=== PATIENT | male | born 1980 | race Caucasian/White ===

== ENCOUNTER 2016-08-12 14:59 | Inpatient (IN) | payer OTHER ==
[~2016-08-12] VITALS: Ht 188 cm; Wt 113.1 kg
[~2016-08-12 14:59] MED LIST: AMLODIPINE BESY10 M1 PO; AMOXICILLIN500 M3 PO; ATIVAN1 M1 PO; ATORVASTATIN CA10 M1 PO; BENTYL20 M1 PO; BENZTROPINE MESY1 M1; CHLORPROMAZINE100 M2; CLINDAMYCIN HC300 M1 PO; DEPAKOTE500 M1 PO; DILAUDID2 MG PO; DIVALPROEX SOD250 M2 PO; FOLIC ACID 1 MG PO; GABAPENTIN300 M2 PO; IBUPROFEN800 M1 PO; LATUDA40 M1 PO; LISINOPRIL20 M1 PO; LITHIUM CARBON600 MG PO; LOPRESSOR50 MG PO; MELATONIN5 M1 PO; NAPROSYN500 MG PO; NAPROXEN500 M2 PO; NAPROXEN500 MG PO; NEURONTIN100 MG PO; NEURONTIN400 MG PO; NICOTINE LOZENGE2 MG PO; NORCO 5-325 TA1 EACH PO; OLANZAPINE20 M1 PO; PERCOCET 325 MG1 TA2 PO; PERCOCET 5-3251 EACH PO; PREDNISONE10 MG PO; SEROQUEL (MONO200 MG PO; SEROQUEL 100MG100 MG PO; SEROQUEL50 MG PO; TRAZODONE HCL100 M1 PO; VALIUM5 M1 PO; VITAMIN B-150 MG PO; WELLBUTRIN XL300 MG PO; ZOFRAN ODT4 M1 SL
--- NOTE | 2016-08-12 15:05 | NUR ---
PT STATES HE TOOK AN OVERDOSE OF FLEXERIL 400MG IN AN ATTEMPT TO KILL HIMESELF. PT STATES HE HAS BEEN DEPRESSED. PT ADMITS TO ETOH DAILY AND NEEDS DETOX FROM THAT ALSO. PT STATES HE ALSO SMOKES POT. +SI -HI. PT LAST DETOX WAS 2 WEEKS AGO.
--- NOTE | 2016-08-12 15:06 | NUR ---
PT REPORTS HIS LAST DRINK WAS YESTERDAY
--- NOTE | 2016-08-12 15:11 | ED PSYCHIATRIC COMPLAINT ---
History of Present Illness General Chief Complaint: ETOH/Drug Related Complaint Stated Complaint: ?OVERDOSE Vital Signs & Intake/Output Vital Signs & Intake/Output Vital Signs Date Time Temp Pulse Resp B/P Pulse O2 O2 Flow FiO2 Ox Delivery Rate 08/12 1505 96.7 117 18 153/99 95 Room Air Allergies Coded Allergies: fluoxetine (Intermediate, ANXIETY 06/24/16) Reconcile Medications Divalproex Sodium (Depakote) 500 MG TABLET.DR 1,500 MG PO DAILY MENTAL HEALTH (Reported) Gabapentin 300 MG CAPSULE 1 CAP PO TID ANXIETY (Reported) Lisinopril 20 MG TABLET 1 TAB PO DAILY BP (Reported) Nicotine Polacrilex (Nicotine Lozenge) 2 MG LOZENGE 1 GUILLE PO AD PRN SMOKING CESSATION (Reported) Olanzapine 20 MG TABLET 0.5 TAB PO QPM MENTAL HEALTH (Reported) Trazodone HCl 100 MG TABLET 1 TAB PO QPM SLEEP (Reported) Triage Note: PT STATES HE TOOK AN OVERDOSE OF FLEXERIL 400MG IN AN ATTEMPT TO KILL HIMESELF. PT STATES HE HAS BEEN DEPRESSED. PT ADMITS TO ETOH DAILY AND NEEDS DETOX FROM THAT ALSO. PT STATES HE ALSO SMOKES POT. +SI -HI. PT LAST DETOX WAS 2 WEEKS AGO. Past History Travel History Traveled to [place] past 21 day No Medical History Neurological: delerium tremens, restless leg syndrome, ETOH W/D SEIZURES EENT: NONE Cardiovascular: hypertension, hyperlipidemia Respiratory: NONE Gastrointestinal: NONE Hepatic: NONE Renal: NONE Musculoskeletal: LEFT KNEE MENISCAL TEAR Psychiatric: anxiety, depression, substance abuse, S.I. BIPOLAR DISORDER OVERDOSE suicide attempt X 15 events Endocrine: NONE Blood Disorders: NONE Cancer(s): NONE SU[employer]/Reproductive: NONE History of MRSA: No History of VRE: No History of CDIFF: No Surgical History Surgical History: hernia repair-umbilical Psychosocial History Who do you live with Patient/Self Services at Home None What is your primary language Mauritanian Tobacco Use: Current Daily Use Daily Tobacco Use Amount/Type: => 5 Cigarettes daily ETOH Use: alcoholic Illicit Drug Use: denies illicit drug use Progress Plan of Care: Orders Procedure Date/time Status CIWA 08/12 1516 Active Continuous Observation Monitor 08/12 1510 Active URINE DRUGS OF ABUSE 08/12 1510 Active ACETOMINOPHEN 08/12 1510 Active TROPONIN LEVEL 08/12 1510 Active SALICYLATE 08/12 1510 Active ETHANOL 08/12 1510 Active COMPREHENSIVE METABOLIC PANEL 08/12 151 Active CBC WITHOUT DIFFERENTIAL 08/12 151 Active EKG 08/12 151 Active ED CRISIS PSYCH CONSULT 08/12 151 Active Departure Departure Condition: Stable Referrals: AISHA SUNG MD (PCP/Family) Departure Forms: Customer Survey General Discharge Information
--- NOTE | 2016-08-12 15:35 | ED PSYCHIATRIC COMPLAINT ---
History of Present Illness General Chief Complaint: ETOH/Drug Related Complaint Stated Complaint: ?OVERDOSE Source: patient Exam Limitations: no limitations Vital Signs & Intake/Output Vital Signs & Intake/Output Vital Signs Date Time Temp Pulse Resp B/P Pulse O2 O2 Flow FiO2 Ox Delivery Rate 08/13 0600 79 21 106/76 08/13 0400 97.3 75 22 122/74 08/13 0400 96 Nasal 3.0L Cannula 08/13 0200 77 19 118/78 08/13 0000 97.7 84 27 130/100 08/13 0000 97.7 84 27 130/100 97 Nasal 2.0L Cannula 08/13 0000 97 Nasal 2.0L Cannula 08/12 2199 82 15 115/71 08/12 2147 Nasal 2.0L Cannula 08/12 2027 97 Nasal 2.0L Cannula 08/12 2018 97.9 81 23 124/86 08/12 1915 96.7 97 16 125/75 08/12 1914 96.5 97 16 125/75 97 Nasal 6.0L Cannula 08/12 1810 96.5 91 16 125/66 08/12 1810 96.5 92 16 125/66 97 Nasal 6.0L Cannula 08/12 1659 97.1 95 14 142/83 08/12 1657 97.3 93 14 142/83 96 Nasal 6.0L Cannula 08/12 1622 93 Nasal 6.0L Cannula 08/12 1611 15 93 Nasal 6.0L Cannula 08/12 1610 98.3 90 15 143/83 08/12 1610 98.3 90 15 143/83 89 Room Air 08/12 1505 96.7 117 18 153/99 95 Room Air ED Intake and Output 08/13 0000 08/12 1200 Intake Total 384 Output Total 600 Balance -216 Intake, IV 384 Intake, Oral 0 Number 0 Bowel Movements Output, Urine 600 Patient 242 lb Weight Allergies Coded Allergies: fluoxetine (Intermediate, ANXIETY 06/24/16) Triage Note: PT STATES HE TOOK AN OVERDOSE OF FLEXERIL 400MG IN AN ATTEMPT TO KILL HIMESELF. PT STATES HE HAS BEEN DEPRESSED. PT ADMITS TO ETOH DAILY AND NEEDS DETOX FROM THAT ALSO. PT STATES HE ALSO SMOKES POT. +SI -HI. PT LAST DETOX WAS 2 WEEKS AGO. Triage Nurses Notes Reviewed? yes Onset: Abrupt HPI: 35-year-old male with a history of alcohol withdrawal seizures and DTs comes into emergency room after taking 400 mg of Flexeril at home. he reports that he recently started drinking alcohol again. Last drink was yesterday. Patient reports that he ran out of alcohol and decided to take 400 mg of Flexeril to try to end his life. Denies any other drug use. Patient just feels shaky at this time. Denies any pain. Denies any other associated symptoms. (JOHAN VILLARREAL) Reconcile Medications Acetaminophen (Tylenol Extra Strength) 500 MG TABLET 2 TAB PO AD PAIN/FEVER ( Reported) Atorvastatin Calcium 10 MG TABLET 1 TAB PO DAILY cholesterol (Reported) Cyclobenzaprine HCl 10 MG TABLET 1 TAB PO TID muscle relaxant (Reported) Divalproex Sodium (Depakote) 500 MG TABLET.DR 1,500 MG PO QHS MENTAL HEALTH ( Reported) Gabapentin 400 MG CAPSULE 1 CAP PO TID UNKNOWN (Reported) Lisinopril 20 MG TABLET 1 TAB PO DAILY BP (Reported) Nicotine Polacrilex (Nicotine Lozenge) 4 MG LOZENGE smoking cessation (Reported ) Olanzapine 20 MG TABLET 1 TAB PO QPM bipolar (Reported) Paroxetine HCl (Paxil) 10 MG TABLET 1 TAB PO DAILY UNKNOWN (Reported) Trazodone HCl 100 MG TABLET 1 TAB PO QPM SLEEP (Reported) (MOE PRIETO,SOFI) Past History Travel History Traveled to [place] past 21 day No Medical History Any Pertinent Medical History? see below for history Neurological: delerium tremens, restless leg syndrome, ETOH W/D SEIZURES EENT: NONE Cardiovascular: hypertension, hyperlipidemia Respiratory: NONE Gastrointestinal: NONE Hepatic: NONE Renal: NONE Musculoskeletal: LEFT KNEE MENISCAL TEAR Psychiatric: anxiety, depression, substance abuse, S.I. 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 No (JOHAN VILLARREAL) Review of Systems Review of Systems Constitutional: Reports: see HPI. EENTM: Reports: no symptoms. Respiratory: Reports: no symptoms. Cardiovascular: Reports: no symptoms. GI: Reports: no symptoms. Genitourinary: Reports: no symptoms. Musculoskeletal: Reports: no symptoms. Skin: Reports: no symptoms. Neurological/Psychological: Reports: see HPI. Hematologic/Endocrine: Reports: no symptoms. Immunologic/Allergic: Reports: no symptoms. All Other Systems: Reviewed and Negative (JOHAN VILLARREAL) Physical Exam Physical Exam General Appearance: well developed/nourished, mild distress Head: atraumatic Eyes: Bilateral: normal appearance, EOMI. Ears, Nose, Throat: normal ENT inspection, hearing grossly normal Neck: normal inspection Respiratory: normal breath sounds, no respiratory distress Cardiovascular: regular rate/rhythm, tachycardia Extremities: normal range of motion Neurological/Psychiatric: awake, alert, calm, depressed affect Appearance/Memory/Insight: appropriate appearance Behavoir/Eye Contact/Speech: cooperative Skin: intact, normal color, warm/dry SAD PERSONS Done? unobtained due to conditi (JOHAN VILLARREAL) Progress Differential Diagnosis: dementia, drug intoxication, drug overdose, drug withdrawal, electrolyte abnormality, encephalitis, hypoglycemia, hypothyroidism, IC hem/mass/tumor, meningitis Plan of Care: Orders Procedure Date/time Status ICU LAB BUNDLE 08/14 0500 Active Regular Diet 08/13 B Active House Staff 08/13 0754 Active ICU LAB BUNDLE 08/13 0500 Complete CBC WITHOUT DIFFERENTIAL 08/13 0500 Complete EKG 08/13 0500 Active Lab Add-on Test 08/13 0001 Active MISSING MEDICATION FORM 08/13 UNK Active EKG 08/12 2300 Active RT: Evaluation 08/128 Active Weight 08/12 2025 Active VTE Mechanical Prophylaxis 08/12 2025 Active Turn and Reposition 08/12 2025 Active Teach/Educate 08/12 2025 Active Skin Integrity Protocol 08/12 2025 Active Skin/Pressure Ulcer Assess (Sk 08/12 2025 Active Precautions 08/12 2025 Active Pain Treatment and Response 08/12 2025 Active Nutritional Intake, Monitor 08/12 2025 Active Isolation 08/12 2025 Active Patient Care Conference 08/12 2025 Active Activity/Ambulation 08/12 2025 Active ARTERIAL BLOOD GAS (GEN) 08/12 2008 Complete TRC EVALUATION (GEN) 08/12 1945 Complete OXYGEN SETUP (GEN) 08/12 1945 Active Pathway - chart 08/12 194 Active House Staff 08/12 194 Active Patient Data 08/12 194 Active SOCIAL WORK CONSULT 08/12 194 Active Code Status 08/12 194 Active VRE ACTIVE SURVIELLANCE 08/12 194 Active ACTIVE SURVEILLANCE NARES 08/12 194 Active Patient Data 08/12 1840 Active Admit to inpatient 08/12 1751 Active Vital Signs 08/12 1751 Active Code Status 08/12 1751 Complete Intake & Output 08/12 1622 Active CIWA 08/12 1516 Active Continuous Observation Monitor 08/12 1510 Complete URINE DRUGS OF ABUSE 08/12 1510 Complete ACETOMINOPHEN 08/12 1510 Complete TROPONIN LEVEL 08/12 1510 Complete SALICYLATE 08/12 1510 Complete PHOSPHORUS 08/12 1510 Complete MAGNESIUM 08/12 1510 Complete LIPASE 08/12 1510 Complete ETHANOL 08/12 1510 Complete COMPREHENSIVE METABOLIC PANEL 08/12 1510 Complete CBC WITHOUT DIFFERENTIAL 08/12 1510 Complete AMYLASE 08/12 1510 Complete EKG 08/12 1510 Active OXYGEN SETUP CHG 08/12 UNK Complete OXYGEN 08/12 UNK Complete OXYGEN TRANSPORT 08/12 UNK Complete THERAPIST ORDERS 08/12 UNK Complete OXYGEN SETUP (GEN) 08/12 UNK Complete Lab Add-on Test 08/12 UNK Active VTE Mechanical Prophylaxis 08/12 UNK Active Patient Safety Monitor 08/12 UNK Active Seizure Precautions 08/12 UNK Active Precautions 08/12 UNK Active CIWA 08/12 UNK Complete PSYCHIATRIC CONSULT 08/12 UNK Active Current Medications Sig/Minerva Start time Last Medication Dose Stop Time Status Admin Lorazepam 2 MG Q6 08/13 1200 AC (Ativan) Cyanocobalamin/ 1 BAG DAILY 08/13 1000 AC Thiamine/Pyridoxine (Vitamin in I.V.) Dextrose/Water 1,000 ML (D5W 1000) Laboratory Tests 08/13/16 0405: Anion Gap 8, Estimated GFR > 60, Glucose 87, Calcium 9.1, Phosphorus 3.6, Magnesium 2.2, Total Bilirubin 0.9, AST 15 L, ALT 32, Albumin 4.0, CBC w Diff NO MAN DIFF REQ, RBC 5.33, MCV 92.5, MCH 32.0 H, RDW 13.0, MPV 7.1 L, Gran % 38.8 L, Lymphocytes % 48.0, Monocytes % 9.4 H, Eosinophils % 3.2, Basophils % 0.6, Absolute Granulocytes 1.8, Absolute Lymphocytes 2.3, Absolute Monocytes 0.4 , Absolute Eosinophils 0.2, Absolute Basophils 0, PUBS MCHC 34.6 08/12/162044: P-50 (Temp Corrected) N, Oxyhemoglobin 95.6, Carboxyhemoglobin 5.7 *H, Methemoglobin 0.2, Calc Total Hemoglobin 17.0, Oxygen Content 21.5, O2 Concentration % 2L, Temperature 98.6, O2 Delivery Method N/C, Phlebotomy Draw Site RIGHT BRACHIAL 08/12/162044: pH 7.43, pCO2 39, pO2 77 L, HCO3 25, ABG O2 Sat (Measured) 90.0 L, P-50 (Temp Corrected) N, Carboxyhemoglobin 5.7 *H, O2 Concentration % 2L, Temperature 98.6, O2 Delivery Method N/C, Phlebotomy Draw Site RIGHT BRACHIAL 08/12/16 1600: CBC w Diff NO MAN DIFF REQ, RBC 5.32, MCV 91.5, MCH 32.0 H, RDW 13.0, MPV 7.0 L, Gran % 44.1, Lymphocytes % 43.7, Monocytes % 10.2 H, Eosinophils % 1.7, Basophils % 0.3, Absolute Granulocytes 1.6, Absolute Lymphocytes 1.6, Absolute Monocytes 0.4, Absolute Eosinophils 0.1, Absolute Basophils 0, PUBS MCHC 35.0, Urine Opiates Screen < 100.00, Methadone Screen < 40, Barbiturate Screen < 60, Ur Phencyclidine Scrn < 6.00, Amphetamines Screen < 100, U Benzodiazepines Scrn > 800 H, Urine Cocaine Screen < 50, Urine Cannabis Screen > 80.00 H 08/12/16 1510: Anion Gap 9, Estimated GFR > 60, BUN/Creatinine Ratio 11.8, Glucose 81, Calcium 9.5, Phosphorus 3.1, Magnesium 1.7, Total Bilirubin 0.9, AST 17, ALT 28, Alkaline Phosphatase 60, Troponin I < 0.01, Total Protein 7.3, Albumin 4.3, Globulin 3.0, Albumin/Globulin Ratio 1.4, Amylase < 30 L, Lipase 46, Salicylates < 1.0, Acetaminophen < 10.0 L, Serum Alcohol < 10.0 Microbiology 08/12 2029 UPPER RESP: Surveillance Culture - RECD 08/12 2029 GI: Surveillance Culture - RECD Patient was seen and examined with KALE Hi. He presented for a Flexeril overdose and suicide attempt. Upon arrival to the emergency department he became more obtunded although he was still easily arousable to touch. Poison control was contacted and recommends supportive care. He does have a history of significant alcohol withdrawal and should he require Ativan he would become more sedated and may require airway monitoring and management. He will be admitted to the ICU under Dr. Lockwood service. (SOFI ROSA MD) Initial ED EKG: NSR (SOFI ROSA MD) Departure Departure Clinical Impression Primary Impression: Overdose of muscle relaxant Secondary Impressions: ETOH abuse, Respiratory depression Referrals: AISHA SUNG MD (PCP/Family) Departure Forms: Customer Survey General Discharge Information Comments 08/12/2016 5:54:21 PM I spoke with poison control. Supportive care with monitoring on cardiac telemetry. Patient has a seizure then benzodiazepines. Patient has a widened QRS and sodium bicarbonate. Vital signs stable at this time. (JOHAN VILLARREAL) Departure Time of Disposition: 1751 Disposition: STILL A PATIENT Condition: Guarded Admission Note Spoke With: GONZALO LOCKWOOD MD Documentation of Exam: Documentation of any treatments & extenuating circumstances including Concerns Regarding Discharge (functional status, medication knowledge or non-compliance, living conditions, etc.) that warrant an admission rather than observation: [ICU MONITOR, AIRWAY MONITORING, NEURO CHECKS, IV FLUIDS, SUPPORTIVE CARE, MONITOR I+ O, TOX CONSULT, 1:1 SITTER, MONITOR FOR DETOX, CIWA PROTOCOL, CRISIS WHEN STABLE ] PA/HABILITATION WORKER Co-Sign Statement Statement: ED Attending supervision documentation- [X] I saw and evaluated the patient. I have also reviewed all the pertinent lab results and diagnostic results. I agree with the findings and the plan of care as documented in the PA's/HABILITATION WORKER's documentation. [X] I have reviewed the ED Record and agree with the PA's/HABILITATION WORKER's documentation. [] Additions or exceptions (if any) to the PAs/HABILITATION WORKER's note and plan are summarized below: [] (SOFI ROSA MD) Critical Care Note Critical Care Note Critical Care Time: 30-74 min (JOHAN VILLARREAL)
--- NOTE | 2016-08-12 16:08 | NUR ---
PT TO ROOM 6, WANDED BY SECURITY AND CHANGED INTO BLUE SCRUBS, SITTER PRESENT, EVAL BY KALE ADAM. BLOOD AND URINE SENT BY RUST, EKG DONE. IV EST, PT NOTED TO BE AROUSABLE BUT SLEEPY WITH RA SATS 89%. SATS 90-95 ON NC [address] ROSA. HOB ELEVATED. PER KALE AND DR ROSA, HOLD ATIVAN NOW GIVEN SEDATION. WILL CTM.
[2016-08-12 16:10] VITALS: BP 143/83
[2016-08-12 16:17] LABS: HEMATOCRIT 48.7 % (42-52); MEAN CORPUSCULAR VOLUME 91.5 FL (80.0-94.0); PLATELET COUNT 207 /CUMM (130-400); RED BLOOD CELL CT 5.32 /CUMM (4.70-6.10); WHITE BLOOD CELL COUNT 3.7 /CUMM (4.8-10.8)
[2016-08-12 16:18] LABS: ABSOLUTE BASOPHIL COUNT 0 /CUMM (0.0-0.2); ABSOLUTE EOSINOPHIL COUNT 0.1 /CUMM (0.0-0.7); ABSOLUTE GRANULOCYTE CT 1.6 /CUMM (1.4-6.5); ABSOLUTE LYMPH COUNT 1.6 /CUMM (1.2-3.4); ABSOLUTE MONOCYTE COUNT 0.4 /CUMM (0.10-0.60); BASOPHIL % 0.3 % (0.0-2.0); EOSINOPHIL % 1.7 % (0-5); GRANULOCYTE % 44.1 % (42.2-75.2)
[2016-08-12] MEDS ORDERED: GABAPENTIN400 M2 PO (16:34)
[2016-08-12] MEDS ORDERED: PAXIL10 M1 PO (16:34)
[2016-08-12] MEDS ORDERED: TYLENOL EXTRA500 M2 PO (16:36)
[2016-08-12 16:59] VITALS: BP 142/83
--- NOTE | 2016-08-12 17:00 | NUR ---
VSS, SITTER PRESENT. PT BECOMING MORE SEDATED, MOVES HEAD SLIGHTLY AND MUMBLES "COOL" WHEN ASKED TO SPEAK, MAINTAINING 02 SATS MID 90S ON NC. SEIZURE PADS IN PLACE.
--- NOTE | 2016-08-12 17:52 | NUR ---
D/W KALE ADAM, PT REMAINS VERY SEDATED THOUGH WITH STABLE VS. WILL CONT TO HOLD ATIVAN AT THIS TIME AND CTM. SITTER REMAINS IN ATTENDANCE.
[2016-08-12 18:10] VITALS: BP 125/66
--- NOTE | 2016-08-12 18:37 | NUR ---
REMAINS STABLE WITH VSS, SITTER IN ATTENDANCE, NO DETOX SX, REMAINS SEDATED, OPENS EYES AND GRUNTS WITH STIMULATION BUT DOES NOT SPEAK.
--- NOTE | 2016-08-12 18:48 | NUR ---
BED ASSIGNMENT 104
--- NOTE | 2016-08-12 18:55 | History & Physical ---
BONI GODFREY MD 08/12/16 5970: General Information and HPI MD Statement: I have seen and personally examined MAYO SÁNCHEZ and documented this H&P. The patient is a 35 year old M who presented for substance overdose and suicide attempt. History of Present Illness: 35-year-old male seen for evaluation of toxic ingestion after a suicidal attempt. Patient is obtundended and collateral information was obtained from ED records. This afternoon patient reportedly walked into the ER stating he took "400 mg of Flexeril "in an attempt to "kill himself ". At time of initial evaluation he reportedly had suicidal ideation and denied any homicidal ideation. He is mimimally rousable to verbal and tactile stimuli. When asked if he has any pain he slowly shakes his head indicating no. Review of systems is unobtainable. PMHx: EtOH abuse/dependence, EtOH withdrawal seizures, Delerium Tremens, Suicidial Ideation with "40+" attempts, Bipolar Disorder, Anxiety, Depression, Hypertension, Hyperlipidemia Allergies/Medications Allergies: Coded Allergies: fluoxetine (Intermediate, ANXIETY 06/24/16) bupropion (Mild, Increase in afshan, reported on a previous admission 08/13/16) Home Med list Acetaminophen (Tylenol Extra Strength) 500 MG TABLET 2 TAB PO AD PAIN/FEVER ( Reported) Atorvastatin Calcium 10 MG TABLET 1 TAB PO DAILY cholesterol (Reported) Cyclobenzaprine HCl 10 MG TABLET 1 TAB PO TID muscle relaxant (Reported) Divalproex Sodium (Depakote) 500 MG TABLET.DR 1,500 MG PO QHS MENTAL HEALTH ( Reported) Gabapentin 400 MG CAPSULE 1 CAP PO TID UNKNOWN (Reported) Lisinopril 20 MG TABLET 1 TAB PO DAILY BP (Reported) Nicotine Polacrilex (Nicotine Lozenge) 4 MG LOZENGE smoking cessation (Reported ) Olanzapine 20 MG TABLET 1 TAB PO QPM bipolar (Reported) Paroxetine HCl (Paxil) 10 MG TABLET 1 TAB PO DAILY UNKNOWN (Reported) Trazodone HCl 100 MG TABLET 1 TAB PO QPM SLEEP (Reported) Past History Travel History Traveled to [place] past 21 day No Medical History Neurological: delerium tremens, restless leg syndrome, ETOH W/D SEIZURES EENT: NONE Cardiovascular: hypertension, hyperlipidemia Respiratory: NONE Gastrointestinal: NONE Hepatic: NONE Renal: NONE Musculoskeletal: LEFT KNEE MENISCAL TEAR Psychiatric: anxiety, depression, substance abuse, S.I. 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 Ambulation: independent IADLs Independent: shopping, housework, finances, food prep, telephone, transportation , medication admin. Review of Systems Review of Systems Constitutional: Reports: see HPI. Exam & Diagnostic Data Last 24 Hrs of Vital Signs/I&O Vital Signs Date Time Temp Pulse Resp B/P Pulse O2 O2 Flow FiO2 Ox Delivery Rate 08/12 191 96.7 97 16 125/75 08/12 1914 96.5 97 16 125/75 97 Nasal 6.0L Cannula 08/12 1810 96.5 91 16 125/66 08/12 1810 96.5 92 16 125/66 97 Nasal 6.0L Cannula 08/12 1659 97.1 95 14 142/83 08/12 1657 97.3 93 14 142/83 96 Nasal 6.0L Cannula 08/12 1622 93 Nasal 6.0L Cannula 08/12 1611 15 93 Nasal 6.0L Cannula 08/12 1610 98.3 90 15 143/83 08/12 1610 98.3 90 15 143/83 89 Room Air 08/12 1505 96.7 117 18 153/99 95 Room Air Intake & Output 08/12 1600 08/12 0800 08/12 0000 Intake Total Output Total Balance Patient 113.398 kg Weight Physical Exam General Appearance Mild Distress Skin No Rashes, No Breakdown, No Significant Lesion HEENT Atraumatic, Mucous Membr. moist/pink, Pupils fixed and nonreactive Neck Supple, No LAD Cardiovascular Regular Rate, Normal S1, Normal S2, No Murmurs Lungs Clear to Auscultation, Normal Air Movement Abdomen Normal Bowel Sounds, Soft, No Hepatospenomegaly, No Masses, mild epigastric tenderness Neurological Lethargic/Somnolent, Pupils nonreactive Extremities No Clubbing, No Cyanosis, No Edema, Normal Pulses, No Tenderness/ Swelling Vascular Normal Pulses, Pulses Symmetrical Last 24 Hrs of Labs/Dieter: Laboratory Tests 08/12/16 1600: CBC w Diff NO MAN DIFF REQ, RBC 5.32, MCV 91.5, MCH 32.0 H, RDW 13.0, MPV 7.0 L, Gran % 44.1, Lymphocytes % 43.7, Monocytes % 10.2 H, Eosinophils % 1.7, Basophils % 0.3, Absolute Granulocytes 1.6, Absolute Lymphocytes 1.6, Absolute Monocytes 0.4, Absolute Eosinophils 0.1, Absolute Basophils 0, PUBS MCHC 35.0, Urine Opiates Screen < 100.00, Methadone Screen < 40, Barbiturate Screen < 60, Ur Phencyclidine Scrn < 6.00, Amphetamines Screen < 100, U Benzodiazepines Scrn > 800 H, Urine Cocaine Screen < 50, Urine Cannabis Screen > 80.00 H 08/12/16 1510: Anion Gap 9, Estimated GFR > 60, BUN/Creatinine Ratio 11.8, Glucose 81, Calcium 9.5, Total Bilirubin 0.9, AST 17, ALT 28, Alkaline Phosphatase 60, Troponin I < 0.01, Total Protein 7.3, Albumin 4.3, Globulin 3.0, Albumin/Globulin Ratio 1.4, Amylase Pending, Lipase Pending, Salicylates < 1.0, Acetaminophen < 10.0 L, Serum Alcohol < 10.0 Microbiology 08/12 1942 UPPER RESP: Surveillance Culture - ORD 08/12 1942 GI: Surveillance Culture - ORD Diagnostic Data EKG Results NSR HR 96, AL 168, QTc 430 Assessment/Plan Assessment: 35 year old male with an extensive history of psychiatric illness and multiple suicide attempts seen for polysubstance overdose and suicide attempt. Poison control was reportedly contacted by ED staff for which no immediate intervention was recommended other than supportive care and telementry monitoring. Vital signs: Temp 96.5-98.3, HR 91-117, RR 14-18, BP 125-153/66-99, O2 89-97% 6.0L via NC. Physical Exam: well developed, young somnolent appearing male in no acute distress with a normal cardio/pulmonary exam and mild epigastric abdominal tenderness and a limited neurological exam, pupils fixed and not reactive. Lab work demontrated a CBC/CMP/LFTs within normal limits. EKG NSR HR 97, AL 168, QTc 430.UTox positive for Cannabis and Benzodiazepines. Patient was admitted to the ICU for closer monitoring and respiratory support. Problem List: - Polysubstance overdose - Suicide attempt - Bipolar Disoder - Anxiety - Depression - EtOH Abuse/Dependence Psychiatry/Respiratory: History of EtOH Abuse/Dependence, DTs, EtOH Withdrawal Seizures, Multiple Suidice Attempts, Polysubstance abuse, Bipolar Disoder, Anxiety, Depression. He has many previous suicide attempts. - CIWA / Ativan PRN - Hold all home medications - MV/Thiamine/Folate - Respiratory support - Interval EKG monitoring for widened QRS, treat with NaHCO3 - Seizure procautions, treat with benzodiazepines - Psych consult when appropriate - Obtain collateral information - NPO Metabolic: Given patients substance ingestion electrolytes and EKG need to be monitored. -D51/2NS @ 75 -Daily CBC, Chemistries -Daily EKG Gastrointestinal: Patient responded to mild abdominal pressure and nodded when asked if his abdoment hurt. Given his history of polysubstance ingestion differentials such as pancreatitis should be considered. - Follow up amylase/lipase Cardiovascular: History of Hypertension, Hyperlipidemia. - Hold atorvastatin, lisinopril Diet - NPO DVT PPx - Heparin SC Code Status - FULL CODE as per records, confirm when alert As Ranked By This Provider Problem List: 1. Suicide attempt Core Measures/Miscellaneous Acute Coronary Syndrome ACS Diagnosis: No Cerebrovascular Accident CVA/TIA Diagnosis: No Congestive Heart Failure CHF Diagnosis: No Venous Thromboembolism VTE Risk Factors: No Risk Factors VTE Prophylaxis Ordered Inpt: [facility]- [facility] prophylaxis d/t: No contraindications No VTE Pharm Prophylaxis d/t: No contraindications VTE Diagnosis: No VTE Type: NONE VTE Confirmed by (Test): NONE Severe Sepsis Severe Sepsis Present: No Septic Shock Septic Shock Present: No Miscellaneous Documentation Attending Case Discussed With: GONZALO PRESTON MD Primary Care Physician: AISHA SUNG MD Patient sees these Specialists Unknown Level of Patient Care: Critical Care (CRI) PRERNA GAITAN 08/12/16 2015: Resident Review Statement Resident Statement: discussed with music intern Other Findings: He is 35-year-old man with past medical history of polysubstance abuse (history of lithium overdose status post hemodialysis twice), extensive history of multiple suicidal attempts and inpatient psych hospitalization, hypertension, bipolar disorder, depression, anxiety, alcohol abuse presented to ER after taking 400 mg of Flexeril at home. Most of the history was obtained from the ED staff because by the time we got into patient's room he was sedated and not able to provide history. He reported that he recently started drinking alcohol again. Last drink was yesterday. Patient reported that he ran out of alcohol and decided to take 400 mg of Flexeril to try to end his life. Denied any other drug use. Patient just felt shaky at that time. When he came into ER his temperature was 96.7, pulse 117, respiratory rate 18, blood pressure 153/99 and oxygen saturation 95% on room air. In ED he got 1 mg of IV Ativan 1. During the ED course he became drowsy and sedated. He was saturating 89% on room air. He was put on 6 L of oxygen via nasal cannula and oxygen saturation was 90-95%. Upon our evaluation patient was opening his eyes upon shaking and calling his name. He was able to follow commands. Was not able to provide much history but complaining of belly pain and back pain. Poison control was also contacted in ED and they recommended supportive care with cardiac monitoring. No one from family was contacted from ED. On [employer] there is a female friend contact number. I tried to call her but it's going directly to [email or web address] and that voicemail has been set up under different name. There is no other contact number in any previous medical record. Positive physical exam findings: Minimally reactive and dilated pupils, tachycardia on cardiac auscultation without any murmurs Pertinent labs on admission: WBC 3.7, U tox positive for benzos and cannabis EKG upon admission: Sinus tachycardia with heart rate 95, no acute ST-T wave changes, QTc 430 Assessment and plan He is 35-year-old man with past medical history of polysubstance abuse (history of lithium overdose status post hemodialysis twice), extensive history of multiple suicidal attempts and inpatient psych hospitalization, hypertension, bipolar disorder, depression, anxiety, alcohol abuse is going to be admitted in ICU for: Problem list 1. Acute hypoxemic respiratory failure secondary to substance overdose (took 400 mg of Flexeril). U tox positive for benzos and cannabis 2. History of polysubstance abuse and alcohol abuse 3. History of bipolar disorder/depression/anxiety/suicide attempts 4. History of hypertension Monitor vitals closely. Keep close eye on respiratory status. Low threshold for intubation. Telemetry monitoring. We will get ABGs now. Cyclobenzaprine is considered a Tricyclic antidepressant. Overdose can cause vital signs abnormalities, mental status change, seizures, cardiac conduction abnormalities. Will keep patient nothing by mouth for now given his mental status. Fall precautions, seizure precautions. In case of his seizures we can treat him with lorazepam. EKG in a.m. to see any QRS prolongation. In case of cardiac conduction abnormalities and QRS changes we can treat him with sodium bicarbonate. CIWA protocol. Ativan IV as needed per CIWA. Banana bag. IV fluids at rate of 1 25 mL per hour. Watch for DTs. Will check electrolytes daily and replete accordingly. Will avoid benzos and anticholinergics. Psych and social work consult. Subcutaneous heparin for DVT prophylaxis. Continue safety monitor. We are holding all his medications for now. Will check CT [employer]. Full code. GONZALO PRESTON MD 08/12/162121: Attending MD Review Statement Attending Statement Attending MD Statement: examined this patient, discuss w/resident/PA/CHUCK SPLITTER, agreed w/resident/PA/CHUCK SPLITTER, reviewed EMR data (avail), discussed with nursing, reviewed images, amended to note Attending Assessment/Plan: The patient is a 35 yo male with h/o bipolar disorder/depression, anxiety, EtOH dependence, HTN, HL and back pain as well as multiple suicide attempts who presented in the ED after admitted ingestion of 400 mg of cyclobenzaprine that was recently prescribed by his physician. His tox screen was also positive for benzos and cannabinoids. He had recently undergone alcohol detox. He was initially conversant in the ED, however became more somnolent with dilated pupils. His oxygen saturation dropped to 89% and he required nasal oxygen support. Physical Exam: VS: T 96.7, P 97, R 16, BP 125/75, PO 98% nasal canula 6 L HEENT: eyes- dilated and minimally responsive to light, unable to check EOM afia- dry mucosa w/o lesions, + gag reflex Neck: supple w/o adenopathy Chest: clear Cor: borderline tachy, nl S1, S2 w/o Abd: BS+, soft, NT, - HSM Ext: no edema Neuro: the patient was somnolent, however arousable at the time of my exam. OVIEDO, non-focal, DTR's and sensory intact, toes downgoing Labs/Tests: as above Impression/Plan: #Overdose Cyclobenzaprine- patient admitted to taking 400 mg of cyclobenzaprine on arrival in ED. Clinical course deteriorated in ED with progressive somnolence. EKG shows nl QRS, no arrhythmia noted. Plan: Admit to ICU for close cardiac and respiratory monitoring. Follow QRS on EKG and observe for arrhythmia and hypotension. If respiratory depression occurs, check ABG's - continue oxygen support. Aggressive IV hydration- may need to add bicarbonate to IV fluids if QRS widening or arrhythmia. Seizure precautions. Watch for aspiration. Please check CTPMP to see if patient has been prescribed benzos. Consider Flumazenil (BZD receptor antagonist) if benzo OD is suspected. Check ABG's. #H/O Alcohol Dependence/Abuse- recent detox noted and patient admitted to drinking some alcohol. Blood level negative at time of presentation. Concern regarding giving benzos (Ativan) in presence of current sedation. Plan: Will administer thiamine, MVI, folate, etc as per protocol. Concern if Ativan is needed as patient already sedated and may require respiratory support. #Bipolar/Anxiety/Depression/Suicide Attempt- Patient unable to give history at the time of my exam, however does have significant psychiatric history and multiple prior suicidal attempts. Has been on SSRI (paroxetine), Olanzapine, Trazodone, Divalproex & gabapentin. Patient stated he had not been taking psych meds. Plan: Will need sitter- psych consultation and most likely transfer to psychiatry service. #Hypertension- patient normally on Lisinopril. Must watch for hypotension with cyclobenzaprine overdose. Plan: Monitor BP and hold Lisinopril/antihypertensive at present. #Back Pain- patient received cyclobenzaprine from PCP office. Uncertain prior back pain workup. Plan: Will observe once sedation clears. #Leukopenia- WBC 3.7 which is new. This is possible side effect of cyclobenzaprine OD. Plan: Follow-up WBC in morning. #Hyperlipidemia- was on Atorvastatin. Plan: Hold medication at present. Will check OP chart ([employer] to obtain family contact numbers as nobody was reached based on information in IP chart.
[2016-08-12 19:15] VITALS: BP 125/75
--- NOTE | 2016-08-12 19:15 | NUR ---
HOUSE STAFF AT BEDSIDE. ICU CALLED FOR REPORT, NURSE UNABLE TO TAKE REPORT AT THIS TIME.
[2016-08-12] MEDS ORDERED: CYCLOBENZAPRINE10 M1 PO (19:27)
[2016-08-12] MEDS ORDERED: NICOTINE LOZENGE4 MG PO (19:28)
[2016-08-12] MEDS ORDERED: ATORVASTATIN CA10 M1 PO (19:37)
--- NOTE | 2016-08-12 19:37 | NUR ---
REPORT CALLED TO YAHIR ON ICU. TRANSPORT BOOKED.
[2016-08-12] MEDS ORDERED: OLANZAPINE20 M1 PO (19:38)
[2016-08-12 20:19] VITALS: BP 124/86
--- NOTE | 2016-08-12 21:23 | Admission Certification ---
Admission Certification Certification Statement - As attending physician, I certify that at the time of - admission, based on clinical presentation, severity of - symptoms, need for further diagnostic testing and - therapeutic interventions, and risk of adverse outcomes - without in-hospital treatment, in my clinical assessment, - this patient requires an acute hospital stay for a minimum - of two nights or longer. I have also considered psychsocial - factors such as support system, advanced age, financial - issues, cognitive issues, and failed out-patient treatments, - past re-admission history, safety of patient, and lack of - compliance as applicable. Specific rationale supporting this admission is: Patient admitted with presumed intentional overdose of cyclobenzaprine (Flexeril ) with total of 400 mg taken. Tox screen also positive for benzos and cannabinoids. Needs ICU admission and close neuro/VS monitoring. Cardiac monitoring for arrythmia.
--- NOTE | 2016-08-12 21:45 | NUR ---
REC'D REPORT FROM DEAN FRAZIER IN ER. DX: ETOH WD/SI. 2014 ARRIVED IN THE ICU TO ROOM 104 VIA STRETCHER ACCOMPANIED BY DEAN FRAZIER & SAWYER PLATA. TRANSFERRED LASHELL ONTO BED. HOOKED UP ON THE MONITOR. SR W/HR 87, SBP 130/MANUAL & AUTO/124. ON 4LNC POX >97% & TITRATED DOWN TO 2LNC POX 96%, LS CLEAR THROUGHOUT THE LOBES. DEAN FRAZIER STATED PT JUST VOIDED IN THE ER PRIOR TO COMING TO THE ICU. PT STATED STILL HAS SI FEELINGS & THIS IS HIS 16TH ATTEMPT FOR SI. SITTER AT BEDSIDE AT ALL TIMES. PT IS DROWSEY BUT AROUSABLE, HAD PERIODS OF CLARITY FOR SHORT WHILE ABLE TO ANSWER SOME QUESTIONS W/THE HX/ASSESSMENTS. NO FAMILY INVOLVEMENT STATED BY PT ONLY HAS A FRIEND NAMED BRIGIDA A CONTACT. PT WAS HALLUCINATING & HAD SLURRED/SLOWED SPEECH. OFF ON THE DATE KNOWS THE MONTH/YEAR. ORIENTED TO NAME/PLACE. TREMORS EVIDENT WHEN ARMS ARE HELD UP. CIWA 15. INFORMED DR. GAITAN RE. PT'S STATUS & DON'T GIVE ATIVAN TOO LETHARGIC. CONT TO MONITOR CLOSELY.
[2016-08-12 22:00] VITALS: BP 115/71
[2016-08-13] VITALS (10 sets, daily range): BP systolic 105–151; BP diastolic 69–100
--- NOTE | 2016-08-13 04:36 | NUR ---
SPOKE TO POISON CONTROL @0300. UPDATED ON PT'S STATUS. PT LETHARGIC BUT EASILY AROUSABLE. CIWA SCORE 0-13. INFORMED DR. SADLER RE. PT'S MENTAL STATUS & CIWA SCORE. NO ATIVAN GIVEN. HR 80'S & SBP 100-130'S. STILL TREMULLOUS, ORIENTED X2 STILL WANTS TO HARM HIMSELF. REASSURANCE GIVEN & SITTER AT HIS BEDSIDE @ALL TIMES. CONT TO MONITOR.
[2016-08-13 05:09] LABS: ABSOLUTE BASOPHIL COUNT 0 /CUMM (0.0-0.2); ABSOLUTE EOSINOPHIL COUNT 0.2 /CUMM (0.0-0.7); ABSOLUTE GRANULOCYTE CT 1.8 /CUMM (1.4-6.5); ABSOLUTE LYMPH COUNT 2.3 /CUMM (1.2-3.4); ABSOLUTE MONOCYTE COUNT 0.4 /CUMM (0.10-0.60); BASOPHIL % 0.6 % (0.0-2.0); EOSINOPHIL % 3.2 % (0-5); GRANULOCYTE % 38.8 % (42.2-75.2); HEMATOCRIT 49.3 % (42-52); MEAN CORPUSCULAR HGB CONC 34.6 G/DL (33.0-37.0); MEAN CORPUSCULAR VOLUME 92.5 FL (80.0-94.0); MEAN PLATELET VOLUME 7.1 FL (7.4-10.4); PLATELET COUNT 205 /CUMM (130-400); RED BLOOD CELL CT 5.33 /CUMM (4.70-6.10); WHITE BLOOD CELL COUNT 4.8 /CUMM (4.8-10.8)
--- NOTE | 2016-08-13 05:14 | NUR ---
PT MORE AWAKE. REQUESTING SOMETHING TO DRINK. DR. SADLER STATES HE CAN TAKE SIPS TOLERATED. TOOK SOME SIPS & TOLERATED. S/B DR. SADLER AT BEDSIDE. PT REQUESTED SOMETHING TO RELAX HIM BECAUSE HE'S SHAKY. ATIVAN 1MG IVP GIVEN FOR A CIWA SCORE 13. AFTER FEW MINUTES LATER C/O NAUSEA. INFORM DR. POLANCO RE. PT'S STATUS. CHECK QTC 425. ALRIGHT TO GIVE ZOFRAN. ORDERS GIVEN. ZOFRAN IVP GIVEN SEE EMAR. IVF @125ML/HR INFUSING WELL TO RHAND. CONT TO MONITOR.
[2016-08-13 09:15] LABS: LITHIUM < 0.2 mmol/L (0.6-1.2)
--- NOTE | 2016-08-13 09:18 | PN- Housestaff ---
See Addendum Subjective Follow-up For: Substance overdose as a suicide attempt Subjective: Patient was seen and examined, patient is drowsy but arousable to tactile stimuli, he answer's questions and immediately go back to sleep. Review of Systems Constitutional: Denies: chills, fever. Cardiovascular: Denies: chest pain, syncope. Respiratory: Reports: short of breath (very mild). Denies: cough, wheezing. Gastrointestinal: Reports: nausea. Denies: abdominal pain, vomiting. Objective Last 24 Hrs of Vital Signs/I&O Vital Signs Date Time Temp Pulse Resp B/P Pulse O2 O2 Flow FiO2 Ox Delivery Rate 08/13 08 97.5 80 18 118/70 95 Nasal 3.0L Cannula 08/13 0800 96 Nasal 3.0L Cannula 08/13 0600 79 21 106/76 08/13 0400 97.3 75 22 122/74 08/13 0400 96 Nasal 3.0L Cannula 08/13 0200 77 19 118/78 08/13 0000 97.7 84 27 130/100 08/13 0000 97.7 84 27 130/100 97 Nasal 2.0L Cannula 08/13 0000 97 Nasal 2.0L Cannula 08/12 2200 82 15 115/71 08/12 2147 Nasal 2.0L Cannula 08/12 2027 97 Nasal 2.0L Cannula 08/12 2018 97.9 81 23 124/86 08/12 1914 96.7 97 16 125/75 08/12 191 96.5 97 16 125/75 97 Nasal 6.0L Cannula 08/12 1810 96.5 91 16 125/66 08/12 1810 96.5 92 16 125/66 97 Nasal 6.0L Cannula 08/12 1659 97.1 95 14 142/83 08/12 1657 97.3 93 14 142/83 96 Nasal 6.0L Cannula 08/12 1622 93 Nasal 6.0L Cannula 08/12 1611 15 93 Nasal 6.0L Cannula 08/12 1610 98.3 90 15 143/83 08/12 1610 98.3 90 15 143/83 89 Room Air 08/12 1505 96.7 117 18 153/99 95 Room Air Intake & Output 08/13 1600 08/13 0800 08/13 0000 Intake Total 993 384 Output Total 600 600 Balance 393 -216 Intake, IV 873 384 Intake, Oral 120 0 Number 0 0 Bowel Movements Output, Urine 600 600 Patient 113.398 kg 109.883 kg Weight Physical Exam General Appearance: Alert, oriented to person and place but not time, drowsy & sleepy Skin: No Rashes HEENT: Atraumatic, PERRLA, EOMI, Mucous Membr. moist/pink Neck: No JVD Cardiovascular: Regular Rate, Normal S1, Normal S2, No Murmurs Lungs: Clear to Auscultation, Normal Air Movement Abdomen: Soft, No Tenderness Neurological: Normal Speech, drowsy and sleepy Extremities: No Edema Current Medications: Current Medications Sig/Minerva Start time Last Medication Dose Route Stop Time Status Admin Cyanocobalamin/ 1 BAG DAILY 08/13 1000 AC Thiamine/Pyridoxine IV Dextrose/Water 1,000 ML Cyanocobalamin/ 1 BAG DAILY 08/12 194 DC Thiamine/Pyridoxine IV Dextrose/Water 1,000 ML Dextrose/Sodium 1,000 ML .[id number] 08/12 194 DC Chloride IV Haloperidol 2 MG ONCE ONE 08/13 0900 DC PO 08/13 0901 Heparin Sodium 5,000 UNIT Q8 08/12 2200 08/13 (Porcine) SC 0504 Lorazepam 2 MG Q6 08/13 1200 AC PO Lorazepam 2 MG Q6 08/13 0812 DC PO Lorazepam 0 Q1P PRN 08/12 1945 AC 08/13 IV 0817 Lorazepam 0 .STK-MED ONE 08/12 1545 DC .ROUTE Lorazepam 1 MG ONCE ONE 08/12 1530 DC IV 08/12 1531 Magnesium Sulfate 1 GM ONCE ONE 08/12 2045 DC 08/12 Dextrose/Water 100 ML IV 08/13 0044 2230 Olanzapine 10 MG 2200 08/13 2200 AC PO Ondansetron HCl 4 MG Q6P PRN 08/13 0515 AC 08/13 IV 0514 Patient Medication 1 UNIT ONE NR 08/13 0830 Teaching ED 08/13 1430 Potassium Chloride 20 MEQ Q8H 08/[address] 08/13 Dextrose/Sodium 1,000 ML IV 0447 Chloride Last 24 Hrs of Lab/Dieter Results Last 24 Hrs of Labs/Mics: Laboratory Tests 08/13/16 0405: Anion Gap 8, Estimated GFR > 60, Glucose 87, Calcium 9.1, Phosphorus 3.6, Magnesium 2.2, Total Bilirubin 0.9, AST 15 L, ALT 32, Albumin 4.0, CBC w Diff NO MAN DIFF REQ, RBC 5.33, MCV 92.5, MCH 32.0 H, RDW 13.0, MPV 7.1 L, Gran % 38.8 L, Lymphocytes % 48.0, Monocytes % 9.4 H, Eosinophils % 3.2, Basophils % 0.6, Absolute Granulocytes 1.8, Absolute Lymphocytes 2.3, Absolute Monocytes 0.4 , Absolute Eosinophils 0.2, Absolute Basophils 0, PUBS MCHC 34.6, Valproic Acid 26.7 L, [place] < 0.2 L 08/12/162044: P-50 (Temp Corrected) N, Oxyhemoglobin 95.6, Carboxyhemoglobin 5.7 *H, Methemoglobin 0.2, Calc Total Hemoglobin 17.0, Oxygen Content 21.5, O2 Concentration % 2L, Temperature 98.6, O2 Delivery Method N/C, Phlebotomy Draw Site RIGHT BRACHIAL 08/12/162044: pH 7.43, pCO2 39, pO2 77 L, HCO3 25, ABG O2 Sat (Measured) 90.0 L, P-50 (Temp Corrected) N, Carboxyhemoglobin 5.7 *H, O2 Concentration % 2L, Temperature 98.6, O2 Delivery Method N/C, Phlebotomy Draw Site RIGHT BRACHIAL 08/12/16 1600: CBC w Diff NO MAN DIFF REQ, RBC 5.32, MCV 91.5, MCH 32.0 H, RDW 13.0, MPV 7.0 L, Gran % 44.1, Lymphocytes % 43.7, Monocytes % 10.2 H, Eosinophils % 1.7, Basophils % 0.3, Absolute Granulocytes 1.6, Absolute Lymphocytes 1.6, Absolute Monocytes 0.4, Absolute Eosinophils 0.1, Absolute Basophils 0, PUBS MCHC 35.0, Urine Opiates Screen < 100.00, Methadone Screen < 40, Barbiturate Screen < 60, Ur Phencyclidine Scrn < 6.00, Amphetamines Screen < 100, U Benzodiazepines Scrn > 800 H, Urine Cocaine Screen < 50, Urine Cannabis Screen > 80.00 H 08/12/16 1510: Anion Gap 9, Estimated GFR > 60, BUN/Creatinine Ratio 11.8, Glucose 81, Calcium 9.5, Phosphorus 3.1, Magnesium 1.7, Total Bilirubin 0.9, AST 17, ALT 28, Alkaline Phosphatase 60, Troponin I < 0.01, Total Protein 7.3, Albumin 4.3, Globulin 3.0, Albumin/Globulin Ratio 1.4, Amylase < 30 L, Lipase 46, Salicylates < 1.0, Acetaminophen < 10.0 L, Serum Alcohol < 10.0 Microbiology 08/12 2029 UPPER RESP: Surveillance Culture - RECD 08/12 2029 GI: Surveillance Culture - RECD Assessment/Plan Assessment: #Overdose Cyclobenzaprine patient admitted taking 400 mg of cyclobenzaprine on arrival in ED. Clinical course deteriorated in ED with progressive somnolence. EKG shows NL QRS, no arrhythmia noted. * We will continue cardiac and respiratory monitoring ICU. If patient continued to be stable he will be transferred to general medical. * First ABG result was 7.43///. * Seizure precautions. * Watch for aspiration.. #Alcohol Dependence/Abuse Recent detox noted and patient admitted to drinking some alcohol. Blood level negative at time of presentation. Concern regarding giving benzos (Ativan) in the presence of current sedation. He already received thiamine, MVI, folate, etc as per protocol. * Psych was consulted we'll follow up recommendations. #Bipolar/Anxiety/Depression/Suicide Attempt Pt has significant psychiatric history with multiple prior suicidal attempts. Has been on SSRI (paroxetine), Olanzapine, Trazodone, Divalproex & gabapentin. Patient stated he had not been taking psych meds. * will continue 1:1 sitter for suicidality * We will start patient on olanzapine 10 mg daily at bed time. the plan is to get him back to his home does of 20mg daily. * Patient received 2 mg of haloperidol oral once as per psych until olanzapine starts tonight. * Trazodone, gabapentin and Depakote may be held for now, until the patient clears. * Will follow any further psych consultation. #Hypertension patient normally on Lisinopril. To avoid hypotension associated with cyclobenzaprine overdose. * we'll hold Lisinopril/antihypertensive at present. #Hyperlipidemia on Atorvastatin. * Hold medication at present. #Diet * Regular diet #DVT prophylaxis * Subcutaneous heparin #CODE STATUS * FC Problem List: 1. ETOH abuse 2. Depression 3. Suicide attempt 4. Suicide ideation 5. Overdose of muscle relaxant Pain Ratin Pain Location: NA Pain Goal: Remain pain free Pain Plan: The assessment and plan Tomorrow's Labs & Rationales: CBC and BEP
--- NOTE | 2016-08-13 10:41 | Cons- Psychiatry ---
See Addendum Psychiatric Consult Date of Consult: 08/13/16 Reason for Consult: Suicide attempt" History of Present Illness: 35 M walked into the ED on 08/12/16 stating that he took 400 mg Flexeril in a suicide attempt. Last drink 08/11/16; the patient usually drinks 1/4 gallon of vodka daily since release from his last detox at [facility] on 05/31/16. Old girlfriend gave him a lorazepam daily for several days over a week ago for insomnia, but denies taking any since, despite positive utox. Cannabis smoked the night before presentation, but no other use recently. Patient reports trying as much as 300 mg trazodone for insomnia, but is currently prescribed 100 mg at bedtime. The patient has had multiple hospitalizations on acute inpatient psychiatry. He reports he is not allowed on [facility] anymore, and would prefer to go to [facility] Allergies: Coded Allergies: fluoxetine (Intermediate, ANXIETY 06/24/16) bupropion (Mild, Increase in afshan, reported on a previous admission 08/13/16) Current Medications: Current Medications Sig/Minerva Start time Last Medication Dose Route Stop Time Status Admin Cyanocobalamin/ 1 BAG DAILY 08/13 1000 AC 08/13 Thiamine/Pyridoxine IV 1001 Dextrose/Water 1,000 ML Cyanocobalamin/ 1 BAG DAILY 08/12 194 DC Thiamine/Pyridoxine IV Dextrose/Water 1,000 ML Dextrose/Sodium 1,000 ML .[id number] 08/12 194 DC Chloride IV Haloperidol 2 MG ONCE ONE 08/13 0900 DC 08/13 PO 08/13 0901 1003 Heparin Sodium 5,000 UNIT Q8 08/12 2200 AC 08/13 (Porcine) SC 0504 Lorazepam 2 MG Q6 08/13 1200 AC PO Lorazepam 2 MG Q6 08/13 0812 DC PO Lorazepam 0 Q1P PRN 08/12 1945 AC 08/13 IV 0817 Lorazepam 0 .STK-MED ONE 08/12 1545 DC .ROUTE Lorazepam 1 MG ONCE ONE 08/12 1530 DC IV 08/12 1531 Magnesium Sulfate 1 GM ONCE ONE 08/12 2045 DC 08/12 Dextrose/Water 100 ML IV 08/13 0044 2230 Olanzapine 10 MG 2200 08/13 2200 AC PO Ondansetron HCl 4 MG Q6P PRN 08/13 0515 AC 08/13 IV 0514 Patient Medication 1 UNIT ONE NR 08/13 0830 Teaching ED 08/13 1430 Potassium Chloride 20 MEQ Q8H 08/12 2014 DC 08/13 Dextrose/Sodium 1,000 ML IV 0447 Chloride Past History Past Medical History Neurological: delerium tremens, restless leg syndrome, ETOH W/D SEIZURES EENT: NONE Cardiovascular: hypertension, hyperlipidemia Respiratory: NONE Gastrointestinal: NONE Hepatic: NONE Renal: NONE Musculoskeletal: LEFT KNEE MENISCAL TEAR Psychiatric: anxiety, bipolar disease, depression, substance abuse, S.I. BIPOLAR DISORDER OVERDOSE suicide attempt X 15 events Endocrine: NONE Blood Disorders: NONE Cancer(s): NONE EXTRA HAND/Reproductive: NONE Past Surgical History Surgical History: hernia repair-umbilical Psychosocial History Strengths/Capabilities: Pt is able to articulate his wants and needs. Pt has insight into his mental health and substance abuse. Pt has had periods of sobriety, stability, and treatment. Physical Limitations (Interventions): None identified. Psychiatric Treatment History Psych Treatment Psychiatric Treatment Yes Inpatient Treatment Yes Outpatient Treatment Yes Location of Treatment Many: , [facility], [facility] Diagnosis: Bipolar D/O Polysubstance Abuse Risk Factors: high anxiety/distress, history of suicide atmpts, SA/MH hospitalized, substance abuse, poor impulse control, lives alone, male, limited support Substance Use/Abuse History Drug Use/Abuse Substances Used/Abused Yes Substance Abuse Treatment Substance Abuse Treatment Past Substance Abuse [place] Yes Inpatient Treatment Yes Outpatient Treatment Yes Location of Treatment Many presentations Assessment/Plan Mental Status Orientation: Person, Place, Situation Mental Status Exam: Lying in bed, arousable. A+OX4. Endorses visual and auditory hallucinations, denies tactile hallucinations, presents no amari delusions. Depression symptoms 8/10, anxiety 8/10; 10/10 is the most severe. Asked if he is suicidal, he states, "No, the bag with my medicine in it is locked up." He reports that ingestion of 400 mg Flexeril was intended to end his life. "I need to do something impulsive. I though 400 mg of muscle relaxer would kill me, but I guess not." He reports he feels safe in his apartment in [place], "but, I'm alone a lot." Lab Results: Laboratory Tests 08/135 2044 Blood Gas P-50 (Temp Corrected) N Oxyhemoglobin (94 - 100 %) 95.6 Carboxyhemoglobin (1.5 - 5.0 %) 5.7 *H Methemoglobin (0.0 - 3.0 %) 0.2 Calc Total Hemoglobin (13.5 - 18.0 %) 17.0 Oxygen Content (15 - 23 VOL%) 21.5 O2 Concentration % 2L Temperature (97.0 - 100.0 FARH) 98.6 O2 Delivery Method N/C Chemistry Sodium (137 - 145 mmol/L) 138 Potassium (3.5 - 5.1 mmol/L) 4.7 Chloride (98 - 107 mmol/L) 104 Carbon Dioxide (22 - 30 mmol/L) 27 Anion Gap (5 - 16) 8 BUN (9 - 20 mg/dL) 12 Creatinine (0.7 - 1.2 mg/dL) 1.1 Estimated GFR (>60 ml/min) > 60 Glucose (65 - 99 mg/dL) 87 Calcium (8.4 - 10.2 mg/dL) 9.1 Phosphorus (2.5 - 4.5 mg/dL) 3.6 Magnesium (1.6 - 2.3 mg/dL) 2.2 Total Bilirubin (0.2 - 1.3 mg/dL) 0.9 AST (17 - 59 U/L) 15 L ALT (21 - 72 U/L) 32 Albumin (3.5 - 5.0 g/dL) 4.0 Hematology CBC w Diff NO MAN DIFF REQ WBC (4.8 - 10.8 /CUMM) 4.8 RBC (4.70 - 6.10 /CUMM) 5.33 Hgb (14.0 - 18.0 G/DL) 17.0 Hct (42 - 52 %) 49.3 MCV (80.0 - 94.0 FL) 92.5 MCH (27.0 - 31.0 PG) 32.0 H RDW (11.5 - 14.5 %) 13.0 Plt Count (130 - 400 /CUMM) 205 MPV (7.4 - 10.4 FL) 7.1 L Gran % (42.2 - 75.2 %) 38.8 L Lymphocytes % (20.5 - 51.1 %) 48.0 Monocytes % (1.7 - 9.3 %) 9.4 H Eosinophils % (0 - 5 %) 3.2 Basophils % (0.0 - 2.0 %) 0.6 Absolute Granulocytes (1.4 - 6.5 /CUMM) 1.8 Absolute Lymphocytes (1.2 - 3.4 /CUMM) 2.3 Absolute Monocytes (0.10 - 0.60 /CUMM) 0.4 Absolute Eosinophils (0.0 - 0.7 /CUMM) 0.2 Absolute Basophils (0.0 - 0.2 /CUMM) 0 PUBS MCHC (33.0 - 37.0 G/DL) 34.6 Miscellaneous Phlebotomy Draw Site RIGHT BRACHIAL Toxicology Valproic Acid (50 - 120 ug/mL) 26.7 L [place] (0.6 - 1.2 mmol/L) < 0.2 L 08/12 1600 Blood Gas pH (7.35 - 7.45 PH) 7.43 pCO2 (35 - 45 TORR) 39 pO2 (80 - 100 TORR) 77 L HCO3 (21 - 28 MEQ/L) 25 ABG O2 Sat (Measured) (>96.0 %) 90.0 L P-50 (Temp Corrected) N Carboxyhemoglobin (1.5 - 5.0 %) 5.7 *H O2 Concentration % 2L Temperature (97.0 - 100.0 FARH) 98.6 O2 Delivery Method N/C Hematology CBC w Diff NO MAN DIFF REQ WBC (4.8 - 10.8 /CUMM) 3.7 L RBC (4.70 - 6.10 /CUMM) 5.32 Hgb (14.0 - 18.0 G/DL) 17.0 Hct (42 - 52 %) 48.7 MCV (80.0 - 94.0 FL) 91.5 MCH (27.0 - 31.0 PG) 32.0 H RDW (11.5 - 14.5 %) 13.0 Plt Count (130 - 400 /CUMM) 207 MPV (7.4 - 10.4 FL) 7.0 L Gran % (42.2 - 75.2 %) 44.1 Lymphocytes % (20.5 - 51.1 %) 43.7 Monocytes % (1.7 - 9.3 %) 10.2 H Eosinophils % (0 - 5 %) 1.7 Basophils % (0.0 - 2.0 %) 0.3 Absolute Granulocytes (1.4 - 6.5 /CUMM) 1.6 Absolute Lymphocytes (1.2 - 3.4 /CUMM) 1.6 Absolute Monocytes (0.10 - 0.60 /CUMM) 0.4 Absolute Eosinophils (0.0 - 0.7 /CUMM) 0.1 Absolute Basophils (0.0 - 0.2 /CUMM) 0 PUBS MCHC (33.0 - 37.0 G/DL) 35.0 Miscellaneous Phlebotomy Draw Site RIGHT BRACHIAL Toxicology Urine Opiates Screen (>2000 NG/ML) < 100.00 Methadone Screen (>300 NG/ML) < 40 Barbiturate Screen (>200 NG/ML) < 60 Ur Phencyclidine Scrn (>25 NG/ML) < 6.00 Amphetamines Screen (>1000 NG/ML) < 100 U Benzodiazepines Scrn (>200 NG/ML) > 800 H Urine Cocaine Screen (>300 NG/ML) < 50 Urine Cannabis Screen (>50 NG/ML) > 80.00 H 08/12 1510 Chemistry Sodium (137 - 145 mmol/L) 137 Potassium (3.5 - 5.1 mmol/L) 4.0 Chloride (98 - 107 mmol/L) 101 Carbon Dioxide (22 - 30 mmol/L) 27 Anion Gap (5 - 16) 9 BUN (9 - 20 mg/dL) 13 Creatinine (0.7 - 1.2 mg/dL) 1.1 Estimated GFR (>60 ml/min) > 60 BUN/Creatinine Ratio (7 - 25 %) 11.8 Glucose (65 - 99 mg/dL) 81 Calcium (8.4 - 10.2 mg/dL) 9.5 Phosphorus (2.5 - 4.5 mg/dL) 3.1 Magnesium (1.6 - 2.3 mg/dL) 1.7 Total Bilirubin (0.2 - 1.3 mg/dL) 0.9 AST (17 - 59 U/L) 17 ALT (21 - 72 U/L) 28 Alkaline Phosphatase (< 127 U/L) 60 Troponin I (<0.11 ng/ml) < 0.01 Total Protein (6.3 - 8.2 g/dL) 7.3 Albumin (3.5 - 5.0 g/dL) 4.3 Globulin (1.9 - 4.2 gm/dL) 3.0 Albumin/Globulin Ratio (1.1 - 2.2 %) 1.4 Amylase (30 - 110 U/L) < 30 L Lipase (23 - 300 U/L) 46 Toxicology Salicylates (0 - 20.0 mg/dL) < 1.0 Acetaminophen (10.0 - 30.0 ug/mL) < 10.0 L Serum Alcohol (<10 MG/DL) < 10.0 Diffential Diagnosis: Bipolar disorder MARY BETH, MRE depressed Substance-induced mood disorder Alcohol use disorder, recurrent, severe Cannabis abuse Benzodiazepine abuse Impression: The patient had been most recently treated at [facility] in [place]. He states that they want him to go to a rehab (drug/alcohol). A signed release form is in the chart to speak with Dr. Crowley. We are awaiting confirmation of psychotropic meds from [facility]. Martínez reports that he takes: Depakote ER 1500 mg PO at bedtime Gabapentin 300 mg PO 3X/day Zyprexa/olanzapine 20 mg PO at bedtime Trazodone 100 mg PO at bedtime Paxil/paroxetine 10 mg PO daily (Has been taking this for 5 days) The patient is a risk to himself and should not leave the hospital AMA, or otherwise, until cleared by psychiatry. We expect that he will need acute inpatient psychiatry admission when medically clear. He states that he prefers to go to [facility]. He is endorsing hallucinations and has a history of delirium tremens. He has not taken his olanzapine for a few days, so we will start this at a lower dose, and titrate up after a few days, as needed. Provisional Treatment Plan: 1. Continue 1:1 sitter for suicidality and flight risk. 2. We will assume control of the ETOH Detox protocol. 3. Haldol 2 mg PO one-time. This can be repeated later this afternoon, possibly at a 1 mg dose, before the olanzapine starts tonight. 4. Olanzapine 10 mg PO at bedtime. 5. Valproic acid level. 08/13/16 26.7 6. [place] level (The patient has not been on this medication, but he may have had some left at home.) 08/13/16: <0.2 7. Trazodone, gabapentin and Depakote may be held for now, until the patient clears. 8. Continue current banana bag, but please restart daily thiamine 100 mg, folate 1 mg and MVI. We will continue to follow along with you. Kong Gomez APRN, Pager [phone]
[2016-08-14] VITALS (11 sets, daily range): BP systolic 120–140; BP diastolic 60–90
--- NOTE | 2016-08-14 00:16 | NUR ---
PATIENT ALERT.STOOD AT SIDE OF BED.DIAPHORETIC AND SHAKY. MONITOR SINUS RHYTHM AT RATE OF 96.BP STABLE.LUNG SOUNDS CLEAR.SCHEDULED DOSE OF 2 MG ATIVAN GIVEN.
[2016-08-14 05:56] LABS: ABSOLUTE BASOPHIL COUNT 0 /CUMM (0.0-0.2); ABSOLUTE EOSINOPHIL COUNT 0.1 /CUMM (0.0-0.7); ABSOLUTE GRANULOCYTE CT 2.2 /CUMM (1.4-6.5); ABSOLUTE LYMPH COUNT 1.9 /CUMM (1.2-3.4); ABSOLUTE MONOCYTE COUNT 0.4 /CUMM (0.10-0.60); BASOPHIL % 0.4 % (0.0-2.0); EOSINOPHIL % 2.8 % (0-5); HEMATOCRIT 47.9 % (42-52); MEAN CORPUSCULAR HGB 31.9 PG (27.0-31.0); MEAN CORPUSCULAR HGB CONC 34.6 G/DL (33.0-37.0); MEAN CORPUSCULAR VOLUME 92.1 FL (80.0-94.0); MEAN PLATELET VOLUME 6.9 FL (7.4-10.4); PLATELET COUNT 193 /CUMM (130-400); RBC DISTRIBUTION WIDTH 12.6 % (11.5-14.5); WHITE BLOOD CELL COUNT 4.7 /CUMM (4.8-10.8)
--- NOTE | 2016-08-14 07:34 | PN- Housestaff ---
See Addendum Subjective Follow-up For: Suicidal attempts Substance abuse Subjective: Patient was seen and examined at bedside today. He is laying on the bed watching TV however looks mildly anxious. Patient reported some hands tremor. He denies chest pain, palpitation, shortness breath, nausea, vomiting, weakness, numbness, or any seizure activity. Review of Systems Constitutional: Denies: chills, diaphoresis, fever, malaise, weakness. Objective Last 24 Hrs of Vital Signs/I&O Vital Signs Date Time Temp Pulse Resp B/P Pulse O2 O2 Flow FiO2 Ox Delivery Rate 08/14 1317 97.8 80 18 140/80 08/14 0800 97.8 87 18 120/60 08/14 0800 93 Room Air Room Air 08/14 0800 97.8 87 20 120/60 93 Room Air Room Air 08/14 0000 98.0 96 20 134/90 08/14 0000 98.0 96 20 134/80 93 Room Air 08/14 0000 93 Room Air 08/13 2200 97.5 81 28 133/75 08/13 2000 97.6 94 20 136/84 08/13 2000 95 Nasal 2.0L Cannula 08/13 1600 96 Nasal 3.0L Cannula 08/13 1600 99.1 83 24 130/80 96 Nasal 3.0L Cannula 08/13 1400 99.0 91 16 151/69 Intake & Output 08/14 1600 08/14 0800 08/14 0000 Intake Total 440 2870 Output Total 2600 Balance 440 270 Intake, IV 270 Intake, Oral 440 2600 Number 0 Bowel Movements Output, Urine 2600 Patient 113.058 kg Weight Physical Exam General Appearance: Alert, Oriented X3, Cooperative, No Acute Distress Skin: No Rashes HEENT: Atraumatic, PERRLA, EOMI Neck: Supple Cardiovascular: Regular Rate, Normal S1, Normal S2, No Murmurs Lungs: Clear to Auscultation, Normal Air Movement Abdomen: Normal Bowel Sounds, Soft, No Tenderness Neurological: Normal Speech Extremities: No Cyanosis, No Edema, b/l Upper ext tremor Current Medications: Current Medications Sig/Minerva Start time Last Medication Dose Route Stop Time Status Admin Cyanocobalamin/ 1 BAG DAILY 08/13 1000 DC 08/13 Thiamine/Pyridoxine IV 1001 Dextrose/Water 1,000 ML Divalproex Sodium 1,500 MG AT BEDTIME 08/13 2200 AC 08/13 PO 2131 Folic Acid 1 MG DAILY 08/14 1000 AC 08/14 PO 1119 Folic Acid 1 MG DAILY 08/13 1402 DC PO Heparin Sodium 5,000 UNIT Q8 08/12 2200 AC 08/14 (Porcine) SC 0539 Lorazepam 0.5 MG ONCE 08/18 0000 AC PO 08/18 0001 Lorazepam 0.5 MG Q6H 08/17 0000 AC PO 08/17 1801 Lorazepam 0.5 MG ONCE ONE 08/16 1800 AC PO 08/16 1801 Lorazepam 1 MG Q6H 08/16 0000 AC PO 08/16 1201 Lorazepam 1.5 MG Q12H 08/15 0600 AC PO 08/15 1801 Lorazepam 1 MG Q12H 08/15 0000 AC PO 08/15 1201 Lorazepam 1.5 MG Q6 08/14 0600 AC 08/14 PO 08/14 1801 1119 Lorazepam 2 MG Q6 08/13 1200 DC 08/13 PO 08/14 0001 2356 Lorazepam 2 MG Q2P PRN 08/13 1115 08/13 IV 1512 Lorazepam 1 MG Q2P PRN 08/13 1115 AC 08/13 IV 2031 Multivitamins 1 TAB DAILY 08/14 1000 AC 08/14 PO 1119 Multivitamins 1 TAB DAILY 08/13 1402 DC PO Nicotine 14 MG DAILY 08/13 1831 AC 08/14 TOP 1119 Olanzapine 10 MG 2200 08/13 2200 AC 08/13 PO 2131 Ondansetron HCl 4 MG Q6P PRN 08/13 0515 AC 08/13 IV 0514 Patient Medication 1 UNIT ONE NR 08/13 0830 OK Teaching ED 08/13 1430 Thiamine HCl 100 MG DAILY 08/14 1000 AC 08/14 PO 1119 Thiamine HCl 100 MG DAILY 08/13 1403 DC PO Trazodone HCl 100 MG AT BEDTIME NEED.. 08/14 1145 AC PO Last 24 Hrs of Lab/Dieter Results Last 24 Hrs of Labs/Mics: Laboratory Tests 08/14/16 0530: Anion Gap 8, Estimated GFR > 60, Glucose 83, Calcium 9.2, Phosphorus 3.3, Magnesium 2.0, Total Bilirubin 0.6, AST 14 L, ALT 27, Albumin 3.8, CBC w Diff NO MAN DIFF REQ, RBC 5.20, MCV 92.1, MCH 31.9 H, RDW 12.6, MPV 6.9 L, Gran % 47.0, Lymphocytes % 40.9, Monocytes % 8.9, Eosinophils % 2.8, Basophils % 0.4, Absolute Granulocytes 2.2, Absolute Lymphocytes 1.9, Absolute Monocytes 0.4, Absolute Eosinophils 0.1, Absolute Basophils 0, PUBS MCHC 34.6 Assessment/Plan Assessment: #Overdose Cyclobenzaprine as suicidal attempts patient admitted taking 400 mg of cyclobenzaprine on arrival in ED. Clinical course deteriorated in ED with progressive somnolence. EKG shows NL QRS, no arrhythmia noted. * We will continue cardiac and respiratory monitoring ICU. If patient continued to be stable he will be transferred to general medical. * will continue 1:1 sitter for suicidality * First ABG result was 7.43/39//. * Seizure precautions. * Watch for aspiration. #Alcohol Dependence/Abuse Recent detox noted and patient admitted to drinking some alcohol. Blood level negative at time of presentation. He already received thiamine, MVI, folate, etc as per protocol. * we'll continue ETOH Detox protocol. * we'll continue Ativan taper * Psych was consulted we'll follow up recommendations. #Bipolar/Anxiety/Depression/Suicide Attempt Pt has significant psychiatric history with multiple prior suicidal attempts. Has been on SSRI (paroxetine), Divalproex & gabapentin. Patient stated he had not been taking psych meds. * We will start patient on olanzapine 10 mg daily at bed time. per psych after 3 -4 days, may increase to olanzapine 20 mg PO at bedtime.( Hold for arrhythmia or QTc greater than 475 mS. ) * We will start trazodone 100 mg PO at bedtime as needed, for insomnia. * Continue Depakote ER 1500 mg PO at bedtime * We'll check valproic acid level after 3 doses, at trough. This lab draw will be before the evening dose on 08/16/2016. * Psych may consider re-starting gabapentin tomorrow. * Will follow any further psych consultation. #Hypertension patient normally on Lisinopril. To avoid hypotension associated with cyclobenzaprine overdose. * we'll hold Lisinopril/antihypertensive at present. #Hyperlipidemia on Atorvastatin. * Hold medication at present. #Diet * Regular diet #DVT prophylaxis * Subcutaneous heparin #CODE STATUS * FC Problem List: 1. Anxiety 2. Depression 3. Suicide attempt Pain Ratin Pain Location: na Pain Goal: Remain pain free Pain Plan: see A&P Tomorrow's Labs & Rationales: cbc and bep
--- NOTE | 2016-08-14 11:45 | PN- Psychiatry ---
Assessment/Plan Impression: Depakote ER 1500 mg PO at bedtime was restarted last night by staff. He will need a VPA level checked on after 3 doses, at trough, which I will order. I will start trazodone tonight for insomnia. We may consider re-starting gabapentin tomorrow. Suggestion: 1. I have ordered a valproic acid level after 3 doses, at trough. This lab draw will be before the evening dose on 08/16/2016. 2. Continue Depakote ER 1500 mg PO at bedtime. 3. Continue olanzapine 10 mg PO at bedtime. After 3-4 days, may increase to olanzapine 20 mg PO at bedtime. Hold for arrhythmia or QTc greater than 475 mS. 4. I will start trazodone 100 mg PO at bedtime as needed, for insomnia. 5. Continue ETOH Detox protocol. 6. Maintain 1:1 sitter, due to recent suicide attempt. 7. Please advise when the patient is medically clear, and we will re-evaluate him for admission to [facility]. He is not to leave the hospital AMA, or otherwise , until cleared by psychiatry. We will continue to follow. Yasmine Gomez APRN, Pager [phone] Subjective Subjective: Alert and oriented. Denies current SI/HI. Denies current AVTH; presents no amari delusions.
--- NOTE | 2016-08-14 11:54 | NUR ---
Referral received on 08/12/16 via electronic industrial order clerk. This patient is a 35 year old man, admitted to the hospital on 08/12/16 with a suicidal gesture via overdose on flexiril. Case discussed with psychiatry who reports patient will likely be transferred to inpatient psychiatry when medically stable. Please call if other social work needs arise.
--- NOTE | 2016-08-14 15:56 | NUR ---
PATIENT REQUESTING HIS PHONE WHICH WAS LOCKED UP IN [facility] IN THE ER. PATIENT'S BELONGINGS PULLED FROM [facility], CELL PHONE REMOVED AND GIVEN TO PATIENT, AND OTHER BELONGINGS REACCOUNTED FOR (WALLET, KEYS, $.11, AND TWO LIGHTERS). PATIENT SIGNED APPROPRIATE SHEET AND BELONGINGS SEALED/RETURNED TO [facility].
--- NOTE | 2016-08-14 20:44 | NUR ---
PATIENT REPORTS ANXIETY AND FEELING LIKE HE IS CHEWING ON THE SIDE OF HIS MOUTH OR TALKING OUT OF THE SIDE OF HIS MOUTH.NO CHANGE IN SPEECH CLARITY. MOVES ALL EXTREMITIES WITH EQUAL STRENGTH.ATIVAN 1 MG GIVEN ACCORDING TO CIWA PROTOCOL.
[2016-08-15] VITALS: BP 110/90; BP 152/100
--- NOTE | 2016-08-15 | NUR ---
PATIENT PREPARED FOR TRANSFER TO [facility] ROOM 206 WITH SITTER. PATIENT REMAINS ALERT AND ORIENTED.CO-OPERATIVE.TRANSFER VIA W/C
[2016-08-15 02:00] VITALS: BP 110/72
--- NOTE | 2016-08-15 06:56 | NUR ---
PT TRANSFERRED TO 206, ARRIVING ON FLOOR APPX [id number]. PT A&O, COOPERATIVE. VSS. SITTER IN ROOM. PT RESTING COMFORTABLY. WILL CONTINUE TO MONITOR
[2016-08-15 07:58] VITALS: BP 118/64
[2016-08-15 12:00] VITALS: BP 136/78
--- NOTE | 2016-08-15 12:54 | PN- Psychiatry ---
See Addendum Assessment/Plan Impression: Identifying Info: 35-year-old single male presents to [facility] emergency department on 08/12/2016 status post Flexeril overdose. Observed on the critical care unit now on 2 [address] A. SUBJECTIVE "Last night I heard people's voices." Patient continues to express wish to go to [facility]. Brief ROS Gait: Not observed, denies issues Sleep: Adequate Appetite: Adequate OBJECTIVE Mental Status Exam Presentation/Appearance: Calm, Cooperative with evaluation. Hospital garb. Interviewed in bed Orientation: 4 Sensorium: Awake and alert Eye contact: Appropriate Affect: Somewhat blunted but congruent with stated mood Mood: Depressed Depression: Endorses Anxiety: Endorses Thought Content: - Endorses intermittent suicidal ideation denies current plan, recent overdose attempt. - Endorses auditory hallucinations of voices of people he knew, denies they're command in nature - Denies HI, VH, PI. - Denies Hopeless/Helpless Thoughts Thought Process: Linear and goal-directed Speech: Normal tone and rate Judgment: Poor Insight: Fair, patient understands need for treatment Cognition: Memory: Endorses short-term deficits related to recent ingestion Attention/Concentration: Grossly intact ASSESSMENT 35-year-old male presents to Hospital status post Flexeril ingestion and continues to endorse suicidal ideation. His no longer allowed on CPS and will require inpatient hospitalization at another facility. Differential diagnosis F31.9 Unspecified Bipolar and Related Disorder F10.20 Alcohol Use Disorder, severe F11.20 Opioid Use Disorder F14.20 Stimulant Use Disorder-Cocaine Rule out unspecified personality disorder Suggestion: 1. Bed search started, and awaiting reply from [facility], [place], and [place]. Patient is not to be admitted to [facility]. 2. Please continue sitter patient to be placed on Physicians Emergency Certificate prior to transport to [facility]. 3. Continue Ativan as currently ordered. Continue vitamin supplementation. 4. Continue psychotropic medications as currently ordered. Thank you for including psychiatry in this case we will continue to follow. Dmitri Li APRN, pager [phone] Subjective Subjective: .
[2016-08-15] MEDS ORDERED: OLANZAPINE10 M1 PO (14:11)
[2016-08-15] MEDS ORDERED: FOLIC ACID1 M1 PO (14:11)
[2016-08-15] MEDS ORDERED: SENNA PLUS TAB1 EACH PO (14:11)
[2016-08-15] MEDS ORDERED: ONE DAILY MULT1 EAC2 PO (14:11)
--- NOTE | 2016-08-15 14:13 | Patient Discharge Instructions ---
Discharge Instructions General Discharge Information You were seen/treated for: Suicide attempt with Overdoses cyclobenzaprine Alcohol abuse Polysubstance abuse Special Instructions: -Please follow-up with your primary care provider within 7 days after discharge. -Please follow-up with your psychiatrist 14 days after discharge -We have made changes to your home medications, please read the instructions carefully. -Please come back to the hospital if your symptoms got worse. Diet Recommended Diet: Heart Healthy Activity Full Activity/No Limits: Yes (as tolerated) Acute Coronary Syndrome Inclusion Criteria At DC or during hospital stay patient has or had the following: ACS DIAGNOSIS No Discharge Core Measures Meds if any: Prescribed or Continued at Discharge Meds if any: NOT Prescribed or Continued at Discharge Congestive Heart Failure Inclusion Criteria At DC or during hospital stay patient has or had the following: CHF DIAGNOSIS No Discharge Core Measures Meds if any: Prescribed or Continued at Discharge Meds if any: NOT Prescribed or Continued at Discharge Cerebrovascular accident Inclusion Criteria At DC or during hospital stay patient has or had the following: CVA/TIA Diagnosis No Discharge Core Measures Meds if any: Prescribed or Continued at Discharge Meds if any: NOT Prescribed or Continued at Discharge Venous thromboembolism Inclusion Criteria VTE Diagnosis No VTE Type NONE VTE Confirmed by (Test) NONE Discharge Core Measures - Per Current guidelines, there needs to be overlap - treatment for the first 5 days of Warfarin therapy. - If discharged on Warfarin prior to 5 days of - overlap therapy, the patient will need to be - assessed for post discharge needs including - *Post discharge parental anticoagulation - *Warfarin and/or parental anticoagulation education - *Follow up date to check INR post discharge At least 5 days overlap therapy as Inpatient No Meds if any: Prescribed or Continued at Discharge Note: Overlap Therapy is Warfarin and Anticoagulant Meds if any: NOT Prescribed or Continued at Discharge
--- NOTE | 2016-08-15 14:18 | Discharge Summary ---
Visit Information Visit Dates Admission Date: 08/12/16 Discharge Date: 08/15/16 Hospital Course Course Attending Physician: GONZALO PRESTON MD Primary Care Physician: ANA LILIA PRIETO,[facility] Course: 35-year-old male came with of toxic ingestion after a suicidal attempt. Patient was obtundended and collateral information was obtained from ED records. patient reportedly walked into the ER stating he took "400 mg of Flexeril "in an attempt to "kill himself ". At time of initial evaluation he reportedly had suicidal ideation and denied any homicidal ideation. He was mimimally rousable to verbal and tactile stimuli. PMHx: EtOH abuse/dependence, EtOH withdrawal seizures, Delerium Tremens, Suicidial Ideation with "40+" attempts, Bipolar Disorder, Anxiety, Depression, Hypertension, Hyperlipidemia Vital Signs Date Time Temp Pulse Resp B/P Pulse O2 O2 Flow FiO2 Ox Delivery Rate 08/12 1914 96.7 97 16 125/75 08/12 1914 96.5 97 16 125/75 97 Nasal 6.0L Cannula 08/12 1810 96.5 91 16 125/66 08/12 1810 96.5 92 16 125/66 97 Nasal 6.0L Cannula 08/12 1659 97.1 95 14 142/83 08/12 1657 97.3 93 14 142/83 96 Nasal 6.0L Cannula 08/12 1622 93 Nasal 6.0L Cannula 08/12 1611 15 93 Nasal 6.0L Cannula 08/12 1610 98.3 90 15 143/83 08/12 1610 98.3 90 15 143/83 89 Room Air 08/12 1505 96.7 117 18 153/99 95 Room Air Physical Exam General Appearance Mild Distress Skin No Rashes, No Breakdown, No Significant Lesion HEENT Atraumatic, Mucous Membr. moist/pink, Pupils fixed and nonreactive Neck Supple, No LAD Cardiovascular Regular Rate, Normal S1, Normal S2, No Murmurs Lungs Clear to Auscultation, Normal Air Movement Abdomen Normal Bowel Sounds, Soft, No Hepatospenomegaly, No Masses, mild epigastric tenderness Neurological Lethargic/Somnolent, Pupils nonreactive Extremities No Clubbing, No Cyanosis, No Edema, Normal Pulses, No Tenderness/ Swelling Vascular Normal Pulses, Pulses Symmetrical Laboratory Tests 08/12/16 1600: CBC w Diff NO MAN DIFF REQ, RBC 5.32, MCV 91.5, MCH 32.0 H, RDW 13.0, MPV 7.0 L, Gran % 44.1, Lymphocytes % 43.7, Monocytes % 10.2 H, Eosinophils % 1.7, Basophils % 0.3, Absolute Granulocytes 1.6, Absolute Lymphocytes 1.6, Absolute Monocytes 0.4, Absolute Eosinophils 0.1, Absolute Basophils 0, PUBS MCHC 35.0, Urine Opiates Screen < 100.00, Methadone Screen < 40, Barbiturate Screen < 60, Ur Phencyclidine Scrn < 6.00, Amphetamines Screen < 100, U Benzodiazepines Scrn > 800 H, Urine Cocaine Screen < 50, Urine Cannabis Screen > 80.00 H 08/12/16 1510: Anion Gap 9, Estimated GFR > 60, BUN/Creatinine Ratio 11.8, Glucose 81, Calcium 9.5, Total Bilirubin 0.9, AST 17, ALT 28, Alkaline Phosphatase 60, Troponin I < 0.01, Total Protein 7.3, Albumin 4.3, Globulin 3.0, Albumin/Globulin Ratio 1.4, Amylase Pending, Lipase Pending, Salicylates < 1.0, Acetaminophen < 10.0 L, Serum Alcohol < 10.0 Patient was admitted to the ICU for closer monitoring and respiratory support and eventually transferred to General Medicine floor. These medical conditions were obseverd and treated: #Overdose Cyclobenzaprine as suicidal attempts Initially patient was put on gentle IV hydration. No EKG changes. NO Hemodynamic instability. Patient was monitored about 48 hours in ICU and his mental condition improved significantly and he became completely alert and oriented. He subsequently was transferred to general medicine floor before getting transferred out of the hospital.CBC,BEP were unremarkable. #Alcohol Dependence/Abuse Patient was put on ativan for CIWA protocol and received thiamine, MVI, folate per protocol. Ativan was gradually been tapered. He was discharged on 1 mg PO Ativan every 6 hours with gradual taper within couple of days. #Bipolar/Anxiety/Depression/Suicide Attempt patient was put on 1-1 sitter.Pt has significant psychiatric history with multiple prior suicidal attempts. He has been on SSRI (paroxetine), Divalproex & gabapentin. Patient stated he had not been taking psych meds. Per psychiatry we restarted his olanzapine 10 mg daily, trazodone 100 mg at bedtime and Depakote ER 1500 mg PO at bedtime. Valproic acid level should be checked after 3 doses on 08/16/2016. Patient will be transferred to another inpatient psychiatric facility and he should follow-up with a psychiatrist after discharge. #Hypertension patient at home was on Lisinopril which was held initially during the hospitalization(concerning any interaction with cyclobenzaprine overdose) and we restarted lisinopril and upon discharge. Patient blood pressure was stable during the hospitalization. Allergies: Coded Allergies: fluoxetine (Intermediate, ANXIETY 06/24/16) bupropion (Mild, Increase in afshan, reported on a previous admission 08/13/16) Pertinent Lab Results: Laboratory Tests 08/14 0530 Chemistry Sodium (137 - 145 mmol/L) 139 Potassium (3.5 - 5.1 mmol/L) 4.7 Chloride (98 - 107 mmol/L) 105 Carbon Dioxide (22 - 30 mmol/L) 25 Anion Gap (5 - 16) 8 BUN (9 - 20 mg/dL) 13 Creatinine (0.7 - 1.2 mg/dL) 1.1 Estimated GFR (>60 ml/min) > 60 Glucose (65 - 99 mg/dL) 83 Calcium (8.4 - 10.2 mg/dL) 9.2 Phosphorus (2.5 - 4.5 mg/dL) 3.3 Magnesium (1.6 - 2.3 mg/dL) 2.0 Total Bilirubin (0.2 - 1.3 mg/dL) 0.6 AST (17 - 59 U/L) 14 L ALT (21 - 72 U/L) 27 Albumin (3.5 - 5.0 g/dL) 3.8 Hematology CBC w Diff NO MAN DIFF REQ WBC (4.8 - 10.8 /CUMM) 4.7 L RBC (4.70 - 6.10 /CUMM) 5.20 Hgb (14.0 - 18.0 G/DL) 16.6 Hct (42 - 52 %) 47.9 MCV (80.0 - 94.0 FL) 92.1 MCH (27.0 - 31.0 PG) 31.9 H RDW (11.5 - 14.5 %) 12.6 Plt Count (130 - 400 /CUMM) 193 MPV (7.4 - 10.4 FL) 6.9 L Gran % (42.2 - 75.2 %) 47.0 Lymphocytes % (20.5 - 51.1 %) 40.9 Monocytes % (1.7 - 9.3 %) 8.9 Eosinophils % (0 - 5 %) 2.8 Basophils % (0.0 - 2.0 %) 0.4 Absolute Granulocytes (1.4 - 6.5 /CUMM) 2.2 Absolute Lymphocytes (1.2 - 3.4 /CUMM) 1.9 Absolute Monocytes (0.10 - 0.60 /CUMM) 0.4 Absolute Eosinophils (0.0 - 0.7 /CUMM) 0.1 Absolute Basophils (0.0 - 0.2 /CUMM) 0 PUBS MCHC (33.0 - 37.0 G/DL) 34.6 Disposition Summary Disposition Principal Diagnosis: - EtOH Abuse/Dependence - Suicide attempt Additional Diagnosis: -HTN - Bipolar Disoder - Anxiety - Depression Discharge Disposition: other general hospital Discharge Instructions General Discharge Information Code Status: Full Code Patient's Diet: heart healthy Patient's Activity: as tolerated Follow-Up Instructions/Appts: -Please follow-up with your primary care provider within 7 days after discharge. -Please follow-up with your psychiatrist 14 days after discharge. -We have made changes to your home medications, please read the instructions carefully. -Please come back to the hospital if your symptoms got worse. Medications at Discharge Discharge Medications: Stop taking the following medications: Gabapentin (Gabapentin) 400 MG CAPSULE ORAL THREE TIMES DAILY Qty = 45 Paroxetine HCl (Paxil) 10 MG TABLET ORAL DAILY Qty = 15 Cyclobenzaprine HCl (Cyclobenzaprine HCl) 10 MG TABLET ORAL THREE TIMES DAILY Qty = 45 Olanzapine (Olanzapine) 20 MG TABLET ORAL Every night Qty = 15 Continue taking these medications: Lisinopril (Lisinopril) 20 MG TABLET 1 Tablet ORAL DAILY Qty = 30 Comments: PER PT Divalproex Sodium (Depakote) 500 MG TABLET. 1,500 Milligram ORAL TAKE AT BEDTIME Comments: Last Taken: 08/14/16 Time: 2200PM Trazodone HCl (Trazodone HCl) 100 MG TABLET 1 Tablet ORAL Every night Days = 30 Comments: Last Taken:08/14/16 Time: 2200PM Acetaminophen (Tylenol Extra Strength) 500 MG TABLET 2 Tablet ORAL As Directed Comments: NOT GIVEN Nicotine Polacrilex (Nicotine Lozenge) 4 MG LOZENGE DAILY Qty = 168 Comments: NOT GIVEN Atorvastatin Calcium (Atorvastatin Calcium) 10 MG TABLET 1 Tablet ORAL DAILY Qty = 90 Comments: NOT GIVEN IN HOSPITAL Start taking the following new medications: Olanzapine (Olanzapine) 10 MG TABLET 10 Milligram ORAL 2200 Days = 28 No Refills Comments: Last Taken: 08/14/16 Time: 2300PM Sennosides/Docusate Sodium (Senna Plus Tablet) 8.6 MG-50 MG TABLET 1 Tablet ORAL TWICE DAILY as needed for CONSTIPATION Days = 28 No Refills Comments: NOT GIVEN Folic Acid (Folic Acid) 1 MG TABLET 1 Milligram ORAL DAILY Days = 28 No Refills Comments: Last Taken: 08/15/16 Time: 0800AM Multivitamin (One Daily Multivitamin) 1 EACH TABLET 1 Tablet ORAL DAILY Days = 28 No Refills Comments: Last Taken: 08/15/16 Time: 0800AM Lorazepam (Ativan) 1 MG TABLET 0 ORAL SEE INSTRUCTIONS Qty = 60 No Refills Instructions: take 1 tab every 6 hours on 08/15 take 1 tab every 8 hours on 08/16 take 1 tab every 12 hours on 08/17 take half a tab every 12 hours on 08/18 take half a tab on 08/19 and then stop Comments: Last Taken: 08/15/16 Time: 1200PM Copies To: ANA LILIA PRIETO,AISHA Attending Review Statement Documenting Attending: TED HAHN M.D Other Findings: I have reviewed the discharge summary.
[2016-08-15] MEDS ORDERED: ATIVAN1 M1 PO (14:25)
--- NOTE | 2016-08-15 15:01 | NUR ---
NURSING NOTE: BELONGINGS GIVEN BACK TO PT. SIGNED FOR THEM
--- NOTE | 2016-08-15 15:04 | PN- Housestaff ---
MILENA PRIETO,YESI 08/15/16 1504: Subjective Follow-up For: Drug intoxication Suicidal ideation/attempt Subjective: Patient was seen and examined at bedside. He reports persistent tremor, anxiety and headache but with improvement. His CIWA ranging from 0-9 overnight. Required 4mg of IV Ativan PRN. Denies chest pain, palpitation, shortness breath, nausea, vomiting, weakness, numbness, or any seizure activity. Review of Systems Constitutional: Reports: see HPI. Objective Last 24 Hrs of Vital Signs/I&O Vital Signs Date Time Temp Pulse Resp B/P Pulse O2 O2 Flow FiO2 Ox Delivery Rate 08/15 1600 98.8 82 20 140/78 08/15 1600 98.8 82 20 140/78 92 Room Air 08/15 1200 80 20 136/78 08/15 0758 98.8 81 20 118/64 92 Room Air 08/15 0200 98.0 85 20 110/72 08/15 0000 98.1 80 20 152/100 93 Room Air 08/15 0000 97.8 86 18 110/90 93 Room Air 08/15 0000 93 Room Air 08/14 2000 98.4 92 28 140/90 94 Room Air 08/14 1941 98.4 92 28 140/90 Intake & Output 08/15 1600 08/15 0800 08/15 0000 Intake Total 1000 500 Output Total Balance 1000 500 Intake, IV 100 Intake, Oral 900 500 Number 0 Bowel Movements Physical Exam General Appearance: Alert, Oriented X3, Cooperative, No Acute Distress Current Medications: Current Medications Sig/Minerva Start time Last Medication Dose Route Stop Time Status Admin Divalproex Sodium 1,500 MG AT BEDTIME 08/13 2200 DCD 08/14 PO 2306 Folic Acid 1 MG DAILY 08/14 1000 DCD 08/15 PO 0812 Heparin Sodium 5,000 UNIT Q8 08/12 2200 DCD 08/15 (Porcine) SC 0557 Lorazepam 0.5 MG ONCE 08/18 0000 DC PO 08/18 0001 Lorazepam 0.5 MG Q6H 08/17 0000 DC PO 08/17 1801 Lorazepam 0.5 MG ONCE ONE 08/16 1800 CAN PO 08/16 1801 Lorazepam 1 MG Q6H 08/16 0000 DC PO 08/16 1201 Lorazepam 1 MG Q6 08/15 1234 DCD 08/15 PO 1702 Lorazepam 1.5 MG Q12H 08/15 0600 DC 08/15 PO 08/15 1801 0552 Lorazepam 1 MG Q12H 08/15 0000 DC 08/15 PO 08/15 1201 1150 Lorazepam 2 MG Q2P PRN 08/13 1115 DCD 08/14 IV 1325 Lorazepam 1 MG Q2P PRN 08/13 1115 DCD 08/15 IV 1605 Multivitamins 1 TAB DAILY 08/14 1000 DCD 08/15 PO 0812 Nicotine 14 MG DAILY 08/13 1831 DCD 08/15 TOP 0812 Olanzapine 10 MG 2200 08/15 2200 DCD PO Olanzapine 10 MG 2200 08/13 2200 DC 08/14 PO 2307 Ondansetron HCl 4 MG Q6P PRN 08/13 0515 DCD 08/13 IV 0514 Senna/Docusate Sodium 1 TAB BID PRN 08/15 0845 DCD PO Thiamine HCl 100 MG DAILY 08/17 1000 CAN Sodium Chloride 100 ML IV Thiamine HCl 100 MG Q8 08/15 1400 CAN Sodium Chloride 100 ML IV 08/17 0000 Thiamine HCl 100 MG ONCE ONE 08/15 1245 CAN Sodium Chloride 100 ML IV 08/15 1256 Thiamine HCl 100 MG DAILY 08/15 1237 DC Sodium Chloride 100 ML IV Thiamine HCl 100 MG DAILY 08/14 1000 DC 08/15 PO 0812 Trazodone HCl 100 MG AT BEDTIME NEED.. 08/14 1145 DCD 08/14 PO 2358 Assessment/Plan Assessment: #Overdose Cyclobenzaprine as suicidal attempts patient admitted taking 400 mg of cyclobenzaprine on arrival in ED. Clinical course deteriorated in ED with progressive somnolence. EKG shows NL QRS, no arrhythmia noted. * We will continue cardiac and respiratory monitoring ICU. If patient continued to be stable he will be transferred to general medical. * will continue 1:1 sitter for suicidality * First ABG result was 7.43/39/77/25. * Seizure precautions. * Watch for aspiration. #Alcohol Dependence/Abuse Recent detox noted and patient admitted to drinking some alcohol. Blood level negative at time of presentation. He already received thiamine, MVI, folate, etc as per protocol. * we'll continue ETOH Detox protocol. * we'll continue Ativan taper - 1mg Q6 PO * Psych was consulted we'll follow up recommendations. #Bipolar/Anxiety/Depression/Suicide Attempt Pt has significant psychiatric history with multiple prior suicidal attempts. Has been on SSRI (paroxetine), Divalproex & gabapentin. Patient stated he had not been taking psych meds. * We will start patient on olanzapine 10 mg daily at bed time. per psych after 3 -4 days, may increase to olanzapine 20 mg PO at bedtime.( Hold for arrhythmia or QTc greater than 475 mS. ) * We will start trazodone 100 mg PO at bedtime as needed, for insomnia. * Continue Depakote ER 1500 mg PO at bedtime * We'll check valproic acid level after 3 doses, at trough. This lab draw will be before the evening dose on 08/16/2016. * Psych may consider re-starting gabapentin tomorrow. * Will follow any further psych consultation. #Hypertension patient normally on Lisinopril. To avoid hypotension associated with cyclobenzaprine overdose. * we'll hold Lisinopril/antihypertensive at present. #Hyperlipidemia on Atorvastatin. * Hold medication at present. #Diet * Regular diet #DVT prophylaxis * Subcutaneous heparin #CODE STATUS * FC Problem List: 1. Alcohol intoxication 2. Depressed affect 3. Overdose of muscle relaxant Pain Ratin Pain Location: Headache Pain Goal: Remain pain free Pain Plan: Mild path Tomorrow's Labs & Rationales: None JOVANI PRIETO,TED 08/15/16 9247: Attending MD Review Statement Attending Statement Attending MD Statement: examined this patient, discuss w/resident/PA/STEAM SERVICE INSPECTOR, agreed w/resident/PA/STEAM SERVICE INSPECTOR, reviewed EMR data (avail), discussed with nursing, discussed with case mgmt, amended to note Attending Assessment/Plan: Patient seen and examined. Resting comfortably not in acute distress. Flat affect. His CIWA score don't improve as had spikes on and off overnight. Recommend changing his benzodiazepine taper to 1 mg every 6 hours. He has currently been accepted at an inpatient psychiatric facility and will be discharged to for further management of his suicidal ideation and continued taper of his benzodiazepine regimen.
[2016-08-15 16:00] VITALS: BP 140/78
--- NOTE | 2016-08-15 18:01 | NUR ---
1740 ALERT AND ORIENTED X 3. VITAL SIGNS STABLE. ON ROOM AIR. NO DISTRESS NOTED. DENIES CHEST PAIN. RESTING COMFORTABLY AT THIS TIME. SITTER AT BEDSIDE VERBALIZED UNDERSTANDING OF DISCHARGE PLAN
== END 2016-08-15 17:41 | disposition short-term general hospital (02) | DRG 812 ==
LOC: ENRESERVDT → ENRESERVTM → ERH 14:59 → CRI 17:51 → ENPENDDIS 17:51 → ERHI 17:51 → CRI 19:52 → 2NB 08-15 00:27
PROVIDERS: Emergency Medicine; Internal Medicine; Student in an Organized Health Care Education/Training Program; ADMIT Internal Medicine
DX: T48.1X2A Poisoning by skeletal muscle relaxants [neuromuscular blocking agents], intentional self-harm, initial encounter (principal); T42.4X2A Poisoning by benzodiazepines, intentional self-harm, initial encounter; T40.7X2A Poisoning by cannabis (derivatives), intentional self-harm, initial encounter; Y92.009 Unspecified place in unspecified non-institutional (private) residence as the place of occurrence of the external cause; F10.20 Alcohol dependence, uncomplicated; J96.01 Acute respiratory failure with hypoxia; F31.9 Bipolar disorder, unspecified; I10 Essential (primary) hypertension; E78.5 Hyperlipidemia, unspecified
CPT/HCPCS: CCU; 36415; 80307; 82436; 93005; 93010; 99232; G0480; J1644; J2405; J3490; J7042; J7060

== ENCOUNTER 2016-09-25 13:36 | Emergency (ER) | payer OTHER ==
[~2016-09-25] VITALS: Ht 188 cm; Wt 104.3 kg
[~2016-09-25 13:36] MED LIST changes: +CYCLOBENZAPRINE10 M1 PO; +FOLIC ACID1 M1 PO; +GABAPENTIN400 M2 PO; +NICOTINE LOZENGE4 MG PO; +OLANZAPINE10 M1 PO; +ONE DAILY MULT1 EAC2 PO; +PAXIL10 M1 PO; +SENNA PLUS TAB1 EACH PO; +TYLENOL EXTRA500 M2 PO
--- NOTE | 2016-09-25 14:14 | ED PSYCHIATRIC COMPLAINT ---
See Addendum History of Present Illness General Chief Complaint: Psychiatric Related Complaint Stated Complaint: +SI Source: patient, old records Exam Limitations: no limitations Vital Signs & Intake/Output Vital Signs & Intake/Output Vital Signs Date Time Temp Pulse Resp B/P Pulse O2 O2 Flow FiO2 Ox Delivery Rate 09/25 1748 98.0 81 16 126/77 05 Room Air 09/25 1621 97.3 87 18 140/80 95 Room Air 09/25 1339 97.5 130 18 150/94 96 Allergies Coded Allergies: fluoxetine (Intermediate, ANXIETY 06/24/16) bupropion (Mild, Increase in afshan, reported on a previous admission 08/13/16) Triage Note: 36 YEAR OLD MALE TO ER , STATES THAT HE HAS HAD INCREASED DEPRESSION FOR THE PAST WEEK WITH POSITIVE SI THOUGHTS. PT PLANS TO OVER DOSE. PT ALSO STATES THAT HE WAS IN REHAB AND THAT HE WALKED OUT A WEEK AGO. WHEN PT LEFT HE DIDN'T LEAVE WITH HIS MEDS. PT HAS BEEN WITHOUT DEPAKOTE/TRAZADONE/GABAPENTIN/PAXIL/LISINOPRIL.DEN IES DAILY ETOH, BUT STTAES THAT HE HAS BEEN SMOKING MARAJUANNA. Triage Nurses Notes Reviewed? yes Onset: Last week Duration: day(s):, constant, continues in ED, getting worse Timing: recent history Severity: severe Associated Symptoms: impaired concentration, insomnia, suicidal ideation HPI: 1 week prior to admission patient left alcohol and drug rehabilitation without his medications. He has developed anorexia insomnia depressed mood with suicidal thoughts by overdose. He denies fever chills nausea vomiting diarrhea abdominal pain chest pain shortness breath headache dysuria rash bleeding hallucination homicidal ideation (SUMMER PRIETO,LARRY) Reconcile Medications Atorvastatin Calcium 10 MG TABLET 1 TAB PO DAILY cholesterol (Reported) Divalproex Sodium (Depakote) 500 MG TABLET.DR 1,500 MG PO QHS MENTAL HEALTH ( Reported) Gabapentin 300 MG CAPSULE 1 CAP PO TID MENTAL HEALTH (Reported) Lisinopril 20 MG TABLET 1 TAB PO DAILY BP (Reported) Nicotine Polacrilex (Nicotine Lozenge) 4 MG LOZENGE somking (Reported) Olanzapine 20 MG TABLET 1 TAB PO QPM MENTAL HEALTH (Reported) Paroxetine HCl 20 MG TABLET 1 TAB PO DAILY MENTAL HEALTH (Reported) Trazodone HCl 100 MG TABLET 1 TAB PO QPM SLEEP (Reported) (JOSE ANTONIO ROSARIO DO) Past History Travel History Traveled to [place] past 21 day No Medical History Any Pertinent Medical History? see below for history Neurological: delerium tremens, restless leg syndrome, ETOH W/D SEIZURES EENT: NONE Cardiovascular: hypertension, hyperlipidemia Respiratory: NONE Gastrointestinal: NONE Hepatic: NONE Renal: NONE Musculoskeletal: LEFT KNEE MENISCAL TEAR Psychiatric: anxiety, bipolar disease, depression, substance abuse, S.I. 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 No (LARRY WHEELER MD) Review of Systems Review of Systems Constitutional: Reports: no symptoms. EENTM: Reports: no symptoms. Respiratory: Reports: no symptoms. Cardiovascular: Reports: no symptoms. GI: Reports: no symptoms. Genitourinary: Reports: no symptoms. Musculoskeletal: Reports: no symptoms. Skin: Reports: no symptoms. Neurological/Psychological: Reports: see HPI, anxiety, confusion, depressed. Hematologic/Endocrine: Reports: no symptoms. Immunologic/Allergic: Reports: no symptoms. All Other Systems: Reviewed and Negative (LARRY WHEELER MD) Physical Exam Physical Exam General Appearance: well developed/nourished, alert, awake, moderate distress Head: atraumatic, normal appearance Eyes: Bilateral: normal appearance, PERRL, EOMI. Ears, Nose, Throat: normal pharynx, normal ENT inspection, hearing grossly normal Neck: normal inspection, supple Respiratory: normal breath sounds Cardiovascular: regular rate/rhythm Gastrointestinal: soft, non-tender Extremities: normal range of motion Neurological/Psychiatric: no motor/sensory deficits, awake, alert, anxious, drawing tender II-XII nml as tested, depressed affect Appearance/Memory/Insight: disheveled, impaired insight Behavoir/Eye Contact/Speech: avoids eye contact, cooperative, normal speech Thoughts/Hallucinations: no apparent hallucination Skin: intact, normal color, warm/dry SAD PERSONS SAD PERSONS Response Value Male Sex? yes 1 Depression/Hopelessness? yes 2 Previous Attempts/Psych Care yes 1 Excessive Ethanol/Drug Use? yes 1 Rational Thinking Loss? yes 2 Single//? yes 1 Social Support? has no support 1 Stated Future Intent? yes 2 Total 11 SAD PERSONS Done? yes (LARRY WHEELER MD) Progress Differential Diagnosis: drug intoxication, drug overdose, drug withdrawal, electrolyte abnormality, hypoglycemia Plan of Care: Orders Procedure Date/time Status Regular Diet 09/25 L Active Continuous Observation Monitor 09/25 1412 Active URINE DRUG SCREEN FOR ER ONLY 09/25 141 Complete ACETOMINOPHEN 09/25 141 Complete SALICYLATE 09/25 141 Complete ETHANOL 09/25 141 Complete COMPREHENSIVE METABOLIC PANEL 09/25 141 Complete CBC WITHOUT DIFFERENTIAL 09/25 1412 Complete ED CRISIS PSYCH CONSULT 09/25 1412 Active Laboratory Tests 09/25/16 1450: Anion Gap 8, Estimated GFR > 60, BUN/Creatinine Ratio 16.0, Glucose 101 H, Calcium 9.6, Total Bilirubin 0.9, AST 15 L, ALT 30, Alkaline Phosphatase 57, Total Protein 6.8, Albumin 4.1, Globulin 2.7, Albumin/Globulin Ratio 1.5, CBC w Diff NO MAN DIFF REQ, RBC 5.22, MCV 91.4, MCH 31.7 H, RDW 12.9, MPV 6.8 L, Gran % 49.4, Lymphocytes % 38.6, Monocytes % 7.7, Eosinophils % 4.0, Basophils % 0.3, Absolute Granulocytes 1.7, Absolute Lymphocytes 1.3, Absolute Monocytes 0.3 , Absolute Eosinophils 0.1, Absolute Basophils 0, PUBS MCHC 34.7, Salicylates < 1.0, Acetaminophen < 10.0 L, Serum Alcohol < 10.0 09/25/16 1435: Urine Opiates Screen < 100.00, Methadone Screen 49, Barbiturate Screen < 60, Ur Phencyclidine Scrn < 6.00, Amphetamines Screen < 100, U Benzodiazepines Scrn 86, Urine Cocaine Screen < 50, Urine Cannabis Screen > 80.00 H Hand-Off Endorsed To: JOSE ANTONIO ROSARIO DO Endorsed Time: 1529 Pending: consult (LARRY WHEELER MD) Initial ED EKG: none (JOSE ANTONIO ROSARIO DO) Departure Departure Disposition: STILL A PATIENT Condition: Stable Clinical Impression Primary Impression: Depression with suicidal ideation Referrals: AISHA SUNG MD (PCP/Family) Departure Forms: Customer Survey General Discharge Information (SUMMER PRIETO,LARRY) Departure Comments 09/25/16 The patient was signed out to me by Dr. Wheeler. He is currently for a bed search. The patient is being placed for depression with suicidal ideation. (JOSE ANTONIO ROSARIO DO) General Discharge Information
[2016-09-25 15:10] LABS: ABSOLUTE BASOPHIL COUNT 0 /CUMM (0.0-0.2); ABSOLUTE EOSINOPHIL COUNT 0.1 /CUMM (0.0-0.7); ABSOLUTE GRANULOCYTE CT 1.7 /CUMM (1.4-6.5); ABSOLUTE LYMPH COUNT 1.3 /CUMM (1.2-3.4); ABSOLUTE MONOCYTE COUNT 0.3 /CUMM (0.10-0.60); BASOPHIL % 0.3 % (0.0-2.0); GRANULOCYTE % 49.4 % (42.2-75.2); HEMATOCRIT 47.7 % (42-52); MEAN CORPUSCULAR HGB 31.7 PG (27.0-31.0); MEAN CORPUSCULAR HGB CONC 34.7 G/DL (33.0-37.0); MEAN CORPUSCULAR VOLUME 91.4 FL (80.0-94.0); MEAN PLATELET VOLUME 6.8 FL (7.4-10.4); PLATELET COUNT 208 /CUMM (130-400); RBC DISTRIBUTION WIDTH 12.9 % (11.5-14.5); RED BLOOD CELL CT 5.22 /CUMM (4.70-6.10); WHITE BLOOD CELL COUNT 3.4 /CUMM (4.8-10.8)
[2016-09-25] MEDS ORDERED: GABAPENTIN300 M2 PO (15:26)
[2016-09-25] MEDS ORDERED: PAROXETINE HCL20 M1 PO (15:27)
[2016-09-25] MEDS ORDERED: OLANZAPINE20 M1 PO (15:27)
--- NOTE | 2016-09-25 17:11 | ED PSYCH CRISIS CONSULTATION ---
Crisis Consult Basic Assessment Date of Consult: 09/25/16 Responsible Person/Accompanied By: self Insurance Authorization: Insurance #1: Insurance name: LYNETTE CASANOVA Phone number: Policy number: [id number] Group number: Authorization number: ED Provider: Patient's ED Provider: LARRY WHEELER MD Primary Care Physician: Patient's PCP: AISHA SUNG MD PCP's Current Psychiatrist: none Chief Complaint: Psychiatric Related Complaint Patient's Quote: I don't have my medications. I've been considering suicide past few days. Present Illness: Pt is a 36 yo male presenting to [facility] ED today with report of suicidal ideation. Pt reports he left rehab program 2 weeks ago ama and hasn't had his medications since. Pt reports inability to sleep, unbearable anxiety, increased depression and suicidal thoughts past few days. Pt has a hx of multiple suicide attempts most recents an o/d of flexerall in jul 2016 that resulted in admission to [facility] ICU. Pt has had several inpatient psychiatric admissions most recently at [facility] in Jul 2016. Pt has a hx of etoh, cocaine, opiates and cannabis abuse. Pt most recently reports drinking 2-3x past week and cannabis almost daily. He reports no other drug use since leaving [facility]. Pt reports he had been prescribed Zyprexa, Depakote, Trazadone and Ativan. Pt reports struggling on and off for years with depression, SI and substance abuse. He reports primary trigger is missing his children. He has 2 in [place] and one in [facility] that live with their mothers. Pt reports living by himself in [place]. Pt presents as alert and OX3. He appears anxious and reports hopelessness. He is voluntarily looking for inpatient treatment. Patient's Address: [address] [place] [address] [place] [id number] Other Phone Number: Who Do You Live With? Patient/Self Family/Informants Interviewed: pt declined Allergies - Coded Allergies: fluoxetine (Intermediate, ANXIETY 06/24/16) bupropion (Mild, Increase in afshan, reported on a previous admission 08/13/16) Current Medications - Scheduled Medications Atorvastatin Calcium 10 MG TABLET 1 TAB PO DAILY cholesterol #90 (Reported) Entered as Reported by PRERNA GAITAN on 08/12/16 1937 Divalproex Sodium (Depakote) 500 MG TABLET.DR 1,500 MG PO QHS MENTAL HEALTH ( Reported) Entered as Reported by JAMILA MELGOZA on 04/18/16 0621 Gabapentin 300 MG CAPSULE 1 CAP PO TID MENTAL HEALTH #90 (Reported) Entered as Reported by NORMA LUKE on 09/25/16 1526 Last Taken: At an unknown date and time Lisinopril 20 MG TABLET 1 TAB PO DAILY BP #30 (Reported) Entered as Reported by LAURA WETZEL on 03/31/16 1827 Olanzapine 20 MG TABLET 1 TAB PO QPM MENTAL HEALTH #15 (Reported) Entered as Reported by NORMA LUKE on 09/25/16 1527 Paroxetine HCl 20 MG TABLET 1 TAB PO DAILY MENTAL HEALTH #30 (Reported) Entered as Reported by NORMA LUKE on 09/25/16 1527 Trazodone HCl 100 MG TABLET 1 TAB PO QPM SLEEP 30 Days (Reported) Entered as Reported by LAURA WETZEL on 05/07/16 1658 Miscellaneous Medications Nicotine Polacrilex (Nicotine Lozenge) 4 MG LOZENGE somking (Reported) Entered as Reported by PRERNA GAITAN on 08/12/16 1928 Laboratory Results: Laboratory Tests 09/25/16 1450: Anion Gap 8, Estimated GFR > 60, BUN/Creatinine Ratio 16.0, Glucose 101 H, Calcium 9.6, Total Bilirubin 0.9, AST 15 L, ALT 30, Alkaline Phosphatase 57, Total Protein 6.8, Albumin 4.1, Globulin 2.7, Albumin/Globulin Ratio 1.5, CBC w Diff NO MAN DIFF REQ, RBC 5.22, MCV 91.4, MCH 31.7 H, RDW 12.9, MPV 6.8 L, Gran % 49.4, Lymphocytes % 38.6, Monocytes % 7.7, Eosinophils % 4.0, Basophils % 0.3, Absolute Granulocytes 1.7, Absolute Lymphocytes 1.3, Absolute Monocytes 0.3 , Absolute Eosinophils 0.1, Absolute Basophils 0, PUBS MCHC 34.7, Salicylates < 1.0, Acetaminophen < 10.0 L, Serum Alcohol < 10.0 09/25/16 1435: Urine Opiates Screen < 100.00, Methadone Screen 49, Barbiturate Screen < 60, Ur Phencyclidine Scrn < 6.00, Amphetamines Screen < 100, U Benzodiazepines Scrn 86, Urine Cocaine Screen < 50, Urine Cannabis Screen > 80.00 H Past History Past Medical History Neurological: delerium tremens, restless leg syndrome, ETOH W/D SEIZURES EENT: NONE Cardiovascular: hypertension, hyperlipidemia Respiratory: NONE Gastrointestinal: NONE Hepatic: NONE Renal: NONE Musculoskeletal: LEFT KNEE MENISCAL TEAR Psychiatric: anxiety, bipolar disease, depression, substance abuse, S.I. BIPOLAR DISORDER OVERDOSE suicide attempt X 15 events Endocrine: NONE Blood Disorders: NONE Cancer(s): NONE SAWMILL HAND/Reproductive: NONE Past Surgical History Surgical History: hernia repair-umbilical Psychosocial History Strengths/Capabilities: Pt is able to articulate his wants and needs. Pt has insight into his mental health and substance abuse. Pt has had periods of sobriety, stability, and treatment. Physical Limitations (Interventions): None identified. Psychiatric Treatment History Psych Treatment Psychiatric Treatment Yes Inpatient Treatment Yes Outpatient Treatment Yes Location of Treatment Long hx of inpatient: [facility] Reason for Treatment Depression; SI; ETOH; opiod and cocaine dependence Dates of Treatment most recent inpatient Jul 2016 at [facility] Response to Treatment pt has periods of sobriety and stability but past several months ongoing depression with SI and problem substance use. Diagnosis by History: Bipolar D/O Polysubstance Abuse Substance Use/Abuse History Drug Use/Abuse 1 Substances Used/Abused Yes Substance Used/Abused Alcohol Last Used 2 days ago Drug Use/Abuse 2 Substances Used/Abused Yes Substance Used/Abused Crack Cocaine Last Used over 1 month ago Drug Use/Abuse 3 Substances Used/Abused Yes Substance Used/Abused Marijuana Last Used yesterday Substance Abuse Treatment Substance Abuse Treatment Past Substance Abuse TX Yes Inpatient Treatment Yes Outpatient Treatment Yes Location of Treatment most recent [facility] rehab in [place] Reason for Treatment etoh and cocaine abuse Dates of Treatment most recent Aug 2016 Response to Treatment frequent relapse Comments: pt reports 3x etoh use past week and almost daily cannabis use past week Current Mental Status Mental Status Orientation: Person, Place, Situation Affect: Anxious, Depressed, Flat, Hopeless Speech: WNL Neuro-vegetative: Anhedonia, Appetite Decreased, Concentration Poor, Energy Decreased, Helpless, Loss of Interest, Sleep Disturbance Appearance Appearance- Dress/Hygiene: pt in hospital srubs sitting up in bed wrapped in blanket. Pt shaking. reports feeling cold. wears glasses. Behaviors Thought Process: WNL Thought Content: WNL Memory: WNL Insight: Fair SI/HI Risk Assessment Past Suicidal Ideation/Attempts Yes Current Suicidal Ideation/Att Yes Past Homicidal Ideation/Att: No Current Homicidal Ideation/Attempts No Degree of Intent: Thoughts/No Intent Danger To: Self Gravely Disabled: Poor Impulse Control, Poor Judgment Risk Factors: chronic/serious med cond., high anxiety/distress, history of suicide atmpts, SA/MH hospitalized, substance abuse, isolate/no social support, poor impulse control, lives alone, male, limited support Lethality Ratin PTSD Checklist PTSD Done? patient declined ED Management Sitter: Yes Restraints: No DSM5/PS Stressors/Medical Prob Diagnosis' (DSM 5, Stressors, Medical): unspecified depressive d/o (F32.9) polysubstance abuse seperation from children drug/etoh relapse off medications high blood pressure high cholesterol Current GAF: 25 Comments: pt reports leaving rehab 2 weeks ago ama without getting orders for medications. Pt reports inability to sleep, "unbearable' anxiety and depression. Considering suicide. Pt made attempt to o/d in Jul. Departure Disposition Psych Medical Clearance Date: 09/25/16 Medically Cleared at: 1615 Time Started: 1620 Time Ended: 1700 Psychiatrist Consulted: Alverto Fleming MD Date Disposition Established: 09/25/16 Time Disposition Established: 1705 Plan for Disposition - Modality: Inpatient Psychiatry Facility: bed search Rationale for Disposition: Pt reports positive SI with recent intentional o/d of flexerall in Jul 2016. Pt was admitted to [facility] then transferred to [facility] for inpatient psychiatry. Pt then discharged to [facility] from rehab but left ama after 2 weeks without medications. Pt reports increased depression, inability to sleep and unbearable anxiety. pt reports major trigger is missing his children. Type of IP Admission: Voluntary Referrals AISHA SUNG MD (PCP/Family)
[2016-09-25 20:14] VITALS: BP 140/85
--- NOTE | 2016-09-30 16:09 | IOP INCIDENTAL NOTE ---
IOP Incidental Note Details: Clinician contacted pt as he was scheduled for 2pm intake today and he did not show. Pt said he was scheduled for next Friday [facility] IOP intake. Clincian reported there is no availability on 10/07 and inquired if he could come in 10/02 for 3:30PM intake. Pt was agreeable to come in at that time.
--- NOTE | 2016-10-02 16:02 | IOP INTRA-AGENCY ASSESS ---
See Addendum Psych Intra-Agency Transfer Date of Group or Service 10/02/16 Time of Group or Service: 1530 Part 1 Transferring Program: [facility] Accepting Program: Dual A Presenting Problem: Pt is 36 yo male admitted to [facility] referred by ED on 09/25-09/30 for SI and detox. Per the ED consultaion on 09/25 : Pt is a 36 yo male presenting to [facility] ED today with report of suicidal ideation. Pt reports he left rehab program 2 weeks ago ama and hasn't had his medications since. Pt reports inability to sleep, unbearable anxiety, increased depression and suicidal thoughts past few days. Pt has a hx of multiple suicide attempts most recents an o/d of flexerall in jul 2016 that resulted in admission to [facility]. Pt has had several inpatient psychiatric admissions most recently at [facility] in Jul 2016. Pt has a hx of etoh, cocaine, opiates and cannabis abuse. Pt most recently reports drinking 2-3x past week and cannabis almost daily. He reports no other drug use since leaving [facility]. Pt reports he had been prescribed Zyprexa, Depakote, Trazadone and Ativan. Pt reports struggling on and off for years with depression, SI and substance abuse. He reports primary trigger is missing his children. He has 2 in [place] and one in [place] that live with their mothers. Pt reports living by himself in [place]. Pt presents as alert and OX3. He appears anxious and reports hopelessness. He is voluntarily looking for inpatient treatment. Pt reports positive SI with recent intentional o/d of flexerall in Jul 2016. Pt was admitted to [facility] ICU then transferred to [facility] for inpatient psychiatry. Pt then discharged to [facility] from rehab but left ama after 2 weeks without medications. Pt reports increased depression, inability to sleep and unbearable anxiety. pt reports major trigger is missing his children.>>>>>HARLEY HESTER LCSW Today pt presented with forward thinking and positive about seeking help. He expressed he made a few mistakes in the past few months with leaving programs abruptly and stopping medications. Pt said his anxiety and bipolar disorder " got so bad" he started using alcohol and cannabis to self medicate. Pt is going to meetings 3x day currently at the [employer] and has a sponsor . " I am very active in the program." Pt describes his cravings are 8 out of 10. Pt denies SI/HI/AVH at current. Pt said sleeping has been diffiicultand is waking up 2-3 times a night. 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 He is motivated for IOP treatment. Treatment goal " stay sober , build structure in my life and get some time away from the old thinking and gain some new thinking patterns. Preferred Learning Style i.e. visual, auditory, experiential, etc: experiential and visual Orientation Person, Place, Situation Affect WNL Speech WNL Neuro-vegetative Sexual Interest Increased, Sleep Disturbance Thought Process WNL Thought Content WNL Memory WNL Insight Fair Judgment Fair Appearance Dress/Hygiene: Risk Assessment RISK ASSESSMENT Suicidal Ideation/Attempts (past or current): Past: Last attempt July 2016 muscle relaxers, thoughts of jumping out of the window . Current: Denies Family History: Mom has depression anxiety . Homicidal Ideation/Attempts (past or current): Past: Int he past pt said his ex pissed him off at time for taking the kids away from him wanted to kill her but had no plan or intent. Current: Denies Protective factors for SI/HI: "Not using drugs, not stopping my medication and not putting myself in bad situations. " Degree of Intent None Risk Factors SA/ Hospitalization(s), Lives alone, Male, Substance Abuse Lethality Rating 1 (mild) Medication Review Allergies Coded Allergies: fluoxetine (Intermediate, ANXIETY 06/24/16) bupropion (Mild, Increase in afshan, reported on a previous admission 08/13/16) Medication Details MEDICATIONS PSYCHIATRIC MEDICATIONS Depakote ER 500mg oral tablet, 1x day extended release mood gabapentin 300mg oral capsule TID mood/cravings olanzapine 10 mg oral tablet once a day mood Paxil 20mg oral tablet daily mood OTHER MEDICATIONS Lisinopril 20 mg tablet oral daily pravastatin 40 mg oral tablet once a day HLD Trazodone 100 mg oral tablet bedtime 1xday insomnia PREVIOUS PSYCHIATRIC MEDICATIONS Pt reports a bad reaction to prozac in the past. Part 2 Assessed Needs and Initial Treatment Plan/Goals: Start IOP,group therapy, relapse prevention, AA meetings, and random utox and breathalyzer tests. Further Evaluations Recommended: None Indicated Neurological Vocational Psychiatric Medical (H&P) Nutritional Psychological Educational SA Assessment Other * To be completed by Admitting MD or Assigned VEGETABLE CUTTER Only PRE-CERTIFICATION FOR ADMISSION- Managed Care Provider: Name of Reviewer/Prison Warden: Contact Telephone #: # Inpatient days approved: Authorization #: Date of Next Review: DSM5/PS Stressors/Medical Prob Diagnosis' (DSM 5, Stressors, Medical): F31.31 Bipolar I depressed, mild; F 10.20 Alcohol disorder,severe; F 12.20 Cannabis use d/o, moderate; unspecified depressive d/o (F32.9) psychosocial:primary supports,seperation from children Medical: high blood pressure, high cholesterol hx of seizure from withdrawal Current GAF: 25 Comments: Whodas: 12 Comments: Whodas: 12 pt reports leaving rehab 2 weeks ago ama without getting orders for medications. Pt reports inability to sleep, "unbearable' anxiety and depression. Considering suicide. Pt made attempt to o/d in Jul. to o/d in Jul. Neurological Vocational Psychiatric Medical (H&P) Nutritional Psychological Educational SA Assessment Other * To be completed by Admitting MD or Assigned VEGETABLE CUTTER Only PRE-CERTIFICATION FOR ADMISSION- Managed Care Provider: Name of Reviewer/Prison Warden: Contact Telephone #: # Inpatient days approved: Authorization #: Date of Next Review: DSM5/PS Stressors/Medical Prob Diagnosis' (DSM 5, Stressors, Medical): F31.31 Bipolar I depressed, mild; F 10.20 Alcohol disorder,severe; F 12.20 Cannabis use d/o, moderate; unspecified depressive d/o (F32.9) polysubstance abuse seperation from children drug/etoh relapse off medications high blood pressure high cholesterol Current GAF: 25 Comments: Whodas: 12 pt reports leaving rehab 2 weeks ago ama without getting orders for medications. Pt reports inability to sleep, "unbearable' anxiety and depression. Considering suicide. Pt made attempt to o/d in Jul.
== END 2016-09-25 20:33 | disposition short-term general hospital (02) ==
LOC: ERH 13:36
PROVIDERS: Emergency Medicine
DX: F32.9 Major depressive disorder, single episode, unspecified (principal); R45.851 Suicidal ideations
CPT/HCPCS: 80307; G0463; G0480

== ENCOUNTER 2016-11-05 16:22 | Emergency (ER) | payer OTHER ==
[~2016-11-05] VITALS: Ht 188 cm; Wt 108.9 kg
[~2016-11-05 16:22] MED LIST changes: +PAROXETINE HCL20 M1 PO
--- NOTE | 2016-11-05 18:17 | ED PSYCHIATRIC COMPLAINT ---
See Addendum History of Present Illness General Chief Complaint: Psychiatric Related Complaint Stated Complaint: PT FEELS LIKE HARMING HIMSELF Source: patient Exam Limitations: no limitations Vital Signs & Intake/Output Vital Signs & Intake/Output Vital Signs Date Time Temp Pulse Resp B/P Pulse O2 O2 Flow FiO2 Ox Delivery Rate 11/06 1427 96.9 95 18 127/71 100 Room Air 11/06 1148 97.4 65 18 119/59 96 Room Air 11/06 0818 97.3 68 18 125/59 95 Room Air 11/06 0615 54 16 152/78 96 Room Air 11/05 2135 96.5 60 20 124/57 92 Room Air 11/05 1630 98.1 127 24 138/81 94 Room Air ED Intake and Output 11/06 0000 11/05 1200 Intake Total 700 Output Total Balance 700 Intake, Oral 700 Patient 240 lb Weight Allergies Coded Allergies: fluoxetine (Intermediate, ANXIETY 11/05/16) bupropion (Mild, Increase in afshan, reported on a previous admission 11/05/16) Reconcile Medications Atorvastatin Calcium 10 MG TABLET 1 TAB PO DAILY cholesterol (Reported) Divalproex Sodium (Depakote) 500 MG TABLET.DR 1,500 MG PO QHS MENTAL HEALTH ( Reported) Gabapentin 300 MG CAPSULE 1 CAP PO TID MENTAL HEALTH (Reported) Lisinopril 20 MG TABLET 1 TAB PO DAILY BP (Reported) Nicotine Polacrilex (Nicotine Lozenge) 4 MG LOZENGE 18-20 GUILLE PO DAILY SMOKING CESSATION (Reported) Olanzapine 20 MG TABLET 1 TAB PO QPM MENTAL HEALTH (Reported) Paroxetine HCl 20 MG TABLET 1 TAB PO DAILY MENTAL HEALTH (Reported) Trazodone HCl 100 MG TABLET 2 TAB PO QPM SLEEP (Reported) Triage Note: TRIAGE: PT TO ER C/C SUICIDAL IDEATION. ADMITS TO PLAN TO THROW HIMSELF OFF THE BRIDGE ON [address] HX OF SI/SA VIA OVERDOSE. STATES SMOKE CRACK AND POT TODAY. ADMITS TO DAILY USE OF SAME FOR THE LAST WEEK. ADMITS TO DRINKING DAILY THE LAST 1.5 MONTHS BUT NO DRINK TODAY. USUALLY DRINKS A PINT OF VODKA DAILY. HX OF DETOX IN THE PAST, LAST DETOXED HERE AT [facility] BUT UNSURE HOW LONG AGO THAT WAS. PT CALM/COOPERATIVBE AT TRIAGE, DOES NOT MAKE EYE CONTACT. SOFT SPOKEN. Triage Nurses Notes Reviewed? yes HPI: Patient presents for evaluation of possible suicide ideation. Patient states he has been having suicidE thoughts for the past 4-6 weeks but has not acted upon any of these thoughts. Patient states he is compliant with with medications since hospitalization about 6 weeks ago. He does admit to alcohol use, crack cocaine and marijuana use over the past few days. It was at this point he experienced increasing thoughts of suicide. He states that he would jump off a bridge. He feels he needs to be admitted. (AMADO PRIETO,JOSE ANTONIO No) Past History Travel History Traveled to [place] past 21 day No Medical History Any Pertinent Medical History? see below for history Neurological: delerium tremens, restless leg syndrome, ETOH W/D SEIZURES EENT: NONE Cardiovascular: hypertension, hyperlipidemia Respiratory: NONE Gastrointestinal: NONE Hepatic: NONE Renal: NONE Musculoskeletal: LEFT KNEE MENISCAL TEAR Psychiatric: anxiety, bipolar disease, depression, substance abuse, S.I. 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 No (JOSE ANTONIO FISCHER MD) Review of Systems Review of Systems Constitutional: Reports: no symptoms. EENTM: Reports: no symptoms. Respiratory: Reports: no symptoms. Cardiovascular: Reports: no symptoms. GI: Reports: no symptoms. Genitourinary: Reports: no symptoms. Musculoskeletal: Reports: no symptoms. Skin: Reports: no symptoms. Neurological/Psychological: Reports: see HPI. Hematologic/Endocrine: Reports: no symptoms. Immunologic/Allergic: Reports: no symptoms. All Other Systems: Reviewed and Negative (JOSE ANTONIO FISCHER MD) Physical Exam Physical Exam General Appearance: SEE BELOW Neurological/Psychiatric: SEE BELOW Comments: General: Alert, calm, cooperative Head: Normocephalic, atraumatic Eyes: Normal inspection, no nystagmus, EOMI Ears: Normal inspection Nose: Normal inspection Throat: Moist mucosa Neck: Supple, no goiter Heart: Regular rate and rhythm, no murmurs rubs or gallops Lungs: Clear to auscultation bilaterally with good air entry Abdomen: Soft nontender nondistended, normal bowel sounds Chest: Nontender Extremities: Normal range of motion grossly, mild tremors present, no cyanosis clubbing or edema of the upper extremities Neurologic: cranial nerves II through XII grossly intact, speech clear, gait normal Psychiatric: No apparent delusions or hallucinations, no pressured speech or thought blocking, avoids eye contact, depressed affect SAD PERSONS Done? DEFERRED TO CRISIS (AMADO PRIETO,JOSE ANTONIO No) Progress Differential Diagnosis: SI, DEPRESSION, BIPOLAR Plan of Care: Orders Procedure Date/time Status Regular Diet 11/06 B Active Continuous Observation Monitor 11/06 1900 Active Continuous Observation Monitor 11/06 1500 Active Continuous Observation Monitor 11/06 1100 Active Continuous Observation Monitor 11/06 0700 Active Continuous Observation Monitor 11/06 0229 Active URINE DRUG SCREEN FOR ER ONLY 11/05 182 Complete ETHANOL 11/05 1826 Complete COMPREHENSIVE METABOLIC PANEL 11/05 1826 Complete CBC WITHOUT DIFFERENTIAL 11/05 1826 Complete ED CRISIS PSYCH CONSULT 11/05 1826 Active EKG 11/05 1635 Active Laboratory Tests 11/05/16 1922: Anion Gap 9, Estimated GFR > 60, BUN/Creatinine Ratio 20.9, Glucose 107 H, Calcium 9.2, Total Bilirubin 0.9, AST 20, ALT 38, Alkaline Phosphatase 46, Total Protein 6.3, Albumin 3.8, Globulin 2.5, Albumin/Globulin Ratio 1.5, CBC w Diff NO MAN DIFF REQ, RBC 4.46 L, MCV 92.8, MCH 31.9 H, RDW 12.7, MPV 6.7 L, Gran % 50.9, Lymphocytes % 35.1, Monocytes % 11.3 H, Eosinophils % 2.3, Basophils % 0.4, Absolute Granulocytes 2.3, Absolute Lymphocytes 1.6, Absolute Monocytes 0.5 , Absolute Eosinophils 0.1, Absolute Basophils 0, PUBS MCHC 34.3, Serum Alcohol < 10.0 11/05/16 1845: Urine Opiates Screen < 100.00, Methadone Screen 43, Barbiturate Screen 60, Ur Phencyclidine Scrn < 6.00, Amphetamines Screen 130, U Benzodiazepines Scrn < 85, Urine Cocaine Screen > 1000 H, Urine Cannabis Screen > 80.00 H Comments: 11/05/2016 7:38:25 PM 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 (JOSE ANTONIO FISCHER MD) Hand-Off Endorsed To: LARRY WHEELER MD Endorsed Time: 0700 Pending: consult (KO GROSSMAN MD) Hand-Off Endorsed To: JOSE ANTONIO FISCHER MD Endorsed Time: 153 Pending: other (placement) (LARRY WHEELER MD) Departure Departure Condition: Stable Referrals: AISHA SUNG MD (PCP/Family) Departure Forms: Customer Survey General Discharge Information (JOSE ANTONIO FISCHER MD) Departure Disposition: STILL A PATIENT Clinical Impression Primary Impression: Suicidal ideations (KO GROSSMAN MD)
[2016-11-05 19:30] LABS: ABSOLUTE BASOPHIL COUNT 0 /CUMM (0.0-0.2); ABSOLUTE EOSINOPHIL COUNT 0.1 /CUMM (0.0-0.7); ABSOLUTE GRANULOCYTE CT 2.3 /CUMM (1.4-6.5); ABSOLUTE LYMPH COUNT 1.6 /CUMM (1.2-3.4); ABSOLUTE MONOCYTE COUNT 0.5 /CUMM (0.10-0.60); BASOPHIL % 0.4 % (0.0-2.0); EOSINOPHIL % 2.3 % (0-5); GRANULOCYTE % 50.9 % (42.2-75.2); HEMATOCRIT 41.4 % (42-52); MEAN CORPUSCULAR HGB 31.9 PG (27.0-31.0); MEAN CORPUSCULAR HGB CONC 34.3 G/DL (33.0-37.0); MEAN CORPUSCULAR VOLUME 92.8 FL (80.0-94.0); MEAN PLATELET VOLUME 6.7 FL (7.4-10.4); PLATELET COUNT 214 /CUMM (130-400); RBC DISTRIBUTION WIDTH 12.7 % (11.5-14.5); RED BLOOD CELL CT 4.46 /CUMM (4.70-6.10); WHITE BLOOD CELL COUNT 4.6 /CUMM (4.8-10.8)
--- NOTE | 2016-11-05 21:51 | ED PSYCH CRISIS CONSULTATION ---
See Addendum Crisis Consult Basic Assessment Date of Consult: 11/05/16 Responsible Person/Accompanied By: self Insurance Authorization: Insurance #1: Insurance name: LYNETTE CASANOVA Phone number: Policy number: [id number] Group number: Authorization number: ED Provider: Patient's ED Provider: JOSE ANTONIO FISCHER MD Primary Care Physician: Patient's PCP: AISHA SUNG MD PCP's Current Psychiatrist: Keara Tenorio MD Chief Complaint: Psychiatric Related Complaint Patient's Quote: i want to kill myself Present Illness: Pt is a 36 yo male presenting [facility] this afternoon with reports of suicidal ideation with a plan to jump off a bridge. Pt has a long hx of suicidal ideation and several attempts with most recent July 2016 o/d of flexeril. Pt has been inpatient at [facility] Jul 2016 and Aug 2016 and has prior admission to [facility]. Pt is currently in treatment at [facility] since September 2016. He reports SI began again last week due to his recent relapse of alcohol and crack cocaine as well as family issues. He reported not wanting to discuss his family issues. Pt presented as lethargic. He had difficulty keeping eyes open. Appears to be intoxicated consistent with positive cocaine and cannabis levels. Plan to hold pt overnight in ED and re-evaluated by crisis tomorrow when less intoxicated. Patient's Address: [address] [place] [address] Other Phone Number: Who Do You Live With? Patient/Self Family/Informants Interviewed: no family/collateral ID'd Allergies - Coded Allergies: fluoxetine (Intermediate, ANXIETY 11/05/16) bupropion (Mild, Increase in afshan, reported on a previous admission 11/05/16) Current Medications - Scheduled Medications Atorvastatin Calcium 10 MG TABLET 1 TAB PO DAILY cholesterol #90 (Reported) Entered as Reported by PRERNA GAITAN on 08/12/16 193 Divalproex Sodium (Depakote) 500 MG TABLET. 1,500 MG PO QHS MENTAL HEALTH ( Reported) Entered as Reported by JAMILA MELGOZA on 04/18/16 0621 Gabapentin 300 MG CAPSULE 1 CAP PO TID MENTAL HEALTH #90 (Reported) Entered as Reported by NORMA LUKE on 09/25/16 1526 Lisinopril 20 MG TABLET 1 TAB PO DAILY BP #30 (Reported) Entered as Reported by LAURA WETZEL on 03/31/16 1827 Nicotine Polacrilex (Nicotine Lozenge) 4 MG LOZENGE 18-20 GUILLE PO DAILY SMOKING CESSATION #168 LOZENGE (Reported) Entered as Reported by PRERNA GAITAN on 08/12/16 1928 Olanzapine 20 MG TABLET 1 TAB PO QPM MENTAL HEALTH #15 (Reported) Entered as Reported by NORMA LUKE on 09/25/16 1527 Paroxetine HCl 20 MG TABLET 1 TAB PO DAILY MENTAL HEALTH #30 (Reported) Entered as Reported by NORMA LUKE on 09/25/16 1527 Trazodone HCl 100 MG TABLET 2 TAB PO QPM SLEEP 30 Days (Reported) Entered as Reported by LAURA WETZEL on 05/07/16 1658 Laboratory Results: Laboratory Tests 11/05/162: Anion Gap 9, Estimated GFR > 60, BUN/Creatinine Ratio 20.9, Glucose 107 H, Calcium 9.2, Total Bilirubin 0.9, AST 20, ALT 38, Alkaline Phosphatase 46, Total Protein 6.3, Albumin 3.8, Globulin 2.5, Albumin/Globulin Ratio 1.5, CBC w Diff NO MAN DIFF REQ, RBC 4.46 L, MCV 92.8, MCH 31.9 H, RDW 12.7, MPV 6.7 L, Gran % 50.9, Lymphocytes % 35.1, Monocytes % 11.3 H, Eosinophils % 2.3, Basophils % 0.4, Absolute Granulocytes 2.3, Absolute Lymphocytes 1.6, Absolute Monocytes 0.5 , Absolute Eosinophils 0.1, Absolute Basophils 0, PUBS MCHC 34.3, Serum Alcohol < 10.0 11/05/16 1845: Urine Opiates Screen < 100.00, Methadone Screen 43, Barbiturate Screen 60, Ur Phencyclidine Scrn < 6.00, Amphetamines Screen 130, U Benzodiazepines Scrn < 85, Urine Cocaine Screen > 1000 H, Urine Cannabis Screen > 80.00 H (HARLEY HESTER LCSW) Past History Past Medical History Neurological: delerium tremens, restless leg syndrome, ETOH W/D SEIZURES EENT: NONE Cardiovascular: hypertension, hyperlipidemia Respiratory: NONE Gastrointestinal: NONE Hepatic: NONE Renal: NONE Musculoskeletal: LEFT KNEE MENISCAL TEAR Psychiatric: anxiety, bipolar disease, depression, substance abuse, S.I. 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 Pt has insight into his mental health and substance abuse. Pt has had periods of sobriety, stability, and treatment. Physical Limitations (Interventions): None identified. Psychiatric Treatment History Psych Treatment Psychiatric Treatment Yes Inpatient Treatment Yes ([facility]) Outpatient Treatment Yes ([facility]) Reason for Treatment depression/SI polysubstance abuse Dates of Treatment chronic; current [facility] Response to Treatment frequent relapse and need for inpatient hospitalization. Diagnosis by History: Bipolar D/O Polysubstance Abuse Substance Use/Abuse History Drug Use/Abuse Substances Used/Abused Yes Substance Used/Abused Crack Cocaine Last Used today How often daily For how long past week Substance Abuse Treatment Substance Abuse Treatment Past Substance Abuse TX Yes Inpatient Treatment Yes Outpatient Treatment Yes Response to Treatment periods of sobriety but frequent relapse Comments: pt drinking vodka daily past month. pt reports crack cocaine daily past week (HARLEY HESTER LCSW) Current Mental Status Mental Status Orientation: Person, Place, Situation Affect: Depressed, Flat Speech: WNL Neuro-vegetative: Anhedonia, Appetite Increased, Concentration Poor, Energy Decreased, Helpless, Loss of Interest, Sleep Disturbance Appearance Appearance- Dress/Hygiene: hospital scrubs. long hair in pony tail. face sun burnt. pt difficulty maintaining eye contact. Pt kept head in hands. Behaviors Thought Process: WNL Thought Content: WNL Memory: WNL Insight: Fair SI/HI Risk Assessment Past Suicidal Ideation/Attempts Yes Current Suicidal Ideation/Att Yes Past Homicidal Ideation/Att: No Current Homicidal Ideation/Attempts No Degree of Intent: States Intent Danger To: Self Gravely Disabled: Poor Impulse Control, Poor Judgment Risk Factors: high anxiety/distress, history of suicide atmpts, SA/MH hospitalized, substance abuse, isolate/no social support, poor impulse control, lives alone, male, limited support Lethality Ratin PTSD Checklist PTSD Done? patient declined ED Management Sitter: Yes Restraints: No (HARLEY HESTER LCSW) DSM5/PS Stressors/Medical Prob Diagnosis' (DSM 5, Stressors, Medical): Bi-polar d/o depressed, recurrent (F33.2) Cocaine Use D/o severe (F14.20) Alcohol Use D/o severe (F10.20) cannabis Use D/O severe (F12.20) family/children Current GAF: 20 Comments: pt relapsed past month. Daily etoh past month and daily crack cocaine past week. Pt reports Suicidal past week due to family and addiction issues but wouldn't provide further details. (HARLEY HESTER LCSW) Departure Disposition Psych Medical Clearance Date: 11/05/16 Medically Cleared at: 2129 Time Started: 2134 Time Ended: 2214 Psychiatrist Consulted: Mallory PRIETO,Edward Date Disposition Established: 11/05/16 Time Disposition Established: 2214 Plan for Disposition - Modality: H/O re-eval Facility: [facility] Rationale for Disposition: PT reports SI. Pt has a long hx of SI and attempts. Pt reports smoking crack and cannabis today. Tox screen is positive for both. Plan to re-assess pt in morning when less under the influence of substances. Referrals ANA LILIA PRIETO,AISHA (PCP/Family) (HARLEY HESTER LCSW) Addendum Addendum Pt re-evaluated this morning he expresses feeling anxious and depressed. He has a flat affect and speaks in a soft tone. His is tremulous and expresses it is due to his anxiety. Pt continues to express SI with plan to jump off a bridge and attributes his SI to feeling hopeless about relapsing. Pt is unable to plan for safety and would like inpt psych tx. Pt is currently attending [facility] and this clinician has left a message for [facility] Clinical Coordinator Areli Navarro [facility] for tx collaboration and continuity of care. Awaiting to hear back. (NOELLE MICHELLE,KIMBERLYN)
[2016-11-06 14:27] VITALS: BP 127/71
--- NOTE | 2016-11-08 09:29 | ED PSYCHIATRIST/APRN CONSULT ---
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 Pedrito Armstrong of [facility] and case was discussed with her under continuity of care.
== END 2016-11-06 16:25 | disposition other institution (70) ==
LOC: ERH 16:22
PROVIDERS: Emergency Medicine
DX: R45.851 Suicidal ideations (principal); F10.10 Alcohol abuse, uncomplicated; F14.10 Cocaine abuse, uncomplicated; I10 Essential (primary) hypertension; Z87.891 Personal history of nicotine dependence
CPT/HCPCS: 80307; 93005; 93010; G0463; G0480

== ENCOUNTER 2016-11-19 03:54 | Inpatient (IN) | payer OTHER ==
[~2016-11-19] VITALS: Ht 188 cm; Wt 106.6 kg
--- NOTE | 2016-11-19 04:02 | ED PSYCHIATRIC COMPLAINT ---
History of Present Illness General Chief Complaint: Psychiatric Related Complaint Stated Complaint: BIBA OVERDOSE Source: patient, old records, EMS, police Exam Limitations: no limitations Vital Signs & Intake/Output Vital Signs & Intake/Output Vital Signs Date Time Temp Pulse Resp B/P B/P Pulse O2 O2 Flow FiO2 Mean Ox Delivery Rate 11/19 0712 98.0 74 18 108/60 98 Room Air 11/19 0509 75 22 111/55 98 Room Air 11/19 0408 97.9 88 22 125/59 96 Allergies Coded Allergies: fluoxetine (Intermediate, ANXIETY 11/05/16) bupropion (Mild, Increase in afshan, reported on a previous admission 11/05/16) Reconcile Medications Atorvastatin Calcium 10 MG TABLET 1 TAB PO DAILY cholesterol (Reported) Divalproex Sodium (Depakote) 500 MG TABLET.DR 1,500 MG PO QHS MENTAL HEALTH ( Reported) Gabapentin 300 MG CAPSULE 1 CAP PO TID MENTAL HEALTH (Reported) Lisinopril 20 MG TABLET 1 TAB PO DAILY BP (Reported) Nicotine Polacrilex (Nicotine Lozenge) 4 MG LOZENGE 18-20 GUILLE PO DAILY SMOKING CESSATION (Reported) Olanzapine 20 MG TABLET 1 TAB PO QPM MENTAL HEALTH (Reported) Paroxetine HCl 20 MG TABLET 1 TAB PO DAILY MENTAL HEALTH (Reported) Trazodone HCl 100 MG TABLET 2 TAB PO QPM SLEEP (Reported) Triage Nurses Notes Reviewed? yes HPI: Patient brought in by ambulance after stating that he took approximately 80 lisinopril tablets in a suicide attempt. Patient denies coingestion. Patient was recently discharged from here to [facility] for inpatient psychiatric treatment. Patient is unsure when he got out of the hospital. Patient states he has not been taking his medications since he was discharged. Patient denies any homicidal ideations. Patient denies any hallucinations. (DOREEN PRIETO,KO Iniguez) Past History Travel History Traveled to [place] past 21 day No Medical History Any Pertinent Medical History? see below for history Neurological: delerium tremens, restless leg syndrome, ETOH W/D SEIZURES EENT: NONE Cardiovascular: hypertension, hyperlipidemia Respiratory: NONE Gastrointestinal: NONE Hepatic: NONE Renal: NONE Musculoskeletal: LEFT KNEE MENISCAL TEAR Psychiatric: anxiety, bipolar disease, depression, substance abuse, S.I. 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 No (DOREEN PRIETO,KO Iniguez) Review of Systems Review of Systems Constitutional: Reports: no symptoms. EENTM: Reports: no symptoms. Respiratory: Reports: no symptoms. Cardiovascular: Reports: no symptoms. GI: Reports: no symptoms. Genitourinary: Reports: no symptoms. Musculoskeletal: Reports: no symptoms. Skin: Reports: no symptoms. Neurological/Psychological: Reports: see HPI, depressed. Hematologic/Endocrine: Reports: no symptoms. Immunologic/Allergic: Reports: no symptoms. All Other Systems: Reviewed and Negative (DOREEN PRIETO,KO Iniguez) Physical Exam Physical Exam General Appearance: well developed/nourished, mild distress Head: atraumatic Eyes: Bilateral: PERRL, EOMI. Ears, Nose, Throat: normal pharynx, normal ENT inspection, hearing grossly normal Neck: normal inspection, supple Respiratory: normal breath sounds Cardiovascular: regular rate/rhythm Gastrointestinal: soft, non-tender Extremities: normal range of motion Neurological/Psychiatric: no motor/sensory deficits, awake, alert, calm, oriented x 3 Appearance/Memory/Insight: appropriate appearance, appropriate insight Behavoir/Eye Contact/Speech: cooperative, normal speech, good eye contact Thoughts/Hallucinations: normal thought pattern, no apparent hallucination Skin: intact, normal color, warm/dry SAD PERSONS Done? CRISIS CONSULT OBTAINED (DOREEN PRIETO,KO Iniguez) Progress Differential Diagnosis: drug intoxication, drug overdose, drug withdrawal, electrolyte abnormality Plan of Care: Orders Procedure Date/time Status Regular Diet 11/19 B Active Add-on Test (ER Only) 11/19 0659 Active DEPAKOTE LEVEL 11/19 0405 Complete Continuous Observation Monitor 11/19 358 Active URINE DRUGS OF ABUSE 11/19 358 Active ETHANOL 11/19 358 Complete COMPREHENSIVE METABOLIC PANEL 11/19 358 Complete CBC WITHOUT DIFFERENTIAL 11/19 358 Complete ED CRISIS PSYCH CONSULT 11/19 358 Active Laboratory Tests 11/19/16 0714: Methadone Screen Pending, Barbiturate Screen Pending, Ur Phencyclidine Scrn Pending, Amphetamines Screen Pending, U Benzodiazepines Scrn Pending, Urine Cocaine Screen Pending, Urine Cannabis Screen Pending 11/19/16 0405: Anion Gap 13, Estimated GFR > 60, BUN/Creatinine Ratio 15.0, Glucose 80, Calcium 9.7, Total Bilirubin 1.0, AST 28, ALT 52, Alkaline Phosphatase 55, Total Protein 7.2, Albumin 4.5, Globulin 2.7, Albumin/Globulin Ratio 1.7, CBC w Diff NO MAN DIFF REQ, RBC 4.85, MCV 93.0, MCH 31.9 H, RDW 12.6, MPV 6.5 L, Gran % 68.4, Lymphocytes % 23.8, Monocytes % 6.8, Eosinophils % 0.4, Basophils % 0.6, Absolute Granulocytes 4.0, Absolute Lymphocytes 1.4, Absolute Monocytes 0.4, Absolute Eosinophils 0, Absolute Basophils 0, PUBS MCHC 34.3, Valproic Acid 24.9 L, Serum Alcohol 37.0 Hand-Off Endorsed To: AMADO PRIETO,JOSE ANTONIO No Endorsed Time: 0700 Pending: consult (DOREEN PRIETO,KO Iniguez) Comments: 11/19/2016 7:10:37 AM patient 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 (AMADO PRIETO,JOSE ANTONIO No) Departure Departure Disposition: STILL A PATIENT Condition: Stable Clinical Impression Primary Impression: Suicide attempt Referrals: AISHA SUNG MD (PCP/Family) Departure Forms: Customer Survey General Discharge Information (DOREEN PRIETO,KO Iniguez)
--- NOTE | 2016-11-19 04:07 | NUR ---
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
[2016-11-19 04:33] LABS: ABSOLUTE BASOPHIL COUNT 0 /CUMM (0.0-0.2); ABSOLUTE EOSINOPHIL COUNT 0 /CUMM (0.0-0.7); ABSOLUTE LYMPH COUNT 1.4 /CUMM (1.2-3.4); ABSOLUTE MONOCYTE COUNT 0.4 /CUMM (0.10-0.60); BASOPHIL % 0.6 % (0.0-2.0); EOSINOPHIL % 0.4 % (0-5); GRANULOCYTE % 68.4 % (42.2-75.2); HEMATOCRIT 45.1 % (42-52); MEAN CORPUSCULAR HGB 31.9 PG (27.0-31.0); MEAN CORPUSCULAR HGB CONC 34.3 G/DL (33.0-37.0); MEAN PLATELET VOLUME 6.5 FL (7.4-10.4); PLATELET COUNT 299 /CUMM (130-400); RBC DISTRIBUTION WIDTH 12.6 % (11.5-14.5); RED BLOOD CELL CT 4.85 /CUMM (4.70-6.10); WHITE BLOOD CELL COUNT 5.9 /CUMM (4.8-10.8)
--- NOTE | 2016-11-19 05:09 | NUR ---
PT IS SLEEPING NO DISTRESS, PT ANSWERS QUESTIONS APPROP. PT ON MONITOR SINUS NO ECTOPY.
--- NOTE | 2016-11-19 07:05 | NUR ---
REMAINS ASLEEP, EASILY AROUSABLE, NO DISTRESS MONITOR SINUS.
--- NOTE | 2016-11-19 07:15 | NUR ---
SLEEPING ON STRETCHER. NSR ON MONITOR. RR WNL. LAST BP 108/60. SITTER IN ATTENDANCE.
--- NOTE | 2016-11-19 08:15 | NUR ---
CRISIS AT BEDSIDE.
--- NOTE | 2016-11-19 08:33 | NUR ---
ORDERED FINGER FOOD TRAY.
--- NOTE | 2016-11-19 08:33 | ED PSYCH CRISIS CONSULTATION ---
See Addendum Crisis Consult Basic Assessment Date of Consult: 11/19/16 Insurance Authorization: Insurance #1: Insurance name: LYNETTE CASANOVA Phone number: Policy number: [id number] Group number: Authorization number: ED Provider: Patient's ED Provider: DOREEN PRIETO,KO Iniguez Primary Care Physician: Patient's PCP: AISHA SUNG MD PCP's Current Psychiatrist: Keara Tenorio MD Chief Complaint: Psychiatric Related Complaint Patient's Quote: "I'm here for a suicide attempt." Present Illness: 36 M BIBA 11/19/16 0407 on PEER with CC suicide attempt by #80 lisinopril 20 mg, one pint vodka, crack. Tox 11/19/16 0405: Valproic acid 24.9, ETOH 37.0, bernzo 201, cocaine > 1000, cannabis 60.8 VS 11/19/16 0712: 108/60, 74HR, 98.0, 18RR, 98% RA Chemistry WNL. Last EKG 11/05/16 1641: 108ST, QTc 461 mS The patient reports he last took his psychotropic medications two days ago, or probably 11/17/16. Current meds from Dr. Tenorio, psychiatrist, per claim history: gabapentin 300 mg PO 3X/day for mood/cravings olanzapine 10 mg PO daily paroxetine 20 mg PO daily trazodone 100 mg PO bedtime Depakote ER 500 mg PO daily Patient last presented to our ED 11/05/16, and was transferred to [facility] inpatient psych for SI, discharging on 11/12/16, when he started the evening dual IOP program. He failed to appear for IOP on 11/13/16; the clinician notified the patient's mother and had the PD make a welfare check. The patient was not at home, and the mother spoke with him later, and reported the patient had gone to work. 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 Patient's Address: [address] [place] [address] Other Phone Number: Who Do You Live With? Patient/Self Family/Informants Interviewed: Left for mother, Mariann Espinoza, , 11/19/16, 1005. Expect return call. Allergies - Coded Allergies: fluoxetine (Intermediate, ANXIETY 11/05/16) bupropion (Mild, Increase in afshan, reported on a previous admission 11/05/16) Laboratory Results: Laboratory Tests 11/19/16 0714: Urine Opiates Screen < 100.00, Methadone Screen 43, Barbiturate Screen 66, Ur Phencyclidine Scrn < 6.00, Amphetamines Screen < 100, U Benzodiazepines Scrn 201 H, Urine Cocaine Screen > 1000 H, Urine Cannabis Screen 60.80 H 11/19/16 0405: Anion Gap 13, Estimated GFR > 60, BUN/Creatinine Ratio 15.0, Glucose 80, Calcium 9.7, Total Bilirubin 1.0, AST 28, ALT 52, Alkaline Phosphatase 55, Total Protein 7.2, Albumin 4.5, Globulin 2.7, Albumin/Globulin Ratio 1.7, CBC w Diff NO MAN DIFF REQ, RBC 4.85, MCV 93.0, MCH 31.9 H, RDW 12.6, MPV 6.5 L, Gran % 68.4, Lymphocytes % 23.8, Monocytes % 6.8, Eosinophils % 0.4, Basophils % 0.6, Absolute Granulocytes 4.0, Absolute Lymphocytes 1.4, Absolute Monocytes 0.4, Absolute Eosinophils 0, Absolute Basophils 0, PUBS MCHC 34.3, Valproic Acid 24.9 L, Serum Alcohol 37.0 (AYSHA CAT APRN) Current Medications - Scheduled Medications Atorvastatin Calcium 10 MG TABLET 1 TAB PO DAILY cholesterol #90 (Reported) Entered as Reported by PRERNA GAITAN on 08/12/16 1937 Divalproex Sodium (Depakote) 500 MG TABLET.DR 1,500 MG PO QHS MENTAL HEALTH ( Reported) Entered as Reported by JAMILA MELGOZA on 04/18/16 0621 Gabapentin 300 MG CAPSULE 1 CAP PO TID MENTAL HEALTH #90 (Reported) Entered as Reported by NORMA LUKE on 09/25/16 1526 Lisinopril 20 MG TABLET 1 TAB PO DAILY BP #30 (Reported) Entered as Reported by LAURA WETZEL on 03/31/16 1827 Olanzapine 20 MG TABLET 1 TAB PO QPM MENTAL HEALTH #15 (Reported) Entered as Reported by NORMA LUKE on 09/25/16 1527 Paroxetine HCl 20 MG TABLET 1 TAB PO DAILY MENTAL HEALTH #30 (Reported) Entered as Reported by NORMA LUKE on 09/25/16 1527 Trazodone HCl 100 MG TABLET 2 TAB PO QPM SLEEP 30 Days (Reported) Entered as Reported by LAURA WETZEL on 05/07/16 1658 (JEFFY MOTT LCSW) Past History Past Medical History Neurological: delerium tremens, restless leg syndrome, ETOH W/D SEIZURES EENT: NONE Cardiovascular: hypertension, hyperlipidemia Respiratory: NONE Gastrointestinal: NONE Hepatic: NONE Renal: NONE Musculoskeletal: LEFT KNEE MENISCAL TEAR Psychiatric: anxiety, bipolar disease, depression, substance abuse, S.I. OVERDOSE suicide attempt X 15 events Endocrine: NONE Blood Disorders: NONE Cancer(s): NONE PARQUETRY LAYER/Reproductive: NONE Past Surgical History Surgical History: hernia repair-umbilical Psychosocial History Strengths/Capabilities: Pt is able to articulate his wants and needs. Pt has insight into his mental health and substance abuse. Pt has had periods of sobriety, stability, and treatment. Physical Limitations (Interventions): None identified. Psychiatric Treatment History Psych Treatment Psychiatric Treatment Yes Inpatient Treatment Yes Outpatient Treatment Yes Location of Treatment (Last IOP) [facility] (Last inpatient) Reason for Treatment Bipolar d/o, depression, drug and alcohol abuse Dates of Treatment IOP intake 11/12/16, and did not appear after that. [facility] Response to Treatment UNK Diagnosis by History: By history: F32.9 unspecified depressive d/o F31.31 Bipolar I depressed, mild F10.20 Alcohol disorder,severe F 12.20 Cannabis use d/o, moderate Substance Use/Abuse History Drug Use/Abuse Substances Used/Abused Yes Substance Used/Abused Alcohol Last Used 11/19/16 early AM How much used/taken One pint vodka How often Daily since 11/12/16 Substance Abuse Treatment Substance Abuse Treatment Past Substance Abuse TX Yes Inpatient Treatment Yes Outpatient Treatment Yes Location of Treatment Reason for Treatment Alcohol and cannabis use disorders Dates of Treatment 11/12/16 Response to Treatment UNK (AYSHA CAT APRN) Current Mental Status Mental Status Orientation: Person, Place, Situation Affect: Constricted, Flat Speech: Soft Neuro-vegetative: Anhedonia, Appetite Decreased, Energy Decreased, Helpless, Loss of Interest Behaviors Thought Process: Thought Blocking Thought Content: Confabulations, Thought Blocking Memory: Impaired Insight: Poor SI/HI Risk Assessment Past Suicidal Ideation/Attempts Yes Current Suicidal Ideation/Att No Past Homicidal Ideation/Att: No Current Homicidal Ideation/Attempts No Degree of Intent: None (Patient made an impulsive act) Danger To: Self Gravely Disabled: Lack of Insight, Poor Impulse Control, Poor Judgment Risk Factors: history of suicide atmpts, SA/MH hospitalized, substance abuse, poor impulse control, lack of outcome concern, lives alone, male, limited support Lethality Ratin PTSD Checklist PTSD Score: PTSD Score: Response Value Disturbing memories,thoughts,images of stressful experience? Moderately 3 Disturbing dreams of stressful experience from past? Quite a bit 4 Suddenly acting/feeling as if reliving stressful experience? Extremely 5 Unpleasant feeling when reminded of stressful experience? Extremely 5 Physical reactions when reminded of stressful experience? Extremely 5 Avoid thinking/talking of stressful exp. to avoid reactions? Extremely 5 Avoid activities/situations that remind of stressful exp.? Extremely 5 Trouble remembering important parts of stressful experience? Not at all 1 Loss of interest in things that you used to enjoy? Quite a bit 4 Feeling distant or cut off from other people? Extremely 5 Feeling emotionally numb/unable to love those close to you? Not at all 1 Feeling as if your future will somehow be cut short? Extremely 5 Trouble falling or staying asleep? Extremely 5 Feeling irritable or having angry outbursts? Quite a bit 4 Having difficulty concentrating? Quite a bit 4 Being super alert or watchful on guard? Not at all 1 Feeling jumpy or easily startled? Not at all 1 Total 63 ED Management Sitter: Yes Restraints: No (AYSHA CAT APRN) DSM5/PS Stressors/Medical Prob Diagnosis' (DSM 5, Stressors, Medical): F32.9 unspecified depressive d/o F31.31 Bipolar I depressed, mild F10.20 Alcohol disorder,severe F12.20 Cannabis use d/o, moderate Current GAF: 21 (AYSHA CAT APRN) Departure Disposition Plan for Disposition - Modality: Inpatient Psychiatry Rationale for Disposition: Planned/impulsive suicide attempt by polypharmacy. Referrals AISHA SUNG MD (PCP/Family) (AYSHA CAT APRN) Addendum Addendum The patient is in need of an inpatient admission, after taking a significant overdose. His clinical was faxed out to [facility], [facility], [facility], [facility], [facility], [facility] and [facility]. He was denied at every place his clinical was faxed to, with the exception of [facility] and [facility], who state that they no longer have staff and / or beds. There are no other available beds in the state at this time, he will be held over for an ongoing bed search. (TIERA MICHELLE,JEFFY)
--- NOTE | 2016-11-19 10:00 | NUR ---
OK TO TAKE PT OFF MONITOR AND MOVE TO AREA PER DR FISCHER. WILL CONTINUE TO MONITOR BP. PT AMBLUATED TO ROOM 15 WITH SITTER AND STEADY GAIT. AWAITING DISPO/POC. Informed waiting has been performed.
--- NOTE | 2016-11-19 11:15 | NUR ---
ASSUMED CARE OF THIS PT FROM DEAN MONTERO. PT LYING ON BED EATING LUNCH, REPORTING ANXIETY AND REQUESTING ANTI-ANXIETY MEDICATION. WILL MAKE DR FISCHER AWARE
--- NOTE | 2016-11-19 12:28 | NUR ---
PT MEDICATED WITH NEURONTIN 300MG, PAXIL 20MG AND PRIVINIL 20MG PER EMAR
--- NOTE | 2016-11-19 13:40 | NUR ---
PT ASLEEP AT THIS TIME. RESPIRATIONS EQUAL AND UNLABORED. SITTER AT DOOR.
--- NOTE | 2016-11-19 14:46 | NUR ---
PT ASLEEP ON BED, RESPIRATIONS EQUAL AND UNLABORED. SITTER AT DOOR.
--- NOTE | 2016-11-19 16:16 | NUR ---
PT MEDICATED WITH NEURONTIN 300MG PER EMAR
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
--- NOTE | 2016-11-19 16:45 | NUR ---
PT MEDICATED WITH MULTIVITAMIN, FOLIC ACID, VITAMIN B1, REVIA AND LIPITOR PER EMAR. PT'S SKIN IS FLUSHED AND WARM, HE REPORTS ANXIETY, HEADACHE AND NAUSEA.
[2016-11-19 16:46] VITALS: BP 124/60
--- NOTE | 2016-11-19 16:51 | NUR ---
PT MEDICATED WITH ATIVAN 2MG PO PER EMAR FOR CIWA = 13. PT EATING DINNER, IS CALM AND COOPERATIVE. SITTER AT DOOR.
--- NOTE | 2016-11-19 18:01 | NUR ---
Per Dr. Fleming admit to [facility] for safety and symptom stability. Case discussed with DEAN Patel and Dr. Nicholson.
[2016-11-19 18:43] VITALS: BP 136/84
--- NOTE | 2016-11-19 18:53 | NUR ---
Admitted from ED on [facility]EC s/p SA reported taking multiple Lisinipril prior to coming into ED. Reports drinking vodka 1 pint daily and smoking crack cocaine and cannabis. Med hx of knee pain and herniated disk in neck.will be monitored on CIWA.
[2016-11-19 19:07] VITALS: BP 136/84
[2016-11-19 20:35] VITALS: BP 117/66
[2016-11-19 20:41] VITALS: BP 117/66
--- NOTE | 2016-11-19 21:17 | History & Physical ---
General Information and HPI MD Statement: I have seen and personally examined MAYO SÁNCHEZ and documented this H&P. The patient is a 36 year old M who presented with a patient stated chief complaint of [drug overdose, SI]. Source of Information: patient Exam Limitations: no limitations History of Present Illness: 36 yo M with h/o bipolar disorder/ depression, anxiety, alcohol dependence, alcohol withdrawal seizures/ DT's, polysubstance abuse, HTN, HLD, chronic back pain, multiple suicide attempts via OD, last admitted for alcohol abuse and SI in Jul 2016, is now admitted to Inpatient Psychiatry for intentional drug (80 lisinopril pills of 20 mg) overdose in a suicide attempts. Depression++. Please refer to Psych H and P for further details. He reports, he was recently admitted to [facility] but does not remember exact dates. Unclear if he has been taking all of his medical and psychiatric meds. On my evaluation, patient denied any symptoms of nausea, vomiting, chest pain, fever/chills, abdominal pain, diarrhea or urinary symptoms. He does report cough with minimal yellow phlegm today. Denies dyspnea. He consumes 1 pint of Vodka daily, smokes crack cocaine and uses Cannabis as well. His last alcohol withdrawal seizure was about 1 year ago. Allergies/Medications Allergies: Coded Allergies: fluoxetine (Intermediate, ANXIETY 11/05/16) bupropion (Mild, Increase in afshan, reported on a previous admission 11/05/16) Home Med list Atorvastatin Calcium 10 MG TABLET 1 TAB PO DAILY cholesterol (Reported) Divalproex Sodium (Depakote) 500 MG TABLET.DR 1,500 MG PO QHS MENTAL HEALTH ( Reported) Gabapentin 300 MG CAPSULE 1 CAP PO TID MENTAL HEALTH (Reported) Lisinopril 20 MG TABLET 1 TAB PO DAILY BP (Reported) Olanzapine 20 MG TABLET 1 TAB PO QPM MENTAL HEALTH (Reported) Paroxetine HCl 20 MG TABLET 1 TAB PO DAILY MENTAL HEALTH (Reported) Trazodone HCl 100 MG TABLET 2 TAB PO QPM SLEEP (Reported) Compliance With Home Meds: POOR Past History Travel History Traveled to [place] past 21 day No Medical History Neurological: delerium tremens, restless leg syndrome, ETOH W/D SEIZURES EENT: NONE Cardiovascular: hypertension, hyperlipidemia Respiratory: NONE Gastrointestinal: NONE Hepatic: NONE Renal: NONE Musculoskeletal: LEFT KNEE MENISCAL TEAR Psychiatric: anxiety, bipolar disease, depression, substance abuse, S.I. OVERDOSE suicide attempt X 15 events Endocrine: NONE Blood Disorders: NONE Cancer(s): NONE TUMBLER PLATER/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 Home Who Do You Live With? self Services at Home: None Primary Language: Mongolian Smoking Status: Current Everyday Smoker ETOH Use: heavy use Illicit Drug Use: cocaine, marijuana Functional Ability ADLs Independent: dressing, eating, toileting, bathing. Ambulation: independent IADLs Independent: shopping, housework, finances, food prep, telephone, transportation , medication admin. Review of Systems Review of Systems Constitutional: Denies: chills, fever, malaise, weakness. EENTM: Reports: no symptoms. Cardiovascular: Denies: chest pain, orthopena, palpitations, syncope. Respiratory: Reports: cough, sputum production. Denies: orthopnea, short of breath, wheezing. GI: Denies: abdominal pain, constipation, diarrhea, nausea, vomiting. Genitourinary: Denies: dysuria, frequency, hematuria. Musculoskeletal: Reports: no symptoms. Neurological/Psychological: Reports: see HPI. All Other Systems: Reviewed and Negative Exam & Diagnostic Data Last 24 Hrs of Vital Signs/I&O Vital Signs Date Time Temp Pulse Resp B/P B/P Pulse O2 O2 Flow FiO2 Mean Ox Delivery Rate 11/19 2040 97.6 72 117/11/19 203 97.6 72 117/66 11/19 1907 97.8 62 136/84 11/19 1843 97.8 62 136/84 11/19 1646 97.0 65 18 124/60 11/19 1646 97.0 65 18 124/60 95 Room Air 11/19 1447 98.0 66 18 118/68 97 Room Air 11/19 1249 97.8 66 18 92/50 96 Room Air 11/19 1056 97.8 70 18 133/64 98 Room Air 11/19 0924 98.0 64 18 123/60 98 Room Air 11/19 0833 61 20 108/55 98 Room Air 11/19 0712 98.0 74 18 108/60 98 Room Air 11/19 0509 75 22 111/55 98 Room Air 11/19 0408 97.9 88 22 125/59 96 Intake & Output 11/19 1600 11/19 0800 11/19 0000 Intake Total Output Total Balance Patient 235 lb Weight Weight Reported by Patient Measurement Method Physical Exam General Appearance Alert, Oriented X3, Cooperative, No Acute Distress Skin No Breakdown, No Significant Lesion HEENT Atraumatic, PERRLA, EOMI, Mucous Membr. moist/pink Neck Supple Cardiovascular Regular Rate, Normal S1, Normal S2, No Murmurs Lungs Clear to Auscultation, Normal Air Movement Abdomen Normal Bowel Sounds, Soft, No Tenderness Neurological Exam Findings: Normal Gait, Normal Speech, Strength at 5/5 X4 Ext, Sensation Intact, Cranial Nerves 3-12 NL, Reflexes 2+ Cranial Nerves II through XII: Grossly intact Extremities No Edema, Normal Pulses, No Tenderness/Swelling Last 24 Hrs of Labs/Dieter: Laboratory Tests 11/19/16 0714: Urine Opiates Screen < 100.00, Methadone Screen 43, Barbiturate Screen 66, Ur Phencyclidine Scrn < 6.00, Amphetamines Screen < 100, U Benzodiazepines Scrn 201 H, Urine Cocaine Screen > 1000 H, Urine Cannabis Screen 60.80 H 11/19/16 0405: Anion Gap 13, Estimated GFR > 60, BUN/Creatinine Ratio 15.0, Glucose 80, Hemoglobin A1c Pending, Calcium 9.7, Total Bilirubin 1.0, AST 28, ALT 52, Alkaline Phosphatase 55, Total Protein 7.2, Albumin 4.5, Globulin 2.7, Albumin/ Globulin Ratio 1.7, Triglycerides 97, Cholesterol 223 H, LDL Cholesterol, Calc 152 H, HDL Cholesterol 52, Cholesterol/HDL Ratio 4, TSH &T3 &Free T4 Intrp 1.660, CBC w Diff NO MAN DIFF REQ, RBC 4.85, MCV 93.0, MCH 31.9 H, RDW 12.6, MPV 6.5 L, Gran % 68.4, Lymphocytes % 23.8, Monocytes % 6.8, Eosinophils % 0.4, Basophils % 0.6, Absolute Granulocytes 4.0, Absolute Lymphocytes 1.4, Absolute Monocytes 0.4, Absolute Eosinophils 0, Absolute Basophils 0, PUBS MCHC 34.3, Valproic Acid 24.9 L, Serum Alcohol 37.0 Diagnostic Data EKG Results -- CXR Results -- Assessment/Plan Assessment: 36 yo M admitted for intentional drug overdose, suicide attempt, depression and alcohol dependence. 1. Management as per psych team. Continue CIWA and ativan for alcohol detox. 2. Smoking cessation counseling. Nicotine gum. 3. Hypretension. Patient overdosed on 80 pills of lisinopril 20 mg each on 11/18. Overnight in the ER, his BP had been stable, but he was hypotensive to SBP 90's at one point. His lisinopril had already been initiated by ER team. His BP is now in the range of 110-130's/ 55-85. Will hold off on lisinopril for now, monitor BP off lisinopril. 4. Hyperlipidemia. Continue atorvastatin. DVT ppx - low risk, early ambulation. As Ranked By This Provider Problem List: 1. ETOH abuse 2. Suicide attempt 3. Drug overdose, intentional Miscellaneous Miscellaneous Documentation Attending Case Discussed With: Basim Falk MD Primary Care Physician: ARLIN SUNG MDEETHA Patient sees these Specialists -- Level of Patient Care: MARICARMEN Dickson MD Review Statement Attending Statement Attending MD Statement: examined this patient, discuss w/resident/PA/LIFE ENRICHMENT DIRECTOR
--- NOTE | 2016-11-19 21:17 | Admission Certification ---
Admission Certification Certification Statement - As attending physician, I certify that at the time of - admission, based on clinical presentation, severity of - symptoms, need for further diagnostic testing and - therapeutic interventions, and risk of adverse outcomes - without in-hospital treatment, in my clinical assessment, - this patient requires an acute hospital stay for a minimum - of two nights or longer. I have also considered psychsocial - factors such as support system, advanced age, financial - issues, cognitive issues, and failed out-patient treatments, - past re-admission history, safety of patient, and lack of - compliance as applicable. Specific rationale supporting this admission is: Intentional drug overdose, suicide attempt, depression, alcohol dependence, polysubstance abuse.
--- NOTE | 2016-11-19 22:09 | NUR ---
PATIENT ISOLATIVE IN ROOM ALL EVENING; APPEARED AT NURSING STATION FOR VITAL SIGNS; PATIENT WAS SEEN BY DR. RODRIGUEZ FOR H&P; VITAL SIGNS HAVE BEEN STABLE; PATIENT DENIES S/I AT THIS TIME; MOOD SUBDUED.
[2016-11-19 22:21] VITALS: BP 133/55
[2016-11-20] VITALS (8 sets, daily range): BP systolic 115–144; BP diastolic 60–75
--- NOTE | 2016-11-20 07:01 | NUR ---
PATIENT SLEPT ALL NIGHT.
--- NOTE | 2016-11-20 13:20 | NUR ---
PT WAS ISOLATIVE FOR MOST OF THE MORNING AND RETREATED TO ROOM, QUIET, CALM AND OVERALL COOPERATIVE YET, WAS MORE PRESENT AND ACTIVE TOWARDS THE AFTERNOON, AND ATTENDED SOME GROUPS, MEDICATION COMPLIANT AND REPORTED + SLEEP AND OK MOOD, + APPETITE.
--- NOTE | 2016-11-20 13:21 | CPS MD/APRN INITIAL ASSE PSYCH ---
Psychiatric Admission Handle Finisher's Note Reviewed: Yes Patient Seen and Examined: Yes Identifying Information: This is the 4th 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 Chief Complaint: "I'm here for a suicide attempt." Reaction to Hospitalization: seeking admission to hospital History of Present Illness Onset of Illness: Patient was most recently discharged from [facility] on 11/12/2016 with plan for return to [facility] from which he had been referred to [facility] for admission on 11/06/2016. 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 He described drinking, smoking crack and Marijuana, for the past 1+ week (urine tox. screen in E.D. REGIONAL TRUCK DRIVER showed intoxication with cocaine and cannabis; LITA was only 37 and benzodiazepine concentration low). Patient described taking an impulsive overdose of #80 lisinopril tablets in a suicide attempt ("I don't want to live anymore...life is not worth living...") but EMS told E.D. triage patient had taken the OD only "10 minutes" prior to arrival. Circumstances Leading to Admission: (see above under Onset of Illness) failed to follow through with referral back to the [facility] upon discharge from [facility] on 11/12/2016. Problem(s) Justifying Need for Admission: recently overdosed on a very large number of pills (approximately #80) in self- described suicide attempt; has history of prior suicidality and overdoses and extended period of instability out of hospital Other HPI: Patient had been treated on [facility] most recently, 02/23-03/08/2016 (see initial assessments and discharge summary in the electronic medical record for details), and referred directly/seamlessly to residential rehab at [facility], and then from there back to [facility] in 03/2016. Past Psychiatric History Past Diagnosis(es)- if any: diagnoses at discharge from [facility], 03/08/2016: Bipolar Disorder, Depressed Alcohol Use Disorder, severe Cocaine Use Disorder Cannabis Use Disorder Opioid Use Disorder; ?in remission Stimulant Use Disorder (cocaine/amphetamine; latter apparently in remission) and: Hypertension Restless Leg Syndrome Past Precipitating Factors- if any: --compulsive resumption of crack cocaine use --compulsive resumption of alcohol use --separation from two of his minor children who moved to [place] with their mother last year - Include inpatient and outpatient treatment Treatment History: When patient was first admitted to [facility], 07/17-07/24/2015 (see initial assessments and discharge summary in the electronic medical record for details) he already had a long history of "15" admissions to [facility], as well as to [facility] and [facility], had recently been to [facility] and outpatient at [facility]. He had been previously addicted to heroin and in methadone maintenance treatment. History of Suicide Attempts or Gestures multiple previous overdoses Substance Abuse History: extensive polysubstance use/abuse history, most recently alcohol and crack cocaine but also extensively abused heroin, and had a history of benzodiazepine and amphetamine abuse; claimed to have been "clean" for 7-8 months prior to shortly before 06/[address] [facility] admission Allergies: Coded Allergies: fluoxetine (Intermediate, ANXIETY 11/05/16) bupropion (Mild, Increase in afshan, reported on a previous admission 11/05/16) Home Med List: medications from last [facility] list (upon discharge from [facility]) on 11/13/2016: Zyprexa, 20mg HS Depakote ER, 1,500mg HS Paxil, 20mg daily Neurontin, 300mg 3x/day trazodone, 200mg HS naltrexone, 50mg daily also: atorvastatin, 10mg/day lisinopril, 20mg/day - Include any medical condition(s) that may - impact the patient's recovery/remission Past History Medical History Neurological: delerium tremens, restless leg syndrome, ETOH W/D SEIZURES EENT: NONE Cardiovascular: hypertension, hyperlipidemia Respiratory: NONE Gastrointestinal: NONE Hepatic: NONE Renal: NONE Musculoskeletal: LEFT KNEE MENISCAL TEAR Psychiatric: alcohol dependence, anxiety, bipolar disease, depression, insomnia, IV drug abuse, opioid dependence, substance abuse, S.I. 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: NONE History of MRSA: No History of VRE: No History of CDIFF: No Isolation History: Standard Surgical History Surgical History: knee surgery; L meniscal tear Psychiatric Family/Social Hx Family History Psychiatric Illness: mother anxiety and depression Substance Use: father alcohol abuse Suicides: unknown Other Family History: noncontributory at this time Social History Living Situation: (see above under Indentifying Information) Significant Relationships (family/friends): --has 4 minor children but not close to any of them and 2 live in [place] with their mother Education: graduated high school 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 - #1 Recognizing dangerous situations. - #2 Coping Skills. - #3 Basic information about quitting. Status of Tobacco Cessation Counseling: #1, #2 AND #3 Completed Cessation Med Status: Nicotine Gum Ordered Alcohol Screening - ETOH screen POS if BAL >=80 or Audit-C>= M4/F3 Audit-C Score from Diag Assess: 12 Blood Alcohol Level: LITA = 37.0 Alcohol Use Screening Results: Pos per Audit C &/or BAL - If ETOH counseling indicated - the following topics are required. - #1 Express concern about the patient's - drinking at unhealthy levels, include informing - of national norms for moderate drinking: - men <= 14 drinks/week, max 4 drinks/occasion - women <= 7 drinks/week, max 3 drinks/occasion - #2 Providing feedback, including linking alcohol to - negative physical effects (liver injury, hypertension) - negative emotional effects (relationship problems and - depression) - negative occupational consequences (reduced work - performance) - #3 Advising the patient to abstain from alcohol or - to drink below national norms for moderate drinking - (as listed above). Status of ETOH Use Counseling: #1, #2 AND #3 Completed. Metabolic Screening - Screen if on a Neuroleptic Medication - Metabolic screening should include: - Blood Pressure, BMI, Glucose or Hgb A1c, & a - Lipid profile from within the past 365 days. Metabolic Screening () Not Applicable, patient not on a neuroleptic. OR ([x]) Patient on a neuroleptic(s) . Enter below results for Glucose or Hemoglobin A1C, and lipid panel if obtained during the last 365 days. BMI: Blood Pressure: 138/68 Laboratory Results (If applicable): [x] glucose = 80 (all drawn on 11/19/2016) glycos hgb A1c = 5.1 cholesterol = 223 tryglycerides = 97 HDL = 52 LDL = 152 Exam and Plan Mental Status Examination Ambulation Status: without assistance Appearance: large, somewhat overweight but muscled Attitude towards examiner: initially rather neutral but more open and friendly as interview progressed Psychomotor activity: slightly slowed down (?contributed to by fatigue and recent overdose) Behavior: appropriate, participated fully in interview process Quality of speech: somewhat slow, soft and deliberate Affect: constricted Mood: dysphoric but not irritable at time of interview Suicidal Ideation: denied at this time Homicidal Ideation: denied Hallucinations: denied and no evidence of Paranoid/Delusional Material: no evidence of paranoia or delusions Difficulties with thought organization: not noted Insight: very limited Judgment: fair at this time Orientation: full Cognition: intact Memory Function: grossly intact; though somewhat vague concerning some details, this would appear to be more due to some guarding/hesitency to divulge than lack of memory function Estimate of intellectual functioning: average Assets/Strengths Patient Identified Assets/Strengths: --loves his children and wishes he could provide for them better than he has up until now --motivated to continue trying to get/stay clean --wants to work Impression/Plan Impression and Plan: Though patient has apparently carried a diagnosis of bipolar disorder for many years he denies having ever been on a full clinical trial of [place]. His life has gone progressively downhill, accelerated by ongoing abuse of alcohol and crack cocaine. When I met patient once previously at the time of his [facility] admission in 06/2015, he and I had discussed a High [place] trial, he had agreed and began treatment in hospital for a few days; unfortunately, the day after discharge he overdosed on Neurontin and [place] and was readmitted, not restarted on Li+ subsequently. Venecia lr deserves a chance to see if High Forest can be of benefit in reducing impulsivity, helping to stabilize moods and decrease risk of future suicide attempts/suicidality. Patient would be best served by a residential rehab program once stabilized on High Forest. - Include all active medical diagnosis that require tx DSM 5 Diagnosis(es): Bipolar I Disorder; MRE Depressed with suicidality R/O irritable mixed state (not evident thus far) Alcohol Use Disorder, severe Cocaine (crack) Use Disorder, severe hx of polysubstance Use Disorder, including heroin, cannabis, benzodiazepines and amphetamines - Initial Tx Plan for Active Psych & Medical Conditions Treatment Plan: --after once again thoroughly discussing use of High [place] and describing R/B/SE, with patient, will reinstitute Li+ trial (with proper post-discharge support) --will monitor for alcohol withdrawal (using CIWA) and treat any significant related symptoms, particularly given reported history of alcohol withdrawal seizure(s) and D.T.'s --will seek out some involved relative or friend for a "family" meeting during this admission --will investigate what options this patient has for residential rehab, the longer the program the better --if anti-hypertensive medication therapy is required, will avoid the reintroduction of lisinopril or other TIFFANI inhibitors --will initially treat high (?panic) anxiety with Klonopin but with patient's understanding that this is only temporary (until dose of Paxil can be increased and fully effective) and that this drug as a benzodiazepine is potentially addictive AND can increase risks of alcoholic relapse - Factors that would help patient function - in a less restrictive setting. Factors: --uncomplicated alcohol withdrawal --prompt acceptance at a residential rehab program --rapid achievement of therapeutic High Forest level without limiting side effects
--- NOTE | 2016-11-20 14:20 | SOCIAL WORKER TX PLAN PSYCH ---
Treatment Plan - Please Document: - Evidence that there is ongoing collaboration between - the patient and the interdisciplinary team, - including the patient's active participation and - responsibility for engaging in the treatment regimen, - and that the treatment plan is individualized and - relevant to the patient's conditions. - Treatment plan should reflect documentation indicating - that all active therapeutic efforts are included. Strengths/Capabilities: The patient has good insight into his need for treatment and is motivated to attend. Physical Limitations (Interventions): None identified. Patient Identified Trmt Goals: "I need to go to rehab" Discharge Plan: Rehab Problem/Goals #1 Problem #1: suicidal ideation Goal (Short Term): Pt will attend 2 or more groups today Goal (Wool Merchant): Be free of suicidal thoughts/attempts Develop 3 coping skills to deal with depression Interventions: Pt will be offered medication management by SECURITIES SUPERVISOR or psychiatrist Pt will be offered group therapy including relaxation, accupuncture, coping skills, focus and symptom management coke worker will hold family/support meeting and coordinate after care coke worker will help pt identify individual strenghts and resources to help him manage symptoms and learn to cope in the community Modalities: group and indivdual Problem/Goals #2 Problem #2: Polysubstance Goal (Short Term): Identify 3 triggers for use Identify 3 sober supports i.e. contact sponsor as needed/daily on unit Identify 3 coping skills Goal (Wool Merchant): I will have family meeting on unit during my hospitalization I will attend all AA groups on unit I will Identify 3 coping skills for cravings to use I will set up aftercare for dual diagnosis program to address both mental health and substance abuse concerns Interventions: Pt will be offered group therapy including relaxation, accupuncture, coping skills, focus and symptom management, relaspe prevention coke worker will hold family/support meeting and coordinate after care coke worker will help pt identify individual strengths and resources to help him stay sober in the community Modalities: group and individual DSM5/PS Stressors/Medical Prob Diagnosis' (DSM 5, Stressors, Medical): F31.9 Unspecified Bipolar disorder (By History) F10.20 Alcohol Use Disorder F14.20 Stimulant use disorder- Cocaine type F12.20 Cannabis use Disorder Current GAF: 28 Treatment Team - Responsibilities of members of the treatment team include: - Medication Management- MD or SECURITIES SUPERVISOR - Medication Administration and Monitoring- Nurse - Group Therapy- Occupational Therapist - 1:1 Therapy,Disch Planning,family involvement-Commercial Hvac Service Technician
--- NOTE | 2016-11-20 14:20 | SOCIAL WORKER PROG NOTE PSYCH ---
Social Work Progress Note Progress Note Pt signed releases for Mom and his sponsor. Pt reports he has been living "in hell" for the past year and he can not remember a 6 month period of time that he didn't come inpatient. He is dually diagnosed, and is at risk of self harm due to inability to stabilize for long period of times. Pt reports he can not recall a time in the past decade that he had sustained his sobriety. Pt is currently working with a sponsor and states he needs to go into [facility] recovery based treatment. Pt reports he is feeling depressed and tired.
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
--- NOTE | 2016-11-20 21:23 | NUR ---
PT IS VISIBLE ON UNIT, WATCHING TV AND SOCIALIZING WITH PEERS. ATTENDED WRAP UP MEETING. COOPERATIVE AND COMPLIANT WITH STAFF. NO COMPLAINTS OR SI REPORTED. PT HAS A STABLE MOOD AND FULL RANGE AFFECT.
[2016-11-21] VITALS (8 sets, daily range): BP systolic 123–137; BP diastolic 64–92
--- NOTE | 2016-11-21 06:10 | NUR ---
PT IN BEHAVIORAL CONTROL. PT SLEPT.
--- NOTE | 2016-11-21 12:49 | NUR ---
PT IS PRESENT ON THE UNIT AND ATTENDING GROUPS, GOAL IN PLANNING MEETING WAS TO "PARTICIPATE IN GROUPS" REPORTED SLEEPING "OKAY", MOOD THUS FAR IS STABLE, + APPETITE, FULL RANGE AFFECT, DISCUSSED STRESSORS IN FOCUS GROUP WELL.
--- NOTE | 2016-11-21 14:36 | SOCIAL WORKER PROG NOTE PSYCH ---
Social Work Progress Note Progress Note Faxed over a referral to [facility] in [place]
--- NOTE | 2016-11-21 14:36 | SOCIAL WORKER PROG NOTE PSYCH ---
Social Work Progress Note Progress Note Pt reports he needs to go to Rehab, he is willing to make phone calls and self advocate. At this point he presented oriented, and less depressed. I told him we made the referral to [facility]. We explored his cycyle and what it would look and feel like if her stable/content and sober. * Contacts with family and significant others in treatment, including family meeting(s) * Family attitudes * Community resource contacts and liaison with other clinicians/agencies
--- NOTE | 2016-11-21 16:17 | CP SOUTH PROGRESS NOTE PSYCH ---
Psych (Inpt) Progress Note Progress Note Include the following elements, when applicable: Involvement in the active treatment of the patient with behavioral observations of the patient and the patient's response to the treatment. Review of the ongoing treatment process in the context of the treatment plan. Indication of how multi-disciplinary staff members are carrying out the treatment plan. Plans for future interventions and recommendations for revision of the treatment plan. Liaison with other physicians/providers. Progress Note: PSYCHIATRIST NOTE, 11/21/2016: I discussed this patient's progress thus far, current mental status, treatment and discharge planning with staff team today in the daily morning ITTM and also met with him again myself in individual session. Patient denied any problematic side effects from initial doses of [place] carbonate and is agreeable to increasing dose to 900mg/day. He had no complaints about his treatment here thus far or in terms of his adjustment to the patient milieu and, also importantly, there have been no communications to me by nursing staff of any problems with regard to his initial behavior/adjustment to hospital. Patient is still reserved and not that spontaneously talkative but does participate in discussion of how he has been doing over the past year and more and how he himself can contribute to turning things around in a positive direction for him and his future, including his hopes for being a better parent to his 4 minor children, trying to stay in their lives however he can and overcoming his demoralization at already feeling "a failure as a father." Application has been initiated to [facility] in [place], [place]., patient' s first choice residdential rehab program and several others will also be filed in order to ensure he has a place somewhere, as a direct transfer from [facility], if possible. Patient reports help from Klonopin in reducing anxiety/ apprehensive with regard to having a panic attack; we went over once again that this medication, like any benzodiazepine, is potentially addictive and, if continued for an extended interval on an outpatient basis could undermine his efforts to become and remain clean and sober in all respects and that ultimately , once [place] concentration is within therapeutic range, I will propose that we increase current dose of Paxil in effort to much more effectively/permanently reduce chances of experiencing significant panic-related anxiety. Patient is also aware that being discharged from [facility] still on Klonopin he may not be eligible for admission to most, if not all, [facility] residential rehab programs.
--- NOTE | 2016-11-21 22:13 | NUR ---
PT IS VISIBLE ON UNIT, SOCIAL WITH PEERS AND STAFF. ATTENDED WRAP UP MEETING AND AA THIS EVENING. COOPERATIVE AND COMPLIANT WITH STAFF. NO COMPLAINTS OR SI REPORTED. PT HAS A STABLE MOOD AND FULL RANGE AFFECT.
[2016-11-22] VITALS (8 sets, daily range): BP systolic 135–144; BP diastolic 62–75
--- NOTE | 2016-11-22 05:32 | NUR ---
PT SLEPT. IN GOOD CONTROL.
--- NOTE | 2016-11-22 14:06 | NUR ---
PT IS COMPLIANT AND COOPERATIVE. MOOD IS STABLE WITH A FULL RANGE OF AFFECT. PT DENIES SI AT THIS TIME, NO COMPLAINTS OFFERED. NO S/S OF DETOX NOTED OR REPORTED, NO SCORING ON CIWA. PT HAS BEEN PRESENT IN THE COMMUNITY AND INTERACTING WELL WITH PEERS AND STAFF. PT IS ATTENDING MOST GROUPS. VITALS ARE STABLE, APPETITE IS GOOD.
--- NOTE | 2016-11-22 14:47 | SOCIAL WORKER PROG NOTE PSYCH ---
Social Work Progress Note Progress Note Began referral process to rehabs. Pt was referred to: Eliot Cuevas, Verna Patel, Zachary, AALIYAH, Doroteo Morales, Weston Landry, Macrina Chacon Mcauliffe and Dennis Mckee. Pt states anywhere he goes he knows someone due to his mutliple admssions. He was concerned that being prescribed Klonipin may hinder acceptance to the above referrals. Pt continues to be alert, vigilant and cooperative. Pt is at risk of self harm until a recovery based program is found, he has had a number of serious previous attempts, and has not managed to stabilize for long due to relapse. Pt plans to go to rehab, and from there go to jail treatment.
--- NOTE | 2016-11-22 15:27 | SOCIAL WORKER PROG NOTE PSYCH ---
Social Work Progress Note Progress Note MAYO SÁNCHEZ [id number] 1980 MAYO SÁNCHEZ [id number] Pended Authorization # Client Authorization # Type of Request [id number] CONCURRENT Date of Admission/ Start of Services Requested From Submission Date 11/19/2016 11/22/2016 11/22/2016
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
--- NOTE | 2016-11-22 21:52 | NUR ---
Pt is out in the community mood is stable affect is full range. Compliant and cooperative with the staff no behavioral issues noted during the day. Vital signs are stable appetite is good. Will continue to monitor the pt overnight.
--- NOTE | 2016-11-23 06:39 | NUR ---
PATIENT SLEPT ALL NIGHT.
[2016-11-23 07:48] VITALS: BP 116/81
[2016-11-23 07:49] VITALS: BP 116/81
--- NOTE | 2016-11-23 12:20 | NUR ---
Late Entry: Approx 08:45am patient stumbled while rising from chair in kitchen landing on his posterior and lightly banging his head on wooden cabinet. He skyler immediately to his feet denieing any dizzyness or pain. Visual exam of back of head revealed no sign of injury. He refused further examination.
--- NOTE | 2016-11-23 12:26 | NUR ---
HOD Dr. Higuera notified re: the pt's minor fall and situation was described and per MD no further orders just for staff to monitor the pt overall. This RN specifically spoke to pt after the incident and throughout the morning and afternoon and no injuries/issues/concerns noted or reported and pt laughed when speaking about it. Pt is present on the unit with a stable mood and full range affect, social with peers and staff and appropriate, VSS. no pain.
[2016-11-23 12:36] VITALS: BP 137/84
--- NOTE | 2016-11-23 13:34 | CP SOUTH PROGRESS NOTE PSYCH ---
Psych (Inpt) Progress Note Progress Note Include the following elements, when applicable: Involvement in the active treatment of the patient with behavioral observations of the patient and the patient's response to the treatment. Review of the ongoing treatment process in the context of the treatment plan. Indication of how multi-disciplinary staff members are carrying out the treatment plan. Plans for future interventions and recommendations for revision of the treatment plan. Liaison with other physicians/providers. Progress Note: Pt notes that he is "good." Slept well. Denies SI or HI. Has friend visiting today who is very suportive, Bibi. Current Medications Sig/Minerva Start time Last Medication Dose Route Stop Time Status Admin Atorvastatin Calcium 10 MG 11/19 170 AC 11/22 PO 1622 Clonazepam 1 MG 0800,1600,11/23 08 DC PO 11/30 0759 Clonazepam 1 MG 0800,1600,11/22 220 AC 11/23 PO 11/29 1758 0812 Clonazepam 1 MG 0800,1400,11/21 DC 11/22 PO 11/28 1959 1304 Divalproex Sodium 1,500 MG 11/20 AC 11/22 PO 1957 Gabapentin 300 MG Q4P PRN 11/21 1545 AC 11/21 PO 1803 Gabapentin 300 MG 0800,1300,1700,11/20 1700 AC 11/23 PO 1242 [place] Carbonate 600 MG 0800,11/22 AC 11/23 PO 0812 [place] Carbonate 300 MG 0800 11/22 0800 DC 11/22 PO 0856 [place] Carbonate 600 MG 11/21 DC 11/21 PO 2010 Lorazepam 0.5 MG 1200 11/23 1200 DC 11/23 PO 11/23 1201 1242 Lorazepam 0.5 MG 0800,0 11/22 0800 DC 11/22 PO 11/22 220 2115 Lorazepam 1.5 MG Q2P PRN 11/20 1645 DC PO Lorazepam 1 MG Q2P PRN 11/19 161 DC 11/20 PO 2013 Multivitamins 1 TAB DAILY 11/19 1605 AC 11/23 PO 0813 Naltrexone HCl 50 MG DAILY 11/21 1000 AC 11/23 PO 08 Nicotine 2 MG .STK-MED ONE 11/22 1748 DC PO 11/22 1749 Nicotine 2 MG Q2P PRN 11/19 1615 AC 11/23 PO 1257 Olanzapine 20 MG AT BEDTIME 11/19 2200 AC 11/22 PO 2116 Paroxetine HCl 20 MG DAILY 11/19 1134 AC 11/23 PO 0813 Trazodone HCl 150 MG AT BEDTIME 11/220 AC 11/22 PO 211 Trazodone HCl 200 MG AT BEDTIME 11/19 2200 DC 11/21 PO 2133 Laboratory Tests 11/22 0659 Toxicology Valproic Acid (50 - 120 ug/mL) 82.2 Vital Signs Date Time Temp Pulse Resp B/P B/P Pulse O2 O2 Flow FiO2 Mean Ox Delivery Rate 11/23 1236 87 137/84 11/23 0749 98.1 91 116/81 11/23 0648 98.1 91 116/81 11/22 2010 97.9 97 16 139/71 11/22 2004 97.9 97 139/71 11/22 1614 92 144/75 11/22 1612 92 144/75 MSE Appears as stated age. Cooperative behavior, good, appropriate eye contact. Nl speech rate and prosody. No psychomotor retardation or agitation. Mood fine Affect euthymic, , appropriate, non-liable. Linear and goal directed thought process. Denies SI or HI. Does not appear to be responding to internal stimuli. Denies AVHs, paranoia, or delusions. I/J: limited A/P: Pt with Bipolar disorder, PSD now with improving mood. - Continue current medication regimen - VPA 82.2, lithium level ordered for 11/25 - d/c CIWA as no evidence for wd - Encourage groups
--- NOTE | 2016-11-23 14:32 | NUR ---
PT VISIBLE IN THE [place] TODAY. HIS GOAL WAS TO TAKE ONE STEP AT A TIME. PT HAS BEEN GOING TO GROUPS, AND INTERACTING WITH PEERS. HE HAS BEEN CALM, AND COOPERATIVE WITH STAFF DIRECTION. HE DENIES THOUGHTS OF HURTING HIMSELF WHEN ASKED.
[2016-11-23 15:47] VITALS: BP 134/77
--- NOTE | 2016-11-23 18:42 | NUR ---
PT IS OUT IN THE COMMUNITY INTERACTING WELL WITH STAFF AND PEERS. PT IS COMPLIANT AND COOPERATIVE WITH UNIT RULES. PT PLAYED THE KEYBOARD FOR SOME OF HIS PEERS THIS SHIFT. PT MOOD IS STABLE WTIH A FULL RANGE AFFECT. PT DENIES SI THGOUHTS.
[2016-11-23 20:05] VITALS: BP 138/68
--- NOTE | 2016-11-24 05:20 | NUR ---
PATIENT UP TO BATHROOM ONCE, OTHERWISE SLEPT ALL NIGHT.
[2016-11-24 07:58] VITALS: BP 141/73
--- NOTE | 2016-11-24 12:11 | CP SOUTH PROGRESS NOTE PSYCH ---
Psych (Inpt) Progress Note Progress Note Include the following elements, when applicable: Involvement in the active treatment of the patient with behavioral observations of the patient and the patient's response to the treatment. Review of the ongoing treatment process in the context of the treatment plan. Indication of how multi-disciplinary staff members are carrying out the treatment plan. Plans for future interventions and recommendations for revision of the treatment plan. Liaison with other physicians/providers. Progress Note: Pt notes that he had a "good" day yesterday. He slept "good." Denies AVHs. Denies SI or HI. Talked with mother, brother, and friend, whom he counts as supports. Current Medications Sig/Minerva Start time Last Medication Dose Route Stop Time Status Admin Atorvastatin Calcium 10 MG 17011/19 17011/23 PO 1729 Clonazepam 1 MG 0800,1600,11/22 AC 11/24 PO 11/29 1758 0747 Divalproex Sodium 1,500 MG 11/20 PO 2034 Gabapentin 300 MG Q4P PRN 11/21 1545 AC 11/21 PO 1803 Gabapentin 300 MG 0800,1300,1700,11/20 1700 AC 11/24 PO 0745 [place] Carbonate 600 MG .STK-MED ONE 11/24 2027 DC PO 11/23 2028 [place] Carbonate 600 MG 0800,11/22 AC 11/24 PO 0747 Multivitamins 1 TAB DAILY 11/19 1605 AC 11/24 PO 0745 Naltrexone HCl 50 MG DAILY 11/21 1000 AC 11/24 PO 0745 Nicotine 2 MG Q2P PRN 11/19 1615 AC 11/24 PO 1125 Olanzapine 20 MG AT BEDTIME 11/19 2199 AC 11/23 PO 2133 Paroxetine HCl 20 MG DAILY 11/19 1134 AC 11/24 PO 0745 Trazodone HCl 150 MG .STK-MED ONE 11/24 2119 DC PO 11/23 2120 Trazodone HCl 150 MG AT BEDTIME 11/22 PO 2133 Laboratory Tests 11/22 0659 Chemistry Vitamin B12 (239 - 931 pg/mL) 508 Folate (2.76 - 20.0 ng/mL) 14.1 TSH (0.270 - 4.200 uIU/mL) 2.300 Free T4 (0.79 - 2.35 ng/dL) 1.37 Toxicology Valproic Acid (50 - 120 ug/mL) 82.2 Vital Signs Date Time Temp Pulse Resp B/P B/P Pulse O2 O2 Flow FiO2 Mean Ox Delivery Rate 11/24 0758 96.9 86 141/73 11/23 2004 97.8 98 138/68 11/23 1547 92 134/77 11/23 1236 87 137/84 MSE Appears as stated age. Cooperative behavior, good, appropriate eye contact. Nl speech rate and prosody. No psychomotor retardation or agitation. Mood fine Affect euthymic, , appropriate, non-liable. Linear and goal directed thought process. Denies SI or HI. Does not appear to be responding to internal stimuli. Denies AVHs, paranoia, or delusions. I/J: limited A/P: Pt with Bipolar disorder, PSD now with improving mood. - Continue current medication regimen - VPA 82.2, lithium level ordered for 11/25 - d/c CIWA as no evidence for wd - Encourage groups
[2016-11-24 12:22] VITALS: BP 129/90
--- NOTE | 2016-11-24 13:06 | NUR ---
PT IS COMPLIANT AND COOPERATIVE WITH UNIT RULES. PT IS OUT IN THE COMMUNITY INTERACTING WITH WITH STAFF AND PEERS. PT IS ACTIVE IN GROUPS. PT MOOD IS STABLE WITH A FULL RANGE AFFECT. PT DENIES SI THOUGHTS.
[2016-11-24 16:57] VITALS: BP 138/97
[2016-11-24 20:10] VITALS: BP 133/83
--- NOTE | 2016-11-24 22:36 | NUR ---
Pt is present within the community and social with peers and staff however does make inappropriate comments at times such as, "I have a tooth ache, can I have a shot of whiskey?" After pt was redirected/that comment wasnot tolerated, pt denied having a tooth ache and wanted nicotine gum. Can be loud and boisterous with poorjudgement and boundaries and requires staff to redirect, mood is elevated with full range affect, VSS, + appetite.
--- NOTE | 2016-11-25 06:21 | NUR ---
PATIENT SLEPT ALL NIGHT.
[2016-11-25 08:10] VITALS: BP 102/56
[2016-11-25 09:08] LABS: LITHIUM 0.7 mmol/L (0.6-1.2)
[2016-11-25 12:53] VITALS: BP 140/79
--- NOTE | 2016-11-25 13:00 | CP SOUTH PROGRESS NOTE PSYCH ---
Psych (Inpt) Progress Note Progress Note Include the following elements, when applicable: Involvement in the active treatment of the patient with behavioral observations of the patient and the patient's response to the treatment. Review of the ongoing treatment process in the context of the treatment plan. Indication of how multi-disciplinary staff members are carrying out the treatment plan. Plans for future interventions and recommendations for revision of the treatment plan. Liaison with other physicians/providers. Progress Note: PSYCHIATRIST NOTE, 11/25/2016: I have discussed this patient's progress to date, current mental status, treatment and discharge planning with staff team today in the daily morning ITTM and also met with him again myself in individual session; patient had done as I had asked last week and had a note delivered to me by nursing staff when he felt he needed to be seen ("Dr. Tejada, can you meet with me as soon as possible?") ; we met shortly thereafter. Patient reported experiencing increased anxiety and tension since Ativan was tapered away over the weekend despite my starting him on Klonopin, 1mg 3x/day; after considerable discussion I agreed to increase dose of Klonopin to 1mg 4x/day for today only, after which dose will again be lowered to a total of 3mg daily; I must say, I am disappointed that a fairly significant dose of Klonopin seems to have had so little positive impact on this patient's anxiety to date. We also agreed to double current Neurontin dose to 600mg 3x/day and add a low dose PRN of Inderal, 20mg, up to 3x/day. Patient' s serum [place] level this morning was 0.7mEq/L; he completely denied any side effects on Li+ to date and agreed to increasing dose today from 1,200mg to 1, 500mg daily. Valproic acid concentration was 8l.8mcg/ml this morning, stable in what seems at or near optimal level. Referrals have been made to multiple residential rehab programs throughout the state.
--- NOTE | 2016-11-25 14:24 | SOCIAL WORKER PROG NOTE PSYCH ---
Social Work Progress Note Progress Note Martínez completed the screening for [facility]. I requested the PPD be placed and read kiely per their request and prior to acceptance. Pt [facility] has phone screening set up with [facility] at 10am on friday we will call [phone] and ask for [place]. Martínez was agreeable to do screenings and states he is looking to go to longer term treatment as well.
--- NOTE | 2016-11-25 14:32 | NUR ---
PT IS COMPLIANT AND COOPERATIVE. MOOD IS STABLE WITH A FULL RANGE OF AFFECT. PT DENIES SI AT THIS TIME, NO COMPLAINTS OFFERED. NO S/S OF DETOX NOTED OR REPORTED, NO SCORING ON CIWA. PT IS PRESENT IN COMMUNITY AND INTERACTING WELL WITH PEERS AND STAFF. PT IS ATTENDING GROUPS. VITALS ARE STABLE, APPETITE IS GOOD.
[2016-11-25 16:01] VITALS: BP 138/92
[2016-11-25 19:53] VITALS: BP 138/84
--- NOTE | 2016-11-25 21:47 | NUR ---
Pt is in bed during change of shift. Pt mood is stable interacts with with his peers. Vital signs are stable. Will continue to monitor the pt overnight.
--- NOTE | 2016-11-26 05:58 | NUR ---
PATIENT SLEPT ALL NIGHT.
[2016-11-26 07:41] VITALS: BP 140/78
--- NOTE | 2016-11-26 11:18 | SOCIAL WORKER PROG NOTE PSYCH ---
Social Work Progress Note Progress Note [facility] did NOT accept pt for rehab.
--- NOTE | 2016-11-26 11:18 | SOCIAL WORKER PROG NOTE PSYCH ---
Social Work Progress Note Progress Note Pt completed screening for [facility]. * Interviews with family members * Assessments linked to the treatment plan * Additions to or changes in the treatment plan along with reasons for same * Contacts with family and significant others in treatment, including family meeting(s) * Family attitudes * Community resource contacts and liaison with other clinicians/agencies
--- NOTE | 2016-11-26 11:46 | SOCIAL WORKER PROG NOTE PSYCH ---
Social Work Progress Note Progress Note MAYO SÁNCHEZ [id number] 1980 MAYO SÁNCHEZ [id number] Pended Authorization # Client Authorization # Type of Request [id number] CONCURRENT Date of Admission/ Start of Services Requested From Submission Date 11/19/2016 11/26/2016 11/26/2016
[2016-11-26 12:07] VITALS: BP 141/80
--- NOTE | 2016-11-26 13:40 | NUR ---
PT IS COMPLIANT AND COOPERATIVE. MOOD IS STABLE WITH A FULL RANGE OF AFFECT. PT DENIES SI AT THIS TIME, NO COMPLAINTS OFFERED. PT NOTED TO BE FALLING ASLEEP SITTING IN THE COMMUNITY AT TIMES- C/O FEELING DROWSY. PT IS PRESENT IN THE COMMUNITY AND INTERACTING WITH PEERS AND STAFF. PT IS ATTENDING MOST GROUPS. VITALS ARE STABLE, APPETITE IS GOOD.
--- NOTE | 2016-11-26 14:19 | SOCIAL WORKER PROG NOTE PSYCH ---
Social Work Progress Note Progress Note Pt has been accepted to [facility], pt will speak with Dr. Tejada as the klonipin is hindering him being admitted to rehabs, pt also needs a PPD placed and read, so it can be faxed over. [phone] (fax)
--- NOTE | 2016-11-26 14:30 | CP SOUTH PROGRESS NOTE PSYCH ---
See Addendum Psych (Inpt) Progress Note Progress Note Include the following elements, when applicable: Involvement in the active treatment of the patient with behavioral observations of the patient and the patient's response to the treatment. Review of the ongoing treatment process in the context of the treatment plan. Indication of how multi-disciplinary staff members are carrying out the treatment plan. Plans for future interventions and recommendations for revision of the treatment plan. Liaison with other physicians/providers. Progress Note: PSYCHIATRIST NOTE, 11/26/2016: I discussed this patient's progress to date, current mental status, treatment and discharge planning with staff team today in the daily morning ITTM. I was called by the fixed income manager of the [facility] program, Maral Black LPN, to confirm that patient is accepted for admission there tomorrow and that his insurance will cover but that he/his mother have to sign a document making that facility "rep payee" for his monthly assistance check to guarantee payment.
--- NOTE | 2016-11-26 15:57 | CP SOUTH PROGRESS NOTE PSYCH ---
Psych (Inpt) Progress Note Progress Note Include the following elements, when applicable: Involvement in the active treatment of the patient with behavioral observations of the patient and the patient's response to the treatment. Review of the ongoing treatment process in the context of the treatment plan. Indication of how multi-disciplinary staff members are carrying out the treatment plan. Plans for future interventions and recommendations for revision of the treatment plan. Liaison with other physicians/providers. Progress Note: PSYCHIATRIST NOTE, 11/26/2016: I discussed this patient's progress to date, current mental status, treatment and discharge planning with staff team today in the daily morning ITTM and also met with him again myself in individual session. Patient has not been mixing much on the unit, but partly this may be a mechanism by which he contains his irritability and impulsivity; keeping a low profile may have some benefit for him (in the absence of optimal mood stabilization from current medication trials as of yet). I had lowered the daily dose of Klonopin today back down to 3mg from 4mg; I was surprized that not only did patient not protest this but acknowledged that the dose of 1mg 3x/day appeared to him to have a significantly calming effect; he had not apprehensions with regard to being at risk for a panic attack. We spoke about the likelihood that even if he were initially accepted at a residential rehab program there would be none which would accept his continuing on the Klonopin. We spoke about alternative supports in the community were he to return to his own rental upon discharge; patient notes attending A.A. meetings and having "two sponsors," and that he could easily increase attendance to 1-2x/day everyday; we also spoke about him possibly attending IOP at [facility] which might have a less rigid approach to him taking Klonopin; patient denies having "abused benzodiazepines" in the past; we spoke about the link between continued regular use of benzos. and eventual alcoholic relapse; patient was well aware of the serious and lifethreatening interaction of benzos. and alcohol when taken together. Patient denied any side effects related to higher dose [place] therapy; we will be repeating [place] and valproic acid levels tomorrow morning, 11/27/2016. We started a low dose of regular Inderal, 10mg 3x/day, and I lowered the PRN dose from 20mg to 10mg; this may also minimize any minor [place]-related tremor.
[2016-11-26 16:35] VITALS: BP 145/78
[2016-11-26 20:25] VITALS: BP 130/76
--- NOTE | 2016-11-26 20:56 | NUR ---
Patient observed committing inappropriate contact with another patient. Patient counseled to unit rules and expectation on the unit. Patient verbalized understanding of unit rules and will attempt to adhere going forward.
[2016-11-27 06:53] LABS: LITHIUM 0.9 mmol/L (0.6-1.2)
[2016-11-27 08:23] VITALS: BP 142/77
[2016-11-27 12:34] VITALS: BP 124/88
--- NOTE | 2016-11-27 12:48 | NUR ---
PT IS PRESENT WITHIN THE COMMUNITY AND SOCIAL WITH PEERS HOWEVER, DOES EXIBIT POOR JUDGEMENT AND BOUNDARIES AT TIMES AND MUST BE REMINDED OF APPROPRIATENESS ON CPS UNIT, CAN BECOME IRRITABLE WITH LIMIT SETTING, RANDOMLY MAKES LOUD JOKES OR SINGS, MEDICATION AND TREATMENT COMPLIANT OVERALL. IN PLANNING MEETING REPORTED + MOOD/SLEEP AND GOAL WAS TO "WORK ON DISCHARGE AND GO TO GROUPS", VSS.
--- NOTE | 2016-11-27 13:58 | CP SOUTH PROGRESS NOTE PSYCH ---
Psych (Inpt) Progress Note Progress Note Include the following elements, when applicable: Involvement in the active treatment of the patient with behavioral observations of the patient and the patient's response to the treatment. Review of the ongoing treatment process in the context of the treatment plan. Indication of how multi-disciplinary staff members are carrying out the treatment plan. Plans for future interventions and recommendations for revision of the treatment plan. Liaison with other physicians/providers. Progress Note: PSYCHIATRIST NOTE (DISCHARGE), 11/27/2016: I discussed this patient's progress to date, current mental status, treatment and discharge plans with staff team today in the daily morning ITTM prior to discharging him to intake at [facility], where he has an intake scheduled for tomorrow, 11/28/2016, at 2pm, to begin individual and/or group therapy and medication managment. Patient also plans to increase his involvement with A.A. and [facility]; patient already has an A.A. sponsor and plans to contact him/keep in touch frequently, particularly during the next several weeks after discharge from hospital. He also has an appointment with his PCP, Dr. 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 Patient had initially favored going to a residential rehab but his current Klonopin trial made this not feasible and also excluded him from attending both [place] dual [facility] or [facility] IOP at this time; he had also been rejected by [facility] for f/u there in the [facility] psych [facility]. Serum [place] level this morning was up to 0.9mEq/L and Li+ continues to be well tolerated at current dose of 1,500mg/day; I would recommend repeating level in 1-2 weeks on current dose or prior to any consideration of increasing present dosage. Currently, serum valproic acid concentration is only a little over 73mcg/ml, so there may still be some room for further upward titration in dosage , if necessary, but I would recommend first giving patient a chance for a full clinical trial on Oberon. I have called into [facility], [place], [place] on day of discharge, 11/27/2016 : [place] carbonate, 300mg: ii tabs in AM iii(3) tabs in PM (1,500mg/day); #35 with ONE refill (mood stabilizer) Depakote ER, 500mg: iii tabs nightly at HS (1,500mg/night); #21 with ONE refill (mood stabilizer) Zyprexa, 20mg: i tab nightly at HS (20mg/night); #7, ONE refill (racing/ discorganized thoughts) Paxil, 20mg: i tab daily in AM (20mg/day); #7 with ONE refill (anti- depressant/anti-panic anxiety) Neurontin, 600mg: i tab 3x/day (1,800mg daily); #21, ONE refill (discomfort/ shakiness/anxiety) trazodone, 150mg: i nightly at HS (150mg/night); #7, ONE refill (sleep induction/depression) Inderal, 10mg: i tab 3x/day i tab PRN (30-40mg daily); #28 with ONE refill (tremors/ anxiety/hypertension) Revia, 50mg: i tab daily (50mg/day); #7 with ONE refill (to reduce cravings for alcohol) Klonopin, 1mg: i tab 3x/day (3mg daily); #21 with ONE refill (control panic sx--switching to Paxil) nicotine lozenges, 2mg: i PRN (up to 20mg/day); #110, no refill (reduce tobacco/nicotine craving) (patient was also given an appointment card for the next scheduled [facility], meeting on 12/11/2016 at 4pm, facilitated by Ria Hernandez LCSW, and urged to attend it) patient was also discharged on and said he had an adequate supply to take: Lipitor, 10mg daily
--- NOTE | 2016-11-27 15:33 | SOCIAL WORKER PROG NOTE PSYCH ---
Social Work Progress Note Progress Note Pt feels positive, and is eager to get out of hospital, he reports he has had a lot of contact with sober supports and is denying si.hi/ah/vh. Pt "feels good< I want to be sober and get back in touch with my kids, that's who I am". Pt referred to [facility], he has been there before for individual and or group therapy and med management. His appointment is November 28, 2016 at 2pm.
[2016-11-27 15:56] VITALS: BP 138/71
[2016-11-27] MEDS ORDERED: PAXIL20 M1 PO (16:10)
--- NOTE | 2016-11-27 16:20 | NUR ---
PT SCHEDULED TO BE DISCHARGED TODAY, PRESENT WITHIN THE COMMUNITY AND SOCIAL WITH PEERS AND STAFF, NO ISSUES OR COMPLAINTS REPORTED OR OBSERVED, WHEN ASKED DIRECTLY DENIES SI/HI/ HALLUCINATIONS. PT IS ATTENDING GROUPS AND IS ACTIVE WITHIN THE [place], MOOD IS STABLE WITH FULL RANGE AFFECT. W-10 REVIEWED AND PT HAD NO QUESTIONS AND REPORTED A + UNDERSTANDING RE: MEDICATION REGIMENT AND MOTIVATION FOR DISCHARGE FOLLOW-UP AND SOBRIETY AND MEDICATION COMPLIANCE. REPORTS OVERALL IMPROVEMENT IN BEHAVIOR/MOOD/MENTAL STATUS/SLEEP. INFORMATION PACKETS RE: BIPOLAR AND SI GIVEN TO PT AND RESOURCE GUIDE REVIEWED ALONG WITH PERTINENT PHONE NUMBERS I.E., [facility], [facility], [facility].
[2016-11-27] MEDS ORDERED: NICORELIEF2 MG PO (16:51)
[2016-11-27] MEDS ORDERED: KLONOPIN1 M1 PO (16:53)
[2016-11-27] MEDS ORDERED: NALTREXONE HCL50 M1 PO (16:53)
[2016-11-27] MEDS ORDERED: GABAPENTIN300 M2 PO (16:54)
[2016-11-27] MEDS ORDERED: TRAZODONE HCL150 M1 PO (16:54)
[2016-11-27] MEDS ORDERED: DIVALPROEX SOD500 M2 PO (16:54)
[2016-11-27] MEDS ORDERED: LITHIUM CARBON300 M4 PO ×2 (16:55)
[2016-11-27] MEDS ORDERED: OLANZAPINE10 M1 PO (16:55)
--- NOTE | 2016-11-27 17:09 | DISCHARGE SUMMARY REPORT-PSYCH ---
Visit Information Visit Dates/Diagnosis' Admission Date: 11/19/16 Discharge Date: 11/27/16 Reason for Admission: "I'm here for a suicide attempt." Psy Discharge Primary Diag: Unspecified Bipolar spectrum disorder; MRE Mixed/ irritable/depressed Alcohol Use Disorder Cocaine Use Disorder Opioid Use Disorder; in remission Psy Discharge Secondary Diag: Unspecified Panic Disordr Narcissistic Personality 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 Hypertensn Benzodiazepine (Klonopin) Dependence (temporarily prescribed--until dose of Paxil is optimalized) Hospital Course Significant Lab Findings: glucose = 128; sodium = 135; WBC = 8.0, HGB = 15.6, HCT = 45.1; LITA = less than 10.0; urine for drugs of abuse--positive for benzodiazepines (51.70ng/ml) and cannabis (51.70ng/ml); for complete details of all normal range laboratory data from this admission, see the electronic medical record Course Complications: none Consultations: patient was seen for an admission medical H&P by Yasmine Falk M.D., and followed medically during this admission by the hospitalist staff/[facility]ly [facility], [facility] attending medical physicians Allergies: Coded Allergies: cyclobenzaprine (TREMORS 12/03/16) fluoxetine (Intermediate, ANXIETY 11/05/16) bupropion (Mild, Increase in afshan, reported on a previous admission 11/05/16) Hospital Course/TX Response: (see also all admission/initial assessments, daily M.D./UTILIZATION MANAGEMENT RN and CARPET LAYER HELPER progress notes, all of which are in the electronic medical record) Though patient has apparently carried a diagnosis of biplar disorder in the past he denied ever having been on a full clinical trial of [place]. His life had gone progressively downhill, accelerated by ongoing pretty much constant/ persistent abuse of alcohol and crack cocaine. Patient agreed to resume the trial of [place] he and I had initiated on [facility] in 06/2015 with target symptoms including history of hypomania on primary anti-depressants and lability /impulsivity/irritability. He had overdosed on [place] on the way day following discharge in 06/2015, but this had been a brief admission, and he obviously had not fully stabilized. By date of discharge serum [place] level was up to 0.9mEq /L and Li+ well tolerated at a dose of 1,500mg/day. Patient gave a history of longstanding panic symptoms which he claimed precipitated his use/abuse of alcohol; given the difficulty in stabilizing this patient I thought it might be appropriate to take him at his word and try/trial Klonopin to reduce/eliminate panic attacks. However, patient's response to starting on this longacting benzodiazepine was not startling; I would not go over 3mg/day and though patient initially requested a higher dose, he gradually adjusted to the dose ordered and appeared calmer, denied any panic symptoms. I certainly would not advocate patient being maintained on ANY Klonopin if there is evidence that he is not taking [place] and Depakote properly. Eventually, even if the Klonopin helps stabilize patient in the short-term, I would recommend continued upward titration in dose of Paxil (the latter so long as patient continues on mood stabilizers). Discharge HBIPS - Tobacco Use Treatment Offered Post DC Medications Offered: Script Given-See Med List (requested nicotine lozenges) Post DC Tobacco Treatment Plan: Nas Tobacco Tx Pgm Program Appt Date: 12/11/16 Program Appt Time: 1600 (Nas zhou, 12/11/16, 4pm) - EtOH/Drug Use D/O Treatment Offered Post DC Medications Offered: Script Given-See Med List (for Revia) Post DC EtOH/SubAbuse TX Plan: Other SubAbuse/Dual Pgm ("home" AA meeting night of D/C) Metabolic Screening - Screen if on a Neuroleptic Medication - Metabolic screening should include: - Blood Pressure, BMI, Glucose or Hgb A1c, & a - Lipid profile from within the past 365 days. Metabolic Screening () Not Applicable, patient not on a neuroleptic. OR ([x]) Patient on a neuroleptic(s) . Enter below results for Glucose or Hemoglobin A1C, and lipid panel if obtained during the last 365 days. BMI: Blood Pressure: 138/71 Laboratory Results (If applicable): [x] glucose = 128 (on 12/03/2016) glycos hgb A1c = 5.1 (on 11/19/2016) cholesterol = 223 (all drawn on 11/19/2016) triglycerides = 97 HDL = 52 LDL = 152 Discharge Instructions General Discharge Information Discharge Medications: Discharge Medications (dose, route, frequency, indications): (see also the M.DRachelle discharge progress note of 11/27/2016 in the electronic medical record) I have called into [facility], [place], [place] on day of discharge, 11/27/2016 : [place] carbonate, 300mg: ii tabs in AM iii(3) tabs in PM (1,500mg/day); #35 with ONE refill (mood stabilizer) Depakote ER, 500mg: iii tabs nightly at HS (1,500mg/night); #21 with ONE refill (mood stabilizer) Zyprexa, 20mg: i tab nightly at HS (20mg/night); #7, ONE refill (racing/ discorganized thoughts) Paxil, 20mg: i tab daily in AM (20mg/day); #7 with ONE refill (anti- depressant/anti-panic anxiety) Neurontin, 600mg: i tab 3x/day (1,800mg daily); #21, ONE refill (discomfort/ shakiness/anxiety) trazodone, 150mg: i nightly at HS (150mg/night); #7, ONE refill (sleep induction/depression) Inderal, 10mg: i tab 3x/day i tab PRN (30-40mg daily); #28 with ONE refill (tremors/ anxiety/hypertension) Revia, 50mg: i tab daily (50mg/day); #7 with ONE refill (to reduce cravings for alcohol) Klonopin, 1mg: i tab 3x/day (3mg daily); #21 with ONE refill (control panic sx--switching to Paxil) nicotine lozenges, 2mg: i PRN (up to 20mg/day); #110, no refill (reduce tobacco/nicotine craving) (patient was also given an appointment card for the next scheduled [facility], meeting on 12/11/2016 at 4pm, facilitated by Ria Hernandez LCSW, and urged to attend it) patient was also discharged on and said he had an adequate supply to take: Lipitor, 10mg daily Multiple Neuroleptics: ([x]) Not Applicable OR Document below three failed attempts at monotherapy, or a plan to taper to monotherapy, or augmentation of Clozapine. () Patient's Diet: heart healthy Patient's Activity: without restrictions DC Disposition: to home Recommendations: I would recommend close monitoring of patient's use of Klonopin and serum [place] and valproic acid levels; if the latter two are not well within therapeutic range with adequate prescribed dosing, I would advise discontinuing Klonopin at that point. If Klonopin appears to help with reported panic symptoms/attacks I would suggest continuing the upward titration in dose of Paxil and tapering away Klonopin; in any event, patient should not have more than a 6 week trial on the Klonopin to assess effectivenss and proper compliance (not abusing it). Referred To: Patient was discharged to intake at [facility] in [facility], on the day following discharge, 11/28/2016 at 2pm; he will then begin individual and group therapy, as well as psychotropic medication management. Patient plans to increase his A.A. involvement, meeting attendance (starting with a "home" meeting on evening of discharge); he already has an active A.A. sponsor and will contact him frequently; patient after initially favoring residential rehab, patient eventually rejected or was not eligible for either. He has an appointment scheduled with his PCP, Dr. Mariee, on 12/16/2016 for a blood pressure check; following his overdose on lisinopril, patient was not started back on an TIFFANI inhibitor; he is also now on [place], so should not be restarted on any TIFFANI inhibitor so long as he remains on [place]. Patient was given an appointment card for the [facility] scheduled on 12/11/2016 at 4pm, facilitated by Ria Hernandez LCSW, and urged to attend. Copies To: ANA LILIA PRIETO,[facility] C[facility] BRONX HOSPITALMIRIAN SHAW LCSW
== END 2016-11-27 17:10 | DRG 753 ==
LOC: ERH 03:54 → ERHI 15:58 → CP SOUTH 15:58 → EDBEDREQ 17:42 → CP SOUTH 18:16 → ENRESERV 11-20 15:00 → CP SOUTH 11-20 16:36 → ENPENDDIS 11-27 23:59
PROVIDERS: Emergency Medicine; ADMIT Psychiatry & Neurology Addiction Medicine
DX: F31.60 Bipolar disorder, current episode mixed, unspecified (principal); Z72.89 Other problems related to lifestyle; F14.90 Cocaine use, unspecified, uncomplicated; Z87.898 Personal history of other specified conditions; F41.0 Panic disorder [episodic paroxysmal anxiety]; F13.20 Sedative, hypnotic or anxiolytic dependence, uncomplicated
CPT/HCPCS: 36415; 80307; G0463; G0480; J3490

== ENCOUNTER 2016-12-03 15:09 | Emergency (ER) | payer OTHER ==
[~2016-12-03] VITALS: Ht 188 cm; Wt 108.4 kg
[~2016-12-03 15:09] MED LIST changes: +DIVALPROEX SOD500 M2 PO; +KLONOPIN1 M1 PO; +LITHIUM CARBON300 M4 PO; +NALTREXONE HCL50 M1 PO; +NICORELIEF2 MG PO; +PAXIL20 M1 PO; +TRAZODONE HCL150 M1 PO
--- NOTE | 2016-12-03 15:45 | ED GENERAL ADULT ---
See Addendum History of Present Illness General Chief Complaint: ETOH/Drug Related Complaint Stated Complaint: NEEDS DETOX + SI Source: patient Exam Limitations: clinical condition Vital Signs & Intake/Output Vital Signs & Intake/Output Vital Signs Date Time Temp Pulse Resp B/P B/P Pulse O2 O2 Flow FiO2 Mean Ox Delivery Rate 12/03 1910 98.4 99 16 132/86 95 Room Air 12/03 1732 Room Air 12/03 1532 97.9 99 16 134/85 94 Room Air Allergies Coded Allergies: cyclobenzaprine (TREMORS 12/03/16) fluoxetine (Intermediate, ANXIETY 11/05/16) bupropion (Mild, Increase in afshan, reported on a previous admission 11/05/16) Reconcile Medications Atorvastatin Calcium 10 MG TABLET 1 TAB PO DAILY cholesterol (Reported) Clonazepam (Klonopin) 1 MG TABLET 1 MG PO 0800,1400,1999 for panic anxiety Divalproex Sodium 500 MG TABLET.DR 1,500 MG PO 1999 mood stabilization Fluticasone Propionate (Unknown Strength) SPRAY.SUSP (Unknown Dose) UNKNOWN ( Reported) Gabapentin 300 MG CAPSULE 600 MG PO 0800,1500,2200 discomfort/shakiness/ anxiety Bedias Carbonate 300 MG CAPSULE 900 MG PO 2000 stabilize mood Bedias Carbonate 300 MG CAPSULE 600 MG PO 0800 stabilize mood Loratadine (Unknown Strength) TABLET (Unknown Dose) UNKNOWN (Reported) Naltrexone HCl 50 MG TABLET 50 MG PO DAILY reduce craving for alcohol Naltrexone 50 mg po daily Nicotine (Nicorelief) 2 MG GUM 2 MG PO Q2P PRN nicotine craving Olanzapine 10 MG TABLET 20 MG PO AT BEDTIME clear thoughts/stabilize mood Paroxetine HCl (Paxil) 20 MG TABLET 20 MG PO DAILY anti-depressant Propranolol HCl 10 MG TABLET 1 TAB PO DAILY UNKNOWN (Reported) Trazodone HCl 150 MG TABLET 150 MG PO BEDTIME sleep induction Triage Note: PT STATES HE IS DETOXING FROM OPIODS AND HE IS FEELING SUICIDAL. PT STATES HE HAD PERCOCET AND KLONOPIN TODAY. PT STATES HE DOES DRINK ETOH BUT NOT IN THE PAST WEEK. PT DENIES HI. PT LAST DETOX WAS 1 WEEK AGO HERE. Triage Nurses Notes Reviewed? yes Onset: Abrupt Duration: unknown duration Timing: unknown HPI: 12/03/16 4:12 PM 36-year-old man presents to the emergency department complaining of depression with suicidal ideation. The patient states that he has a history of bipolar disorder. He said that he is addicted to opiates and has a problem with alcohol. He says he has not drank any alcohol in the last 4 days and last snorted opiates approximately 24 hours prior to arrival. He has done IVDA in the past but not recently. He also smokes crack. He says that he's been depressed today and he did ingest about 20 Klonopin tablets at approximately between 10 AM and 1 PM today. He denies coingestions. The onset of the symptoms was abrupt, the duration is really unknown, the severity is significant as his symptoms required to come to the emergency department for care. (JOSE ANTONIO ROSARIO DO) Past History Travel History Traveled to [facility] past 21 day No Medical History Any Pertinent Medical History? see below for history Neurological: delerium tremens, restless leg syndrome, ETOH W/D SEIZURES EENT: NONE Cardiovascular: hypertension, hyperlipidemia Respiratory: NONE Gastrointestinal: NONE Hepatic: NONE Renal: NONE Musculoskeletal: LEFT KNEE MENISCAL TEAR Psychiatric: alcohol dependence, anxiety, bipolar disease, depression, insomnia, IV drug abuse, opioid dependence, substance abuse, S.I. 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 No (JOSE ANTONIO ROSARIO DO) Review of Systems Review of Systems Constitutional: Denies: fever. EENTM: Reports: no symptoms. Respiratory: Reports: no symptoms. Cardiovascular: Reports: no symptoms. GI: Reports: abdominal pain. Genitourinary: Reports: no symptoms. Musculoskeletal: Reports: no symptoms. Skin: Reports: no symptoms. Neurological/Psychological: Reports: see HPI, depressed. Hematologic/Endocrine: Reports: no symptoms. (JOSE ANTONIO ROSARIO DO) Physical Exam Physical Exam General Appearance: awake, anxious, moderate distress Head: normal appearance Eyes: Bilateral: normal appearance, PERRL, EOMI. Ears, Nose, Throat: normal pharynx, normal ENT inspection Neck: normal inspection, supple Respiratory: normal breath sounds, chest non-tender, no respiratory distress Cardiovascular: regular rate/rhythm Peripheral Pulses: 4+ radial (R), 4+ radial (L) Gastrointestinal: soft, non-tender Back: decreased range of motion Extremities: normal inspection, normal range of motion Neurologic/Psych: no motor/sensory deficits, awake, alert, oriented x 3 Skin: intact, normal color, warm/dry Core Measures ACS in differential dx? No CVA/TIA Diagnosis: No Severe Sepsis Present: No Septic Shock Present: No (JOSE ANTONIO ROSARIO DO) Progress Differential Diagnoses I considered the following diagnoses in my evaluation of the patient: [Alcohol intoxication, depression, bipolar disorder, coingestions] Plan of Care: Orders Procedure Date/time Status Add-on Test (ER Only) 12/03 161 Active Continuous Observation Monitor 12/03 161 Active ED CRISIS PSYCH CONSULT 12/03 161 Active ACETOMINOPHEN 12/03 153 Complete SALICYLATE 12/03 153 Complete URINE DRUGS OF ABUSE 12/03 151 Complete ETHANOL 12/03 151 Complete COMPREHENSIVE METABOLIC PANEL 12/03 151 Complete CBC WITHOUT DIFFERENTIAL 12/03 151 Complete Laboratory Tests 12/03/16 1536: Anion Gap 10, Estimated GFR > 60, BUN/Creatinine Ratio 16.4, Glucose 128 H, Calcium 9.3, Total Bilirubin 0.7, AST 18, ALT 40, Alkaline Phosphatase 55, Total Protein 6.9, Albumin 4.3, Globulin 2.6, Albumin/Globulin Ratio 1.7, CBC w Diff NO MAN DIFF REQ, RBC 4.91, MCV 91.8, MCH 31.9 H, RDW 12.4, MPV 6.5 L, Gran % 66.2, Lymphocytes % 20.2 L, Monocytes % 7.6, Eosinophils % 5.4 H, Basophils % 0.6, Absolute Granulocytes 5.3, Absolute Lymphocytes 1.6, Absolute Monocytes 0.6 , Absolute Eosinophils 0.4, Absolute Basophils 0, PUBS MCHC 34.7, Salicylates < 1.0, Acetaminophen < 10.0 L, Serum Alcohol < 10.0 12/03/16 1515: Urine Opiates Screen < 100.00, Methadone Screen < 40, Barbiturate Screen < 60, Ur Phencyclidine Scrn < 6.00, Amphetamines Screen 217, U Benzodiazepines Scrn 243 H, Urine Cocaine Screen 140, Urine Cannabis Screen 51.70 H Initial ED EKG: none (JOSE ANTONIO ROSARIO DO) Comments: 12/03/2016 7:23:14 PM patient 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 (AMADO PRIETO,JOSE ANTONIO No) Departure Departure Disposition: STILL A PATIENT Condition: Stable Referrals: AISHA SUNG MD (PCP/Family) Departure Forms: Customer Survey General Discharge Information Comments 12/03/16 6:30 PM The patient will be signed out to Dr Nicholson, he is pending disposition by crisis (JOSE ANTONIO ROSARIO DO) Departure Clinical Impression Primary Impression: Benzodiazepine abuse Secondary Impressions: Depression, Marijuana use (AMADO PRIETO,JOSE ANTONIO No) Critical Care Note Critical Care Note Critical Care Time: 30-74 min (JOSE ANTONIO ROSARIO DO)
[2016-12-03 15:46] LABS: ABSOLUTE BASOPHIL COUNT 0 /CUMM (0.0-0.2); ABSOLUTE EOSINOPHIL COUNT 0.4 /CUMM (0.0-0.7); ABSOLUTE GRANULOCYTE CT 5.3 /CUMM (1.4-6.5); ABSOLUTE LYMPH COUNT 1.6 /CUMM (1.2-3.4); ABSOLUTE MONOCYTE COUNT 0.6 /CUMM (0.10-0.60); BASOPHIL % 0.6 % (0.0-2.0); EOSINOPHIL % 5.4 % (0-5); GRANULOCYTE % 66.2 % (42.2-75.2); HEMATOCRIT 45.1 % (42-52); MEAN CORPUSCULAR HGB 31.9 PG (27.0-31.0); MEAN CORPUSCULAR HGB CONC 34.7 G/DL (33.0-37.0); MEAN CORPUSCULAR VOLUME 91.8 FL (80.0-94.0); MEAN PLATELET VOLUME 6.5 FL (7.4-10.4); PLATELET COUNT 215 /CUMM (130-400); RBC DISTRIBUTION WIDTH 12.4 % (11.5-14.5); RED BLOOD CELL CT 4.91 /CUMM (4.70-6.10)
[2016-12-03] MEDS ORDERED: PROPRANOLOL HCL10 M1 PO (16:09)
[2016-12-03] MEDS ORDERED: LORATADINE10 M1 (16:10)
[2016-12-03] MEDS ORDERED: FLUTICASONE PRO16 GM (16:10)
--- NOTE | 2016-12-03 17:27 | ED PSYCH CRISIS CONSULTATION ---
See Addendum Crisis Consult Basic Assessment Date of Consult: 12/03/16 Responsible Person/Accompanied By: self Insurance Authorization: Insurance #1: Insurance name: LYNETTE CASANOVA Phone number: Policy number: [id number] Group number: Authorization number: Who Do You Live With? Patient/Self (JESSI GIBBS LCSW) Basic Assessment Date of Consult: 12/04/16 Responsible Person/Accompanied By: Self Insurance Authorization: Insurance #1: Insurance name: LYNETTE CASANOVA Phone number: Policy number: [id number] Group number: Authorization number: ED Provider: Patient's ED Provider: JOSE ANTONIO ROSARIO DO; 12/04/16 Freddie Wilson MD Primary Care Physician: Patient's PCP: AISHA SUNG MD PCP's Current Psychiatrist: None Chief Complaint: Suicide attempt by Klonopin OD Patient's Quote: "I just can't stop using." Present Illness: 36 M presents to the ED 12/03/16 1533 with CC suicidal ideation. He reports that he ingested #20 clonazepam 1 mg that day in a suicide attempt. He cannot identify a trigger, except that he is despondent that he cannot stop using drugs. 11/27/16 Discharged from inpatient psychiatry with plan to attend intake appointment at [facility] for counseling and group therapy. Other parts of the plan included attending AA again, and to work with his AA sponsor. The patient states that he did not keep the appointment that day. The patient had been admitted for an intentional massive overdose of lisinopril in a suicide attempt. The patient did attend at least one AA meeting, but had not heard back from his sponsor. 12/03/16 He presented to his [facility] housing worker, Zahraa Garcia, unexpectantly seeking a rehab bed. He reports that he had been using Percocet #10 tabs daily; last use 2 days previously; he did not want detox. The patient was screened at [facility] rehab, but was rejected after leaving [facility] in August,. The plan at [facility] was to return to continue the search for a drug and alcohol rehab. The patient has had many presentations for suicidal ideation and attempts, as well as alcohol detox and other drugs. In addition to the recent [facility] ( Inpatient psychiatry) stay above, the patient has been admitted to [facility] psychiatry unit in July 2016 and August 2016 for suicide attempt and suicidal ideation. He has a prior admission to [facility]. As of his last admission here on 11/06/16, he had been participating in [employer], but had been depressed that his 11 y.o. daughter had tried to commit suicide by OD, and was hospitalized at [facility]. The patient has been despondent that he has not been a good father to his children. 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 Han's note of ) Elmo 600 mg PO every morning - Mood stabilizer Elmo 900 mg PO every evening - Mood stabilizer Depakote ER 1500 mg PO nightly at HS - Mood stabilizer Zyprexa 20 mg PO nightly at HS - Racing/disorganized thoughts Paxil 20 mg PO Daily - Antidepressant/antipanic/anxiety Neurontin 600 mg PO 3X/day - Discomfort/shakiness/anxiety Trazodone 150 mg PO nightly at HS - Sleep induction/depression Inderal 10 mg PO 3X/day - Tremors/anxiety/hypertension Inderal 10 mg PO daily, as needed - Tremors/anxiety/hypertension Revia 50 mg PO daily - Reduce cravings for alcohol Surveillance Labs 12/03/16: Elmo 0.3 Valproic acid 27.5 Please see Lab section for urine and serum toxicology Patient's Address: [address] [place] [address] Other Phone Number: Who Do You Live With? Patient/Self Family/Informants Interviewed: TC to the patient's mother, Mariann Espinoza, [phone]: M 12/04/16 3086 ; expect return call. TC with [facility] 12/04/16 6870 , who reported on the patient's visit to their housing office yesterday, and their plan to help the patient find a rehab. Allergies - Coded Allergies: cyclobenzaprine (TREMORS 12/03/16) fluoxetine (Intermediate, ANXIETY 11/05/16) bupropion (Mild, Increase in afshan, reported on a previous admission 11/05/16) Current Medications - Scheduled Medications Atorvastatin Calcium 10 MG TABLET 1 TAB PO DAILY cholesterol #90 (Reported) Entered as Reported by PRERNA GAITAN on 08/12/16 1937 Clonazepam (Klonopin) 1 MG TABLET 1 MG PO 0800,1400,2000 for panic anxiety #21 TAB Prescribed by NANCY HAN MD on 11/27/16 Divalproex Sodium 500 MG TABLET.DR 1,500 MG PO 2000 mood stabilization #42 TAB Prescribed by NANCY HAN MD on 11/27/16 Gabapentin 300 MG CAPSULE 600 MG PO 0800,1500,2200 discomfort/shakiness/ anxiety #42 TAB Prescribed by NANCY HAN MD on 11/27/16 Elmo Carbonate 300 MG CAPSULE 900 MG PO 2000 stabilize mood #42 TAB Prescribed by NANCY HAN MD on 11/27/16 Elmo Carbonate 300 MG CAPSULE 600 MG PO 0800 stabilize mood #28 TAB Prescribed by NANCY HAN MD on 11/27/16 Naltrexone HCl 50 MG TABLET 50 MG PO DAILY reduce craving for alcohol #14 TAB Prescribed by NANCY HAN MD on 11/27/16 Olanzapine 10 MG TABLET 20 MG PO AT BEDTIME clear thoughts/stabilize mood #14 TAB Prescribed by NANCY HAN MD on 11/27/16 Paroxetine HCl (Paxil) 20 MG TABLET 20 MG PO DAILY anti-depressant #14 TAB Prescribed by NANCY HAN MD on 11/27/16 Propranolol HCl 10 MG TABLET 1 TAB PO DAILY UNKNOWN #28 (Reported) Entered as Reported by LAURA WETZEL on 12/03/16 1609 Trazodone HCl 150 MG TABLET 150 MG PO BEDTIME sleep induction #14 TAB Prescribed by NANCY HAN MD on 11/27/16 Scheduled PRN Medications Nicotine (Nicorelief) 2 MG GUM 2 MG PO Q2P PRN nicotine craving #1 GUM Prescribed by NANCY HAN MD on 11/27/16 Miscellaneous Medications Fluticasone Propionate (Unknown Strength) SPRAY.SUSP (Unknown Dose) UNKNOWN # 16 (Reported) Entered as Reported by LAURA WETZEL on 12/03/16 1610 Loratadine (Unknown Strength) TABLET (Unknown Dose) UNKNOWN #5 (Reported) Entered as Reported by LAURA WETZEL on 12/03/16 1610 Laboratory Results: Laboratory Tests 12/03/16 1536: Anion Gap 10, Estimated GFR > 60, BUN/Creatinine Ratio 16.4, Glucose 128 H, Calcium 9.3, Total Bilirubin 0.7, AST 18, ALT 40, Alkaline Phosphatase 55, Total Protein 6.9, Albumin 4.3, Globulin 2.6, Albumin/Globulin Ratio 1.7, CBC w Diff NO MAN DIFF REQ, RBC 4.91, MCV 91.8, MCH 31.9 H, RDW 12.4, MPV 6.5 L, Gran % 66.2, Lymphocytes % 20.2 L, Monocytes % 7.6, Eosinophils % 5.4 H, Basophils % 0.6, Absolute Granulocytes 5.3, Absolute Lymphocytes 1.6, Absolute Monocytes 0.6 , Absolute Eosinophils 0.4, Absolute Basophils 0, PUBS MCHC 34.7, Salicylates < 1.0, Acetaminophen < 10.0 L, Valproic Acid 27.5 L, Elmo 0.3 L, Serum Alcohol < 10.0 12/03/16 1515: Urine Opiates Screen < 100.00, Methadone Screen < 40, Barbiturate Screen < 60, Ur Phencyclidine Scrn < 6.00, Amphetamines Screen 217, U Benzodiazepines Scrn 243 H, Urine Cocaine Screen 140, Urine Cannabis Screen 51.70 H (AYSHA CAT APRN) Past History Past Medical History Neurological: delerium tremens, restless leg syndrome, ETOH W/D SEIZURES EENT: NONE Cardiovascular: hypertension, hyperlipidemia Respiratory: NONE Gastrointestinal: NONE Hepatic: NONE Renal: NONE Musculoskeletal: LEFT KNEE MENISCAL TEAR Psychiatric: alcohol dependence, anxiety, bipolar disease, depression, insomnia, IV drug abuse, opioid dependence, substance abuse, S.I. 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 Involvement in AA. Has a sponsor, who is unaware of current hospitalization. Physical Limitations (Interventions): None identified. Psychiatric Treatment History Diagnosis by History: By history: F32.9 unspecified depressive d/o F31.31 Bipolar I depressed, mild F10.20 Alcohol disorder,severe F 12.20 Cannabis use d/o, moderate (BERNIE MICHELLE,JESSI) Past Medical History Neurological: delerium tremens, restless leg syndrome, ETOH withdrawal seizures Cardiovascular: hypertension, hyperlipidemia Musculoskeletal: Left knee meniscal tear Psychiatric: alcohol dependence, anxiety, bipolar disease, depression, insomnia, IV drug abuse, opioid dependence, substance abuse, Suicidal ideation, overdose suicide attempt X 15 Past Surgical History Surgical History: hernia repair-umbilical Psychosocial History Strengths/Capabilities: Motivated for treatment, and feels he would do well in a rehab. Physical Limitations (Interventions): None Psychiatric Treatment History Psych Treatment Psychiatric Treatment Yes Inpatient Treatment Yes Outpatient Treatment Yes Location of Treatment [facility] Reason for Treatment Suicide attempts, suicidal ideation Dates of Treatment 4 inpatient admissions this year. 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 Mult rehabs Reason for Treatment Inpatient rehabs at [place], [facility] Dates of Treatment Last at [facility] in Aug 2016; pt left AMA, and is not welcome back. Response to Treatment UNK (AYSHA CAT APRN) Current Mental Status Mental Status Orientation: Person, Place, Situation Affect: Flat, Hopeless, Sad Speech: Mumbled, Poverty, Soft Neuro-vegetative: Anhedonia, Helpless, Loss of Interest, Sleep Disturbance Appearance Appearance- Dress/Hygiene: Hospital scrubs, unkempt hair Behaviors Thought Process: WNL Thought Content: WNL Memory: Impaired Insight: Poor SI/HI Risk Assessment Past Suicidal Ideation/Attempts Yes Current Suicidal Ideation/Att No Past Homicidal Ideation/Att: No Current Homicidal Ideation/Attempts No Danger To: Self Gravely Disabled: Lack of Insight, Poor Impulse Control, Poor Judgment Risk Factors: high anxiety/distress, history of suicide atmpts, SA/MH hospitalized, substance abuse, poor impulse control, lives alone, male, limited support Lethality Ratin PTSD Checklist PTSD Done? 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 F13.20 Benzodiazepine (clonazepam) dependence (temporarily prescribed until Paxil dosing is optimized) Current GAF: 20 (AYSHA CAT APRN) Departure Disposition Psych Medical Clearance Date: 12/04/16 Medically Cleared at: 0815 Time Started: 0815 Time Ended: 0835 Psychiatrist Consulted: Mallory PRIETO,Edward Date Disposition Established: 11/25/16 Plan for Disposition - Modality: Inpatient Psychiatry Facility: Bed search Rationale for Disposition: Suicide attempt by OD with clonazepam Referrals AISHA SUNG MD (PCP/Family) (AYSHA CAT APRN) Disposition Psych Medical Clearance Date: 12/04/16 Psychiatrist Consulted: Mallory PRIETO,Edward Date Disposition Established: 12/04/16 Time Disposition Established: 1530 Plan for Disposition - Modality: Inpatient Psychiatry Facility: [facility] Rationale for Disposition: safety and stabilization Type of IP Admission: Voluntary (NOELLE MICHELLE,KIMBERLYN) Addendum Addendum Pt was accepted for transfet to [facility] by Dr. Guero Velasco. (KIMBERLYN DRAKE LCSW)
[2016-12-04 08:41] LABS: LITHIUM 0.3 mmol/L (0.6-1.2)
[2016-12-04 19:23] VITALS: BP 132/83
== END 2016-12-04 19:46 | disposition still patient (30) ==
LOC: ERH 15:09
PROVIDERS: Emergency Medicine
DX: F13.10 Sedative, hypnotic or anxiolytic abuse, uncomplicated (principal); F12.10 Cannabis abuse, uncomplicated; F32.9 Major depressive disorder, single episode, unspecified; F10.10 Alcohol abuse, uncomplicated; I10 Essential (primary) hypertension; Z72.0 Tobacco use
CPT/HCPCS: 80307; G0463; G0480

== ENCOUNTER 2017-01-11 00:29 | Observation (INO) | payer OTHER ==
[~2017-01-11] VITALS: Ht 188 cm; Wt 108.9 kg
[~2017-01-11 00:29] MED LIST changes: +FLUTICASONE PRO16 GM; +LORATADINE10 M1; +PROPRANOLOL HCL10 M1 PO
--- NOTE | 2017-01-11 00:50 | ED AMS/SEIZURE/WEAK/DIZZY ---
See Addendum History of Present Illness General Chief Complaint: ETOH/Drug Related Complaint Stated Complaint: "PER PT OVERDOSE, SUICIDAL" Source: patient Exam Limitations: no limitations Vital Signs & Intake/Output Vital Signs & Intake/Output Vital Signs Date Time Temp Pulse Resp B/P B/P Pulse O2 O2 Flow FiO2 Mean Ox Delivery Rate 01/13 1245 96.3 67 20 132/92 96 Room Air 01/13 0804 97.2 76 12 111/56 93 Room Air 01/13 0551 97.9 61 20 122/65 95 Room Air 01/13 0342 97.1 66 17 126/72 97 Room Air 01/12 2216 97.3 57 18 127/72 96 Room Air 01/12 1702 97.1 71 18 122/65 98 Room Air Allergies Coded Allergies: cyclobenzaprine (TREMORS 12/03/16) fluoxetine (Intermediate, ANXIETY 11/05/16) bupropion (Mild, Increase in afshan, reported on a previous admission 11/05/16) Reconcile Medications Atorvastatin Calcium 10 MG TABLET 1 TAB PO DAILY cholesterol (Reported) Clonazepam (Klonopin) 1 MG TABLET 1 MG PO 0800,1400,1999 for panic anxiety Divalproex Sodium 500 MG TABLET.DR 1,500 MG PO 1999 mood stabilization Fluticasone Propionate (Unknown Strength) SPRAY.SUSP (Unknown Dose) UNKNOWN ( Reported) Gabapentin 300 MG CAPSULE 600 MG PO 0800,1500,2200 discomfort/shakiness/ anxiety [place] Carbonate 300 MG CAPSULE 900 MG PO 2000 stabilize mood [place] Carbonate 300 MG CAPSULE 600 MG PO 0800 stabilize mood Loratadine (Unknown Strength) TABLET (Unknown Dose) UNKNOWN (Reported) Naltrexone HCl 50 MG TABLET 50 MG PO DAILY reduce craving for alcohol Naltrexone 50 mg po daily Nicotine (Nicorelief) 2 MG GUM 2 MG PO Q2P PRN nicotine craving Olanzapine 10 MG TABLET 20 MG PO AT BEDTIME clear thoughts/stabilize mood Paroxetine HCl (Paxil) 20 MG TABLET 20 MG PO DAILY anti-depressant Propranolol HCl 10 MG TABLET 1 TAB PO DAILY UNKNOWN (Reported) Trazodone HCl 150 MG TABLET 150 MG PO BEDTIME sleep induction Triage Note: 36YO MALE TO TRIAGE STATING "HE TOOK 100 TABS OF 300MG GABAPENTIN TABLETS" STATES i CAN'T DO IT .I'M SUICIDAL" Triage Nurses Notes Reviewed? yes Onset: Abrupt Duration: minute(s): Timing: single episode today Injury Environment: home Severity: severe Modifying Factors: Improves With: rest. Associated Symptoms: depression HPI: 36 yo gentleman h/o depression, recently discharged from ED after 10 day stay, presents after an acute ingestion. He states that 20-30 minutes prior to arrival, he ingested 100 pills of neurontin 300mg. He states he also did some cocaine. He denies other ingestions or drugs. He states that, "I should have never left... I am depressed." He denies HI/hallucinations. (FANNY PRIETO,PARTHA Adkins) Past History Travel History Traveled to [place] past 21 day No Medical History Any Pertinent Medical History? 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 No (FANNY PRIETO,PARTHA Adkins) Review of Systems Review of Systems Constitutional: Reports: no symptoms. EENTM: Reports: no symptoms. Respiratory: Reports: no symptoms. Cardiovascular: Reports: no symptoms. GI: Reports: no symptoms. Genitourinary: Reports: no symptoms. Musculoskeletal: Reports: no symptoms. Skin: Reports: no symptoms. Neurological/Psychological: Reports: no symptoms. Hematologic/Endocrine: Reports: no symptoms. Immunologic/Allergic: Reports: no symptoms. All Other Systems: Reviewed and Negative (FANNY PRIETO,PARTHA Adkins) Physical Exam Physical Exam General Appearance: well developed/nourished, lethargic Head: atraumatic, normal appearance Eyes: Bilateral: normal appearance. Ears, Nose, Throat: normal pharynx, normal ENT inspection Neck: normal inspection, supple, full range of motion Respiratory: normal breath sounds, chest non-tender, no respiratory distress, quiet respiration, lungs clear Cardiovascular: regular rate/rhythm Gastrointestinal: normal bowel sounds, soft, non-tender, no organomegaly Back: normal inspection, normal range of motion Extremities: normal range of motion Neurologic/Psych: no motor/sensory deficits, awake, oriented x 3, flat affect Skin: intact, normal color, warm/dry Core Measures ACS in differential dx? No CVA/TIA Diagnosis: No Severe Sepsis Present: No Septic Shock Present: No (FANNY PRIETO,PARTHA Adkins) Progress Differential Diagnosis: alcohol ingestion vs drug abuse vs overdose vs other. Plan of Care: Orders Procedure Date/time Status VALPROIC ACID 01/14 0600 Active TSH REFLEX 01/14 0600 Active Regular Diet 01/13 D Active Admit to inpatient psych 01/13 1501 Active Patient Data - inpatient psych 01/13 1204 Active Admit to inpatient psych 01/13 1204 Active Continuous Observation Monitor 01/13 0622 Active Vital Signs 01/13 UNK Active Nursing Misc 01/13 UNK Active Alternative Nursing Therapy 01/13 UNK Active Activity/Ambulation 01/13 UNK Active Current Medications Sig/Min[place] Start time Last Medication Dose Stop Time Status Admin Paroxetine HCl 20 MG DAILY 01/14 1000 AC (Paxil) Olanzapine 20 MG AT BEDTIME 01/13 2200 AC (Zyprexa) Trazodone HCl 150 MG AT BEDTIME 01/130 AC (Desyrel) Divalproex Sodium 1,500 MG DAILY@01/13 AC (Depakote ER) Clonazepam 1 MG TID@0800,1400,01/13 1400 AC 01/13 (Klonopin 1MG Tab) 01/20 1359 1431 Acetaminophen 650 MG Q6P PRN 01/13 1215 AC (Tylenol) Al Hydroxide/Mg 30 ML Q4-6 PRN PRN 01/13 1215 AC Hydroxide (Maalox Plus) Benztropine Mesylate 1 MG Q6P PRN 01/13 1215 AC (Cogentin 1 MG Tablet) Benztropine Mesylate 1 MG Q6P PRN 01/13 1215 AC (Cogentin) Haloperidol 5 MG Q6P PRN 01/13 1215 AC (Haldol) Haloperidol 5 MG Q6P PRN 01/13 1215 AC (Haldol) Magnesium Hydroxide 30 ML AT BEDTIME PRN 01/13 1215 AC (Milk Of Magnesia) Laboratory Tests 01/13/17 1356: Urine Color Cancelled, Urine Clarity Cancelled, Urine pH Cancelled, Ur Specific Lynn Cancelled, Urine Protein Cancelled, Urine Ketones Cancelled, Urine Nitrite Cancelled, Urine Bilirubin Cancelled, Urine Urobilinogen Cancelled, Ur Leukocyte Esterase Cancelled, Ur Microscopic Cancelled, Urine Hemoglobin Cancelled, Urine Glucose Cancelled 7:15 am Patient signed out to me by Dr. Cornelius. Pending crisis evaluation and disposition. (MOE PRIETO,SOFI) Initial ED EKG: normal axis, normal intervals, normal p-waves, normal QRS complex, normal sinus rhythm Hand-Off Endorsed To: JOSE ANTONIO FISCHER MD Endorsed Time: 0700 Pending: consult (FANNY PRIETO,PARTHA Adkins) Diagnostic Imaging: Discussed w/RAD: CT Scan. Radiology Impression: PATIENT: MAYO SÁNCHEZ PRESENT AGE: 36 PATIENT ACCOUNT NO: [id number] : 79 LOCATION: [facility] ORDERING PHYSICIAN: PARTHA CORNELIUS MD SERVICE DATE: 01/11/17 EXAM TYPE: CAT - CT ABD & PELVIS W/O IV CONTRAS EXAMINATION: CT ABDOMEN AND PELVIS WITHOUT CONTRAST CLINICAL INFORMATION: Lower abdominal pain. COMPARISON: CT abdomen and pelvis dated 06/13/2016. TECHNIQUE: Multidetector volumetric imaging was performed from the superior aspect of the liver through the pubic symphysis. Sagittal and coronal reformatted images were obtained on the technologist's workstation. DLP: 512.04 mGy-cm FINDINGS: LUNG BASES: There is mild bibasilar linear scar/subsegmental atelectasis LIVER, GALLBLADDER, AND BILIARY TREE: The liver is normal in size, shape, and attenuation. No focal hepatic lesion or biliary ductal dilatation is present. The gallbladder is unremarkable with no evidence of radiopaque gallstones, gallbladder wall thickening, or obvious pericholecystic inflammatory changes. PANCREAS: Unremarkable. SPLEEN: Unremarkable. ADRENAL GLANDS: Unremarkable. KIDNEYS AND URETERS: The kidneys are normal in size, shape, and attenuation. No hydronephrosis, hydroureter, or calculi seen. No perinephric stranding. BLADDER: Unremarkable. GASTROINTESTINAL TRACT: The small and large bowel are unremarkable. The appendix is unremarkable. ABDOMINAL WALL: There are minimal fat-containing bilateral hernias. LYMPH NODES: Normal. VASCULAR: Unremarkable. PELVIC VISCERA: The prostate and seminal vesicles are unremarkable. OSSEOUS STRUCTURES: Unremarkable. IMPRESSION: Unremarkable examination. No bowel obstruction, free intraperitoneal air or abscess is seen. There is no appendicitis or diverticulitis. No urinary calculus or hydronephroureter is seen bilaterally. DICTATED BY: BENY YOO MD DATE/ TIME DICTATED:01/11/17742 JEWEL INSERTER:JEAN DATE/TIME TRANSCRIBED: 01/11/17742 CONFIDENTIAL, DO NOT COPY WITHOUT APPROPRIATE AUTHORIZATION. 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 01/11/2017 7:36:03 PM patient signed out to Dr. Wheeler at shift change control manager. 01/12/2017 7:28:11 PM patient signed out to me by Dr. Wheeler this morning at shift change control manager. Patient signed out to Dr. Cornelius. (AMADO PRIETO,JOSE ANTONIO No) Hand-Off Endorsed To: JOSE ANTONIO FISCHER MD Endorsed Time: 0700 Pending: consult (LARRY WHEELER MD) Departure Departure Disposition: STILL A PATIENT Condition: Stable Referrals: AISHA SUNG MD (PCP/Family) Departure Forms: Customer Survey General Discharge Information Comments 01/11/17, 2:55am.... discussed with poison control... pt medically clear if stable after 4-6 hours. (FANNY PRIETO,PARTHA Adkins) Departure Time of Disposition: 1501 Clinical Impression Primary Impression: Bipolar disease, chronic Secondary Impressions: Depression Psych Admission Note Psychiatric Admission: I have seen and evaluated MAYO SÁNCHEZ. I have also reviewed all the pertinent lab results and diagnostic results. MAYO SÁNCHEZ will be admitted to our inpatient Psychiatric unit for treatment and care. (MOE PRIETO,SOFI) ED Attending Observation Initial Observation Note: I have seen and personally examined MAYO SÁNCHEZ on 01/11/17 at 02:30. I agree with the current emergency department documentation. The disposition (admission or discharge) is uncertain at this time, he needs a period of observation for the following reason(s): pt with overdose of neurontin 30gm. I discussed this with poison control who states he will be medically cleared in 4- 6 hours. Until that time, we will monitor his mental status. The ED Nurse caring for this patient has been personally informed as to what the patient is being observed for. (FANNY PRIETO,PARTHA Adkins)
[2017-01-11 01:15] LABS: ABSOLUTE BASOPHIL COUNT 0 /CUMM (0.0-0.2); ABSOLUTE EOSINOPHIL COUNT 0 /CUMM (0.0-0.7); ABSOLUTE GRANULOCYTE CT 4.2 /CUMM (1.4-6.5); ABSOLUTE LYMPH COUNT 1.6 /CUMM (1.2-3.4); ABSOLUTE MONOCYTE COUNT 0.6 /CUMM (0.10-0.60); BASOPHIL % 0.3 % (0.0-2.0); EOSINOPHIL % 0.3 % (0-5); GRANULOCYTE % 64.9 % (42.2-75.2); HEMATOCRIT 44.3 % (42-52); MEAN CORPUSCULAR HGB 31.3 PG (27.0-31.0); MEAN CORPUSCULAR HGB CONC 35.2 G/DL (33.0-37.0); MEAN CORPUSCULAR VOLUME 89.1 FL (80.0-94.0); MEAN PLATELET VOLUME 6.1 FL (7.4-10.4); PLATELET COUNT 341 /CUMM (130-400); RBC DISTRIBUTION WIDTH 12.4 % (11.5-14.5); RED BLOOD CELL CT 4.97 /CUMM (4.70-6.10); WHITE BLOOD CELL COUNT 6.4 /CUMM (4.8-10.8)
--- NOTE | 2017-01-11 07:52 | CT SCAN REPORT ---
EXAMINATION: CT ABDOMEN AND PELVIS WITHOUT CONTRAST CLINICAL INFORMATION: Lower abdominal pain. COMPARISON: CT abdomen and pelvis dated 06/13/2016. TECHNIQUE: Multidetector volumetric imaging was performed from the superior aspect of the liver through the pubic symphysis. Sagittal and coronal reformatted images were obtained on the technologist's workstation. DLP: 512.04 mGy-cm FINDINGS: LUNG BASES: There is mild bibasilar linear scar/subsegmental atelectasis LIVER, GALLBLADDER, AND BILIARY TREE: The liver is normal in size, shape, and attenuation. No focal hepatic lesion or biliary ductal dilatation is present. The gallbladder is unremarkable with no evidence of radiopaque gallstones, gallbladder wall thickening, or obvious pericholecystic inflammatory changes. PANCREAS: Unremarkable. SPLEEN: Unremarkable. ADRENAL GLANDS: Unremarkable. KIDNEYS AND URETERS: The kidneys are normal in size, shape, and attenuation. No hydronephrosis, hydroureter, or calculi seen. No perinephric stranding. BLADDER: Unremarkable. GASTROINTESTINAL TRACT: The small and large bowel are unremarkable. The appendix is unremarkable. ABDOMINAL WALL: There are minimal fat-containing bilateral hernias. LYMPH NODES: Normal. VASCULAR: Unremarkable. PELVIC VISCERA: The prostate and seminal vesicles are unremarkable. OSSEOUS STRUCTURES: Unremarkable. IMPRESSION: Unremarkable examination. No bowel obstruction, free intraperitoneal air or abscess is seen. There is no appendicitis or diverticulitis. No urinary calculus or hydronephroureter is seen bilaterally.
--- NOTE | 2017-01-11 09:31 | ED PSYCH CRISIS CONSULTATION ---
See Addendum Crisis Consult Basic Assessment Date of Consult: 01/11/17 Responsible Person/Accompanied By: Patient walked himself to the emergency department Insurance Authorization: Insurance #1: Insurance name: LYNETTE CASANOVA Phone number: Policy number: [id number] Group number: Authorization number: ED Provider: Patient's ED Provider: FANNY PRIETO,PARTHA Adkins Primary Care Physician: Patient's PCP: LORETTA MARIEE MD PCP's Current Psychiatrist: No current psychiatrist Chief Complaint: Suicide attempt by medication overdose. Patient's Quote: "I relapsed...I was feeling shitty about life and myself." Present Illness: Patient is a 36 year old male who walked himself this morning to the [facility] emergency department. Patient reports he consumed over 100+ pills of gabapentin in a suicide attempt this morning. Patient was recently discharged after a stay of ~10 days from [facility] emergency department on Sunday January 08, 2017. The plan at that time was for patient to follow up with an intensive outpatient program (IOP) at [facility] in [place], [place]. In addition, psychiatrist Dr. Barry Lozano MD prescribed the following medications Patient indicates he did not refill any of his prescriptions and has not been compliant with his psychotropic medications. Patient admits to using cocaine on 01/08 and yesterday. Patient also reports some alcohol use (~24 ounces of beer) in the past day. Patient denies use of any other substances. Urine toxicology screening is only positive for cocaine. Patient has a longstanding history of mood disorder, substance abuse, and suicide attempts (reportedly ~15 in lifetime). Patient has historical diagnosis of Bipolar disorder. Patient has had past trials of [place]. 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 Patient is and has 4 children ages 11, 10, 6, and 3. Patient states thoughts of his children precipitated suicidal ideation and attempt. Patient states thoughts of not being a good father, spending child support money on drugs and being selfish contributes to his feelings of worthlessness / depression. Patient reports no major medical complaints. Patients primary care physician is Dr. Loretta Mariee MD in [place], [place]. Patient states he has experienced daily suicidal ideation since discharge from the emergency department on 01/08. Patient reports suicidal plans of overdosing on prescription medication, jumping of a bridge, and jumping off a 3rd floor balcony in his apartment building. Patient states he has high intent to attempt suicide again if he is to be discharged from the emergency department. Patient denies auditory or visual hallucination. Patient is oriented to person and place he is not aware of the time / date. There is no current indication of delusional thought, memory deficits, agitation, abnormal behaviors, or atypical speech. Patients mood was observed to be depressed with flat affect. During evaluation, patient continued to lay in his bed with minimal eye contact. Patient lists his sponsor Hilton Mekhi [phone] and his mother Mariann Espinoza [phone] as supports. Patient admits he has not had much contact with either in some time and has been isolated. This comic book writer contacted mother by phone. Mother states she has several concerns for patient and would like to see him committed in an inpatient or residential treatment setting for over 6 months. Mother believes patient is not likely to be consistent with any outpatient program and will relapse easily. Mother states eventually he will kill himself. Patient's Address: [address] [place] [address] Other Phone Number: Who Do You Live With? Patient/Self Family/Informants Interviewed: Mother Mariann Espinoza [phone] Sponsor Hilton Mekhi (could not be reached -voicemail left requesting call back.) Allergies - Coded Allergies: cyclobenzaprine (TREMORS 12/03/16) fluoxetine (Intermediate, ANXIETY 11/05/16) bupropion (Mild, Increase in afshan, reported on a previous admission 11/05/16) Current Medications - Scheduled Medications Atorvastatin Calcium 10 MG TABLET 1 TAB PO DAILY cholesterol #90 (Reported) Entered as Reported by PRERNA GAITAN on 08/12/161936 Clonazepam (Klonopin) 1 MG TABLET 1 MG PO 0800,1400,1999 for panic anxiety #21 TAB Prescribed by NANCY HAN MD on 11/27/16 Divalproex Sodium 500 MG TABLET. 1,500 MG PO 1999 mood stabilization #42 TAB Prescribed by NANCY HAN MD on 11/27/16 Gabapentin 300 MG CAPSULE 600 MG PO 0800,1500,2200 discomfort/shakiness/ anxiety #42 TAB Prescribed by NANCY HAN MD on 11/27/16 [place] Carbonate 300 MG CAPSULE 900 MG PO 2000 stabilize mood #42 TAB Prescribed by NANCY HAN MD on 11/27/16 [place] Carbonate 300 MG CAPSULE 600 MG PO 0800 stabilize mood #28 TAB Prescribed by NANCY HAN MD on 11/27/16 Naltrexone HCl 50 MG TABLET 50 MG PO DAILY reduce craving for alcohol #14 TAB Prescribed by NANCY HAN MD on 11/27/16 Olanzapine 10 MG TABLET 20 MG PO AT BEDTIME clear thoughts/stabilize mood #14 TAB Prescribed by NANCY HAN MD on 11/27/16 Paroxetine HCl (Paxil) 20 MG TABLET 20 MG PO DAILY anti-depressant #14 TAB Prescribed by NANCY HAN MD on 11/27/16 Propranolol HCl 10 MG TABLET 1 TAB PO DAILY UNKNOWN #28 (Reported) Entered as Reported by LAURA WETZEL on 12/03/16 1609 Trazodone HCl 150 MG TABLET 150 MG PO BEDTIME sleep induction #14 TAB Prescribed by NANCY HAN MD on 11/27/16 Scheduled PRN Medications Nicotine (Nicorelief) 2 MG GUM 2 MG PO Q2P PRN nicotine craving #1 GUM Prescribed by NANCY HAN MD on 11/27/16 Miscellaneous Medications Fluticasone Propionate (Unknown Strength) SPRAY.SUSP (Unknown Dose) UNKNOWN # 16 (Reported) Entered as Reported by LAURA WETZEL on 12/03/16 1610 Loratadine (Unknown Strength) TABLET (Unknown Dose) UNKNOWN #5 (Reported) Entered as Reported by LAURA WETZEL on 12/03/16 1610 Laboratory Results: Laboratory Tests 01/11/17 0105: Anion Gap 12, Estimated GFR > 60, BUN/Creatinine Ratio 22.0, Glucose 96, Calcium 9.7, Total Bilirubin 1.6 H, AST 29, ALT 53, Alkaline Phosphatase 66, Total Protein 7.4, Albumin 4.5, Globulin 2.9, Albumin/Globulin Ratio 1.6, CBC w Diff NO MAN DIFF REQ, RBC 4.97, MCV 89.1, MCH 31.3 H, RDW 12.4, MPV 6.1 L, Gran % 64.9, Lymphocytes % 25.2, Monocytes % 9.3, Eosinophils % 0.3, Basophils % 0.3, Absolute Granulocytes 4.2, Absolute Lymphocytes 1.6, Absolute Monocytes 0.6, Absolute Eosinophils 0, Absolute Basophils 0, PUBS MCHC 35.2, Salicylates < 1.0, Acetaminophen < 10.0 L, Valproic Acid < 10.0 L, Serum Alcohol < 10.0 01/11/17 0104: Valproic Acid Cancelled 01/11/17 0058: Salicylates Cancelled, Acetaminophen Cancelled 01/11/17 0050: Urine Opiates Screen < 100.00, Methadone Screen < 40, Barbiturate Screen 81, Ur Phencyclidine Scrn < 6.00, Amphetamines Screen < 100, U Benzodiazepines Scrn < 85, Urine Cocaine Screen > 1000 H, Urine Cannabis Screen 12.40, Urinalysis LIGHT H, Urine Color YEL, Urine Clarity CLEAR, Urine pH 6.5, Ur Specific Dolores 1.020, Urine Protein TRACE H, Urine Ketones NEG, Urine Nitrite NEG, Urine Bilirubin NEG, Urine Urobilinogen 1.0, Ur Leukocyte Esterase NEG, Ur Microscopic SEDIMENT EXAMINED, Urine RBC 1-3, Ur Epithelial Cells RARE, Urine Bacteria RARE H, Urine Mucus FEW, Urine Hemoglobin NEG, Urine Glucose NEG (CAROLINE BARREL BUNG REMOVER AND DUMPER,QUINCY) Past History Past Medical History Any Pertinent Medical History? unobtainable Neurological: delerium tremens, restless leg syndrome, ETOH withdrawal seizures EENT: NONE Cardiovascular: hypertension, hyperlipidemia Respiratory: NONE Gastrointestinal: NONE Hepatic: NONE Renal: NONE Musculoskeletal: Left knee meniscal tear Psychiatric: alcohol dependence, anxiety, bipolar disease, depression, insomnia, IV drug abuse, opioid dependence, substance abuse, Suicidal ideation, overdose suicide attempt X 15 Endocrine: NONE Blood Disorders: NONE Cancer(s): NONE [employer]/Reproductive: NONE Past Surgical History Surgical History: hernia repair-umbilical Psychosocial History Strengths/Capabilities: Motivated for treatment, and feels he would do well in a rehabilitation program for substance use. Physical Limitations (Interventions): None Psychiatric Treatment History Psych Treatment Psychiatric Treatment Yes Inpatient Treatment Yes Outpatient Treatment Yes Location of Treatment Inpatient-[facility], [facility] & other unspecified hospitals Reason for Treatment Suicidal ideation / attempts, bipolar disorder, substance use. Dates of Treatment Extended treatment history with multiple episodes. Response to Treatment Overall poor response as evidenced by multiple relapses and inability to manage mood disorder. 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 Route of use Inhalation Drug Use/Abuse 3 Substances Used/Abused Yes Substance Used/Abused Heroin First Use Unknown Last Used Over 1 year ago How much used/taken Prior use was heavy How often Daily use previously. For how long Intermittent use over several years Route of use Inhalation Drug Use/Abuse 4 Substances Used/Abused Yes Substance Used/Abused Marijuana First Use 13 Last Used Several weeks ago How much used/taken Unspecified How often Unknown For how long Intermittent use over several years Route of use Inhalation Drug Use/Abuse 5 Substances Used/Abused Yes Substance Used/Abused Other (list in comments) (PCP) First Use Unknown Last Used ~2 years ago How much used/taken Unspecified How often Unknown For how long Unknown Route of use Inhalation Substance Abuse Treatment Substance Abuse Treatment Past Substance Abuse TX Yes Inpatient Treatment Yes Outpatient Treatment Yes Location of Treatment [facility], [facility], and other unspecified rehabilitation programs Reason for Treatment Alcohol use, cocaine use and opiate use. Dates of Treatment Extended history with multiple episodes. Exact dates unknown Response to Treatment Overall poor as evidenced by several relapses and only brief periods of comlpete sobriety. Comments: - (CAROLINE MICHELLE,QUINCY) Current Mental Status Mental Status Orientation: Person, Place, Situation Affect: Depressed, Flat, Sad Speech: Soft Neuro-vegetative: Energy Decreased, Loss of Interest, Sleep Disturbance Appearance Appearance- Dress/Hygiene: Patient dressed in hospital attire - no remarkable features observed. Behaviors Thought Process: WNL Thought Content: WNL Memory: WNL Insight: Poor SI/HI Risk Assessment Past Suicidal Ideation/Attempts Yes (Several past suicide attempts) Current Suicidal Ideation/Att Yes (Endorses SI, intent, and plan) Past Homicidal Ideation/Att: No (Patient denies) Current Homicidal Ideation/Attempts No (Patient denies) Degree of Intent: Plan, States Intent Danger To: Self Gravely Disabled: Lack of Insight, Poor Impulse Control, Poor Judgment Risk Factors: access to lethal means, history of suicide atmpts, SA/MH hospitalized, substance abuse, isolate/no social support, poor impulse control, lack of outcome concern, lives alone, male, limited support Lethality Ratin PTSD Checklist PTSD Done? patient declined ED Management Sitter: Yes Restraints: No (Patient is calm & cooperative) (CAROLINE GUERREROW,QUINCY) DSM5/PS Stressors/Medical Prob Diagnosis' (DSM 5, Stressors, Medical): F31.9 Unspecified bipolar and related disorder F14.20 Stimulant Use Disorder, Cocaine, Severe F10.20 Alcohol Use Disorder, Mild F12.10 Cannabis Use Disorder, Mild Current GAF: 20 Comments: Recent suicide attempt (CAROLINE GUERREROW,QUINCY) Departure Disposition Psych Medical Clearance Date: 01/11/17 Medically Cleared at: 0800 Time Started: 0830 Time Ended: 0930 Date Disposition Established: 01/11/17 Time Disposition Established: 1230 Plan for Disposition - Modality: Inpatient Psychiatry Facility: To be determined - no beds available on [facility]'s inpatient unit Rationale for Disposition: Crisis evaluation reviewed with Dr. Umair Cerda MD and attending physician Dr. Dave Nicholson MD. Patient meets criteria for an inpatient psychiatry admission due to high risk factors: recent suicidal attempt in the past 24 hours by overdose on prescription medication, history of past suicide attempts, on- going risk of harm to self due to current suicidal ideation with intent and plan. Patient is currently calm, cooperative, and motivated to seek treatment. Patient asserts he would like to achieve sobriety from substance use and decrease depressive thoughts. Type of IP Admission: PEC Referrals LORETTA MARIEE MD (PCP/Family) (CAROLINE BARREL BUNG REMOVER AND DUMPER,QUINCY) Addendum Addendum Evening crisis re-eval. Pt expressed his disappointment in himself for relapsing and not following up with tx recommendations. Pt never went to [facility] and he got his money back from his sponsor as he did not want him holding on to it as planned. Pt denies active SI and feels safe in the ED but expresses that he is not safe to discharge as he would likely try to kill himself again. Pt requests inpt psych tx. Bed search continues. (NOELLE MICHELLE,KIMBERLYN) Addendum Addendum Checked in with pt. on 2nd shift on 01/12. pt. mumbled most responses. He stated he was doing "ok" but when asked if he was ok enough to go home he stated if he was sent home he "WOULD kill himself if he went home". Pt. was informed that a bed search was conducted but no beds in the [facility] were available and Crisis clincians would be checking with those hospitals tomorrow. (OPAL MICHELLE,ELVIN)
--- NOTE | 2017-01-11 14:08 | ED PSYCHIATRIST/APRN CONSULT ---
Psychiatrist/BACKROOM ASSOCIATE ED Consult Assessment and Plan: Patient seen Chart reviewed d/w Brim Plater: 36 y/o CM presented himself to [place] ED after he reportedly took over 100mg of gabapentin in a apparent Suicide in the context of relapse on crack cociane and alcohol. Patient is well known to [place] from numerous inpatient stays repeated ER evaluations numerous "subjective" od and polysubstance use was also recently dc' approx 10 days for similiar epsidoe. Reports that he didnt refill his psychiatric medications relapsed on crack cocaine and alcohol and took the pills. On evaluation patient was laying in bed minimally cooperative repeadetly stated "i dont know I want help" reported depressed mood poor sleep hopeless helpless. Patient has extensive inpatient stays long hx of polysubstance use and serveral behavioral outburts threatening behaviors agitation assualting staff. MSE: CM, dishevled laying in hospital bed, dressed in hospital gown, guarded irritable poor eye contact. soft slow speech depressed mood flat/dyshporic affect. concrete denies current SI/hi or psychosis. I/j both poor a/p Unspecified mood d/o r/o SIMD, r/o malingering Antisocial traits polysubstance dep no bed availabliltiy at this point look into referrals but patient has burned many bridges and his disposition might be difficult. currently [facility] beds [facility]. Would not recomend restarting any of his psychotropic given non compliance and substance related antisocial behaviors.
--- NOTE | 2017-01-12 14:01 | ED PSYCHIATRIST/APRN CONSULT ---
Psychiatrist/PHOTOGRAPHIC PROCESSOR ED Consult Assessment and Plan: patient seen chart reviewed d/w engineer/conductor He reports feeling the same, has been med compliant with regimen as of last night. reports fair sleep, hoping for placement. denies cravings urges to use denies si/hi or psychosis "i can stay safe while in here". Denies se of medication. has been behaviorally in control in the ER. CM, laying in bed, guarded limited eye contact. soft slow speech. depressed mood flat/dyshporic affect. linear denies si/hi or psychosis. i/j both limited polysubstance dep, depressive d/o antisocial traits continue bed search, health science writer spoke with Daysi cistern room working supervisor this morning in regards to pt placement and need for him to be continued on his psychiatric medication regimen which he has been since last night except a couple medications. continue with zyprexa/vpa as main medicatiosn and others to be adj restarted at accepting facility.
--- NOTE | 2017-01-12 16:25 | ED PSY CRISIS COLLATERAL NOTE ---
Collateral Note Collateral Note Family/Inform/Davi Contacts: Checked in with pt. on 2nd shift on 01/12. pt. mumbled most responses. He stated he was doing "ok" but when asked if he was ok enough to go home he stated if he was sent home he "WOULD kill himself if he went home". Pt. was informed that a bed search was conducted but no beds in the [facility] were available and Crisis clincians would be checking with those hospitals tomorrow.
--- NOTE | 2017-01-13 12:30 | ED PSYCHIATRIST/APRN CONSULT ---
Psychiatrist/ARTS AND CRAFTS INSTRUCTOR ED Consult Assessment and Plan: Patient seen at 10:48 a.m. He is a 36 yo WM with bipolar disorder and substance abuse. I know him from his prior treatment at [place], including his ER visit last episode of care. The patient was discharged from the ER on 01/08 to home with the plan to [facility]. He apparently did not go to [facility]. He presented to the ER on 01/11, reporting he had ingested #100 Neurontin 300 mg and had smoked crack and had drunk. Patient reported to staff "I relapsed... I was feeling shitting about life and myself." He told the cabinet worker he had not refilled any of his prescriptions and had not been compliant with his psychotropic medications. He told cabinet worker that since ER discharge on 01/08, he had had daily SI, with a variety of plans. The patient remains in the ER on a PEC. Bed search has not yielded placement. The patient was asleep in bed at 10:48 a.m. but was easily awakened. States he relapsed with crack and overdosed with 30,000 mg of gabapentin, which he had stored up at home. I asked if he had felt suicidal and had planned on suicide when he left the ER on 01/08, and he reported he was NOT feeling suicidal at the time of release on 01/08. Speech is nearly monotone. Affect is calm, depressed to flat. Feels alright. Sad 5/10. Anxiety 5/10. Feels hopeless and helpless but not worthless or guilty. Denies SI now. States he last had SI a couple of days ago. Denies HI, AH, VH and PI. Insight and judgment are poor. There is no apparent thought disorder or delusions. Ox3 except does not know the exact date in December 2016. Cognition is grossly intact and at usual baseline. Reports his sleep is alright on medications. Appetite is okay. Energy is alright. States "I know I need to go into rehab." IMPRESSION: Bipolar disorder, depressed, Cocaine use disorder, Alcohol use disorder, The patient is here after an intentional overdose, likely related to a cocaine crash, alcohol use and medication non-compliance. A bed had opened up on [facility] and the patient will be admitted there today on a PEC. A male 1:1 sitter will be ordered due to suicide risk and danger to others, based on past agitation.
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
[2017-01-13 15:43] VITALS: BP 144/82
== END 2017-01-13 17:19 ==
LOC: ERH 00:29 → ERHI 03:02 → EDBEDREQ 06:58 → ERHI 15:53 → ENTRNSPT 01-13 16:19 → CMPTRNSPT 01-13 17:10 → ERHI 01-13 17:19
PROVIDERS: ADMIT Pediatrics
DX: T42.6X1A Poisoning by other antiepileptic and sedative-hypnotic drugs, accidental (unintentional), initial encounter (principal); F14.90 Cocaine use, unspecified, uncomplicated; R45.851 Suicidal ideations; F32.9 Major depressive disorder, single episode, unspecified; F10.20 Alcohol dependence, uncomplicated; F41.9 Anxiety disorder, unspecified; F31.9 Bipolar disorder, unspecified; G47.00 Insomnia, unspecified; F11.20 Opioid dependence, uncomplicated; F17.200 Nicotine dependence, unspecified, uncomplicated; G25.81 Restless legs syndrome; I10 Essential (primary) hypertension; E78.5 Hyperlipidemia, unspecified
CPT/HCPCS: 74176; 80307; 81001; 93005; 93010; 96372; 96374; G0378; G0463; G0480; J0515; J1630; J1885

== ENCOUNTER 2017-01-13 11:59 | Inpatient (IN) | payer OTHER ==
[~2017-01-13] VITALS: Ht 188 cm; Wt 107.2 kg
--- NOTE | 2017-01-13 17:36 | NUR ---
Patient admitted from ED. Patient calm and cooperative, fidgeting with legs. Denies anxiety, denies pain. Patient speech clear and coherent, patient on 1:1 for safety. Patient denies SI/HI/AH/VH. Patient has contracted for safety of self and [facility] property. Patient slow and vague with responses to assessment, skin C/D/I. Pleasant, currently reports stable mood. [facility] ed patient to unit rules and regs, provided pamphlet. Patient read through and verbalizes understanding of new rules. Looking forward to assisting Martínez with mental health.
[2017-01-13 19:52] VITALS: BP 128/84
--- NOTE | 2017-01-14 06:16 | NUR ---
PT IS ON A 1:1 FOR SAFETY OF SELF AND OTHERS. PT RETURNS TO THE UNIT AFTER INGESTING PILLS IN A SUICIDE ATTEMPT. PT FEELS HE IS A FAILURE TO HIS 4 CHILDREN AND HE MIL LIKE OT TURN HIS LIFE AROUND. PT HAD BEEN IN THE ED FOR 11 DAYS RECENTLY.
[2017-01-14 07:35] VITALS: BP 125/73
[2017-01-14 08:06] VITALS: BP 125/73
[2017-01-14 12:22] VITALS: BP 118/55
--- NOTE | 2017-01-14 12:22 | CPS MD/APRN INITIAL ASSE PSYCH ---
See Addendum Psychiatric Admission Vp Genetic's Note Reviewed: Yes Patient Seen and Examined: Yes Identifying Information: 36 yo DWM with bipolar d/o and substance abuse, who was admitted on 01/13/17 on a voluntary basis, referred by [facility] ER. Chief Complaint: Reported overdosing with 30,000 mg of gabapentin in the context of cocaine and alcohol use. Reaction to Hospitalization: Feels good about being here. Wants to go to a rehab after discharge from here. History of Present Illness Onset of Illness: Chronic. Released from ER 01/08. Returned to ER 01/11 after overdose. Circumstances Leading to Admission: Gabapentin overdose. Cocaine and alcohol use. Chronic mental illness. Problem(s) Justifying Need for Admission: Overdose. 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 Patient did not go to [facility] after ER release last week. Sleep good when taking medication. Appetite: good. Energy: okay. Has not wanted to be on Neurontin since overdose. States it doesn't really help. VPA level today 49.8. Patient agrees to increase Depakote ER dose to 1,750 mg QHS. Past Psychiatric History Past Diagnosis(es)- if any: Bipolar d/o. Past Precipitating Factors- if any: Problems with substance use and treatment adherence. - Include inpatient and outpatient treatment Treatment History: Did not go to [facility]. Hx 28 hospitalizations, including at [place], [facility], [facility], [facility], [facility] and [place]. History of Suicide Attempts or Gestures 20 attempts, pill overdoses. Substance Abuse History: Tobacco at 1 ppd. Alcohol: "a little here and there." MJ: 1x/past month. Cocaine: $40-$3000/day smoked as crack. No opiates. Allergies: Coded Allergies: cyclobenzaprine (TREMORS 12/03/16) fluoxetine (Intermediate, ANXIETY 11/05/16) bupropion (Mild, Increase in afshan, reported on a previous admission 11/05/16) Home Med List: Non-compliant with: Zyprexa 20 mg qhs Depakote ER 1,500 mg qhs Remeron 15 mg qhs Neurontin 600 mg bid Propranolol 10 mg daily Trazodone 150 mg qhs prn Klonopin 1 mg qhs - Include any medical condition(s) that may - impact the patient's recovery/remission Past Medical History: Herniated disc in neck. Umbilical herniorraphy. 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 Substance Use: Alcohol: "everybody." Suicides: None. Social History Living Situation: Lives in apartment. Significant Relationships (family/friends): Has identified sponsor in the past. Education: High school/GED per crisis note. 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 Legal: Hx larceny 3, assault 3, possession of narcotics, violation of probation. Healthly Behaviors Screening Tobacco Screening Tobacco Use from ED Docu: Current Daily Use Daily Tobacco Use Amount/Type: => 5 Cigarettes daily - If tobacco counseling indicated - the following topics are required. - #1 Recognizing dangerous situations. - #2 Coping Skills. - #3 Basic information about quitting. Status of Tobacco Cessation Counseling: #1, #2 AND #3 Completed Cessation Med Status Nicotine Gum Ordered Alcohol Screening - ETOH screen POS if BAL >=80 or Audit-C>= M4/F3 Audit-C Score from Diag Assess: 6 Alcohol Use Screening Results: Pos per Audit C &/or BAL - If ETOH counseling indicated - the following topics are required. - #1 Express concern about the patient's - drinking at unhealthy levels, include informing - of national norms for moderate drinking: - men <= 14 drinks/week, max 4 drinks/occasion - women <= 7 drinks/week, max 3 drinks/occasion - #2 Providing feedback, including linking alcohol to - negative physical effects (liver injury, hypertension) - negative emotional effects (relationship problems and - depression) - negative occupational consequences (reduced work - performance) - #3 Advising the patient to abstain from alcohol or - to drink below national norms for moderate drinking - (as listed above). Status of ETOH Use Counseling: #1, #2 AND #3 Completed. Metabolic Screening - Screen if on a Neuroleptic Medication - Metabolic screening should include: - Blood Pressure, BMI, Glucose or Hgb A1c, & a - Lipid profile from within the past 365 days. Metabolic Screening () Not Applicable, patient not on a neuroleptic. OR () Patient on a neuroleptic(s) . Enter below results for Glucose or Hemoglobin A1C, and lipid panel if obtained during the last 365 days. BMI: 30.300 Blood Pressure: 118/55 Laboratory Results (If applicable): [x] Lab Cholesterol 223 MG/DL H 11/19/16 0405 Cholesterol/HDL Ratio 4 % 11/19/16 0405 Glucose 96 mg/dL 01/11/17 0105 HDL Cholesterol 52 mg/dL 11/19/16 0405 Hemoglobin A1c 5.1 % 11/19/16 0405 LDL Cholesterol, Calc 152 mg/dL H 11/19/16 0405 Triglycerides 97 mg/dL 11/19/16 0405 Exam and Plan Mental Status Examination Ambulation Status: Ambulatory, sitting in a chair in NAD. Appearance: Has long hair and a denson. Attitude towards examiner: Patient seen with medical student. Polite and cooperative. Psychomotor activity: WNL. No psychomotor agitation/retardation. Behavior: WNL. Quality of speech: Speech normal in volume, rate and tone. Affect: Calm and blunted to euthymic. Mood: "It's okay." Sad 4/10. Anxiety ~6/10. Denies feeling hopeless, helpless, worthless or guilty. Suicidal Ideation: Denies active and passive SI today. Reports last SI was maybe 2 days ago. Homicidal Ideation: Denies HI. Hallucinations: Denies AH and VH. Paranoid/Delusional Material: Denies PI and magical canales. Difficulties with thought organization: None. Thinking is clear, logical and goal-directed. Insight: Currently fair. Was poor prior to presentation. Judgment: Current fair. Was poor prior to presentation. Orientation: Ox3. Cognition: Grossly WNL. At usual baseline. Memory Function: Grossly WNL. Estimate of intellectual functioning: Average. 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 Impression/Plan Impression and Plan: Patient is here after repeated overdose in the context medication non-adherence and cocaine/alcohol use. - Include all active medical diagnosis that require tx DSM 5 Diagnosis(es): Bipolar d/o, depressed. Cocaine use d/o. Alcohol use d/o. - Initial Tx Plan for Active Psych & Medical Conditions Treatment Plan: Monitor on the unit for safety and mood disorder. Continue medications. Increase Depakote ER to 1,750 mg qhs with next level on Friday a.m. Refer as voluntary admission to [facility]. Continue 1:1 male sitter due to agitation risk (danger to others) and danger to self. - Factors that would help patient function - in a less restrictive setting. Factors: No longer suicidal.
--- NOTE | 2017-01-14 12:24 | SOCIAL WORKER TX PLAN PSYCH ---
Treatment Plan - Please Document: - Evidence that there is ongoing collaboration between - the patient and the interdisciplinary team, - including the patient's active participation and - responsibility for engaging in the treatment regimen, - and that the treatment plan is individualized and - relevant to the patient's conditions. - Treatment plan should reflect documentation indicating - that all active therapeutic efforts are included. Strengths/Capabilities: Motivated for treatment, and feels he would do well in a rehabilitation program for substance use. Physical Limitations (Interventions): None reported Patient Identified Trmt Goals: "I want to go to rehab" Discharge Plan: Rajinder Patel Problem/Goals #1 Problem #1: mood lability Goal (Short Term): Patient will explore medications to assist mood in stabilizing Goal (Fdc): Patient will be able to report a decrease in mood fluctuation Interventions: patient will be offered medication management with the GROUP PRESIDENT, patient will be offered groups on symptom management, coping skills, goals group, relaxation, art therapy, accupuncture. Superintendent Terminal will assess mood daily and strengths towards goals. Superintendent Terminal will assist in planning aftercare Problem/Goals #2 Problem #2: cocaine dependence/abuse Goal (Short Term): patient will identify triggers to relapse Goal (Fdc): patient will identify a relapse prevention plan Interventions: patient will be offered groups on relapse prevention, AA meetings, coping skills , relaxation skills. Superintendent Terminal will assist in getting patient into residential rehab. DSM5/PS Stressors/Medical Prob Diagnosis' (DSM 5, Stressors, Medical): F31.9 Unspecified bipolar and related disorder F14.20 Stimulant Use Disorder, Cocaine, Severe F10.20 Alcohol Use Disorder, Mild F12.10 Cannabis Use Disorder, Mild Current GAF: 20 Treatment Team - Responsibilities of members of the treatment team include: - Medication Management- MD or GROUP PRESIDENT - Medication Administration and Monitoring- Nurse - Group Therapy- Occupational Therapist - 1:1 Therapy,Disch Planning,family involvement-Superintendent Terminal
--- NOTE | 2017-01-14 12:24 | SOCIAL WORKER PROG NOTE PSYCH ---
Social Work Progress Note Progress Note Martínez and I discussed events leading up to his current hospitalization. Martínez shared that he relapsed on cocaine. Using 40-300.00 a day. Having money from working has been a trigger. He never followed through with his plan of going to [facility] from the crisis dept. When asked why he said he didn't anticipate getting a job so quickly and he chose to go to work vs. IOP. He then added "People didn't think I needed meds, so why would I need IOP." He explained that he was taken off all of his meds at [facility]. He said his symptoms worsened and he started experiencing more anxiety and aggression. He reported that he took 3 bottles of Gabapentin that he had at home in an attempt to kill himself. After he took the medication and began to get dizzy he decided to get himself to the ED, as at that point he wanted help. He reports that his goal at this point is to go to inpatient rehab. He is voluntarily agreeing to go to [facility]. I told him that sounded like a good plan. He reports no current SI/ HI. Reports mood is ok. Asked if anything has changed with supports in his life? He identified his AA sponsor as a support. He reports that he has been talking to him prior to admission. He is also open to having his Mom involved in tx, but states she can't come in for a meeting. Parents are both active alcoholics, but he reports his Dad is worse. He talks to his Mom regularly. Martínez called [facility]. They told him 2-3 weeks for admission. I will fax clinical there.
--- NOTE | 2017-01-14 14:15 | NUR ---
on1;1 for safety. has been visible on unit going to some groups. denies thoughts of self harm when asked. mood is stable, euthymic affect
[2017-01-14 16:09] VITALS: BP 150/82
--- NOTE | 2017-01-14 19:15 | NUR ---
PT IS CALM, COOPERATIVE WITH STAFF AND PEERS, AND COMPLIANT WITH UNIT RULES. BOTH IN AND OUT OF MILIEU, SLIGHTLY WIHTDRAWN, BUT DOES INTERACT WELL WITH OTHERS. CURRENTLY ON A ONE TO ONE WITH A PATIENT SAFETY MONITOR. MOOD IS STABLE, AFFECT APPEARS EUTHYMIC TO FULL RANGE, COMMUNICATION IS ORGANIZED AND APPEARS NORMAL IN ALL RESPECTS, AND APPETITE IS NORMAL. PT DENIES SI AT THIS TIME.
[2017-01-14 20:08] VITALS: BP 142/79
--- NOTE | 2017-01-14 20:45 | History & Physical ---
General Information and HPI MD Statement: I have seen and personally examined MAYO SÁNCHEZ and documented this H&P. The patient is a 36 year old M who presented with a patient stated chief complaint of "detox". Source of Information: patient, old records Exam Limitations: unable to give history History of Present Illness: 36-year-old white male with known history of bipolar disorder and substance use with recent overdose and substance abuse and cocaine relapse. Came in to the ER on 01/13/2017 on a voluntary basis it had indeed on gabapentin plus cocaine and some alcohol use. Patient states he wants help and rehabilitation. Allergies/Medications Allergies: Coded Allergies: cyclobenzaprine (TREMORS 12/03/16) fluoxetine (Intermediate, ANXIETY 11/05/16) bupropion (Mild, Increase in afshan, reported on a previous admission 11/05/16) Home Med list Atorvastatin Calcium 10 MG TABLET 1 TAB PO DAILY cholesterol (Reported) Clonazepam (Klonopin) 1 MG TABLET 1 MG PO 0800,1400,2000 for panic anxiety Divalproex Sodium 500 MG TABLET.DR 1,500 MG PO 2000 mood stabilization Fluticasone Propionate (Unknown Strength) SPRAY.SUSP (Unknown Dose) UNKNOWN ( Reported) Gabapentin 300 MG CAPSULE 600 MG PO 0800,1500,2200 discomfort/shakiness/ anxiety [place] Carbonate 300 MG CAPSULE 900 MG PO 2000 stabilize mood [place] Carbonate 300 MG CAPSULE 600 MG PO 0800 stabilize mood Loratadine (Unknown Strength) TABLET (Unknown Dose) UNKNOWN (Reported) Naltrexone HCl 50 MG TABLET 50 MG PO DAILY reduce craving for alcohol Naltrexone 50 mg po daily Nicotine (Nicorelief) 2 MG GUM 2 MG PO Q2P PRN nicotine craving Olanzapine 10 MG TABLET 20 MG PO AT BEDTIME clear thoughts/stabilize mood Paroxetine HCl (Paxil) 20 MG TABLET 20 MG PO DAILY anti-depressant Propranolol HCl 10 MG TABLET 1 TAB PO DAILY UNKNOWN (Reported) Trazodone HCl 150 MG TABLET 150 MG PO BEDTIME sleep induction Compliance With Home Meds: POOR Past History Medical History Neurological: delerium tremens, restless leg syndrome, ETOH withdrawal seizures EENT: NONE Cardiovascular: hypertension, hyperlipidemia Respiratory: NONE Gastrointestinal: NONE Hepatic: NONE Renal: NONE Musculoskeletal: Left knee meniscal tear Psychiatric: alcohol dependence, anxiety, bipolar disease, depression, insomnia, IV drug abuse, opioid dependence, substance abuse, Suicidal ideation, overdose suicide attempt X 15 Endocrine: NONE Blood Disorders: NONE Cancer(s): NONE NURSE GENERAL DUTY/Reproductive: NONE History of MRSA: No History of VRE: No History of CDIFF: No Surgical History Surgical History: hernia repair-umbilical Past Family/Social History Family History Relations & Conditions if any Relation not specified for: *No pertinent family history Psychosocial History Who Do You Live With? self Services at Home: None Primary Language: Maltese Functional Ability ADLs Independent: dressing, eating, toileting, bathing. Ambulation: independent IADLs Independent: shopping, housework, finances, food prep, telephone, transportation , medication admin. Review of Systems Review of Systems Constitutional: Reports: see HPI. Exam & Diagnostic Data Last 24 Hrs of Vital Signs/I&O Vital Signs Date Time Temp Pulse Resp B/P B/P Pulse O2 O2 Flow FiO2 Mean Ox Delivery Rate 01/15 2008 97.4 82 142/79 01/14 1609 83 150/82 01/14 1222 83 118/55 01/14 0806 96.7 67 125/73 01/14 0735 96.7 67 125/73 Intake & Output 01/14 1600 01/14 0800 01/14 0000 Intake Total Output Total Balance Patient 236 lb Weight Physical Exam General Appearance Alert, Oriented X3, Cooperative, No Acute Distress Skin No Rashes HEENT PERRLA, EOMI, Mucous Membr. moist/pink Neck Supple, No JVD, No thryomegaly, +2 Carotid Pulse wo Bruit, No LAD Lymphatic Axillary nl, Cervical nl Cardiovascular Regular Rate, No Murmurs Lungs Clear to Auscultation, Normal Air Movement Abdomen Normal Bowel Sounds, Soft, No Tenderness Neurological Exam Findings: Normal Gait, Normal Speech, Strength at 5/5 X4 Ext, Normal Tone, Sensation Intact, Cranial Nerves 3-12 NL, Reflexes 2+ Cranial Nerves II through XII: Intact Extremities No Cyanosis, No Edema, Normal Pulses Vascular Normal Pulses, Pulses Symmetrical Last 24 Hrs of Labs/Dieter: Laboratory Tests 01/14/17 0625: TSH &T3 &Free T4 Intrp 3.170, Valproic Acid 49.8 L Diagnostic Data ITS Data Unobtainable at this time Assessment/Plan As Ranked By This Provider Problem List: 1. Bipolar disease, chronic 2. Drug overdose, intentional Miscellaneous Miscellaneous Documentation Attending Case Discussed With: EMELY PRIETO,EDWARD G. Primary Care Physician: AISHA SUNG MD Patient sees these Specialists Psychiatry Level of Patient Care: [facility] Consults Needed: Consulting Specialty: Psychiatry Consulting Physician: Arjun Tejada MD Reason for Consult: bipolar disorder overdose and substance abuse
--- NOTE | 2017-01-15 06:47 | NUR ---
PATIENT WAS UP TO BATHROOM ONCE, OTHERWISE SLEPT ALL NIGHT.
[2017-01-15 08:30] VITALS: BP 143/77
[2017-01-15 12:24] VITALS: BP 143/77
[2017-01-15 12:25] VITALS: BP 143/77
--- NOTE | 2017-01-15 13:01 | NUR ---
TEAM DECISION MADE TO TAKE PT OFF 1:1, HAS THUS FAR OVERALL BEEN CALM, COOPERATIVE AND COMPLIANT TO MEDICATIONS, RULES AND REGULATIONS AND HAS MAINTAINED CONTROL OF SELF AND BEHAVIOR. MOOD STABLE WITH FULL RANGE AFFECT, + APPETITE, REPORTS + SLEEP, ATTENDING GROUPS AND CAN BE LOUD AT TIMES AND FOLLOWS REDIRECTION PROMPTS.
--- NOTE | 2017-01-15 13:30 | SOCIAL WORKER PROG NOTE PSYCH ---
Social Work Progress Note Progress Note Called rFedo Bernard ([facility]) and asked if she could help me prioritize Martínez for a bed at [facility]. Fredo said her concern is that Martínez is psychiatrically stable to go there. I told her that in my opinion, having worked with Martínez before he was at baseline and doing well. She said she will speak further with Marco A Segura (Help Desk Supervisor Compliance Specialist) and get back to me. I told her Martínez had gone there a year or so ago, so they may be familiar with him. Martínez was resting in bed after lunch. He reports that he had a good night and that his day was going well. Appetite seems good. Mood is okay. No concerns. Reports group is going ok. Gave him positive feedback so far for his positive behavior on the unit. Asked if he had anyone to help him get some clothes? I asked if his sponsor would be able to go in his apt. and help with that? He said maybe. He said he really didn't have alot of clothes at the house and what he had was probably dirty. He will ask his sponsor if he would be willing to get a few things and then he can wash them here.
--- NOTE | 2017-01-15 17:31 | CP SOUTH PROGRESS NOTE PSYCH ---
Psych (Inpt) Progress Note Progress Note Include the following elements, when applicable: Involvement in the active treatment of the patient with behavioral observations of the patient and the patient's response to the treatment. Review of the ongoing treatment process in the context of the treatment plan. Indication of how multi-disciplinary staff members are carrying out the treatment plan. Plans for future interventions and recommendations for revision of the treatment plan. Liaison with other physicians/providers. Progress Note: I discussed this patient's progress to date, current mental status, treatment process in the context of the treatment plan, and discharge planning with staff/ team in the daily morning inpatient team meeting. I also met with the patient myself in individual session. Current Medications Sig/Minerva Start time Last Medication Dose Route Stop Time Status Admin Acetaminophen 650 MG Q6P PRN 01/14 2000 AC PO Al Hydroxide/Mg 30 ML Q4-6 PRN PRN 01/14 2000 AC Hydroxide PO Benztropine Mesylate 1 MG Q6P PRN 01/13 2015 AC IM Benztropine Mesylate 1 MG Q6P PRN 01/14 2000 AC PO Clonazepam 0.5 MG FOUR TIMES A DAY 01/14 1800 AC 01/15 PO 01/21 1759 1321 Divalproex Sodium 1,750 MG AT BEDTIME 01/14 2200 AC 01/14 PO 2130 Haloperidol 5 MG Q6P PRN 01/14 2000 AC PO Haloperidol 5 MG Q6P PRN 01/14 2000 AC IM Magnesium Hydroxide 30 ML AT BEDTIME PRN 01/14 2000 AC PO Multivitamins 1 TAB DAILY 01/13 2007 AC 01/15 PO 0847 Nicotine 4 MG Q2P PRN 01/14 2000 AC 01/15 PO 1322 Olanzapine 20 MG AT BEDTIME 01/13 2200 AC 01/14 PO 2130 Paroxetine HCl 20 MG DAILY 01/14 1000 AC 01/15 PO 0847 Trazodone HCl 150 MG AT BEDTIME 01/13 2200 AC 01/14 PO 2131 Vital Signs Date Time Temp Pulse Resp B/P B/P Pulse O2 O2 Flow FiO2 Mean Ox Delivery Rate 01/15 1225 75 143/77 01/15 1224 75 143/77 01/15 0830 97.2 78 143/77 01/15 2008 97.4 82 142/79 A: Chart, progress notes, labs, vital signs and medication list reviewed. Vital signs within normal limits. No new lab results today. Reviewed patient's tx progress to date with nursing staff. They described the patient as being in good behavioral and physical control, somewhat withdrawn, observed sleeping in room for most of shift. Expressed no acute safety concerns. Per tx team decision, patient's 1:1 observation status will be discontinued. Patient is a 36-year old male who was admitted to [facility] voluntarily from [facility] ED on 01/13/17. He reports having overdosed on 30,000 mg of Gabapentin in the context of polysubstance abuse (Etoh and Cocaine). Utox (+) for cocaine in ED. Met with patient individually this evening. He was initially observed resting in room, but was agreeable to meet in office. He appeared somewhat guarded, cooperative, answering questions to the point and appropriately. Fairly groomed, dressed in blue hospital issued scrubs. Hair pulled back in pony tale. Stated he came to the hospital after overdosing on Gabapentin secondary to crack/cocaine use. Admitted to using $40-$300 worth of crack/cocaine daily, which he financed himself from the income he obtains from [employer] and [employer] jobs. Stated his goal of being here is to get stabilized on medications and get admitted into an inpatient rehab. Shared that he and ACCESS ANALYST submitted referrals to residential rehabs today. He remains hopeful that a placement will materialize. Rated anxiety a 4-5/10 (10 being the worst). Rated depression a 0/10 (10 being the worst). Reported feeling safe on unit; last endorsing SI in the ED. Denied current active and passive suicidal ideation, plans and intent. Denied homicidal ideation, auditory and visual hallucinations. No evidence of paranoia or amari delusions. Denied feeling hopeless, helpless, worthless and guilty. Reported his sleep and appetite are stable. Tolerating current medications "ok," denied untoward effects. Agreeable to continue Klonopin taper as he identified this to a potential barrier to rehab admissions. Informed patient that I will reduce Klonopin from 0.5mg QID to TID tomorrow. He is agreeable to plan. P: -D/C 1:1. Cont. monitoring on unit for safety, mood and SI. -Cont. Depakote ER 1,750mg QHS for mood stabilization. VPA level scheduled for . -Decrease Klonpin from 0.5mg QID to TID tomorrow. -Dispo planning per primary team.
--- NOTE | 2017-01-15 18:19 | NUR ---
PT IS CALM, COOPERATIVE WITH STAFF AND PEERS, AND COMPLIANT WITH UNIT RULES. BOTH IN AND OUT OF MILIEU, IS INTERACTING WELL WITH OTHERS. MOOD IS STABLE, AFFECT APPEARS EUTHYMIC TO FULL RANGE, COMMUNICATION IS ORGANIZED AND APPEARS NORMAL IN ALL RESPECTS, AND APPETITE IS NORMAL. PT DENIES SI AT THIS TIME.
[2017-01-15 19:38] VITALS: BP 135/74
[2017-01-16 07:41] VITALS: BP 126/63
--- NOTE | 2017-01-16 08:50 | CP SOUTH PROGRESS NOTE PSYCH ---
Psych (Inpt) Progress Note Progress Note Include the following elements, when applicable: Involvement in the active treatment of the patient with behavioral observations of the patient and the patient's response to the treatment. Review of the ongoing treatment process in the context of the treatment plan. Indication of how multi-disciplinary staff members are carrying out the treatment plan. Plans for future interventions and recommendations for revision of the treatment plan. Liaison with other physicians/providers. Progress Note: I discussed this patient's progress to date, current mental status, treatment process in the context of the treatment plan, and discharge planning with staff/ team in the daily morning inpatient team meeting. I also met with the patient myself in individual session. Current Medications Sig/Minerva Start time Last Medication Dose Route Stop Time Status Admin Acetaminophen 650 MG Q6P PRN 01/14 2000 AC PO Al Hydroxide/Mg 30 ML Q4-6 PRN PRN 01/14 2000 AC Hydroxide PO Benztropine Mesylate 1 MG Q6P PRN 01/13 2015 AC IM Benztropine Mesylate 1 MG Q6P PRN 01/14 2000 AC PO Clonazepam 0.5 MG TID 01/16 1000 AC 01/16 PO 01/23 0959 0755 Clonazepam 0.5 MG FOUR TIMES A DAY 01/14 1800 DC 01/15 PO 01/15 2300 2021 Divalproex Sodium 1,750 MG AT BEDTIME 01/14 2200 AC 01/15 PO 211 Haloperidol 5 MG Q6P PRN 01/14 2000 AC PO Haloperidol 5 MG Q6P PRN 01/14 2000 AC IM Magnesium Hydroxide 30 ML AT BEDTIME PRN 01/14 2000 AC PO Multivitamins 1 TAB DAILY 01/13 2007 AC 01/16 PO 0755 Nicotine 4 MG Q2P PRN 01/14 2000 AC 01/16 PO 0757 Olanzapine 20 MG AT BEDTIME 01/13 2200 AC 01/15 PO 211 Paroxetine HCl 20 MG DAILY 01/14 1000 AC 01/16 PO 075 Trazodone HCl 150 MG AT BEDTIME 01/13 2200 AC 01/15 PO 2109 Vital Signs Date Time Temp Pulse Resp B/P B/P Pulse O2 O2 Flow FiO2 Mean Ox Delivery Rate 01/16 0741 97.0 69 126/63 01/15 1938 97.4 81 135/74 01/15 1225 75 143/77 01/15 1224 75 143/77 A: Chart, progress notes, labs, vital signs and medication list reviewed. Vital signs within normal limits. No new lab results today. Reviewed the patient's progress to date with nursing staff. Nursing described the patient as being visible on the unit and in good behavioral control. Met with the patient this morning together with Amanda Peoples LCSW. He appeared in good physical and behavioral control. He engaged appropriately in conversation. Made good eye contact. Speech normal in rate tone and volume. Mood "ok." Affect calm and blunted. Reported intermittent anxiety, rated it a 5/10 (10 being the worst). Denied panic symptoms. Reported depression a 2/10 (10 being the worst). Denied feeling hopeless, helpless, worthless and guilty. Stated he is tolerating Klonopin taper well; continues to be in favor of this. Remains hopeful for direct admission from [facility] to [facility] for rehab. Idenitifed money is a trigger for him and that if he discharges before receiving rehab admission he will likely relapse and act unsafely. Insight/judgement slowly improving. Reported sleep and appetite are "good." Stated energy level is "so-so." Denied active and passive suicidal and homicidal ideation. Deneid auditory and visual hallucinations. Denied paranoid ideation. Thought process concrete, goal-directed. Cognition grossly intact. P: -cont. current medications. -VPA level tomorrow morning. -cont. contact w/ [facility] regarding rehab placement.
--- NOTE | 2017-01-16 10:27 | SOCIAL WORKER PROG NOTE PSYCH ---
Social Work Progress Note Progress Note Kellie Briones APRN and I met with Martínez together this morning. Martínez appeared to be doing well. Rates anxiety at a 5 today (1-10, 10 being worst), depression a 2 (same scale). Reviewed his discharge plan of going to [facility]. His only concern was being discharged before [place] was ready to take him. I told him that our team seems committed to having a door to door admission, due to the number of times he has presented at our ED. He didn't feel he would be successful if he were discharged back to the community, in fear of relapse. Asked if he spoke with his sponsor about going to his apt? He said he did and he was agreeable to come and get his keys and go to his place to get him some clothes. Martínez didn't offer any other concerns at this time. His demeanor was calm and cooperative. Called Fredo Bernard ([facility]) to follow up the conversation yesterday. Left a voicemail asking if she spoke with Marco A Segura.
[2017-01-16 12:15] VITALS: BP 119/73
--- NOTE | 2017-01-16 13:20 | NUR ---
PT VISIBLE IN THE MILIEU MOST OF THE DAY. HIS GOAL TODAY WAS TO ATTEND GROUPS, AND KEEP MIND BUSY. PT HAS BEEN GOING TO GROUPS THROUGHOUT THE DAY. HE HAS BEEN INTERACTING WITH PEERS AND STAFF APPROPRIATELY. PT IS COMPLIANT WITH STAFF DIRECTION AND DENIES THOUGHTS TO HURT HIMSELF.
[2017-01-16 16:32] VITALS: BP 141/71
--- NOTE | 2017-01-16 18:07 | NUR ---
PT IS CALM, COOPERATIVE WITH STAFF AND PEERS, AND COMPLIANT WITH UNIT RULES. OFTEN IN MILIEU, INTERACTING WELL WITH OTHERS. MOOD IS STABLE, AFFECT APPEARS EUTHYMIC TO FULL RANGE, COMMUNICATION IS ORGANIZED AND APPEARS NORMAL IN ALL RESPECTS, AND APPETITE IS NORMAL. PT DENIES SI AT THIS TIME.
[2017-01-16 19:56] VITALS: BP 141/79
--- NOTE | 2017-01-17 05:42 | NUR ---
PT LOOKING FOR LONG-TERM REHAB. PT REQUIRED REDIRECTION A FEW TIMES BUT, OVERALL, IN GOOD CONTROL. PT UP X 1.
[2017-01-17 07:33] VITALS: BP 137/88
--- NOTE | 2017-01-17 10:03 | SOCIAL WORKER PROG NOTE PSYCH ---
Social Work Progress Note Progress Note Met with Martínez this morning. He was doing yoga and stretching in the group room with his peers. He reported no SI/HI, no psychosis. His affect is flat, appears depressed/anxious. He rates his depression 0/10:2, and anxiety 0/10:3 currently, but anxiety fluctuates (increases during the day). He stated his anxiety ranges from 3 to 6. He reports he slept well, appetite is good. He had no complaints and/or issues. He has been "staying busy" - reading the AA Big Book. He stated he wants to go to rehab, no beds at [facility]. He is willing to go to rehab. Completed [facility] review online.
--- NOTE | 2017-01-17 11:24 | NUR ---
PT IS STABLE WITH FULL RANGE OF AFFECT, VISIBLE WITHIN THE COMMUNITY AND INTERACTING WITH PEERS/STAFF MEMBERS. PT CAN BE LOUD AT TIMES AND OFTEN REQUIRES REDIRECTION. PT WAS IN THE GROUP ROOM WITH OTHER PT'S DOING YOGA EXERCISES. PT HAS BEEN APPROPRIATE THIS AM. VS ARE STABLE AND DENIES ANY SI/HI TO THIS MHW.
[2017-01-17 12:25] VITALS: BP 137/79
--- NOTE | 2017-01-17 13:50 | CP SOUTH PROGRESS NOTE PSYCH ---
Psych (Inpt) Progress Note Progress Note Include the following elements, when applicable: Involvement in the active treatment of the patient with behavioral observations of the patient and the patient's response to the treatment. Review of the ongoing treatment process in the context of the treatment plan. Indication of how multi-disciplinary staff members are carrying out the treatment plan. Plans for future interventions and recommendations for revision of the treatment plan. Liaison with other physicians/providers. Progress Note: I discussed this patient's progress to date, current mental status, treatment process in the context of the treatment plan, and discharge planning with staff/ team in the daily morning inpatient team meeting. I also met with the patient myself in individual session. Current Medications Sig/Minerva Start time Last Medication Dose Route Stop Time Status Admin Acetaminophen 650 MG Q6P PRN 01/14 2000 AC PO Al Hydroxide/Mg 30 ML Q4-6 PRN PRN 01/14 2000 AC Hydroxide PO Benztropine Mesylate 1 MG Q6P PRN 01/13 2015 AC IM Benztropine Mesylate 1 MG Q6P PRN 01/14 2000 DC 01/16 PO 1113 Clonazepam 0.5 MG TID 01/16 1000 AC 01/17 PO 01/23 0959 0802 Divalproex Sodium 1,750 MG AT BEDTIME 01/14 2200 AC 01/16 PO 2123 Haloperidol 5 MG Q6P PRN 01/14 2000 DC 01/16 PO 1113 Haloperidol 5 MG Q6P PRN 01/14 2000 AC IM Magnesium Hydroxide 30 ML AT BEDTIME PRN 01/14 2000 AC PO Multivitamins 1 TAB DAILY 01/13 2007 AC 01/17 PO 0803 Nicotine 4 MG Q2P PRN 01/14 2000 AC 01/17 PO 1231 Olanzapine 2.5 MG Q4 HRS NEEDED PRN 01/17 1400 UNVr PO Olanzapine 20 MG AT BEDTIME 01/13 2200 AC 01/16 PO 2123 Paroxetine HCl 20 MG DAILY 01/14 1000 AC 01/17 PO 0803 Trazodone HCl 150 MG AT BEDTIME 01/13 2200 AC 01/16 PO 2123 Vital Signs Date Time Temp Pulse Resp B/P B/P Pulse O2 O2 Flow FiO2 Mean Ox Delivery Rate 01/17 1225 83 137/79 01/17 0733 97.1 70 137/88 01/16 1956 96.8 76 141/79 01/16 1632 74 141/71 Laboratory Tests 01/17 0632 Toxicology Valproic Acid (50 - 120 ug/mL) 77.5 A: Chart, progress notes, labs, vital signs and medication list reviewed. Vital signs within normal limits. VPA=77.5. Met with patient this afternoon. Stated he was concerned about the time between scheduled Klonopin doses, expressed these were too far apart. Agreed to change to scheduled TID (0800, 1400, 1999). Reminded patient that we will continue to taper Klonopin, which he seemed hesitant about but overall was agreeable as he knows staying on it will be a barrier to getting into rehab. Pleasant, cooperative on encounter. Described his mood as "ok." Stated he continues to have generalized, fluctuating anxiety; unable to identify triggers; not in favor of retrialing Gabapentin, trialing Atarax or propranolol. Stated Zyprexa has helped target symptoms in past, in addition to racing thoughts. Agreeable to adding prn Zyprexa. Affect calm, blunted. Appropriate eye contact. Speech normal in rate, tone, volume. Showed good behavioral and physical control. Reported continued mild racing thouts. Denied acute symptoms of depression, passive or active suicidal ideation, plans, intent. Denied homicidal ideation, auditory/ visual hallucinations, paranoid ideation. No evidence of delusional thought content. Thought process linear, goal-directed. Informed patient that Marco A Segura of [facility] addiction services will be coming to the unit at some point to interview him for CVH. Patient hopeful that this will happen soon. Patient reported tolerating medications well, denied untoward effects. Agreeable to continue taking. Patient is aware and agreeable to decreasing Klonopin from 0.5mg TID to BID (0800, 1400) on Friday, 01/19. P: -cont. monitoring on unit for safety, mood, SI. -D/C prn haldol. Start prn zyprexa 2.5mg Q4H prn agitation/racing thoughts. -cont. depakote er 1750mg QHS for mood stabilization. If continued racing thoughts consider increasing to 2000mg QHS. -await CVH interview and placement. -Cont. Klonopin taper as ordered.
[2017-01-17 15:52] VITALS: BP 139/78
[2017-01-17 19:40] VITALS: BP 144/91
[2017-01-18 07:56] VITALS: BP 118/78
[2017-01-18 11:59] VITALS: BP 139/77
--- NOTE | 2017-01-18 12:44 | NUR ---
PT IS PRESENT WITHIN THE MILIEU THROUGHOUT THE DAY, NO ISSUES OR COMPLAINTS NOTED OR REPORTED, SOCIAL WITH PEERS AND APPROPRIATE THUS FAR WITH STAFF, ATTENDED GROUPS TODAY AND STATED HE WOULD "GO WITH THE FLOW" AND REPORTED + SLEEP AND FEELS "FINE". PT ALSO WENT TO [facility] WHERE HE SHARED THAT HE ENJOYS TO JOURNAL DAILY, + APPETITE/MOOD AND FULL RANGE AFFECT.
--- NOTE | 2017-01-18 14:55 | CP SOUTH PROGRESS NOTE PSYCH ---
Psych (Inpt) Progress Note Progress Note Include the following elements, when applicable: Involvement in the active treatment of the patient with behavioral observations of the patient and the patient's response to the treatment. Review of the ongoing treatment process in the context of the treatment plan. Indication of how multi-disciplinary staff members are carrying out the treatment plan. Plans for future interventions and recommendations for revision of the treatment plan. Liaison with other physicians/providers. Progress Note: No issues overnight, has been calm and cooperative overall. Stated that the longest time he was clean was 10 months, recently was 3 weeks. Is going to [facility] for rehab program, 45 days, and is looking forward to staying sober. He stated that he is agreeable to continue increasing his depakote for his racing thoughts. MSE: young man, no psychomotor changes noted, no tics or tremors noted. Pleasant , calm. His speech is normal. His affect is constricted, his mood is neutral. He complains of racing thoughts, does not appear overtlyt anxious. There is no evidence of internal preoccupation. Denied active thoughts of harm to self/ others. Insight and judgment are adequate. Plan: will continue titrating up depakote to 2000mg at night time to target racing thoughts.
[2017-01-18 15:30] VITALS: BP 135/58
[2017-01-18 20:38] VITALS: BP 145/79
--- NOTE | 2017-01-18 21:55 | NUR ---
PT IS VISIBLE ON UNIT, SOCIAL WITH PEERS AND WATCHING TV IN LOUNGE. COOPERATIVE AND COMPLIANT WITH STAFF. ATTENDED WRAP UP MEETING. NO COMPLAINTS OR SI REPORTED. PT HAS A STABLE MOOD AND FULL RANGE AFFECT.
--- NOTE | 2017-01-19 06:17 | NUR ---
PATIENT UP TO BATHROOM ONCE, OTHERWISE SLEPT ALL NIGHT.
[2017-01-19 07:55] VITALS: BP 147/75
[2017-01-19 12:14] VITALS: BP 152/83
--- NOTE | 2017-01-19 12:31 | NUR ---
PT IS PRESENT WITHIN THE MILIEU FOR MOST IF NOT ALL OF THE DAY AND INTERACTS WITH PEERS AND OFTEN LOUD/SINGING TO SELF ETC AND SELF-REDIRECTS, MOOD STABLE WITH FULL RANGE AFFECT, MEDICATION COMPLIANT, ATTENDING GROUPS: IN PLANNING REPORTED + MOOD/SLEEP AND GOAL FOR THE DAY TO RELAX, GO TO GROUPS AND HAVE A VISIT. PT ALSO WENT TO [facility] WHERE HE HAD + PARTICIPATION. NO ISSUES OR COMPLAINTS REPORTED OR OBSERVED.
--- NOTE | 2017-01-19 13:10 | CP SOUTH PROGRESS NOTE PSYCH ---
Psych (Inpt) Progress Note Progress Note Include the following elements, when applicable: Involvement in the active treatment of the patient with behavioral observations of the patient and the patient's response to the treatment. Review of the ongoing treatment process in the context of the treatment plan. Indication of how multi-disciplinary staff members are carrying out the treatment plan. Plans for future interventions and recommendations for revision of the treatment plan. Liaison with other physicians/providers. Progress Note: Stated that he was anxious and having trouble sleeping last night, asked for 1x extra dose of clonazepam tonight, which will be ordered. Stated that apart from this he feels better about his sobriety, his sponsor is coming today and he has been speaking with others in recovery on the phone. His mood is brighter and hehas been socializing more. He had no change on increase of depakote. MSE: young man, no psychomotor changes noted, no tics or tremors noted. Pleasant , calm. His speech is regular rate and rhythm. His affect is constricted but reactive, his mood is good. His thought process is free of delusional thinking. There is no evidence of thoughts to harm himself or anyone else. There is no evidence of internal preoccupation. Insight and judgment are adequate. Plan: will continue titrating up depakote to 2000mg at night time to target racing thoughts. 1x dose clonazepam 0.5mg at night time tonight, then return to twice daily taper.
[2017-01-19 15:45] VITALS: BP 147/83
[2017-01-19 20:12] VITALS: BP 147/74
--- NOTE | 2017-01-19 23:15 | NUR ---
PT REPORTED HAVING A GOOD DAY AFTER TALKING TO FRIENDS OF AA. HE ALSO TALKED TO HIS MOTHER ON THE PHONE AND OFFERED GOOD INSIGHT TOWARDS HIS SITUATION. HE CAN SOMETIMES APPEAR TO THINK WITH SLIGHT GRANDIOSITY. PT HAS DENIED ANY THOUGHTS OF SI WHEN ASKED BY STAFF.
--- NOTE | 2017-01-20 05:40 | NUR ---
PT UP X 1. PT SLEPT. PT HAD TO BE ASKED X 1 TO SHARE THE PHONE ON EVENINGS.
[2017-01-20 07:32] VITALS: BP 132/91
--- NOTE | 2017-01-20 08:19 | CP SOUTH PROGRESS NOTE PSYCH ---
Psych (Inpt) Progress Note Progress Note Include the following elements, when applicable: Involvement in the active treatment of the patient with behavioral observations of the patient and the patient's response to the treatment. Review of the ongoing treatment process in the context of the treatment plan. Indication of how multi-disciplinary staff members are carrying out the treatment plan. Plans for future interventions and recommendations for revision of the treatment plan. Liaison with other physicians/providers. Progress Note: I discussed this patient's progress to date, current mental status, treatment process in the context of the treatment plan, and discharge planning with staff/ team in the daily morning inpatient team meeting. I also met with the patient myself in individual session. Current Medications Sig/Minerva Start time Last Medication Dose Route Stop Time Status Admin Acetaminophen 650 MG Q6P PRN 01/14 2000 AC PO Al Hydroxide/Mg 30 ML Q4-6 PRN PRN 01/14 2000 AC Hydroxide PO Benztropine Mesylate 1 MG Q6P PRN 01/13 2015 AC IM Clonazepam 0.5 MG 01/19 DC 01/19 PO 01/19 Clonazepam 0.5 MG 0800,1400 01/19 0800 AC 01/20 PO 01/21 2300 0812 Divalproex Sodium 2,000 MG AT BEDTIME 01/18 2200 AC 01/19 PO 211 Haloperidol 5 MG Q6P PRN 01/14 2000 AC IM Magnesium Hydroxide 30 ML AT BEDTIME PRN 01/14 2000 AC PO Multivitamins 1 TAB DAILY 01/13 2007 AC 01/20 PO 0812 Nicotine 4 MG Q2P PRN 01/14 2000 AC 01/20 PO 0707 Olanzapine 2.5 MG Q4 HRS NEEDED PRN 01/17 1400 AC 01/18 PO 2239 Olanzapine 20 MG AT BEDTIME 01/13 2200 AC 01/19 PO 211 Paroxetine HCl 20 MG DAILY 01/14 1000 AC 01/20 PO 08 Trazodone HCl 150 MG AT BEDTIME 01/13 2200 AC 01/19 PO 211 Vital Signs Date Time Temp Pulse Resp B/P B/P Pulse O2 O2 Flow FiO2 Mean Ox Delivery Rate 01/20 0732 95.7 87 132/91 01/20 2012 98.2 147/74 01/19 1545 89 147/83 01/19 1214 79 152/83 A: Chart, progress notes, vital signs, labs and medication list reviewed. Depakote ER increased from 1750mg to 2000mg QHS on 01/18/17. Reviewed patient's progress to date with nursing staff. No significant events from this weekend. Patient described as entitled at times, in fair behavioral and physical control; had good visits over the weekend and attended unit AA meeting over the weekend. Met with patient this morning at 08:15. He describes having a good weekend, received visits from his AA sponsor and two other friends from . States he has been making a daily effort to make phone contact with AA friends to get back into a "sober mindest." Looks forward to eventual CVH placement. States mood is "good." Affect calm, blunted, appropriate. Speech normal in rate, tone, volume. Calm, cooperative. Eye contact appropriate. Normal psychomotor activity. Denies further racing thoughts since increase in Depakote ER. Rates anxiety a 5/10 (10 being the worst) related to Klonopin taper. Rates depression a 0/10 (10 being the worst). Reviewed with patient that we will continue to taper down Klonopin, but we will reassess daily further decreases. Reports overall that he is tolerating taper well. Denies feeling hopeless, helpless, worthless, guilty. Denies active/passive suicidal and homicidal ideation. Denies auditory/visual hallucinations, paranoia, amari delusions. Reports sleep and appetite are "great." Describes energy level as "good." Insight/judgement improving. P: -cont. Klonopin 0.5mg BID taper as ordered. -cont. Depakote ER 2000mg QHS for racing thoughts. -F/u regarding status of CVH wait list.
--- NOTE | 2017-01-20 10:34 | SOCIAL WORKER PROG NOTE PSYCH ---
Social Work Progress Note Progress Note Called Fredo Bernard ([facility]) looking for an update as to what conversations were had with Gustabo Segura ([facility] [employer] Supervisor Renal Dialysis Technician). Left her a voicemail on her cell. Martínez seems to be in a good place today. Mood was appeared stable. No SI/HI. Talked about the visitors he had over the weekend from . His sponsor was here as well. He is very focused on remaining clean and sober and making his sobriety his number one priority at this time. He talked about possibly going to a fpc residential after [facility]. He isn't concerned about losing his housing, job ect.. He just wants to make sure he can remain clean. He talked about how his 10 year old daughter doesn't want to talk to him and is angry with him right now. He stated "she has the right to be mad at me." He wants to be able to do provide child support for his kids and be there for them. Talked about the guilt and shame that goes along with not being able to provide to them, but acknowledged that having money is a trigger to his addiction. He feels that living alone is a problem for him and that he may want to live at a sober house or live with someone that will hold him more accountable. I told him that I will try again to follow up about Gustabo Segura visiting tomorrow, as I got no answer today.
[2017-01-20 12:33] VITALS: BP 146/81
--- NOTE | 2017-01-20 13:07 | NUR ---
PT HAS BEEN IN THE MILIEU TODAY. HIS GOAL WAS TO ATTEND GROUPS. PT HAS BEEN MEETING HIS GOAL AND GOING TO GROUPS THROUGHOUT THE DAY. IN THE MILIEU PT HAS BEEN INTERACTING WITH PEERS, HE NEEDED TO BE REDIRECTED ABOUT KEEPING IT APPROPRIATE WHICH PT COMPLIED AND DID SO. PT DENIES THOUGHTS TO HURT HIMSELF WHEN ASKED.
[2017-01-20 16:38] VITALS: BP 142/80
[2017-01-20 20:06] VITALS: BP 140/88
--- NOTE | 2017-01-21 06:20 | NUR ---
PT SLEPT AFTER HALDOL 5 PRN AT 2245. PT UP X 1.
[2017-01-21 07:37] VITALS: BP 132/82
--- NOTE | 2017-01-21 10:27 | SOCIAL WORKER PROG NOTE PSYCH ---
Social Work Progress Note Progress Note Called Eliot Cuevas and asked to be directed to Gustabo Segura's extension. I left a voicemail asking if he would be coming out to interview Martínez on the unit per discussion Dr. Fleming had with Dr. Greene last week. Martínez called [facility] this afternoon and was able to schedule a phone screening for tomorrow at 8am. They informed him that they may be able to get him in this week. Martínez shared that his Mom is available for a phone conference anytime after 3pm this week. I told him I would see about coordinating that with Kellie Briones APRN. Martínez continues to be driven on reasons to remain sober. He mentioned that he ended up speaking with his 10 year old daughter last night. Talked about how being consistent with his kids was important and just letting them know he cares about them. Asked how his mood was today? He reports feeling well. He denied any hypomanic feelings. He said sometimes he feels "agitated" due to anxiety and feeling like he is "trapped" here. Reports sleeping good and eating good.
--- NOTE | 2017-01-21 10:30 | CP SOUTH PROGRESS NOTE PSYCH ---
Psych (Inpt) Progress Note Progress Note Include the following elements, when applicable: Involvement in the active treatment of the patient with behavioral observations of the patient and the patient's response to the treatment. Review of the ongoing treatment process in the context of the treatment plan. Indication of how multi-disciplinary staff members are carrying out the treatment plan. Plans for future interventions and recommendations for revision of the treatment plan. Liaison with other physicians/providers. Progress Note: I discussed this patient's progress to date, current mental status, treatment process in the context of the treatment plan, and discharge planning with staff/ team in the daily morning inpatient team meeting. I also met with the patient myself in individual session. Current Medications Sig/Minerva Start time Last Medication Dose Route Stop Time Status Admin Acetaminophen 650 MG Q6P PRN 01/14 2000 AC PO Al Hydroxide/Mg 30 ML Q4-6 PRN PRN 01/14 2000 AC Hydroxide PO Benztropine Mesylate 1 MG Q6-PRN PRN 01/20 164 AC PO Benztropine Mesylate 1 MG Q6P PRN 01/13 2015 AC IM Clonazepam 0.5 MG 0800,1400 01/19 0800 AC 01/21 PO 01/21 2300 0844 Divalproex Sodium 2,000 MG AT BEDTIME 01/18 2200 AC 01/20 PO 2128 Haloperidol 5 MG Q6-PRN PRN 01/20 1645 AC 01/20 PO 2248 Haloperidol 5 MG Q6P PRN 01/14 2000 AC IM Magnesium Hydroxide 30 ML AT BEDTIME PRN 01/14 2000 AC PO Multivitamins 1 TAB DAILY 01/13 2007 AC 01/21 PO 0843 Nicotine 4 MG Q2P PRN 01/14 2000 AC 01/21 PO 0842 Olanzapine 2.5 MG Q4 HRS NEEDED PRN 01/17 1400 DC 01/20 PO 1243 Olanzapine 20 MG AT BEDTIME 01/130 AC 01/20 PO 2127 Paroxetine HCl 20 MG DAILY 01/14 1000 AC 01/21 PO 0843 Trazodone HCl 150 MG AT BEDTIME 01/13 2200 AC 01/20 PO 2127 Vital Signs Date Time Temp Pulse Resp B/P B/P Pulse O2 O2 Flow FiO2 Mean Ox Delivery Rate 01/21 0737 97.1 88 132/82 01/20 2006 97.7 80 140/88 01/20 1638 80 142/80 01/20 1233 76 146/81 A: Chart, progress notes, vital signs, labs and medication list were reviewed. Vital signs wnl. No new lab results today. Met with the patient individually at 10:37AM. He describes being in "good spirits". Remains focused on sobriety and continues to connect by phone with AA friends. States he is practicing patience while waiting to get into [facility] for rehab. Feels increase in Depakote is helping manage anxiety, although expresses concern that anxiety will worsen once Klonopin tapers off completely. States he finds anxiety relief from prn Haldol. Rates anxiety a 5/10 (10 being the worst). Rates depression a 0/10 (10 being the worst). He offers no complaints. Mood and affect appear brighter. Speech normal in rate, tone and volume. Eye contact appropriate. Easily engages in conversation. Denies feeling hopeless, helpless, worthless or guilty. Denies racing thoughts. Denies passive and active suicidal ideation, plans and intent. Denies homicidal ideation, auditory and visual hallucinations. No evidence of paranoia or delusions. Describes sleeping well. Reports his appetite and energy level are good. Reports tolerating Klonopin taper and medication adjustments well, denies untoward effects. Patient agreeable to continuing w/ present tx plan. P: -cont. Depakote ER 2000mg QHS. VPA level tomorrow AM. -cont. Klonopin taper as ordered 0.5mg BID, to drop down to 0.5mg daily on 01/23. Taper will end after dosing on 01/25. -cont. monitoring on unit for safety ,mood, suicidal ideation. -f/u w/ [facility] regarding timeline for screening/placement.
--- NOTE | 2017-01-21 11:19 | SOCIAL WORKER PROG NOTE PSYCH ---
Social Work Progress Note Progress Note MAYO SÁNCHEZ [id number] 1980 MAYO SÁNCHEZ [id number] Pended Authorization # Client Authorization # Type of Request [id number] CONCURRENT Date of Admission/ Start of Services Requested From Submission Date 01/13/2017 01/21/2017 01/21/2017
[2017-01-21 12:31] VITALS: BP 130/80
--- NOTE | 2017-01-21 13:08 | NUR ---
PT IS COMPLIANT AND COOPERATIVE. MOOD IS STABLE WITH A FULL RANGE AND BRIGHT AFFECT. PT DENIES SI AT THIS TIME, NO COMPLAINTS OFFERED. PT SPEECH CAN BE LOUD AT TIMES, PT NOTED TO BE SINGING LOUDLY WELL. PT IS PRESENT ON THE UNIT AND INTERACTING WELL WITH PEERS AND STAFF. PT IS ATTENDING GROUPS. VITALS ARE STABLE, APPETITE IS GOOD.
[2017-01-21 16:41] VITALS: BP 134/86
--- NOTE | 2017-01-21 18:22 | NUR ---
PT IS CLAM, COOPERATIVE WITH STAFF AND PEERS, AND COMPLIANT WITH UNIT RULES. OFTEN IN [place], INTERACTING WELL WITH OTHERS. MOOD IS STBALE, AFFECT APPEARS EUTHYMIC TO FULL RANGE, COMMUNICATION IS ORGANIZED AND APPEARS NORMAL IN ALL RESPECTS, AND APPETITE IS NORMAL. PT DENIES SI AT THIS TIME.
[2017-01-21 19:48] VITALS: BP 138/88
--- NOTE | 2017-01-22 07:15 | NUR ---
PT SLEPT WELL. PT WILL HAVE A PHONE SCREENING AT 0800 FOR [facility]. PT SOCIAL, NO INAPPROPRIATE BEHAVIORS.
[2017-01-22 07:42] VITALS: BP 147/99
--- NOTE | 2017-01-22 09:02 | SOCIAL WORKER PROG NOTE PSYCH ---
Social Work Progress Note Progress Note Martínez completed an hour long phone screening this morning with [facility]. They requested some additional documents be faxed such as updated med list and progress notes. Rec'd a message later from Nola at [facility] stating they would like to arrange transport for admission tomorrow. Called to speak with Nola [phone], she was not available. Spoke with Timothy Ann. They would like to have Martínez come between 11-1pm if possible. Shared this information with Martínez. He is happy about the news. Called [facility] to schedule transport, but due to insurance they said to call [facility]. Called [facility] and they were able to schedule a ride for him with a 10:30 pick up worker tomorrow. Ref# [id number]. Martínez Quiroz APRN, and I phone conferenced in his Mom Mariann Espinoza. Mariann expressed her concerns over Martínez's instability over the past year. She is hoping and advocating for him to go to [facility] and then another rehab for a longer stay after that. Martínez seems on board with that plan and said he will start working on it when he gets to [facility]. He informed his Mom he would be admitted tomorrow. Martínez talked about continuing to have his Mom involved going forward. He appreciates her support and feedback at this time.
--- NOTE | 2017-01-22 09:05 | CP SOUTH PROGRESS NOTE PSYCH ---
Psych (Inpt) Progress Note Progress Note Include the following elements, when applicable: Involvement in the active treatment of the patient with behavioral observations of the patient and the patient's response to the treatment. Review of the ongoing treatment process in the context of the treatment plan. Indication of how multi-disciplinary staff members are carrying out the treatment plan. Plans for future interventions and recommendations for revision of the treatment plan. Liaison with other physicians/providers. Progress Note: I discussed this patient's progress to date, current mental status, treatment process in the context of the treatment plan, and discharge planning with staff/ team in the daily morning inpatient team meeting. I also met with the patient myself in individual session. Current Medications Sig/Minerva Start time Last Medication Dose Route Stop Time Status Admin Acetaminophen 650 MG Q6P PRN 01/14 2000 AC PO Al Hydroxide/Mg 30 ML Q4-6 PRN PRN 01/14 2000 AC Hydroxide PO Benztropine Mesylate 1 MG Q6-PRN PRN 01/20 164 AC PO Benztropine Mesylate 1 MG Q6P PRN 01/13 2015 AC IM Clonazepam 0.5 MG 0800 01/23 0800 AC PO 01/25 1200 Clonazepam 0.5 MG 0800,1400 01/19 0800 AC 01/21 PO 01/22 2300 1323 Divalproex Sodium 2,000 MG AT BEDTIME 01/18 220 AC 01/21 PO 2130 Haloperidol 5 MG Q6-PRN PRN 01/20 1645 AC 01/21 PO 1737 Haloperidol 5 MG Q6P PRN 01/14 2000 AC IM Magnesium Hydroxide 30 ML AT BEDTIME PRN 01/14 2000 AC PO Multivitamins 1 TAB DAILY 01/13 2007 AC 01/21 PO 0843 Nicotine 4 MG Q2P PRN 01/14 2000 AC 01/22 PO 0634 Olanzapine 20 MG AT BEDTIME 01/13 2200 AC 01/21 PO 2130 Paroxetine HCl 20 MG DAILY 01/14 1000 AC 01/21 PO 0843 Trazodone HCl 150 MG AT BEDTIME 01/13 2200 AC 01/21 PO 2130 Vital Signs Date Time Temp Pulse Resp B/P B/P Pulse O2 O2 Flow FiO2 Mean Ox Delivery Rate 01/22 0742 96.8 80 147/99 01/21 1948 99.2 68 138/88 01/21 1641 92 134/86 01/21 1231 92 130/80 Laboratory Tests 01/22 0605 Toxicology Valproic Acid (50 - 120 ug/mL) 91.4 A: Chart, progress notes, labs, vital signs and medication list reviewed. BP mildly elevated this morning, otherwise vital signs within normal limits. VPA = 91.4. Met briefly w/ patient this morning who shared that phone screening w/ Verna Patel went ok. Amanda Peoples LCSW, and I informed him that he was accepted to program. Patient was pleased to hear this news. Stated that he never considered contacting [facility] before this given their frequent long waiting lists. I informed pt that given his planned discharge tomorrow, that I will adjust Klonopin taper so he will receive 0.5mg today and then 0.5mg tomorrow, then off. Patient in favor of this taper. Stated he is tolerating it well thus far. Patient denied passive and active suicidal ideation, plans and intent. Denied homicidal ideation, auditory and visual hallucinations. Described his mood as "calmer" since knowing he was accepted to [facility]. Rated anxiety a 4/10 (10 being the worst) and depression/sadness a 0/10. Reported sleep is good. Reported stable appetite and energy level. Thought process linear, goal-directed. No evidence of manic or psychotic symptoms. Denied AVH, PI. Insight and judgement fair to good. A phone conference was held at 3:30PM with the patient, his mother (Mariann), Amanda Peoples LCSW, and I. Patient's tx progress to date, medication regimen, level of safety and discharge planning were reviewed and discussed. Mariann expressed patient's longstanding psychiatric and substance abuse history and his frequent non-adherence to tx recommendations. She was pleased to hear that patient was accepting residential treatment and encouraged him to consider longer term tx following discharge from [facility]. Patient seemed motivated to follow this recommendation; stated he would like to pursue 3-6 month extended tx or sober living to strengthen his sobriety. Stated a major reason for him to remain sober is for his 4 children; he seemed driven to become involved in their lives. He shared that one barrier to staying at a sober house would be payment, however, he seemed willing to consider all options. Both the patient and Mariann were in favor of discharge plan to [facility] for residential tx. P: -Discharge to [facility] tomorrow. -Decrease Klonopin taper from 0.5mg BID to 0.5mg once today and tomorrow, then done. -cont. current medications. -discharge tomorrow morning to [facility].
--- NOTE | 2017-01-22 11:50 | NUR ---
PT IS OUT IN THE COMMUNITY ITNERACTING WITH STAFF AND PEERS. PT IS ATTENDING ALL GROUPS WHICH WAS HIS GOAL THIS MORNING. PT HAD A PHONE SCREENING WITH [facility] THIS MORNING WHICH PT REPROTS WHEN WELL. PT MOOD IS STABLE WITH A FULL RANGE, BRIGHT AFFECT. PT DENIES SI THOUGHTS.
[2017-01-22 12:20] VITALS: BP 137/77
[2017-01-22 15:54] VITALS: BP 145/77
--- NOTE | 2017-01-22 17:43 | NUR ---
PT IS CALM, COOPERATIVE WITH STAFF AND PEERS, AND COMPLIANT WITH UNIT RULES. OFTEN IN [place], PT IS INTERACTING WELL WITH OTHERS. MOOD IS STABLE, AFFECT APPEARS EUTHYMCI TO FULL RANGE, COMMUNICATION IS ORGANIZED AND APPEARS NORMAL IN ALL RESPECTS, AND APPETITE IS NORMAL. PT DENIES SI AT THIS TIME.
[2017-01-22 20:00] VITALS: BP 124/77
[2017-01-23 07:37] VITALS: BP 119/79
--- NOTE | 2017-01-23 08:00 | CP SOUTH PROGRESS NOTE PSYCH ---
Psych (Inpt) Progress Note Progress Note Include the following elements, when applicable: Involvement in the active treatment of the patient with behavioral observations of the patient and the patient's response to the treatment. Review of the ongoing treatment process in the context of the treatment plan. Indication of how multi-disciplinary staff members are carrying out the treatment plan. Plans for future interventions and recommendations for revision of the treatment plan. Liaison with other physicians/providers. Progress Note: I discussed this patient's progress to date, current mental status, treatment process in the context of the treatment plan, and discharge planning with staff/ team in the daily morning inpatient team meeting. I also met with the patient myself in individual session. Laboratory Tests 01/22 605 Toxicology Valproic Acid (50 - 120 ug/mL) 91.4 Current Medications Sig/Minerva Start time Last Medication Dose Route Stop Time Status Admin Acetaminophen 650 MG Q6P PRN 01/14 2000 AC PO Al Hydroxide/Mg 30 ML Q4-6 PRN PRN 01/14 2000 AC Hydroxide PO Benztropine Mesylate 1 MG Q6-PRN PRN 01/20 1645 AC 01/22 PO 1739 Benztropine Mesylate 1 MG Q6P PRN 01/13 2015 AC IM Clonazepam 0.5 MG 0800 01/23 0800 AC PO 01/23 0801 Clonazepam 0.5 MG 0800,1400 01/19 0800 DC 01/22 PO 01/22 2300 0925 Divalproex Sodium 2,000 MG AT BEDTIME 01/18 2200 AC 01/22 PO 212 Haloperidol 5 MG Q6-PRN PRN 01/20 164 AC 01/22 PO 173 Haloperidol 5 MG Q6P PRN 01/14 2000 AC IM Magnesium Hydroxide 30 ML AT BEDTIME PRN 01/14 2000 AC PO Multivitamins 1 TAB DAILY 01/13 2007 AC 01/22 PO 0925 Nicotine 4 MG Q2P PRN 01/14 2000 AC 01/23 PO 0631 Olanzapine 20 MG AT BEDTIME 01/13 220 AC 01/22 PO 212 Paroxetine HCl 20 MG DAILY 01/14 1000 AC 01/22 PO 0925 Trazodone HCl 150 MG AT BEDTIME 01/13 220 AC 01/22 PO 212 Vital Signs Date Time Temp Pulse Resp B/P B/P Pulse O2 O2 Flow FiO2 Mean Ox Delivery Rate 01/23 0737 97.0 85 119/79 01/23 2000 98.0 96 124/77 01/22 1554 95 145/77 01/22 1220 88 137/77 A: Chart, progress notes, labs, vital signs and medication list reviewed. No new lab results today. Vital signs within normal limits. No significant events overnight. Met with the patient at 08:05AM, today, on the date of discharge. Patient described feeling ready for discharge and to continue working toward recovery. Stated he was pleased with the support he received from his mother during yesterdays phone conference. Patient alert and oriented x 3. Eye contact appropriate. Speech normal in rate, tone and volume. Mood, Im in a good place. anxiety a 4-5/10 (10 being the worst). Rated depression a 0/10 (10 being the worst). Denied feeling hopeless, helpless, worthless and guilty. Stated his sleep and energy level are good. Stated his appetite is normal. Denied passive and active suicidal ideation, plans and intent. Denied homicidal ideation. Stated and also believed he will not harm himself or others. Gave protective factors of his 4 children and mother. Hopeful that recovery will allow him to be involved in the lives of his children in the near future. He denied auditory and visual hallucinations. Denied paranoid ideation. There was no evidence of paranoia or delusional thought content. Denied racing/ruminative thoughts. Thought process linear, goal-directed. He reported tolerating all medications well and denied untoward effects. He reported feeling safe and ready for discharge. P: -Klonopin discontinued; taper completed this morning. -discharge this morning to [facility]. Transportation set up via [facility]. -patient was advised to abstain from all substances, to attend daily to weekly AA/NA meetings and to obtain a sponsor for support in sobriety. -patient was advised that in the event of an emergency, to call [phone] to the nearest emergency department. Patient verbalized understanding of instruction.
--- NOTE | 2017-01-23 08:09 | DISCHARGE SUMMARY REPORT-PSYCH ---
Visit Information Visit Dates/Diagnosis' Admission Date: 01/13/17 Discharge Date: 01/23/17 Reason for Admission: Patient was admitted on 01/13/17 on a voluntary basis, referred by [facility] ER, status-post overdose on allegedly 30,000 mg of gabapentin in the context of cocaine and alcohol use. Psy Discharge Primary Diag: Bipolar disorder, MRE depressed Psy Discharge Secondary Diag: Cocaine use disorder, Alcohol use disorder, Hypertension by history, Restless leg syndrome. Hospital Course Significant Lab Findings: Lab Amylase < 30 U/L L 08/12/16 1510 BUN 22 mg/dL H 01/11/17 0105 Cholesterol 223 MG/DL H 11/19/16 0405 LDL Cholesterol, Calc 152 mg/dL H 11/19/16 0405 Total Bilirubin 1.6 mg/dL H 01/11/17 0105 Urine Cocaine Screen > 1000 NG/ML H 01/11/17 0050 Valproic Acid 49.8 ug/mL L 01/14/17 0625 Valproic Acid 77.5 ug/mL 01/17/17 0632 Valproic Acid 91.4 ug/mL 01/22/17 0605 01/11/17 EKG: Sinus rhythm with a rate of 99. Borderline T abnormailities, inferior leads. Minor changes since previous tracing. OR: 168. QRSD: 96. QT: 364. QTc: 468. P: 27. QRS: 16. T: -4. Bordrline EKG confirmed by supply officer Dr. Kong Mg. Course Complications: None. Consultations: The patient was seen for admission history and physical by power regulator Dr. Wesley Markham. Please see his note for additional information. Allergies: Coded Allergies: cyclobenzaprine (TREMORS 12/03/16) fluoxetine (Intermediate, ANXIETY 11/05/16) bupropion (Mild, Increase in afshan, reported on a previous admission 11/05/16) Hospital Course/TX Response: The patient was monitored on the unit for safety, mood, suicidal ideation and agitation. He participated in multimodal treatments on the unit. On admission to inpatient psychiatry, the patient had reported non-adherence to outpatient prescribed medications: Zyprexa 20mg QHS, Depakote ER 1,500mg QHS, Remeron 15mg QHS, Neurontin 600mg BID, Propranolol 10mg daily, Trazodone 150mg QHS, and Klonopin 1mg QHS. He had reported using Klonopin more frequently than prescribed ; was started on Klonopin 0.5mg four times a day, which was gradually tapered off to completion. Depakote ER was restarted and increased to 1,750mg QHS for mood stabilization/racing thoughts. Depakote ER was increased to 2,000mg QHS yielding a therapeutic VPA level of 91.4ug/ml. Zyprexa 20mg QHS was restarted for additional mood stabilization. Trazodone 150mg QHS was restarted for insomnia. Patient declined restarting Propranolol, Neurontin and Remeron, stating these agents had little effect in the past. Patient reported tolerating all medications well, including the Klonopin taper. He denied untoward medication effects. During the hospital course the patient's mood and affect improved. He maintained good behavioral and physical control and demonstrated no agitated episodes. He gave permission for his mother to be involved in his inpatient care. A phone conference was held with the patient, his mother (Mariann), Amanda Peoples LCSW, and Norman. The patient's treatment progress, medication regimen, level of safety and discharge plan were reviewed and discussed. Mariann shared about the patient's longstanding psychiatric and substance abuse history and his frequent non- adherence to treatment recommendations. She was pleased to hear that the patient was accepting residential treatment and encouraged him to consider longer term tx following discharge from [facility]. Patient seemed motivated to follow this recommendation; stated he would like to pursue 3-6 month extended treatment or sober living after rehab to strengthen his sobriety. He stated a major reason he would like to remain sober is for his 4 children; he seemed driven to become involved in their lives. He shared that one barrier to staying at a sober house would be payment, however, he seemed willing to consider all options. Both the patient and Mariann were in favor of discharge plan to [facility] for residential substance abuse treatment. On the date of dischargem 01/23/17, the patient described feeling ready for discharge and a desire to continue working toward recovery. Stated he was pleased with the support received from his mother during yesterdays phone conference. Patient alert and oriented x 3. Eye contact appropriate. Speech normal in rate, tone and volume. Mood, Im in a good place. Affect calm, full, appropriate, non-labile. He offered no complaints. Rated anxiety a 4-5/10 (10 being the worst). Rated depression a 0/10 (10 being the worst). Denied feeling hopeless, helpless, worthless and guilty. Stated his sleep and energy level are good. Stated his appetite is normal. Denied passive and active suicidal ideation , plans and intent. Denied homicidal ideation. Stated and also believed he will not harm himself or others. Gave protective factors of his 4 children and his mother. Hopeful that recovery will allow him to be involved in the lives of his children in the near future. He denied auditory and visual hallucinations. Denied paranoid ideation. There was no evidence of paranoia or delusional thought content. Denied racing/ruminative thoughts. Thought process linear, goal -directed. He reported tolerating all medications well and denied side effects. He reported feeling safe and ready for discharge. Discharge HBIPS - Tobacco Use Treatment Offered Post DC Medications Offered: Script Given-See Med List Post DC Tobacco Treatment Plan: Refused Tobacco Tx Pgm - EtOH/Drug Use D/O Treatment Offered Post DC Medications Offered: Ref Med EtOH/Drug Use D/O Post DC EtOH/SubAbuse TX Plan: Other SubAbuse/Dual Pgm Program Appt Date: 01/23/17 Metabolic Screening - Screen if on a Neuroleptic Medication - Metabolic screening should include: - Blood Pressure, BMI, Glucose or Hgb A1c, & a - Lipid profile from within the past 365 days. Metabolic Screening () Not Applicable, patient not on a neuroleptic. OR ([X]) Patient on a neuroleptic(s) . Enter below results for Glucose or Hemoglobin A1C, and lipid panel if obtained during the last 365 days. BMI: 30.300 Blood Pressure: 119/79 Laboratory Results (If applicable): Lab Cholesterol 223 MG/DL H 11/19/16 0405 Cholesterol/HDL Ratio 4 % 11/19/16 0405 Glucose 96 mg/dL 01/11/17 0105 HDL Cholesterol 52 mg/dL 11/19/16 0405 LDL Cholesterol, Calc 152 mg/dL H 11/19/16 0405 Triglycerides 97 mg/dL 11/19/16 0405 Discharge Instructions General Discharge Information Discharge Medications: Discharge Medications- (Dose, route, freq, indication): START taking these NEW Home Medications: Nicotine Polacrilex Dose: ORAL, EVERY 2 HOURS (Nicorelief) 4 MG 4 Milligram NEEDED as needed for GUM nicotine cravings Divalproex Sodium Dose: ORAL, AT BEDTIME for (Divalproex Sodium 2,000 mood stabilization ER) 500 MG Milligram Take 4 tabs (2,000mg) po TAB.ER.24H QHS. Multivitamin (One Dose: ORAL, DAILY for vitamin Daily Multivitamin) 1 Tablet support 1 EACH TABLET Take 1 tab po daily. CHANGES to Home Medications: Paroxetine HCl (Paxil) Dose: ORAL, DAILY for 20 MG TABLET 20 Milligram depression/anxiety Take 1 tab po daily. (changed from: DAILY for anti-depressant [ No Instructions ]) Trazodone HCl (Trazodone Dose: ORAL, AT BEDTIME for HCl) 150 MG TABLET 150 Milligram insomnia Take 1 tab po QHS. (changed from: BEDTIME for sleep induction [ No Instructions ]) CONTINUE taking these Home Medications: Olanzapine (Olanzapine) Dose: ORAL, AT BEDTIME for 10 MG TABLET 20 Milligram clear thoughts/stabilize mood Take 2 tabs po QHS. STOP taking these DISCONTINUED Home Medications: Clonazepam (Klonopin) 1 MG Dose: ORAL, 0800,1400,2000 for for TABLET 1 Milligram panic anxiety Reason Stopped: Per Doctor Decision Divalproex Sodium (Divalproex Dose: ORAL, 2000 for mood stabilization Sodium) 500 MG TABLET. 1,500 Milligram Reason Stopped: Changed Dose Gabapentin (Gabapentin) 300 MG Dose: ORAL, 0800,1500,2200 for CAPSULE 600 Milligram discomfort/shakiness/anxiety Reason Stopped: Pt Decision, not taking No prescriptions were provided as the patient was transfered directly from [facility] to [facility], where medications will be available. Patient's W-10, with medication reconciliation was faxed to [facility] yesterday, following patient's discharge. Multiple Neuroleptics: ([X]) Not Applicable OR Document below three failed attempts at monotherapy, or a plan to taper to monotherapy, or augmentation of Clozapine. () Patient's Diet: Regular. Patient's Activity: No restrictions. DC Disposition: Patient transported directly from [facility] to [facility] for residential rehab. Recommendations: The patient was advised to please take his medications as prescribed. He was advised to engage in residential treatment at [facility], attend recommended 12-step/ recovery meetings and obtain a sponsor for support in sobriety. He was advised that in the event of an emergency, to call 911/go to the nearest emergency department. The patient verbalized understanding of all instructions. Referred To: Post Discharge Referrals Provider Referral Service Date: 01/23/17 Referred To: [[facility]] Notes: [address] [address] (t)[phone] Admission 01/23/17 Copies To: [facility]
[2017-01-23] MEDS ORDERED: NICORELIEF4 MG PO (08:26)
[2017-01-23] MEDS ORDERED: ONE DAILY MULT1 EAC2 PO (08:26)
[2017-01-23] MEDS ORDERED: TRAZODONE HCL150 M1 PO (08:26)
[2017-01-23] MEDS ORDERED: DIVALPROEX SOD500 M3 PO (08:26)
[2017-01-23] MEDS ORDERED: PAXIL20 M1 PO (08:26)
[2017-01-23] MEDS ORDERED: OLANZAPINE10 M1 PO (08:26)
--- NOTE | 2017-01-23 08:56 | NUR ---
PT ALREADY MET WITH PROVIDER AND IS SCHEDULED FOR DISCHARGE AND PICK-UP BY [facility] AT 1030AM. MOOD IS STABLE WITH FULL RANGE AFFECT, REPORTS + MOTIVATION FOR SOBRIETY AND FUTURE ORIENTED, NO ISSUES OR COMPLAINTS REPORTED OR OBSERVED, SOCIAL AND APPROPRIATE WITH PEERS AND STAFF. INFORMATION PACKET RE: BIPOLAR, COCAINE USE AND SI GIVEN & PT RESOURCE GUIDE REVIEWED ALONG WITH W-10 AND PT VERBALIZED UNDERSTANDING AND MOTIVATED TO FOLLOW-UP DISCHARGE PLANNING. WHEN ASKED DIRECTLY DENIES SI/HI/HALLUCINATIONS AND NO S/SX NOTED OR REPORTED. PT REPORTS AN OVERALL IMPROVEMENT IN MOOD/BEHAVIOR/MENTAL STATUS/SLEEP AND APPETITE.
--- NOTE | 2017-01-23 10:29 | SOCIAL WORKER PROG NOTE PSYCH ---
Social Work Progress Note Progress Note Martínez reported having a good night. Slept well. Looking forward to going to [facility] today. Asked if he would like any phone numbers for rehab as looking into an aftercare plan from [facility]? He said he didn't think he would need that, due to them having computers he could look up the information on. He will plan to start the conversation with his counselor there. I told him this seemed like a good admission for him and I wished him well on his next step. [employer] pick remover is scheduled for 10:30. Confirmed ride today via [employer]. D/C information faxed to [facility].
== END 2017-01-23 10:38 | DRG 753 ==
LOC: ENTRNSPT 15:25 → CMPTRNSPT 16:15 → ENTRNSPT 16:17 → CMPTRNSPT 16:24 → CP SOUTH 16:40 → ENRESERV 23:59 → CP SOUTH 01-23 10:38
PROVIDERS: ADMIT Psychiatry & Neurology Addiction Medicine
DX: F31.9 Bipolar disorder, unspecified (principal); F14.90 Cocaine use, unspecified, uncomplicated; Z72.89 Other problems related to lifestyle; I10 Essential (primary) hypertension; G25.81 Restless legs syndrome
CPT/HCPCS: 36415; J0515; J1630

== ENCOUNTER 2017-07-20 00:13 | Inpatient (IN) | payer OTHER ==
[~2017-07-20] VITALS: Ht 188 cm; Wt 113.4 kg
[~2017-07-20 00:13] MED LIST changes: +DEPAKOTE125 M1 PO; +DIVALPROEX SOD500 M3 PO; +DOXYCYCLINE HY100 M2 PO; +KEFLEX500 M1 PO; +MAGIC MOUTH WASH PO; +MEDROL4 M2 PO; +MELATONIN + L-TH3 MG PO; +MELATONIN5 M7 PO; +MOBIC15 M1 PO; +NAPROSYN500 M1 PO; +NICORELIEF4 MG PO; +PAROXETINE HCL30 M1 PO; +TESSALON PERLE100 M1 PO; +ULTRAM50 M1 PO
--- NOTE | 2017-07-20 00:38 | ED PSYCHIATRIC COMPLAINT ---
See Addendum History of Present Illness General Chief Complaint: Psychiatric Related Complaint Stated Complaint: " FEELING SUICIDAL" Source: patient, old records Exam Limitations: no limitations Vital Signs & Intake/Output Vital Signs & Intake/Output Vital Signs Date Time Temp Pulse Resp B/P B/P Pulse O2 O2 Flow FiO2 Mean Ox Delivery Rate 07/20 0937 97.7 57 18 141/91 94 Room Air 07/20 0637 98.2 60 18 135/65 98 Room Air 07/20 0440 98.4 60 18 135/77 94 Room Air 07/20 0300 98.4 86 18 138/82 07/20 0255 98.8 86 18 138/82 94 Room Air 07/20 0100 99.3 112 20 141/89 07/20 0023 99.3 112 20 141/89 95 Room Air Allergies Coded Allergies: cyclobenzaprine (TREMORS 12/03/16) fluoxetine (Intermediate, ANXIETY 11/05/16) bupropion (Mild, Increase in afshan, reported on a previous admission 11/05/16) Reconcile Medications Divalproex Sodium (Depakote) 500 MG TABLET.DR 2 TAB PO BID mood stabilizer Divalproex Sodium (Depakote) 125 MG TABLET.DR 2 TAB PO AT BEDTIME mood stabilizer LORazepam (Ativan) 1 MG TAB 1 TAB PO SI alcohol use Please take 1 tab TID 07/02/17 1 tab BID 07/03/17 1 tab QD 07/04/17 Meloxicam (Mobic) 15 MG TABLET 1 TAB PO DAILY PRN PAIN Nicotine Polacrilex (Nicorelief) 4 MG GUM 4 MG PO Q2P PRN NICOTINE CRAVINGS Olanzapine 20 MG TABLET 1 TAB PO QPM bipolar symptoms Paroxetine HCl 30 MG TABLET 1 TAB PO DAILY depression/anxiety Trazodone HCl 150 MG TABLET 150 MG PO AT BEDTIME PRN insomnia Triage Note: PT TO ED FOR SUICIDAL IDEATION "I TIED A NOOSE TO THE CEILING FAN AND GOT UP ON A CHAIR" STATES "THOUGHT OF MY KIDS" SO HE GOT BACK DOWN AND CAME TO ED. DENIES HI. DENIES ETOH. ADMITS TO SMOKING CRACK 1 HR RN PSYCHIATRIC, SMOKED MARIJUANA 25 MINS RN PSYCHIATRIC. PT TACHY AT 112. DENIES PAIN Triage Nurses Notes Reviewed? yes HPI: Patient states that this evening he was feeling suicidal and he tightened around his COPD in his room. He then declined a wheelchair and put his head into the news. Patient states that that he thought about his Cates and took his head L and climbed out of the chair came into the emergency room for evaluation. Patient got out of [place] just over a week ago after an admission for suicidal ideations. Patient states he has not had any alcohol since that admission. Patient does admit to smoking crack as well as marijuana. He denies any homicidal ideations. (Chauncey PRIETO,Niko Iniguez) Past History Travel History Traveled to [place] past 21 day No Medical History Any Pertinent Medical History? see below for history Neurological: delerium tremens, restless leg syndrome, ETOH withdrawal seizures EENT: NONE Cardiovascular: hypertension, hyperlipidemia Respiratory: NONE Gastrointestinal: NONE Hepatic: NONE Renal: NONE Musculoskeletal: Left knee meniscal tear Psychiatric: alcohol dependence, anxiety, bipolar disease, depression, insomnia, substance abuse, Suicidal ideation, overdose suicide attempt X 15 Endocrine: NONE Blood Disorders: NONE Cancer(s): NONE MIDDLE OR INTERMEDIATE SCHOOL PRINCIPAL/Reproductive: NONE History of MRSA: No History of VRE: No History of CDIFF: No Influenza Vaccine: 06/07/17 Surgical History Surgical History: hernia repair-umbilical Psychosocial History Who do you live with Patient/Self Services at Home None What is your primary language Chinese Tobacco Use: Current Daily Use Daily Tobacco Use Amount/Type: => 5 Cigarettes daily ETOH Use: denies use Illicit Drug Use: cocaine, marijuana Family History Family History, If Any: Relation not specified for: *No pertinent family history Hx Contributory? No (Chauncey PRIETO,Niko Iniguez) Review of Systems Review of Systems Constitutional: Reports: no symptoms. EENTM: Reports: no symptoms. Respiratory: Reports: no symptoms. Cardiovascular: Reports: no symptoms. GI: Reports: no symptoms. Genitourinary: Reports: no symptoms. Musculoskeletal: Reports: no symptoms. Skin: Reports: no symptoms. Neurological/Psychological: Reports: see HPI, depressed. Hematologic/Endocrine: Reports: no symptoms. Immunologic/Allergic: Reports: no symptoms. All Other Systems: Reviewed and Negative (Chauncey PRIETO,Niko Iniguez) Physical Exam Physical Exam General Appearance: well developed/nourished, mild distress Head: atraumatic Eyes: Bilateral: PERRL, EOMI. Ears, Nose, Throat: normal pharynx, normal ENT inspection, hearing grossly normal Neck: normal inspection, supple Respiratory: normal breath sounds Cardiovascular: regular rate/rhythm Gastrointestinal: normal bowel sounds, soft, non-tender Extremities: normal range of motion Neurological/Psychiatric: no motor/sensory deficits, awake, alert, calm, oriented x 3 Appearance/Memory/Insight: appropriate appearance, appropriate insight Behavoir/Eye Contact/Speech: cooperative, normal speech, good eye contact Thoughts/Hallucinations: normal thought pattern, no apparent hallucination Skin: intact, normal color, warm/dry SAD PERSONS Done? CRISIS CONSULT OBTAINED (Chauncey PRIETO,Niko Iniguez) Progress Differential Diagnosis: drug intoxication, drug overdose, drug withdrawal, electrolyte abnormality Plan of Care: Orders Procedure Date/time Status Regular Diet 07/20 B Active EKG 07/20 29 Active CIWA 07/20 0022 Complete DEPAKOTE LEVEL 07/20 19 Complete Continuous Observation Monitor 07/20 17 Active URINE DRUGS OF ABUSE 07/20 17 Complete ETHANOL 07/20 17 Complete COMPREHENSIVE METABOLIC PANEL 07/20 17 Complete CBC WITHOUT DIFFERENTIAL 07/20 17 Complete ED CRISIS PSYCH CONSULT 07/20 001 Active Current Medications Sig/[place]a Start time Last Medication Dose Stop Time Status Admin Olanzapine 20 MG QPM 07/20 2200 UNVr (Zyprexa) Divalproex Sodium 1,000 MG BID 07/20 1000 UNVr 07/20 (Depakote) 0907 Paroxetine HCl 30 MG 0800 07/20 0800 UNVr 07/20 (Paxil) 0907 Trazodone HCl 150 MG AT BEDTIME NEED.. 07/20 0130 AC (Desyrel) Laboratory Tests 07/20/17 0112: Urine Opiates Screen < 100.00, Methadone Screen < 40, Barbiturate Screen 92, Ur Phencyclidine Scrn < 6.00, Amphetamines Screen 121, U Benzodiazepines Scrn < 85, Urine Cocaine Screen > 1000 H, Urine Cannabis Screen 77.20 H 07/20/17 0040: Valproic Acid 24.1 L 07/20/17 0040: Anion Gap 12, Estimated GFR > 60, BUN/Creatinine Ratio 16.4, Glucose 105 H, Calcium 9.8, Total Bilirubin 0.8, AST 20, ALT 52, Alkaline Phosphatase 51, Total Protein 7.2, Albumin 4.4, Globulin 2.8, Albumin/Globulin Ratio 1.6, CBC w Diff NO MAN DIFF REQ, RBC 5.01, MCV 92.2, MCH 31.7 H, RDW 12.7, MPV 7.1 L, Gran % 61.9, Lymphocytes % 28.1, Monocytes % 9.1, Eosinophils % 0.7, Basophils % 0.2, Absolute Granulocytes 3.3, Absolute Lymphocytes 1.5, Absolute Monocytes 0.5, Absolute Eosinophils 0, Absolute Basophils 0, PUBS MCHC 34.4, Serum Alcohol < 10.0 Initial ED EKG: NSR, no ST T wave changes Prior EKG: unchanged Hand-Off Endorsed To: Dave Harkins DO Endorsed Time: 0700 Pending: consult (CRISIS) (Chauncey PRIETO,Niko Iniguez) Departure Departure Disposition: STILL A PATIENT Condition: Stable Clinical Impression Primary Impression: Suicidal ideations Referrals: Mary PRIETO,Niko Mckeon (PCP/Family) Departure Forms: Customer Survey General Discharge Information (Chauncey PRIETO,Niko Iniguez) Departure Comments 07/20/17 1:21 PM The patient was signed out to me by Dr. Grossman at 7 AM. He is pending evaluation and disposition by crisis. (Dave Harkins DO)
[2017-07-20 01:00] VITALS: BP 141/89
[2017-07-20 01:10] LABS: ABSOLUTE BASOPHIL COUNT 0 /CUMM (0.0-0.2); ABSOLUTE EOSINOPHIL COUNT 0 /CUMM (0.0-0.7); ABSOLUTE GRANULOCYTE CT 3.3 /CUMM (1.4-6.5); ABSOLUTE LYMPH COUNT 1.5 /CUMM (1.2-3.4); ABSOLUTE MONOCYTE COUNT 0.5 /CUMM (0.10-0.60); BASOPHIL % 0.2 % (0.0-2.0); EOSINOPHIL % 0.7 % (0-5); HEMATOCRIT 46.2 % (42-52); MEAN CORPUSCULAR HGB 31.7 PG (27.0-31.0); MEAN CORPUSCULAR HGB CONC 34.4 G/DL (33.0-37.0); MEAN CORPUSCULAR VOLUME 92.2 FL (80.0-94.0); MEAN PLATELET VOLUME 7.1 FL (7.4-10.4); PLATELET COUNT 230 /CUMM (130-400); RBC DISTRIBUTION WIDTH 12.7 % (11.5-14.5); RED BLOOD CELL CT 5.01 /CUMM (4.70-6.10); WHITE BLOOD CELL COUNT 5.3 /CUMM (4.8-10.8)
[2017-07-20 01:11] LABS: GRANULOCYTE % 61.9 % (42.2-75.2)
[2017-07-20 03:00] VITALS: BP 138/82
--- NOTE | 2017-07-20 10:16 | ED PSYCH CRISIS CONSULTATION ---
See Addendum Crisis Consult Basic Assessment Date of Consult: 07/20/17 Responsible Person/Accompanied By: Patient arrived to ED himself Insurance Authorization: Insurance #1: Insurance name: LYNETTE CASANOVA Policy number: [id number] ED Provider: Patient's ED Provider: Chauncey PRIETO,Niko Iniguez Primary Care Physician: Patient's PCP: Niko Hernandez MD PCP's Current Psychiatrist: No current psychiatrist Chief Complaint: Suicidal ideation & cocaine abuse Patient's Quote: "Been building up - not being there for my family." Present Illness: Patient is a 36 year old male with a historical psychiatric diagnosis of bipolar disorder, depressed type and extended treatment history at [facility] for suicidal ideation. Patient also has history of cocaine / alcohol abuse. Today, patient presents with suicidal ideation and recent cocaine use. Patient reported that he tied a noose in his home as a plan to commit suicide but was able to prevent himself for carrying it out after thinking about his children. Patient asserts he has been quite depressed due to not being able to see his kids. Urine toxicology screening today is positive for cocaine and marijuana. Patient has 4 young children who live out of state. Patient resides alone in an apartment. Patient was most recently admitted to [facility]'s inpatient unit [facility] on 06/17/2017 and discharged on 06/24/2017. Patient has had 6 inpatient admissions at [facility] since 2014. In the past year, patient has been admitted 3x to [facility] and has been admitted at other hospital's such as [facility]. On discharge from inpatient on 06/24, patient was referred to [facility]' s dual diagnosis intensive outpatient program (IOP). Patient did attend an intake evaluation on 06/24 but did not follow up after. Patient was also referred to follow up with a residential substance use rehabilitation center - it is unclear why he did not follow up with this. Patient indicates he has been taking his prescribed medication. On discharge from inpatient, patient was prescribed the following: Depakote 500 MG /125 mood stabilizer Zyprexa 20 MG bipolar symptoms Paxil 30 MG depression/anxiety Trazodone 150 Milligram needed for insomnia Patient asserts he continues to experience suicidal ideation with intent and plan. Patient denies auditory or visual hallucinations. There is no indication of active psychosis. Patient has the support of family (mother primarily), AA support group, and an AA sponsor. Patient's Address: [address] [place] [address] Other Who Do You Live With? Patient/Self Family/Informants Interviewed: no family/collateral ID'd Allergies - Coded Allergies: cyclobenzaprine (TREMORS 12/03/16) fluoxetine (Intermediate, ANXIETY 11/05/16) bupropion (Mild, Increase in afshan, reported on a previous admission 11/05/16) Current Medications - Scheduled Medications Divalproex Sodium (Depakote) 500 MG TABLET.DR 2 TAB PO BID mood stabilizer #56 TAB Prescribed by Alverto Fleming MD on 06/24/17 Divalproex Sodium (Depakote) 125 MG TABLET.DR 2 TAB PO AT BEDTIME mood stabilizer #28 TAB Prescribed by Alverto Fleming MD on 06/24/17 LORazepam (Ativan) 1 MG TAB 1 TAB PO SI alcohol use #4 TAB Prescribed by Roxi Carbajal on 07/02/17 Olanzapine 20 MG TABLET 1 TAB PO QPM bipolar symptoms #14 TAB Prescribed by Alverto Fleming MD on 06/24/17 Paroxetine HCl 30 MG TABLET 1 TAB PO DAILY depression/anxiety #14 TAB Prescribed by Alverto Fleming MD on 06/24/17 Scheduled PRN Medications Meloxicam (Mobic) 15 MG TABLET 1 TAB PO DAILY PRN PAIN #10 TAB Prescribed by John Hall on 06/24/17 Nicotine Polacrilex (Nicorelief) 4 MG GUM 4 MG PO Q2P PRN NICOTINE CRAVINGS # 100 GUM Prescribed by Alverto Fleming MD on 06/24/17 Trazodone HCl 150 MG TABLET 150 MG PO AT BEDTIME PRN insomnia #14 TAB Prescribed by Alverto Fleming MD on 06/24/17 Laboratory Results: Laboratory Tests 07/20/17 0112: Urine Opiates Screen < 100.00, Methadone Screen < 40, Barbiturate Screen 92, Ur Phencyclidine Scrn < 6.00, Amphetamines Screen 121, U Benzodiazepines Scrn < 85, Urine Cocaine Screen > 1000 H, Urine Cannabis Screen 77.20 H 07/20/17 0040: Valproic Acid 24.1 L 07/20/17 0040: Anion Gap 12, Estimated GFR > 60, BUN/Creatinine Ratio 16.4, Glucose 105 H, Calcium 9.8, Total Bilirubin 0.8, AST 20, ALT 52, Alkaline Phosphatase 51, Total Protein 7.2, Albumin 4.4, Globulin 2.8, Albumin/Globulin Ratio 1.6, CBC w Diff NO MAN DIFF REQ, RBC 5.01, MCV 92.2, MCH 31.7 H, RDW 12.7, MPV 7.1 L, Gran % 61.9, Lymphocytes % 28.1, Monocytes % 9.1, Eosinophils % 0.7, Basophils % 0.2, Absolute Granulocytes 3.3, Absolute Lymphocytes 1.5, Absolute Monocytes 0.5, Absolute Eosinophils 0, Absolute Basophils 0, PUBS MCHC 34.4, Serum Alcohol < 10.0 Past History Past Medical History Any Pertinent Medical History? 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 Physical Limitations (Interventions): Chronic pattern of relapse Psychiatric Treatment History Psych Treatment Psychiatric Treatment Yes Inpatient Treatment Yes Outpatient Treatment Yes Location of Treatment [facility] Reason for Treatment Bipolar disorder, cocaine use disorder, suicidal ideation. Dates of Treatment 2014 to present Response to Treatment Patient has had chronic suicidality and substance use concerns. 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 Hypertension Benzodiazepine (clonazepam) dependence (temporarily prescribed until Paxil dosing is optimized) Substance Use/Abuse History Drug Use/Abuse 1 Substances Used/Abused Yes Substance Used/Abused Cocaine First Use Age 12 Last Used Yesterday How much used/taken Patient did not specify How often Daily use per patient For how long Past few weeks and chronic use in the past year Route of use Inhalation Drug Use/Abuse 2 Substances Used/Abused Yes Substance Used/Abused Marijuana First Use Age 12 Last Used Past week How much used/taken Patient did not specify How often Patient did not specify For how long Longstanding use of marijuana Route of use Inhalation Substance Abuse Treatment Substance Abuse Treatment Past Substance Abuse TX Yes Inpatient Treatment Yes Outpatient Treatment Yes Location of Treatment [facility] Reason for Treatment Alcohol use disorder Dates of Treatment Multiple episodes Response to Treatment Patient has been unable to sustain sobriety consistently since 2013. Comments: - Current Mental Status Mental Status Orientation: Person, Place, Situation Affect: Depressed, Flat, Sad Speech: Soft Neuro-vegetative: Anhedonia, Concentration Poor, Hypersomnia, Loss of Interest, Sleep Disturbance Appearance Appearance- Dress/Hygiene: Patient has long blonde hair with a short facial hair. No othe remarkable features. Well groomed. Patient was tired during evaluation. Behaviors Thought Process: WNL Thought Content: WNL Memory: WNL Insight: Poor SI/HI Risk Assessment Past Suicidal Ideation/Attempts Yes (Past attempt by overdose) Current Suicidal Ideation/Att Yes (W/ plan to hang himself ) Past Homicidal Ideation/Att: No Current Homicidal Ideation/Attempts No Degree of Intent: Plan, States Intent Danger To: Self Gravely Disabled: Lack of Insight, Poor Impulse Control, Poor Judgment Risk Factors: history of suicide atmpts, SA/MH hospitalized, substance abuse, isolate/no social support, lack of outcome concern, lives alone, male, limited support Lethality Ratin PTSD Checklist PTSD Done? patient declined ED Management Sitter: Yes Restraints: No (Patient is calm & cooperative) DSM5/PS Stressors/Medical Prob Diagnosis' (DSM 5, Stressors, Medical): F 31.9 : Bipolar spectrum disorder, unspecified F 14.20 : Cocaine use disorder Current GAF: 20 Comments: Active ongoing suicidal ideation. Patient reports recent near attempt by tying a rope and commiting suicide by hanging. Departure Disposition Psych Medical Clearance Date: 07/20/17 Medically Cleared at: 0905 Time Started: 904 Time Ended: 949 Date Disposition Established: 07/20/17 Time Disposition Established: 1100 Plan for Disposition - Modality: Bed Search Rationale for Disposition: Patient meets criteria for an inpatient psychiatric admission due to risk of harm to self based on continuing suicidal ideation with intent and plan. There are no beds available on [facility]'s psychiatric unit - a bed search is pending for transfer admission. Type of IP Admission: Voluntary Referrals Niko Hernandez MD (PCP/Family)
[2017-07-21 07:34] VITALS: BP 140/78
--- NOTE | 2017-07-21 14:33 | ED PSYCHIATRIST/APRN CONSULT ---
Psychiatrist/FACILITIES AND GROUNDS DIRECTOR ED Consult Assessment and Plan: tnt powder worker's note reviewed. Case discussed with soap worker. Patient reportedly was planning to hang himself. Patient seen at 11:49 a.m. Known to me from his prior treatment at . 36 yo WM. Resting in bed in ER. Covered with blanket. Calm, polite and cooperative. Minimal eye contact. Affect is calm and depressed. Reports he relapsed. Was off meds for 1 week because "I don't know." Presented with SI. Misses his kids. Depressed mood 04/06. Anxiety 03/06. Feels hopeless, helpless, worthless and guilty. Reports SI. Denies HI, AH, VH and PI. Ox3. Sleep: on and off. Appetite: okay. Energy is none. Tolerating medications well, without complaint. Lab Urine Cannabis Screen 77.20 NG/ML H 07/20/17 0112 Urine Cocaine Screen > 1000 NG/ML H 07/20/17 0112 Valproic Acid 24.1 ug/mL L 07/20/17 0040 IMPRESSION: Bipolar d/o, depressed. Cocaine and cannabis use d/o. Hold for bed search.
[2017-07-22 08:25] VITALS: BP 122/59
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
[2017-07-22 16:39] VITALS: BP 118/79
[2017-07-22 16:42] VITALS: BP 118/79
[2017-07-22 20:17] VITALS: BP 133/78
[2017-07-22 20:21] VITALS: BP 133/78
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
[2017-07-23 08:04] VITALS: BP 127/74
[2017-07-23 08:08] VITALS: BP 127/74
--- NOTE | 2017-07-23 12:19 | CPS PROVIDER INIT ASMT PSYCH ---
Psychiatric Admission Radiagraph Operator's Note Reviewed: Yes Patient Seen and Examined: Yes Identifying Information: 36 year old White male with a historical psychiatric diagnosis of bipolar disorder, depressed type and extended treatment history at [facility] for suicidal ideation. Patient also has history of cocaine / alcohol abuse. Chief Complaint: patient presents with suicidal ideation and recent cocaine use. Patient reported that he tied a noose in his home as a plan to commit suicide but was able to prevent himself for carrying it out after thinking about his children. Patient asserts he has been quite depressed due to not being able to see his kids. Urine toxicology screening today is positive for cocaine and marijuana. Reaction to Hospitalization: wanted to be admitted History of Present Illness Onset of Illness: Patient was most recently admitted to [facility]'s inpatient unit [facility] on 06/17/2017 and discharged on 06/24/2017. Patient has had 6 inpatient admissions at [facility] since 2014. In the past year, patient has been admitted 3x to [facility] and has been admitted at other hospital's such as [facility]. On discharge from inpatient on 06/24, patient was referred to [facility]' s dual diagnosis intensive outpatient program (IOP). Patient did attend an intake evaluation on 06/24 but did not follow up after. Patient was also referred to follow up with a residential substance use rehabilitation center - it is unclear why he did not follow up with this. Patient indicates he has been taking his prescribed medication. 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 Hypertension Benzodiazepine (clonazepam) dependence Past Precipitating Factors- if any: substance use - Include inpatient and outpatient treatment Treatment History: externsive see multiple previous [facility] admission notes and Crisis evaluations History of Suicide Attempts or Gestures Multiple previous suicide attempts (reportedly close to 15) Substance Abuse History: Alcohol use disorder Cocaine use disorder Benzodiazepine (clonazepam) Allergies: Coded Allergies: cyclobenzaprine (TREMORS 12/03/16) fluoxetine (Intermediate, ANXIETY 11/05/16) bupropion (Mild, Increase in afshan, reported on a previous admission 11/05/16) Home Med List: Depakote 500 MG /125 mood stabilizer Zyprexa 20 MG bipolar symptoms Paxil 30 MG depression/anxiety Trazodone 150 Milligram needed for insomnia - Include any medical condition(s) that may - impact the patient's recovery/remission Past Medical History: Hypertension Past History Medical History Neurological: delerium tremens, restless leg syndrome, ETOH withdrawal seizures EENT: NONE Cardiovascular: hypertension, hyperlipidemia Respiratory: NONE Gastrointestinal: NONE Hepatic: NONE Renal: NONE Musculoskeletal: Left knee meniscal tear Psychiatric: alcohol dependence, anxiety, bipolar disease, depression, insomnia, substance abuse, Suicidal ideation, overdose suicide attempt X 15 Endocrine: NONE Blood Disorders: NONE Cancer(s): NONE 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 History of MRSA: No History of VRE: No History of CDIFF: No Isolation History: Standard Pneumonia Vaccine Status: Unknown if ever received Influenza Vaccine: 06/07/17 Influenza Vaccine Status Given in past- Date Above Surgical History Surgical History: hernia Repair, knee surgery; L meniscal tear umbilical herniorraphy Psychiatric Family/Social Hx Family History Psychiatric Illness: Mother - Depression, anxiety, alcohol use d/o Father - Alcohol use d/o Substance Use: both parents- Alcohol use d/o Suicides: No family suicides Social History Living Situation: has his own place Significant Relationships (family/friends): , 4 children, limited contact Education: High School Vocation/Occupation: 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 - #1 Recognizing dangerous situations. - #2 Coping Skills. - #3 Basic information about quitting. Status of Tobacco Cessation Counseling: #1, #2 AND #3 Completed Cessation Med Status Nicotine Gum Ordered Alcohol Screening - ETOH screen POS if BAL >=80 or Audit-C>= M4/F3 Audit-C Score from Diag Assess: 9 Blood Alcohol Level: < 10 in ED Alcohol Use Screening Results: Pos per Audit C &/or BAL - If ETOH counseling indicated - the following topics are required. - #1 Express concern about the patient's - drinking at unhealthy levels, include informing - of national norms for moderate drinking: - men <= 14 drinks/week, max 4 drinks/occasion - women <= 7 drinks/week, max 3 drinks/occasion - #2 Providing feedback, including linking alcohol to - negative physical effects (liver injury, hypertension) - negative emotional effects (relationship problems and - depression) - negative occupational consequences (reduced work - performance) - #3 Advising the patient to abstain from alcohol or - to drink below national norms for moderate drinking - (as listed above). Status of ETOH Use Counseling: #1, #2 AND #3 Completed. Metabolic Screening - Screen if on a Neuroleptic Medication - Metabolic screening should include: - Blood Pressure, BMI, Glucose or Hgb A1c, & a - Lipid profile from within the past 365 days. Metabolic Screening ([X]) Patient on a neuroleptic(s) . Enter below results for Hemoglobin A1C, and lipid panel if obtained during the last 365 days. BMI: 32.100 Blood Pressure: 127/74 Laboratory Results From [facility] (If applicable): Lab AST 20 U/L 07/20/17 0040 Alkaline Phosphatase 51 U/L 07/20/17 0040 Amylase 64 U/L 06/29/17 1420 Calcium 9.8 mg/dL 07/20/17 0040 Cholesterol 203 MG/DL H 06/20/17 0636 Cholesterol/HDL Ratio 6 % H 06/20/17 0636 Estimated GFR > 60 ml/min 07/20/17 0040 Globulin 2.8 gm/dL 07/20/17 0040 Glucose 105 mg/dL H 07/20/17 0040 HDL Cholesterol 31 mg/dL L 06/20/17 0636 Hemoglobin A1c 5.0 % 06/20/17 0636 LDL Cholesterol, Calc 114 mg/dL 06/20/17 0636 Total Bilirubin 0.8 mg/dL 07/20/17 0040 Triglycerides 292 mg/dL H 06/20/17 0636 Exam and Plan Mental Status Examination Ambulation Status: Fully mobile Appearance: Tall White male, long blond hair Attitude towards examiner: disinterested/tired Psychomotor activity: reduced Behavior: disinterested Quality of speech: reduced, not slurred Affect: irritable Mood: depressed Suicidal Ideation: yes Homicidal Ideation: no Hallucinations: no Paranoid/Delusional Material: no Difficulties with thought organization: no Insight: poor Judgment: poor Orientation: oriented to time, place and person Cognition: poor attention and concentration Memory Function: no gross deficits Estimate of intellectual functioning: average Assets/Strengths Patient Identified Assets/Strengths: resourceful Impression/Plan Impression and Plan: Martínez is a 36-year-old White male who was admitted to [facility] yesterday because he presented to [facility]'s ED with thoughts of suicide He had cocaine (probably from crack) and cannabis in his urine Martínez was diagnosed with Unspecified Bipolar, Alcohol Use Disorder, Cocaine Use Disorder, Opioid Use Disorder, Personality Disorder, and Hypertension. - Include all active medical diagnosis that require tx DSM 5 Diagnosis(es): Unspecified Bipolar, Alcohol Use Disorder, Cocaine Use Disorder, Opioid Use Disorder, Personality Disorder, and Hypertension. - Initial Tx Plan for Active Psych & Medical Conditions Treatment Plan: Inpatient Observation: 15 minute checks for safety Nursing to evaluate mental state and safety every shift Social work assessment and discharge planning and outreach to residential rehabs [facility] Therapy Group [employer] Activity Therapy Daily Medication re-evaluation Does not need CIWA - Factors that would help patient function - in a less restrictive setting. Factors: Residential rehab placement
[2017-07-23 12:24] VITALS: BP 106/76
--- NOTE | 2017-07-23 14:06 | History & Physical ---
General Information and HPI History of Present Illness: This young male with a long-standing history of psychiatric disorders and multiple psychiatric admissions in the past is admitted again to the hospital because of increased depression as well as bipolar disorder and polysubstance drug abuse . He also had some suicidal ideation and was feeling worse because he could not see his children and some other reasons that increases depression recently. Denies any specific physical or medical problems recently. His past history is essentially negative from medical problems but he has had multiple psychiatric admissions in the past. His family history is only positive for some depression in the mother he has 4 siblings who are in good health and both parents are alive living in the state and otherwise in good health. The patient himself has 4 children and has been once and the 2 children live in [place] with the mother that he was not to , other children live in this area from a different woman that he was to. He admits to using cocaine as well as marijuana recently and claims that he took his medication for a little bit after the discharge from the last hospitalization and the last couple weeks he has been using more drugs and therefore not taking his medications. Allergies/Medications Allergies: Coded Allergies: cyclobenzaprine (TREMORS 12/03/16) fluoxetine (Intermediate, ANXIETY 11/05/16) bupropion (Mild, Increase in afshan, reported on a previous admission 11/05/16) Home Med list Divalproex Sodium (Depakote) 500 MG TABLET.DR 2 TAB PO BID mood stabilizer Divalproex Sodium (Depakote) 125 MG TABLET.DR 2 TAB PO AT BEDTIME mood stabilizer LORazepam (Ativan) 1 MG TAB 1 TAB PO SI alcohol use Please take 1 tab TID 07/02/17 1 tab BID 07/03/17 1 tab QD 07/04/17 Meloxicam (Mobic) 15 MG TABLET 1 TAB PO DAILY PRN PAIN Nicotine Polacrilex (Nicorelief) 4 MG GUM 4 MG PO Q2P PRN NICOTINE CRAVINGS Olanzapine 20 MG TABLET 1 TAB PO QPM bipolar symptoms Paroxetine HCl 30 MG TABLET 1 TAB PO DAILY depression/anxiety Trazodone HCl 150 MG TABLET 150 MG PO AT BEDTIME PRN insomnia Past History Travel History Traveled to [place] past 21 day No Medical History Neurological: delerium tremens, restless leg syndrome, ETOH withdrawal seizures EENT: NONE Cardiovascular: hypertension, hyperlipidemia Respiratory: NONE Gastrointestinal: NONE Hepatic: NONE Renal: NONE Musculoskeletal: Left knee meniscal tear Psychiatric: alcohol dependence, anxiety, bipolar disease, depression, insomnia, substance abuse, Suicidal ideation, overdose suicide attempt X 15 Endocrine: NONE Blood Disorders: NONE Cancer(s): NONE STAFF INTERPRETER/Reproductive: NONE History of MRSA: No History of VRE: No History of CDIFF: No Isolation History: Standard Pneumonia Vaccine Status: Unknown if ever received Influenza Vaccine: 06/07/17 Influenza Vaccine Status Given in past- Date Above Surgical History Surgical History: hernia repair-umbilical Past Family/Social History Family History Relations & Conditions if any Relation not specified for: *No pertinent family history Psychosocial History Where do you live? Home Who Do You Live With? self Services at Home: None Primary Language: Georgian ETOH Use: denies use Illicit Drug Use: cocaine, marijuana Functional Ability ADLs Independent: dressing, eating, toileting, bathing. Ambulation: independent IADLs Independent: shopping, housework, finances, food prep, telephone, transportation , medication admin. Review of Systems Review of Systems Constitutional: Denies: no symptoms, see HPI, fever, malaise. EENTM: Denies: no symptoms. Cardiovascular: Denies: no symptoms. Respiratory: Denies: no symptoms. GI: Denies: no symptoms. Genitourinary: Denies: no symptoms. Musculoskeletal: Reports: joint pain (has some pain in left foot .). Skin: Denies: no symptoms. Neurological/Psychological: Reports: see HPI, anxiety, depressed, emotional problems. Hematologic/Endocrine: Denies: no symptoms. Exam & Diagnostic Data Last 24 Hrs of Vital Signs/I&O Vital Signs Date Time Temp Pulse Resp B/P B/P Pulse O2 O2 Flow FiO2 Mean Ox Delivery Rate 07/23 1224 92 106/76 07/23 0808 96.6 76 127/74 07/23 0804 96.6 76 127/74 07/22 202 98.0 79 133/78 07/22 2017 98.0 79 133/78 07/22 1642 97.3 83 118/79 07/22 1639 97.3 83 118/79 07/22 1505 97.0 57 20 121/58 94 Room Air Intake & Output 07/23 1600 07/23 0800 07/23 0000 Intake Total Output Total Balance Patient 250 lb Weight Physical Exam General Appearance Alert, Oriented X3, Cooperative, No Acute Distress Skin No Rashes, has a small area of induration the bottom of left footand still has a foreign body like a piece of glass that he did not get removed from last admission and it irritates and off and on. Did not go to the podiatry office for removal. HEENT Atraumatic, PERRLA, EOMI, Mucous Membr. moist/pink Neck Supple, No JVD, No thryomegaly, +2 Carotid Pulse wo Bruit Lymphatic Cervical nl Cardiovascular Regular Rate, Normal S1, Normal S2, No Murmurs, Gallops, Rubs Lungs Clear to Auscultation, Normal Air Movement Abdomen Normal Bowel Sounds, Soft, No Tenderness, No Hepatospenomegaly, No Masses Neurological Exam Findings: Normal Gait, Normal Speech, Strength at 5/5 X4 Ext, Normal Tone, Cranial Nerves 3-12 NL, Reflexes 2+ Cranial Nerves II through XII: Within normal limits and intact Extremities No Clubbing, No Cyanosis, No Edema, small area of tenderness at the bottom of left foot due to foreign body still present since last admission. Assessment/Plan Assessment: This young male is admitted to the hospital for increasing depression and polysubstance drug abuse. From medical standpoint he's fairly stable without any acute medical problems. His cardiopulmonary status is stable but he still has a small foreign body most likely a glass piece in his left foot that he did not follow-up with podiatry after last discharge and did not get it removed from last admission.. His admission blood work including CBC hemoglobin and hematocrit renal functions electrolytes and liver functions are all essentially normal. His urine toxicology is positive for cocaine and cannabis consistent with a history of drug abuse. For now he does not require any special medical treatment and was advised to soak his foot in warm water couple of times a day and hopefully it will bring the foreign body to surface otherwise he will have to follow-up with podiatry again since he was seen by petroleum products sales representative and the last admission in the hospital. There is no need for any other x-rays or treatment at this time. As Ranked By This Provider Problem List: 1. Cocaine abuse 2. Suicide ideation 3. Anxiety 4. ETOH abuse 5. Depressed affect 6. Depression Miscellaneous Miscellaneous Documentation Attending Case Discussed With: Barry Lozano MD Primary Care Physician: Mary PRIETO,Niko Mckeon Patient sees these Specialists none Level of Patient Care: MARICARMEN Pathak Attending MD Review Statement Attending Statement Attending MD Statement: examined this patient, reviewed EMR data (avail), discussed with nursing Attending Assessment/Plan: This young male is admitted again to the hospital for increased depression and suicidal ideation as well as polysubstance drug abuse and previous history of alcohol abuse. Presently there is no acute medical problems and is fairly stable from medical standpoint and does not require any workup or treatment. He has a small foreign body like a glass piece in his left foot which has been there more than a month and he was advised to soak the foot in warm water again. He did not follow-up with podiatry as outpatient after discharge to have it removed and it only irritates him a little bit. For now there is no need for any other x-rays or treatment except warm soaks and he will be seen as needed.
[2017-07-23 15:44] VITALS: BP 109/71
--- NOTE | 2017-07-23 17:02 | SOCIAL WORKER PROG NOTE PSYCH ---
Social Work Progress Note Progress Note Martínez shared that he has been using crack cocaine daily for the past week. Denies any alcohol use in the last couple of weeks. He stopped going to over a week ago, due to current drug use. Could not tell me what got in the way of him going to [facility], post discharge from [facility] in May. He reports feeling depressed over his life. Feels hopeless, guilty, ashamed and can't really see how things will get better. Stated he wanted to just end his life and that's why he was going to hang himself. When asked what stopped him? He said "God." He said "I can't be trusted right now." "I need to not go back to my house." He said he is on the waiting list for [facility] but hasn't talked to them in a couple of weeks. He signed a release for me to help follow up. He reports that he has a sober friend staying with him right now that has been helpful and urged him to come in and get help. 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 He has a hard time imagining his life being any different.
[2017-07-23 19:49] VITALS: BP 124/93
[2017-07-24 07:40] VITALS: BP 132/74
--- NOTE | 2017-07-24 10:16 | CP SOUTH PROGRESS NOTE PSYCH ---
Psych (Inpt) Progress Note Progress Note Angel care was discussed in the multidisciplinary treatment team meeting Background: 36 year old White male with a historical psychiatric diagnosis of bipolar disorder, depressed type and extended treatment history at [facility] for suicidal ideation. Patient also has history of cocaine / alcohol abuse. Presented with suicidal ideation and recent cocaine use. Patient reported that he tied a noose in his home as a plan to commit suicide but was able to prevent himself for carrying it out after thinking about his children. Patient asserts he has been quite depressed due to not being able to see his kids. Urine toxicology screening today is positive for cocaine and marijuana. Patient was most recently admitted to [facility]'s inpatient unit [facility] on 2016 and discharged on 06/24/2017. Patient has had 6 inpatient admissions at [facility] since 2014. In the past year, patient has been admitted 3x to [facility] and has been admitted at other [facility]'s such as [facility]. On discharge from inpatient on 06/24, patient was referred to [facility]' s dual diagnosis intensive outpatient program (IOP). Patient did attend an intake evaluation on 06/24 but did not follow up after. Patient was also referred to follow up with a residential substance use rehabilitation center - it is unclear why he did not follow up with this. Patient indicates he has been taking his prescribed medication. Most Likely Diagnoses as of 07/24/2017: Bipolar spectrum disorder, unspecified Alcohol use disorder Cocaine use disorder Unspecified anxiety disorder Other specified Personality Disorder (mixed traits of: Narcissistic, antisocial and borderline Hypertension Sedative Hypnotic-Anxiolytic use disorder Nicotine Use disorder Left knee meniscal tear History of restless leg syndrome History of withdrawal seizures Dyslipidemia S/P Umbilical hernia Repair, S/P knee surgery for a left sided meniscal Mental Status Examination Fully mobile Tall White male, long blond hair, he was more engaged in interview today, normal psychomotor activity: No bizarre behaviors Normal speech, nrither pressured nor slurred, constricted affect Depressed mood, still reporting suicidal Ideation, denied Homicidal Ideation: No Hallucinations: No Paranoid/Delusional Material, no Difficulties with thought organization: Poor insight, poor judgment, oriented to time, place and person, poor attention and concentration no gross memory deficits average intellectual functioning Assessment: Martínez is a 36-year-old White male who was admitted to because he presented to [facility]'s ED with thoughts of suicide He had cocaine (probably from crack) and cannabis in his urine Treatment Plan Update: Continue inpatient Observation: 15 minute checks for safety Nursing staff to evaluate mental state and safety every shift Social work assessment and discharge planning and outreach to residential rehabs Milieu Therapy Group Therapy Activity Therapy Daily Medication re-evaluation by psychiatrist Reduce paroxetine to 20 mg daily (he reported that he was going to be switched from paxil to Prozac by the last psychiatrist he saw, that is Martínez's stated desire at this point) Start Prozac 20 mg daily.
--- NOTE | 2017-07-24 14:58 | SOCIAL WORKER PROG NOTE PSYCH ---
Social Work Progress Note Progress Note MAYO SÁNCHEZ [id number] 1980 MAYO SÁNCHEZ [id number] Pended Authorization # Client Authorization # Type of Request [id number] CONCURRENT Date of Admission/ Start of Services Requested From Submission Date 07/22/2017 07/24/2017 07/24/2017
[2017-07-24 15:48] VITALS: BP 128/75
--- NOTE | 2017-07-24 16:07 | SOCIAL WORKER PROG NOTE PSYCH ---
Social Work Progress Note Progress Note Called Samantha at [facility] to discuss where Martínez is on the waitlist. Left a message. Met with Martínez, who continues to express motivation is going to rehab. Expressed thoughts about visualizing hanging himself or jumping off his balcony if he were to return home. Talked about managing his thoughts and triggers. He talked alot about his desire to want to be in a relationship with women and how he knows that is not helpful. He feels validated, wanted, and needed. Enjoys the "high" or euphoria of a new relationship. Encouraged to maintain boundaries here on the unit. Talked about how he often manipulates people/ staff and himself into thinking he is okay to return home, when he isn't. Discussed importance of being honest. This is something he struggles with. Martínez connected with Samantha from [facility]. He is on the waitlist, but they are holding off on admissions due to a current bed bug problem. They won't be taking anyone until August. Martínez was open to referrals being faxed to [facility], [facility], and [facility]. These were faxed.
[2017-07-24 20:00] VITALS: BP 133/71
[2017-07-25 07:50] VITALS: BP 134/69
--- NOTE | 2017-07-25 10:10 | CP SOUTH PROGRESS NOTE PSYCH ---
Psych (Inpt) Progress Note Progress Note Angel progress and care were discussed in the multidisciplinary treatment team meeting which included psychiatrist, RN, [employer], Group and Activity therapists Background: Martínez is a 36-year-old White male with prior diagnoses of bipolar disorder and extensive prior treatment history at [facility]. Patient also has history of cocaine/alcohol abuse. Presented with suicidal ideation and recent cocaine use. Patient reported that he tied a noose in his home as a plan to commit suicide but was able to prevent himself for carrying it out after thinking about his children. Patient asserts he has been quite depressed due to not being able to see his kids. Urine toxicology positive for cocaine and marijuana. most recently admitted to [facility]'s inpatient unit [facility] on 06/17/2017 and discharged on 06/24/2017. Patient has had 6 inpatient admissions at [facility] since 2014. In the past year, patient has been admitted 3x to [facility] and has been admitted at other hospital's such as [facility]. On discharge from inpatient on 06/24, patient was referred to [facility]'s dual diagnosis intensive outpatient program (IOP). Patient did attend an intake evaluation on 06/24 but did not follow up after. Most Likely Diagnoses as of 07/24/2017: Bipolar spectrum disorder, unspecified Alcohol use disorder Cocaine use disorder Unspecified anxiety disorder Other specified Personality Disorder (mixed traits of: Narcissistic, antisocial and borderline Hypertension Sedative Hypnotic-Anxiolytic use disorder Nicotine Use disorder History of withdrawal seizures Dyslipidemia S/P Umbilical hernia Repair S/P knee surgery for a left sided meniscal tear Mental Status Examination: Martínez was alert and oriented. He was steady on his feet, he was not slurred in his speech and was not pressured. He showed normal psychomotor activity, no bizarre behaviors, constricted affect. He reported mild improvement in his depressed mood, denied suicidal ideation this morning, denied Homicidal Ideation , no Hallucinations, no Paranoid/Delusional Material, no difficulties with thought organization, poor insight, poor judgment, oriented to time, place and person, poor attention and concentration, no gross memory deficits, average intellectual functioning Assessment: Martínez is a 36-year-old White male who was admitted because of thoughts of suicide. He had cocaine/crack and cannabis in his urine Treatment Plan Update: Continue Inpatient Care /Observation Level: 15 minute checks for safety Nursing staff to evaluate Martínez's mental state and safety every shift Continue Social work assessment and discharge planning and outreach to residential rehabs Continue Milieu Therapy Continue Group Therapy Continue Activity Therapy Continue paroxetine 20 mg daily Continue Prozac 20 mg daily. Continue Other medications unchanged Continue Daily Medication evaluations by psychiatrist Treatment Plan Update: Continue inpatient Observation: 15 minute checks for safety Nursing staff to evaluate mental state and safety every shift Social work assessment and discharge planning and outreach to residential rehabs Milieu Therapy Group Therapy Activity Therapy Daily Medication re-evaluation by psychiatrist Reduce paroxetine to 20 mg daily (he reported that he was going to be switched from paxil to Prozac by the last psychiatrist he saw, that is Martínez's stated desire at this point) Start Prozac 20 mg daily.
--- NOTE | 2017-07-25 12:06 | SOCIAL WORKER PROG NOTE PSYCH ---
Social Work Progress Note Progress Note Called admissions at [facility] spoke to Patience. She stated she still hadn't rec'd the referral, despite me having a confirmation stating the fax went through. Confirmed fax# [phone] and refaxed. She will call to schedule a screening once in receipt of the fax. Martínez stated he was feeling ok today. Slept well. Went to a couple of groups and made some phone calls to [facility] and [facility]. Martínez told me he spoke with his [facility] worker Timothy Gill yesterday and that Ray discourgaed him from [facility]. Martínez asked about a referral to [facility] in the meantime while waiting for rehab. He has been to the [facility] program before, but couldn't remember timeframe. Filled out a referral for both [facility] and [facility] and faxed them over. Meanwhile Martínez did complete his screening with Patience from [facility]. Martínez stated he thinks he'll be accepted, but it is just a matter of waiting for a bed to open.
[2017-07-25 12:32] VITALS: BP 121/80
[2017-07-25 15:43] VITALS: BP 136/76
[2017-07-25 19:38] VITALS: BP 139/67
[2017-07-26 08:18] VITALS: BP 122/76
--- NOTE | 2017-07-26 11:09 | CP SOUTH PROGRESS NOTE PSYCH ---
Psych (Inpt) Progress Note Progress Note Include the following elements, when applicable: Involvement in the active treatment of the patient with behavioral observations of the patient and the patient's response to the treatment. Review of the ongoing treatment process in the context of the treatment plan. Indication of how multi-disciplinary staff members are carrying out the treatment plan. Plans for future interventions and recommendations for revision of the treatment plan. Liaison with other physicians/providers. Progress Note: Medication list reviewed. Case discussed with RN, who reports that the patient is doing fine. PPD was placed. No behavioral issues. Mood has been fine/ stable. Appropriate and calm. Denying SI. Patient seen at 10:54 a.m. Dressed in jacket and blue scrub pants. Feels alright. Has no complaints. Affect is calm and blunted. Mood is good. Sad 4/ 10. Anxiety 4/10. Feels hopeless a little bit and helpless, a little more than that. Denies feeling worthless. Feels guilty. Denies active SI. Has occasional passive SI but not at this moment, stating that he just woke up. Gives a safety promise for here. Denies HI, AH, VH and PI. Sleep: good. Appetite: okay. Energy: good. Tolerating medications well, without complaint. IMPRESSION: Slow progress. Continue present treatment plan.
[2017-07-26 12:04] VITALS: BP 127/68
[2017-07-26 16:02] VITALS: BP 133/78
[2017-07-27 08:09] VITALS: BP 128/65
[2017-07-27 12:01] VITALS: BP 139/88
--- NOTE | 2017-07-27 15:01 | CP SOUTH PROGRESS NOTE PSYCH ---
Psych (Inpt) Progress Note Progress Note Include the following elements, when applicable: Involvement in the active treatment of the patient with behavioral observations of the patient and the patient's response to the treatment. Review of the ongoing treatment process in the context of the treatment plan. Indication of how multi-disciplinary staff members are carrying out the treatment plan. Plans for future interventions and recommendations for revision of the treatment plan. Liaison with other physicians/providers. Progress Note: Case discussed with RN, who reports that the patient is doing fine. Slept well. Taking his medications. Patient seen at 12:09 pm. Feels alright. Has no complaints. Affect is calm and blunted to euthymic. Mood is good. Sad 2/10. Anxiety 0/10. Denies feeling hopeless, helpless or worthless. Feels a little bit guilty. Denies active and passive SI, HI, AH, VH and PI. Reports he slept alright but had a bunch of drug dreams. Appetite: fair. Energy: not a lot. Tolerating medications. Plans to speak with Dr. Schaefer on Friday about increasing Prozac and decreasing Paxil. IMPRESSION: Slow progress. Continue present treatment plan.
[2017-07-27 16:23] VITALS: BP 135/79
[2017-07-27 19:56] VITALS: BP 103/79
[2017-07-28 08:18] VITALS: BP 143/65
[2017-07-28 12:10] VITALS: BP 139/73
--- NOTE | 2017-07-28 19:17 | CP SOUTH PROGRESS NOTE PSYCH ---
Psych (Inpt) Progress Note Progress Note Include the following elements, when applicable: Involvement in the active treatment of the patient with behavioral observations of the patient and the patient's response to the treatment. Review of the ongoing treatment process in the context of the treatment plan. Indication of how multi-disciplinary staff members are carrying out the treatment plan. Plans for future interventions and recommendations for revision of the treatment plan. Liaison with other physicians/providers. Progress Note: The patient was seen 1: 1 and discussed with the unit staff. We reviewed the inpatient progress note as well as the initial evaluation for from the emergency room. The patient is in treatment for bipolar disorder, current episode depressed, with suicidal ideation and plan. He has a history of alcohol and cocaine use disorder and recently relapsed. The patient is well known to us from multiple inpatient and outpatient treatments. He has been chronically depressed, continuously using drugs and alcohol, he did have multiple, severe suicide attempts. He presents as a tall, overweight male, with long, light brown hair, fairly well groomed, pleasant and cooperative. The patient speaks with well articulated, goal directed, average rate, volume and tone of speech. He states: "This time I will do this for myself. I will not think about not talking to my children I will not think about anything else but me Marco A. I have to do this because I am not getting any younger and my children needs to see that there are other ways of living their lives. I have never done this for myself but now his time" The patient denies suicidal/homicidal ideation, auditory/visual hallucinations, side effects from the medications. He is looking forward to her bed opening [facility] for long-term inpatient rehabilitation. He is cognitively intact, with good memory, good attention and concentration, good insight and judgment, seems motivated for treatment. The patient is tolerating well the switch from Paxil to Prozac, is tolerating well his other medication. He is improving slowly. We will continue present management. He will be followed up daily by the unit psychiatrist.
[2017-07-28 19:51] VITALS: BP 140/71
[2017-07-29 07:36] VITALS: BP 114/90
--- NOTE | 2017-07-29 10:33 | SOCIAL WORKER PROG NOTE PSYCH ---
Social Work Progress Note Progress Note Called [facility] and completed a screening for Martínez. Camacho Mccarty (fast food assistant restaurant manager) informed me that she may admit Martínez today, pending her calls to rehabs to confirm placement. Spoke with Martínez, who was resting in bed around 10am. He was in agreement with the plan to go to the program today. Had him sign a release for [facility] so that we could set him up with [facility], while waiting for placement at a rehab. Martínez denies SI today. He did admit to having alot of thoughts to use and current drug dreams. He states he doesn't have "the means" to use. Referring to money right now. Encouraged him to keep talking to people for support. He said he was going to ask his friend Jc to bring him clothes and that Jc may be able to take him to [facility]. He reports Jc is a sober friend. Camacho from [facility] reported that she will take Martínez today, but [facility] feels he needs to go to more of a mental health program like [facility]. She will follow up with [facility] and [facility]. She stated she would like a contract signed by Martínez, stating he will return to his apartment in 2weeks if rehab can't take him. This was signed and faxed over. Martínez left around 1:30-2pm. Has an intake at [facility] in [place], but can do the walk in next Friday which would be faster.
--- NOTE | 2017-07-29 12:09 | SOCIAL WORKER PROG NOTE PSYCH ---
Social Work Progress Note Progress Note Martínez has an intake appointment with [facility] [address] in [place] on , at 1:15pm. He also has the option to walk in next Friday for an intake anytime between 9: 15 and 1:30pm.
[2017-07-29 12:10] VITALS: BP 147/92
[2017-07-29] MEDS ORDERED: PAROXETINE HCL10 M1 PO (12:15)
[2017-07-29] MEDS ORDERED: DEPAKOTE ER250 M1 PO (12:15)
[2017-07-29] MEDS ORDERED: FLUOXETINE HCL40 M1 PO (12:15)
[2017-07-29] MEDS ORDERED: MELATONIN5 M7 PO (12:15)
[2017-07-29] MEDS ORDERED: DIVALPROEX SOD500 M2 PO (12:15)
--- NOTE | 2017-07-29 14:28 | SOCIAL WORKER PROG NOTE PSYCH ---
Social Work Progress Note Faxed Referral(s) 1 Referred To: [facility] dual [facility] Transition of Care Documents sent: Health Summary Faxed to: [facility] Fax #: [phone] Faxed by: Amanda Peoples Date faxed: 07/29/17 Time Faxed: [phone] Faxed Referral(s) 2 Referred To: [facility] Transition of Care Documents sent: Health Summary Faxed to: Camacho Mccarty Fax #: [phone] Faxed by: Amanda Peoples Date faxed: 07/29/17 Time Faxed: [phone]
--- NOTE | 2017-07-29 20:14 | CP SOUTH PROGRESS NOTE PSYCH ---
Psych (Inpt) Progress Note Progress Note Angel progress and care were discussed in the multidisciplinary treatment team meeting which included psychiatrist, RN, SNELLER HAND, Group and Activity therapists Background: Martínez is a 36-year-old White male with prior diagnoses of bipolar disorder and extensive prior treatment history at [facility]. Patient also has history of cocaine/alcohol abuse. Presented with suicidal ideation and recent cocaine use. Patient reported that he tied a noose in his home as a plan to commit suicide but was able to prevent himself for carrying it out after thinking about his children. Patient asserts he has been quite depressed due to not being able to see his kids. Urine toxicology positive for cocaine and marijuana. most recently admitted to [facility]'s inpatient unit [facility] on 06/17/2017 and discharged on 06/24/2017. Patient has had 6 inpatient admissions at [facility] since 2014. In the past year, patient has been admitted 3x to [facility] and has been admitted at other hospital's such as [facility]. On discharge from inpatient on 06/24, patient was referred to [facility]'s dual diagnosis intensive outpatient program (IOP). Patient did attend an intake evaluation on 06/24 but did not follow up after. Most Likely Diagnoses as of 07/24/2017: Bipolar spectrum disorder, unspecified Alcohol use disorder Cocaine use disorder Unspecified anxiety disorder Other specified Personality Disorder (mixed traits of: Narcissistic, antisocial and borderline Hypertension Sedative Hypnotic-Anxiolytic use disorder Nicotine Use disorder History of withdrawal seizures Dyslipidemia S/P Umbilical hernia Repair S/P knee surgery for a left sided meniscal tear Mental Status Examination: Martínez was alert and oriented. He was alert and oriented to time, place, and person. He was steady on his feet, he was not slurred in his speech and was not pressured. He showed normal psychomotor activity, no bizarre behaviors, and showed brighter affect. He reported mild improvement in his mood/less depressed, Martínez denied suicidal ideation, denied Homicidal ideation, no hallucinations, no paranoia or delusions. no difficulties with thought organization, partial insight, chronically poor judgment, oriented to time, place and person, poor attention and concentration, no gross memory deficits, average intellectual functioning Assessment: Martínez is a 36-year-old White male who was admitted because of thoughts of suicide. He had cocaine/crack and cannabis in his urine Treatment Plan Update: Discharge to [facility] awaiting rehab bed Reduce paroxetine to 10 mg daily Increase Prozac to 40 mg daily. Continue Other medications unchanged (see discharge summary for details)
--- NOTE | 2017-07-31 08:21 | DISCHARGE SUMMARY REPORT-PSYCH ---
Visit Information Visit Dates/Diagnosis' Admission Date: 07/22/17 Discharge Date: 07/29/17 Reason for Admission: Patient is a 36-year-old single white male who was admitted to the inpatient psychiatric unit on July 22, 2017 for suicidal ideation in the context of recent cocaine use Psy Discharge Primary Diag: Mood Disorder Psy Discharge Secondary Diag: Polysubstance Dependence Hospital Course Significant Lab Findings: Urine toxicology showed cocaine and cannabis chemistry was normal except triglycerides were elevated at 229 on June 20 and cholesterol was mildly elevated at 203 on June 20 these labs were done in a previous admission for the monitoring of atypical antipsychotics Course Complications: There were no complications Consultations: Admission history and physical examination Attending Assessment/Plan (Dr. Dominik Cruz MD): This young male is admitted again to the hospital for increased depression and suicidal ideation as well as polysubstance drug abuse and previous history of alcohol abuse. Presently there is no acute medical problems and is fairly stable from medical standpoint and does not require any workup or treatment. He has a small foreign body like a glass piece in his left foot which has been there more than a month and he was advised to soak the foot in warm water again. He did not follow-up with podiatry as outpatient after discharge to have it removed and it only irritates him a little bit. For now there is no need for any other x-rays or treatment except warm soaks and he will be seen as needed. Allergies: Coded Allergies: cyclobenzaprine (TREMORS 12/03/16) bupropion (Mild, Increase in afshan, reported on a previous admission 11/05/16) Hospital Course/TX Response: The patient had a relatively short hospital stay compared to his previous admissions. The patient was admitted with working diagnosis of unspecified bipolar disorder, alcohol use disorder, cocaine use disorder, opioid use disorder, personality disorder, hypertension. I reviewed his most recent drinking quantity and frequency and it was determined that he did not need any alcohol detoxification at this point especially that he has been in and out of hospitals frequently lately. The patient's medication on July 24 was reevaluated in shown indicated his draw strong desire to be moved from Paxil to Prozac he reported that he was in the process of almost doing that in a previous hospital admission but he ended up being discharged on that never materialized. The transition was started on Aftab 28 by reducing the paroxetine to 20 mg and starting him on Prozac 20 mg The patient tolerated the cross titration very well The treatment plan continued without any changes on 25 July the same seen for the long s weekend by Dr. Alverto Fleming on the and 27 July He was seen on July [address] Tenorio. I evaluated the patient following the 3 day weekend Gustabo was alert and oriented to time place and person his speech was normal he showed normal psychomotor activity and he showed normal behavior on the unit he seemed brighter and his affect. He reported some improvement in his mood and reported that has been feeling less depressed and denied thoughts of suicide denied violent thoughts or thoughts of homicide. Marco A denied hallucinations and there were no delusions during interviews and his thoughts were organized. He has a chronically poor judgment and the chronic pattern of relapses. He seemed to think that he was ready for discharge and the consensus of the multidisciplinary treatment team was that he was ready for discharge Plan: The plan was to discharge home to [facility] in [place] while he is awaiting for residential rehab bed and there was another reduction in Paxil to 10 mg and an increase in the Prozac to 40 mg and other medications were continued as below please see in (please see the discharge medication list below Discharge HBIPS - Tobacco Use Treatment Offered Post DC Medications Offered: Refused Tob Medication Tx Post DC Tobacco Treatment Plan: Refused Tobacco Tx Pgm - EtOH/Drug Use D/O Treatment Offered Post DC Medications Offered: Med Not Indicated for D/O Post DC EtOH/SubAbuse TX Plan: Other SubAbuse/Dual Pgm Metabolic Screening - Screen if on a Neuroleptic Medication - Metabolic screening should include: - Blood Pressure, BMI, Glucose or Hgb A1c, & a - Lipid profile from within the past 365 days. Discharge Instructions General Discharge Information Multiple Neuroleptics: ([X) Not Applicable OR Document below three failed attempts at monotherapy, or a plan to taper to monotherapy, or augmentation of Clozapine. () Discharge Diet Regular Discharge Activity Normal DC Disposition: The patient was discharged to [facility] 0 care Referrals Ordered Referrals Provider Referral 07/29/17 For Groups: [[facility] [place]] [facility] [place] admission 07/29/[address] [place] [phone] Provider Referral 08/11/17 For Groups: [[facility]] [facility] intake appt. 08/11/17 1:15pm WALK InTuesdays 9:30-1:30pm [address] [place], [place] [phone] Prescriptions Stop taking the following medications: Divalproex Sodium (Depakote) 500 MG TABLET.DR ORAL TWICE DAILY Qty = 56 Divalproex Sodium (Depakote) 125 MG TABLET.DR ORAL AT BEDTIME Qty = 28 Paroxetine HCl (Paroxetine HCl) 30 MG TABLET ORAL DAILY Qty = 14 LORazepam (Ativan) 1 MG TAB ORAL See Instructions Qty = 4 Continue taking these medications: Nicotine Polacrilex (Nicorelief) 4 MG GUM 4 Milligram ORAL EVERY 2 HOURS NEEDED as needed for NICOTINE CRAVINGS Qty = 100 Comments: Last Taken:07/29/17 Time:1130 Trazodone HCl (Trazodone HCl) 150 MG TABLET 150 Milligram ORAL AT BEDTIME as needed for insomnia Qty = 14 Comments: Last Taken:07/28/17 Time:2100 Olanzapine (Olanzapine) 20 MG TABLET 1 Tablet ORAL Every night Qty = 14 Comments: Last Taken:07/28/17 Time:2100 Meloxicam (Mobic) 15 MG TABLET 1 Tablet ORAL DAILY as needed for PAIN Qty = 10 Comments: Last Taken: Time:NOT GIVEN IN HOSPITAL Start taking the following new medications: Divalproex Sodium (Divalproex Sodium) 500 MG TABLET.DR 2 Tablet ORAL TWICE DAILY Qty = 60 No Refills Comments: Last Taken:07/29/17 Time:0830 Divalproex Sodium (Depakote ER) 250 MG TAB.ER.24H 1 Tablet ORAL AT BEDTIME Qty = 15 No Refills Comments: Last Taken:07/28/17 Time:2100 Fluoxetine HCl (Fluoxetine HCl) 40 MG CAPSULE 1 Capsule ORAL DAILY Qty = 15 No Refills Comments: Last Taken:07/29/17 PT RECEIVED 20MG..TO START 40 MG AT HOME Time:0830 Paroxetine HCl (Paroxetine HCl) 10 MG TABLET 10 Milligram ORAL DAILY Qty = 10 No Refills Instructions: for 10 days then STOP Comments: Last Taken:TO START 10 MG DOSE AT HOME Time: Melatonin (Melatonin) 5 MG TABLET 5 Milligram ORAL AT BEDTIME Qty = 15 No Refills Comments: Last Taken:07/28/17 Time:2100 Copies To: [facility]
== END 2017-07-29 13:37 | DRG 753 ==
LOC: ERH 00:13 → ERHI 07-22 11:43 → CP SOUTH 07-22 11:43 → ENRESERV 07-22 13:30 → EDBEDREQ 07-22 15:21 → ERHI 07-22 15:34 → ENTRNSPT 07-22 15:56 → CP SOUTH 07-22 16:06 → ERHI 07-22 16:12 → CP SOUTH 07-22 16:18 → CMPTRNSPT 07-22 16:19 → CP SOUTH 07-23 10:57
PROVIDERS: Emergency Medicine
DX: F39 Unspecified mood [affective] disorder (principal)
CPT/HCPCS: 36415; 80307; 93005; 93010; G0463; G0480

== ENCOUNTER 2017-08-07 16:24 | Inpatient (IN) | payer OTHER ==
[~2017-08-07] VITALS: Ht 5.1 cm; Wt 113.4 kg
[~2017-08-07 16:24] MED LIST changes: +DEPAKOTE ER250 M1 PO; +FLUOXETINE HCL40 M1 PO; +PAROXETINE HCL10 M1 PO
--- NOTE | 2017-08-07 16:40 | ED PSYCHIATRIC COMPLAINT ---
History of Present Illness General Chief Complaint: ETOH/Drug Related Complaint Stated Complaint: PER PT OVERDOSED ON SEROQUEL Source: patient Exam Limitations: clinical condition Vital Signs & Intake/Output Vital Signs & Intake/Output Vital Signs Date Time Temp Pulse Resp B/P B/P Pulse O2 O2 Flow FiO2 Mean Ox Delivery Rate 08/08 0958 97.8 80 18 120/86 94 08/08 0609 97.8 86 18 120/88 96 Room Air 08/08 0336 98.5 83 18 110/70 97 Room Air 08/07 2337 98.6 90 18 124/83 98 Room Air 08/07 2106 86 16 107/68 99 Nasal 2.0L Cannula 08/07 1832 98.5 110 17 124/80 92 Nasal 4.0L Cannula 08/07 1706 98.9 08/07 1639 121 15 130/81 91 Room Air Room Air ED Intake and Output 08/08 0000 08/07 1200 Intake Total 0 Output Total Balance 0 Intake, Oral 0 Patient 250 lb Weight Weight Reported by Patient Measurement Method Allergies Coded Allergies: cyclobenzaprine (TREMORS 08/07/17) bupropion (Mild, Increase in afshan, reported on a previous admission 08/07/17) Reconcile Medications Divalproex Sodium 500 MG TABLET.DR 2 TAB PO BID mood stabilty Divalproex Sodium (Depakote ER) 250 MG TAB.ER.24H 1 TAB PO AT BEDTIME Mood stability Fluoxetine HCl 40 MG CAPSULE 1 CAP PO DAILY depression and anxiety Melatonin 5 MG TABLET 5 MG PO AT BEDTIME sleep aid Meloxicam (Mobic) 15 MG TABLET 1 TAB PO DAILY PRN PAIN Nicotine Polacrilex (Nicorelief) 4 MG GUM 4 MG PO Q2P PRN NICOTINE CRAVINGS Olanzapine 20 MG TABLET 1 TAB PO QPM bipolar symptoms Paroxetine HCl 10 MG TABLET 10 MG PO DAILY deprassion and anxiety for 10 days then STOP Trazodone HCl 150 MG TABLET 150 MG PO AT BEDTIME PRN insomnia Triage Nurses Notes Reviewed? yes Onset: Just prior to arrival Duration: hour(s): Timing: remote history Severity: severe HPI: Patient is a 36-year-old male with history of bipolar disorder presenting to the emergency department with chief complaint of overdosing on Seroquel. Patient presented to the hand fill of Seroquel, unsure of the quantity just prior to arrival. Patient also reporting that he did crack as well. Positive fatigue. Patient denying any pain. Denies any nausea or vomiting. Unable to provide much of the history secondary to clinical condition. Upon further evaluation patient reports that he is feeling very depressed and wanted to end his life so he thought he would do this by taking several pills. (Rere Ortiz) Past History Travel History Traveled to [place] past 21 day No Medical History Any Pertinent Medical History? 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 No (Rere Ortiz) Review of Systems Review of Systems Constitutional: Reports: malaise, weakness. Comments Review of systems: See HPI, All other systems negative. Constitutional, no chills fever or weight loss HEENT: No visual changes no sore throat no congestion Cardiovascular: No chest pain ,palpitation Skin, no jaundice no rashes Respiratory: No dyspnea cough sputum or hemoptysis GI: No nausea no vomiting : No dysuria Muscle skeletal: no back pain, no neck pain, Neurologic: No numbness Psych: Positive stress and depression Heme/endocrine: No bruising no bleeding no polyuria or polydipsia Immunology: No splenectomy or history of AIDS (Rere Ortiz) Physical Exam Physical Exam General Appearance: no apparent distress, lethargic Neurological/Psychiatric: aLERT AND ORIENTED TO PERSON AND PLACE Comments: Well-developed well-nourished person in no acute distress HEENT: extraocular motion intact, no nystagmus. Pupils equally round and reactive to light and accommodation. Pupils approximately 4 mm bilaterally. Nose is atraumatic. External auditory canal and Tympanic membranes clear. Pharynx normal. No swelling or edema. Dry oral mucosa. Neck: Supple, no lymphadenopathy, Back: Nontender Cardiovascular: Tachycardic rate and rhythms no murmurs rubs or gallops, normal JVP Respiratory: Chest nontender. No respiratory distress.breath sounds clear to auscultation bilaterally Abdomen: Soft, nontender nondistended, no appreciable organomegaly. Normal bowel sounds. No ascites, no rebound or guarding. Extremity: No edema, no calf tenderness to palpation, normal and equal pulses. Neuro: Alert oriented x3, motor sensory normal, cranial nerves II through XII grossly intact. Skin: No appreciable rash on exposed skin, appear slightly diaphoretic. Psych: Lethargic, intoxicated appearing, poor memory. SAD PERSONS SAD PERSONS Response Value Male Sex? yes 1 Depression/Hopelessness? yes 2 Previous Attempts/Psych Care yes 1 Excessive Ethanol/Drug Use? yes 1 Rational Thinking Loss? yes 2 Organized/Serious Attempt yes 2 Social Support? has no support 1 Stated Future Intent? yes 2 Total 12 SAD PERSONS Done? yes (Travis HENLEY,Rere) Progress Differential Diagnosis: POLYSUBSTANCE OVERDOSE, SUICIDE ATTEMPTS, ELECTROLYTE ABNORMALITY, SEROTONIN SYNDROME, CARDIAC ARRHYTHMIA, DEHYDRATION Plan of Care: Orders Procedure Date/time Status Heart Healthy Diet 08/08 B Active Admit to inpatient 08/08 1127 Active Discharge Patient 08/08 1126 Active Continuous Observation Monitor 08/08 0700 Active Continuous Observation Monitor 08/08 0300 Active Continuous Observation Monitor 08/07 2300 Active EKG 08/[address] in observation 08/07 1939 Active Patient Data 08/07 1939 Active Vital Signs 08/07 1939 Active Code Status 08/07 1939 Active Continuous Observation Monitor 08/07 1900 Active Straight Cath 08/07 1805 Active Add-on Test (ER Only) 08/07 1708 Active Add-on Test (ER Only) 08/07 1706 Active MAGNESIUM 08/07 1645 Complete DEPAKOTE LEVEL 08/07 1645 Complete CREATINE PHOSPHOKINASE 08/07 1645 Complete Continuous Observation Monitor 08/07 1644 Active ED CRISIS PSYCH CONSULT 08/07 1644 Active Intake & Output 08/07 1639 Active URINE DRUG SCREEN FOR ER ONLY 08/07 1639 Complete ACETOMINOPHEN 08/07 1639 Complete TROPONIN LEVEL 08/07 1639 Complete SALICYLATE 08/07 1639 Complete ETHANOL 08/07 1639 Complete COMPREHENSIVE METABOLIC PANEL 08/07 1639 Complete CBC WITHOUT DIFFERENTIAL 08/07 1639 Complete EKG 08/07 1639 Active Laboratory Tests 08/07/17 1700: Urine Opiates Screen < 100.00, Methadone Screen 50, Barbiturate Screen 79, Ur Phencyclidine Scrn < 6.00, Amphetamines Screen 113, U Benzodiazepines Scrn < 85, Urine Cocaine Screen > 1000 H, Urine Cannabis Screen > 80.00 H 08/07/17 1645: Anion Gap 14, Estimated GFR > 60, BUN/Creatinine Ratio 15.4, Glucose 111 H, Calcium 9.5, Magnesium 2.0, Total Bilirubin 1.0, AST 19, ALT 49, Alkaline Phosphatase 54, Creatine Kinase 100, Troponin I < 0.01, Total Protein 7.4, Albumin 4.7, Globulin 2.7, Albumin/Globulin Ratio 1.7, CBC w Diff NO MAN DIFF REQ, RBC 5.30, MCV 91.2, MCH 31.8 H, RDW 12.4, MPV 6.8 L, Gran % 54.9, Lymphocytes % 32.5, Monocytes % 11.0 H, Eosinophils % 1.1, Basophils % 0.5, Absolute Granulocytes 2.0, Absolute Lymphocytes 1.2, Absolute Monocytes 0.4, Absolute Eosinophils 0, Absolute Basophils 0, PUBS MCHC 34.9, Salicylates < 1.0, Acetaminophen < 10.0 L, Valproic Acid 11.1 L, Serum Alcohol < 10.0 Diagnostic Imaging: Viewed by Me: Radiology Read. Discussed w/RAD: Radiology Read. Initial ED EKG: SINUS TACHYCARDIA Comments: 08/07/2017 7:01:44 PMSpoke with poison control, recommending repeat EKG, repeat CMP and 6 hours, IV hydration, benzos when necessary. No signs of serotonin syndrome at this time. Patient will be admitted to ED observation for suicide attempt and polysubstance abuse. (Travis HENLEY,Rere) Repeat EKG: unchanged Rhythm Strip: normal sinus rhythm Hand-Off Endorsed To: Dave Nicholson MD Endorsed Time: 0700 Pending: consult (Katie PRIETO,Freddie) Comments: 08/08/2017 7:47:38 AM patient signed out to me by Dr. 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 Crisis evaluation pending for suicide attempt by overdose. (Lyn PRIETO,Dave Marte) Departure Departure Time of Disposition: 1899 Disposition: STILL A PATIENT Condition: Stable Referrals: Niko Hernandez MD (PCP/Family) Departure Forms: Customer Survey General Discharge Information (Rere Ortiz) Observation Note Spoke With: Dave Rosario DO Physician Advisor Notified: DAVE ROSARIO DO Place Patient In: ED Observation Rationale for Observation: My rational for observation is as follows [patient needs telemetry monitoring, crisis consultation, serial neurological exams]. (Dave Rosario DO) Departure Clinical Impression Primary Impression: Bipolar 1 disorder Secondary Impressions: Polysubstance overdose Qualifiers: Encounter type: initial encounter Injury intent: intentional self- harm Qualified Code: T50.902A - Poisoning by unspecified drugs, medicaments and biological substances, intentional self-harm, initial encounter Suicide attempt Psych Admission Note Psychiatric Admission: I have seen and evaluated MAYO SÁNCHEZ. I have also reviewed all the pertinent lab results and diagnostic results. MAYO SÁNCHEZ will be admitted to our inpatient Psychiatric unit for treatment and care. (Lyn PRIETO,Dave Marte) ED Attending Observation Initial Observation Note: I have seen and personally examined MAYO SÁNCHEZ on 08/07/17 at 1941. I agree with the current emergency department documentation. The disposition (admission or discharge) is uncertain at this time, he needs a period of observation for the following reason(s): [The patient needs cardiac monitoring for the [place] overdose, neurological exams every several hours, crisis consultation] The ED Nurse caring for this patient has been personally informed as to what the patient is being observed for. The patient was signed out to Dr. Wilson at 7 PM (Dave Rosario DO) Observation Re-Evaluation: I have reevaluated MAYO SÁNCHEZ on 08/07/17 at 2245. The physical findings that support the continued need to observe this patient include no physical issues. (Katie PRIETO,Freddie)
[2017-08-07 16:58] LABS: ABSOLUTE BASOPHIL COUNT 0 /CUMM (0.0-0.2); ABSOLUTE EOSINOPHIL COUNT 0 /CUMM (0.0-0.7); ABSOLUTE LYMPH COUNT 1.2 /CUMM (1.2-3.4); ABSOLUTE MONOCYTE COUNT 0.4 /CUMM (0.10-0.60); BASOPHIL % 0.5 % (0.0-2.0); EOSINOPHIL % 1.1 % (0-5); GRANULOCYTE % 54.9 % (42.2-75.2); HEMATOCRIT 48.3 % (42-52); MEAN CORPUSCULAR HGB 31.8 PG (27.0-31.0); MEAN CORPUSCULAR HGB CONC 34.9 G/DL (33.0-37.0); MEAN CORPUSCULAR VOLUME 91.2 FL (80.0-94.0); MEAN PLATELET VOLUME 6.8 FL (7.4-10.4); PLATELET COUNT 202 /CUMM (130-400); RBC DISTRIBUTION WIDTH 12.4 % (11.5-14.5); WHITE BLOOD CELL COUNT 3.7 /CUMM (4.8-10.8)
--- NOTE | 2017-08-07 17:42 | RADIOLOGY REPORT ---
EXAMINATION: XR PORTABLE CHEST CLINICAL INFORMATION: Overdose. Rule out aspiration. COMPARISON: 08/30/2015. TECHNIQUE: Portable frontal view of the chest was obtained. FINDINGS: No significant abnormality is noted involving the heart, lungs, mediastinum, bony thorax or soft tissues. Mild peribronchial thickening is present. IMPRESSION: Unremarkable examination.
--- NOTE | 2017-08-08 08:38 | ED PSYCH CRISIS CONSULTATION ---
Crisis Consult Basic Assessment Date of Consult: 08/08/17 Responsible Person/Accompanied By: self Insurance Authorization: Insurance #1: Insurance name: LYNETTE CASANOVA Phone number: Policy number: [id number] Group number: Authorization number: ED Provider: Patient's ED Provider: Rere Ortiz Primary Care Physician: Patient's PCP: Niko Hernandez MD PCP's Current Psychiatrist: most recent- Dr. Lozano- [facility] Chief Complaint: ETOH/Drug Related Complaint Patient's Quote: "tried to kill myself" Present Illness: Patient is a 36 year old male with historical psychiatric diagnosis of bipolar disorder depressive type and multiple hospitalizations for suicide attempts/ suicidal ideation. Patient also has a history of cocaine and alcohol abuse. Today, 08/08/17, the patient presents to the ED post suicide attempt attempt by overdose of Seroquel that he stole from his friend. Patient's urine toxicology report was positive for cocaine and cannabis. Pt reports he was clean for 7 days post discharge from [facility] (07/29/17) and then replaced. He reports since he has relapsed he has been using $100 a day of cocaine. He last used cocaine and cannabis yesterday, 08/07/17. Patient reports he stopped taking his medication when relapsed. His Valporic Acid level is 11.1 in the ED. He has had multiple [facility] admissions with the most recent being in June with a discharge on 07/29/17 to a placement at [facility] in [place]. He was set up with an IOP appointment at [facility] for 08/11/17. Patient was discharged from [facility] with the following medication: Trazodone 150 mg at bedtime prn insomnia, Olanzapine 20 mg at night, Fluoxetine 40mg daily, Paroxetine 10 mg daily, Melatonin 5 mg at bedtime, Depakote 500 mg (2 tabs at 2x/day) and 250 mg ER (at bedtime). Presently, patient continue to endorse SI with multiple plans including additional overdoses. Patient was observed lying in bed, flat affect, poor eye contact and spoke in a soft tone. insurance processor consulted with Dr. Tenorio. Patient will be admitted voluntarily to [facility] due to SI and recent SA by tawanna. Patient's Address: [address] [place], [place] [id number] Other Who Do You Live With? Patient/Self Family/Informants Interviewed: left message for Director of [facility] Respite Allergies - Coded Allergies: cyclobenzaprine (TREMORS 08/07/17) bupropion (Mild, Increase in afshan, reported on a previous admission 08/07/17) Current Medications - Scheduled Medications Divalproex Sodium 500 MG TABLET.DR 2 TAB PO BID mood stabilty #60 TAB Prescribed by Barry Lozano MD on 07/29/17 Divalproex Sodium (Depakote ER) 250 MG TAB.ER.24H 1 TAB PO AT BEDTIME Mood stability #15 TAB Prescribed by Barry Lozano MD on 07/29/17 Fluoxetine HCl 40 MG CAPSULE 1 CAP PO DAILY depression and anxiety #15 CAP Prescribed by Barry Lozano MD on 07/29/17 Melatonin 5 MG TABLET 5 MG PO AT BEDTIME sleep aid #15 TAB Prescribed by Barry Lozano MD on 07/29/17 Olanzapine 20 MG TABLET 1 TAB PO QPM bipolar symptoms #14 TAB Prescribed by Alverto Fleming MD on 06/24/17 Paroxetine HCl 10 MG TABLET 10 MG PO DAILY deprassion and anxiety #10 TAB Prescribed by Barry Lozano MD on 07/29/17 Scheduled PRN Medications Meloxicam (Mobic) 15 MG TABLET 1 TAB PO DAILY PRN PAIN #10 TAB Prescribed by John Hall on 06/24/17 Nicotine Polacrilex (Nicorelief) 4 MG GUM 4 MG PO Q2P PRN NICOTINE CRAVINGS # 100 GUM Prescribed by Alverto Fleming MD on 06/24/17 Trazodone HCl 150 MG TABLET 150 MG PO AT BEDTIME PRN insomnia #14 TAB Prescribed by Alverto Fleming MD on 06/24/17 Laboratory Results: Laboratory Tests 08/07/17 1700: Urine Opiates Screen < 100.00, Methadone Screen 50, Barbiturate Screen 79, Ur Phencyclidine Scrn < 6.00, Amphetamines Screen 113, U Benzodiazepines Scrn < 85, Urine Cocaine Screen > 1000 H, Urine Cannabis Screen > 80.00 H 08/07/17 1645: Anion Gap 14, Estimated GFR > 60, BUN/Creatinine Ratio 15.4, Glucose 111 H, Calcium 9.5, Magnesium 2.0, Total Bilirubin 1.0, AST 19, ALT 49, Alkaline Phosphatase 54, Creatine Kinase 100, Troponin I < 0.01, Total Protein 7.4, Albumin 4.7, Globulin 2.7, Albumin/Globulin Ratio 1.7, CBC w Diff NO MAN DIFF REQ, RBC 5.30, MCV 91.2, MCH 31.8 H, RDW 12.4, MPV 6.8 L, Gran % 54.9, Lymphocytes % 32.5, Monocytes % 11.0 H, Eosinophils % 1.1, Basophils % 0.5, Absolute Granulocytes 2.0, Absolute Lymphocytes 1.2, Absolute Monocytes 0.4, Absolute Eosinophils 0, Absolute Basophils 0, PUBS MCHC 34.9, Salicylates < 1.0, Acetaminophen < 10.0 L, Valproic Acid 11.1 L, Serum Alcohol < 10.0 Past History Past Medical History Neurological: delerium tremens, restless leg syndrome, ETOH withdrawal seizures EENT: NONE Cardiovascular: hypertension, hyperlipidemia Respiratory: NONE Gastrointestinal: NONE Hepatic: NONE Renal: NONE Musculoskeletal: Left knee meniscal tear Psychiatric: alcohol dependence, anxiety, bipolar disease, depression, insomnia, substance abuse, Suicidal ideation, overdose suicide attempt X 15 Endocrine: NONE Blood Disorders: NONE Cancer(s): NONE BALLOON DIPPER/Reproductive: 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 Physical Limitations (Interventions): Chronic pattern of relapse Psychiatric Treatment History Psych Treatment Psychiatric Treatment Yes Inpatient Treatment Yes Outpatient Treatment Yes Location of Treatment [facility] Reason for Treatment Bipolar Disorder, Cocaine Use Disorder, Suicide Ideation Dates of Treatment multiple starting in 2014- present Response to Treatment pt has chronic suicidality with multiple attempts 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 Hypertension Benzodiazepine (clonazepam) dependence (temporarily prescribed until Paxil dosing is optimized) Substance Use/Abuse History Drug Use/Abuse 1 Substances Used/Abused Yes Substance Used/Abused Marijuana First Use 13 Last Used 08/07/17 How much used/taken unk How often daily since relapsed on 08/05/17 For how long see above Route of use inhalation Drug Use/Abuse 2 Substances Used/Abused Yes Substance Used/Abused Cocaine First Use unk Last Used 08/07/17 How much used/taken $200 worth How often daily since 08/05/17 For how long long history with short periods of sobreity Route of use Nasaly Substance Abuse Treatment Substance Abuse Treatment Past Substance Abuse TX Yes Inpatient Treatment Yes Outpatient Treatment Yes Location of Treatment [facility] Reason for Treatment Alcohol Use Disorder Dates of Treatment multiple Response to Treatment patient has been unable to sustain sobreity consistantly since 2013 Current Mental Status Mental Status Orientation: Current situation, Person, Place, did not know the day of the week or date Affect: Flat, Hopeless, Sad Speech: Soft Neuro-vegetative: Anhedonia, Energy Decreased Appearance Appearance- Dress/Hygiene: pt presented in hospital attire. No remarkable features Behaviors Thought Process: WNL Thought Content: WNL Memory: Impaired Insight: Fair SI/HI Risk Assessment Past Suicidal Ideation/Attempts Yes Current Suicidal Ideation/Att Yes Past Homicidal Ideation/Att: No Current Homicidal Ideation/Attempts No Degree of Intent: Plan, States Intent, attempt 08/07/17 by Overdose of Seroquel Danger To: Self Gravely Disabled: Poor Impulse Control, Poor Judgment Risk Factors: history of suicide atmpts, SA/MH hospitalized, substance abuse, isolate/no social support, poor impulse control, lack of outcome concern, lives alone, male Lethality Ratin PTSD Checklist PTSD Done? 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 Currently endorses SI at this time Type of IP Admission: Voluntary Referrals Mary PRIETO,Niko Mckeon (PCP/Family)
[2017-08-08 12:08] VITALS: BP 114/83
[2017-08-08 12:12] VITALS: BP 144/83
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
--- NOTE | 2017-08-08 14:04 | History & Physical ---
General Information and HPI History of Present Illness: This young male is admitted again to the hospital because of increasing depression and drug abuse as well as alcohol abuse he was recently discharged from the hospital psychiatric floor and admits that he was not taking his medication regularly. He admits that he was feeling more depressed and getting suicidal thoughts. He claims that he tried suicide by taking a lot of Seroquel at one time and it was a handful of Seroquel according to the patient. He was brought to the hospital by his friend dropped him. He does not have any significant medical problems in the past and is fairly healthy in general. He has not had any injuries or medical problem since the last discharge and admits to smoking about half a pack of cigarettes as well as drinking alcohol and he was doing cocaine and some other drugs including marijuana. Allergies/Medications Allergies: Coded Allergies: cyclobenzaprine (TREMORS 08/07/17) bupropion (Mild, Increase in afshan, reported on a previous admission 08/07/17) Home Med list Divalproex Sodium 500 MG TABLET.DR 2 TAB PO BID mood stabilty Divalproex Sodium (Depakote ER) 250 MG TAB.ER.24H 1 TAB PO AT BEDTIME Mood stability Fluoxetine HCl 40 MG CAPSULE 1 CAP PO DAILY depression and anxiety Melatonin 5 MG TABLET 5 MG PO AT BEDTIME sleep aid Meloxicam (Mobic) 15 MG TABLET 1 TAB PO DAILY PRN PAIN Nicotine Polacrilex (Nicorelief) 4 MG GUM 4 MG PO Q2P PRN NICOTINE CRAVINGS Olanzapine 20 MG TABLET 1 TAB PO QPM bipolar symptoms Paroxetine HCl 10 MG TABLET 10 MG PO DAILY deprassion and anxiety for 10 days then STOP Trazodone HCl 150 MG TABLET 150 MG PO AT BEDTIME PRN insomnia Past History Travel History Traveled to [place] past 21 day No Medical History Neurological: delerium tremens, restless leg syndrome, ETOH withdrawal seizures EENT: NONE Cardiovascular: hypertension, hyperlipidemia Respiratory: NONE Gastrointestinal: NONE Hepatic: NONE Renal: NONE Musculoskeletal: Left knee meniscal tear Psychiatric: alcohol dependence, anxiety, bipolar disease, depression, insomnia, substance abuse, Suicidal ideation, overdose suicide attempt X 15 Endocrine: NONE Blood Disorders: NONE Cancer(s): NONE 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 self Services at Home: None Primary Language: Frisian Smoking Status: Current Some Day Smoker ETOH Use: occasional use Illicit Drug Use: marijuana Functional Ability ADLs Independent: dressing, eating, toileting, bathing. Ambulation: independent IADLs Independent: shopping, housework, finances, food prep, telephone, transportation , medication admin. Review of Systems Review of Systems Constitutional: Denies: no symptoms. EENTM: Denies: no symptoms. Cardiovascular: Denies: no symptoms. Respiratory: Denies: no symptoms. GI: Denies: no symptoms. Genitourinary: Denies: no symptoms. Musculoskeletal: Denies: no symptoms. Skin: Denies: no symptoms. Neurological/Psychological: Reports: see HPI, anxiety, depressed, emotional problems. Hematologic/Endocrine: Denies: no symptoms. Exam & Diagnostic Data Last 24 Hrs of Vital Signs/I&O Vital Signs Date Time Temp Pulse Resp B/P B/P Pulse O2 O2 Flow FiO2 Mean Ox Delivery Rate 08/08 1212 98.4 80 144/83 08/08 1208 Room Air 2.0L 08/08 1208 98.4 80 16 114/83 08/08 0958 97.8 80 18 120/86 94 08/08 0609 97.8 86 18 120/88 96 Room Air 08/08 0336 98.5 83 18 110/70 97 Room Air 08/07 2337 98.6 90 18 124/83 98 Room Air 08/07 2106 86 16 107/68 99 Nasal 2.0L Cannula 08/07 1832 98.5 110 17 124/80 92 Nasal 4.0L Cannula 08/07 1706 98.9 08/07 1639 121 15 130/81 91 Room Air Room Air Intake & Output 08/08 1600 08/08 0800 08/08 0000 Intake Total 0 Output Total Balance 0 Intake, Oral 0 Patient 250 lb 250 lb Weight Weight Reported by Patient Measurement Method Physical Exam General Appearance Alert, Oriented X3, Cooperative, No Acute Distress Skin No Rashes, No Breakdown, No Significant Lesion HEENT Atraumatic, PERRLA, EOMI, Mucous Membr. moist/pink Neck Supple, No JVD, No thryomegaly, +2 Carotid Pulse wo Bruit Lymphatic Cervical nl Cardiovascular Regular Rate, Normal S1, Normal S2, No Murmurs, Gallops, Rubs Lungs Clear to Auscultation, Normal Air Movement Abdomen Soft, No Tenderness, No Hepatospenomegaly, No Masses Neurological Exam Findings: Normal Gait, Normal Speech, Strength at 5/5 X4 Ext, Normal Tone, Cranial Nerves 3-12 NL, Reflexes 2+ Cranial Nerves II through XII: Within normal limits and intact. Extremities No Clubbing, No Cyanosis, No Edema, No Tenderness/Swelling Assessment/Plan Assessment: This young male is admitted again to the hospital after recent discharge for essentially the same complaints. He has been feeling increasingly depressed and claims he tried to commit suicide by taking too much Seroquel at the time. There is no new medical problem and his exam is fairly stable and his lab work including CBC electrolytes liver functions are normal and he does not require any medical workup or treatment at this time As Ranked By This Provider Problem List: 1. Suicide ideation 2. Depression 3. ETOH abuse 4. Suicide attempt Miscellaneous Miscellaneous Documentation Attending Case Discussed With: Dave Harkins DO Primary Care Physician: Niko Hernandez MD Patient sees these Specialists None Level of Patient Care: MARICARMEN Pathak Attending MD Review Statement Attending Statement Attending MD Statement: examined this patient, reviewed EMR data (avail), discussed with nursing Attending Assessment/Plan: This young male is admitted again to the hospital after recent discharge because of recurrent use of drug abuse including cocaine as well as marijuana and alcohol. Claimed that he tried to commit suicide by taking too much Seroquel and he admits that he was not taking his medication await was prescribed. He was taking his psychiatric meds only off and on and his friend brought him to the hospital because of attempted suicide by overdosing on Seroquel. His no acute medical problems and he's fairly stable from medical standpoint and does not need any treatment or workup.
--- NOTE | 2017-08-08 15:02 | CPS PROVIDER INIT ASMT PSYCH ---
Psychiatric Admission Nurse Case Management's Note Reviewed: Yes Patient Seen and Examined: Yes Identifying Information: 36-year-old white male with history of bipolar disorder and multiple psychiatric hospitalizations for suicide attempts or suicidal thinking. Chief Complaint: The patient presented to the emergency department at [facility] following a suicide attempt by overdosing on Seroquel. Reportedly the patient stole this from his friend. His urine toxicology was positive for cocaine and cannabis. Reaction to Hospitalization: The patient was admitted voluntarily History of Present Illness Onset of Illness: Patient was just recently discharged from Inpatient Psychiatry he was discharged to continue him off care in [place] and reportedly stay clean and stayed clean for 7 days after his discharge from Inpatient Psychiatry on July 29. Then he relapsed and reported that he has been using $100 worth of cocaine a day. He last used cocaine and cannabis the day before he presented to the emergency department (08/07/2017) Circumstances Leading to Admission: Relapse 1 week after discharge from Inpatient Psychiatry and overdose on Seroquel (stole the Seroquel from a friend) Problem(s) Justifying Need for Admission: Overdose on Seroquel Past Psychiatric History Past Diagnosis(es)- if any: Bipolar disorder, polysubstance use disorder Past Precipitating Factors- if any: Relapsed to drugs - Include inpatient and outpatient treatment Treatment History: Extensive history with multiple inpatient psychiatric hospitalizations History of Suicide Attempts or Gestures History of suicide attempts as well as will set suicidal thinking resulting in repeated admissions Substance Abuse History: Extensive substance abuse history please refer to the numerous previous admissions Allergies: Coded Allergies: cyclobenzaprine (TREMORS 08/07/17) bupropion (Mild, Increase in afshan, reported on a previous admission 08/07/17) Home Med List: The patient did not take the medications for the past couple days but he reported that he is still on the same medications that he was discharged with on July 29 - Include any medical condition(s) that may - impact the patient's recovery/remission Past History Medical History Neurological: delerium tremens, restless leg syndrome, ETOH withdrawal seizures EENT: NONE Cardiovascular: hypertension, hyperlipidemia Respiratory: NONE Gastrointestinal: NONE Hepatic: NONE Renal: NONE Musculoskeletal: Left knee meniscal tear Psychiatric: alcohol dependence, anxiety, bipolar disease, depression, insomnia, substance abuse, Suicidal ideation, overdose suicide attempt X 15 Endocrine: NONE Blood Disorders: NONE Cancer(s): NONE COMMUNICATIONS TECH/Reproductive: NONE History of MRSA: No History of VRE: No History of CDIFF: No Isolation History: Standard Influenza Vaccine: 06/07/17 Surgical History Surgical History: hernia Repair, knee surgery; L meniscal tear umbilical herniorraphy Psychiatric Family/Social Hx Family History Psychiatric Illness: Reportedly mother had depression and anxiety and alcohol use disorder and the father had all call use disorder Substance Use: Both parents had alcohol use disorder Suicides: No known family suicides Social History Living Situation: Patient has his own place/apartment Significant Relationships (family/friends): The patient is he has 4 children but very little contact Education: High school education Vocation/Occupation: 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 - #1 Recognizing dangerous situations. - #2 Coping Skills. - #3 Basic information about quitting. Status of Tobacco Cessation Counseling: #1, #2 AND #3 Completed Cessation Med Status Nicotine Gum Ordered Alcohol Screening - ETOH screen POS if BAL >=80 or Audit-C>= M4/F3 Audit-C Score from Diag Assess: 8 Blood Alcohol Level: Laboratory Tests 08/07 1645 Toxicology Serum Alcohol (<10 MG/DL) < 10.0 Alcohol Use Screening Results: Pos per Audit C &/or BAL - If ETOH counseling indicated - the following topics are required. - #1 Express concern about the patient's - drinking at unhealthy levels, include informing - of national norms for moderate drinking: - men <= 14 drinks/week, max 4 drinks/occasion - women <= 7 drinks/week, max 3 drinks/occasion - #2 Providing feedback, including linking alcohol to - negative physical effects (liver injury, hypertension) - negative emotional effects (relationship problems and - depression) - negative occupational consequences (reduced work - performance) - #3 Advising the patient to abstain from alcohol or - to drink below national norms for moderate drinking - (as listed above). Status of ETOH Use Counseling: #1, #2 AND #3 Completed. Metabolic Screening - Screen if on a Neuroleptic Medication - Metabolic screening should include: - Blood Pressure, BMI, Glucose or Hgb A1c, & a - Lipid profile from within the past 365 days. Metabolic Screening () Not Applicable, patient not on a neuroleptic. OR (X) Patient on a neuroleptic(s) . Enter below results for Hemoglobin A1C, and lipid panel if obtained during the last 365 days. BMI: 32.100 Blood Pressure: 144/83 Laboratory Results From [facility] (If applicable): Lab Amylase 64 U/L 06/29/17 1420 Cholesterol 203 MG/DL H 06/20/17 0636 Cholesterol/HDL Ratio 6 % H 06/20/17 0636 Glucose 111 mg/dL H 08/07/17 1645 HDL Cholesterol 31 mg/dL L 06/20/17 0636 Hemoglobin A1c 5.0 % 06/20/17 0636 LDL Cholesterol, Calc 114 mg/dL 06/20/17 0636 Lactic Acid 0.6 mmol/L L 04/17/16 1812 Serum Osmolality 304 MOSM/KG H 07/25/15 1342 Triglycerides 292 mg/dL H 06/20/17 0636 Exam and Plan Mental Status Examination Ambulation Status: Steady gait Appearance: Unremarkable Attitude towards examiner: Marginally cooperative Psychomotor activity: Reduced psychomotor activity Behavior: No abnormalities Quality of speech: Reduce to quantity, not pressured, not slurred Affect: Blunted Mood: Depressed Suicidal Ideation: Yes Homicidal Ideation: Denied Hallucinations: Denied Paranoid/Delusional Material: Only on cocaine Difficulties with thought organization: No difficulties with thought organization Insight: Poor Judgment: Poor Orientation: Oriented to time place and person Cognition: Seems to have difficulty with attention and concentration Memory Function: No gross impairment in memory Estimate of intellectual functioning: Average Assets/Strengths Patient Identified Assets/Strengths: Resourceful Impression/Plan Impression and Plan: 56-year-old white male who presents following an overdose on Seroquel that he reportedly stole from a friend - Include all active medical diagnosis that require tx DSM 5 Diagnosis(es): Bipolar 1 disorder Polysubstance use disorder - Initial Tx Plan for Active Psych & Medical Conditions Treatment Plan: Inpatient psychiatric care 15 minute checks Nursing assessments once a shift Group therapy in Milieu therapy Social work assessment and discharge planning Resume the same medications that he was discharged on on 07/29/2017 - Factors that would help patient function - in a less restrictive setting. Factors: Abstinence from drugs
[2017-08-08 16:00] VITALS: BP 144/69
[2017-08-08 19:38] VITALS: BP 135/74
[2017-08-09 08:05] VITALS: BP 126/85
--- NOTE | 2017-08-09 09:56 | CP SOUTH PROGRESS NOTE PSYCH ---
Psych (Inpt) Progress Note Progress Note Include the following elements, when applicable: Involvement in the active treatment of the patient with behavioral observations of the patient and the patient's response to the treatment. Review of the ongoing treatment process in the context of the treatment plan. Indication of how multi-disciplinary staff members are carrying out the treatment plan. Plans for future interventions and recommendations for revision of the treatment plan. Liaison with other physicians/providers. Progress Note: Pt notes that he is "not great." He notes poor sleep with FDA. He addition, he feels very anxious. Notes passive SI but denies more active or plan. Current Medications Sig/Minerva Start time Last Medication Dose Route Stop Time Status Admin Acetaminophen 650 MG Q4P PRN 08/08 1445 AC PO Al Hydroxide/Mg 30 ML Q4-6 PRN PRN 08/08 1445 AC Hydroxide PO Divalproex Sodium 1,000 MG BID 08/08 2200 AC 08/09 PO 0829 Fluoxetine HCl 40 MG DAILY 08/08 1450 AC 08/09 PO 0830 Ibuprofen 600 MG Q6P PRN 08/08 1500 AC PO Magnesium Hydroxide 30 ML AT BEDTIME NEED.. 08/08 1445 AC PO Melatonin 5 MG AT BEDTIME 08/08 2200 AC 08/08 PO 2121 Nicotine 4 MG Q2P PRN 08/08 2045 AC 08/09 PO 0831 Nicotine 2 MG Q2P PRN 08/08 1445 DC 08/08 PO 1910 Olanzapine 20 MG AT BEDTIME 08/08 2200 AC 08/08 PO 2121 Trazodone HCl 150 MG AT BEDTIME PRN 08/08 1500 AC PO Laboratory Tests 08/07 08/07 1700 1645 Chemistry Sodium (137 - 145 mmol/L) 144 Potassium (3.5 - 5.1 mmol/L) 4.0 Chloride (98 - 107 mmol/L) 105 Carbon Dioxide (22 - 30 mmol/L) 25 Anion Gap (5 - 16) 14 BUN (9 - 20 mg/dL) 20 Creatinine (0.7 - 1.2 mg/dL) 1.3 H Estimated GFR (>60 ml/min) > 60 BUN/Creatinine Ratio (7 - 25 %) 15.4 Glucose (65 - 99 mg/dL) 111 H Calcium (8.4 - 10.2 mg/dL) 9.5 Magnesium (1.6 - 2.3 mg/dL) 2.0 Total Bilirubin (0.2 - 1.3 mg/dL) 1.0 AST (17 - 59 U/L) 19 ALT (21 - 72 U/L) 49 Alkaline Phosphatase (< 127 U/L) 54 Creatine Kinase (55 - 170 U/L) 100 Troponin I (<0.11 ng/ml) < 0.01 Total Protein (6.3 - 8.2 g/dL) 7.4 Albumin (3.5 - 5.0 g/dL) 4.7 Globulin (1.9 - 4.2 gm/dL) 2.7 Albumin/Globulin Ratio (1.1 - 2.2 %) 1.7 Hematology CBC w Diff NO MAN DIFF REQ WBC (4.8 - 10.8 /CUMM) 3.7 L RBC (4.70 - 6.10 /CUMM) 5.30 Hgb (14.0 - 18.0 G/DL) 16.9 Hct (42 - 52 %) 48.3 MCV (80.0 - 94.0 FL) 91.2 MCH (27.0 - 31.0 PG) 31.8 H RDW (11.5 - 14.5 %) 12.4 Plt Count (130 - 400 /CUMM) 202 MPV (7.4 - 10.4 FL) 6.8 L Gran % (42.2 - 75.2 %) 54.9 Lymphocytes % (20.5 - 51.1 %) 32.5 Monocytes % (1.7 - 9.3 %) 11.0 H Eosinophils % (0 - 5 %) 1.1 Basophils % (0.0 - 2.0 %) 0.5 Absolute Granulocytes (1.4 - 6.5 /CUMM) 2.0 Absolute Lymphocytes (1.2 - 3.4 /CUMM) 1.2 Absolute Monocytes (0.10 - 0.60 /CUMM) 0.4 Absolute Eosinophils (0.0 - 0.7 /CUMM) 0 Absolute Basophils (0.0 - 0.2 /CUMM) 0 PUBS MCHC (33.0 - 37.0 G/DL) 34.9 Toxicology Salicylates (0 - 20.0 mg/dL) < 1.0 Urine Opiates Screen (>2000 NG/ML) < 100.00 Methadone Screen (>300 NG/ML) 50 Acetaminophen (10.0 - 30.0 ug/mL) < 10.0 L Barbiturate Screen (>200 NG/ML) 79 Valproic Acid (50 - 120 ug/mL) 11.1 L Ur Phencyclidine Scrn (>25 NG/ML) < 6.00 Amphetamines Screen (>1000 NG/ML) 113 U Benzodiazepines Scrn (>200 NG/ML) < 85 Urine Cocaine Screen (>300 NG/ML) > 1000 H Urine Cannabis Screen (>50 NG/ML) > 80.00 H Serum Alcohol (<10 MG/DL) < 10.0 Vital Signs Date Time Temp Pulse Resp B/P B/P Pulse O2 O2 Flow FiO2 Mean Ox Delivery Rate 08/09 0805 96.9 72 126/85 08/08 1938 98.8 87 135/74 08/08 1600 72 144/69 08/08 1212 98.4 80 144/83 08/08 1208 Room Air 2.0L 08/08 1208 98.4 80 16 114/83 08/08 0958 97.8 80 18 120/86 94 MSE General appearance: fair hygiene and grooming; Attitude: cooperative; Eye contact: appropriate; Movement: no psychomotor agitation or slowing; Speech: nl fluency, nl rate/rhythm, nl volume, nl prosody; Mood: "not great" Affect: irritable, flat, appropriate, constricted, non-labile, congruent; Thought process: linear and goal-directed; Thought content: denied SI or HI, no paranoid ideation; Perception: denied hallucinations- auditory, visual, does not appear to be responding to internal stimuli; I/J: limited A/P: Pt with Bipolar disoder and PSD with continued passive SI and anxiety - Increase melatonin to 9mg - Make trazodone 100mg standing - Added hydroxyzine PRN for anxiety -Encourage integration into the milieu
[2017-08-09 16:01] VITALS: BP 138/96
[2017-08-09 20:27] VITALS: BP 148/90
[2017-08-10 08:24] VITALS: BP 142/70
--- NOTE | 2017-08-10 11:57 | CP SOUTH PROGRESS NOTE PSYCH ---
Psych (Inpt) Progress Note Progress Note Include the following elements, when applicable: Involvement in the active treatment of the patient with behavioral observations of the patient and the patient's response to the treatment. Review of the ongoing treatment process in the context of the treatment plan. Indication of how multi-disciplinary staff members are carrying out the treatment plan. Plans for future interventions and recommendations for revision of the treatment plan. Liaison with other physicians/providers. Progress Note: Pt feels that pretty tough time. He feels that only "time" can help him. Spoke at length about trying to cope. He denies SI or HI. Current Medications Sig/Minerva Start time Last Medication Dose Route Stop Time Status Admin Acetaminophen 650 MG Q4P PRN 08/08 1445 AC PO Al Hydroxide/Mg 30 ML Q4-6 PRN PRN 08/08 1445 AC Hydroxide PO Divalproex Sodium 1,000 MG BID 08/08 2200 AC 08/10 PO 0841 Fluoxetine HCl 40 MG DAILY 08/08 1450 AC 08/10 PO 0841 Hydroxyzine HCl 50 MG Q6P PRN 08/09 1000 AC 08/09 PO 2033 Ibuprofen 600 MG Q6P PRN 08/08 1500 AC PO Magnesium Hydroxide 30 ML AT BEDTIME NEED.. 08/08 1445 AC PO Melatonin 9 MG AT BEDTIME 08/09 2200 AC 08/09 PO 2224 Nicotine 4 MG Q2P PRN 08/08 2045 AC 08/10 PO 1016 Olanzapine 20 MG AT BEDTIME 08/08 2200 AC 08/09 PO 2224 Trazodone HCl 150 MG AT BEDTIME 08/10 2200 AC PO Trazodone HCl 100 MG AT BEDTIME 08/09 2200 DC 08/09 PO 2247 Trazodone HCl 150 MG AT BEDTIME PRN 08/08 1500 DC PO 08/09 2159 Laboratory Tests 08/07 08/07 1700 1645 Chemistry Sodium (137 - 145 mmol/L) 144 Potassium (3.5 - 5.1 mmol/L) 4.0 Chloride (98 - 107 mmol/L) 105 Carbon Dioxide (22 - 30 mmol/L) 25 Anion Gap (5 - 16) 14 BUN (9 - 20 mg/dL) 20 Creatinine (0.7 - 1.2 mg/dL) 1.3 H Estimated GFR (>60 ml/min) > 60 BUN/Creatinine Ratio (7 - 25 %) 15.4 Glucose (65 - 99 mg/dL) 111 H Calcium (8.4 - 10.2 mg/dL) 9.5 Magnesium (1.6 - 2.3 mg/dL) 2.0 Total Bilirubin (0.2 - 1.3 mg/dL) 1.0 AST (17 - 59 U/L) 19 ALT (21 - 72 U/L) 49 Alkaline Phosphatase (< 127 U/L) 54 Creatine Kinase (55 - 170 U/L) 100 Troponin I (<0.11 ng/ml) < 0.01 Total Protein (6.3 - 8.2 g/dL) 7.4 Albumin (3.5 - 5.0 g/dL) 4.7 Globulin (1.9 - 4.2 gm/dL) 2.7 Albumin/Globulin Ratio (1.1 - 2.2 %) 1.7 Hematology CBC w Diff NO MAN DIFF REQ WBC (4.8 - 10.8 /CUMM) 3.7 L RBC (4.70 - 6.10 /CUMM) 5.30 Hgb (14.0 - 18.0 G/DL) 16.9 Hct (42 - 52 %) 48.3 MCV (80.0 - 94.0 FL) 91.2 MCH (27.0 - 31.0 PG) 31.8 H RDW (11.5 - 14.5 %) 12.4 Plt Count (130 - 400 /CUMM) 202 MPV (7.4 - 10.4 FL) 6.8 L Gran % (42.2 - 75.2 %) 54.9 Lymphocytes % (20.5 - 51.1 %) 32.5 Monocytes % (1.7 - 9.3 %) 11.0 H Eosinophils % (0 - 5 %) 1.1 Basophils % (0.0 - 2.0 %) 0.5 Absolute Granulocytes (1.4 - 6.5 /CUMM) 2.0 Absolute Lymphocytes (1.2 - 3.4 /CUMM) 1.2 Absolute Monocytes (0.10 - 0.60 /CUMM) 0.4 Absolute Eosinophils (0.0 - 0.7 /CUMM) 0 Absolute Basophils (0.0 - 0.2 /CUMM) 0 PUBS MCHC (33.0 - 37.0 G/DL) 34.9 Toxicology Salicylates (0 - 20.0 mg/dL) < 1.0 Urine Opiates Screen (>2000 NG/ML) < 100.00 Methadone Screen (>300 NG/ML) 50 Acetaminophen (10.0 - 30.0 ug/mL) < 10.0 L Barbiturate Screen (>200 NG/ML) 79 Valproic Acid (50 - 120 ug/mL) 11.1 L Ur Phencyclidine Scrn (>25 NG/ML) < 6.00 Amphetamines Screen (>1000 NG/ML) 113 U Benzodiazepines Scrn (>200 NG/ML) < 85 Urine Cocaine Screen (>300 NG/ML) > 1000 H Urine Cannabis Screen (>50 NG/ML) > 80.00 H Serum Alcohol (<10 MG/DL) < 10.0 Vital Signs Date Time Temp Pulse Resp B/P B/P Pulse O2 O2 Flow FiO2 Mean Ox Delivery Rate 08/10 0824 97.0 80 142/70 08/09 2027 98.1 79 148/90 08/09 1601 79 138/96 MSE General appearance: fair hygiene and grooming; Attitude: cooperative; Eye contact: appropriate; Movement: no psychomotor agitation or slowing; Speech: nl fluency, nl rate/rhythm, nl volume, nl prosody; Mood: "very tough time" Affect: irritable, flat, appropriate, constricted, non-labile, congruent; Thought process: linear and goal-directed; Thought content: denied SI or HI, no paranoid ideation; Perception: denied hallucinations- auditory, visual, does not appear to be responding to internal stimuli; I/J: limited A/P: Pt with Bipolar disoder and PSD with continued passive SI and anxiety - Continue melatonin to 9mg - Increase trazodone to 150mg standing - Added hydroxyzine PRN for anxiety - VPA level ordered -Encourage integration into the milieu
[2017-08-10 15:56] VITALS: BP 139/73; BP 139/91
[2017-08-10 19:59] VITALS: BP 131/67
[2017-08-11 08:13] VITALS: BP 140/77
--- NOTE | 2017-08-11 13:23 | SOCIAL WORKER PROG NOTE PSYCH ---
Social Work Progress Note Progress Note Martínez was in bed this afternoon. Got up when prompted to meet. Shared that he relapsed while at the [facility]. This is where Martínez was sent after d/c on 07/29. He was clean for about a week. Relapsed with another person in the program. [facility] using and was asked to leave due to the relapse. He returned to his apartment. He was there for a few days and continued to use crack cocaine, marijuana, and alcohol. He stated he has been using 100.00-200.00 of crack and drinking a couple bottles of wine a day. He reported that the friend (Jc) remains at his apartment. He used his Seroquel to overdose with on Friday. The friend is the one that brought him to the ER. Martínez's goal is still to go to rehab. It doesn 't sound like he has done any work in getting into rehab since his d/c from [facility]. He signed releases for [facility], [facility], and [facility]. He feels depressed and is having alot of negative thoughts since his readmission. He is currently having some SI, but feels safe on the unit. Gave him a list of rehabs he could have to make calls.
--- NOTE | 2017-08-11 14:48 | SOCIAL WORKER PROG NOTE PSYCH ---
Social Work Progress Note Progress Note [facility] ONLINE REVIEW COMPLETED.
--- NOTE | 2017-08-11 15:37 | CP SOUTH PROGRESS NOTE PSYCH ---
Psych (Inpt) Progress Note Progress Note I reviewed the notes of Dr. Dianna Hamlin MD (covering psychiatrist for the weekend: Fri and Friday: Aug.09 and 2017). Daniel's treatment and progress were discussed and the interdisciplinary treatment team this morning (nursing staff, social work, group therapists, and activity therapist, and psychiatrist) Pt reported anxiety, normal speech, denies SI or HI. Good hygiene and grooming; cooperative; good eye contact, no psychomotor agitation or slowing; Mood: "down in AM, anxious, constricted affect/non-labile, congruent; Thought process was linear and goal-directed; denied SI or HI, no paranoid ideation; denied hallucinations- does not appear to be responding to internal stimuli; Poor insight and judgment Assessment Pt with Bipolar disorder and PSD admitted following overdose c/o anxiety VPA level is therapeutic Plan: Continue melatonin 9mg at bedtime Continue trazodone 150mg standing at bedtime D/C hydroxyzine PRN for anxiety (he said it was ineffective) Thorazine 50 mg every 4 hours PRN anxiety Increase Prozac to 60 mg daily Encourage integration into the milieu Psychiatrist to provide daily evaluations
[2017-08-11 15:58] VITALS: BP 147/77
[2017-08-11 19:42] VITALS: BP 138/77
[2017-08-12 08:16] VITALS: BP 141/65
[2017-08-12 11:57] VITALS: BP 140/87
--- NOTE | 2017-08-12 12:21 | SOCIAL WORKER PROG NOTE PSYCH ---
Social Work Progress Note Progress Note MAYO SÁNCHEZ [id number] 1980 MAYO SÁNCHEZ [id number] Pended Authorization # Client Authorization # Type of Request [id number] CONCURRENT Date of Admission/ Start of Services Requested From Submission Date 08/08/2017 08/12/2017 08/12/2017 Level of Service Type of Service Level of Care Type of Care
--- NOTE | 2017-08-12 13:56 | CP SOUTH PROGRESS NOTE PSYCH ---
Psych (Inpt) Progress Note Progress Note Daniel's treatment and progress were discussed and the interdisciplinary treatment team this morning (nursing staff, social work, group therapists, and activity therapist, and psychiatrist) Mental Status Examination: Martínez reported still experiencing some anxiety, he felt that 50 mg chlorpromazine was not enough, he said he has high tolerance for Thorazine. normal speech, still having on and off thoughts of suicide, jerome today, denied homicial ideation cooperative; good eye contact, no psychomotor agitation or slowing; mood was "down this morning"/he attributed that to trazodone from the night before constricted affect/non-labile, congruent; thought process was linear and goal- directed; denied SI or HI, no paranoid ideation; denied hallucinations- does not appear to be responding to internal stimuli; poor insight and judgment Assessment: Pt with Bipolar disorder and PSD admitted following overdose C/O anxiety VPA level is therapeutic Plan: Continue melatonin 9 mg at bedtime Reduce trazodone to 100 mg standing at bedtime Increase Thorazine to 100 mg every 6 hours PRN anxiety Continue Prozac 60 mg daily Group Therapy [facility] therapy nursing assessments every shift Psychiatrist to provide daily evaluations
--- NOTE | 2017-08-12 15:11 | SOCIAL WORKER PROG NOTE PSYCH ---
See Addendum Social Work Progress Note Progress Note Martínez was in group this afternoon. He said the mornings have been a struggle for him and that he feels more depressed and unmotivated in the morning. He talked about having alot of negative thoughts and that his perceptions of things are distorted. During this conversation he also shared that he has current SI and he has been thinking about running as fast as he could head first into a door or wall. When asked if he would act on this or be able to talk to someone about it? He said he didn't think he would, but he couldn't be sure. I told him that I was going to share this information with nursing because I wanted to ensure he was safe. He feels he is struggling right now and is wondering if he needs termination clerk hospitalization. He mentioned the idea of [facility] as an option. He isn't sure if he can make it in the community. We talked about the referrals placed to rehab and the follow up phone calls he has made. He said he called [facility] yesterday and got on the waiting list. He has to complete a screening with them. He also talked to Xander at [facility]. and is expecting a call back from him regarding acceptance and wait time. He has had a problem getting a hold of Emily at [facility]. He was able to speak with his [facility] worker Timothy Gill [phone] about his d/c plan.
[2017-08-12 15:49] VITALS: BP 129/91
[2017-08-12 21:34] VITALS: BP 132/77
[2017-08-13 08:13] VITALS: BP 129/68
--- NOTE | 2017-08-13 11:42 | SOCIAL WORKER PROG NOTE PSYCH ---
Social Work Progress Note Progress Note [facility] ONLINE REVIEW COMPLETED, CHECK WEB FOR NEXT REVIEW DATE.
--- NOTE | 2017-08-13 11:47 | CP SOUTH PROGRESS NOTE PSYCH ---
Psych (Inpt) Progress Note Progress Note Martínez's treatment and progress were discussed and the interdisciplinary treatment team this morning (Nursing staff, social work, group therapists, activity therapist, and Psychiatrist) Mental Status Examination: Martínez reported that he has less anxiety than yesterday, he did utilize PRN Thorazine, normal speech, still having on and off thoughts of suicide (yesterday thought of running into a wall), none today, denied homicial ideation, cooperative; good eye contact, no psychomotor agitation or slowing; he reported that mood is still "down" but is better than yesterday, constricted affect/non- labile, congruent; thought process was linear and goal-directed; no paranoid ideation; denied hallucinations, does not appear to be responding to internal stimuli; poor insight and judgment Assessment: Martínez is a 36-year-old single White male with several CPS admissions Pt with Bipolar disorder and PSD admitted following overdose Plan: Continue melatonin 9 mg at bedtime Continue trazodone 100 mg standing at bedtime Increase Thorazine to 100 mg every 6 hours PRN anxiety Continue Prozac 60 mg daily (I offered to reduce dose in case it is contributing to anxiety, he preferred not to and believes his anxiety was a problem before raising dose to 60 mg) Group Therapy [facility] therapy nursing assessments every shift Psychiatrist to provide daily evaluations
[2017-08-13 16:02] VITALS: BP 142/71
--- NOTE | 2017-08-13 17:53 | SOCIAL WORKER PROG NOTE PSYCH ---
Social Work Progress Note Progress Note Paper Products Machine Operator met briefly with Martínez who reported to be feeling okay today. He reported his mood to be "fair" and his anxiety to be a 5/10 and his depression as a 5/10. She denied any suicidal ideation today and said that the [employer] [employer] has been helping with the SI. He reported to be feeling good about going to [facility] on Friday and that his sober friend would be looking after his apartment while he is in the program. [facility] called and requested that Edward be at their program by 11am on Friday, and suggested that we call [place] tomorrow to arrange this, as they have had better luck with [facility] when they have called a day or so in advance.
[2017-08-13 19:28] VITALS: BP 140/77
[2017-08-14 12:06] VITALS: BP 136/77
--- NOTE | 2017-08-14 12:12 | SOCIAL WORKER PROG NOTE PSYCH ---
Social Work Progress Note Progress Note Cell Operation Supervisor [place] [facility] [place]nez reported to be experiencing some anxiety and depression stemming from "starting the process again tomorrow". He voiced some concern about having an "addiction gene" and worrying that he will not be able to overcome it. He also worried that he has passed his mental illness genes to his daughter, who had one suicide attempt last year when she was 11. Cell Operation Supervisor told Martínez that seeing her father overcome his addiction would most likely be very powerful and would set a good example for his daughter, and that he could use this as motivation to participate and stay clean. Cell Operation Supervisor and Martínez also spoke about the length of the program, and whether he felt motivated to stay for the entire 4 months. Martínez said that this time he was going to complete the program. Cell Operation Supervisor stressed the importance of putting his health first above anything else, and that if an opportunity to work arises during the next four months, then he should strongly consider staying and completing the program. Cell Operation Supervisor stated that last time when Martínez left [facility] to make money, there was zero monetary gain, as he spent the money that he made. Martínez laughed appropriately and said that it was a good point. Additionally, he denied suicidal ideation. Cell Operation Supervisor called [employer] and scheduled a ride for Martínez tomorrow. The [employer] packaging sales representative confirmed that they will be here in the morning, approximately at 9am, to bring Martínez to [facility]. for 11am.
--- NOTE | 2017-08-14 15:31 | CP SOUTH PROGRESS NOTE PSYCH ---
Psych (Inpt) Progress Note Progress Note Martínez's treatment and progress were discussed and the interdisciplinary treatment team this morning (Nursing staff, social work, group therapists, activity therapist, and Psychiatrist) Mental Status Examination: less anxiety normal speech, denied thoughts of suicide, denied homicial ideation, cooperative ; good eye contact, no psychomotor agitation or slowing; he reported that mood is still "down" but is better than yesterday, constricted affect/non-labile, congruent; thought process was linear and goal-directed; no paranoid ideation; denied hallucinations, does not appear to be responding to internal stimuli; poor insight and judgment Assessment: Martínez is a 36-year-old single White male with several CPS admissions Pt with Bipolar disorder and PSD admitted following overdose Plan: Continue melatonin 9 mg at bedtime Continue trazodone 100 mg standing at bedtime Continue Thorazine 100 mg every 6 hours PRN anxiety Continue Prozac 60 mg daily (I offered to reduce dose in case it is contributing to anxiety, he preferred not to and believes his anxiety was a problem before raising dose to 60 mg) Group Therapy [facility] therapy nursing assessments every shift Psychiatrist to provide daily evaluations
[2017-08-14] MEDS ORDERED: CHLORPROMAZINE100 M2 PO (15:48)
[2017-08-14] MEDS ORDERED: NICOTINE PO (15:48)
[2017-08-14] MEDS ORDERED: FLUOXETINE HCL20 M2 PO (15:48)
[2017-08-14] MEDS ORDERED: TRAZODONE HCL100 M1 PO (15:48)
[2017-08-14] MEDS ORDERED: MELATONIN3 M4 PO (15:48)
[2017-08-14] MEDS ORDERED: IBUPROFEN600 M1 PO (15:48)
--- NOTE | 2017-08-14 16:20 | SOCIAL WORKER PROG NOTE PSYCH ---
Social Work Progress Note Progress Note Spoke with Juvencio Pham Director at [facility]. She said Martínez should have 2 weeks of meds prescribed from here. He can come with paper scripts or they can be called into [facility] [phone].
[2017-08-14 16:31] VITALS: BP 142/74
[2017-08-14 19:50] VITALS: BP 144/98
--- NOTE | 2017-08-15 07:48 | CP SOUTH PROGRESS NOTE PSYCH ---
Psych (Inpt) Progress Note Progress Note Discharge Note 08/15/2017 Mental Status Examination: Martínez reported that he's ready to go to [facility] and is looking forward to that. He reported that his anxiety is manageable, and denied feeling hopeless or worthless. He denied wishing or thinking of suicide. His speech was normal. He denied violent thoughts and denied homicial ideation. He was cooperative; no psychomotor agitation or slowing; his thought process was linear and goal- directed; no paranoid ideation; denied hallucinations, does not appear to be responding to internal stimuli; chronically poor insight and judgment Assessment: Martínez is a 36-year-old single White male with several CPS admissions. he was admitted this time after relapsing and taking an overdose of Seroquel. Pt with Bipolar disorder and PSD admitted following overdose Plan: Discharge to [facility]. in [place], [place]
[2017-08-15 07:50] VITALS: BP 141/83
--- NOTE | 2017-08-15 08:55 | SOCIAL WORKER PROG NOTE PSYCH ---
Social Work Progress Note Progress Note Martínez looked well this morning. Reports he had a pretty good night. Looking forward to discharging and going to rehab this morning. Reports no SI for the last couple of days. I asked what he was planning to do different this time, since he was at [facility] not too long ago and left. He said he was going to just focus on recovery and not get caught up in cards and other things going on. I asked if there was gambling going on there last time? He said there was. Encouraged him not to get caught up in negative contracts or influences. Martínez seems optimistic. Leaving via [facility] today.
--- NOTE | 2017-08-15 09:08 | DISCHARGE SUMMARY REPORT-PSYCH ---
Visit Information Visit Dates/Diagnosis' Admission Date: 08/08/2017 Discharge Date: 08/15/17 Reason for Admission: Marco A is a 36-year-old white male who was admitted because of suicide attempts by overdosing on Seroquel reportedly he stole the Seroquel from his friend was been staying in his apartment with him. [facility]'s toxicology screen was positive for cocaine and cannabis. He did acknowledge that he relapsed 7 days after his discharge from Inpatient Psychiatry. The patient was discharged from here on Psy Discharge Primary Diag: Mood Disorder Psy Discharge Secondary Diag: Polysubstance Dependence Hospital Course Significant Lab Findings: Urine toxicology was positive for cocaine and cannabis. Patient presented to the emergency department with a valproic acid blood level of 11.1 indicating that he wasn't taking his Depakote prior to coming in his. His Depakote was resumed and his Depakote level went back to 84.5 on 08/11/2017 shows most recent him his hemoglobin A1c was 5% on 06/20/2017 also on 06/20/2017 his triglycerides were elevated at 292 cholesterol minor elevation at 2 or 3 and the LDL cholesterol was within normal at 114 HDL cholesterol was low at 31 Course Complications: No complications while [facility] was on Inpatient Psychiatry Consultations: The patient had a history and physical examination by Dr. Cruz on 08/08/2017. The physical exam showed that there were no physical health problems that required attention while he was at Inpatient Psychiatry Allergies: Coded Allergies: cyclobenzaprine (TREMORS 08/07/17) bupropion (Mild, Increase in afshan, reported on a previous admission 08/07/17) Hospital Course/TX Response: Marco A had a relatively short state compared to his previous experiences at Inpatient Psychiatry He did have issues with anxiety for which he was prescribed as needed doses of Thorazine. Otherwise negative there were no major complications when he was on the inpatient unit and he was happy about bed opening at [facility]. in [place], [place] for 08/15/2017. Mental Status Examination: Martínez reported that he's ready to go to [facility]. and is looking forward to that. He reported that his anxiety is manageable, and denied feeling hopeless or worthless. He denied wishing or thinking of suicide. His speech was normal. He denied violent thoughts and denied homicial ideation. He was cooperative; no psychomotor agitation or slowing; his thought process was linear and goal- directed; no paranoid ideation; denied hallucinations, does not appear to be responding to internal stimuli; chronically poor insight and judgment Assessment: Martínez is a 36-year-old single White male with several CPS admissions. he was admitted this time after relapsing and taking an overdose of Seroquel. Pt with Bipolar disorder and PSD admitted following overdose Plan: Discharge to [facility] in [place], [place] Discharge HBIPS - Tobacco Use Treatment Offered Post DC Medications Offered: Script Given-See Med List Post DC Tobacco Treatment Plan: Other Tobacco Tx [facility] Program Appt Date: 08/15/17 Program Appt Time: 0900 - EtOH/Drug Use D/O Treatment Offered Post DC Medications Offered: Med Not Indicated for D/O Post DC EtOH/SubAbuse TX Plan: Other SubAbuse/Dual Pgm Program Appt Date: 08/15/17 Program Appt Time: 0900 Metabolic Screening - Screen if on a Neuroleptic Medication - Metabolic screening should include: - Blood Pressure, BMI, Glucose or Hgb A1c, & a - Lipid profile from within the past 365 days. Metabolic Screening Patient on a neuroleptic(s) . Lab Cholesterol 203 MG/DL H 06/20/17 0636 Cholesterol/HDL Ratio 6 % H 06/20/17 0636 HDL Cholesterol 31 mg/dL L 06/20/17 0636 Hemoglobin A1c 5.0 % 06/20/17 0636 LDL Cholesterol, Calc 114 mg/dL 06/20/17 0636 Lactic Acid 0.6 mmol/L L 04/17/16 1812 Serum Osmolality 304 MOSM/KG H 07/25/15 1342 Triglycerides 292 mg/dL H 06/20/17 0636 BMI: 32.100 Blood Pressure: 141/83 Discharge Instructions General Discharge Information Multiple Neuroleptics: (X]) Not Applicable OR Document below three failed attempts at monotherapy, or a plan to taper to monotherapy, or augmentation of Clozapine. () Discharge Diet Regular Discharge Activity Normal DC Disposition: [facility] Referrals Ordered Referrals Provider Referral 08/15/17 For Groups: [[facility]] [facility] adm 08/15/17 [address] [place] [address] Prescriptions Stop taking the following medications: Nicotine Polacrilex (Nicorelief) 4 MG GUM ORAL EVERY 2 HOURS NEEDED as needed for NICOTINE CRAVINGS Qty = 100 Trazodone HCl (Trazodone HCl) 150 MG TABLET ORAL AT BEDTIME as needed for insomnia Qty = 14 Meloxicam (Mobic) 15 MG TABLET ORAL DAILY as needed for PAIN Qty = 10 Divalproex Sodium (Depakote ER) 250 MG TAB.ER.24H ORAL AT BEDTIME Qty = 15 Fluoxetine HCl (Fluoxetine HCl) 40 MG CAPSULE ORAL DAILY Qty = 15 Paroxetine HCl (Paroxetine HCl) 10 MG TABLET ORAL DAILY Qty = 10 Melatonin (Melatonin) 5 MG TABLET ORAL AT BEDTIME Qty = 15 Continue taking these medications: Olanzapine (Olanzapine) 20 MG TABLET 1 Tablet ORAL Every night Qty = 14 Comments: Last Taken:08/14/17 Time:2100 Divalproex Sodium (Divalproex Sodium) 500 MG TABLET.DR 2 Tablet ORAL TWICE DAILY Qty = 60 Comments: Last Taken:08/14/17 Time:0830 Start taking the following new medications: Ibuprofen (Ibuprofen) 600 MG TABLET 600 Milligram ORAL EVERY SIX HOURS NEEDED as needed for PAIN SCALE 4-6 ( MODERATE) Qty = 90 No Refills Comments: Last Taken: Time: NOT TAKEN DURING THIS STAY Fluoxetine HCl (Fluoxetine HCl) 20 MG CAPSULE 60 Milligram ORAL DAILY Qty = 90 No Refills Comments: Last Taken:08/15/17 Time:0800 Trazodone HCl (Trazodone HCl) 100 MG TABLET 100 Milligram ORAL AT BEDTIME Qty = 30 No Refills Comments: Last Taken:08/14/17 Time:2200 Chlorpromazine HCl (Chlorpromazine HCl) 100 MG TABLET 100 Milligram ORAL EVERY 4 HOURS NEEDED as needed for anxiety, agitation, or SI Qty = 60 No Refills Comments: Last Taken:08/14/17 Time:2111 Melatonin (Melatonin) 3 MG TABLET 9 Milligram ORAL AT BEDTIME Qty = 90 No Refills Comments: Last Taken:08/14/17 Time:2100 Nicotine Polacrilex (Nicotine Lozenge) 4 MG LOZNG.MINI 4 Milligram ORAL EVERY 2 HOURS NEEDED as needed for nicotine cravings Qty = 90 No Refills Comments: Last Taken:08/15/17 Time:0730 Copies To: [facility]
--- NOTE | 2017-08-15 14:07 | SOCIAL WORKER PROG NOTE PSYCH ---
Social Work Progress Note Faxed Referral(s) Referred To: [facility] Transition of Care Documents sent: Health Summary Faxed to: [facility]. Fax #: [phone] Faxed by: Amanda Peoples Date faxed: 08/15/17 Time Faxed: [phone]
--- NOTE | 2017-08-15 14:33 | SOCIAL WORKER PROG NOTE PSYCH ---
Social Work Progress Note Progress Note Discharge completed online [facility].
== END 2017-08-15 12:24 | DRG 753 ==
LOC: ERH 16:24 → ERHI 19:39 → CANBEDREQ 08-08 11:30 → ENRESERV 08-08 11:41 → CP SOUTH 08-08 11:49 → ERHI 08-08 11:50 → CP SOUTH 08-08 11:50
PROVIDERS: Physician Assistant
DX: F31.9 Bipolar disorder, unspecified (principal); F19.20 Other psychoactive substance dependence, uncomplicated
CPT/HCPCS: 36415; 71045; 80307; 93005; 93010; 96360; G0480; J3230

== ENCOUNTER 2017-11-28 12:32 | Inpatient (IN) | payer OTHER ==
[~2017-11-28] VITALS: Ht 188 cm; Wt 115.3 kg
[~2017-11-28 12:32] MED LIST changes: +CHLORPROMAZINE100 M2 PO; +FLUOXETINE HCL20 M2 PO; +IBUPROFEN600 M1 PO; +MELATONIN3 M4 PO; +NICOTINE PO
--- NOTE | 2017-11-28 12:47 | ED AMS/SEIZURE/WEAK/DIZZY ---
See Addendum History of Present Illness General Chief Complaint: General Adult Stated Complaint: BIBA FOR OD Source: patient, EMS Exam Limitations: clinical condition Vital Signs & Intake/Output Vital Signs & Intake/Output Vital Signs Date Time Temp Pulse Resp B/P B/P Pulse O2 O2 Flow FiO2 Mean Ox Delivery Rate 11/28 2307 97.9 90 18 146/80 95 Room Air 11/28 2211 98.5 92 18 145/80 98 Room Air 11/28 2022 96 18 137/77 98 Room Air 11/28 1828 94 20 138/74 96 Nasal 4.0L Cannula 11/28 1741 94 20 130/74 94 Nasal 4.0L Cannula 11/28 1620 97.8 90 18 106/67 96 Room Air 11/28 1518 97.9 84 18 104/56 95 Non 10L ReBreather 11/28 1445 97.0 85 20 110/51 98 Non 10L ReBreather 11/28 1343 98.2 93 20 97/54 96 Non 10L ReBreather 11/28 1315 98.3 95 20 93/52 97 Non 10L ReBreather 11/28 1301 93 101/54 96 11/28 1301 98 Non 10L ReBreather 11/28 1244 98.0 102 20 117/61 96 Non 100% ReBreather ED Intake and Output 11/29 0000 11/28 1200 Intake Total Output Total 1960 Balance -1959 Output, Urine 1959 Allergies Coded Allergies: cyclobenzaprine (TREMORS 08/07/17) bupropion (Mild, Increase in afshan, reported on a previous admission 08/07/17) Reconcile Medications Chlorpromazine HCl 100 MG TABLET 100 MG PO Q4 HRS NEEDED PRN anxiety, agitation, or SI Divalproex Sodium 500 MG TABLET.DR 2 TAB PO BID mood stabilty Fluoxetine HCl 20 MG CAPSULE 60 MG PO DAILY depression Ibuprofen 600 MG TABLET 600 MG PO Q6P PRN PAIN SCALE 4-6 (MODERATE) Melatonin 3 MG TABLET 9 MG PO AT BEDTIME sleep Nicotine Polacrilex (Nicotine Lozenge) 4 MG LOZNG.MINI 4 MG PO Q2 HRS NEEDED PRN nicotine cravings Olanzapine 20 MG TABLET 1 TAB PO QPM bipolar symptoms Trazodone HCl 100 MG TABLET 100 MG PO AT BEDTIME insomnia Triage Nurses Notes Reviewed? yes HPI: Patient presents for evaluation of an overdose. Apparently the patient called 911 after he had taken approximately 200 tablets of various medications. Upon presentation to the emergency department the patient is very sedated but responds briskly to a sternal rub with purposeful movement. He is unable to provide history. (Lyn PRIETO,Dave Marte) Past History Travel History Traveled to [place] past 21 day No Medical History Any Pertinent Medical History? see below for history Neurological: delerium tremens, restless leg syndrome, ETOH withdrawal seizures EENT: NONE Cardiovascular: hypertension, hyperlipidemia Respiratory: NONE Gastrointestinal: NONE Hepatic: NONE Renal: NONE Musculoskeletal: Left knee meniscal tear Psychiatric: alcohol dependence, anxiety, bipolar disease, depression, insomnia, substance abuse, Suicidal ideation, overdose suicide attempt X 15 Endocrine: NONE Blood Disorders: NONE Cancer(s): NONE MANAGER HOME/Reproductive: NONE History of MRSA: No History of VRE: No History of CDIFF: No Influenza Vaccine: 06/07/17 Surgical History Surgical History: hernia repair-umbilical Psychosocial History Who do you live with Patient/Self Services at Home None What is your primary language Estonian Family History Family History, If Any: Relation not specified for: *No pertinent family history Hx Contributory? No (Lyn PRIETO,Dave Marte) Review of Systems Review of Systems Constitutional: Reports: see HPI. Comments Patient unable to provide review of systems (Lyn PRIETO,Dave Marte) Physical Exam Physical Exam General Appearance: See below Comments: Gen.: Well-nourished, well-developed, no acute respiratory distress. Head: Normocephalic, atraumatic. Eyes: Normal inspection bilaterally Ears: Normal inspection bilaterally Nose: Normal inspection Throat/mouth : Moist mucosa , no apparent pill residue Neck: No apparent trauma, no stridor Heart: Regular rate and rhythm, no murmurs rubs or gallops Lungs: Clear to auscultation bilaterally with decreased air entry (patient is not cooperative with deep inspiration) Chest: No apparent trauma, responds briskly to sternal rub Back: Normal range of motion Abdomen: Soft, nondistended, normal bowel sounds Extremities: No signs of trauma, moves all extremities with sternal rub, equal radial pulses, no cyanosis Neurologic: Unable to assess Skin: warm and dry Psychiatric: Unable to assess Core Measures ACS in differential dx? No CVA/TIA Diagnosis No Sepsis Present: No Sepsis Focused Exam Completed? No (Lyn PRIETO,Dave Marte) Progress Differential Diagnosis: UNINTENTIONAL OVERDOSE, INTENTIONAL OVERDOSE, INTOXICATION, TRAUMA, DEHYDRATION, ELECTROLYTE ABNORMALITY Plan of Care: Orders Procedure Date/time Status Continuous Observation Monitor 11/29 0034 Active [place], Insertion/Removal/Asses 11/28 1245 Active Continuous Observation Monitor 11/28 124 Active CULTURE,URINE 11/28 1245 Active URINE DRUG SCREEN FOR ER ONLY 11/28 124 Complete ACETOMINOPHEN 11/28 124 Complete SALICYLATE 11/28 124 Complete PROTHROMBIN TIME 11/28 124 Complete ETHANOL 11/28 124 Complete COMPREHENSIVE METABOLIC PANEL 11/28 124 Complete CBC WITHOUT DIFFERENTIAL 11/28 1245 Complete EKG 11/28 1245 Active Laboratory Tests 11/28/17 1300: Urine Opiates Screen < 100, Methadone Screen 51, Barbiturate Screen < 60, Ur Phencyclidine Scrn < 6.00, Amphetamines Screen 106, U Benzodiazepines Scrn < 85, Urine Cocaine Screen > 1000 H, Urine Cannabis Screen > 80.00 H 11/28/17 1248: Anion Gap 16, Estimated GFR > 60, BUN/Creatinine Ratio 15.5, Glucose 97, Calcium 9.2, Total Bilirubin 1.2, AST 17, ALT 31, Alkaline Phosphatase 56, Total Protein 6.9, Albumin 4.2, Globulin 2.7, Albumin/Globulin Ratio 1.6, PT 13.1 H, INR 1.20 H, CBC w Diff NO MAN DIFF REQ, RBC 4.82, MCV 90.4, MCH 31.9 H, MCHC 35.3, RDW 12.5, MPV 6.9 L, Gran % 57.8, Lymphocytes % 31.2, Monocytes % 10.5 H, Eosinophils % 0.5, Basophils % 0, Absolute Granulocytes 2.5, Absolute Lymphocytes 1.3, Absolute Monocytes 0.4, Absolute Eosinophils 0, Absolute Basophils 0, Salicylates < 1.0, Acetaminophen < 10.0 L, Serum Alcohol 130.0 Microbiology 11/28 1300 URINE ROUT: Urine Culture - RECD Diagnostic Imaging: Discussed w/RAD: CT Scan. Radiology Impression: PATIENT: MAYO SÁNCHEZ PRESENT AGE: 37 PATIENT ACCOUNT NO: [id number] : 79 LOCATION: [facility] ORDERING PHYSICIAN: Dave Nicholson MD SERVICE DATE: 11/28/17-1449 EXAM TYPE: CAT - CT CERV SPINE WO IV CONTRAST; CT HEAD WO IV CONTRAST EXAMINATION: CT HEAD AND CERVICAL SPINE. CLINICAL INFORMATION: History of ethanol use and overdose. COMPARISON: Cervical spine radiographs 12/03/2016. TECHNIQUE: Regional Controller images were obtained. CT acquisition of the head and cervical spine was performed without intravenous administration of contrast. Data was reformatted into multiplanar images at the acquisition workstation. DLP: 1035.9 mGy-cm. FINDINGS: Head: There is no acute intracranial hemorrhage or abnormal extra-axial collection. No intracranial mass effect or midline shift. Lateral and third ventricles are normal. No hydrocephalus. Bergman-white matter differentiation is grossly preserved and there is no evidence of acute territorial infarct. The calvarium and skull base are intact. Mastoid air cells and middle ear cavities are well-aerated. There is moderate to severe disease within the right maxillary sinus and mild disease within sphenoid sinus. The remainder of the paranasal sinuses are well- aerated. Cervical spine: There is scoliosis of the cervical spine that is likely positional with a rightward convex curvature centered at the cervicothoracic junction. Alignment is normal in the sagittal dimension. Vertebral heights are preserved. No acute fracture. No abnormal prevertebral soft tissue swelling. Grossly no evidence of bony canal compromise and no bony neuroforaminal encroachment. Soft tissues of the neck are unremarkable. There is minimal subsegmental atelectasis at the apices of both lungs. Soft tissues of the neck are unremarkable. IMPRESSION: Head: No acute intracranial hemorrhage. Cervical spine: No acute cervical spine fracture. DICTATED BY: Joselito Anguiano MD DATE /TIME DICTATED:11/28/171439 JAZZ SINGER:JEAN DATE/TIME TRANSCRIBED: 11/28/171439 CONFIDENTIAL, DO NOT COPY WITHOUT APPROPRIATE AUTHORIZATION. < Electronically signed in Other Vendor System> SIGNED BY: Joselito Anguiano MD 11/28/17 1880 Initial ED EKG: NSR, NONSPECIFIC st SEGMENT CHANGES Prior EKG: changed (NL ST SEGS ON PRIOR) Comments: 11/28/2017 8:29:59 PM patient signed out to Dr. Cornelius at shift change coordinator. (Lyn PRIETO,Dave Marte) Departure Departure Disposition: STILL A PATIENT Condition: Stable Clinical Impression Primary Impression: Polysubstance abuse Referrals: Mary PRIETO,Niko Mckeon (PCP/Family) Departure Forms: Customer Survey General Discharge Information (Lyn PRIETO,Dave Marte) Departure Comments 11/28/17, 20:53... Pt somnolent, lethargic, but easily arousable.... will await sobriety and re-evaluate. PA/TEST DEVELOPER Co-Sign Statement Statement: ED Attending supervision documentation- [] I saw and evaluated the patient. I have also reviewed all the pertinent lab results and diagnostic results. I agree with the findings and the plan of care as documented in the PA's/TEST DEVELOPER's documentation. [x] I have reviewed the ED Record and agree with the PA's/TEST DEVELOPER's documentation. [] Additions or exceptions (if any) to the PAs/TEST DEVELOPER's note and plan are summarized below: [] (Adryan PRIETO,Alverto Adkins)
[2017-11-28 13:15] LABS: PT 13.1 SEC (9.4-12.5)
[2017-11-28 13:21] LABS: ABSOLUTE BASOPHIL COUNT 0 /CUMM (0.0-0.2); ABSOLUTE EOSINOPHIL COUNT 0 /CUMM (0.0-0.7); ABSOLUTE GRANULOCYTE CT 2.5 /CUMM (1.4-6.5); ABSOLUTE LYMPH COUNT 1.3 /CUMM (1.2-3.4); ABSOLUTE MONOCYTE COUNT 0.4 /CUMM (0.10-0.60); BASOPHIL % 0 % (0.0-2.0); EOSINOPHIL % 0.5 % (0-5); GRANULOCYTE % 57.8 % (42.2-75.2); HEMATOCRIT 43.6 % (42-52); MEAN CORPUSCULAR HGB 31.9 PG (27.0-31.0); MEAN CORPUSCULAR HGB CONC 35.3 G/DL (33.0-37.0); MEAN CORPUSCULAR VOLUME 90.4 FL (80.0-94.0); MEAN PLATELET VOLUME 6.9 FL (7.4-10.4); PLATELET COUNT 224 /CUMM (130-400); RBC DISTRIBUTION WIDTH 12.5 % (11.5-14.5); RED BLOOD CELL CT 4.82 /CUMM (4.70-6.10); WHITE BLOOD CELL COUNT 4.3 /CUMM (4.8-10.8)
--- NOTE | 2017-11-28 14:57 | CT SCAN REPORT ---
EXAMINATION: CT HEAD AND CERVICAL SPINE. CLINICAL INFORMATION: History of ethanol use and overdose. COMPARISON: Cervical spine radiographs 12/03/2016. TECHNIQUE: Golf Player Assistant images were obtained. CT acquisition of the head and cervical spine was performed without intravenous administration of contrast. Data was reformatted into multiplanar images at the acquisition workstation. DLP: 1035.9 mGy-cm. FINDINGS: Head: There is no acute intracranial hemorrhage or abnormal extra-axial collection. No intracranial mass effect or midline shift. Lateral and third ventricles are normal. No hydrocephalus. Bergman-white matter differentiation is grossly preserved and there is no evidence of acute territorial infarct. The calvarium and skull base are intact. Mastoid air cells and middle ear cavities are well-aerated. There is moderate to severe disease within the right maxillary sinus and mild disease within sphenoid sinus. The remainder of the paranasal sinuses are well-aerated. Cervical spine: There is scoliosis of the cervical spine that is likely positional with a rightward convex curvature centered at the cervicothoracic junction. Alignment is normal in the sagittal dimension. Vertebral heights are preserved. No acute fracture. No abnormal prevertebral soft tissue swelling. Grossly no evidence of bony canal compromise and no bony neuroforaminal encroachment. Soft tissues of the neck are unremarkable. There is minimal subsegmental atelectasis at the apices of both lungs. Soft tissues of the neck are unremarkable. IMPRESSION: Head: No acute intracranial hemorrhage. Cervical spine: No acute cervical spine fracture.
--- NOTE | 2017-11-29 13:42 | History & Physical ---
Nathaniel Rod MD 11/29/17 1341: General Information and [facility] MD Statement: I have seen and personally examined MAYO SÁNCHEZ and documented this H&P. The patient is a 37 year old M who presented with a patient stated chief complaint of intentional overdose. Source of Information: patient, old records Exam Limitations: clinical condition History of Present Illness: 36 year old male with past medical history of polysubstance abuse, EtOH detox ( 12/2016), alcohol withdrawal seizures/DT's, bipolar disorder, anxiety/depression , multiple suicide attempts via OD with 8 inpatient psych stays in past few years most recently twice in 07/2017 is admitted after an intentional overdose with numerous psychiatric medications in combination with cocaine. The patient is actively suicidal and still has residual somnolence limiting the history. Reportedly he lives [place] with a roommate, uses cocaine/MJ/EtOH occasionally, and has intermittent employment. He states he has not seen an individual psychiatrist in a while and had an intake at [facility] last week but hasn't been back. He said that doctor made a mistake by filling all his medications at once. He reportedly took the full bottles of zyprexa, trazodone, buspar, and thorazine all at once after using $50 of cocaine. He said his intention was to kill himself. He reports that he doesn't want to talk about why he tried to kill himself but did mention that he has four daughters with two women (one in [place]) that he is unable to see and is upset about. He reports that all his prior suicide attempts have involved overdoses with medications. He said he took the pills at home, after a short period of time, he began to feel unwell and called 911. In the ED, he was very lethargic but would awaken, minimally respond, and follow commands to sternal rub/painful stimuli, therefore crisis was unable to completely assess him in the emergency department. Laboratories were unremarkable, and CT Head/C-spine were negative. His QTc was prolonged on EKG and he was admitted to telemetry for cardiac monitoring. Allergies/Medications Allergies: Coded Allergies: cyclobenzaprine (TREMORS 08/07/17) bupropion (Mild, Increase in afshan, reported on a previous admission 08/07/17) Home Med list Chlorpromazine HCl 100 MG TABLET 100 MG PO Q4 HRS NEEDED PRN anxiety, agitation, or SI Divalproex Sodium 500 MG TABLET.DR 2 TAB PO BID mood stabilty Fluoxetine HCl 20 MG CAPSULE 60 MG PO DAILY depression Ibuprofen 600 MG TABLET 600 MG PO Q6P PRN PAIN SCALE 4-6 (MODERATE) Melatonin 3 MG TABLET 9 MG PO AT BEDTIME sleep Nicotine Polacrilex (Nicotine Lozenge) 4 MG LOZNG.MINI 4 MG PO Q2 HRS NEEDED PRN nicotine cravings Olanzapine 20 MG TABLET 1 TAB PO QPM bipolar symptoms Trazodone HCl 100 MG TABLET 100 MG PO AT BEDTIME insomnia Compliance With Home Meds: POOR Past History Travel History Traveled to [place] past 21 day No Medical History Neurological: delerium tremens, restless leg syndrome, ETOH withdrawal seizures EENT: NONE Cardiovascular: hypertension, hyperlipidemia Respiratory: NONE Gastrointestinal: NONE Hepatic: NONE Renal: NONE Musculoskeletal: Left knee meniscal tear Psychiatric: alcohol dependence, anxiety, bipolar disease, depression, insomnia, substance abuse, Suicidal ideation, overdose suicide attempt X 15 Endocrine: NONE Blood Disorders: NONE Cancer(s): NONE 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 self Services at Home: None Primary Language: Kittitian Smoking Status: Current Everyday Smoker ETOH Use: 6 Illicit Drug Use: UTD Functional Ability ADLs Independent: dressing, eating, toileting, bathing. Ambulation: independent IADLs Independent: shopping, housework, finances, food prep, telephone, transportation , medication admin. Review of Systems Review of Systems Constitutional: Denies: chills, diaphoresis, fever, malaise. EENTM: Reports: no symptoms. Cardiovascular: Denies: chest pain, palpitations, syncope. Respiratory: Denies: cough, hemoptysis, short of breath. GI: Denies: abdominal pain, diarrhea, nausea, vomiting. Genitourinary: Denies: dysuria, frequency. Musculoskeletal: Reports: no symptoms, back pain, joint pain. Skin: Reports: no symptoms. Neurological/Psychological: Reports: anxiety, depressed, emotional problems. Denies: weakness. Hematologic/Endocrine: Reports: no symptoms. Immunologic/Allergic: Reports: no symptoms. All Other Systems: Reviewed and Negative Exam & Diagnostic Data Last 24 Hrs of Vital Signs/I&O Vital Signs Date Time Temp Pulse Resp B/P B/P Pulse O2 O2 Flow FiO2 Mean Ox Delivery Rate 05 1327 96.5 72 18 130/81 95 Room Air 05/ 1219 98.6 74 18 123/74 94 Room Air 11/29 1001 97.0 78 18 115/68 94 Room Air 05 0721 98.6 80 18 141/90 94 Room Air 05/ 0505 82 16 154/81 94 Room Air 05 0319 97.0 85 16 147/70 93 Room Air 11/29 0101 88 16 132/78 94 Room Air / 2307 97.9 90 18 146/80 95 Room Air 05/ 2211 98.5 92 18 145/80 98 Room Air 11/28 2022 96 18 137/77 98 Room Air 11/28 1828 94 20 138/74 96 Nasal 4.0L Cannula 11/28 1741 94 20 130/74 94 Nasal 4.0L Cannula 11/28 1620 97.8 90 18 106/67 96 Room Air 11/28 1518 97.9 84 18 104/56 95 Non 10L ReBreather Intake & Output 11/29 1600 0505 0800 05 0000 Intake Total Output Total 1200 1200 1140 Balance -1200 -1200 -1140 Output, Urine 1200 1200 1140 Physical Exam General Appearance Alert, Cooperative, No Acute Distress, not oriented to the day Skin poor hygiene on fingernails Neck Supple, No JVD Cardiovascular Regular Rate, Normal S1, Normal S2, No Murmurs Lungs Clear to Auscultation, Normal Air Movement Abdomen Normal Bowel Sounds, Soft, No Tenderness, No Masses Neurological Strength at 5/5 X4 Ext, Normal Tone, Sensation Intact, Cranial Nerves 3-12 NL, non focal neuro exam Extremities No Clubbing, No Cyanosis, No Edema, Normal Pulses Last 24 Hrs of Labs/Dieter: labs unremarkable cr 1.1, INR 1.2, WBC 4.3 Diagnostic Data EKG Results sinus rhythm, qtc prolonged 515 CXR Results none Other Results CT head/neck IMPRESSION: Head: No acute intracranial hemorrhage. Cervical spine: No acute cervical spine fracture. Assessment/Plan Assessment: 36 year old male with past medical history of polysubstance abuse, EtOH detox ( 12/2016), alcohol withdrawal seizures/DT's, bipolar disorder, anxiety/depression , multiple suicide attempts via OD with 8 inpatient psych stays in past few years most recently twice in 07/2017 is admitted after an intentional overdose with numerous psychiatric medications in combination with cocaine. Polysubstance overdose: Greater than 24 hours ago Prolonged QTc on EKG Continue telemetry monitoring Mental status improved in the ED Supportive care Urine toxicology positive for cocaine and marijuana Reported overdose on cocaine, zyprexa, buspar, thorazine and trazodone Psychiatry consultation Patient safety monitor 1:1 for suicidal ideation, patient expressing active SI, no HI Will likely need to be [facility] to [facility] Bipolar/Anxiety/Depression: Hold medications for now Discuss with psychiatry before restarting these medications with recent overdose Continue 1:1 for patient safety/active SI Polysubstance abuse: Patient denies significant alcohol/benzodiazepine intake Reported history of withdrawal seizures in the past Monitor for signs and symptoms of withdrawal CIWA protocol Social work consultation Regular diet DVT ppx-lovenox/ALPs Full code As Ranked By This Provider Problem List: 1. Anxiety 2. ETOH abuse 3. Cocaine abuse 4. Suicide ideation 5. Depression 6. Suicide attempt 7. Polysubstance overdose 8. Polysubstance abuse Core Measures/Misc (04/13) Acute Coronary Syndrome ACS Diagnosis: No Congestive Heart Failure Congestive Heart Failure Diagnosis No Cerebrovascular Accident CVA/TIA Diagnosis: No VTE (View Protocol) VTE Risk Factors Acute Medical Illness No Mechanical VTE Prophylaxis d/t N/A MechProphylax Ordered No VTE Pharm Prophylaxis d/t NA PharmProphylax ordered Sepsis (View protocol) Sepsis Present: No Amira Higuera MD 11/29/17 1349: Attending MD Review Statement Attending Statement Attending MD Statement: examined this patient, discuss w/resident/PA/WIRE STITCHER, agreed w/resident/PA/WIRE STITCHER, reviewed EMR data (avail), discussed with nursing, reviewed images Attending Assessment/Plan: 37-year-old male extensive psychiatric history with multiple hospitalizations for inpatient psychiatric needs with underlying polysubstance abuse, alcohol use and bipolar disorder. He's been here in the ER now for over 24 hours after being brought in for an intentional overdose. He admitted to using Seroquel, cocaine, cannabis among multiple other substances used. He is an unreliable informant. Off note his acetaminophen and salicylate levels were undetectable and his QRS duration was not prolonged. His QTC was also well within normal limits. At this point will bring him into telemetry for the intentional overdose, will offer supportive care and watch for any arrhythmogenic events associated with the meds consumed. We'll keep a sitter and get a psych consult given the suicidality. Given the previous history of alcohol use and the ongoing cocaine abuse, will have him on the CIWA protocol and use Ativan when necessary . We'll give him thiamine folate multivitamins, DVT prophylaxis and follow closely. JesseCara 11/29/17 1710: Resident Review Statement Resident Statement: examined this patient, discussed with intern product marketing manager, agreed with intern product marketing manager, discussed with nursing, reviewed images Other Findings: This is a 37-year-old male with past medical history significant for multiple psychiatric related hospitalizations, prior polysubstance abuse, bipolar disorder, alcohol use disorder with alcohol withdrawal seizures, anxiety/ depression, multiple suicide attempts was brought to the hospital after ingesting multiple psychiatric medication, to commit suicide. He reports taking multiple psychiatric medication including chlorpromazine, olanzapine, trazodone, buspirone after using cocaine. He reported to be upset recently due to family problems and was evaluated by psychiatry last week. Please see above for more detail. At the time of our interview, the patient reports having suicidal ideation, denies homicidal ideation. He denies any headache, dizziness, lightheadedness, nausea, vomiting, chest pain, shortness of breath. He reports having chronic tremors. Was told that his tremors are a side effect of his psychiatric medications. Physical exam on admission: NAD, AAO 3, neck: Supple, no JVD, CV: RRR, no murmur. Lungs: CTA BL. Abdomen: NL BS, NT, ND. Neurology: Intentional tremor was noted. Cranial nerves III-12 intact, nonfocal, strength range of motion and sensation intact. Extremities: No edema, pulses normal and symmetrical. The patient passed bedside swallow evaluation. Head CT without acute intracranial hemorrhage, cervical spine CT without acute cervical spine fracture. EK11/28/2017: Rate 95, sinus rhythm, ME 156, QRS duration 90, QTc 513 EK11/29/2017: Rate 76,sinus rhythm, ME 164, QRS duration 98, QTC 329 Problem list: #Suicidal attempt; intentional psychiatric drug overdose #Substance use disorder: Cocaine #Bipolar/depression/anxiety disorder #H/o alcohol use disorder Plan: will keep the patient full code.
--- NOTE | 2017-11-29 13:46 | Admission Certification ---
Admission Certification Certification Statement - As attending physician, I certify that at the time of - admission, based on clinical presentation, severity of - symptoms, need for further diagnostic testing and - therapeutic interventions, and risk of adverse outcomes - without in-hospital treatment, in my clinical assessment, - this patient requires an acute hospital stay for a minimum - of two nights or longer. I have also considered psychsocial - factors such as support system, advanced age, financial - issues, cognitive issues, and failed out-patient treatments, - past re-admission history, safety of patient, and lack of - compliance as applicable. Specific rationale supporting this admission is: Intentional overdose and polysubstance abuse, needs telemetry monitoring and psych evaluation
[2017-11-29 15:34] VITALS: BP 118/78
[2017-11-29 22:34] VITALS: BP 120/80
[2017-11-30 06:38] VITALS: BP 130/90
--- NOTE | 2017-11-30 08:53 | PN- Housestaff ---
Reynaldo PRIETO,Niko 11/30/17 0853: Subjective Follow-up For: Suicide attempt with medication overdose History of polysubstance and alcohol use disorder Multiple psych issues including bipolar disorder, anxiety Tele-Events Since Last Visit: Sinus rhythm with HR 60s80s, no acute events Subjective: Patient was seen and examined at bedside. He was somnolent but easily arousable. He had no acute events overnight. He continues to express suicidal ideation, however does not have any concrete plans in place, denies any homicidal ideation. He denies any auditory or visual hallucinations. He endorses mild nausea but no vomiting. He denies any chest pain, shortness of breath, anxiety, lightheadedness, fever, chills. Review of Systems Constitutional: Reports: see HPI. Objective Last 24 Hrs of Vital Signs/I&O Vital Signs Date Time Temp Pulse Resp B/P B/P Pulse O2 O2 Flow FiO2 Mean Ox Delivery Rate 11/30 0638 98.2 70 20 130/90 90 Room Air / 2234 98.2 82 16 120/80 92 Room Air 11/29 1858 Room Air 05/05 1800 82 05/05 1712 95 Room Air 05/05 1700 67 05/05 1534 97.7 79 18 118/78 93 Room Air 05/05 1327 96.5 72 18 130/81 95 Room Air 05/05 1219 98.6 74 18 123/74 94 Room Air 05/05 1001 97.0 78 18 115/68 94 Room Air Intake & Output / 1600 05/06 0800 05/06 0000 Intake Total 120 900 Output Total 875 328 Balance -755 572 Intake, Oral 120 900 Output, Urine 875 328 Patient 249 lb Weight Weight Bed scale Measurement Method Physical Exam General Appearance: Cooperative, No Acute Distress, somnolent but arousable Skin Temp/Moisture Exam: Warm/Dry Cardiovascular: Regular Rate, Normal S1, Normal S2 Lungs: Clear to Auscultation, Normal Air Movement Abdomen: Normal Bowel Sounds, Soft, No Tenderness Neurological: Normal Speech, Normal Tone, Sensation Intact, Cranial Nerves 3-12 NL Extremities: No Clubbing, No Cyanosis, No Edema Current Medications: Current Medications Sig/Minerva Start time Last Medication Dose Route Stop Time Status Admin Enoxaparin Sodium 40 MG DAILY 11/30 0900 AC SC Folic Acid 1 MG DAILY 11/29 1730 11/29 PO 2101 Lorazepam 0 Q1P PRN 11/29 1630 AC IV Multivitamins 1 TAB DAILY 11/29 1730 11/29 PO 2101 Thiamine HCl 100 MG DAILY 11/29 1730 11/29 PO 2101 Last 24 Hrs of Lab/Dieter Results Last 24 Hrs of Labs/Mics: Laboratory Tests 11/30/17 0925: CBC w Diff NO MAN DIFF REQ, RBC 4.84, MCV 92.9, MCH 31.0, MCHC 33.4, RDW 12.5, MPV 7.0 L, Gran % 46.4, Lymphocytes % 38.0, Monocytes % 10.1 H, Eosinophils % 5.2 H, Basophils % 0.3, Absolute Granulocytes 1.9, Absolute Lymphocytes 1.6, Absolute Monocytes 0.4, Absolute Eosinophils 0.2, Absolute Basophils 0 11/30/17618: Anion Gap 9, Estimated GFR > 60, BUN/Creatinine Ratio 18.5 Assessment/Plan Assessment: Patient is a 36-year-old male with a PMH significant for polysubstance abuse, alcohol use disorder, last detox on 01/11, alcohol withdrawal seizures/DTs, multiple suicide attempts by overdose with the prior inpatient psych stays who was admitted after an intentional overdose with numerous psychiatric meds in combination with cocaine. #Polysubstance overdose -We'll discontinue telemetry monitoring after a total of 48 hours -Continue one-to-one safety monitor -Will reconsult psychiatry when patient is medically cleared, currently there are no beds available in Inpatient Psychiatry -We'll hold psychiatric medication for now - Patient has a PEC and cannot leave AMA #Bipolar, anxiety -Will reconsult psychiatry for medication recommendations when patient is medically stable #Alcohol use disorder with history of seizures -Continue CIWA protocol -Follow-up social work recommendations -Ativan when necessary per CIWA -CIWA scores today ranged from 07 #JESS -Small increase in creatinine today, possible prerenal azotemia given patient's somnolence and decreased by mouth intake -We'll continue to monitor BEP Diet: Regular diet, finger foods only DVT prophylaxis: Lovenox, Alps CODE STATUS: Full code Problem List: 1. Bipolar disorder 2. Polysubstance abuse 3. Polysubstance overdose 4. Alcohol use disorder 5. Alcohol withdrawal 6. JESS (acute kidney injury) Pain Ratin Pain Location: none Pain Goal: Remain pain free Pain Plan: pain pathway Tomorrow's Labs & Rationales: cbc, bep Kalen PRIETO,Amira 11/30/17 1240: Attending MD Review Statement Attending Statement Attending MD Statement: examined this patient, discuss w/resident/PA/CHILD WELFARE CASEWORKER, agreed w/resident/PA/CHILD WELFARE CASEWORKER, reviewed EMR data (avail), discussed with nursing, reviewed images Attending Assessment/Plan: Patient is calm and denies any complaints. He is not very cooperative with the exam. He has a sitter and I spoke to Dr. Fleming, the psychiatrist court collections officer who saw him in consult. Given the suicidality and intentional overdose, he is going to have a PEC done and cannot leave the hospital. At 5 PM today he finished 48 hours of monitoring and I think we can safely take him off the monitor them and await inpatient psychiatry admission.
[2017-11-30 10:17] LABS: ABSOLUTE BASOPHIL COUNT 0 /CUMM (0.0-0.2); ABSOLUTE EOSINOPHIL COUNT 0.2 /CUMM (0.0-0.7); ABSOLUTE GRANULOCYTE CT 1.9 /CUMM (1.4-6.5); ABSOLUTE LYMPH COUNT 1.6 /CUMM (1.2-3.4); ABSOLUTE MONOCYTE COUNT 0.4 /CUMM (0.10-0.60); BASOPHIL % 0.3 % (0.0-2.0); EOSINOPHIL % 5.2 % (0-5); GRANULOCYTE % 46.4 % (42.2-75.2); HEMATOCRIT 44.9 % (42-52); MEAN CORPUSCULAR HGB CONC 33.4 G/DL (33.0-37.0); MEAN CORPUSCULAR VOLUME 92.9 FL (80.0-94.0); PLATELET COUNT 201 /CUMM (130-400); RBC DISTRIBUTION WIDTH 12.5 % (11.5-14.5); RED BLOOD CELL CT 4.84 /CUMM (4.70-6.10); WHITE BLOOD CELL COUNT 4.2 /CUMM (4.8-10.8)
--- NOTE | 2017-11-30 14:42 | Cons- Psychiatry ---
Psychiatric Consult Date of Consult: 11/30/17 Allergies: Coded Allergies: cyclobenzaprine (TREMORS 08/07/17) bupropion (Mild, Increase in afshan, reported on a previous admission 08/07/17) Past History Past Medical History Neurological: delerium tremens, restless leg syndrome, ETOH withdrawal seizures EENT: NONE Cardiovascular: hypertension, hyperlipidemia Respiratory: NONE Gastrointestinal: NONE Hepatic: NONE Renal: NONE Musculoskeletal: Left knee meniscal tear Psychiatric: alcohol dependence, anxiety, bipolar disease, depression, insomnia, substance abuse, Suicidal ideation, overdose suicide attempt X 15 Endocrine: NONE Blood Disorders: NONE Cancer(s): NONE 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 Patient seen at 12:22 PM. The patient is a 37-year-old white male known to me from his prior treatment at [facility]. He carries the diagnosis of bipolar disorder and polysubstance abuse. He was admitted on after intentional ingestion of about 200 pills. Please see old records for additional detailed history. Mental status examination: The patient is a white male resting in bed. Sitter was nearby. He is somnolent. He is calm, polite and cooperative. Speech is normal in volume, rate and tone. States he is here after trying to overdose himself with suicidal intent. Reports he had relapsed after a period of staying clean. He was feeling hopeless and disgusted with himself, so he bought some beer. He apparently also used some crack cocaine. When asked how he felt about surviving the overdose, he responded "not that great." Reports he has been medication- compliant. He had treatment for 3 months at [facility]. but he dropped out in October. He was planning to start outpatient individual therapy at [facility]. Affect is subdued and depressed. Mood is kind of depressed. Rates sad mood 8/10 and anxiety 5/10. Feels hopeless and helpless. Regarding worthlessness, answered "not so much." Feels guilty. Reports suicidal ideation. Denies homicidal ideation. Denies auditory and visual hallucinations and paranoid ideation. Insight is limited. Judgment has been poor. There is no apparent thought disorder or delusions. Patient is oriented of intellectual functioning is average. Patient reports he sleeps all right with his medications. Appetite is good. Energy is not so good. IMPRESSION: Bipolar disorder, depressed. Cocaine use disorder. Alcohol use disorder. Status post poly-medication overdose. The patient should be monitored for withdrawal syndrome. Aside from that, I would not advocate restarting any psychiatric medications until the patient has fully cleared from this overdose. Please continue one-to-one sitter, as the patient remains a high suicide risk. I completed a physician's emergency certificate. Please reconsult psychiatry once the patient is medically cleared. We anticipate he will be admitted to [facility] once medically cleared and when there is a bed available on [facility]. Case was discussed briefly with Amira Higuera MD.
[2017-11-30 14:56] VITALS: BP 138/80
[2017-11-30 16:00] VITALS: BP 138/80
[2017-11-30 22:00] VITALS: BP 136/78
[2017-11-30 22:23] VITALS: BP 134/82
[2017-12-01 06:52] VITALS: BP 130/86
--- NOTE | 2017-12-01 07:15 | PN- Housestaff ---
See Addendum Subjective Follow-up For: Suicide attempt with medication overdose History of polysubstance and alcohol use disorder Multiple psych issues including bipolar disorder, anxiety Complaints: no complaints Tele-Events Since Last Visit: off telemetry Subjective: no new complaints remains 1:1 for active SI Review of Systems Constitutional: Reports: see HPI. Objective Last 24 Hrs of Vital Signs/I&O Vital Signs Date Time Temp Pulse Resp B/P B/P Pulse O2 O2 Flow FiO2 Mean Ox Delivery Rate 12/02 651 98.3 70 20 130/86 94 Room Air 11/30 2223 97.6 71 18 134/82 93 Room Air 11/30 2200 98.2 78 18 136/78 / 1600 98.7 74 16 138/80 11/30 1456 98.7 74 16 138/80 96 Room Air Intake & Output 12/01 0800 12/01 0000 11/30 1600 Intake Total 660 600 Output Total Balance 660 600 Intake, Oral 660 600 Patient 115.269 kg Weight Physical Exam General Appearance: Alert, Oriented X3, Cooperative, No Acute Distress Cardiovascular: Regular Rate, Normal S1, Normal S2, No Murmurs Lungs: Clear to Auscultation, Normal Air Movement Abdomen: Normal Bowel Sounds, Soft, No Tenderness, No Masses Extremities: No Clubbing, No Cyanosis, No Edema, Normal Pulses Current Medications: Current Medications Sig/Minerva Start time Last Medication Dose Route Stop Time Status Admin Enoxaparin Sodium 40 MG DAILY 11/30 0900 11/30 SC 1054 Folic Acid 1 MG DAILY 11/29 173 11/30 PO 1054 Lorazepam 0 Q1P PRN 11/29 1630 AC IV Multivitamins 1 TAB DAILY 11/29 173 11/30 PO 1054 Thiamine HCl 100 MG DAILY 11/29 173 11/30 PO 1054 Last 24 Hrs of Lab/Dieter Results Last 24 Hrs of Labs/Mics: Laboratory Tests 12/01/17 0633: Sodium Pending, Potassium Pending, Chloride Pending, Carbon Dioxide Pending, Anion Gap Pending, BUN Pending, Creatinine Pending, BUN/Creatinine Ratio Pending , CBC w Diff Pending, WBC Pending, RBC Pending, Hgb Pending, Hct Pending, MCV Pending, MCH Pending, MCHC Pending, RDW Pending, Plt Count Pending, MPV Pending 11/30/17 0925: CBC w Diff NO MAN DIFF REQ, RBC 4.84, MCV 92.9, MCH 31.0, MCHC 33.4, RDW 12.5, MPV 7.0 L, Gran % 46.4, Lymphocytes % 38.0, Monocytes % 10.1 H, Eosinophils % 5.2 H, Basophils % 0.3, Absolute Granulocytes 1.9, Absolute Lymphocytes 1.6, Absolute Monocytes 0.4, Absolute Eosinophils 0.2, Absolute Basophils 0 Assessment/Plan Assessment: Patient is a 36-year-old male with a PMH significant for polysubstance abuse, alcohol use disorder, last detox on 01/11, alcohol withdrawal seizures/DTs, multiple suicide attempts by overdose with the prior inpatient psych stays who was admitted after an intentional overdose with numerous psychiatric meds in combination with cocaine. Polysubstance overdose QTc no longer prolonged, off telemetry Continue one-to-one safety monitor Hold psychiatric medication pending psychiatry recommendations Patient has a PEC and cannot leave AMA Monitor for withdrawal Bipolar/anxiety/depression Awaiting inpatient psychiatry bed Hold medications Follow up psychiatry recommendations Alcohol use disorder with history of seizures Continue CIWA protocol Follow-up social work recommendations Ativan when necessary per CIWA CIWA scores 07 last 24 hours Elevated creatinine: 1.1 -> 1.3 -> 1.1 today Trend renal function Avoid nephrotoxins Encourage fluid intake Likely prerenal azotemia Regular diet DVT ppx-Lovenox Full code Awaiting inpatient psychiatry bed availability Problem List: 1. Polysubstance abuse 2. Polysubstance overdose 3. Bipolar disorder 4. Alcohol use disorder Pain Ratin Pain Location: n/a Pain Goal: Pain 4 or less Pain Plan: prn Tomorrow's Labs & Rationales: bep
[2017-12-01 08:13] LABS: ABSOLUTE BASOPHIL COUNT 0 /CUMM (0.0-0.2); ABSOLUTE EOSINOPHIL COUNT 0.2 /CUMM (0.0-0.7); ABSOLUTE GRANULOCYTE CT 1.4 /CUMM (1.4-6.5); ABSOLUTE LYMPH COUNT 1.9 /CUMM (1.2-3.4); ABSOLUTE MONOCYTE COUNT 0.4 /CUMM (0.10-0.60); BASOPHIL % 0.3 % (0.0-2.0); EOSINOPHIL % 4.2 % (0-5); GRANULOCYTE % 35.3 % (42.2-75.2); MEAN CORPUSCULAR HGB 31.1 PG (27.0-31.0); MEAN CORPUSCULAR HGB CONC 34.1 G/DL (33.0-37.0); MEAN PLATELET VOLUME 6.9 FL (7.4-10.4); PLATELET COUNT 227 /CUMM (130-400); RBC DISTRIBUTION WIDTH 12.5 % (11.5-14.5); RED BLOOD CELL CT 5.06 /CUMM (4.70-6.10); WHITE BLOOD CELL COUNT 3.8 /CUMM (4.8-10.8)
--- NOTE | 2017-12-01 12:56 | Patient Discharge Instructions ---
Discharge Instructions General Discharge Information You were seen/treated for: suicide attempt drug overdose Special Instructions: You are being discharged to [facility] for inpatient psychiatric care. Follow up with your psychiatrist and recommended therapies. Your medications are all held pending inpatient psychiatry evaluation. Acute Coronary Syndrome Inclusion Criteria At DC or during hospital stay patient has or had the following: ACS DIAGNOSIS No Discharge Core Measures Meds if any: Prescribed or Continued at Discharge Meds if any: NOT Prescribed or Continued at Discharge Congestive Heart Failure Inclusion Criteria At DC or during hospital stay patient has or had the following: CHF DIAGNOSIS No Discharge Core Measures Meds if any: Prescribed or Continued at Discharge Meds if any: NOT Prescribed or Continued at Discharge Cerebrovascular accident Inclusion Criteria At DC or during hospital stay patient has or had the following: CVA/TIA Diagnosis No Discharge Core Measures Meds if any: Prescribed or Continued at Discharge Meds if any: NOT Prescribed or Continued at Discharge Venous thromboembolism Inclusion Criteria VTE Diagnosis No VTE Type NONE VTE Confirmed by (Test) NONE Discharge Core Measures - Per Current guidelines, there needs to be overlap - treatment for the first 5 days of Warfarin therapy. - If discharged on Warfarin prior to 5 days of - overlap therapy, the patient will need to be - assessed for post discharge needs including - *Post discharge parental anticoagulation - *Warfarin and/or parental anticoagulation education - *Follow up date to check INR post discharge At least 5 days overlap therapy as Inpatient No Meds if any: Prescribed or Continued at Discharge Note: Overlap Therapy is Warfarin and Anticoagulant Meds if any: NOT Prescribed or Continued at Discharge
--- NOTE | 2017-12-01 12:58 | Discharge Summary ---
Visit Information Visit Dates Admission Date: 11/29/17 Discharge Date: 12/01/17 Hospital Course Course Attending Physician: Sravan Sesay MD Primary Care Physician: Niko Hernandez MD Hospital Course: 36 year old male with past medical history of polysubstance abuse, EtOH detox ( 12/2016), alcohol withdrawal seizures/DT's, bipolar disorder, anxiety/depression , multiple suicide attempts via medication overdose with eight inpatient psych stays in past few years most recently twice in July 2017 who was admitted after an intentional overdose with numerous psychiatric medications (full bottles of zyprexa, trazodone, buspar, and thorazine-approximately 200 pills) all at once after using $50 of cocaine. The patient reported active suicidal ideation and was put on 1:1 for patient safety. He then called 911 on himself after reportedly not feeling well. On admission, he was somnolent with a prolonged QTc and urine toxicology positive for cocaine and marijuana. He was observed in the emergency department for approximately 24 hours prior to admission to telemetry for prolonged QTc. This resolved the next day and telemetry monitoring was discontinued. His level of alertness returned to normal. Psychiatry was consulted and recommended holding all psychiatric medications and continuing the 1:1 monitoring until an inpatient bed became available. He was subsequently discharged to [facility] the following day for a potentially lethal suicide attempt. Allergies: Coded Allergies: cyclobenzaprine (TREMORS 08/07/17) bupropion (Mild, Increase in afshan, reported on a previous admission 08/07/17) Disposition Summary Disposition Principal Diagnosis: Suicide attempt Drug overdose/toxic ingestion Polysubstance abuse Bipolar disorder Additional Diagnosis: History of alcohol dependence and withdrawal seizures Depression and anxiety History of multiple suicide attempts via medication overdose Discharge Disposition: other general hospital Discharge Instructions General Discharge Information Code Status: Full Code Patient's Diet: Regular diet Patient's Activity: As tolerated Follow-Up Instructions/Appts: Follow up with your psychiatrist, recommended therapy, and primary care physician. Medications at Discharge Discharge Medications: Stop taking the following medications: Olanzapine (Olanzapine) 20 MG TABLET ORAL Every night Qty = 14 Divalproex Sodium (Divalproex Sodium) 500 MG TABLET.DR ORAL TWICE DAILY Qty = 60 Ibuprofen (Ibuprofen) 600 MG TABLET ORAL EVERY SIX HOURS NEEDED as needed for PAIN SCALE 4-6 (MODERATE) Qty = 90 Fluoxetine HCl (Fluoxetine HCl) 20 MG CAPSULE ORAL DAILY Qty = 90 Trazodone HCl (Trazodone HCl) 100 MG TABLET ORAL AT BEDTIME Qty = 30 Chlorpromazine HCl (Chlorpromazine HCl) 100 MG TABLET ORAL EVERY 4 HOURS NEEDED as needed for anxiety, agitation, or SI Qty = 60 Melatonin (Melatonin) 3 MG TABLET ORAL AT BEDTIME Qty = 90 Nicotine Polacrilex (Nicotine Lozenge) 4 MG LOZNG.MINI ORAL EVERY 2 HOURS NEEDED as needed for nicotine cravings Qty = 90 Copies To: Mary PRIETO,Niko Mckeon Attending MD Review Statement Documenting Attending: Sravan Sesay MD
--- NOTE | 2017-12-01 13:25 | PN- Psychiatry ---
Assessment/Plan Impression: F/U med note: Martínez is a 37 y/o M with a hx of bipolar disorder and polysubstance dep who has multiple lethal OD attempts. I followed up with him today and he reports he is hopeless and discouraged that he relapsed again after having just been in rehab. He apparently got a paycheck "and got the thoughts again." He is aware of his pending admission to [facility]. He reports no intent to hurt himself in the hospital. Denies hallucinations and paranoia and recent afshan. Psychoeducation given regarding hope and coming to the hospital when he is in need. MSE: Pt is in bed in [facility] with sitter. He is sleeping but arousable to voice. He is pleasant on exam but obviously depressed and distraught. Psychomotor slowing. His speech is clear with normal rate and rhythm. His mood is poor and his affect is depressed. He denies AVH. He denies thoughts to hurt himself while here in the hospital. He endorses hopelessness. His insight is fair and judgment concerning needing admission is good. A 37 y/o M with a hx of bipolar d/o and heavy substance use d/o who has multiple suicide attempts in the past with recent lethal suicide attempt (200 pills) who is medically cleared for admission to inpatient psychiatry. P -Admit to [facility] -Psychiatry will restart medications -Keep sitter until pt leaves floor Suggestion: see impression Subjective Subjective: see impression Objective Last 24 Hrs of Vital Signs/I&O Vital Signs Date Time Temp Pulse Resp B/P B/P Pulse O2 O2 Flow FiO2 Mean Ox Delivery Rate 12/01 0652 98.3 70 20 130/86 94 Room Air 11/30 2223 97.6 71 18 134/82 93 Room Air / 2200 98.2 78 18 136/78 05/ 1600 98.7 74 16 138/80 05/06 1456 98.7 74 16 138/80 96 Room Air Intake & Output 12/01 1600 12/01 0800 05/ 0000 Intake Total 660 Output Total Balance 660 Intake, Oral 660 Patient 254 lb Weight
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
[2017-12-01] MEDS ORDERED: BUSPIRONE HCL7.5 M1 PO (20:27)
[2017-12-01] MEDS ORDERED: CHLORPROMAZINE100 M2 PO (20:31)
[2017-12-01] MEDS ORDERED: PROZAC40 M1 PO (20:32)
[2017-12-01] MEDS ORDERED: TRAZODONE HCL100 M1 PO (20:33)
[2017-12-01] MEDS ORDERED: MELATONIN3 M4 PO (20:34)
[2017-12-01] MEDS ORDERED: DEPAKOTE ER500 M1 PO (20:38)
== END 2017-12-01 17:42 | disposition other institution (70) | DRG 817 ==
LOC: ERH 12:32 → 1NO 11-29 12:13 → ERHI 11-29 12:13 → ENRESERV 11-29 13:23 → ENTRNSPT 11-29 14:43 → EDTRNSPTSTS 11-29 15:04 → 1NO 11-29 15:22 → CMPTRNSPT 11-29 15:28 → 1NO 12-01 08:22 → ENPENDDIS 12-01 17:05 → ENTRNSPT 12-01 17:17 → EDTRNSPT 12-01 17:18 → CMPTRNSPT 12-01 17:32 → 1NO 12-01 17:42
PROVIDERS: Dermatology; Emergency Medicine; Preventive Medicine Public Health & General Preventive Medicine
DX: T43.592A Poisoning by other antipsychotics and neuroleptics, intentional self-harm, initial encounter (principal); R82.6 Abnormal urine levels of substances chiefly nonmedicinal as to source; Y92.009 Unspecified place in unspecified non-institutional (private) residence as the place of occurrence of the external cause; F14.10 Cocaine abuse, uncomplicated; F10.10 Alcohol abuse, uncomplicated; Y90.6 Blood alcohol level of 120-199 mg/100 ml; F31.9 Bipolar disorder, unspecified; F41.9 Anxiety disorder, unspecified
CPT/HCPCS: 1NP; 36592; 80307; 82436; 87086; 93005; 93010; G0480; J1650; J3490

== ENCOUNTER 2017-12-01 15:03 | Inpatient (IN) | payer OTHER ==
[~2017-12-01] VITALS: Ht 188 cm; Wt 114.9 kg
[2017-12-01 17:46] VITALS: BP 141/76
[2017-12-01 20:07] VITALS: BP 113/73
[2017-12-01] MEDS ORDERED: BUSPIRONE HCL7.5 M1 PO (20:27)
[2017-12-01] MEDS ORDERED: CHLORPROMAZINE100 M2 PO (20:31)
[2017-12-01] MEDS ORDERED: PROZAC40 M1 PO (20:32)
[2017-12-01] MEDS ORDERED: TRAZODONE HCL100 M1 PO (20:33)
[2017-12-01] MEDS ORDERED: MELATONIN3 M4 PO (20:34)
[2017-12-01] MEDS ORDERED: DEPAKOTE ER500 M1 PO (20:38)
[2017-12-02 07:48] VITALS: BP 134/76
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
--- NOTE | 2017-12-02 12:06 | CPS PROVIDER INIT ASMT PSYCH ---
Psychiatric Admission Past Psychiatric History - Include inpatient and outpatient treatment Allergies: Coded Allergies: cyclobenzaprine (TREMORS 08/07/17) bupropion (Mild, Increase in afshan, reported on a previous admission 08/07/17) - Include any medical condition(s) that may - impact the patient's recovery/remission Past History Medical History Neurological: delerium tremens, restless leg syndrome, ETOH withdrawal seizures EENT: NONE Cardiovascular: hypertension, hyperlipidemia Respiratory: NONE Gastrointestinal: NONE Hepatic: NONE Renal: NONE Musculoskeletal: Left knee meniscal tear Psychiatric: alcohol dependence, anxiety, bipolar disease, depression, insomnia, substance abuse, Suicidal ideation, overdose suicide attempt X 15 Endocrine: NONE Blood Disorders: NONE Cancer(s): NONE 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 - #1 Recognizing dangerous situations. - #2 Coping Skills. - #3 Basic information about quitting. Alcohol Screening - ETOH screen POS if BAL >=80 or Audit-C>= M4/F3 - If ETOH counseling indicated - the following topics are required. - #1 Express concern about the patient's - drinking at unhealthy levels, include informing - of national norms for moderate drinking: - men <= 14 drinks/week, max 4 drinks/occasion - women <= 7 drinks/week, max 3 drinks/occasion - #2 Providing feedback, including linking alcohol to - negative physical effects (liver injury, hypertension) - negative emotional effects (relationship problems and - depression) - negative occupational consequences (reduced work - performance) - #3 Advising the patient to abstain from alcohol or - to drink below national norms for moderate drinking - (as listed above). Metabolic Screening - Screen if on a Neuroleptic Medication - Metabolic screening should include: - Blood Pressure, BMI, Glucose or Hgb A1c, & a - Lipid profile from within the past 365 days. Exam and Plan Impression/Plan - Include all active medical diagnosis that require tx - Initial Tx Plan for Active Psych & Medical Conditions - Factors that would help patient function - in a less restrictive setting.
[2017-12-02 12:27] VITALS: BP 132/78
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
--- NOTE | 2017-12-02 16:03 | CPS PROVIDER INIT ASMT PSYCH ---
Psychiatric Admission Deicer Repairer's Note Reviewed: Yes Patient Seen and Examined: Yes (Seen with medical student.) Identifying Information: 37 yo DWM with bipolar d/o and polysubstance use disorder, admitted on 12/15/17 on a PEC. Patient known to me from his prior treatment at and from my psychiatry consult on him this past weekend. Chief Complaint: "After using crack and alcohol, I became suicidal, took a substantial overdose of my medications." Reaction to Hospitalization: "I feel fine." History of Present Illness Onset of Illness: Chronic. Left [employer]. after 3 months, 1 month early. Was paid on , 11/27/17, and relapsed with crack and alcohol, then took overdose. Circumstances Leading to Admission: Serious overdose in the context of relapse. Problem(s) Justifying Need for Admission: Serious overdose. Other HPI: Feels good about being alive. Reports he had been clean and was doing really well. After he was paid last , his thoughts were out of control, going 100 mph, and he was craving. States he should have called someone (from [facility]) when he was having those thoughts. Reports that usually after he uses crack or alcohol, he feels hopeless. Stressors include: not being able to see his kids brother's girlfriend hanged herself 5 months ago in patient's parents' house. Patient believes he called 911 after taking the OD. Sleep: good. Appetite: good. Energy: fairly good. Case and treatment plan discussed in team meeting. Staff reports that the patient had prolonged QT. Patient reported that he needs "a better plan." Past Psychiatric History Past Diagnosis(es)- if any: Bipolar d/o. Substance use d/o. Past Precipitating Factors- if any: Suicide attempts. Substance use. - Include inpatient and outpatient treatment Treatment History: Not in outpatient tx. Was planning to start at [facility]. Reports 46 hospitalizations, including to , [facility], [facility], [facility], [facility] and [facility]. History of Suicide Attempts or Gestures This was 19th attempt. Substance Abuse History: Tobacco at 1 ppd. Alcohol: was clean for >4 months until 11/27 when he had 3 tall beers. Crack: was clean >4 months until 11/27. MJ: 6 hits on 11/27. Allergies: Coded Allergies: cyclobenzaprine (TREMORS 08/07/17) bupropion (Mild, Increase in afshan, reported on a previous admission 08/07/17) Home Med List: Prozac 80 mg qAM Dpeakote 1000 mg bid but causes tremor Zyprexa 20 mg qhs Melatonin mg qhs Thorazine 100 mg 4x/day prn Trazodone 100 mg qhs - Include any medical condition(s) that may - impact the patient's recovery/remission Past Medical History: S/p overdose. Umbilical hernia repair. 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 Substance Use: Alcohol: "everybody." Suicides: None. Social History Living Situation: Has apartment in [place]. Significant Relationships (family/friends): Parents are in [place]. B in [place]. B in [place]. Sister in [facility]. . 4 children. Education: HS graduate. Vocation/Occupation: [employer]. Legal: 7-8 arrests for possession of narcotics, violation of restraining order. Healthly Behaviors Screening Tobacco Screening Tobacco Use from ED Docu: Current Daily Use Daily Tobacco Use Amount/Type: => 5 Cigarettes daily - If tobacco counseling indicated - the following topics are required. - #1 Recognizing dangerous situations. - #2 Coping Skills. - #3 Basic information about quitting. Status of Tobacco Cessation Counseling: #1, #2 AND #3 Completed Cessation Med Status Nicotine Gum Ordered Alcohol Screening - ETOH screen POS if BAL >=80 or Audit-C>= M4/F3 Audit-C Score from Diag Assess: 12 (See social work job titles admit note.) Blood Alcohol Level: Lab Serum Alcohol 130.0 MG/DL 11/28/17 1248 Alcohol Use Screening Results: Pos per Audit C &/or BAL - If ETOH counseling indicated - the following topics are required. - #1 Express concern about the patient's - drinking at unhealthy levels, include informing - of national norms for moderate drinking: - men <= 14 drinks/week, max 4 drinks/occasion - women <= 7 drinks/week, max 3 drinks/occasion - #2 Providing feedback, including linking alcohol to - negative physical effects (liver injury, hypertension) - negative emotional effects (relationship problems and - depression) - negative occupational consequences (reduced work - performance) - #3 Advising the patient to abstain from alcohol or - to drink below national norms for moderate drinking - (as listed above). Status of ETOH Use Counseling: #1, #2 AND #3 Completed. Metabolic Screening - Screen if on a Neuroleptic Medication - Metabolic screening should include: - Blood Pressure, BMI, Glucose or Hgb A1c, & a - Lipid profile from within the past 365 days. Metabolic Screening () Not Applicable, patient not on a neuroleptic. OR () Patient on a neuroleptic(s) . Enter below results for Hemoglobin A1C, and lipid panel if obtained during the last 365 days. BMI: 32.000 Blood Pressure: 132/78 Laboratory Results From [facility] (If applicable): [x] Lab Cholesterol 203 MG/DL H 06/20/17 0636 Cholesterol/HDL Ratio 6 % H 06/20/17 0636 HDL Cholesterol 31 mg/dL L 06/20/17 0636 Hemoglobin A1c 5.0 % 06/20/17 0636 LDL Cholesterol, Calc 114 mg/dL 06/20/17 0636 Triglycerides 292 mg/dL H 06/20/17 0636 Exam and Plan Mental Status Examination Ambulation Status: Gait is WNL. Appearance: Dressed in blue paper scrubs. Unshaven. Attitude towards examiner: Calm, polite and cooperative. Psychomotor activity: There is no psychomotor agitation/retardation. Behavior: Unremarkable. Quality of speech: Loud, normal in rate and tone. Affect: Animated/euthymic. Mood: "I feel okay." Sad 0/10. Anxiety ~4/10. Denies feeling hopeless, helpless, worthless or guilty. Suicidal Ideation: Denies active and passive SI. Gives a safety promise for here. Homicidal Ideation: Denies HI. Hallucinations: Denies AH and VH. Paranoid/Delusional Material: Denies PI and magical canales. Difficulties with thought organization: Thinking is clear, logical and goal-directed. Insight: Limited, improving. Judgment: Was poor, improving. Orientation: Ox3. Cognition: Grossly intact. Memory Function: Grossly intact. Estimate of intellectual functioning: Average. Assets/Strengths Patient Identified Assets/Strengths: "Music." Impression/Plan Impression and Plan: The patient is here after a serious overdose in the context of substance relapse. - Include all active medical diagnosis that require tx DSM 5 Diagnosis(es): Bipolar d/o, depressed. Crack cocaine use d/o. Alcohol use d/o. S/o overdose. - Initial Tx Plan for Active Psych & Medical Conditions Treatment Plan: The patient will be monitored on the unit for safety and mood disorder. Additional information is needed from collaterals. Home medications have been restarted, except Depakote dose has been reduced because of complaint of tremor. Anticipate once clinically stable, that the patient will be discharged to a rehab or IOP. - Factors that would help patient function - in a less restrictive setting. Factors: Not suicidal.
[2017-12-02 16:57] VITALS: BP 118/80
--- NOTE | 2017-12-02 17:04 | PN- Att Addend ---
Attending Addendum Attending Brief Note S: Called to write brief medical admit note for patient transferred from Medical Service to [facility]/Psychiatry. He had been admitted to the medical service for intentional overdose (Zyprexa, Trazodone, Buspar, & Thorazine). He has a h/o polysubstance abuse, EtOH abuse, bipolar disorder, anxiety/depression and multiple suicide attempts. At the time of my exam on [facility] he was alert and cooperative and expressed no significant complaints. O: VS: Vital Signs Date Time Temp Pulse Resp B/P B/P Pulse O2 O2 Flow FiO2 Mean Ox Delivery Rate 12/02 1227 98 132/78 12/02 0748 97.7 97 134/76 12/01 2006 98.0 92 113/73 12/01 1746 98.3 98 141/76 Current Medications Sig/Minerva Start time Last Medication Dose Route Stop Time Status Admin Acetaminophen 650 MG Q6P PRN 12/02 1215 AC PO Al Hydroxide/Mg 30 ML Q4-6 PRN PRN 12/02 1215 AC Hydroxide PO Benztropine Mesylate 1 MG Q6P PRN 12/02 1215 DC PO Benztropine Mesylate 1 MG Q6P PRN 12/02 1215 AC IM Chlorpromazine 100 MG Q6P PRN 12/02 1230 AC PO Divalproex Sodium 750 MG BID 12/02 1217 AC 12/02 PO 1328 Fluoxetine HCl 80 MG DAILY 12/02 1216 AC 12/02 PO 1329 Haloperidol 5 MG Q6P PRN 12/02 1215 DC PO Haloperidol 5 MG Q6P PRN 12/02 1215 AC IM Lorazepam 2 MG Q6P PRN 12/02 1215 AC IM Magnesium Hydroxide 30 ML AT BEDTIME NEED.. 12/02 1230 AC PO Melatonin 9 MG AT BEDTIME 12/02 2100 AC PO Melatonin 5 MG AT BEDTIME 12/01 2100 DC 12/01 PO 2125 Multivitamins 1 TAB DAILY 12/02 1215 AC 12/02 PO 1329 Nicotine 4 MG Q2H PRN 12/01 2245 AC 12/02 PO 1243 Olanzapine 20 MG AT BEDTIME 12/02 2100 AC PO Trazodone HCl 100 MG AT BEDTIME 12/02 2100 AC PO Trazodone HCl 50 MG AT BEDTIME 12/01 2100 DC 12/01 PO 2125 Physical Exam: HEENT: eyes- PERRLA, EOMI afia- moist mucosa, no lesions Neck: no adenopathy/thyromegaly Chest: clear Cor: RRR nl S1, S2 w/o murm Abd: BS+, soft, NT, - HSM Ext: no edema, pulses 2+ Neuro: alert & oriented x 3, affect appropriate, non-focal neuro exam, CN 2-12 intact Labs/Tests: Laboratory Tests 12/02/17 0625: Glucose 99, Total Bilirubin 0.6, Direct Bilirubin 0.3, AST 18, ALT 43, Alkaline Phosphatase 58, Total Protein 6.1 L, Albumin 3.6, Amylase 43 Impression/Plan: #Bipolar/Depression/s/p Suicide Attempt/Overdose- transferred to [facility] from Medical service. Clinically stable at present, however concern regarding safety with above history. Plan: Admit to [facility] for monitoring and evaluation of mood disorder/safety. Meds as per psychiatry. #History of Polysubstance Abuse- as noted in psych note, s/p recent relapse. Detoxed on medical service and patient doing well now. Plan: Will need further Rx as OP once discharged from [facility].
[2017-12-02 20:06] VITALS: BP 138/73
[2017-12-03 07:36] VITALS: BP 132/71
[2017-12-03 12:02] VITALS: BP 138/91
--- NOTE | 2017-12-03 14:29 | CP SOUTH PROGRESS NOTE PSYCH ---
Psych (Inpt) Progress Note Progress Note Include the following elements, when applicable: Involvement in the active treatment of the patient with behavioral observations of the patient and the patient's response to the treatment. Review of the ongoing treatment process in the context of the treatment plan. Indication of how multi-disciplinary staff members are carrying out the treatment plan. Plans for future interventions and recommendations for revision of the treatment plan. Liaison with other physicians/providers. Progress Note: Case and treatment plan discussed in team meeting. Staff reports that the patient is denying suicidal ideation. Attending all groups. Overall had a good day yesterday. Plans to get settled with his medications. Patient seen at 1:49 PM. Reports he talked to his sponsor and to his systems integration advisor yesterday. Found AA meeting last evening was good. Affect is calm and euthymic. Speech is loud. Patient states he really did not think he was going to use. Reports he has difficulty when he has money in hand. I suggested he consider getting a rep payee and he responded "maybe I should." Patient reports that he had been on BuSpar 7.5 mg twice daily for tremor but he did not notice any benefit from it, nor did he notice benefit from Cogentin. We will not add either of these medications at this time. Mood is good. Rates sad mood and anxiety both 0/10. Denies feeling hopeless, helpless, worthless or guilty. Denies active and passive suicidal ideation. Denies homicidal ideation. Denies auditory and visual hallucinations and paranoid ideation. Describes sleep, appetite and energy as good. Tolerating medications well, without complaint. IMPRESSION: Slow progress. Continue present treatment plan. Anticipate discharge on Friday.
--- NOTE | 2017-12-03 15:05 | SOCIAL WORKER PROG NOTE PSYCH ---
See Addendum Social Work Progress Note Progress Note Martínez appears to be in a good mood today. Reports that he spoke with his sponsor last night and told him why he is here and what he needs going forward. He asked him if he could hold onto his money in the future and help him manage that. His sponsor seemed willing. I will also reach out to his sponsor (Hilton) to schedule a meeting. Martínez talked about how he also really needs to think about moving in the Fall. That's when his lease is up. He is hoping to move closer to [place]. He talked about how his neighbor is selling him the drugs and it makes it too easy for him to access. Appears future oriented today, talking about goals of having a car and plans to move. Discussed outpatient at [facility] vs. [facility]. He would like me to talk to [facility] to see if they are still willing to work with him, if not he is open to [facility]. Called [facility] and left a message for one of the clinicians. Called and left a message for Martínez's sponsor [employer] [phone].
[2017-12-03 16:08] VITALS: BP 142/94
[2017-12-03 19:31] VITALS: BP 141/79
[2017-12-04 08:27] VITALS: BP 140/78
--- NOTE | 2017-12-04 10:42 | SOCIAL WORKER PROG NOTE PSYCH ---
Social Work Progress Note Progress Note Spoke with Michele Maxwell at [facility]. Updated him on his current hospitalization and the details of what led to that. He feels that Martínez should pursue a higher level of care such as an IOP. I told him that Martínez was expecting that response and that was fine. Let him know he would be referred to our IOP. Met with aMrtínez and discussed the above information. He was prepared for that result. Told him I would be looking to set up IOP intake for Friday afternoon. Martínez appears to be stable as far as his mood and thoughts right now. He is trying not to dwell on his relapse and he is focused on moving forward with things. He said he is doing alot of AA step work right now. He is viewing this as a slip for himself. He talked about all the things he had put in place and was working on when he left [employer] He plans to resume those activities. Continues to talk about how not having someone help him manage his money was part of what led to relapse. I told him I reached out to his sponsor and will do so again today. He talked about the need to be healthy and sober to be in his kids lives. He has maintained contact with his kids in [place] and in [place]. He would like to eventually save enough money to see his kids in [place]. Scheduled an IOP intake for Friday at 1:15pm.
--- NOTE | 2017-12-04 11:50 | SOCIAL WORKER PROG NOTE PSYCH ---
Social Work Progress Note Progress Note Met with Martínez
[2017-12-04 12:12] VITALS: BP 141/89
--- NOTE | 2017-12-04 13:41 | CP SOUTH PROGRESS NOTE PSYCH ---
Psych (Inpt) Progress Note Progress Note Include the following elements, when applicable: Involvement in the active treatment of the patient with behavioral observations of the patient and the patient's response to the treatment. Review of the ongoing treatment process in the context of the treatment plan. Indication of how multi-disciplinary staff members are carrying out the treatment plan. Plans for future interventions and recommendations for revision of the treatment plan. Liaison with other physicians/providers. Progress Note: Case and treatment plan discussed in team meeting. Staff reports that the patient is denying suicidal ideation. Appearing well. Future-focused. Thinking about moving to [place]. Apparently patient's drug dealer lives next door to his current residence. [facility] will not accept him into their outpatient department as they view the patient as too acute. Patient seen at 10:09 AM. He was on his way to group and met with me in office. Patient has what appears to be a skin infection on his right upper eyelid. Affect is calm and euthymic. Reports mood is good. Rates sad mood and anxiety both 0/10. Denies feeling hopeless, helpless, worthless or guilty. Denies active and passive suicidal ideation. Denies homicidal ideation. Denies auditory and visual hallucinations and paranoid ideation. Describes sleep, appetite and energy as good. Tolerating medications well, without complaint. Denies cravings. IMPRESSION: Slow progress. Continue present treatment plan. Anticipate discharge on Friday to [facility]. We will ask hospitalist to see the patient about right upper eyelid.
--- NOTE | 2017-12-04 13:45 | PN- Att Addend ---
Attending Addendum Attending Brief Note S: Called to evaluate redness and swelling of upper eyelid, right eye. The patient has noted x 1 day. Mild pain. No blurring of vision, no fever. O: VS: Vital Signs Date Time Temp Pulse Resp B/P B/P Pulse O2 O2 Flow FiO2 Mean Ox Delivery Rate 12/04 1212 98 141/89 12/04 0827 97.3 93 140/78 12/03 1931 99.0 104 141/79 12/03 1608 104 142/94 Physical Exam: HEENT: eyes- + 0.5 cm area of erythema/induration upper lid OD with mild tenderness. EOMI w/o pain, no scleral injection, no pre-auricular adenopathy. Impression/Plan: #Furuncle Upper Lid- OD- as above. Plan: Agree with warm compresses qid as needed. Apply Bactroban ointment bid x 5 days. Keflex 500 mg bid x 3 days. If worsening will re-evaluate.
--- NOTE | 2017-12-04 14:41 | SOCIAL WORKER PROG NOTE PSYCH ---
Social Work Progress Note Progress Note MAYO SÁNCHEZ [id number] 1980 MAYO SÁNCHEZ [id number] Pended Authorization # Client Authorization # Type of Request [id number] CONCURRENT Date of Admission/ Start of Services Requested From Submission Date 12/01/2017 12/04/2017 12/04/2017
[2017-12-04 17:36] VITALS: BP 127/59
[2017-12-04 19:48] VITALS: BP 139/76
[2017-12-05 08:07] VITALS: BP 143/74
[2017-12-05 12:07] VITALS: BP 137/77
--- NOTE | 2017-12-05 12:33 | SOCIAL WORKER PROG NOTE PSYCH ---
Social Work Progress Note Progress Note Called [facility] to set up VNS services to start with Martínez on Friday afternoon. Asked if they would come supply coordinator before 8am due to Martínez going to work during the morning. Francisca (help desk coordinator) said they would definetely make that happen. Saw Martínez briefly, explained that he has been referred to [facility]. He seemed pleased with that plan. Reports feeling like things are going slow today. Discussed d/c for Friday.
--- NOTE | 2017-12-05 12:57 | PN- Att Addend ---
Attending Addendum Attending Brief Note S: Follow-up of eyelid infection- OD. Patient has been on Keflex and using Bactroban. States he has not been doing warm soaks. Slightly improved per nursing. O: Eyes- + area of erythema and swelling upper lid OD - still no head. Swelling decreased since last exam yesterday. No spread. A: #Furuncle Upper Lid- OD- slightly improved. Patient has not been using warm compresses. Plan: Advised patient and nursing to resume warm compressed qid and follow. May need drainage. Continue Keflex and Bactroban Ointment.
--- NOTE | 2017-12-05 15:43 | CP SOUTH PROGRESS NOTE PSYCH ---
Psych (Inpt) Progress Note Progress Note Include the following elements, when applicable: Involvement in the active treatment of the patient with behavioral observations of the patient and the patient's response to the treatment. Review of the ongoing treatment process in the context of the treatment plan. Indication of how multi-disciplinary staff members are carrying out the treatment plan. Plans for future interventions and recommendations for revision of the treatment plan. Liaison with other physicians/providers. Progress Note: Case and treatment plan discussed in team meeting. Staff reports that the patient is loud and pleasant. Goal-directed. Appearing well. Has IOP intake on Friday at 1:15 pm. Valproic Acid 51.6 ug/mL 12/05/17 0605 Patient seen with medical student. States "I'm good." Has no complaints. Affect is calm and euthymic. States he is back on track and doing 12-step work. Feels fine on current Depakote dose and at current blood level. Hand tremor is mild. We will continue Depakote at current dose. Mood is good. Rates sad mood and anxiety both 0/10. Denies feeling hopeless, helpless, worthless or guilty. Denies active and passive suicidal ideation. Denies homicidal ideation. Denies auditory and visual hallucinations and paranoid ideation. Describes sleep, appetite and energy as good. Tolerating medications well, without complaint. IMPRESSION: Condition improving. Anticipate discharge on Friday to IOP intake then home. Patient has agreed to a visiting nurse.
[2017-12-05 15:56] VITALS: BP 144/79
[2017-12-05 20:04] VITALS: BP 125/82
[2017-12-06 08:14] VITALS: BP 143/90
--- NOTE | 2017-12-06 08:38 | CP SOUTH PROGRESS NOTE PSYCH ---
Psych (Inpt) Progress Note Progress Note I did. Alverto Fleming MD's notes which indicated that the patient is slated for discharge Friday with an IOP intake on Friday at 1:15 pm. Valproic Acid 51.6 ug/mL 12/05/17 06 Mental status examination: The patient was alert, and oriented to time, place, and person. He was calm and cooperative and friendly. He had no complaints. He reported that his mood is "alright." He denied feeling severely depressed and severely anxious. He showed good range of affect. He reported that his tremors improved significantly with lower dose of Depakote. He denied wishing or thinking of suicide. He denied violent thoughts or thoughts of homicide. He reports that his anxiety is manageable. He denied hallucinations and did not seem to be hallucinating. There were no delusions during the interview and there was no thought disorder. IMPRESSION: The patient is a 37-year-old single white male who is known to the inpatient psychiatric unit staff from the previous numerous admissions. Condition improving. Treatment Plan Update: Continue same medications Anticipate discharge on Friday to IOP intake then home. Patient has agreed to a visiting nurse.
[2017-12-06 11:52] VITALS: BP 138/79
[2017-12-06 16:05] VITALS: BP 130/75
[2017-12-06 19:48] VITALS: BP 142/73
[2017-12-07 08:34] VITALS: BP 147/70
--- NOTE | 2017-12-07 13:42 | CP SOUTH PROGRESS NOTE PSYCH ---
Psych (Inpt) Progress Note Progress Note Vital Signs Date Time Temp Pulse Resp B/P B/P Pulse O2 O2 Flow FiO2 12/07 0834 96.9 97 147/70 12/06 1948 98.3 95 142/73 12/06 1605 104 130/75 Mental status examination: The patient was alert and oriented to time, place, and person. He was calm, cooperative and friendly. He had no physical complaints. He reported that his mood remains "good." He denied feeling depressed or too anxious. He showed good range of affect. He denied wishing or thinking of suicide. He denied violent thoughts or thoughts of homicide. He reports that his anxiety is manageable. He denied hallucinations and did not seem to be hallucinating. There were no delusions during the interview and there was no thought disorder. Assessment: Martínez is a 37-year-old single White male who was admitted to the inpatient psychiatric unit at [facility] on 12/01/2017 for "After using crack and alcohol, I became suicidal, took a substantial overdose of my medications." The patient seems status Martínez significant improvement so far and he is looking forward to discharge tomorrow to do the intensive outpatient program, lives at home, and work. Treatment Plan Update: Continue same medications Anticipate discharge on Friday to IOP intake then home.
[2017-12-07 15:48] VITALS: BP 132/86
[2017-12-07 19:33] VITALS: BP 145/81
[2017-12-08 08:42] VITALS: BP 143/66
[2017-12-08] MEDS ORDERED: DIVALPROEX SOD250 M2 PO (10:47)
[2017-12-08] MEDS ORDERED: ZYPREXA20 M1 PO (10:47)
[2017-12-08] MEDS ORDERED: ONE DAILY MULT1 EAC2 PO (10:47)
[2017-12-08] MEDS ORDERED: PROZAC40 M1 PO (10:47)
[2017-12-08] MEDS ORDERED: MELATONIN3 M4 PO (10:47)
[2017-12-08] MEDS ORDERED: NICORELIEF4 MG PO (10:47)
[2017-12-08] MEDS ORDERED: TRAZODONE HCL100 M1 PO (10:47)
--- NOTE | 2017-12-08 10:54 | Patient Discharge Instructions ---
Psych Discharge Inst General Discharge Information Reason for Admission: "After using crack and alcohol, I became suicidal, took a substantial overdose of my medications." Psy Discharge Primary Diag+ Bipolar d/o, depressed Psy Discharge Secondary Diag+ Crack cocaine use d/o Alcohol use disorder Cannabis use disorder Status post overdose Infection R upper eyelid Summary Tests/Major Procedures Lab ALT 43 U/L 12/02/17 0625 AST 18 U/L 12/02/17 0625 Amylase 43 U/L 12/02/17 0625 BUN 17 mg/dL 12/01/17 0633 Carbon Dioxide 23 mmol/L 12/01/17 0633 Chloride 106 mmol/L 12/01/17 0633 Cholesterol 203 MG/DL H 06/20/17 0636 Cholesterol/HDL Ratio 6 % H 06/20/17 0636 Creatinine 1.1 mg/dL 12/01/17 0633 Estimated GFR > 60 ml/min 12/01/17 0633 Glucose 99 mg/dL 12/02/17 0625 HDL Cholesterol 31 mg/dL L 06/20/17 0636 Hemoglobin A1c 5.0 % 06/20/17 0636 LDL Cholesterol, Calc 114 mg/dL 06/20/17 0636 Potassium 3.7 mmol/L 12/01/17 0633 Sodium 141 mmol/L 12/01/17 0633 Total Protein 6.1 g/dL L 12/02/17 0625 Triglycerides 292 mg/dL H 06/20/17 0636 INR 1.20 H 11/28/17 1248 PT 13.1 SEC H 11/28/17 1248 Gran % 35.3 % L 12/01/17 0633 Hct 46.0 % 12/01/17 0633 Hgb 15.7 G/DL 12/01/17 0633 MCH 31.1 PG H 12/01/17 0633 MPV 6.9 FL L 12/01/17 0633 Monocytes % 10.3 % H 12/01/17 0633 Plt Count 227 /CUMM 12/01/17 0633 WBC 3.8 /CUMM L 12/01/17 0633 Serum Alcohol 130.0 MG/DL 11/28/17 1248 Urine Cannabis Screen > 80.00 NG/ML H 11/28/17 1300 Urine Cocaine Screen > 1000 NG/ML H 11/28/17 1300 Valproic Acid 51.6 ug/mL 12/05/17 0605 Studies Pending at DC: None. Patient Instructions Contact Information Your Psychiatrist on [facility] was Alverto Fleming MD * If you are experiencing an emergency related to this hospitalization, please call [phone] to contact the treating psychiatrist or the psychiatrist-on- call. * To Request a copy of your medical records, please contact the Medical Records Department at [phone]. * To request results of studies pending at the time of discharge, please call [phone]. * Continue your Medications until directed to stop by your Healthcare provider. General Medication Information Please continue to take your new medications and your continued home medications , unless otherwise indicated on your discharge medication list, or unless directed by your MD or DECAL APPLIER to stop them. Special Instructions Diet Regular Activity Normal Other Inst/Recommendations Stay away from drugs and alcohol. See PCP about labs. - Tobacco Use Treatment Offered Post DC Medications Offered: Script Given-See Med List Post DC Tobacco Treatment Plan: [place] [facility] Tx [facility] Program Appt Date: 12/10/17 Program Appt Time: 1600 - EtOH/Drug Use D/O Treatment Offered Post DC Medications Offered: Med Not Indicated for D/O Post DC EtOH/SubAbuse [place] Plan: [place] SubAbuse/Dual IOP Program Appt Date: 12/08/17 Program Appt Time: 1315 Metabolic Screening () Not Applicable, patient not on a neuroleptic. OR () Patient on a neuroleptic(s) . Enter below results for Hemoglobin A1C, and lipid panel if obtained during the last 365 days. BMI: 32.000 Blood Pressure: 143/66 Laboratory Results From [facility] (If applicable): [x] Lab Cholesterol 203 MG/DL H 06/20/17 0636 Cholesterol/HDL Ratio 6 % H 06/20/17 0636 HDL Cholesterol 31 mg/dL L 06/20/17 0636 Hemoglobin A1c 5.0 % 06/20/17 0636 LDL Cholesterol, Calc 114 mg/dL 06/20/17 0636 Triglycerides 292 mg/dL H 06/20/17 0636 Advance Directives Does the Patient have Medical Advance Directives No/Refused further info Does Pt have Psychiatric Advance Directives? No/Refused further info Does Patient have a Designated Surrogate Decision Maker: No Information About Psychiatric Advance Directives Provided? Refused Discharge Plan Post Hospital Treatment Plan: Returning home. IOP 12/08/17 at 1:15 pm. [place] visiting nurse daily.
--- NOTE | 2017-12-08 11:03 | SOCIAL WORKER PROG NOTE PSYCH ---
Social Work Progress Note Progress Note Reached out to Martínez's sponsor Hilton. Talked about his triggers with money. He said he is willing to help Martínez out with paying bills or money to family. He's willing to help as long as Martínez asks for help and reaches out. He said Martínez will be working with him this week. Told him that he will be going to our IOP and that he most likely will need to be back to attend the 5-8 program. He said he'll make sure Martínez's on time. Seemed vested in helping Martínez try and maintain his sobriety. Met with Martínez. Let him know that I spoke with Hilton. Reiterated the need to ask for help and utilize his resources. Martínez said the weekend was kind of boring, but he is feeling well. Talked to his Mother yesterday, but didn't tell her the truth as to why he is here. He didn't feel it was the time to tell her. Talked about his involvement with his family and how much he can realistically be around them because they drink. He said it is difficult and right now may just need to limit his time there to holidays. Talked about how there is drinking on holidays as well. Martínez will connect with his sponsor tico and go to an AA meeting. IOP intake scheduled for 1:15 today. He will walk home after his intake. Mood appeared stable. No SI/HI.
[2017-12-08 12:23] VITALS: BP 145/79
--- NOTE | 2017-12-08 13:20 | SOCIAL WORKER PROG NOTE PSYCH ---
Social Work Progress Note Faxed Referral(s) 1 Referred To: [facility] Transition of Care Documents sent: Health Summary, W10 Faxed to: IOP Fax #: [phone] Faxed by: Amanda Peoples Date faxed: 12/08/17 Time Faxed: [phone] Faxed Referral(s) 2 Referred To: [facility] Transition of Care Documents sent: Health Summary, W10 Faxed to: [facility] Fax #: [phone] Faxed by: Amanda Peoples Date faxed: 12/08/17 Time Faxed: [phone]
--- NOTE | 2017-12-08 16:16 | CP SOUTH PROGRESS NOTE PSYCH ---
Psych (Inpt) Progress Note Progress Note Include the following elements, when applicable: Involvement in the active treatment of the patient with behavioral observations of the patient and the patient's response to the treatment. Review of the ongoing treatment process in the context of the treatment plan. Indication of how multi-disciplinary staff members are carrying out the treatment plan. Plans for future interventions and recommendations for revision of the treatment plan. Liaison with other physicians/providers. Progress Note: Dr. Lozano's notes reviewed. Case and treatment plan discussed in team meeting. Staff reports that the patient is denying suicidal ideation. Wants to attend evening IOP. Wants his sponsor to hold his money. Received prn's of Thorazine for agitation. Spent some time in bed on Friday. Patient will have [facility] visiting nurse. Patient will go to [facility] at 1:15 PM today. Patient seen at 10:31 AM. He was in group prior to meeting with me in office. Reports doing well. Has no complaints. Affect is calm and euthymic. Mood is good. Rates sad mood and anxiety 0/10. Denies feeling hopeless, helpless, worthless or guilty. Denies active and passive suicidal ideation. Denies homicidal ideation. Denies auditory and visual hallucinations and paranoid ideation. Describes sleep, appetite and energy as good. Tolerating medications well, without complaint. Feels ready and safe for discharge. IMPRESSION: Condition improved. Okay for discharge today to [facility] intake then to home. Patient will have a visiting nurse.
--- NOTE | 2017-12-08 16:25 | DISCHARGE SUMMARY REPORT-PSYCH ---
Visit Information Visit Dates/Diagnosis' Admission Date: 12/01/17 Discharge Date: 12/08/17 Reason for Admission: "After using crack and alcohol, I became suicidal, took a substantial overdose of my medications." Psy Discharge Primary Diag: Bipolar d/o, depressed Psy Discharge Secondary Diag: Crack cocaine use d/o Alcohol use disorder Cannabis use disorder Status post overdose Infection R upper eyelid Hospital Course Significant Lab Findings: Lab ALT 43 U/L 12/02/17 0625 AST 18 U/L 12/02/17 0625 Amylase 43 U/L 12/02/17 0625 BUN 17 mg/dL 12/01/17 0633 Carbon Dioxide 23 mmol/L 12/01/17 0633 Chloride 106 mmol/L 12/01/17 0633 Cholesterol 203 MG/DL H 06/20/17 0636 Cholesterol/HDL Ratio 6 % H 06/20/17 0636 Creatinine 1.1 mg/dL 12/01/17 0633 Estimated GFR > 60 ml/min 12/01/17 0633 Glucose 99 mg/dL 12/02/17 0625 HDL Cholesterol 31 mg/dL L 06/20/17 0636 Hemoglobin A1c 5.0 % 06/20/17 0636 LDL Cholesterol, Calc 114 mg/dL 06/20/17 0636 Potassium 3.7 mmol/L 12/01/17 0633 Sodium 141 mmol/L 12/01/17 0633 Total Protein 6.1 g/dL L 12/02/17 0625 Triglycerides 292 mg/dL H 06/20/17 0636 INR 1.20 H 11/28/17 1248 PT 13.1 SEC H 11/28/17 1248 Gran % 35.3 % L 12/01/17 0633 Hct 46.0 % 12/01/17 0633 Hgb 15.7 G/DL 12/01/17 0633 MCH 31.1 PG H 12/01/17 0633 MPV 6.9 FL L 12/01/17 0633 Monocytes % 10.3 % H 12/01/17 0633 Plt Count 227 /CUMM 12/01/17 0633 WBC 3.8 /CUMM L 12/01/17 0633 Serum Alcohol 130.0 MG/DL 11/28/17 1248 Urine Cannabis Screen > 80.00 NG/ML H 11/28/17 1300 Urine Cocaine Screen > 1000 NG/ML H 11/28/17 1300 Valproic Acid 51.6 ug/mL 12/05/17 0605 SERVICE DATE: 11/28/17124 EXAM TYPE: CAT - CT CERV SPINE WO IV CONTRAST; CT HEAD WO IV CONTRAST EXAMINATION: CT HEAD AND CERVICAL SPINE. CLINICAL INFORMATION: History of ethanol use and overdose. COMPARISON: Cervical spine radiographs 12/03/2016. TECHNIQUE: Heavy [employer] Engine [employer]ic images were obtained. CT acquisition of the head and cervical spine was performed without intravenous administration of contrast. Data was reformatted into multiplanar images at the acquisition workstation. DLP: 1035.9 mGy-cm. FINDINGS: Head: There is no acute intracranial hemorrhage or abnormal extra-axial collection. No intracranial mass effect or midline shift. Lateral and third ventricles are normal. No hydrocephalus. Bergman-white matter differentiation is grossly preserved and there is no evidence of acute territorial infarct. The calvarium and skull base are intact. Mastoid air cells and middle ear cavities are well-aerated. There is moderate to severe disease within the right maxillary sinus and mild disease within sphenoid sinus. The remainder of the paranasal sinuses are well-aerated. Cervical spine: There is scoliosis of the cervical spine that is likely positional with a rightward convex curvature centered at the cervicothoracic junction. Alignment is normal in the sagittal dimension. Vertebral heights are preserved. No acute fracture. No abnormal prevertebral soft tissue swelling. Grossly no evidence of bony canal compromise and no bony neuroforaminal encroachment. Soft tissues of the neck are unremarkable. There is minimal subsegmental atelectasis at the apices of both lungs. Soft tissues of the neck are unremarkable. IMPRESSION: Head: No acute intracranial hemorrhage. Cervical spine: No acute cervical spine fracture. Urine culture 11/28/17 showed no growth after 2 days. EKG 11/29/17 showed sinus rhythm @ 76, borderline T abnormalities, infero-lateral leads, minor changes since previous tracing, borderline EKG, QT 292, QTc 329. Patient was given copy of EKG at discharge (to bring to PCP). Course Complications: None. Consultations: Dr. Lockwood saw the patient for a brief admit note. He saw the patient again for a furuncle R upper eyelid. This was treated with Bactroban and Keflex. Allergies: Coded Allergies: cyclobenzaprine (TREMORS 08/07/17) bupropion (Mild, Increase in afshan, reported on a previous admission 08/07/17) Hospital Course/TX Response: The patient was monitored on the unit for safety and mood disorder. Previous medications were restarted but Depakote dose was reduced because of tremor. Mood and affect have improved. Suicidal ideation has remitted. Progress note from date of discharge, 12/08/17: Dr. Lozano's notes reviewed. Case and treatment plan discussed in team meeting. Staff reports that the patient is denying suicidal ideation. Wants to attend evening IOP. Wants his sponsor to hold his money. Received prn's of Thorazine for agitation. Spent some time in bed on Friday. Patient will have [facility] visiting nurse. Patient will go to [facility] at 1:15 PM today. Patient seen at 10:31 AM. He was in group prior to meeting with me in office. Reports doing well. Has no complaints. Affect is calm and euthymic. Mood is good. Rates sad mood and anxiety 0/10. Denies feeling hopeless, helpless, worthless or guilty. Denies active and passive suicidal ideation. Denies homicidal ideation. Denies auditory and visual hallucinations and paranoid ideation. Describes sleep, appetite and energy as good. Tolerating medications well, without complaint. Feels ready and safe for discharge. IMPRESSION: Condition improved. Okay for discharge today to [facility] intake then to home. Patient will have a visiting nurse. Discharge HBIPS - Tobacco Use Treatment Offered Post DC Medications Offered: Script Given-See Med List Post DC Tobacco Treatment Plan: [place] Tobacco [facility] Program Appt Date: 12/10/17 Program Appt Time: 1600 - EtOH/Drug Use D/O Treatment Offered Post DC Medications Offered: Med Not Indicated for D/O Post DC EtOH/SubAbuse [place] Plan: [place] SubAbuse/Dual IOP Program Appt Date: 12/08/17 Program Appt Time: 1315 Metabolic Screening - Screen if on a Neuroleptic Medication - Metabolic screening should include: - Blood Pressure, BMI, Glucose or Hgb A1c, & a - Lipid profile from within the past 365 days. Metabolic Screening () Not Applicable, patient not on a neuroleptic. OR () Patient on a neuroleptic(s) . Enter below results for Hemoglobin A1C, and lipid panel if obtained during the last 365 days. BMI: 32.000 Blood Pressure: 145/79 Laboratory Results From [place] E[facility] (If applicable): [x] Lab Cholesterol 203 MG/DL H 06/20/17 0636 Cholesterol/HDL Ratio 6 % H 06/20/17 06 HDL Cholesterol 31 mg/dL L 06/20/17 06 Hemoglobin A1c 5.0 % 06/20/17 06 LDL Cholesterol, Calc 114 mg/dL 06/20/17 0636 Triglycerides 292 mg/dL H 06/20/17 06 Discharge Instructions General Discharge Information Multiple Neuroleptics: ([x]) Not Applicable ON ZYPREXA PLUS PRN THORAZINE (NOT STANDING THORAZINE). OR Document below three failed attempts at monotherapy, or a plan to taper to monotherapy, or augmentation of Clozapine. () Discharge Diet Regular Discharge Activity Normal DC Disposition: Returning to home. 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 Prescriptions Stop taking the following medications: Buspirone HCl (Buspirone HCl) 7.5 MG TABLET ORAL TWICE DAILY Divalproex Sodium (Depakote ER) 500 MG TAB.ER.24H ORAL TWICE DAILY Qty = 120 Continue taking these medications: Chlorpromazine HCl (Chlorpromazine HCl) 100 MG TABLET ORAL 4 TIMES A DAY as needed for AGITATION Comments: Last Taken:12/06/17 Time:1244pm Trazodone HCl (Trazodone HCl) 100 MG TABLET 1 Tablet ORAL Every night Qty = 14 Comments: Last Taken:12/07/17 Time:10pm This prescription has been renewed Melatonin (Melatonin) 3 MG TABLET 3 Tablet ORAL Every night Qty = 42 Comments: Last Taken:12/07/17 Time:10pm This prescription has been renewed Start taking the following new medications: Nicotine Polacrilex (Nicorelief) 4 MG GUM 1 Gum ORAL Q2H as needed for SMOKING CESSATION Qty = 100 No Refills Comments: Last Taken:12/08/17 Time:9am Divalproex Sodium (Divalproex Sodium) 250 MG TABLET.DR 3 Tablet ORAL TWICE DAILY Qty = 84 No Refills Comments: Last Taken:12/08/17 Time:9am Multivitamin (One Daily Multivitamin) 1 EACH TABLET 1 Tablet ORAL DAILY Qty = 14 No Refills Comments: Last Taken:12/08/17 Time:9am Olanzapine (Zyprexa) 20 MG TABLET 1 Tablet ORAL AT BEDTIME Qty = 14 No Refills Comments: Last Taken:12/07/17 Time:10pm The following medications have been changed: Old: Fluoxetine HCl (Prozac) 40 MG CAPSULE 80 Milligram ORAL DAILY New: Fluoxetine HCl (Prozac) 40 MG CAPSULE 2 Capsule ORAL DAILY Qty = 28 Comments: Last Taken:12/08/17 Time:9am Other Inst/Recommendations Stay away from drugs and alcohol. See PCP about labs. Studies Pending at Discharge None. Copies To: Intensive Outpt Psychiatry
--- NOTE | 2017-12-10 14:42 | IP INCIDENTAL NOTE PSYCH ---
Incidental Note Notation: Call returned to Lian Lindsay at [facility] [phone]. Patient has not been available to [facility] for admission. They will try again tomorrow.
== END 2017-12-08 13:06 | DRG 753 ==
LOC: CP SOUTH 15:03 → ENRESERV 17:30 → CP SOUTH 17:56
DX: F31.9 Bipolar disorder, unspecified (principal); F14.90 Cocaine use, unspecified, uncomplicated; F15.90 Other stimulant use, unspecified, uncomplicated; F10.10 Alcohol abuse, uncomplicated
CPT/HCPCS: 36415; J0515; J1630

== ENCOUNTER 2017-12-19 22:22 | Inpatient (IN) | payer OTHER ==
[~2017-12-19] VITALS: Ht 188 cm; Wt 111.6 kg
[~2017-12-19 22:22] MED LIST changes: +BUSPIRONE HCL7.5 M1 PO; +DEPAKOTE ER500 M1 PO; +PROZAC40 M1 PO; +ZYPREXA20 M1 PO
--- NOTE | 2017-12-19 23:01 | ED PSYCHIATRIC COMPLAINT ---
History of Present Illness General Chief Complaint: Psychiatric Related Complaint Stated Complaint: "SI THOUGHTS" Source: patient Exam Limitations: no limitations Vital Signs & Intake/Output Vital Signs & Intake/Output Vital Signs Date Time Temp Pulse Resp B/P B/P Pulse O2 O2 Flow FiO2 Mean Ox Delivery Rate 12/23 1950 98.8 96 131/78 12/23 1236 97 134/76 12/23 1215 97 134/76 12/23 0758 97.5 96 123/64 12/23 0756 97.5 96 123 Allergies Coded Allergies: cyclobenzaprine (TREMORS 08/07/17) bupropion (Mild, Increase in afshan, reported on a previous admission 08/07/17) Reconcile Medications Chlorpromazine HCl 100 MG TABLET AGITATION (Reported) Divalproex Sodium 250 MG TABLET.DR 3 TAB PO BID bipolar disorder Fluoxetine HCl (Prozac) 40 MG CAPSULE 2 CAP PO DAILY DEPRESSION Melatonin 3 MG TABLET 3 TAB PO QPM SLEEP HELP Multivitamin (One Daily Multivitamin) 1 EACH TABLET 1 TAB PO DAILY vitamin supplement Nicotine Polacrilex (Nicorelief) 4 MG GUM 1 GUM PO Q2H PRN SMOKING CESSATION Olanzapine (Zyprexa) 20 MG TABLET 1 TAB PO AT BEDTIME bipolar disorder Trazodone HCl 100 MG TABLET 1 TAB PO QPM SLEEP HELP Triage Note: PT TO ED FOR +SI THOUGHTS "I WOULD JUMP OFF MY [place]" DENIES HI. LAST DRINK WAS YESTERDAY. DENIES PMH OF SEIZURES WITH ETOH WITHDRAWL. STATES HE WOULD LIKE ETOH DETOX. ADMITS TO SMOKING COCAINE EARLIER TODAY. DENIES PAIN. Triage Nurses Notes Reviewed? yes Onset: Abrupt Duration: hour(s):, constant, continues in ED Timing: recent history Severity: moderate HPI: 37-year-old male comes into emergency room for further evaluation of suicidal thoughts. Patient reports that he has a history of alcohol use and also history of cocaine use. Patient reports that he is been increasingly depressed and having thoughts of wanting to jump off his balcony. He lives by himself. History of suicide attempts in the past. Denies any pain. (Duane Costa) Past History Travel History Traveled to [place] past 21 day No Medical History Any Pertinent Medical History? 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 No (Duane Costa) Review of Systems Review of Systems Constitutional: Reports: no symptoms. EENTM: Reports: no symptoms. Respiratory: Reports: no symptoms. Cardiovascular: Reports: no symptoms. GI: Reports: no symptoms. Genitourinary: Reports: no symptoms. Musculoskeletal: Reports: no symptoms. Skin: Reports: no symptoms. Neurological/Psychological: Reports: see HPI. Hematologic/Endocrine: Reports: no symptoms. Immunologic/Allergic: Reports: no symptoms. All Other Systems: Reviewed and Negative (Duane Costa) Physical Exam Physical Exam General Appearance: well developed/nourished, mild distress Head: atraumatic Eyes: Bilateral: normal appearance. Ears, Nose, Throat: normal ENT inspection, hearing grossly normal Neck: normal inspection Respiratory: normal breath sounds, no respiratory distress Cardiovascular: regular rate/rhythm Extremities: normal range of motion Neurological/Psychiatric: awake Appearance/Memory/Insight: appropriate appearance Behavoir/Eye Contact/Speech: cooperative Thoughts/Hallucinations: normal thought pattern Skin: intact, normal color, warm/dry SAD PERSONS SAD PERSONS Response Value Male Sex? yes 1 Depression/Hopelessness? yes 2 Previous Attempts/Psych Care yes 1 Excessive Ethanol/Drug Use? yes 1 Rational Thinking Loss? yes 2 Single//? yes 1 Stated Future Intent? yes 2 Total 10 SAD PERSONS Done? yes (Duane Costa) Progress Differential Diagnosis: dementia, drug intoxication, drug overdose, drug withdrawal, Depression, anxiety, bipolar Plan of Care: Orders Procedure Date/time Status SUB HSP (15 MIN) 05/29 UNK Complete Change service to 12/23 UNK Active MISSING MEDICATION FORM 12/23 UNK Active SUB HSP (15 MIN) 12/22 UNK Complete SUB HSP (15 MIN) 12/21 UNK Complete Current Medications Sig/Minerva Start time Last Medication Dose Stop Time Status Admin Chlorpromazine 100 MG Q6P PRN 12/23 1430 AC 12/23 (Thorazine 100MG) 2034 Gabapentin 600 MG Q4P PRN 12/23 1400 AC 12/23 (Neurontin) 203 Fluoxetine HCl 80 MG DAILY 12/21 0900 AC 12/23 (Prozac) 0855 Multivitamins 1 TAB DAILY 12/21 0900 AC 12/23 Therapeutic 0855 (Theragran-M Vitamins Tabs) Ibuprofen 400 MG Q6P PRN 12/21 0230 AC 12/21 (Motrin) 1630 Divalproex Sodium 750 MG BID 12/20 2100 AC 12/23 (Depakote) 2211 Melatonin 9 MG QPM 12/20 2100 AC 12/23 (Melatonin) 2212 Olanzapine 20 MG AT BEDTIME 12/20 2100 AC 12/23 (Zyprexa) 2212 Trazodone HCl 100 MG QPM 12/20 2100 AC 12/23 (Desyrel) 2211 Nicotine 4 MG Q2H PRN 12/20 1830 AC 12/23 (Nicotine) 221 Hand-Off Endorsed To: Alverto Cornelius MD (Duane Costa) Initial ED EKG: normal axis, normal intervals, normal p-waves, normal QRS complex, normal sinus rhythm, NSR Hand-Off Endorsed To: Dave Harkins DO Endorsed Time: 07 Pending: consult, labs (Alverto Cornelius MD) Departure Departure Disposition: STILL A PATIENT Condition: Stable Clinical Impression Primary Impression: ETOH abuse Secondary Impressions: Depression Referrals: Niko Hernandez MD (PCP/Family) Departure Forms: Customer Survey General Discharge Information Psych Admission Note Psychiatric Admission: I have seen and evaluated MAYO SÁNCHEZ. I have also reviewed all the pertinent lab results and diagnostic results. MAYO SÁNCHEZ will be admitted to our inpatient Psychiatric unit for treatment and care. (Duane Costa) PA/EDUCATIONAL ASSISTANT Co-Sign Statement Statement: ED Attending supervision documentation- [] I saw and evaluated the patient. I have also reviewed all the pertinent lab results and diagnostic results. I agree with the findings and the plan of care as documented in the PA's/EDUCATIONAL ASSISTANT's documentation. [x] I have reviewed the ED Record and agree with the PA's/EDUCATIONAL ASSISTANT's documentation. [] Additions or exceptions (if any) to the PAs/EDUCATIONAL ASSISTANT's note and plan are summarized below: [] (Adryan PRIETO,Alverto Adkins) Departure Comments 12/20/17 12:50 PM The patient was signed out to me by Dr. Cornelius. He's been seen and evaluated by crisis. He is being admitted to Inpatient Psychiatry. (Dave Harkins DO) by crisis. He is being admitted to Inpatient Psychiatry. (Dave Harkins DO) 12/20/17 12:50 PM The patient was signed out to me by Dr. Cornelius. He's been seen and evaluated by crisis. He is being admitted to Inpatient Psychiatry. (Dave Harkins DO) 12/19/17 2308: Anion Gap 13, Estimated GFR > 60, BUN/Creatinine Ratio 13.6, Glucose 91, Calcium 9.4, Total Bilirubin 0.7, AST 13 L, ALT 35, Alkaline Phosphatase 54, Total Protein 6.5, Albumin 3.9, Globulin 2.6, Albumin/Globulin Ratio 1.5, CBC w Diff NO MAN DIFF REQ, RBC 5.01, MCV 92.0, MCH 31.3 H, MCHC 34.0, RDW 12.8, MPV 6.5 L, Gran % 53.2, Lymphocytes % 35.0, Monocytes % 9.9 H, Eosinophils % 1.6, Basophils % 0.3, Absolute Granulocytes 2.4, Absolute Lymphocytes 1.6, Absolute Monocytes 0.4, Absolute Eosinophils 0.1, Absolute Basophils 0, Valproic Acid 59.4, Serum Alcohol < 10.0 12/19/17 2244: Urine Opiates Screen < 100, Methadone Screen 55, Barbiturate Screen 83, Ur Phencyclidine Scrn < 6.00, Amphetamines Screen 358, U Benzodiazepines Scrn < 85, Urine Cocaine Screen > 1000 H, Urine Cannabis Screen 79.40 H Initial ED EKG: normal axis, normal intervals, normal p-waves, normal QRS complex, normal sinus rhythm, NSR Hand-Off Endorsed To: Dave Harkins DO Endorsed Time: 0700 Pending: consult, labs (Adryan PRIETO,Alverto Adkins) Departure Departure Disposition: STILL A PATIENT Condition: Stable Clinical Impression Primary Impression: ETOH abuse Referrals: Mary PRIETO,Niko Mckeon (PCP/Family) Departure Forms: Customer Survey General Discharge Information (Duane Costa) PA/EDUCATIONAL ASSISTANT Co-Sign Statement Statement: ED Attending supervision documentation- [] I saw and evaluated the patient. I have also reviewed all the pertinent lab results and diagnostic results. I agree with the findings and the plan of care as documented in the PA's/EDUCATIONAL ASSISTANT's documentation. [x] I have reviewed the ED Record and agree with the PA's/EDUCATIONAL ASSISTANT's documentation. [] Additions or exceptions (if any) to the PAs/EDUCATIONAL ASSISTANT's note and plan are summarized below: [] (Adryan PRIETO,Alverto Adkins) Departure Comments 12/20/17 12:50 PM The patient was signed out to me by Dr. Cornelius. He's been seen and evaluated by crisis. He is being admitted to Inpatient Psychiatry. (Dave Harkins DO)
[2017-12-19 23:18] LABS: ABSOLUTE BASOPHIL COUNT 0 /CUMM (0.0-0.2); ABSOLUTE EOSINOPHIL COUNT 0.1 /CUMM (0.0-0.7); ABSOLUTE GRANULOCYTE CT 2.4 /CUMM (1.4-6.5); ABSOLUTE LYMPH COUNT 1.6 /CUMM (1.2-3.4); ABSOLUTE MONOCYTE COUNT 0.4 /CUMM (0.10-0.60); BASOPHIL % 0.3 % (0.0-2.0); EOSINOPHIL % 1.6 % (0-5); HEMATOCRIT 46.1 % (42-52); MEAN CORPUSCULAR HGB 31.3 PG (27.0-31.0); MEAN PLATELET VOLUME 6.5 FL (7.4-10.4); PLATELET COUNT 252 /CUMM (130-400); RBC DISTRIBUTION WIDTH 12.8 % (11.5-14.5); RED BLOOD CELL CT 5.01 /CUMM (4.70-6.10); WHITE BLOOD CELL COUNT 4.4 /CUMM (4.8-10.8)
[2017-12-19 23:20] LABS: GRANULOCYTE % 53.2 % (42.2-75.2)
[2017-12-19 23:48] VITALS: BP 153/93
[2017-12-20] VITALS (9 sets, daily range): BP systolic 135–161; BP diastolic 74–106
--- NOTE | 2017-12-20 11:45 | ED PSYCH CRISIS CONSULTATION ---
See Addendum Crisis Consult Basic Assessment Date of Consult: 12/20/17 Responsible Person/Accompanied By: N/A Insurance Authorization: Insurance #1: Insurance name: LYNETTE CASANOVA Phone number: Policy number: [id number] Group number: Authorization number: ED Provider: Patient's ED Provider: Dave Harkins DO Primary Care Physician: Patient's PCP: Niko Hernandez MD PCP's Current Psychiatrist: [facility] Chief Complaint: Psychiatric Related Complaint Patient's Quote: "Feeling Suicidal" Present Illness: The patient is a 37 year old, single, male self-presenting to the ED with worsening symptoms of depression and suicidal ideations, a plan to jump off of his balcony and intention to act on his thoughts. He states that his depression is an 8 out of 10 and anxiety a 7 out of 10, 10 being the most severe. His most recent suicide attempt was in early November 2017, in which he took an overdose and was admitted to [facility]. He has been attending treatment at [facility] in the Intensive Outpatient Program, however states that he has struggled with staying clean and sober. He reports that he has good days and bad days and that the staff are aware. He reports feeling helpless, hopeless and useless with sleep disturbances and decreased motivation. He states that his primary stressors is "not getting his life back in order," however does not elaborate. He has been using Cocaine, Cannabis and alcohol noting that he last drank vodka last night and smoked Crack Cocaine, prior to coming to the ED. He denies any current homicidal ideations. He has a long history of treatment episodes, primarily on [facility] and feels that another admission would be helpful at this time. Patient's Address: [address] [place] [address] Other Who Do You Live With? Patient/Self Family/Informants Interviewed: no family/collateral ID'd Allergies - Coded Allergies: cyclobenzaprine (TREMORS 08/07/17) bupropion (Mild, Increase in afshan, reported on a previous admission 08/07/17) Current Medications - Scheduled Medications Divalproex Sodium 250 MG TABLET. 3 TAB PO BID bipolar disorder #84 TAB Prescribed by Alverto Fleming MD on 12/08/17 Fluoxetine HCl (Prozac) 40 MG CAPSULE 2 CAP PO DAILY DEPRESSION #28 CAP Prescribed by Alverto Fleming MD on 12/08/17 Melatonin 3 MG TABLET 3 TAB PO QPM SLEEP HELP #42 TAB Prescribed by Alverto Fleming MD on 12/08/17 Multivitamin (One Daily Multivitamin) 1 EACH TABLET 1 TAB PO DAILY vitamin supplement #14 TAB Prescribed by Alverto Fleming MD on 12/08/17 Olanzapine (Zyprexa) 20 MG TABLET 1 TAB PO AT BEDTIME bipolar disorder #14 TAB Prescribed by Alverto Fleming MD on 12/08/17 Trazodone HCl 100 MG TABLET 1 TAB PO QPM SLEEP HELP #14 TAB Prescribed by Alverto Fleming MD on 12/08/17 Scheduled PRN Medications Nicotine Polacrilex (Nicorelief) 4 MG GUM 1 GUM PO Q2H PRN SMOKING CESSATION # 100 GUM Prescribed by Alverto Fleming MD on 12/08/17 Miscellaneous Medications Chlorpromazine HCl 100 MG TABLET AGITATION (Reported) Entered as Reported by Heriberto Bowden on 12/01/172030 Laboratory Results: Laboratory Tests 12/19/178: Anion Gap 13, Estimated GFR > 60, BUN/Creatinine Ratio 13.6, Glucose 91, Calcium 9.4, Total Bilirubin 0.7, AST 13 L, ALT 35, Alkaline Phosphatase 54, Total Protein 6.5, Albumin 3.9, Globulin 2.6, Albumin/Globulin Ratio 1.5, CBC w Diff NO MAN DIFF REQ, RBC 5.01, MCV 92.0, MCH 31.3 H, MCHC 34.0, RDW 12.8, MPV 6.5 L, Gran % 53.2, Lymphocytes % 35.0, Monocytes % 9.9 H, Eosinophils % 1.6, Basophils % 0.3, Absolute Granulocytes 2.4, Absolute Lymphocytes 1.6, Absolute Monocytes 0.4, Absolute Eosinophils 0.1, Absolute Basophils 0, Serum Alcohol < 10.0 12/19/174: Urine Opiates Screen < 100, Methadone Screen 55, Barbiturate Screen 83, Ur Phencyclidine Scrn < 6.00, Amphetamines Screen 358, U Benzodiazepines Scrn < 85, Urine Cocaine Screen > 1000 H, Urine Cannabis Screen 79.40 H Past History Past Medical History Neurological: delerium tremens, restless leg syndrome, ETOH withdrawal seizures EENT: NONE Cardiovascular: hypertension, hyperlipidemia Respiratory: NONE Gastrointestinal: NONE Hepatic: NONE Renal: NONE Musculoskeletal: Left knee meniscal tear Psychiatric: alcohol dependence, anxiety, bipolar disease, depression, insomnia, substance abuse, Suicidal ideation, overdose suicide attempt X 15 Endocrine: NONE Blood Disorders: NONE Cancer(s): NONE 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 Complete fci Rehab @ [facility] 2018 He appears to have good insight into his need for treatment and is motivated to attend. Physical Limitations (Interventions): None noted Psychiatric Treatment History Psych Treatment Psychiatric Treatment Yes Inpatient Treatment Yes Outpatient Treatment Yes Location of Treatment [facility], [facility], [facility], [place] Reason for Treatment Mood Disorder and substance abuse Dates of Treatment Current with [facility] and last IP was at [facility] November 2017. Response to Treatment He has been consisitently attending treatment in the [facility], however has not been able to maintain being clean and sober. Diagnosis by History: By Hx. 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 How much used/taken Unclear, however drinking vodka How often almost daily For how long Unclear Route of use Oral Drug Use/Abuse 3 Substances Used/Abused Yes Substance Used/Abused Marijuana First Use 14 years old Last Used Unclear How much used/taken He states that he only smoked a few times How often "Only a few times." For how long Uknown Route of use inhalation Substance Abuse Treatment Substance Abuse Treatment Past Substance Abuse [place] Yes Inpatient Treatment Yes Outpatient Treatment Yes Location of Treatment [facility], [facility], [place], [place], [place] Reason for Treatment Abusing multiple substances Dates of Treatment Currently in the [facility] at [facility] Response to Treatment He has not been able to maintain being clean and sober. Comments: N/A Current Mental Status Mental Status Orientation: Person, Place, Situation Affect: Depressed Speech: WNL Neuro-vegetative: Helpless, Sleep Disturbance, Decreased motivation, Feeling hopeless Appearance Appearance- Dress/Hygiene: He was lying in bed and appeared to be neat and well kempt. He has good eye contact and participation in the evaluation. Behaviors Thought Process: WNL Thought Content: WNL Memory: WNL Insight: WNL SI/HI Risk Assessment Past Suicidal Ideation/Attempts Yes Current Suicidal Ideation/Att Yes Past Homicidal Ideation/Att: No Current Homicidal Ideation/Attempts No Degree of Intent: Plan, States Intent, He has a long history of having suicidal ideation and making subsequent attempts. His last attempt was in November 2017, in which he took and OD and was admitted to [facility]. He currently has a plan to jump off of his balcony and has intention to act on these thoughts. Danger To: Self Gravely Disabled: Poor Impulse Control Risk Factors: high anxiety/distress, history of Violence, history of suicide atmpts, SA/MH hospitalized, substance abuse, isolate/no social support, lives alone, male, limited support Lethality Ratin PTSD Checklist PTSD Done? patient declined (Denies trauma and abuse hx.) ED Management Sitter: Yes Restraints: No DSM5/PS Stressors/Medical Prob Diagnosis' (DSM 5, Stressors, Medical): F32.9 Unspecified Depressive Disorder F10.20 Alcohol Use Disorder F14.20 Stimulant Use Disorder, Cocaine type F12.10 Cannabis Use Disorder Medical: Hyperlipidemia and Hypertension- by hx. Stressors: Finances, employment, and relationship with children. Current GAF: 25 Comments: N/A Departure Disposition Psych Medical Clearance Date: 12/20/17 Medically Cleared at: 1030 Time Started: 1030 Time Ended: 1130 Psychiatrist Consulted: Keara Tenorio MD Date Disposition Established: 12/20/17 Time Disposition Established: 113 Plan for Disposition - Modality: Inpatient Psychiatry Facility: [facility] Rationale for Disposition: The patient presents with worsening symptoms of depression, suicidal ideations with a plan and intention to act on his thoughts. He continues to use multiple substance and was recently admitted for an intentional overdose. Case discussed with Dr. Tenorio and she would like to admit him to [facility]PS, which he is in agreement with. Type of IP Admission: Voluntary Additional Instructions: N/A Referrals Mary PRIETO,Niko Mckeon (PCP/Family)
--- NOTE | 2017-12-20 12:31 | IP CRISIS DIAG ASSESS PSYCH ---
Diagnostic Assessment Basic Assessment Insurance Authorization: Insurance #1: Insurance name: LYNETTE CASANOVA Phone number: Policy number: [id number] Group number: Authorization number: The patient was approved for 3 visits through the [facility] online portal. Authorization # [id number] Client Authorization # [id number] Type of Request INITIAL Primary Care Physician: Patient's PCP: Niko Hernandez MD PCP's Patient's Quote: "Feeling Suicidal" Present Illness: The patient is a 37 year old, single, male self-presenting to the ED with worsening symptoms of depression and suicidal ideations, a plan to jump off of his balcony and intention to act on his thoughts. He states that his depression is an 8 out of 10 and anxiety a 7 out of 10, 10 being the most severe. His most recent suicide attempt was in early November 2017, in which he took an overdose and was admitted to [facility]. He has been attending treatment at [place] in the Intensive Outpatient Program, however states that he has struggled with staying clean and sober. He reports that he has good days and bad days and that the staff are aware. He reports feeling helpless, hopeless and useless with sleep disturbances and decreased motivation. He states that his primary stressors is "not getting his life back in order," however does not elaborate. He has been using Cocaine, Cannabis and alcohol noting that he last drank vodka last night and smoked Crack Cocaine, prior to coming to the ED. He denies any current homicidal ideations. He has a long history of treatment episodes, primarily on [facility] and feels that another admission would be helpful at this time. Patient's Address: [address] [place] [address] Other Who Do You Live With? Patient/Self Feel Safe Where You Live? Yes Feel Safe in Your Relationship Yes (Not in a relationship) Marital Status: single Do You Have Children? Yes Ages? 4 children, ages unknown Primary Language? Honduran Language(s) Spoken At Home: Honduran Family/Informants Interviewed: no family/collateral ID'd Allergies - Coded Allergies: cyclobenzaprine (TREMORS 08/07/17) bupropion (Mild, Increase in afshan, reported on a previous admission 08/07/17) Current Medications - Scheduled Medications Divalproex Sodium 250 MG TABLET.DR 3 TAB PO BID bipolar disorder #84 TAB Prescribed by Alverto Fleming MD on 12/08/17 Fluoxetine HCl (Prozac) 40 MG CAPSULE 2 CAP PO DAILY DEPRESSION #28 CAP Prescribed by Alverto Fleming MD on 12/08/17 Melatonin 3 MG TABLET 3 TAB PO QPM SLEEP HELP #42 TAB Prescribed by Alverto Fleming MD on 12/08/17 Multivitamin (One Daily Multivitamin) 1 EACH TABLET 1 TAB PO DAILY vitamin supplement #14 TAB Prescribed by Alverto Fleming MD on 12/08/17 Olanzapine (Zyprexa) 20 MG TABLET 1 TAB PO AT BEDTIME bipolar disorder #14 TAB Prescribed by Alverto Fleming MD on 12/08/17 Trazodone HCl 100 MG TABLET 1 TAB PO QPM SLEEP HELP #14 TAB Prescribed by Alverto Fleming MD on 12/08/17 Scheduled PRN Medications Nicotine Polacrilex (Nicorelief) 4 MG GUM 1 GUM PO Q2H PRN SMOKING CESSATION # 100 GUM Prescribed by Alverto Fleming MD on 12/08/17 Miscellaneous Medications Chlorpromazine HCl 100 MG TABLET AGITATION (Reported) Entered as Reported by Heriberto Bowden on 12/01/172030 Consequences of Psych Med Use: N/A Comment: N/A Lab Results: Laboratory Tests 12/19/178: Anion Gap 13, Estimated GFR > 60, BUN/Creatinine Ratio 13.6, Glucose 91, Calcium 9.4, Total Bilirubin 0.7, AST 13 L, ALT 35, Alkaline Phosphatase 54, Total Protein 6.5, Albumin 3.9, Globulin 2.6, Albumin/Globulin Ratio 1.5, CBC w Diff NO MAN DIFF REQ, RBC 5.01, MCV 92.0, MCH 31.3 H, MCHC 34.0, RDW 12.8, MPV 6.5 L, Gran % 53.2, Lymphocytes % 35.0, Monocytes % 9.9 H, Eosinophils % 1.6, Basophils % 0.3, Absolute Granulocytes 2.4, Absolute Lymphocytes 1.6, Absolute Monocytes 0.4, Absolute Eosinophils 0.1, Absolute Basophils 0, Serum Alcohol < 10.0 12/19/174: Urine Opiates Screen < 100, Methadone Screen 55, Barbiturate Screen 83, Ur Phencyclidine Scrn < 6.00, Amphetamines Screen 358, U Benzodiazepines Scrn < 85, Urine Cocaine Screen > 1000 H, Urine Cannabis Screen 79.40 H Toxicology Screen Completed? Yes Results: positive (cocaine and cannabis) Symptoms of Use: N/A Past History Past Medical History Medical History: Hypertension, Herniated disc and knee pain Past Surgical History Surgical History hernia Repair, knee surgery; L meniscal tear umbilical herniorraphy Abuse/Trauma History Trauma History/Current Trauma: Denies Abuse/Trauma Treatment: He denies any trauma or abuse hx. and then stated possible emotional abuse. Legal History Current Legal Status: none (Pt. denies) Have you ever been arrested? 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 Complete retirement Rehab @ [employer] 2018 He appears to have good insight into his need for treatment and is motivated to attend. Physical Limitations (Interventions): None noted Psychiatric Treatment History Psych Treatment Psychiatric Treatment Yes Inpatient Treatment Yes Outpatient Treatment Yes Location of Treatment [facility], [facility], [facility] Reason for Treatment Mood Disorder and substance abuse Dates of Treatment Current with [facility] and last IP was at [place] November 2017. Response to Treatment He has been consisitently attending treatment in the [facility], however has not been able to maintain being clean and sober. Diagnosis by History: By Hx. 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 Hypertension Benzodiazepine (clonazepam) dependence (temporarily prescribed until Paxil dosing is optimized) Risk Factors: high anxiety/distress, history of Violence, history of suicide atmpts, SA/MH hospitalized, substance abuse, isolate/no social support, lives alone, male, limited support Substance Use/Abuse History Drug Use/Abuse minimum 12mo Hx 1 Substances Used/Abused Yes Substance Used/Abused Marijuana First Use 14 years old Last Used Unclear How much used/taken He states that he only smoked a few times How often "Only a few times." For how long Uknown Route of use inhalation Drug Use/Abuse minimum 12mo Hx 2 Substances Used/Abused Yes Substance Used/Abused Alcohol First Use 14 years old Last Used Yesterday: 12/19/2017 How much used/taken Unclear how much, but drinking vodka How often Almost Daily For how long Unclear Route of use oral Drug Use/Abuse minimum 12mo Hx 3 Substances Used/Abused Yes Substance Used/Abused Crack Cocaine First Use 18 years old Last Used yesterday; 12/19/2017 How much used/taken Unclear How often "every few days." For how long Unclear Route of use Inhalation Substance Abuse Treatment Substance Abuse Treatment Past Substance Abuse [place] Yes Inpatient Treatment Yes Outpatient Treatment Yes Location of Treatment [facility], [facility], [place], [place] Reason for Treatment Abusing multiple substances Dates of Treatment Currently in the [facility] Response to Treatment He has not been able to maintain being clean and sober. Comments: N/A Sexual History Sexual Concerns: Per history the patient reports that he has had an 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 Education History Highest Level of Education: high school/GED Preferred Learning Style: Unknown Current Mental Status Mental Status Orientation: Person, Place, Situation Affect: Depressed Speech: WNL Neuro-vegetative: Helpless, Sleep Disturbance, Decreased motivation Feeling hopeless Appearance Appearance- Dress/Hygiene: He was lying in bed and appeared to be disheveled and unkempt. He has good eye contact and participation in the evaluation. Behaviors Thought Process: WNL Thought Content: WNL Memory: WNL Insight: WNL SI/HI Risk Assessment - Minimum 6mo History- Past Suicidal Ideation/Attempts Yes Current Suicidal Ideation/Att Yes Past Homicidal Ideation/Att: No Current Homicidal Ideation/Attempts No Degree of Intent: Plan, States Intent, He has a long history of having suicidal ideation and making subsequent attempts. His last attempt was in November 2017, in which he took and OD and was admitted to [facility]. He currently has a plan to jump off of his balcony and has intention to act on these thoughts. Danger To: Self Gravely Disabled: Poor Impulse Control Risk Factors: high anxiety/distress, history of Violence, history of suicide atmpts, SA/MH hospitalized, substance abuse, isolate/no social support, lives alone, male, limited support Lethality Ratin Needs/Init TX Plan/Goals: Admit to the inpatient unit for safety and symptom stabiliy. Attend individual, family and group therapy. Work with provider on medication evaluation. Work with treatment team to transition back to care in the community. AUDIT-C Questionnaire: AUDIT-C Questionnaire: Response Value ETOH use in the past year 4 or more per week 4 # drinks typical/day 7-9 3 6 or > drinks per occasion Daily/Almost Daily 4 Total 11 DSM5/PS Stressors/Medical Prob Diagnosis' (DSM 5, Stressors, Medical): F32.9 Unspecified Depressive Disorder F10.20 Alcohol Use Disorder F14.20 Stimulant Use Disorder, Cocaine type F12.10 Cannabis Use Disorder Medical: Hyperlipidemia and Hypertension- by hx. Stressors: Finances, employment, and relationship with children. Current GAF: 25 Comments: N/A
--- NOTE | 2017-12-20 18:34 | SOCIAL WORKER SOCIAL HX PSYCH ---
Social History Basic Assessment Insurance Authorization: Insurance #1: Insurance name: LYNETTE No [email or web address] Phone number: Policy number: [id number] Group number: Authorization number: Curr Source of Income/Entitlements: basic needs Primary Care Physician: Patient's PCP: Niko Hernandez MD PCP's Present Problem: Per the Diagnostic Assessment written by Jelena Parada LCSW: The patient is a 37 year old, single, male self-presenting to the ED with worsening symptoms of depression and suicidal ideations, a plan to jump off of his balcony and intention to act on his thoughts. He states that his depression is an 8 out of 10 and anxiety a 7 out of 10, 10 being the most severe. His most recent suicide attempt was in early November 2017, in which he took an overdose and was admitted to [facility]. He has been attending treatment at [facility] in the Intensive Outpatient Program, however states that he has struggled with staying clean and sober. He reports that he has good days and bad days and that the staff are aware. He reports feeling helpless, hopeless and useless with sleep disturbances and decreased motivation. He states that his primary stressors is "not getting his life back in order," however does not elaborate. He has been using Cocaine, Cannabis and alcohol noting that he last drank vodka last night and smoked Crack Cocaine, prior to coming to the ED. He denies any current homicidal ideations. He has a long history of treatment episodes, primarily on [facility] and feels that another admission would be helpful at this time. Primary Language? Equatorial [place]inean Language(s) Spoken At Home: Equ[place]an Living Situation Rents or Owns Home? rents Feel Safe Where You Are Living Yes Allergies - Coded Allergies: cyclobenzaprine (TREMORS 08/07/17) bupropion (Mild, Increase in afshan, reported on a previous admission 08/07/17) Current Medications - Scheduled Medications Divalproex Sodium 250 MG TABLET. 3 TAB PO BID bipolar disorder #84 TAB Prescribed by Alverto Fleming MD on 12/08/17 Fluoxetine HCl (Prozac) 40 MG CAPSULE 2 CAP PO DAILY DEPRESSION #28 CAP Prescribed by Alverto Fleming MD on 12/08/17 Melatonin 3 MG TABLET 3 TAB PO QPM SLEEP HELP #42 TAB Prescribed by Alverot Fleming MD on 12/08/17 Multivitamin (One Daily Multivitamin) 1 EACH TABLET 1 TAB PO DAILY vitamin supplement #14 TAB Prescribed by Alverto Fleming MD on 12/08/17 Olanzapine (Zyprexa) 20 MG TABLET 1 TAB PO AT BEDTIME bipolar disorder #14 TAB Prescribed by Alverto Fleming MD on 12/08/17 Trazodone HCl 100 MG TABLET 1 TAB PO QPM SLEEP HELP #14 TAB Prescribed by Alverto Fleming MD on 12/08/17 Scheduled PRN Medications Nicotine Polacrilex (Nicorelief) 4 MG GUM 1 GUM PO Q2H PRN SMOKING CESSATION # 100 GUM Prescribed by Alverto Fleming MD on 12/08/17 Miscellaneous Medications Chlorpromazine HCl 100 MG TABLET AGITATION (Reported) Entered as Reported by Heriberto Bowden on 12/01/172030 Consequences of Psych Med Use: pt has a hx of stopping hiss psychiatric medications when he relapses Past History Past Medical History Neurological: delerium tremens, restless leg syndrome, ETOH withdrawal seizures EENT: NONE Cardiovascular: hypertension, hyperlipidemia Respiratory: NONE Gastrointestinal: NONE Hepatic: NONE Renal: NONE Musculoskeletal: Left knee meniscal tear Psychiatric: alcohol dependence, anxiety, bipolar disease, depression, insomnia, substance abuse, Suicidal ideation, overdose suicide attempt X 15 Endocrine: NONE Blood Disorders: NONE Cancer(s): NONE EMR ANALYST/Reproductive: NONE Past Surgical History Surgical History: hernia repair-umbilical /Family History Place/Country of Origin: [place], [place] Childhood Family Constellation: Mother, father, 3 brothers, 1 sister Primary Childhood Caretakers: mother Family Life During Childhood: Patient described his childhood as chaotic. He states that there was a lot of yelling, and kids running around. He also notes that his parents' alcoholism had a detrimental effect on his upbringing. DCF Involvement? Yes Explain: He stated that DCF was called when both he and his brother were admitted to psychiatric hospitals within a short period of time. He stated that he believes DCF is called if two children from the same family are admitted for psych during a certain period of time. Relationship w/Mother: He stated that his relationship with his mother has not always been good, but that currently their relationship is very good. He states that his mother made ammends with him for ways that she acted in the past and that he too has made ammends with her for "being a difficult son". Relationship w/Father: We have always gotten along. He stated that he did share with his father how his father's alcoholism affected him growing up. His father took responsibility and apologized which was very helpful for Martínez. Any Sibling(s)? Yes Sibling's Gender(s)/Age(s): male Sibling 1:, male Sibling 2:, male Sibling 3:, female Sibling 4: Relationship w/Sibling(s): Reports that his relationships are pretty good with his siblings. He says that in the past he has had some rough patches with his two older brothers due to their judgement of his addiction and MH problems. He says now that they are more understanding that he is "the one who got bit with the addiction bug". Relationship w/Friends: Has AA friends only; most past friends were drug-connected friends. He stated that once he stopped using, those friends disappeared. Family Psych/Sub Abuse/Add Hx: Alcoholism Mother - Depression, anxiety, alcohol use d/o Father - Alcohol use d/o Abuse/Trauma History Trauma History/Current Trauma: Denies History of Trauma/Abuse Treatment? No Abuse/Trauma Treatment: He denies any trauma or abuse hx. and then stated possible emotional abuse. Legal History Legal Guardian/Address/Phone: N/A Current Legal Status: none Pending Court Dates: n/a Have you ever been arrested Yes Number of Arrests: 3 Hx of Juvenile Legal Charges? 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 Yes If Yes: misdemeanor, felony, Multiple charges, See above. List/Date Most Recent Lgl Chgs: 04/24/08- Arrest (larceny, violation of probation) 08/20/09- Arrest (violation of protective order) 08/17/10- Arrest (criminal violation of restraining order) Chgs/Dts/Incarcerations/Sentnc None pending per patient Civil Proceedings: None noted Domestic Relations Court: None noted Child Protective Serv Involvmnt Yes twice. Both times DCF was called for verbal arguments with ex-girlfriend or ex-. One time he brought his daugther to his ex-'s house as she stated that she needed help with something. WHen he arrived, she stated that she lied and that she just did not want him spending time with their daughter, though it was his scheduled night. He took his daughter from his and went to religious, where the police arrested him after service. The second time was for an argument with his ex-girlfriend. His drinking played a factor during this time in some capacity. He stated that neither time was due to physical fighting, and that he has never hit a woman. Senior Advisory N/A Psychosocial History Primary Support System: father, mother, friend (AA friends) Strengths/Capabilities: Per History- Sobriety 10 months in 2013. 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 Physical Limitations (Interventions): None noted Last Physical: 2016 History of Seizures? Yes Last Seizure: unclear History of Blackouts? Yes Last Blackout: unk ADL Limitations: none Odanah/Social/Peer Relations Only AA friends Meaningful Activities: Playing piano and singing Childhood Restorationist: Jainism Current Hindu Affiliation: Jainism Is Spirituality Important to You? "Yes" Patient's Ethnicity: Equ[place] (Djiboutian), German, Persian, "" Cultural/Ethnic Issues: No Are There Developmental Issues? No If Yes, Explain: Unknown Milestones Achieved: WNL Psychiatric Treatment History Psych Treatment Inpatient Treatment Yes Outpatient Treatment Yes Location of Treatment [facility], [facility], [facility], [place] Reason for Treatment Mood Disorder and substance abuse Dates of Treatment Current with [facility] and last IP was at [facility] November 2017. Response to Treatment He has been consisitently attending treatment in the [facility], however has not been able to maintain being clean and sober. Current Retort Setter: [facility] Treatment of Prior Episodes: The patient has had multiple OP and IP treatment providers. Pt was discharged in October from [facility]. Pt has been to [facility] 2-3x before. Diagnosis: By Hx. 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 Hypertension Benzodiazepine (clonazepam) dependence (temporarily prescribed until Paxil dosing is optimized) Psychodynamic Issues: n/a Risk Factors: high anxiety/distress, history of Violence, history of suicide atmpts, SA/MH hospitalized, substance abuse, isolate/no social support, lives alone, male, limited support Substance Use/Abuse History Drug Use/Abuse:Min 12 mo hx 1 Substance Used/Abused Crack Cocaine First Use 18 years old Last Used yesterday; 12/19/2017 How much used/taken Unclear How often "every few days." For how long Unclear Route of use Inhalation Drug Use/Abuse:Min 12 mo hx 2 Substance Used/Abused Alcohol First Use unk Last Used 12/19/17 How much used/taken unclear , drinks vodka How often almost daily For how long unk Route of use oral Have Had Periods of Sobriety? Yes Explain: sober for 10 months [id number] sober while at [facility] from 08/15/17 to mid October 2017. Relapse History? Yes Explain: since 2013 pt has relapsed multiple times per year. Have You Ever Attended AA? Yes Do You Attend AA Currently? No Do You Have a Sponsor? No Symptoms of Use: N/A Substance Abuse Treatment Substance Abuse Treatment Inpatient Treatment Yes Outpatient Treatment Yes Location of Treatment [facility], [facility] Reason for Treatment Abusing multiple substances Dates of Treatment Currently in the [facility] Response to Treatment He has not been able to maintain being clean and sober. Sexual History Sexual Concerns: Per history the patient reports that he has had an 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 It is mainly during the warmer months but he states that they also do jobs in the winter on a lesser scale. 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 No. 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 He says that he is a hard worker, but that sometimes his attendance was poor at these various jobs History Have You Been in The ? 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 Type of Discharge: Other than honorable Date of Discharge: 1998 Current Mental Status Mental Status Orientation: Person, Place, Situation Affect: Depressed Speech: WNL Neuro-vegetative: Helpless, Sleep Disturbance, Decreased motivation Feeling hopeless Appearance Appearance- Dress/Hygiene: He was lying in bed and appeared to be disheveled and unkempt. He has good eye contact and participation in the evaluation. Behaviors Thought Process: WNL Thought Content: WNL Memory: WNL Insight: WNL SI/HI Risk Assessment Past Suicidal Ideation/Attempts Yes Current Suicidal Ideation/Att Yes (wishes to be ) Past Homicidal Ideation/Att: No Current Homicidal Ideation/Attempts No Degree of Intent: Plan, States Intent, He has a long history of having suicidal ideation and making subsequent attempts. His last attempt was in November 2017, in which he took and OD and was admitted to [facility]. He currently has a plan to jump off of his balcony and has intention to act on these thoughts. Danger To: Self Gravely Disabled: Poor Impulse Control Risk Factors: SA/MH Hospitalization(s), Hx of suicide attempt(s), Lives alone, Male, Poor impulse control, Substance Abuse Lethality Ratin - Conclusion and Recommendations for treatment - and discharge planning Summary: Pt reports nothing has changed since last admission in terms of his social history- he has not been arrested. In terms of discharge planning, pt does not want to return to [facility] and is unsure what would be helpful-residental or some other LOC.
--- NOTE | 2017-12-20 19:20 | CPS PROVIDER INIT ASMT PSYCH ---
Psychiatric Admission Contact And Service Clerks Supervisor's Note Reviewed: Yes Patient Seen and Examined: Yes Identifying Information: 37 years old male, living in an apartment in [facility] known to us from multiple inpatient and outpatient treatments Chief Complaint: I do not think my life is worth living, I do not exactly know what I am living for Reaction to Hospitalization: Voluntary admission History of Present Illness Onset of Illness: The patient was attending the dual diagnosis IOP at [facility] and was unable to refrain from using alcohol and drugs. He said he relapsed over the couple of weeks prior to admission, drinking and using cocaine, all culminating in his thinking of suicide and planning to jump off his balcony to kill himself. Circumstances Leading to Admission: While enrolled in the dual diagnosis IOP he was unable to maintain sobriety and became suicidal therefore needing a higher level of care. Problem(s) Justifying Need for Admission: Suicidal ideation with plan Long history of mental illness and significant suicide attempts in the past Poor social support Unable to see his children due to his drug use and alcohol use Past Psychiatric History Past Diagnosis(es)- if any: Bipolar disorder Cocaine use disorder, alcohol use disorder, narcissistic personality disorder, unspecified anxiety disorder, panic disorder Past Precipitating Factors- if any: Inability to visit with his children, lack of support, financial problems - Include inpatient and outpatient treatment Treatment History: Multiple inpatient/outpatient/IOP/rehabilitation treatment Most recent hospitalization in [facility] the beginning of the month Has been attending dual diagnosis IOP at [facility] Has been seen in our outpatient psychiatric services Has had multiple hospitalizations in [facility] as well as other hospitals ([facility], [facility], [facility]) History of Suicide Attempts or Gestures Preceding each of the hospitalizations he was experiencing suicidal ideation. At the most recent Inpatient Psychiatry admission he had taken overdose of his medication. Substance Abuse History: Long history of polysubstance use starting when he was 18 years old and going. He has used alcohol, cocaine, benzodiazepines, cannabis in the past. It seems that alcohol is a substance of choice, cocaine is the same Allergies: Coded Allergies: cyclobenzaprine (TREMORS 08/07/17) bupropion (Mild, Increase in afshan, reported on a previous admission 08/07/17) Home Med List: Please refer to the software project lead's diagnostic assessment - Include any medical condition(s) that may - impact the patient's recovery/remission Past History Medical History Neurological: delerium tremens, restless leg syndrome, ETOH withdrawal seizures EENT: NONE Cardiovascular: hypertension, hyperlipidemia Respiratory: NONE Gastrointestinal: NONE Hepatic: NONE Renal: NONE Musculoskeletal: Left knee meniscal tear Psychiatric: alcohol dependence, anxiety, bipolar disease, depression, insomnia, substance abuse, Suicidal ideation, overdose suicide attempt X 15 Endocrine: NONE Blood Disorders: NONE Cancer(s): NONE HEALTH SUPPORT SPECIALIST/Reproductive: NONE History of MRSA: No History of VRE: No History of CDIFF: No Isolation History: Standard Surgical History Surgical History: hernia Repair, knee surgery; L meniscal tear umbilical herniorraphy Psychiatric Family/Social Hx Family History Psychiatric Illness: Mother and grandmother suffered from depression, strong history of alcohol use/ abuse in the family, according to the patient "everybody drinks" Substance Use: Alcohol by different members of the family Suicides: None that he knows of. Social History Living Situation: Alone in a rented apartment in [place] Significant Relationships (family/friends): Says he does not have anybody anymore Education: High school graduate Vocation/Occupation: [employer] Legal: Denies any Other Social History: He has 4 children ranging in age from 20 years old to 13 years old, he is unable to see them because of his alcohol and substance abuse. Healthly Behaviors Screening Tobacco Screening Tobacco Use from ED Docu: Current Daily Use Daily Tobacco Use Amount/Type: => 5 Cigarettes daily - If tobacco counseling indicated - the following topics are required. - #1 Recognizing dangerous situations. - #2 Coping Skills. - #3 Basic information about quitting. Status of Tobacco Cessation Counseling: #1, #2 AND #3 Completed Cessation Med Status Nicotine Gum Ordered Alcohol Screening - ETOH screen POS if BAL >=80 or Audit-C>= M4/F3 Audit-C Score from Diag Assess: 10 Alcohol Use Screening Results: Pos per Audit C &/or BAL - If ETOH counseling indicated - the following topics are required. - #1 Express concern about the patient's - drinking at unhealthy levels, include informing - of national norms for moderate drinking: - men <= 14 drinks/week, max 4 drinks/occasion - women <= 7 drinks/week, max 3 drinks/occasion - #2 Providing feedback, including linking alcohol to - negative physical effects (liver injury, hypertension) - negative emotional effects (relationship problems and - depression) - negative occupational consequences (reduced work - performance) - #3 Advising the patient to abstain from alcohol or - to drink below national norms for moderate drinking - (as listed above). Status of ETOH Use Counseling: #1, #2 AND #3 Completed. Metabolic Screening - Screen if on a Neuroleptic Medication - Metabolic screening should include: - Blood Pressure, BMI, Glucose or Hgb A1c, & a - Lipid profile from within the past 365 days. Metabolic Screening Laboratory Tests 12/19 12/19 2308 2244 Chemistry Sodium (137 - 145 mmol/L) 146 H Potassium (3.5 - 5.1 mmol/L) 3.8 Chloride (98 - 107 mmol/L) 111 H Carbon Dioxide (22 - 30 mmol/L) 22 Anion Gap (5 - 16) 13 BUN (9 - 20 mg/dL) 15 Creatinine (0.7 - 1.2 mg/dL) 1.1 Estimated GFR (>60 ml/min) > 60 BUN/Creatinine Ratio (7 - 25 %) 13.6 Glucose (65 - 99 mg/dL) 91 Calcium (8.4 - 10.2 mg/dL) 9.4 Total Bilirubin (0.2 - 1.3 mg/dL) 0.7 AST (17 - 59 U/L) 13 L ALT (21 - 72 U/L) 35 Alkaline Phosphatase (< 127 U/L) 54 Total Protein (6.3 - 8.2 g/dL) 6.5 Albumin (3.5 - 5.0 g/dL) 3.9 Globulin (1.9 - 4.2 gm/dL) 2.6 Albumin/Globulin Ratio (1.1 - 2.2 %) 1.5 Hematology CBC w Diff NO MAN DIFF REQ WBC (4.8 - 10.8 /CUMM) 4.4 L RBC (4.70 - 6.10 /CUMM) 5.01 Hgb (14.0 - 18.0 G/DL) 15.7 Hct (42 - 52 %) 46.1 MCV (80.0 - 94.0 FL) 92.0 MCH (27.0 - 31.0 PG) 31.3 H MCHC (33.0 - 37.0 G/DL) 34.0 RDW (11.5 - 14.5 %) 12.8 Plt Count (130 - 400 /CUMM) 252 MPV (7.4 - 10.4 FL) 6.5 L Gran % (42.2 - 75.2 %) 53.2 Lymphocytes % (20.5 - 51.1 %) 35.0 Monocytes % (1.7 - 9.3 %) 9.9 H Eosinophils % (0 - 5 %) 1.6 Basophils % (0.0 - 2.0 %) 0.3 Absolute Granulocytes (1.4 - 6.5 /CUMM) 2.4 Absolute Lymphocytes (1.2 - 3.4 /CUMM) 1.6 Absolute Monocytes (0.10 - 0.60 /CUMM) 0.4 Absolute Eosinophils (0.0 - 0.7 /CUMM) 0.1 Absolute Basophils (0.0 - 0.2 /CUMM) 0 Toxicology Urine Opiates Screen (>2000 NG/ML) < 100 Methadone Screen (>300 NG/ML) 55 Barbiturate Screen (>200 NG/ML) 83 Valproic Acid (50 - 120 ug/mL) 59.4 Ur Phencyclidine Scrn (>25 NG/ML) < 6.00 Amphetamines Screen (>1000 NG/ML) 358 U Benzodiazepines Scrn (>200 NG/ML) < 85 Urine Cocaine Screen (>300 NG/ML) > 1000 H Urine Cannabis Screen (>50 NG/ML) 79.40 H Serum Alcohol (<10 MG/DL) < 10.0 Laboratory Tests 12/20 2307 Toxicology Valproic Acid (50 - 120 ug/mL) 59.4 () Not Applicable, patient not on a neuroleptic. OR () Patient on a neuroleptic(s) . Enter below results for Hemoglobin A1C, and lipid panel if obtained during the last 365 days. BMI: 31.600 Blood Pressure: 142/102 Laboratory Results From [facility] (If applicable): Allergies cyclobenzaprine (Coded, TREMORS, 08/07/17) bupropion (Coded, Mild, Increase in afshan, reported on a previous admission, 06/14) Laboratory Tests 12/19/172307: Anion Gap 13, Estimated GFR > 60, BUN/Creatinine Ratio 13.6, Glucose 91, Calcium 9.4, Total Bilirubin 0.7, AST 13 L, ALT 35, Alkaline Phosphatase 54, Total Protein 6.5, Albumin 3.9, Globulin 2.6, Albumin/Globulin Ratio 1.5, CBC w Diff NO MAN DIFF REQ, RBC 5.01, MCV 92.0, MCH 31.3 H, MCHC 34.0, RDW 12.8, MPV 6.5 L, Gran % 53.2, Lymphocytes % 35.0, Monocytes % 9.9 H, Eosinophils % 1.6, Basophils % 0.3, Absolute Granulocytes 2.4, Absolute Lymphocytes 1.6, Absolute Monocytes 0.4, Absolute Eosinophils 0.1, Absolute Basophils 0, Valproic Acid 59.4, Serum Alcohol < 10.0 12/19/17 2244: Urine Opiates Screen < 100, Methadone Screen 55, Barbiturate Screen 83, Ur Phencyclidine Scrn < 6.00, Amphetamines Screen 358, U Benzodiazepines Scrn < 85, Urine Cocaine Screen > 1000 H, Urine Cannabis Screen 79.40 H Exam and Plan Mental Status Examination Ambulation Status: Normal gait and stature Appearance: Looks disheveled, has body odor, greasy, light brown hair pulled back in a small bun, he is overweight, dressed in hospital issued paper scrubs Attitude towards examiner: Cooperative Psychomotor activity: Fidgety, shaky Behavior: Cooperative Quality of speech: Well articulated, uses correct grammar, goal directed, average in rate, volume and tone Affect: Anxious, depressed, constricted, sluggish, blunted, appropriate Mood: Depressed Suicidal Ideation: Present, does not have a plan/intent Homicidal Ideation: Denies Hallucinations: Denies Paranoid/Delusional Material: None reported/elicited Difficulties with thought organization: None Insight: The patient has good insight and judgment, and is motivated for treatment. Judgment: As noted Orientation: to place,time, person,situation Cognition: The patient has good attention and concentration, intact memory, average fund of knowledge and is considered to be of average intelligence Memory Function: As noted Estimate of intellectual functioning: Average Assets/Strengths Patient Identified Assets/Strengths: Good work ethic, loves his children, kind hearted, intelligent Impression/Plan Impression and Plan: 37 years old, male with suicidal ideation and plan to jump off his balcony, polysubstance use disorder, bipolar disorder refractory to treatment needing stabilization in a safe, structured environment. - Include all active medical diagnosis that require tx DSM 5 Diagnosis(es): Bipolar disorder current episode depressed Cocaine use disorder Alcohol use disorder Poor social support, inability to see his children, chronic, severe mental illness with poor response to treatment Chronic pain, hypertension, hyperlipidemia - Initial Tx Plan for Active Psych & Medical Conditions Treatment Plan: Inpatient level of care Participation in group and individual therapy, monitored for suicidal ideation, depression, anxiety Medication management and discharge planning - Factors that would help patient function - in a less restrictive setting. Factors: The patient will no longer be suicidal, the medication to not have side effects and to be tolerated, appropriate discharge planning.
--- NOTE | 2017-12-20 19:57 | PN- Att Addend ---
Attending Addendum Attending Brief Note 37 yo M with h/o bipolar disorder/ depression, anxiety, alcohol dependence, alcohol withdrawal seizures/ DT's, polysubstance abuse, HTN, HLD, chronic back pain, multiple suicide attempts with drug overdose, recently admitted to [facility] (12/01 - 12/08) for intentional drug overdose/cocaine abuse, is now admitted to Inpatient Psychiatry worsening depression and suicidal ideation with a plan to jump off the balcony. He has been using cocaine, cannabis and alcohol. On my evaluation, patient denied any symptoms of nausea, vomiting, chest pain, dyspnea, fever/chills, abdominal pain, diarrhea or urinary symptoms. 12 point ROS was otherwise negative. Vital Signs Date Time Temp Pulse Resp B/P B/P Pulse O2 O2 Flow FiO2 Mean Ox Delivery Rate 12/21 0114 77 133/82 12/20 2159 79 142/102 12/20 2008 98.6 94 152/106 12/20 1916 94 139/84 12/20 1745 75 136/77 12/20 1553 74 135/74 12/20 1550 74 135/74 12/20 1337 97.8 84 136/74 12/20 1336 97.8 84 136/74 12/20 1202 98.4 79 14 150/78 95 Room Air 12/20 0634 97.7 64 18 161/84 12/20 0615 97.7 64 18 161/ 95 Room Air Physical Exam: HEENT: eyes- PERRLA, EOMI afia- moist mucosa, no lesions Neck: no adenopathy/thyromegaly Chest: clear Cor: RRR nl S1, S2 w/o murm Abd: BS+, soft, NT, - HSM Ext: no edema, pulses 2+ Neuro: alert & oriented x 3, affect appropriate, non-focal neuro exam, CN 2-12 intact Laboratory Tests 12/19 12/19 2308 2244 Chemistry Sodium (137 - 145 mmol/L) 146 H Potassium (3.5 - 5.1 mmol/L) 3.8 Chloride (98 - 107 mmol/L) 111 H Carbon Dioxide (22 - 30 mmol/L) 22 Anion Gap (5 - 16) 13 BUN (9 - 20 mg/dL) 15 Creatinine (0.7 - 1.2 mg/dL) 1.1 Estimated GFR (>60 ml/min) > 60 BUN/Creatinine Ratio (7 - 25 %) 13.6 Glucose (65 - 99 mg/dL) 91 Calcium (8.4 - 10.2 mg/dL) 9.4 Total Bilirubin (0.2 - 1.3 mg/dL) 0.7 AST (17 - 59 U/L) 13 L ALT (21 - 72 U/L) 35 Alkaline Phosphatase (< 127 U/L) 54 Total Protein (6.3 - 8.2 g/dL) 6.5 Albumin (3.5 - 5.0 g/dL) 3.9 Globulin (1.9 - 4.2 gm/dL) 2.6 Albumin/Globulin Ratio (1.1 - 2.2 %) 1.5 Hematology CBC w Diff NO MAN DIFF REQ WBC (4.8 - 10.8 /CUMM) 4.4 L RBC (4.70 - 6.10 /CUMM) 5.01 Hgb (14.0 - 18.0 G/DL) 15.7 Hct (42 - 52 %) 46.1 MCV (80.0 - 94.0 FL) 92.0 MCH (27.0 - 31.0 PG) 31.3 H MCHC (33.0 - 37.0 G/DL) 34.0 RDW (11.5 - 14.5 %) 12.8 Plt Count (130 - 400 /CUMM) 252 MPV (7.4 - 10.4 FL) 6.5 L Gran % (42.2 - 75.2 %) 53.2 Lymphocytes % (20.5 - 51.1 %) 35.0 Monocytes % (1.7 - 9.3 %) 9.9 H Eosinophils % (0 - 5 %) 1.6 Basophils % (0.0 - 2.0 %) 0.3 Absolute Granulocytes (1.4 - 6.5 /CUMM) 2.4 Absolute Lymphocytes (1.2 - 3.4 /CUMM) 1.6 Absolute Monocytes (0.10 - 0.60 /CUMM) 0.4 Absolute Eosinophils (0.0 - 0.7 /CUMM) 0.1 Absolute Basophils (0.0 - 0.2 /CUMM) 0 Toxicology Urine Opiates Screen (>2000 NG/ML) < 100 Methadone Screen (>300 NG/ML) 55 Barbiturate Screen (>200 NG/ML) 83 Valproic Acid (50 - 120 ug/mL) 59.4 Ur Phencyclidine Scrn (>25 NG/ML) < 6.00 Amphetamines Screen (>1000 NG/ML) 358 U Benzodiazepines Scrn (>200 NG/ML) < 85 Urine Cocaine Screen (>300 NG/ML) > 1000 H Urine Cannabis Screen (>50 NG/ML) 79.40 H Serum Alcohol (<10 MG/DL) < 10.0 Assessment and plan: 37 yo M admitted for depression, polysubstance abuse and suicidal ideation. - Continue management as per Psych team. - He is requesting motrin for his cervical disc herniation pain. - Smoking cessation, nicotine patch/ gum. - Patient has a h/o HTN and HLD. He was on lisinopril and atorvastatin but was taken off them. We will recheck lipid panel (last was in May 2017) and assess need for statin. - His BP has been elevated but gradually settling down. Will watch him for now, if needed can initiate lisinopril or amlodipine. Please note, patient had overdosed on lisinopril in one of his suicide attempts. DVT ppx - early ambulation.
[2017-12-21] VITALS (15 sets, daily range): BP systolic 122–160; BP diastolic 76–110
--- NOTE | 2017-12-21 16:16 | CP SOUTH PROGRESS NOTE PSYCH ---
Psych (Inpt) Progress Note Progress Note Include the following elements, when applicable: Involvement in the active treatment of the patient with behavioral observations of the patient and the patient's response to the treatment. Review of the ongoing treatment process in the context of the treatment plan. Indication of how multi-disciplinary staff members are carrying out the treatment plan. Plans for future interventions and recommendations for revision of the treatment plan. Liaison with other physicians/providers. Progress Note: The patient was seen one-to-one and discussed with the nursing staff. He has improved hygiene by comparison with the previous day. Continues to complain of increased anxiety, depression, feeling worthless, hopeless, helpless, not having a desire to live like this anymore. Reported to be sleeping and eating well.He is up and about the unit, interacting appropriately even though minimally with peers and staff members. He is compliant with the medications and tolerates them well. He is on CIWA and Ativan per protocol. 12/20 2307 Toxicology Valproic Acid (50 - 120 ug/mL) 59.4 Sig/Minerva Start time Last Medication Dose Route Stop Time Status Admin Chlorpromazine 100 MG 4 TIMES/DAY PRN 12/20 1830 AC 12/22 PO 1215 Divalproex Sodium 750 MG BID 12/20 PO 0840 Fluoxetine HCl 80 MG DAILY 12/21 0900 12/22 PO 0841 Gabapentin 300 MG Q2P PRN 12/21 1845 AC 12/22 PO 1727 Ibuprofen 400 MG Q6P PRN 12/21 0230 AC 12/21 PO 1630 Lorazepam 2 MG Q1 NEEDED PRN 12/20 1745 AC PO Lorazepam 1 MG Q1 NEEDED PRN 12/20 1745 AC 12/21 PO 1311 Melatonin 9 MG QPM 12/20 PO 2137 Multivitamins 1 TAB DAILY 12/21 0912/22 Therapeutic PO 0841 Nicotine 4 MG Q2H PRN 12/20 1830 AC 12/22 PO 1727 Olanzapine 20 MG AT BEDTIME 12/20 2099 AC 12/21 PO 213 Trazodone HCl 100 MG QPM 12/20 PO 213 Vital Signs Date Time Temp Pulse Resp B/P B/P Pulse O2 O2 Flow FiO2 Mean Ox Delivery Rate 12/22 1731 92 138/90 12/22 1730 92 138/90 12/22 1210 98 133/78 12/22 1209 98 133/78 12/22 0837 97.9 89 131/78 12/22 0834 97.9 89 131/78 12/21 2321 99 136/82 12/21 2030 98.3 98 139/83 12/21 2029 98.3 98 139/83 12/21 2004 98.3 96 160/110 12/21 1816 98.2 84 144/92 Gabapentin was added as needed for anxiety, the patient remembers it used to help him. A/P Bipolar disorder, current episode depressed Alcohol use disorder Cocaine use disorder Improving slowly with medication, participation in unit activities, psychoeducation, supportive therapy, motivational interview. We will continue present medication regimen, observation, symptom monitoring. The patient will be followed up daily by the unit psychiatrist.
[2017-12-22] VITALS (8 sets, daily range): BP systolic 131–138; BP diastolic 75–90
--- NOTE | 2017-12-22 08:38 | CP SOUTH PROGRESS NOTE PSYCH ---
Psych (Inpt) Progress Note Progress Note Include the following elements, when applicable: Involvement in the active treatment of the patient with behavioral observations of the patient and the patient's response to the treatment. Review of the ongoing treatment process in the context of the treatment plan. Indication of how multi-disciplinary staff members are carrying out the treatment plan. Plans for future interventions and recommendations for revision of the treatment plan. Liaison with other physicians/providers. Progress Note: Subjective: Patient resting in bed easily awoken to voice. Patient states that he's not feeling great however denies current SI/HI/AVH/SIB. Patient denies side effects to medication. Patient eating and sleeping well. Patient does not yet feel safe in the community and would like to discuss plan with the team tomorrow. Denies any other physical complaints or pain. Objective: Patient was adherent with medications and in behavioral control. VSS continued to be mildly elevated with withdrawal. Patient has not required any Ativan today. Patient has not required any Ativan today.. Current Medications Sig/Minerva Start time Last Medication Dose Route Stop Time Status Admin Chlorpromazine 100 MG 4 TIMES/DAY PRN 12/20 1830 AC 12/21 PO 2137 Divalproex Sodium 750 MG BID 12/20 2099 AC 12/21 PO 2136 Fluoxetine HCl 80 MG DAILY 12/21 0900 AC 12/21 PO 0825 Gabapentin 300 MG Q2P PRN 12/21 1845 AC 12/21 PO 213 Ibuprofen 400 MG Q6P PRN 12/21 0230 AC 12/21 PO 1630 Lorazepam 2 MG Q1 NEEDED PRN 12/20 1745 AC PO Lorazepam 1 MG Q1 NEEDED PRN 12/20 1745 AC 12/21 PO 1311 Melatonin 9 MG QPM 12/20 2099 AC 12/21 PO 2136 Multivitamins 1 TAB DAILY 12/21 0900 AC 12/21 Therapeutic PO 0825 Nicotine 4 MG Q2H PRN 12/20 1830 AC 12/21 PO 2314 Olanzapine 20 MG AT BEDTIME 12/20 2099 AC 12/21 PO 2136 Trazodone HCl 100 MG QPM 12/20 2099 AC 12/21 PO 2136 Vital Signs Date Time Temp Pulse Resp B/P B/P Pulse O2 O2 Flow FiO2 Mean Ox Delivery Rate 12/22 833 97.9 89 131/78 12/21 2320 99 136/82 12/21 2030 98.3 98 139/83 12/21 2029 98.3 98 139/83 12/21 2004 98.3 96 160/110 12/217 98.2 84 144/92 12/21 1619 91 141/96 12/21 1618 91 141/96 12/21 1419 89 149/89 12/21 1312 95 138/80 12/21 1239 83 137/84 12/21 1227 83 137/84 12/21 1019 78 158/77 MSE: General: Asleep but easily awoken, oriented, fair hygiene, good eye contact, no apparent distress. Speech: Moderate rate and volume, normal prosody, fluent. Motor: No tics, tremors, stereotypy or other abnormal movements apparent. Mood: "OK" Affect: Calm, constricted constricted, mood congruent, non-labile, fairly well related. Thought process: Logical, linear and goal-directed. Thought content: No SI/HI/AVH/SIB. No apparent grandiosity, delusions, paranoia , obsessions, ruminations. Cognition: No apparent deficits in memory, attention, concentration. Insight: Fair. Judgment: Fair. A&P: 37-year-old white male with bipolar disorder, cocaine/alcohol use disorders, anxiety disorder, panic disorder, narcissistic personality disorder presenting with worsening depression and SI from [facility] diagnosis [facility]. [facility] had earlier [facility] Inpatient Psychiatry admission this month and previous admissions to [place], [place], [facility] and prior history of suicide attempt by overdose. Patient medically complicated with history of DTs, RLS, withdrawal seizures, hypertension and hyperlipidemia. VPA level 59. At this time patient does not feel to be at baseline and does not feel safe in the community, continuing to withdraw but improving. VPA level 0.59 however this is more likely due to nonadherence and will defer increasing dose at this time. Would recheck before discharge. -Maintain safety, every 15 minute checks -Continue medications as above -Change CIWA and vital signs from every 2 hours to every 4 hours, Ativan when necessary -Continue plan
[2017-12-23 07:56] VITALS: BP 123/64
[2017-12-23 07:58] VITALS: BP 123/64
--- NOTE | 2017-12-23 11:47 | CP SOUTH PROGRESS NOTE PSYCH ---
Psych (Inpt) Progress Note Progress Note I reviewed the notes of Dr. Keara Tenorio MD for 12/[address] Jaci Dash MD, for 12/22/17 Treatment team discussed Pt's progress, treatment plan, and aftercare plans. Team included: LCSWs, RNs, Group/Activity/Art Therapy staff, and psychiatrist. Patient resting in bed /taking a nap around 1:55 PM he was easily awakened and was interviewed in my office. Patient denied side effects to medication. Patient eating and sleeping well. Patient does not yet feel ready for discharge Denies any other physical complaints or pain. Patient was adherent with medications and in behavioral control. oriented, fair hygiene, good eye contact, no apparent distress. Speech: Moderate rate and volume, normal prosody, fluent. Motor: No tics, tremors, stereotypy or other abnormal movements apparent. Mood: "OK" Affect: constricted, Thought process was Logical, linear and goal-directed. No SI/HI and no hallucinations No apparent grandiosity, delusions, paranoia, obsessions, ruminations. No apparent deficits in memory, attention, concentration. Assessment: A 37-year-old white male with bipolar disorder, cocaine/alcohol use disorders, anxiety disorder, panic disorder, narcissistic personality disorder presenting with worsening depression and SI from [facility] diagnosis [facility] with thoughts to jump from his balcony. Patient had earlier [facility] Inpatient Psychiatry admission this month and previous admissions to [place], [facility] and prior history of suicide attempt by overdose. Patient medically complicated with history of DTs, RLS, withdrawal seizures, hypertension and hyperlipidemia. Treatment Plan Update: Continue medications as above Change CIWA and vital signs from every 2 hours to every 4 hours, Ativan when necessary Continue plan Date Time Temp Pulse Resp B/P B/P Pulse O2 O2 Flow FiO2 Mean Ox Delivery Rate 12/22 833 97.9 89 131/78 12/211 99 136/82 12/21 2030 98.3 98 139/83 12/21 2029 98.3 98 139/83 12/21 2004 98.3 96 160/110 12/217 98.2 84 144/92 12/21 1619 91 141/96 12/21 1618 91 141/96 12/21 1419 89 149/89 12/21 1312 95 138/80 12/21 1239 83 137/84 12/21 1227 83 137/84 12/21 1019 78 158/77 MSE: General: Asleep but easily awoken, oriented, fair hygiene, good eye contact, no apparent distress. Speech: Moderate rate and volume, normal prosody, fluent. Motor: No tics, tremors, stereotypy or other abnormal movements apparent. Mood: "OK" Affect: Calm, constricted constricted, mood congruent, non-labile, fairly well related. Thought process: Logical, linear and goal-directed. Thought content: No SI/HI/AVH/SIB. No apparent grandiosity, delusions, paranoia , obsessions, ruminations. Cognition: No apparent deficits in memory, attention, concentration. Insight: Fair. Judgment: Fair. A&P: 37-year-old white male with bipolar disorder, cocaine/alcohol use disorders, anxiety disorder, panic disorder, narcissistic personality disorder presenting with worsening depression and SI from [facility] diagnosis [facility] with thoughts to jump from his balcony. Patient had earlier [facility] Inpatient Psychiatry admission this month and previous admissions to [place], [place], [facility] and prior history of suicide attempt by overdose. Patient medically complicated with history of DTs, RLS, withdrawal seizures, hypertension and hyperlipidemia. VPA level 59. At this time patient does not feel to be at baseline and does not feel safe in the community, continuing to withdraw but improving. VPA level 0.59 however this is more likely due to nonadherence and will defer increasing dose at this time. Would recheck before discharge. -Maintain safety, every 15 minute checks -Continue medications as above -Change CIWA and vital signs from every 2 hours to every 4 hours, Ativan when necessary -Continue plan
[2017-12-23 12:15] VITALS: BP 134/76
[2017-12-23 12:36] VITALS: BP 134/76
--- NOTE | 2017-12-23 13:30 | SOCIAL WORKER PROG NOTE PSYCH ---
Social Work Progress Note Progress Note Determination Status: PENDED The services requested require additional review. You will be contacted regarding the status of this request if further information is needed. An authorization decision will be made within the required timeframes and details of that decision may be found under the member's authorization history. Member Name Member ID Member Subscriber Name Subscriber ID MAYO SÁNCHEZ [id number] MAYO Becca SÁNCHEZ [id number] Pended Authorization # Client Authorization # Type of Request [id number] CONCURRENT Date of Admission/ Start of Services Requested From Submission Date 12/20/2017 12/23/2017 12/23/2017
--- NOTE | 2017-12-23 14:05 | SOCIAL WORKER PROG NOTE PSYCH ---
Social Work Progress Note Progress Note Martínez was in groups this morning. Resting in bed after lunch. Got up when prompted to meet. Talked about how soon he relapsed after leaving [facility] earlier in the month. He said he thinks it was the very next day after d/c. He couldn' t remember any triggering events that lead up to relapse stating "all the days blend together." He said he did end up receiving services from [facility] and that the nurse has been coming in the mornings to give him his medication around 8am. He said he takes the other meds left out for him. He reports doing dual IOP here at [facility]. He has missed a couple of sessions. He has been going to AA meetings daily, but he has been drinking daily at night. He has also been using crack cocaine 1-2x's a week. He felt that things were starting to get into a bad routine so he thought he would come into the hospital for help. Had thoughts to jump off his balcony at home, but he said he had more thoughts about just wanting to stop the drug and alcohol use. He is ambivalent about his drug use. He said "part of me still wants to drink." Positive aspects for him is that he likes the way it makes him feel, it helps him get out of his head, and it helps him relax. He said the cons for him are that he doesn't pay his bills, child support, and it gets in the way of family relationships. He hasn't talked to his kids. He doesn't want to call, because he can't afford to pay the child support. This brings him down. His mood today is "pretty good." Feels a little sad talking about his kids. Asked him what he thought should happen from here? He said he wants to return to [facility]. Doesn't feel rehab is helpful in stopping his pattern. Talked about his housing situation and if leaving his apartment and going to a sober house would be better? He said he doesn't want to lose his voucher for housing and can't afford a weekly rent at a sober house. He was open to the idea of adding an additional individual therapist.
[2017-12-23 19:51] VITALS: BP 131/78
[2017-12-24 08:14] VITALS: BP 128/81
--- NOTE | 2017-12-24 08:24 | CP SOUTH PROGRESS NOTE PSYCH ---
Psych (Inpt) Progress Note Progress Note Vital Signs Date Time Temp Pulse B/P B/P Pulse O2 O2 Flow FiO2 12/24 1207 97 132/73 12/24 0814 97.0 96 128/81 12/23 1951 98.8 96 131/78 Treatment team discussed Pt's progress, treatment plan, and aftercare plans. Team included: LCSWs, RNs, Group/Activity/Art Therapy staff, and psychiatrist. Mental status examination: The patient was alert and oriented to time, place, and person. The patient reported that he is interested in naltrexone to manage his cravings for alcohol. He reported that he is interested in going back to the intensive outpatient program at [facility]. The patient's speech was normal, not pressured/not slurred. No tics, tremors, stereotypy or other abnormal movements apparent. Mood was "OK" Affect was constricted, thought process was logical, linear and goal-directed. No SI/HI and no hallucinations, no apparent grandiosity, delusions, paranoia, or ruminations. 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 Treatment Plan Update: Continue medications as above Change CIWA and vital signs from every 2 hours to every 4 hours, Ativan when necessary Continue plan
[2017-12-24 12:07] VITALS: BP 132/73
--- NOTE | 2017-12-24 14:12 | SOCIAL WORKER PROG NOTE PSYCH ---
Social Work Progress Note Progress Note Martínez showered this morning. Reports that he slept well. Mood is good- stating "maybe a little too good." He feels very happy. He denies thoughts of having special abilities/ canales. He reviewed an individual therapist list that I provided and would like to do get connected with [facility] in [place]. He signed a release for me to do the referral. I shared that he is eligible through his insurance for an Intensive Rebar Bender in the community. He agreed to sign the release for me to also refer him to that service. Signed a MARIA ANTONIA for [facility] as well. I called [facility] and informed them that he is currently in the hospital and we will call around time of d/c to reinstate services. Faxed [facility] the referral for [facility]. I later rec'd a call from [facility] stating that Martínez already has a case management director through them Timothy Clarkky [phone]. They will inform Timothy that Martínez is in the hospital. I asked Martínez about having this service in place already. He said he didn't know I was referring him to the same service. Left a message for [facility].
[2017-12-24 19:55] VITALS: BP 135/93
[2017-12-25 07:47] VITALS: BP 130/94
--- NOTE | 2017-12-25 07:53 | CP SOUTH PROGRESS NOTE PSYCH ---
Psych (Inpt) Progress Note Progress Note Vital Signs Vital Signs Date Time Temp Pulse B/P B/P Pulse O2 O2 Flow FiO2 12/25 1209 92 139/79 12/25 0747 96.2 92 130/94 12/24 1955 98.6 92 135/93 Treatment team discussed Pt's progress, treatment plan, and aftercare plans. Team included: LCSWs, RNs, Group/Activity/Art Therapy staff, and psychiatrist. Amanda Peoples, VIVIANA and I met with patient together Mental status examination: The patient was alert and oriented to time, place, and person. He reported that he is interested in going back to the intensive outpatient program at . The patient's speech was normal, not pressured/not slurred. No tics, tremors, stereotypy or other abnormal movements apparent. Mood was "OK" Affect was constricted, thought process was logical, linear and goal-directed. No SI/HI. Assessment: A 37-year-old white male who was admitted to the inpatient psychiatric unit at on 12/20/2017 with thoughts of suicide. 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 Treatment Plan Update: d/c to home with Dual IOP follow up
--- NOTE | 2017-12-25 08:29 | SOCIAL WORKER PROG NOTE PSYCH ---
Social Work Progress Note Progress Note Continuing to try and connect with Vanesa from [facility]. She left a voicemail stating they are accepting new patients on [facility]. Dr. Lozano and I met with Martínez together this morning. Martínez reports that he is currently in a good place. He feels ready to leave today. His mood is stable. Asked if he was experiencing cravings to use? He denies at this time and stated "for today I am choosing not to drink." Encouraged him to take moments at a time if needed. Talked about him returning to [facility] and setting up an intake for this afternoon if possible. Martínez reported that he had done well on Vivitrol in the past. He is hoping the Naltrexone works for him. Discussed resuming VNS with [facility]. Left a message with Francisca at [facility]. They will see him tomorrow. Martínez will have to follow up with [facility] since I was not able to get a return call before d/c today. Timothy Gill [facility] case assembler called and left a message. I returned his call and told him Martínez was discharged today to [facility].
[2017-12-25] MEDS ORDERED: DIVALPROEX SOD250 M2 PO (08:35)
[2017-12-25] MEDS ORDERED: TRAZODONE HCL100 M1 PO (08:35)
[2017-12-25] MEDS ORDERED: ZYPREXA20 M1 PO (08:35)
[2017-12-25] MEDS ORDERED: MELATONIN3 M4 PO (08:35)
[2017-12-25] MEDS ORDERED: NALTREXONE HCL50 M1 PO (08:35)
[2017-12-25] MEDS ORDERED: PROZAC40 M1 PO (08:35)
[2017-12-25] MEDS ORDERED: CHLORPROMAZINE100 M2 PO (08:35)
[2017-12-25] MEDS ORDERED: NICORELIEF4 MG PO (08:35)
[2017-12-25] MEDS ORDERED: ONE DAILY MULT1 EAC2 PO (08:35)
--- NOTE | 2017-12-25 08:38 | Patient Discharge Instructions ---
Psych Discharge Inst General Discharge Information Reason for Admission: thoughts of suicide Psy Discharge Primary Diag+ Unspecified Bipolar DO Psy Discharge Secondary Diag+ Alcohol Use Disorder Summary Tests/Major Procedures Lab ALT 35 U/L 12/19/17 2308 AST 13 U/L L 12/19/17 2308 Albumin 3.9 g/dL 12/19/17 2308 Alkaline Phosphatase 54 U/L 12/19/17 2308 Globulin 2.6 gm/dL 12/19/17 2308 Total Bilirubin 0.7 mg/dL 12/19/17 2308 Total Protein 6.5 g/dL 12/19/17 2308 Studies Pending at DC: none Patient Instructions Contact Information Your Psychiatrist on [facility] was Marta PRIETO,Barry * If you are experiencing an emergency related to this hospitalization, please call [phone] to contact the treating psychiatrist or the psychiatrist-on- call. * To Request a copy of your medical records, please contact the Medical Records Department at [phone]. * To request results of studies pending at the time of discharge, please call [phone]. * Continue your Medications until directed to stop by your Healthcare provider. General Medication Information Please continue to take your new medications and your continued home medications , unless otherwise indicated on your discharge medication list, or unless directed by your MD or SNOW RANGER to stop them. Special Instructions Diet Regular Activity Normal - Tobacco Use Treatment Offered Post DC Medications Offered: Script Given-See Med List Post DC Tobacco Treatment Plan: Refused Tobacco Tx Pgm - EtOH/Drug Use D/O Treatment Offered Post DC Medications Offered: Script Given-See Med List Post DC EtOH/SubAbuse TX Plan: Nas SubAbuse/Dual IOP Metabolic Screening Patient on a neuroleptic(s) . Enter below results for Hemoglobin A1C, and lipid panel if obtained during the last 365 days. BMI: 31.600 Blood Pressure: 130/94 Laboratory Results From [facility] (If applicable): Lab Cholesterol 203 MG/DL H 06/20/17 06 Cholesterol/HDL Ratio 6 % H 06/20/17 06 HDL Cholesterol 31 mg/dL L 06/20/17 06 Hemoglobin A1c 5.0 % 06/20/17 06 LDL Cholesterol, Calc 114 mg/dL 06/20/17 0636 Triglycerides 292 mg/dL H 06/20/17 06 Advance Directives Does the Patient have Medical Advance Directives No/Refused further info Does Pt have Psychiatric Advance Directives? No/Refused further info Does Patient have a Designated Surrogate Decision Maker: No Information About Psychiatric Advance Directives Provided? Refused Discharge Plan Post Hospital Treatment Plan: Dual Track IOP at [place]
[2017-12-25 12:09] VITALS: BP 139/79
--- NOTE | 2017-12-25 15:53 | SOCIAL WORKER PROG NOTE PSYCH ---
Social Work Progress Note Faxed Referral(s) Referred To: [facility] Transition of Care Documents sent: Health Summary, W10 Faxed to: [facility] Fax #: [phone] Faxed by: Amanda Peoples Date faxed: 12/25/17 Time Faxed: [phone]
== END 2017-12-25 13:15 | DRG 753 ==
LOC: ERH 22:22 → ENTRNSPT 12-20 12:28 → EDTRNSPTSTS 12-20 12:34 → EDTRNSPT 12-20 12:34 → EDBEDREQ 12-20 12:37 → CP SOUTH 12-20 12:51 → ERHI 12-20 12:51 → CP SOUTH 12-20 13:10 → CMPTRNSPT 12-20 13:19 → CP SOUTH 12-23 16:31
PROVIDERS: Physician Assistant Medical
DX: F31.9 Bipolar disorder, unspecified (principal); Z72.89 Other problems related to lifestyle
CPT/HCPCS: 80307; 93005; 93010; G0480

== ENCOUNTER 2018-01-06 00:34 | Inpatient (IN) | payer OTHER ==
[~2018-01-06] VITALS: Ht 188 cm; Wt 106.7 kg
--- NOTE | 2018-01-06 00:40 | ED PSYCHIATRIC COMPLAINT ---
History of Present Illness General Chief Complaint: ETOH/Drug Related Complaint Stated Complaint: ?OVERDOSE,NAUSEA,VOMITING Source: patient, old records, EMS, police Exam Limitations: no limitations Vital Signs & Intake/Output Vital Signs & Intake/Output Vital Signs Date Time Temp Pulse Resp B/P B/P Pulse O2 O2 Flow FiO2 Mean Ox Delivery Rate 01/07 0102 100.7 01/07 0100 109 32 154/78 96 Venti Mask 55% 01/07 0050 92 Venti Mask 55% 01/06 2302 92 Venti Mask 55% 01/06 2300 100.7 107 34 153/88 93 Venti Mask 55% 01/063 101.7 01/06 2134 95 Aerosol 35% Mask 01/06 2130 96 Non 100% ReBreather 01/07 2128 98.7 111 36 155/85 91 Room Air 01/06 1955 100.6 114 22 151/99 95 Room Air 01/06 1704 99.4 103 18 167/87 97 Room Air 01/06 1356 99.7 109 24 157/90 97 Room Air 01/06 1147 98.6 114 25 151/75 93 Room Air 01/06 0949 98.2 116 26 156/75 96 Nasal 2.0L Cannula 01/06 0753 97.5 113 25 142/69 96 Nasal 2.0L Cannula 01/06 0600 97.9 110 26 141/71 95 Nasal 2.0L Cannula 01/06 0504 97.9 112 26 123/59 94 Nasal 2.0L Cannula 01/06 0457 115 26 95 Nasal 2.0L Cannula 01/06 0434 117 29 97 Non 10L ReBreather 01/06 0407 98.0 118 28 138/60 97 Non 100% ReBreather 01/06 0342 96 Non 100% ReBreather 01/06 0340 125 28 96 Non 100% ReBreather 01/06 0304 98.6 133 29 144/69 98 Non 100% ReBreather 01/06 0200 98.0 131 26 144/109 94 Non 100% ReBreather ED Intake and Output 01/07 0000 01/06 1200 Intake Total 2000 Output Total 250 400 Balance -250 1600 Intake, IV 2000 Output, Urine 250 400 Patient 245 lb Weight Weight Reported by Patient Measurement Method Allergies Coded Allergies: cyclobenzaprine (TREMORS 08/07/17) bupropion (Mild, Increase in afshan, reported on a previous admission 08/07/17) Reconcile Medications Chlorpromazine HCl 100 MG TABLET 1 TAB PO Q6-PRN PRN Anxiety Divalproex Sodium 250 MG TABLET.DR 3 TAB PO BID bipolar disorder Fluoxetine HCl (Prozac) 40 MG CAPSULE 2 CAP PO DAILY DEPRESSION Melatonin 3 MG TABLET 3 TAB PO QPM SLEEP HELP Multivitamin (One Daily Multivitamin) 1 EACH TABLET 1 TAB PO DAILY vitamin supplement Naltrexone HCl 50 MG TABLET 50 MG PO DAILY Alcohol use disorder Nicotine Polacrilex (Nicorelief) 4 MG GUM 1 GUM PO Q2H PRN SMOKING CESSATION Olanzapine (Zyprexa) 20 MG TABLET 1 TAB PO AT BEDTIME bipolar disorder Trazodone HCl 100 MG TABLET 1 TAB PO QPM SLEEP HELP Triage Nurses Notes Reviewed? yes HPI: Patient brought in by EMS and police after a suicide attempt. Patient states he took approximately 100 pills. Patient is on trazodone, melatonin and Zyprexa. In total there are 70 pills missing from the bottle however there are only 3 pills missing from the Zyprexa bottle. Patient states that he took the pills prior to calling 911. Patient admits to drinking alcohol today. Patient vomited prior to arrival to the emergency department and EMS did not notice any pill capsules in the vomitus. Patient denies any homicidal ideations. (Chauncey PRIETO,Niko Iniguez) Past History Travel History Traveled to [place] past 21 day No Medical History Any Pertinent Medical History? 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 No (Chauncey PRIETONiko) Review of Systems Review of Systems Constitutional: Reports: no symptoms. EENTM: Reports: no symptoms. Respiratory: Reports: no symptoms. Cardiovascular: Reports: no symptoms. GI: Reports: see HPI, nausea, vomiting. Genitourinary: Reports: no symptoms. Musculoskeletal: Reports: no symptoms. Skin: Reports: no symptoms. Neurological/Psychological: Reports: see HPI, depressed. Hematologic/Endocrine: Reports: no symptoms. Immunologic/Allergic: Reports: no symptoms. All Other Systems: Reviewed and Negative (Chauncey PRIETO,Niko Iniguez) Physical Exam Physical Exam General Appearance: well developed/nourished, mild distress Head: atraumatic, normal appearance Eyes: Bilateral: PERRL, EOMI. Ears, Nose, Throat: normal pharynx, normal ENT inspection, hearing grossly normal Neck: normal inspection, supple, full range of motion Respiratory: normal breath sounds, chest non-tender, no respiratory distress, lungs clear Cardiovascular: regular rate/rhythm, normal peripheral pulses Gastrointestinal: normal bowel sounds, soft, non-tender Extremities: normal range of motion Neurological/Psychiatric: no motor/sensory deficits, awake, alert, calm, oriented x 3 Appearance/Memory/Insight: appropriate appearance, appropriate insight Behavoir/Eye Contact/Speech: cooperative, normal speech, good eye contact Thoughts/Hallucinations: normal thought pattern, no apparent hallucination Skin: intact, normal color, warm/dry SAD PERSONS Done? CRISIS CONSULT OBTAINED (Chauncey PRIETO,Niko Iniguez) Progress Differential Diagnosis: drug intoxication, drug overdose, drug withdrawal, electrolyte abnormality Plan of Care: Orders Procedure Date/time Status Nothing by Mouth 01/07 B Active LACTIC ACID 01/07 0330 Active Pathway - chart 01/07 0131 Active Saline Lock 01/07 0129 Active Pathway - chart 01/07 0129 Active House Staff 01/07 0129 Active Patient Data 01/07 0129 Active Patient Data 01/07 0059 Active Admit to inpatient 01/07 0036 Active TROPONIN LEVEL 01/07 0030 Active LACTIC ACID 01/07 0030 Active HEPATIC FUNCTION PANEL 01/07 0030 Active CBC WITHOUT DIFFERENTIAL 01/07 0030 Active BASIC METABOLIC PANEL 01/07 0030 Active VTE Mechanical Prophylaxis 01/07 UNK Active Vital Signs 01/07 UNK Active Patient Safety Monitor 01/07 UNK Active Seizure Precautions 01/07 UNK Active Precautions 01/07 UNK Active Intake & Output 01/07 UNK Active CIWA 01/07 UNK Active Activity/Ambulation 01/07 UNK Active Molina, Insertion/Removal/Asses 01/06 2335 Active CULTURE,URINE 01/06 2335 Active Add-on Test (ER Only) 01/06 2315 Active BLOOD CULTURE 01/06 2153 Active ARTERIAL BLOOD GAS (GEN) 01/06 2058 Complete Continuous Observation Monitor 01/06 1900 Active FingerStick- Glucose 01/06 1531 Active Continuous Observation Monitor 01/06 1500 Active Restraint- Discontinue 01/06 1114 Active Continuous Observation Monitor 01/06 1100 Active Continuous Observation Monitor 01/06 0700 Active ARTERIAL BLOOD GAS (GEN) 01/06 0155 Complete Telemetry/Handstitching Machine Collar Feller 01/06 0155 Active Add-on Test (ER Only) 01/06 0148 Active Restraint- Medical 01/06 0138 Active ACETOMINOPHEN 01/06 0115 Complete TROPONIN LEVEL 01/06 0115 Complete SALICYLATE 01/06 0115 Complete Current Medications Sig/Minerva Start time Last Medication Dose Stop Time Status Admin Cyanocobalamin/ 1 BAG DAILY 01/07 0900 UNVr Thiamine/Pyridoxine 01/07 1659 (Vitamin in I.V.) Dextrose/Water 1,000 ML (D5W 1000) Enoxaparin Sodium 40 MG DAILY 01/07 0900 UNVr (Lovenox) Folic Acid 1 MG DAILY 01/07 0900 UNVr (Folic Acid) 01/09 09 Multivitamins 1 TAB DAILY 01/07 0900 UNVr (Theragran Vitamins) Thiamine HCl 100 MG DAILY 01/07 0900 UNVr (Vitamin B1) 01/09 0901 Lorazepam 2 MG Q6 01/07 0131 UNVr (Ativan) 01/07 2358 Dextrose/Sodium 1,000 ML .Q20H 01/07 0130 UNVr Chloride (D5W-1/2 Normal Saline 1000ML) Lorazepam 2 MG Q2P PRN 01/07 0130 UNVr (Ativan) Lorazepam 1 MG Q2P PRN 01/07 0130 UNVr (Ativan) Dextrose/Sodium 1,000 ML Q6H 01/06 1530 AC 01/07 Chloride 0102 (D5W-1/2 Normal Saline 1000ML) Laboratory Tests 01/07/18 0100: Sodium Pending, Potassium Pending, Chloride Pending, Carbon Dioxide Pending, Anion Gap Pending, BUN Pending, Creatinine Pending, BUN/Creatinine Ratio Pending , Glucose Pending, Lactic Acid Pending, Calcium Pending, Total Bilirubin Pending , Direct Bilirubin Pending, AST Pending, ALT Pending, Alkaline Phosphatase Pending, Troponin I Pending, Total Protein Pending, Albumin Pending, CBC w Diff Pending, WBC Pending, RBC Pending, Hgb Pending, Hct Pending, MCV Pending, MCH Pending, MCHC Pending, RDW Pending, Plt Count Pending, MPV Pending 01/06/18 2110: pH 7.48 H, pCO2 30 L, pO2 67 L, HCO3 22, ABG O2 Sat (Measured) 92.0 L, P-50 (Temp Corrected) Y, Carboxyhemoglobin 0.5 L, O2 Concentration % R/A, Temperature 100.6 H, Phlebotomy Draw Site RIGHT BRACHIAL 01/06/18 0200: pH 7.39, pCO2 33 L, pO2 120 H, HCO3 19 L, ABG O2 Sat (Measured) 98.0, P-50 ( Temp Corrected) N, Carboxyhemoglobin 5.5 *H, O2 Concentration % 100, O2 Delivery Method NRB, Phlebotomy Draw Site RIGHT BRACHIAL Microbiology 01/07 0045 URINE ROUT: Urine Culture - RECD 01/06 2234 BLOOD: Blood Culture - RECD 01/06 2045 BLOOD: Blood Culture - RECD Diagnostic Imaging: Viewed by Me: Radiology Read. Discussed w/RAD: Radiology Read. CXR Impression: PATIENT: MAYO SÁNCHEZ PRESENT AGE: 37 PATIENT ACCOUNT NO: [id number] : 79 LOCATION: [facility] ORDERING PHYSICIAN: Niko Grossman MD SERVICE DATE: 01/06/180155 EXAM TYPE: RAD - XRY- PORTABLE CHEST XRAY EXAMINATION: XR PORTABLE CHEST CLINICAL INFORMATION: Overdose, vomiting, hypoxia COMPARISON: 08/07/2017 TECHNIQUE: Portable frontal view of the chest was obtained. FINDINGS: The lungs are hypoinflated with bronchovascular crowding and symmetric heterogeneous bibasilar opacities. No appreciable pneumothorax or definite pleural effusion. The cardiomediastinal contour is unremarkable. No acute osseous findings are seen. IMPRESSION: Heterogeneous bibasilar opacities which may be secondary to aspiration versus edema in the setting of overdose/vomiting. DICTATED BY: Jarrod Peters MD DATE/ TIME DICTATED:01/06/18348 STUDENT DEVELOPMENT COORDINATOR:JEAN DATE/TIME TRANSCRIBED: 01/06/18348 CONFIDENTIAL, DO NOT COPY WITHOUT APPROPRIATE AUTHORIZATION. 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 01/06/2018 3:31:35 PM Marco A is awake and alert but tachypneic and somewhat uncomfortable appearing. He is tachycardic and mildly hypertensive. I have ordered Ativan for the possibility of withdrawal. awaiting dispo via crisis. 01/06/2018 5:23:52 PM patient is sleeping but arouses easily. He is still mildly tachycardic but his oxygen saturations are 94-95% on room air. 01/06/2018 8:51:05 PM it is just been reported to me that the patient has a temperature of 100.6. The cause of this is unclear at this point. Chest x-ray showed no infiltrate and urinalysis is not convincing for UTI. I will hold on treatment in order to observe for trend and the patient's temperature. With reevaluation the patient is sleeping intermittently. His oral mucosa is dry and I believe this is impacting on his breathing. Given his persistent tachycardia and hypertension along with his increased temperature I have ordered Ativan for the possibility of withdrawal. 01/06/2018 9:31:15 PM I've placed a nasal trumpet and the patient is on 100% nonrebreather in order to increase his oxygenation. This will be converted over to a Ventimask with humidified air. I feel at this point we must consider medical admission for Marco A given his current medical condition. 01/06/2018 11:34:01 PM patient signed out to Dr. Cornelius. I discussed this patient's case with both Dr. Hernandez and the MOD. Once the CAT scan reports are available, Dr. Cornelius will initiate admission. (Lyn PRIETO,Dave Marte) Radiology Impression: PATIENT: MAYO SÁNCHEZ PRESENT AGE: 37 PATIENT ACCOUNT NO: [id number] : 79 LOCATION: [facility] ORDERING PHYSICIAN: Dave Nicholson MD SERVICE DATE: 01/06/18 EXAM TYPE: CAT - CT ABD & PELVIS W IV CONTRAST; CTA CHEST-PULMONARY EMBOLISM EXAMINATION: CT ANGIOGRAM CHEST, PE STUDY CT ABDOMEN AND PELVIS WITH CONTRAST CLINICAL INFORMATION: Hypoxia. Altered mental status. Overdose. Fever. Delirium. Presumptive diagnosis: Infiltrate, pulmonary embolism. Pancreatitis, diverticulitis. COMPARISON: CT abdomen pelvis dated 01/11/2017. Chest radiograph from the same date. TECHNIQUE: A noncontrast localizer was performed. Following the administration of 95 mL Optiray 320 intravenous contrast material, axial multidetector volumetric images of the chest were obtained in the pulmonary arterial phase of enhancement. Images were obtained from the abdomen through the pelvis during the portal venous phase of enhancement. Multiplanar MIP images of the chest were completed at the CT scanner and reviewed on the PACS workstation. Multiplanar reformatted images in coronal and sagittal orientations were submitted. DLP: 1700 mGy-cm. FINDINGS: CHEST: Pulmonary arteries: Examination is adequate for evaluation to the proximal segmental/lobar level, limited by respiratory motion in most areas. There are no filling defects in the pulmonary arteries to indicate pulmonary embolism. Thoracic aorta: Normal in caliber. No aneurysmal dilatation or significant atherosclerotic disease. Lungs and pleura: Patchy consolidation is present within the right lower lobe. There is opacification of the bronchi of the right lower lobe. These findings are consistent with aspiration. Mild atelectasis is present within the left lower lobe. Motion artifact somewhat limits sensitivity for small foci of consolidation as well as small lung nodules. No pleural effusion or pleural lesions are identified. Mediastinum and emery: Heart is normal in size. No pericardial effusion. No adenopathy. Vasculature is normal in caliber. No mediastinal collections. Axilla and chest wall: No adenopathy. Chest wall is unremarkable. Sensitivity for fractures is limited by motion artifact. Old healed right rib fractures are suspected. ABDOMEN PELVIS: Evaluation is slightly limited by artifact from the arms alongside the abdomen and pelvis and from motion artifact in the mid abdomen. LIVER, GALLBLADDER, BILIARY TREE: The liver is normal in size, shape, and attenuation. No focal hepatic lesion or biliary ductal dilatation is present. The gallbladder is unremarkable with no evidence of radiopaque gallstones, gallbladder wall thickening, or obvious pericholecystic inflammatory changes. PANCREAS: Unremarkable. SPLEEN: Unremarkable. ADRENAL GLANDS: Normal. KIDNEYS AND URETERS: The kidneys are normal in size, shape, and attenuation. No hydronephrosis, hydroureter, or calculi seen. No perinephric stranding. BLADDER: Normal. GASTROINTESTINAL TRACT: Stomach, small bowel, and colon are normal in caliber. Assessment is somewhat limited by motion artifact, most notably in the central abdomen. Fatty infiltration of the wall of the ascending and proximal transverse colon is a nonspecific finding but can be seen with chronic bowel inflammation. No bowel wall thickening or surrounding inflammatory changes. Appendix is normal. No intraperitoneal free fluid or free air. ABDOMINAL WALL: Small fat-containing inguinal hernias are again noted bilaterally. No ventral abdominal hernia. LYMPHOVASCULAR STRUCTURES: No lymphadenopathy. The aorta is unremarkable.. PELVIC VISCERA: Unremarkable. 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 No fracture or malalignment in the thoracic or lumbosacral spine. As mentioned above, sensitivity for rib fractures is somewhat limited by motion artifact, though no acute fractures are suspected. IMPRESSION: 1. Aspiration pneumonia in the right lower lobe, characterized by patchy consolidation with opacification of the lower lobe bronchi. 2. No evidence of pulmonary emboli. Sensitivity is limited by motion artifact to the proximal segmental/lobar level. 3. No acute intra-abdominal or intrapelvic abnormalities. DICTATED BY: Chuck Reyez MD DATE/TIME DICTATED:01/06/182357 STUDENT DEVELOPMENT COORDINATOR:JEAN DATE/TIME TRANSCRIBED:01/06/182357 CONFIDENTIAL, DO NOT COPY WITHOUT APPROPRIATE AUTHORIZATION. <Electronically signed in Other Vendor System> SIGNED BY: Chuck Reyez MD 01/07/18 0018 (Adryan PRIETO,Alverto Adkins) Departure Departure Disposition: STILL A PATIENT Condition: Stable Referrals: Niko Hernandez MD (PCP/Family) Departure Forms: Customer Survey General Discharge Information (Chauncey PRIETO,Niko Iniguez) Departure Clinical Impression Primary Impression: Suicide attempt Secondary Impressions: Aspiration pneumonia, Cocaine abuse, Mental status change , Respiratory alkalosis (Adryan PRIETO,Alverto Adkins) Critical Care Note Critical Care Note Critical Care Time: 30-74 min (Lyn PRIETO,Dave Marte)
[2018-01-06 01:34] LABS: ABSOLUTE BASOPHIL COUNT 0 /CUMM (0.0-0.2); ABSOLUTE EOSINOPHIL COUNT 0 /CUMM (0.0-0.7); ABSOLUTE LYMPH COUNT 2.6 /CUMM (1.2-3.4); MEAN CORPUSCULAR HGB 31.9 PG (27.0-31.0); MEAN CORPUSCULAR HGB CONC 35.7 G/DL (33.0-37.0)
[2018-01-06 01:39] LABS: ABSOLUTE GRANULOCYTE CT 4.7 /CUMM (1.4-6.5); ABSOLUTE MONOCYTE COUNT 0.5 /CUMM (0.10-0.60); BASOPHIL % 0.5 % (0.0-2.0); EOSINOPHIL % 0.2 % (0-5); GRANULOCYTE % 60.5 % (42.2-75.2); HEMATOCRIT 48.4 % (42-52); MEAN CORPUSCULAR VOLUME 89.2 FL (80.0-94.0); MEAN PLATELET VOLUME 6.6 FL (7.4-10.4); PLATELET COUNT 240 /CUMM (130-400); RBC DISTRIBUTION WIDTH 12.9 % (11.5-14.5); RED BLOOD CELL CT 5.43 /CUMM (4.70-6.10); WHITE BLOOD CELL COUNT 7.8 /CUMM (4.8-10.8)
--- NOTE | 2018-01-06 03:55 | RADIOLOGY REPORT ---
EXAMINATION: XR PORTABLE CHEST CLINICAL INFORMATION: Overdose, vomiting, hypoxia COMPARISON: 08/07/2017 TECHNIQUE: Portable frontal view of the chest was obtained. FINDINGS: The lungs are hypoinflated with bronchovascular crowding and symmetric heterogeneous bibasilar opacities. No appreciable pneumothorax or definite pleural effusion. The cardiomediastinal contour is unremarkable. No acute osseous findings are seen. IMPRESSION: Heterogeneous bibasilar opacities which may be secondary to aspiration versus edema in the setting of overdose/vomiting.
--- NOTE | 2018-01-06 14:47 | ED PSYCH CRISIS CONSULTATION ---
Crisis Consult Basic Assessment Date of Consult: 01/06/18 Responsible Person/Accompanied By: self Insurance Authorization: Insurance #1: Insurance name: LYNETTE CASANOVA Phone number: Policy number: [id number] Group number: Authorization number: ED Provider: Patient's ED Provider: Niko Grossman MD Primary Care Physician: Patient's PCP: Niko Hernandez MD PCP's Chief Complaint: ETOH/Drug Related Complaint Patient's Address: [address] [place] [address] Other Who Do You Live With? Patient/Self Allergies - Coded Allergies: cyclobenzaprine (TREMORS 08/07/17) bupropion (Mild, Increase in afshan, reported on a previous admission 08/07/17) Current Medications - Scheduled Medications Divalproex Sodium 250 MG TABLET.DR 3 TAB PO BID bipolar disorder #84 TAB Prescribed by Barry Lozano MD on 12/25/17 Fluoxetine HCl (Prozac) 40 MG CAPSULE 2 CAP PO DAILY DEPRESSION #28 CAP Prescribed by Barry Lozano MD on 12/25/17 Melatonin 3 MG TABLET 3 TAB PO QPM SLEEP HELP #42 TAB Prescribed by Barry Lozano MD on 12/25/17 Multivitamin (One Daily Multivitamin) 1 EACH TABLET 1 TAB PO DAILY vitamin supplement #14 TAB Prescribed by Barry Lozano MD on 12/25/17 Naltrexone HCl 50 MG TABLET 50 MG PO DAILY Alcohol use disorder #30 TAB Prescribed by Barry Lozano MD on 12/25/17 Olanzapine (Zyprexa) 20 MG TABLET 1 TAB PO AT BEDTIME bipolar disorder #14 TAB Prescribed by Barry Lozano MD on 12/25/17 Trazodone HCl 100 MG TABLET 1 TAB PO QPM SLEEP HELP #14 TAB Prescribed by Barry Lozano MD on 12/25/17 Scheduled PRN Medications Chlorpromazine HCl 100 MG TABLET 1 TAB PO Q6-PRN PRN Anxiety #60 TAB Prescribed by Barry Lozano MD on 12/25/17 Nicotine Polacrilex (Nicorelief) 4 MG GUM 1 GUM PO Q2H PRN SMOKING CESSATION # 100 GUM Prescribed by Barry Lozano MD on 12/25/17 Past History Past Medical History Neurological: delerium tremens, restless leg syndrome, ETOH withdrawal seizures EENT: NONE Cardiovascular: hypertension, hyperlipidemia Respiratory: NONE Gastrointestinal: NONE Hepatic: NONE Renal: NONE Musculoskeletal: Left knee meniscal tear Psychiatric: alcohol dependence, anxiety, bipolar disease, depression, insomnia, substance abuse, Suicidal ideation, overdose suicide attempt X 15 Endocrine: NONE Blood Disorders: NONE Cancer(s): NONE 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 Physical Limitations (Interventions): None noted Psychiatric Treatment History Diagnosis by History: By Hx. 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
--- NOTE | 2018-01-06 22:44 | RADIOLOGY REPORT ---
EXAMINATION: XR PORTABLE CHEST CLINICAL INFORMATION: Overdose. Fever. Presumptive diagnosis: Aspiration. COMPARISON: Same date at 1:53 AM TECHNIQUE: Portable frontal view of the chest was obtained. FINDINGS: There is persistent elevation of the right hemidiaphragm. Previously seen bibasilar opacities have improved as compared to prior. No pleural effusion or pneumothorax. Pulmonary vasculature is unremarkable. No interstitial edema. Osseous structures are unremarkable. IMPRESSION: Improving bibasilar airspace opacities with mild persistent elevation of the right hemidiaphragm.
[2018-01-07] VITALS (8 sets, daily range): BP systolic 104–158; BP diastolic 62–96
--- NOTE | 2018-01-07 00:01 | CT SCAN REPORT ---
EXAMINATION: CT HEAD WITHOUT CONTRAST CLINICAL INFORMATION: Overdose with altered mental status COMPARISON: 11/28/2017 TECHNIQUE: Contiguous axial imaging was performed from the skull base to vertex without intravenous administration of contrast. Images through the skull base and posterior fossa were repeated due to motion artifact. DLP: 844 mGy-cm FINDINGS: There is no evidence of acute intracranial hemorrhage or territorial infarction. No abnormal mass effect or midline shift is seen. Bergman to white matter differentiation is well preserved. No extra-axial fluid collections are identified. The ventricles are normal in size. There is no abnormal attenuation within the brain parenchyma. The osseous structures and soft tissues are normal. As in the prior study, there is marked right maxillary sinus mucosal disease. More mild disease present in the right ethmoid air cells. There is rightward deviation of the nasal septum. IMPRESSION: No acute intracranial pathology.
--- NOTE | 2018-01-07 00:18 | CT SCAN REPORT ---
EXAMINATION: CT ANGIOGRAM CHEST, PE STUDY CT ABDOMEN AND PELVIS WITH CONTRAST CLINICAL INFORMATION: Hypoxia. Altered mental status. Overdose. Fever. Delirium. Presumptive diagnosis: Infiltrate, pulmonary embolism. Pancreatitis, diverticulitis. COMPARISON: CT abdomen pelvis dated 01/11/2017. Chest radiograph from the same date. TECHNIQUE: A noncontrast localizer was performed. Following the administration of 95 mL Optiray 320 intravenous contrast material, axial multidetector volumetric images of the chest were obtained in the pulmonary arterial phase of enhancement. Images were obtained from the abdomen through the pelvis during the portal venous phase of enhancement. Multiplanar MIP images of the chest were completed at the CT scanner and reviewed on the PACS workstation. Multiplanar reformatted images in coronal and sagittal orientations were submitted. DLP: 1700 mGy-cm. FINDINGS: CHEST: Pulmonary arteries: Examination is adequate for evaluation to the proximal segmental/lobar level, limited by respiratory motion in most areas. There are no filling defects in the pulmonary arteries to indicate pulmonary embolism. Thoracic aorta: Normal in caliber. No aneurysmal dilatation or significant atherosclerotic disease. Lungs and pleura: Patchy consolidation is present within the right lower lobe. There is opacification of the bronchi of the right lower lobe. These findings are consistent with aspiration. Mild atelectasis is present within the left lower lobe. Motion artifact somewhat limits sensitivity for small foci of consolidation as well as small lung nodules. No pleural effusion or pleural lesions are identified. Mediastinum and emery: Heart is normal in size. No pericardial effusion. No adenopathy. Vasculature is normal in caliber. No mediastinal collections. Axilla and chest wall: No adenopathy. Chest wall is unremarkable. Sensitivity for fractures is limited by motion artifact. Old healed right rib fractures are suspected. ABDOMEN PELVIS: Evaluation is slightly limited by artifact from the arms alongside the abdomen and pelvis and from motion artifact in the mid abdomen. LIVER, GALLBLADDER, BILIARY TREE: The liver is normal in size, shape, and attenuation. No focal hepatic lesion or biliary ductal dilatation is present. The gallbladder is unremarkable with no evidence of radiopaque gallstones, gallbladder wall thickening, or obvious pericholecystic inflammatory changes. PANCREAS: Unremarkable. SPLEEN: Unremarkable. ADRENAL GLANDS: Normal. KIDNEYS AND URETERS: The kidneys are normal in size, shape, and attenuation. No hydronephrosis, hydroureter, or calculi seen. No perinephric stranding. BLADDER: Normal. GASTROINTESTINAL TRACT: Stomach, small bowel, and colon are normal in caliber. Assessment is somewhat limited by motion artifact, most notably in the central abdomen. Fatty infiltration of the wall of the ascending and proximal transverse colon is a nonspecific finding but can be seen with chronic bowel inflammation. No bowel wall thickening or surrounding inflammatory changes. Appendix is normal. No intraperitoneal free fluid or free air. ABDOMINAL WALL: Small fat-containing inguinal hernias are again noted bilaterally. No ventral abdominal hernia. LYMPHOVASCULAR STRUCTURES: No lymphadenopathy. The aorta is unremarkable.. PELVIC VISCERA: Unremarkable. 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 No fracture or malalignment in the thoracic or lumbosacral spine. As mentioned above, sensitivity for rib fractures is somewhat limited by motion artifact, though no acute fractures are suspected. IMPRESSION: 1. Aspiration pneumonia in the right lower lobe, characterized by patchy consolidation with opacification of the lower lobe bronchi. 2. No evidence of pulmonary emboli. Sensitivity is limited by motion artifact to the proximal segmental/lobar level. 3. No acute intra-abdominal or intrapelvic abnormalities.
--- NOTE | 2018-01-07 01:12 | History & Physical ---
Michel Tolbert MD,[facility] 01/07/18 0111: General Information and HPI MD Statement: I have seen and personally examined MAYO SÁNCHEZ and documented this H&P. The patient is a 37 year old M who presented with a patient stated chief complaint of [nausea and vomiting]. Source of Information: patient, old records, EMS, police History of Present Illness: Patient is 37-year-old male with PMH of HTN, HlD, polysubstance abuse, EtOH detox, alcohol withdrawal seizures/DT's, bipolar disorder, anxiety/depression, multiple suicide attempts via medication overdose with eight inpatient psych stays in past few years most recently twice in July 2017 was BIBA to the ED after calling 911 that he had a suicidal attempt. Patient was not able to provide history at the time of interview, despite he attempted, we were not able to contact family to get further admission. Old records, EMS, ED records were used to complete history. Basically patient called EMS and police that he had a suicidal attempt, he noted that he took approximately 100 pills including trazodone, melatonin and Zyprexa. According to the notes in total 70 pills were missing from trazodone and 3 pills from Zyprexa bottle. Patient also admits to drinking alcohol. Patient had an episode of vomiting before EMS arrival and according to EMS there were no pill or capsules in the vomitus material. Patient was admitted to [facility] last month after an intentional overdose with numerous psychiatric medications (full bottles of zyprexa, trazodone, buspar, and thorazine-approximately 200 pills) all at once and $50 of cocain for suicidal attempt, he was admitted to tele floor for prolonged QTC and was later discharged to [facility] after stablization. Patient was alert and oriented at the time of arrival to ED, yet he became more drowsy and non cooperative later during the ED admission. Allergies/Medications Allergies: Coded Allergies: cyclobenzaprine (TREMORS 08/07/17) bupropion (Mild, Increase in afshan, reported on a previous admission 08/07/17) Home Med list Chlorpromazine HCl 100 MG TABLET 1 TAB PO Q6-PRN PRN Anxiety Divalproex Sodium 250 MG TABLET. 3 TAB PO BID bipolar disorder Fluoxetine HCl (Prozac) 40 MG CAPSULE 2 CAP PO DAILY DEPRESSION Melatonin 3 MG TABLET 3 TAB PO QPM SLEEP HELP Multivitamin (One Daily Multivitamin) 1 EACH TABLET 1 TAB PO DAILY vitamin supplement Naltrexone HCl 50 MG TABLET 50 MG PO DAILY Alcohol use disorder Nicotine Polacrilex (Nicorelief) 4 MG GUM 1 GUM PO Q2H PRN SMOKING CESSATION Olanzapine (Zyprexa) 20 MG TABLET 1 TAB PO AT BEDTIME bipolar disorder Trazodone HCl 100 MG TABLET 1 TAB PO QPM SLEEP HELP Past History Travel History Traveled to [place] past 21 day No Medical History Neurological: delerium tremens, restless leg syndrome, ETOH withdrawal seizures EENT: NONE Cardiovascular: hypertension, hyperlipidemia Respiratory: NONE Gastrointestinal: NONE Hepatic: NONE Renal: NONE Musculoskeletal: Left knee meniscal tear Psychiatric: alcohol dependence, anxiety, bipolar disease, depression, insomnia, substance abuse, Suicidal ideation, overdose suicide attempt X 15 Endocrine: NONE Blood Disorders: NONE Cancer(s): NONE PENOLOGY TEACHER/Reproductive: NONE History of MRSA: No History of VRE: No History of CDIFF: No Isolation History: Standard Surgical History Surgical History: hernia repair-umbilical Past Family/Social History Family History Relations & Conditions if any Relation not specified for: *No pertinent family history Psychosocial History Who Do You Live With? self Services at Home: None Primary Language: Luxembourgish ETOH Use: alcoholic Illicit Drug Use: denies illicit drug use Functional Ability ADLs Independent: dressing, eating, toileting, bathing. Ambulation: independent IADLs Independent: shopping, housework, finances, food prep, telephone, transportation , medication admin. Review of Systems Review of Systems Constitutional: Reports: see HPI. Exam & Diagnostic Data Last 24 Hrs of Vital Signs/I&O Vital Signs Date Time Temp Pulse Resp B/P B/P Pulse O2 O2 Flow FiO2 Mean Ox Delivery Rate 01/07 0345 40 01/07 0213 100.3 110 36 153/73 96 Venti Mask 55% 01/07 0102 100.7 01/07 0100 109 32 154/78 96 Venti Mask 55% 01/07 0050 92 Venti Mask 55% 01/06 2302 92 Venti Mask 55% 01/06 2300 100.7 107 34 153/88 93 Venti Mask 55% 01/06 2153 101.7 01/06 2134 95 Aerosol 35% Mask 01/06 2130 96 Non 100% ReBreather 01/07 2128 98.7 111 36 155/85 91 Room Air 01/06 1955 100.6 114 22 151/99 95 Room Air 01/06 1704 99.4 103 18 167/87 97 Room Air 01/06 1356 99.7 109 24 157/90 97 Room Air 01/06 1147 98.6 114 25 151/75 93 Room Air 01/06 0949 98.2 116 26 156/75 96 Nasal 2.0L Cannula 01/06 0753 97.5 113 25 142/69 96 Nasal 2.0L Cannula 01/06 0600 97.9 110 26 141/71 95 Nasal 2.0L Cannula 01/06 0504 97.9 112 26 123/59 94 Nasal 2.0L Cannula 01/06 0457 115 26 95 Nasal 2.0L Cannula 01/06 0434 117 29 97 Non 10L ReBreather Intake & Output 01/07 0800 01/07 0000 01/06 1600 Intake Total 1000 Output Total 550 Balance 1000 -550 Intake, IV 1000 Output, Urine 550 Physical Exam General Appearance Moderate Distress, confused, opens eye with verbal stimuli, not cooperative, doest not follow orders Skin No Significant Lesion Skin Temp/Moisture Exam: Hot/Dry Sepsis Skin Exam (color): Normal for Ethnicity HEENT Atraumatic, Pupils mid dilated, reactive to light Neck No JVD Cardiovascular Normal S1, Normal S2, Tachicardia Lungs bilateral Ronchi, stridor Abdomen Soft Neurological Reflexes 2+, patient not cooperative Extremities No Edema Last 24 Hrs of Labs/Dieter: Laboratory Tests 01/07/18 0400: Sodium Pending, Potassium Pending, Chloride Pending, Carbon Dioxide Pending, Anion Gap Pending, BUN Pending, Creatinine Pending, Glucose Pending, Lactic Acid Pending, Calcium Pending, Phosphorus Pending, Magnesium Pending, Total Bilirubin Pending, AST Pending, ALT Pending, Creatine Kinase Pending, Albumin Pending, CBC w Diff Pending, WBC Pending, RBC Pending, Hgb Pending, Hct Pending, MCV Pending, MCH Pending, MCHC Pending, RDW Pending, Plt Count Pending, MPV Pending, Valproic Acid Pending 01/07/18 0100: Anion Gap 12, Estimated GFR > 60, BUN/Creatinine Ratio 11.0, Glucose 103 H, Lactic Acid 0.7, Calcium 8.7, Phosphorus Pending, Magnesium Pending, Total Bilirubin 1.1, Direct Bilirubin 0.3, AST 15 L, ALT 31, Alkaline Phosphatase 49, Troponin I < 0.01, Total Protein 6.1 L, Albumin 3.5, CBC w Diff NO MAN DIFF REQ , RBC 4.56 L, MCV 90.4, MCH 31.7 H, MCHC 35.1, RDW 12.6, MPV 6.9 L, Gran % 77.8 H, Lymphocytes % 12.5 L, Monocytes % 9.6 H, Eosinophils % 0, Basophils % 0.1, Absolute Granulocytes 5.6, Absolute Lymphocytes 0.9 L, Absolute Monocytes 0.7 H, Absolute Eosinophils 0, Absolute Basophils 0 01/06/182109: pH 7.48 H, pCO2 30 L, pO2 67 L, HCO3 22, ABG O2 Sat (Measured) 92.0 L, P-50 (Temp Corrected) Y, Carboxyhemoglobin 0.5 L, O2 Concentration % R/A, Temperature 100.6 H, Phlebotomy Draw Site RIGHT BRACHIAL Microbiology 01/07 0350 LOWER RESP: Respiratory Culture - RECD 01/07 0350 LOWER RESP: Gram Stain - RECD 01/07 0300 UPPER RESP: Surveillance Culture - RECD 01/07 0300 GI: Surveillance Culture - RECD 01/07 0045 URINE ROUT: Urine Culture - RECD 01/06 2234 BLOOD: Blood Culture - RECD 01/06 2045 BLOOD: Blood Culture - RECD Assessment/Plan Assessment: Patient is 37-year-old male presented after suicidal attempt Trazodone, cocaine, olanzapine, alcohol PMH of HTN, HlD, polysubstance abuse, EtOH detox, alcohol withdrawal seizures/DT 's, bipolar disorder, anxiety/depression, multiple suicide attempts via medication overdose with eight inpatient psych stays in past few years most recently twice in July 2017 VS, Ph Ex at admission: BP 157/81, CO 144, RR 26, saturating cane high flow oxygen, then change to room air, no fever Labs at admission: CBCs significant BEP bicarbonate 18, AG 19, others insignificant Initial carboxyhemoglobin hemoglobin 5.5, later 0.5, UA insignificant, U tox positive for cocaine Imagings at admission: Initial chest x-ray: Heterogeneous bibasilar opacities which may be secondary to aspiration versus edema in the setting of overdose/vomiting. later: Improving bibasilar airspace opacities with mild persistent elevation of the right hemidiaphragm. CT head: No acute intracranial process pathology Chest CT/CTA: 1. Aspiration pneumonia in the right lower lobe, characterized by patchy consolidation with opacification of the lower lobe bronchi. 2. No evidence of pulmonary emboli. Sensitivity is limited by motion artifact to the proximal segmental/lobar level. 3. No acute intra-abdominal or intrapelvic abnormalities. Patient was admitted to ICU for management of following conditions: AMS multi drug toxicity r/o Sertonin syndrom Respiratory distress Aspiration pneumonia - admit to ICU - intubation to protect airway _ BP and secured entrance monitor - IV fluids - IV ativan, for sedation + possible serotonin syndrom - Unasyn - IV fluids - poison control contacted, follow - ICU consult - confirm history with family FC NPO DVT ppx: alps and pharmacological As Ranked By This Provider Problem List: 1. Mental status change 2. Aspiration pneumonia Core Measures/Misc (04/13) Acute Coronary Syndrome ACS Diagnosis: No Congestive Heart Failure Congestive Heart Failure Diagnosis No Cerebrovascular Accident CVA/TIA Diagnosis: No VTE (View Protocol) VTE Risk Factors Acute Medical Illness No Mechanical VTE Prophylaxis d/t N/A MechProphylax Ordered No VTE Pharm Prophylaxis d/t NA PharmProphylax ordered Sepsis (View protocol) Sepsis Present: No If YES complete Sepsis Event Note If YES complete Sepsis Event Note Cody Hernandez 01/07/18 0125: Core Measures/Misc (04/13) Sepsis (View protocol) If YES complete Sepsis Event Note If YES complete Sepsis Event Note Resident Review Statement Resident Statement: examined this patient, discussed with pharmacy graduate intern, agreed with pharmacy graduate intern Other Findings: This is a 37-year-old male with past medical history of bipolar disorder, depression, anxiety, alcohol dependence, alcohol withdrawal seizure and delirium tremens, polysubstance abuse, hypertension, hyperlipidemia, chronic pain, multiple suicide attempts via overdose last admitted for alcohol detoxification in December 2016 and June 2017 and then again on December 30, 2017 for an intentional overdose with numerous psychiatric medications in combination with cocaine presents today again with with similar presentation of intentional overdose with numerous psychiatric medications namely Zyprexa, trazodone, melatonin. Apparently there were 70 missing pills from the bottle, there are only 3 pills missing from the bottle of Zyprexa. Patient states that he took the pills prior to calling 911. He admits to drinking alcohol today, his last drink was sometime today. He has had a history of alcohol withdrawal seizure and delirium tremens. He also endorses previous multiple attempts of suicide. His vitals on presentation were T-max of 100.6, pulse of 113, respiration between 25-30s, blood pressure of 155/85, he was saturating 96% on 2 L of nasal cannula. Relevant labs white count of 7.8, H/H of 17.3/48.4, platelet of 240. Sodium of 143, potassium of 4.1, BUN/creatinine 15/1.0, glucose of 102, calcium of 10, liver function tests within normal limit, first set of troponin negative, acetaminophen less than 10, serum alcohol level 131. Urine toxicology positive for urine cocaine more than thousand, urine canabies is also positive. Urinalysis showed hyaline casts, granular casts, moderate mucus and trace hemoglobin however 1-3 white blood cells and rare epithelial cells with 1-3 RBCs present. Initial ED EKG showed sinus tachycardia at [address]-T wave changes. Chest x-ray showed heterogeneous bibasilar opacity which may be secondary to aspiration versus edema in the setting of overdose/vomiting. CT head did not show any acute intracranial pathology. CT abdomen and pelvis showed aspiration pneumonia in the right lower lobe, characterized by patchy consolidation with opacification of the lower lobe bronchi, no evidence of PE, no acute intra-abdominal or intrapelvic abnormalities. In summary this is a 36-year-old male with past medical history of polysubstance abuse, EtOH detoxification, alcohol withdrawal seizures and delirium tremors, bipolar disorder, anxiety, depression, multiple suicide attempts via a drug overdose and previous 8 inpatient psychiatric stays in the past few years with most recent admission in December 2017 for intentional overdose with numerous psychiatric medications in combination with cocaine, with evidence of aspiration pneumonia on CT chest and chest x-ray presents today again with with similar presentation of intentional overdose with numerous psychiatric medications namely Zyprexa, trazodone, melatonin. His home medication consisted of olanzapine 20 mg, trazodone 100 mg. Apparently he overdosed with 100 pills (all mixed) including olanzapine, trazodoen and melatonin, there were 70 missing pills from the bottle, there are 3 pills missing from the bottle of Zyprexa. Patient states that he took the pills prior to calling 911. He admits to drinking alcohol prior to admission his last drink was on 01/05/2018 prior to comign to [facility] on 01/06/2018.He has had a history of alcohol withdrawal seizure and delirium tremens. He also endorses previous multiple attempts of suicide. Initially the patient was being monitored at the emergency department, initially on presentation he was alert oriented however 12 hours after being in the emergency department he started to become more somnolent, started to spike fever , became tachypneic, tachycardic and hypertensive and therefore it was decided to admit him due to his worsening condition. His vitals on presentation were T-max of 100.6, pulse of 113, respiration between 25-30s, blood pressure of 155/85, he was saturating 96% on 2 L of nasal cannula. On physical exam : He was not alert, oriented, only minimally responsive to verbal stimuli, was very somnolent, increased secretions and pooling of secretions at the back of the throat, coughing and gagging, increased respiratory rate, definitely in distress with labored breathing and use of accessory muscles for respiration. His pupils were equal, reactive to light and dilated, neck supple no JVD, oral mucosa was very dry, respiratory system bilateral basal crackles present, rhonchi present, CVS S1-S2 present, poor abdomen : Soft, nontender, bowel sounds present, bilateral lower extremity no edema, overall uneasy, constantly moving and anxious, jittery. Relevant labs white count of 7.8, H/H of 17.3/48.4, platelet of 240. Sodium of 143, potassium of 4.1, BUN/creatinine 15/1.0, glucose of 102, calcium of 10, liver function tests within normal limit, first set of troponin negative, acetaminophen less than 10, serum alcohol level 131. Urine toxicology positive for urine cocaine more than thousand, urine canopy is also positive. Urinalysis showed hyaline casts, granular casts, moderate mucus and trace hemoglobin however 1-3 white blood cells and rare epithelial cells with 1-3 RBCs present. Initial ED EKG showed sinus tachycardia at [address]-T wave changes. Chest x-ray showed heterogeneous bibasilar opacity which may be secondary to aspiration versus edema in the setting of overdose/vomiting. CT head did not show any acute intracranial pathology. CT abdomen and pelvis showed aspiration pneumonia in the right lower lobe, characterized by patchy consolidation with opacification of the lower lobe bronchi, no evidence of PE, no acute intra-abdominal or intrapelvic abnormalities. We contacted poison control, discussed patient's presentation and overdose of drug, with tachycardia, tachypnea, fever along with tremulousness and increased diaphoresis, 1 of the concerns was serotonin syndrome, other possible concern was neuroleptic malignant syndrome. Cyproheptadine is a p.o. medication and would require NG tube, with already aspiration, this would be risky medications therefore other alternative was to treat with IV benzodiazepine. Patient's increased respiratory rate, labored breathing and use of accessory muscles along with pooling of secretions, he was intubated, IV Ativan was started for possible serotonin syndrome along with alcohol withdrawal and sedation, initially at 2 mg/h gradually increased to 4 mg/h up to 6 mg/h. He was admitted to critical care unit for close monitoring and intubated while in the unit. Problem list #Polysubstance abuse. #Suicide attempt. #Alcohol withdrawal. #Anxiety. #Depression. #Drug overdose. #Aspiration pneumonia Psychiatric Problem #1 polysubstance overdose. -Continue to monitor on cardiac telemetry. -Serial EKGs for prolonged QTC. -IV Ativan drip. -Continue supportive care. -Urine toxicology positive for cocaine and marijuana. -Reported overdose on trazodone, melatonin, Zyprexa. -Psychiatric consultation. -Continue patient safety monitor for suicidal ideation. #2 Bipolar/anxiety/depression -Hold all medications for now. -Psychiatric consult in a.m. #3 alcohol withdrawal. -Continue to monitor CIWA scores -Continue sitter. -Psych and social work in a.m. -Continue IV Ativan drip -Aspiration precautions. -Seizure precautions -Continue banana bag, switch to multivitamin, thiamine and folate once patient is able to eat. Metabolic. -Given patient's drug overdose and suicide attempt, electrolytes and EKG need to be monitored. -Continue D5 half-normal saline at the rate of 100 cc/h. -Continue to monitor CBCs, chemistry. -Continue to monitor EKG, monitor for QT prolongation. -we will also check depakote levels. Respiratory -Elevation of head of bed. -NG tube -Intubated and ventilated with vetialtion settings AC 500/18/40%/5 -Confirm Et tube placement with cxray -ABG one hour after intubation -Repeat ABG and CXR in am. -Aspiration pnuemonia -Ct Iv unasyn. Cardiovascular. -Patient has history of hypertension, hyperlipidemia however we will hold the atorvastatin and lisinopril for now. We will keep the patient n.p.o. for now DVT prophylaxis with subcutaneous heparin. Patient is full code as per records. Brenton Hernandez 01/07/18 0454: Core Measures/Misc (04/13) Sepsis (View protocol) If YES complete Sepsis Event Note If YES complete Sepsis Event Note Attending MD Review Statement Attending Statement Attending MD Statement: examined this patient, discuss w/resident/PA/DIRECTOR OF PUBLICATIONS, agreed w/resident/PA/DIRECTOR OF PUBLICATIONS, reviewed EMR data (avail), discussed with nursing, reviewed images, amended to note Attending Assessment/Plan: CC: Suicidal attempt, overdose PMH: Bipolar disorder, anxiety, alcohol dependence, history of alcohol withdrawal seizure, polysubstance abuse, HTN, HLD, history of multiple suicidal attempts in the past with overdose Patient was brought in ER through EMS after he called 911 for attempted suicide with overdose. Patient was supposed to be on olanzapine been 20 mg, trazodone 100 mg which he reportedly overdosed with 100 pills in total along with melatonin. After pill count done by EMS never approximately 70 pills were missing mostly of trazodone. Patient also had vomited on himself. He was monitored in ER over 12-14 hours for clinical improvement and psych evaluation. Patient was alert and oriented 3 early in the morning at 6 AM on 12 but around noon time patient started to become more somnolent, later on difficult to wake up, intermittently agitated. He was persistently tachycardic, tachypneic and at times getting hypoxic, he spiked fever of 101.7 so we were called in for admission. By the time we saw the patient he was barely opening his eyes for verbal stimuli and was unable to provide any history. Thus history is mostly obtain from the chart. Tried to contact family through phone but could not be reached. Vitals: Tmax 101.7, tachycardic with 116 pulse, tachypneic respirations from 26- 36, blood pressure 141/71, saturating 95% on 55% Ventimask. On exam: Somnolent, eye opening with verbal stimuli, localizes pain, tachypneic, accessory muscles of respiration in use, patient flushed, pupils dilated, oral mucosa extremely dry and flaky, audible breathing sounds suggestive of pooling of secretion in posterior pharynx. Moderate distress, neck supple, JVD normal, no lymphadenopathy, patient spontaneously moves all extremities, tone normal, reflexes normal, no clonus, no dependent edema, no obvious skin rashes or inflammation CVS: S1-S2, RRR. RS: Coarse breathing sounds bilaterally. Abdomen: Soft, NT, ND, bowel sounds present. CT head: No acute intracranial pathology. CT abdomen pelvis with IV contrast and CTA chest: 1. Aspiration pneumonia in the right lower lobe, characterized by patchy consolidation with opacification of the lower lobe bronchi. 2. No evidence of pulmonary emboli. Sensitivity is limited by motion artifact to the proximal segmental/lobar level. 3. No acute intra-abdominal or intrapelvic abnormalities. Assessment and plan 37-year-old male with extensive past medical history as mentioned above and multiple suicidal attempts in the past with overdose of various substances was brought in ER through EMS after he called 911 stating that he overdosed on pills. He told that he took 100 pills in total of olanzapine, melatonin and trazodone but on these count done by EMS 70 pills were missing. Initially patient was alert oriented in ER for first few hours. 12 hours after arrival patient was more somnolent, less oriented which progressively worsened. Patient was getting intermittently agitated so he received total 5 mg of Ativan towards evening. Later he developed fever of 101.7, was persistently tachypneic and tachycardic so medicine team was called for admission. On exam He was Somnolent, eye opening with verbal stimuli, localizes pain, spontaneously moves all extremities, tachypneic, accessory muscles of respiration in use, patient flushed, pupils dilated, oral mucosa extremely dry and flaky, audible breathing sounds suggestive of pooling of secretion in posterior pharynx. Coarse breathing sounds bilaterally. Given pooling of secretions the posterior pharynx and somnolence along with tachypnea of 35-40/ min; patient was intubated for airway protection. CT chest confirms aspiration pneumonia which explains tachycardia, fever, tachypnea. At the same time side effects from trazodone, olanzapine cannot be excluded for example serotonin syndrome or neuroleptic malignant syndrome. Poison control was called, they were concerned about serotonin syndrome given that he spiked fever, tachycardic and tachypneic. But for me patient was not hyperreflexic, hypertonic. Less likely serotonin syndrome. His lactic acid 0.7. In either situation supportive care was suggested, According to poison control it would be harmful to give cyproheptadine through NG tube as patient is intubated with the risk of more aspiration; second choice would be benzodiazepines. He continued IV Ativan drip, aggressive hydration, IV Unasyn. + GCS 10 : Secondary to overdose of olanzapine and trazodone Polysubstance abuse+ + Aspiration pneumonia + Possibility of serotonin syndrome + Suicidal attempt + History of Bipolar disorder, anxiety, alcohol dependence, history of alcohol withdrawal seizure, polysubstance abuse, HTN, HLD - Admit to ICU - Every hourly vitals - Continue vent setting 500/18/40%/5 AC - Titrate O2 according to saturation - Repeat ABG in one hour and then in a.m. - Post intubation chest x-ray - Oral hygiene - NG tube - IV Protonix 40 mg daily - Head-end an elevation - Continue IV Unasyn - Serial ECGs for QTc interval - Check Depakote level - Continue aggressive hydration - Check mag and phosphorus CPK to the sampled and lab - Strict I's and O's - Serial troponins - avoid SSRI - Seizure precaution - Continue IV Ativan drip titrate to ROSS of 0 - Critical care consult TTS 45 min - Critical care consult TTS 45 min
[2018-01-07 01:42] LABS: ABSOLUTE BASOPHIL COUNT 0 /CUMM (0.0-0.2); ABSOLUTE EOSINOPHIL COUNT 0 /CUMM (0.0-0.7); ABSOLUTE GRANULOCYTE CT 5.6 /CUMM (1.4-6.5); ABSOLUTE LYMPH COUNT 0.9 /CUMM (1.2-3.4); MEAN CORPUSCULAR HGB 31.7 PG (27.0-31.0); RED BLOOD CELL CT 4.56 /CUMM (4.70-6.10)
[2018-01-07 01:49] LABS: ABSOLUTE MONOCYTE COUNT 0.7 /CUMM (0.10-0.60); BASOPHIL % 0.1 % (0.0-2.0); EOSINOPHIL % 0 % (0-5); GRANULOCYTE % 77.8 % (42.2-75.2); MEAN CORPUSCULAR HGB CONC 35.1 G/DL (33.0-37.0); MEAN CORPUSCULAR VOLUME 90.4 FL (80.0-94.0); MEAN PLATELET VOLUME 6.9 FL (7.4-10.4); PLATELET COUNT 226 /CUMM (130-400); RBC DISTRIBUTION WIDTH 12.6 % (11.5-14.5); WHITE BLOOD CELL COUNT 7.2 /CUMM (4.8-10.8)
[2018-01-07 01:56] LABS: HEMATOCRIT 41.2 % (42-52)
--- NOTE | 2018-01-07 04:15 | Event Note ---
Event Note Event Note: Background : Poison control contact/Intubation Situation : * With patient's worsening condition,increased secretions, aspiration and inability to maintain airway, increased somnolence,higher temperatures, tachycardia and hypertension, and history of attempted suicide with psychiatric mediations overdose (possibly ? trazodone, melatonin and zyprexa), poison control was contacted. * Patient presentation, his signs and symptoms, relevant labs, physical signs and a history of illness was discussed. One thing to worry in his case after 24 hours of initial stable presentation which was now worsening would be serotonin syndrome. There would be 2 options to treat, one cyproheptadine and second benzodiazepine. As benzodiazepine will treat both possible serotonin syndrome and alcohol withdrawal, plan was made to start the patient on IV Ativan after intubating him to secure his airway. Assessment : Patient's increasing somnolence, increasing temperatures, increasing blood pressure with increasing diaphoretic secretions, his airway needed to be secured therefore will need intubation, we will start IV Ativan for both treating serotonin syndrome, sedation as well as alcohol withdrawal. Plan -Stat intubation -[place] Poison control contacted at [phone] -IV Ativan drip. -IV Protonix twice daily -Chest x-ray to confirm placement of the tube, ABG 1 hour after chest x-ray. -Repeat chest x-ray in a.m. along with ABG. -We will repeat ICU bundle, CBC and CPK along with lactic acid in a.m. -IV Tylenol for fever. -Dr. Hernandez was at bedside during the initial admission and during intubation. -Plan discussed with ICU attending Dr. Park.
[2018-01-07 04:39] LABS: ABSOLUTE BASOPHIL COUNT 0 /CUMM (0.0-0.2); ABSOLUTE EOSINOPHIL COUNT 0 /CUMM (0.0-0.7); ABSOLUTE LYMPH COUNT 0.5 /CUMM (1.2-3.4); ABSOLUTE MONOCYTE COUNT 0.6 /CUMM (0.10-0.60); BASOPHIL % 0.1 % (0.0-2.0); EOSINOPHIL % 0.1 % (0-5); MEAN CORPUSCULAR HGB 31.5 PG (27.0-31.0); MEAN CORPUSCULAR HGB CONC 34.8 G/DL (33.0-37.0); MEAN CORPUSCULAR VOLUME 90.7 FL (80.0-94.0); MEAN PLATELET VOLUME 6.6 FL (7.4-10.4); PLATELET COUNT 201 /CUMM (130-400); RBC DISTRIBUTION WIDTH 13.1 % (11.5-14.5); RED BLOOD CELL CT 4.63 /CUMM (4.70-6.10); WHITE BLOOD CELL COUNT 6.2 /CUMM (4.8-10.8)
--- NOTE | 2018-01-07 04:57 | Admission Certification ---
Admission Certification Certification Statement - As attending physician, I certify that at the time of - admission, based on clinical presentation, severity of - symptoms, need for further diagnostic testing and - therapeutic interventions, and risk of adverse outcomes - without in-hospital treatment, in my clinical assessment, - this patient requires an acute hospital stay for a minimum - of two nights or longer. I have also considered psychsocial - factors such as support system, advanced age, financial - issues, cognitive issues, and failed out-patient treatments, - past re-admission history, safety of patient, and lack of - compliance as applicable. Specific rationale supporting this admission is: Suicidal behavior, overdose, encephalopathy
--- NOTE | 2018-01-07 05:03 | RADIOLOGY REPORT ---
EXAMINATION: XR PORTABLE CHEST CLINICAL INFORMATION: Intubation COMPARISON: 01/06/2018 TECHNIQUE: Portable frontal view of the chest was obtained. FINDINGS: Endotracheal tube tip lies approximately 6 and meter above the josue. Enteric tube is seen coursing at least to the level of the gastroesophageal junction though is not well seen beyond this region. Heterogeneous opacity in the right lower lobe seen on yesterday's CT is not well demonstrated radiographically. The left lung appears clear. No appreciable pneumothorax, though the lung apices are not fully included on this exam. No significant pleural effusion. The cardiomediastinal silhouette is stable. No acute osseous findings are seen. IMPRESSION: 1. Endotracheal tube tip approximately 6 cm above the josue. 2. Heterogeneous right lower lobe opacity seen on recent CT is not well demonstrated radiographically. 3. Enteric tube tip is not well seen distally beyond the gastroesophageal junction. Tube position may be better evaluated with an upper abdominal radiograph.
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
--- NOTE | 2018-01-07 14:52 | RADIOLOGY REPORT ---
EXAMINATION: XR PORTABLE CHEST CLINICAL INFORMATION: Respiratory failure, aspiration pneumonia. Chest x-ray for orogastric tube. COMPARISON: Chest x-ray from earlier today at 4:00 AM. TECHNIQUE: Portable frontal view of the lower chest and upper abdomen was obtained. FINDINGS: Positioning of enteric tube tip remains suboptimal. Most likely, the tip is in the region of the GE junction. Bowel gas pattern is unremarkable. Included lung bases are unremarkable. IMPRESSION: Assessment of the enteric tube tip remains suboptimal. Tip is likely in the region of the GE junction.
[2018-01-07 15:37] LABS: ABSOLUTE BASOPHIL COUNT 0 /CUMM (0.0-0.2); ABSOLUTE EOSINOPHIL COUNT 0 /CUMM (0.0-0.7); ABSOLUTE GRANULOCYTE CT 5.1 /CUMM (1.4-6.5); ABSOLUTE LYMPH COUNT 1.2 /CUMM (1.2-3.4); ABSOLUTE MONOCYTE COUNT 0.6 /CUMM (0.10-0.60); BASOPHIL % 0.2 % (0.0-2.0); EOSINOPHIL % 0.5 % (0-5); GRANULOCYTE % 73.1 % (42.2-75.2); HEMATOCRIT 38.8 % (42-52); MEAN CORPUSCULAR HGB 31.6 PG (27.0-31.0); MEAN CORPUSCULAR HGB CONC 34.7 G/DL (33.0-37.0); MEAN PLATELET VOLUME 6.8 FL (7.4-10.4); PLATELET COUNT 205 /CUMM (130-400); RBC DISTRIBUTION WIDTH 13.2 % (11.5-14.5); RED BLOOD CELL CT 4.26 /CUMM (4.70-6.10)
[2018-01-07 15:48] LABS: PT 14.4 SEC (9.4-12.5); PTT 33 SEC (25-37)
--- NOTE | 2018-01-07 19:18 | RADIOLOGY REPORT ---
EXAMINATION: XR PORTABLE CHEST CLINICAL INFORMATION: Check position of nasogastric tube. COMPARISON: Abdominal radiograph 01/07/2018. TECHNIQUE: Portable frontal view of the chest was obtained. FINDINGS: The distal tip of the nasogastric tube appears to terminate within the antrum of stomach. Evaluation of the bowel gas pattern is suboptimal due to limitations and image quality. Lung bases are grossly clear. Mediastinal contours are unremarkable. The tip of an endotracheal tube is partially included within the [id number] of this examination. IMPRESSION: The distal tip of the nasogastric tube appears to terminate within the antrum of the stomach.
[2018-01-08] VITALS: BP 116/60; BP 116/80
[2018-01-08 02:00] VITALS: BP 110/67
[2018-01-08 04:00] VITALS: BP 126/80
[2018-01-08 05:13] LABS: ABSOLUTE BASOPHIL COUNT 0 /CUMM (0.0-0.2); ABSOLUTE EOSINOPHIL COUNT 0.1 /CUMM (0.0-0.7); ABSOLUTE GRANULOCYTE CT 4.9 /CUMM (1.4-6.5); ABSOLUTE LYMPH COUNT 0.9 /CUMM (1.2-3.4); ABSOLUTE MONOCYTE COUNT 0.5 /CUMM (0.10-0.60); BASOPHIL % 0.4 % (0.0-2.0); EOSINOPHIL % 2.1 % (0-5); HEMATOCRIT 36.3 % (42-52); MEAN CORPUSCULAR HGB 31.8 PG (27.0-31.0); MEAN CORPUSCULAR VOLUME 90.9 FL (80.0-94.0); MEAN PLATELET VOLUME 6.6 FL (7.4-10.4); PLATELET COUNT 177 /CUMM (130-400); RBC DISTRIBUTION WIDTH 12.9 % (11.5-14.5); RED BLOOD CELL CT 3.99 /CUMM (4.70-6.10); WHITE BLOOD CELL COUNT 6.5 /CUMM (4.8-10.8)
[2018-01-08 06:00] VITALS: BP 129/80
--- NOTE | 2018-01-08 07:18 | PN- Resident CRCU ---
Stefano PRIETO,Luz Marina 01/08/18 0717: Subjective HPI/CRCU Issues: Patient is seen and examined at the bedside. He still in ventilation on getting lorazepam drip at the rate of 9 mg/h. We will continue her IV fluids normal saline 150 cc/h. His follow-up CPKs high. 24 Hour Events: Vital signs-temperature 97.9, T-max-101.1 pulse 83, sinus rhythm, respiratory rate 20, blood pressure 139/82, ventilator setting-assist control, tidal volume 500, FiO2 35%, pressure 18, SPO2 97% intake/output-5282/1300. Objective Vital Signs & I&O Last 8 Hrs of Vitals and I&O: Vital signs-temperature 97.9, T-max-101.1 pulse 83, sinus rhythm, respiratory rate 20, blood pressure 139/82, ventilator setting-assist control, tidal volume 500, FiO2 35%, pressure 18, SPO2 97% intake/output-5282/1300. Exam General Appearance: sedated, intubated Respiratory: normal breath sounds, chest non-tender Cardiovascular: regular rate/rhythm Gastrointestinal: soft, non-tender Extremities: normal inspection, normal capillary refill, normal range of motion Current Medications: Current Medications Sig/Minerva Start time Last Medication Dose Route Stop Time Status Admin Acetaminophen 500 MG Q6-PRN PRN 01/07 1530 01/07 IV 2100 Ampicillin Sodium/ 1,500 MG Q6H 01/07 0600 01/08 Sulbactam Sodium IV 0548 Sodium Chloride 100 ML Cyanocobalamin/ 1 BAG DAILY 01/07 09 01/07 Thiamine/Pyridoxine IV 0935 Dextrose/Water 1,000 ML Dextrose/Sodium 1,000 ML .[id number] 01/07 0130 01/08 Chloride IV 0548 Enoxaparin Sodium 40 MG DAILY 01/07 0900 01/08 SC 0751 Folic Acid 1 MG DAILY 01/07 0900 DC PO 01/09 0901 Lorazepam 100 MG Q10H 01/07 1145 01/07 Sodium Chloride 1,000 ML IV 2148 Lorazepam 50 MG Q24H 01/07 0430 DC 01/07 Sodium Chloride 500 ML IV 0426 Magnesium Sulfate 1 GM Q2H 01/08 0645 01/08 Dextrose/Water 100 ML IV 01/08 1044 0645 Magnesium Sulfate 1 GM ONCE ONE 01/07 0645 DC 01/07 Dextrose/Water 100 ML IV 01/07 1044 0645 Multivitamins 1 TAB DAILY 01/07 0900 DC PO Pantoprazole Sodium 40 MG DAILY 01/07 0900 AC 01/08 IV 0749 Phosphate 250 MG BID 01/07 2100 AC 01/08 PO 0750 Potassium Chloride 40 MEQ ONCE ONE 01/08 0645 DC 01/08 PO 01/08 0646 0650 Potassium Phosphate 15 mMol ONE ONE 01/07 1845 DC 01/07 Sodium Chloride 250 ML IV 01/07 2249 2021 Silver Sulfadiazine 1 PRIYA Q12 01/07 1044 AC 01/08 TOP 0751 Thiamine HCl 100 MG DAILY 01/07 09 CAN PO 01/09 09 Impression/Plan Impression/Problem List Impression: Patient is a 37-year-old male, recently discharged from [facility] on Dec 01 2017, and treated for suicidal attempt (Serequil), BIBA from home after another suicidal attempt to overdose on olanzapine 20 milligrams, melatonin, trazodone 100 milligrams. According to EMS 70, pills were missing- since last fill date. At the time of presentation, he was slightly irritated, and slowly responding to all verbal commands. His temperature 98.0, pulse 131, respiratory 26, blood pressure 144/109, CO2 94% one 100% nonrebreather. Blood work up showed WBC 7.8, hemoglobin 17 point 3, hematocrit 40 8.4, platelet count 240, no band cells, serum sodium 143, potassium 4.1, chloride 106, carbon dioxide 18, anion gap 19, BUN 15, creatinine 1.0, glucose 102, LFT-normal, troponin I less than 0.01, U tox was positive for the cocaine. He was diaphoretic and nauseous, so IV normal saline, Zofran were given. Later he desaturated to 88% on 3 liters, so kept on 100% nonrebreather. As he was irritable and pulling mask, soft restraint were placed. He continued to have tachycardia in range of 130-140, tachypnea range of 20 to 28. Intermittently patient was drowsy and irritable. He started snoring, having tremors,he was given Ativan 2 milligrams. He initially straight cath followed by 100 mL urine output, later become incontinent.He had bleeding from the right nostril after removal of nasal trumpet. Patient become more drowsy and not able to hold secretion, his chest x-ray did show evidence of right lower lobe aspiration pneumonia. It was decided that he needs elective intubation. Off note. Poison control, psych crisis, is aware of the patient's situation. Overnight team tried to call the family without any response. ED course - Vital signs at the time of admission -temperature 98.0, pulse 131, respiratory 26, blood pressure 144/109, CO2 94% one 100% nonrebreather. Blood workup showed -WBC 7.8, hemoglobin 17 point 3, hematocrit 40 8.4, platelet count 240, no band cells, serum sodium 143, potassium 4.1, chloride 106, carbon dioxide 18, anion gap 19, BUN 15, creatinine 1.0, glucose 102, LFT-normal, troponin I less than 0.01, U tox was positive for the cocaine. Head CT -No acute intracranial pathology. CXR -mild persistent elevation of the right hemidiaphragm. CTA,CT Abd/Pelvis - 1. Aspiration pneumonia in the right lower lobe, characterized by patchy consolidation with opacification of the lower lobe bronchi. 2. No evidence of pulmonary emboli. 3. No acute intra-abdominal or intrapelvic abnormalities. Assessment and plan- Suicidal attempt by taking large amount of pills(?70) of trazodone/olanzapine - * will continue patient on endotracheal intubation, ventilation, IV Ativan drip, IV fluids - decreased to 75c/hr * Head end of the bed elevation. * Strict intake output charting. * Tylenol for the fever Right middle lobe aspiration Pneumonia - resp culture ? MRSA * Continue unasyn * Started on Vancomycin Alcohol use disorder - * CIWA score * Patient already on Ativan drip Cocaine use disorder * Avoid beta blockers CODE STATUS -full code DVT prophylaxis - alps/heparin Diet -NPO, we will start tube feeding from tmr. Problem List: 1. Suicide attempt 2. Polysubstance abuse Pain Ratin Pain Location: n/a Tomorrow's Labs & Rationales: f/u CBC, ICU bundle Plan DVT/Prophylaxis: mechanical, pharmacological Tank Park MD 01/08/18 0927: Attending MD Review Statement Attending Sign Off Attending Cosign Statement: I have: examined this patient, reviewed [employer] EMR data, personally reviewd images, discussd w/resident/PA/POLITICAL ORGANIZER, discussed mgmt plan w/anuj, discussed mgmt plan w/CM, discussed mgmt plan w/pt, agreed w/resident/PA/POLITICAL ORGANIZER, amended to note. Other Findings: Impression 37 year old man * significant psychiatric history of anxiety/depression/bipolar d/o and suicidal attempt, admitted to the ICU with an overdose of multiple medications mostly trazadone per records * aspiration pneumonia with fever and RLL opacity Plan Respiratory/ID -RLL opacity, unasyn for coverage -sputum culture -continue mechanical ventilation given sedation/ativan requirements CVS -hemodynamic monitoring -will periodically monitor QT Heme -coags next blood draw Metabolic -ins/outs -replete electrolytes -on ativan gtt -trend lfts Alimentary -NPO Neuro -will require crisis/psych - will alert of admission and should be seen once extubated -ativan gtt - will titrate DVT prophylaxis at all times TTS 35 min
[2018-01-08 08:00] VITALS: BP 126/80
--- NOTE | 2018-01-08 08:10 | RADIOLOGY REPORT ---
EXAMINATION: XR PORTABLE CHEST CLINICAL INFORMATION: Respiratory distress. X-ray while intubated. COMPARISON: Several prior chest x-rays, most recent of which are dated 01/07/2018. TECHNIQUE: Portable AP semierect view of the chest was obtained. FINDINGS: Evaluation is limited. The patient was agitated and technologist's states this is the best possible images obtainable in this circumstance. EKG leads overlie the chest. The patient is rotated and the lung apices are not included. An enteric tube is seen coursing into the abdomen with tip not included. Endotracheal tube is not included in the [id number] of this exam. The cardiomediastinal silhouette is similar to prior studies. Low lung volumes are seen with mild central vascular congestion. No overt pulmonary edema, focal consolidation or definite pneumothorax is seen. IMPRESSION: Limited exam. Endotracheal tube not included. Low lung volumes and central vascular congestion noted. No new focal pulmonary findings.
--- NOTE | 2018-01-08 12:44 | RADIOLOGY REPORT ---
EXAMINATION: XR PORTABLE CHEST CLINICAL INFORMATION: Respiratory distress. X-ray while intubated. Extra secretions and desaturation. COMPARISON: Multiple prior chest x-rays, most recent of which is from earlier today. CT scan of the chest dated 01/06/2018. TECHNIQUE: Portable AP semierect view of the chest was obtained. FINDINGS: EKG leads overlie the chest. Endotracheal tube is in place with tip 5.9 cm above the josue. Enteric tube courses into the abdomen with tip not included. The cardiomediastinal silhouette is borderline enlarged, likely due to the AP semierect positioning. There is consolidation seen in the right mid and lower lung, not well appreciated on prior chest x-rays but corresponding to the patchy parenchymal opacity seen on CT scan in the right lower lobe and dependent portion of the right upper lobe. Mild reticular subsegmental atelectatic changes as seen in the left lung base. No significant pleural effusion or pneumothorax is seen. Bony structures are grossly unremarkable. IMPRESSION: 1. Endotracheal tube tip 5.9 cm above the josue. 2. Borderline enlarged cardiac silhouette. 3. Patchy parenchymal opacities in the right mid and lower lung, suspicious for pneumonia and/or atelectasis, similar to appearance on CT scan from 01/06/2018. 4. Mild atelectatic changes left lung base.
[2018-01-08 16:00] VITALS: BP 138/80
[2018-01-09] VITALS: BP 136/82
[2018-01-09 04:48] LABS: ABSOLUTE BASOPHIL COUNT 0 /CUMM (0.0-0.2); ABSOLUTE EOSINOPHIL COUNT 0.3 /CUMM (0.0-0.7); ABSOLUTE GRANULOCYTE CT 3.3 /CUMM (1.4-6.5); ABSOLUTE LYMPH COUNT 0.9 /CUMM (1.2-3.4); ABSOLUTE MONOCYTE COUNT 0.4 /CUMM (0.10-0.60); BASOPHIL % 0.2 % (0.0-2.0); EOSINOPHIL % 5.5 % (0-5); HEMATOCRIT 35.2 % (42-52); MEAN CORPUSCULAR HGB 31.6 PG (27.0-31.0); MEAN CORPUSCULAR HGB CONC 34.7 G/DL (33.0-37.0); MEAN CORPUSCULAR VOLUME 91.3 FL (80.0-94.0); MEAN PLATELET VOLUME 6.3 FL (7.4-10.4); PLATELET COUNT 201 /CUMM (130-400); RBC DISTRIBUTION WIDTH 12.7 % (11.5-14.5); RED BLOOD CELL CT 3.85 /CUMM (4.70-6.10); WHITE BLOOD CELL COUNT 4.9 /CUMM (4.8-10.8)
[2018-01-09 08:00] VITALS: BP 170/100
--- NOTE | 2018-01-09 09:07 | RADIOLOGY REPORT ---
EXAMINATION: XR PORTABLE CHEST CLINICAL INFORMATION: ET tube placement. COMPARISON: Chest done on 01/08/2018. TECHNIQUE: Portable frontal view of the chest was obtained. FINDINGS: The tip of the endotracheal tube is located approximately 5.7 cm above the level of the josue. Nonspecific airspace opacities noted at right lower lobe of the lung, appear improved since prior study. The remainder of the lung cantor remain clear. The cardiomediastinal silhouette is borderline enlarged, could be positioning and technique, unchanged. There is no pleural effusion present. The visualized upper abdomen is unremarkable. IMPRESSION: 1. Interval improved aeration at right lower lobe of the lung. 2. The tip of the endotracheal tube is located approximately 5.7 cm above the level of the josue. 3. No new abnormalities.
--- NOTE | 2018-01-09 09:47 | PN- Resident CRCU ---
Stefano PRIETO,Luz Marina 01/09/18 0947: Subjective HPI/CRCU Issues: Patient is seen and examined at the bedside. Today medical team decided to wean him off from the lorazepam drip and also try to weaning the ventilator. 24 Hour Events: Vital signs-T-max 99.1, heart rate 70, sinus rhythm, respiratory rate 18, blood pressure 160/90, on ventilator assist control mode with respiratory rate of 18, tidal volume 500, FiO2 35% saturating 98%. Intake/output -1246/1255 Objective Vital Signs & I&O Last 8 Hrs of Vitals and I&O: Vital signs-T-max 99.1, heart rate 70, sinus rhythm, respiratory rate 18, blood pressure 160/90, on ventilator assist control mode with respiratory rate of 18, tidal volume 500, FiO2 35% saturating 98%. Exam General Appearance: sedated, intubated Respiratory: normal breath sounds, chest non-tender, crackles, right middle and lower lobe crackles Cardiovascular: regular rate/rhythm Gastrointestinal: soft, non-tender Extremities: normal inspection, normal capillary refill Current Medications: Current Medications Sig/Minerva Start time Last Medication Dose Route Stop Time Status Admin Acetaminophen 500 MG Q6-PRN PRN 01/07 1530 AC 01/07 IV 2100 Albuterol Sulfate 3 ML Q6P PRN 01/09 1000 AC INH Ampicillin Sodium/ 1,500 MG Q6H 01/07 0600 AC 01/09 Sulbactam Sodium IV 1228 Sodium Chloride 100 ML Artificial Tears 2 GTT TID 01/08 09 AC 01/09 OPH 1400 Chlordiazepoxide HCl 75 MG Q4 01/09 1000 AC 01/09 PO 1359 Cyanocobalamin/ 1 BAG DAILY 01/07 0901/09 Thiamine/Pyridoxine IV 1038 Dextrose/Water 1,000 ML Dextrose/Sodium 1,000 ML .[id number] 01/07 0130 AC 01/09 Chloride IV 0512 Enoxaparin Sodium 40 MG DAILY 01/07 0901/09 SC 0910 Erythromycin 1 PRIYA 4 TIMES/DAY 01/08 0901/09 OPH 1703 Ipratropium [place] 2.5 ML TID 01/09 0951 AC INH Lorazepam 2 MG Q6 01/09 1200 CAN PO Lorazepam 100 MG Q10H 01/09 0601/09 Sodium Chloride 1,000 ML IV 1444 Lorazepam 100 MG Q11H 01/08 2100 DC Sodium Chloride 1,000 ML IV 01/09 0559 Lorazepam 100 MG Q10H 01/07 1145 DC 01/08 Sodium Chloride 1,000 ML IV 01/08 Magnesium Sulfate 1 GM ONCE ONE 01/09 0745 DC 01/09 Dextrose/Water 100 ML IV 01/09 1144 0909 Pantoprazole Sodium 40 MG DAILY 01/07 0900 AC 01/09 IV 0905 Phosphate 250 MG BID 01/07 2100 DC 01/09 PO 01/09 0901 0913 Potassium Chloride 40 MEQ BID 01/09 0750 DC 01/09 PO 01/09 0901 1038 CXR Findings: 1. Interval improved aeration at right lower lobe of the lung. 2. The tip of the endotracheal tube is located approximately 5.7 cm above the level of the josue. 3. No new abnormalities. Impression/Plan Impression/Problem List Impression: Patient is a 37-year-old male, recently discharged from [facility] on Dec 01 2017, and treated for suicidal attempt (Serequil), BIBA from home after another suicidal attempt to overdose on olanzapine 20 milligrams, melatonin, trazodone 100 milligrams. According to EMS 70, pills were missing- since last fill date. At the time of presentation, he was slightly irritated, and slowly responding to all verbal commands. His temperature 98.0, pulse 131, respiratory 26, blood pressure 144/109, CO2 94% one 100% nonrebreather. Blood work up showed WBC 7.8, hemoglobin 17 point 3, hematocrit 40 8.4, platelet count 240, no band cells, serum sodium 143, potassium 4.1, chloride 106, carbon dioxide 18, anion gap 19, BUN 15, creatinine 1.0, glucose 102, LFT-normal, troponin I less than 0.01, U tox was positive for the cocaine. He was diaphoretic and nauseous, so IV normal saline, Zofran were given. Later he desaturated to 88% on 3 liters, so kept on 100% nonrebreather. As he was irritable and pulling mask, soft restraint were placed. He continued to have tachycardia in range of 130-140, tachypnea range of 20 to 28. Intermittently patient was drowsy and irritable. He started snoring, having tremors,he was given Ativan 2 milligrams. He initially straight cath followed by 100 mL urine output, later become incontinent.He had bleeding from the right nostril after removal of nasal trumpet. Patient become more drowsy and not able to hold secretion, his chest x-ray did show evidence of right lower lobe aspiration pneumonia. It was decided that he needs elective intubation. Off note. Poison control, psych crisis, is aware of the patient's situation. Overnight team tried to call the family without any response. ED course - Vital signs at the time of admission -temperature 98.0, pulse 131, respiratory 26, blood pressure 144/109, CO2 94% one 100% nonrebreather. Blood workup showed -WBC 7.8, hemoglobin 17 point 3, hematocrit 40 8.4, platelet count 240, no band cells, serum sodium 143, potassium 4.1, chloride 106, carbon dioxide 18, anion gap 19, BUN 15, creatinine 1.0, glucose 102, LFT-normal, troponin I less than 0.01, U tox was positive for the cocaine. Head CT -No acute intracranial pathology. CXR -mild persistent elevation of the right hemidiaphragm. CTA,CT Abd/Pelvis - 1. Aspiration pneumonia in the right lower lobe, characterized by patchy consolidation with opacification of the lower lobe bronchi. 2. No evidence of pulmonary emboli. 3. No acute intra-abdominal or intrapelvic abnormalities. Assessment and plan- Suicidal attempt by taking large amount of pills(?70) of trazodone/olanzapine - Plan is to wean * will continue to wean the patient from ventilation, IV Ativan drip. * We will start patient on Tab Librium 75mg Q4 * Advised for CPAP trial in between. * Neb - Ipratropium, Albuterol * Continue IV fluids - 75c/hr * Head end of the bed elevation. * Strict intake output charting. * Tylenol for the fever * Will call psyche once patient is extubated Right middle lobe aspiration Pneumonia - resp culture MSSA * Continue unasyn(01/07/2018 - 01/13/2018) * Stop Vancomycin Abnormal electrolyte -Low K/Mg - * Supplemented with oral K 40Meq, and Mg 1gm IV state. Alcohol use disorder - * Stop CIWA score * Patient already on Ativan drip Cocaine use disorder * Avoid beta blockers CODE STATUS -full code DVT prophylaxis - alps/heparin Diet -NPO, we will start tube feeding after weaning. Problem List: 1. Aspiration pneumonia 2. Polysubstance abuse 3. Suicide attempt Pain Ratin Tomorrow's Labs & Rationales: f/u CBC, ICU bundle Plan DVT/Prophylaxis: mechanical, pharmacological Tank Park MD 01/09/18 0948: Attending MD Review Statement Attending Sign Off Attending Cosign Statement: I have: examined this patient, reviewed aval EMR data, personally reviewd images, discussd w/resident/PA/MOLD COOLER, discussed mgmt plan w/anuj, discussed mgmt plan w/CM, discussed mgmt plan w/pt, agreed w/resident/PA/MOLD COOLER, amended to note. Other Findings: Impression 37 year old man * significant psychiatric history of anxiety/depression/bipolar d/o and suicidal attempt, admitted to the ICU with an overdose of multiple medications mostly trazadone per records * aspiration pneumonia with fever and RLL opacity Plan Respiratory/ID -CPAP trials -RLL opacity, unasyn for coverage -sputum culture -continue mechanical ventilation given sedation/ativan requirements CVS -hemodynamic monitoring -will periodically monitor QT Heme -stable Metabolic -ins/outs -replete electrolytes -on ativan gtt -add librium Alimentary -NPO Neuro -will require crisis/psych - will alert of admission and should be seen once extubated -ativan gtt - will titrate DVT prophylaxis at all times TTS 35 min
[2018-01-09 15:27] VITALS: BP 159/91
--- NOTE | 2018-01-09 17:10 | Transfer of Care Summary ---
Hospital Course Course Hospital Course: Patient is a 37-year-old male, recently discharged from [facility] on Dec 01 2017, and treated for suicidal attempt (Sermalathi), KENNY from home after another suicidal attempt to overdose on olanzapine 20 milligrams, melatonin, trazodone 100 milligrams. According to EMS 70, pills were missing- since last fill date. At the time of presentation, he was slightly irritated, and slowly responding to all verbal commands. His temperature 98.0, pulse 131, respiratory 26, blood pressure 144/109, CO2 94% one 100% nonrebreather. Blood work up showed WBC 7.8, hemoglobin 17 point 3, hematocrit 40 8.4, platelet count 240, no band cells, serum sodium 143, potassium 4.1, chloride 106, carbon dioxide 18, anion gap 19, BUN 15, creatinine 1.0, glucose 102, LFT-normal, troponin I less than 0.01, U tox was positive for the cocaine. He was diaphoretic and nauseous, so IV normal saline, Zofran were given. Later he desaturated to 88% on 3 liters, so kept on 100% nonrebreather. As he was irritable and pulling mask, soft restraint were placed. He continued to have tachycardia in range of 130-140, tachypnea range of 20 to 28. Intermittently patient was drowsy and irritable. He started snoring, having tremors,he was given Ativan 2 milligrams. He initially straight cath followed by 100 mL urine output, later become incontinent.He had bleeding from the right nostril after removal of nasal trumpet. Patient become more drowsy and not able to hold secretion, his chest x-ray did show evidence of right lower lobe aspiration pneumonia. It was decided that he needs elective intubation. Off note. Poison control, psych crisis, is aware of the patient's situation. Overnight team tried to call the family without any response. ED course - Vital signs at the time of admission -temperature 98.0, pulse 131, respiratory 26, blood pressure 144/109, CO2 94% one 100% nonrebreather. Blood workup showed -WBC 7.8, hemoglobin 17 point 3, hematocrit 40 8.4, platelet count 240, no band cells, serum sodium 143, potassium 4.1, chloride 106, carbon dioxide 18, anion gap 19, BUN 15, creatinine 1.0, glucose 102, LFT-normal, troponin I less than 0.01, U tox was positive for the cocaine. Head CT -No acute intracranial pathology. CXR -mild persistent elevation of the right hemidiaphragm. CTA,CT Abd/Pelvis - 1. Aspiration pneumonia in the right lower lobe, characterized by patchy consolidation with opacification of the lower lobe bronchi. 2. No evidence of pulmonary emboli. 3. No acute intra-abdominal or intrapelvic abnormalities. Assessment and plan- Suicidal attempt by taking large amount of pills(?70) of trazodone/olanzapine Right middle lobe aspiration Pneumonia - resp culture ? MSSA Alcohol use disorder Cocaine use disorder
--- NOTE | 2018-01-09 23:42 | Event Note ---
Event Note Event Note: I was notified by nursing staff that the patient is increasingly getting agitated, including frequently biting on his ET tube, was pulling on his tubes, making the ongoing treatment very unsafe with risks of bleeding, falling, disrupting ventilation, damaging vocal cords to mention a few. He is already receiving IV Ativan at the rate of 15 mg per hour, and had received a dose of chlordiazepoxide via OG tube earlier as we were trying to wean him off benzos slowly. Given his condition, the patient still requires further medication for agitation , thus his QTC was rechecked with a press EKG which showed QTc to be in 460s thus one time dose of IV Haldol 5 mg IM was given. After reasonable period of time, the effect did not to be significant on the patient. I spoke with Dr. Park, and updated him about the situation, including my impression that this is not a seizure and the patient is still withdrawing. Dr. Park suggested increasing the rate of IV Ativan if that's not helping to 30 mg per hour for now, and the next plan of action would be to start the patient on IV propofol. Orders placed accordingly and the nursing staff updated as well. Patient was agitated later again and was given IV Ativan 2 mg STAT but it did not change his status and after considering the risk of increasing the rate of ativan drip (metabolic acidosis), we started the patient on IV Propofol.
[2018-01-10] VITALS: BP 168/84
--- NOTE | 2018-01-10 00:02 | RADIOLOGY REPORT ---
EXAMINATION: XR PORTABLE CHEST CLINICAL INFORMATION: Confirmed correct placement of oral gastric tube COMPARISON: Prior chest performed earlier same day TECHNIQUE: Portable frontal view of the chest was obtained. FINDINGS: Lines and tubes: Although technique is limiting the orogastric tube is noted in the region of the stomach. The tip is difficult to identify with certainty but appears to be just left of the midline. The ET tube was done with the tip 4.2 cm above the josue The left costophrenic angle is outside the [id number] with examination. There is persistent opacity at the right base unchanged compatible with atelectasis or pneumonia IMPRESSION: Exam is slightly limiting because of technique. However the orogastric tube tip appears to be in place in the region of the stomach
[2018-01-10 06:11] LABS: ABSOLUTE BASOPHIL COUNT 0 /CUMM (0.0-0.2); ABSOLUTE EOSINOPHIL COUNT 0.3 /CUMM (0.0-0.7); ABSOLUTE GRANULOCYTE CT 2.9 /CUMM (1.4-6.5); ABSOLUTE LYMPH COUNT 1.2 /CUMM (1.2-3.4); ABSOLUTE MONOCYTE COUNT 0.5 /CUMM (0.10-0.60); BASOPHIL % 0.3 % (0.0-2.0); EOSINOPHIL % 5.6 % (0-5); GRANULOCYTE % 60.7 % (42.2-75.2); MEAN CORPUSCULAR HGB 31.7 PG (27.0-31.0); MEAN CORPUSCULAR HGB CONC 35.1 G/DL (33.0-37.0); MEAN CORPUSCULAR VOLUME 90.2 FL (80.0-94.0); MEAN PLATELET VOLUME 6.4 FL (7.4-10.4); PLATELET COUNT 249 /CUMM (130-400); RBC DISTRIBUTION WIDTH 12.6 % (11.5-14.5); RED BLOOD CELL CT 3.87 /CUMM (4.70-6.10); WHITE BLOOD CELL COUNT 4.9 /CUMM (4.8-10.8)
[2018-01-10 08:00] VITALS: BP 142/80
--- NOTE | 2018-01-10 08:15 | PN- Resident CRCU ---
Janet Thomas Jace Portilloie 01/10/18 0815: Subjective HPI/CRCU Issues: Patient is seen and examined at the bedside. Overnight patient got agitated possibly related to withdrawing, IV ativan rate was increased to 30mg/hr however not helping, propofol was started than at 5mg/ hr to achieve adequate sedation. NGT replaced, pending CXR confirmation. Objective Vital Signs & I&O Last 8 Hrs of Vitals and I&O: Intake & Output 01/10 1600 01/10 0800 01/10 0000 Intake Total 1891 2150 Output Total 2525 2350 Balance -634 -200 Intake, IV 1890 2009 Intake, Tube 140 Irrigant Number 0 Bowel Movements Output, 300 Gastric Drainage Output, Urine 2225 2350 Patient 113.852 kg Weight Weight Bed scale Measurement Method Exam General Appearance: sedated Head: atraumatic, normal appearance Respiratory: chest non-tender, on vent A/C Cardiovascular: regular rate/rhythm Gastrointestinal: soft, non-tender, decreased BS Extremities: no edema Weaning Parameters NIF: 24 Current Medications: Current Medications Sig/Minerva Start time Last Medication Dose Route Stop Time Status Admin Acetaminophen 500 MG Q6-PRN PRN 01/07 1530 AC 01/07 IV 2100 Albuterol Sulfate 3 ML Q6P PRN 01/09 1000 AC INH Ampicillin Sodium/ 1,500 MG Q6H 01/07 0600 AC 01/10 Sulbactam Sodium IV 0604 Sodium Chloride 100 ML Artificial Tears 2 GTT TID 01/08 0900 AC 01/09 OPH 2127 Chlordiazepoxide HCl 75 MG Q4 01/09 1000 AC 01/09 PO 2122 Cyanocobalamin/ 1 BAG DAILY 01/07 09 AC 01/09 Thiamine/Pyridoxine IV 1038 Dextrose/Water 1,000 ML Dextrose/Sodium 1,000 ML .[id number] 01/07 0130 AC 01/09 Chloride IV 1930 Enoxaparin Sodium 40 MG DAILY 01/07 09 AC 01/09 SC 0910 Erythromycin 1 PRIYA 4 TIMES/DAY 01/08 09 AC 01/09 OPH 2128 Haloperidol 5 MG ONCE ONE 01/09 2245 DC 01/09 IM 01/09 2246 2241 Ipratropium [place] 2.5 ML TID 01/09 0951 AC INH Lorazepam 100 MG Q6H 01/10 1100 AC Sodium Chloride 1,000 ML IV Lorazepam 2 MG Q6 01/09 1200 CAN PO Lorazepam 100 MG Q10H 01/09 0600 DC 01/10 Sodium Chloride 1,000 ML IV 0350 Magnesium Sulfate 1 GM ONCE ONE 01/09 0745 DC 01/09 Dextrose/Water 100 ML IV 01/09 1144 0909 Non-Formulary 0 SEE ADMIN CRITERIA 01/10 0115 CAN Medication ANY Pantoprazole Sodium 40 MG DAILY 01/07 0900 AC 01/09 IV 0905 Phosphate 250 MG BID 01/07 2100 DC 01/09 PO 01/09 0901 0913 Potassium Chloride 40 MEQ BID 01/09 0750 DC 01/09 PO 01/09 0901 1038 Propofol 1,000 MG Q24H 01/10 0130 AC 01/10 N/A 1 UNIT IV 0132 Impression/Plan Impression/Problem List Impression: Patient is a 37-year-old male, recently discharged from [facility] on Dec 01 2017, and treated for suicidal attempt ([place]), BIBA from home after another suicidal attempt to overdose on olanzapine 20 milligrams, melatonin, trazodone 100 milligrams. According to EMS 70, pills were missing- since last fill date. At the time of presentation, he was slightly irritated, and slowly responding to all verbal commands. His temperature 98.0, pulse 131, respiratory 26, blood pressure 144/109, CO2 94% one 100% nonrebreather. Blood work up showed WBC 7.8, hemoglobin 17 point 3, hematocrit 40 8.4, platelet count 240, no band cells, serum sodium 143, potassium 4.1, chloride 106, carbon dioxide 18, anion gap 19, BUN 15, creatinine 1.0, glucose 102, LFT-normal, troponin I less than 0.01, U tox was positive for the cocaine. He was diaphoretic and nauseous, so IV normal saline, Zofran were given. Later he desaturated to 88% on 3 liters, so kept on 100% nonrebreather. As he was irritable and pulling mask, soft restraint were placed. He continued to have tachycardia in range of 130-140, tachypnea range of 20 to 28. Intermittently patient was drowsy and irritable. He started snoring, having tremors,he was given Ativan 2 milligrams. He initially straight cath followed by 100 mL urine output, later become incontinent.He had bleeding from the right nostril after removal of nasal trumpet. Patient become more drowsy and not able to hold secretion, his chest x-ray did show evidence of right lower lobe aspiration pneumonia. It was decided that he needs elective intubation. Off note. Poison control, psych crisis, is aware of the patient's situation. Overnight team tried to call the family without any response. ED course - Vital signs at the time of admission -temperature 98.0, pulse 131, respiratory 26, blood pressure 144/109, CO2 94% one 100% nonrebreather. Blood workup showed -WBC 7.8, hemoglobin 17 point 3, hematocrit 40 8.4, platelet count 240, no band cells, serum sodium 143, potassium 4.1, chloride 106, carbon dioxide 18, anion gap 19, BUN 15, creatinine 1.0, glucose 102, LFT-normal, troponin I less than 0.01, U tox was positive for the cocaine. Head CT -No acute intracranial pathology. CXR -mild persistent elevation of the right hemidiaphragm. CTA,CT Abd/Pelvis - 1. Aspiration pneumonia in the right lower lobe, characterized by patchy consolidation with opacification of the lower lobe bronchi. 2. No evidence of pulmonary emboli. 3. No acute intra-abdominal or intrapelvic abnormalities. Assessment and plan- Suicidal attempt by taking large amount of pills(?70) of trazodone/olanzapine - Plan is to wean * will continue to wean the patient from ventilation, however, due to increased agitation overnight 01/09, patient again being kept on IV Ativan drip 30mg/hr + IV propofol 5mcg/hr. Unsafe to extubate * Keep on Librium 75mg Q4 * Neb - Ipratropium, Albuterol * Continue D5w half NS- 75c/hr * Head end of the bed elevation. * Strict intake output charting. * Tylenol for the fever * Will call psych once patient is extubated Right middle lobe aspiration Pneumonia - resp culture MSSA * Continue unasyn (01/07/2018 - 01/13/2018) * Stopped Vancomycin Abnormal electrolyte -Low K/Mg - * Supplemented with oral K 40Meq, and Mg 1gm IV state. Alcohol use disorder - * Stop CIWA score * Patient already on Ativan drip Cocaine use disorder * Avoid beta blockers CODE STATUS -full code DVT prophylaxis - alps/heparin Diet -NPO, we will start tube feeding after weaning. Problem List: 1. Aspiration pneumonia 2. Polysubstance abuse 3. Mental status change Pain Ratin Tomorrow's Labs & Rationales: ICU/CBC Plan DVT/Prophylaxis: mechanical, pharmacological Tank Park MD 01/10/18 0850: Attending MD Review Statement Attending Sign Off Attending Cosign Statement: I have: examined this patient, reviewed aval EMR data, personally reviewd images, discussd w/resident/PA/CIVIL ENGINEERING DESIGN DRAFTSPERSON, discussed mgmt plan w/anuj, discussed mgmt plan w/CM, discussed mgmt plan w/pt, agreed w/resident/PA/CIVIL ENGINEERING DESIGN DRAFTSPERSON, amended to note. Other Findings: Impression 37 year old man * Drug overdose/suicide attempt - significant psychiatric history of anxiety/ depression/bipolar d/o and suicidal attempt, admitted to the ICU with an overdose of multiple medications mostly trazadone per records * also treating for likely etoh withdrawal in the setting of dependence * aspiration pneumonia and RLL opacity Plan Respiratory/ID -patient requiring higher doses of sedation due to irritability and agitation, due to increased sedation, not safe to extubate as of yet, will sedate further given likely withdrawal state, will resume CPAP trials once more cooperative -RLL opacity, unasyn for coverage -sputum culture -continue mechanical ventilation given sedation/ativan requirements CVS -hemodynamic monitoring -will periodically monitor QT Heme -stable Metabolic -ins/outs -replete electrolytes -on ativan gtt -continue librium -propofol added - check lipase tomorrow and CK Alimentary -begin tube feeds, nutrition input -monitor for residuals Neuro -will require crisis/psych - will alert of admission and should be seen once extubated -ativan, propofol, librium DVT prophylaxis at all times TTS 35 min
--- NOTE | 2018-01-10 09:27 | RADIOLOGY REPORT ---
EXAMINATION: XR PORTABLE CHEST CLINICAL INFORMATION: ET tube placement. COMPARISON: Several prior chest x-rays, most recent of which is dated 01/09/2018. TECHNIQUE: Portable frontal view of the chest was obtained on 2 images. FINDINGS: Endotracheal tube tip is approximately 6 cm above the josue. Enteric tube courses into the abdomen with tip poorly visualized, likely in the left upper quadrant, superimposed upon the gastric fundus/body junction. EKG leads overlie the chest. The cardiomediastinal silhouette is enlarged. Low lung volumes are seen with central vascular congestion. Bibasilar atelectatic changes are noted. No significant large effusion. No pneumothorax. Bony structures grossly unremarkable. IMPRESSION: 1. Endotracheal tube tip approximately 6 cm above the josue. 2. Enteric tube courses into the abdomen with tip likely superimposed upon the gastric body/fundus junction. Evaluation is limited. 3. Low lung volumes and central vascular congestion. 4. Bibasilar opacities, likely due to atelectasis, unchanged.
[2018-01-10 16:00] VITALS: BP 144/68
[2018-01-11] VITALS: BP 153/85
[2018-01-11 05:57] LABS: ABSOLUTE BASOPHIL COUNT 0 /CUMM (0.0-0.2); ABSOLUTE EOSINOPHIL COUNT 0.3 /CUMM (0.0-0.7); ABSOLUTE GRANULOCYTE CT 3.1 /CUMM (1.4-6.5); ABSOLUTE LYMPH COUNT 1.3 /CUMM (1.2-3.4); ABSOLUTE MONOCYTE COUNT 0.4 /CUMM (0.10-0.60); BASOPHIL % 0.3 % (0.0-2.0); EOSINOPHIL % 5.5 % (0-5); GRANULOCYTE % 61.2 % (42.2-75.2); HEMATOCRIT 36.5 % (42-52); MEAN CORPUSCULAR HGB 31.6 PG (27.0-31.0); MEAN CORPUSCULAR HGB CONC 35.2 G/DL (33.0-37.0); MEAN CORPUSCULAR VOLUME 89.8 FL (80.0-94.0); MEAN PLATELET VOLUME 6.2 FL (7.4-10.4); PLATELET COUNT 258 /CUMM (130-400); RBC DISTRIBUTION WIDTH 12.5 % (11.5-14.5); RED BLOOD CELL CT 4.07 /CUMM (4.70-6.10); WHITE BLOOD CELL COUNT 5.1 /CUMM (4.8-10.8)
[2018-01-11 08:00] VITALS: BP 148/80
--- NOTE | 2018-01-11 08:20 | PN- Resident CRCU ---
MishabernardoliviaJudy 01/11/18 0820: Subjective HPI/CRCU Issues: Seen and examined patient. Intubated and sedated. Continues to be agitated per nursing overnight. 24 Hour Events: Ventilator settings VCVAC: Tidal volume 500, FiO2 30, respiratory rate 18, PEEP 5 On tube feeds at 55 mL/h Sedation: Propofol at 20 mL/h, Ativan 14/h Objective Vital Signs & I&O Last 8 Hrs of Vitals and I&O: Laboratory Tests 01/11 0515 Chemistry Sodium (137 - 145 mmol/L) 141 Potassium (3.5 - 5.1 mmol/L) 3.9 Chloride (98 - 107 mmol/L) 109 H Carbon Dioxide (22 - 30 mmol/L) 21 L Anion Gap (5 - 16) 11 BUN (9 - 20 mg/dL) 4 L Creatinine (0.7 - 1.2 mg/dL) 0.8 Estimated GFR (>60 ml/min) > 60 Glucose (65 - 99 mg/dL) 94 Calcium (8.4 - 10.2 mg/dL) 8.2 L Phosphorus (2.5 - 4.5 mg/dL) 3.4 Magnesium (1.6 - 2.3 mg/dL) 1.7 Total Bilirubin (0.2 - 1.3 mg/dL) 0.4 AST (17 - 59 U/L) 12 L ALT (21 - 72 U/L) 29 Creatine Kinase (55 - 170 U/L) 81 Albumin (3.5 - 5.0 g/dL) 2.8 L Lipase (23 - 300 U/L) 206 Hematology CBC w Diff NO MAN DIFF REQ WBC (4.8 - 10.8 /CUMM) 5.1 RBC (4.70 - 6.10 /CUMM) 4.07 L Hgb (14.0 - 18.0 G/DL) 12.9 L Hct (42 - 52 %) 36.5 L MCV (80.0 - 94.0 FL) 89.8 MCH (27.0 - 31.0 PG) 31.6 H MCHC (33.0 - 37.0 G/DL) 35.2 RDW (11.5 - 14.5 %) 12.5 Plt Count (130 - 400 /CUMM) 258 MPV (7.4 - 10.4 FL) 6.2 L Gran % (42.2 - 75.2 %) 61.2 Lymphocytes % (20.5 - 51.1 %) 24.5 Monocytes % (1.7 - 9.3 %) 8.5 Eosinophils % (0 - 5 %) 5.5 H Basophils % (0.0 - 2.0 %) 0.3 Absolute Granulocytes (1.4 - 6.5 /CUMM) 3.1 Absolute Lymphocytes (1.2 - 3.4 /CUMM) 1.3 Absolute Monocytes (0.10 - 0.60 /CUMM) 0.4 Absolute Eosinophils (0.0 - 0.7 /CUMM) 0.3 Absolute Basophils (0.0 - 0.2 /CUMM) 0 Vital Signs Date Time Temp Pulse Resp B/P B/P Pulse O2 O2 Flow FiO2 Mean Ox Delivery Rate 01/11 0803 21.4 01/11 0800 96 Ventilator 30% 01/11 0800 98.2 77 18 148/80 94 Ventilator 30% 01/11 0600 30 01/11 0400 91 Ventilator 30% 01/11 0310 30 01/11 0114 30 01/11 0000 95 Ventilator 30% 01/11 0000 97.8 61 18 153/85 95 Ventilator 30% 01/10 2215 30 01/10 2000 94 Ventilator 30% 01/10 1945 30 01/10 1615 30 01/10 1600 98.5 81 18 144/68 95 Ventilator 30% 01/10 1600 93 Ventilator 30% 01/10 1430 30 01/10 1204 30 01/10 1200 Ventilator 30% Intake & Output 01/11 1600 01/11 0800 01/11 0000 Intake Total 3017 3052 Output Total 1900 1205 Balance 1117 1847 Intake, IV 2077 2277 Intake, Tube 440 275 Feeding Intake, Tube 500 500 Irrigant Output, Urine 1900 1205 Exam General Appearance: sedated, intubated Respiratory: rhonchi Cardiovascular: regular rate/rhythm Gastrointestinal: soft Extremities: pedal edema Weaning Parameters NIF: 24 Current Medications: Current Medications Sig/Minerva Start time Last Medication Dose Route Stop Time Status Admin Acetaminophen 500 MG Q6-PRN PRN 01/07 1530 AC 01/07 IV 2100 Albuterol Sulfate 3 ML Q6P PRN 01/09 1000 AC INH Ampicillin Sodium/ 1,500 MG Q6H 01/07 0600 AC 01/11 Sulbactam Sodium IV 0529 Sodium Chloride 100 ML Artificial Tears 2 GTT TID 01/08 0900 AC 01/11 OPH 0829 Chlordiazepoxide HCl 75 MG Q4 01/09 1000 AC 01/11 PO 0537 Cyanocobalamin/ 1 BAG DAILY 01/07 0900 AC 01/10 Thiamine/Pyridoxine IV 1051 Dextrose/Water 1,000 ML Enoxaparin Sodium 40 MG DAILY 01/07 09 AC 01/11 SC 0829 Erythromycin 1 PRIYA 4 TIMES/DAY 01/08 0900 AC 01/11 OPH 0829 Ipratropium [place] 2.5 ML TID 01/09 0951 AC INH Lorazepam 100 MG Q6H 01/11 0800 AC 01/11 Sodium Chloride 1,000 ML IV 0834 Lorazepam 100 MG Q6H 01/10 1100 DC 01/11 Sodium Chloride 1,000 ML IV 0528 Magnesium Sulfate 1 GM ONCE ONE 01/11 0800 AC 01/11 Dextrose/Water 100 ML IV 01/11 1159 0828 Pantoprazole Sodium 40 MG DAILY 01/07 0900 AC 01/11 IV 0829 Potassium Chloride 40 MEQ ONCE ONE 01/11 0800 DC 01/11 PO 01/11 0801 0831 Potassium Chloride 40 MEQ ONCE ONE 01/10 1930 DC 01/10 PO 01/10 1931 2047 Potassium Chloride 20 MEQ Q13H 01/10 0845 AC 01/10 Dextrose/Sodium 1,000 ML IV 2344 Chloride Propofol 1,000 MG .STK-MED ONE 01/10 2249 DC IV 01/10 2250 Propofol 1,000 MG Q24H 01/10 0130 AC 01/10 N/A 1 UNIT IV 0925 Impression/Plan Impression/Problem List Impression: 37-year-old gentleman, recently discharged from [facility] on Dec 01 2017, admitted for suicidal attempt, BIBA from home after another suicidal attempt after overdosing on olanzapine 20 milligrams, melatonin and trazodone 100 milligrams. According to EMS 70, pills were missing- since last fill date. Head CT -No acute intracranial pathology. CXR -mild persistent elevation of the right hemidiaphragm. CTA,CT Abd/Pelvis - 1. Aspiration pneumonia in the right lower lobe, characterized by patchy consolidation with opacification of the lower lobe bronchi. 2. No evidence of pulmonary emboli. 3. No acute intra-abdominal or intrapelvic abnormalities. Assessment and plan- Acute Respiratory failure Intubated * on IV Ativan drip 14mg/hr + IV propofol 20mcg/hr. Not ready for extubation * Head end of the bed elevation. * Strict intake output charting. Right middle lobe aspiration Pneumonia - resp culture MSSA * Continue unasyn (01/07/2018 - 01/13/2018) * Stopped Vancomycin Alcohol use disorder * on Ativan drip, continue librium * IV thiamine Cocaine use disorder * Avoid beta blockers Suicide attempt psych consult once medically stable. CODE STATUS -full code DVT prophylaxis - sc lovenox Diet -on tube feeds Problem List: 1. Suicide attempt Pain Ratin Tomorrow's Labs & Rationales: cbc/ICU Plan DVT/Prophylaxis: mechanical, pharmacological Tank Park MD 01/11/18 1156: Attending MD Review Statement Attending Sign Off Attending Cosign Statement: I have: examined this patient, reviewed [employer] EMR data, personally reviewd images, discussd w/resident/PA/LIEUTENANT GOVERNOR, discussed mgmt plan w/anuj, discussed mgmt plan w/CM, discussed mgmt plan w/pt, agreed w/resident/PA/LIEUTENANT GOVERNOR, amended to note. Other Findings: Impression 37 year old man * Drug overdose/suicide attempt - significant psychiatric history of anxiety/ depression/bipolar d/o and suicidal attempt, admitted to the ICU with an overdose of multiple medications mostly trazadone per records * also treating for likely etoh withdrawal in the setting of dependence * aspiration pneumonia and RLL opacity Plan Respiratory/ID -patient requiring higher doses of sedation due to irritability and agitation, due to increased sedation, not safe to extubate as of yet, will sedate further given likely withdrawal state, will resume CPAP trials once more cooperative -RLL opacity, unasyn for coverage -sputum culture -continue mechanical ventilation given sedation/ativan requirements -CPAP trials for excercise CVS -hemodynamic monitoring -will periodically monitor QT Heme -stable Metabolic -ins/outs -replete electrolytes -on ativan gtt -continue librium -propofol added - monito lipase and CK Alimentary -tube feeds, hold for residuals, nutrition input Neuro -will require crisis/psych - will alert of admission and should be seen once extubated -ativan, propofol, librium DVT prophylaxis at all times TTS 35 min
[2018-01-11 16:00] VITALS: BP 146/76
[2018-01-12] VITALS: BP 120/60
[2018-01-12 05:04] LABS: ABSOLUTE BASOPHIL COUNT 0 /CUMM (0.0-0.2); ABSOLUTE EOSINOPHIL COUNT 0.2 /CUMM (0.0-0.7); ABSOLUTE LYMPH COUNT 1.2 /CUMM (1.2-3.4); ABSOLUTE MONOCYTE COUNT 0.5 /CUMM (0.10-0.60); BASOPHIL % 0.3 % (0.0-2.0); EOSINOPHIL % 4.4 % (0-5); HEMATOCRIT 37.4 % (42-52); MEAN CORPUSCULAR HGB 31.4 PG (27.0-31.0); MEAN CORPUSCULAR HGB CONC 35.4 G/DL (33.0-37.0); MEAN CORPUSCULAR VOLUME 88.6 FL (80.0-94.0); MEAN PLATELET VOLUME 6.6 FL (7.4-10.4); PLATELET COUNT 298 /CUMM (130-400); RBC DISTRIBUTION WIDTH 12.3 % (11.5-14.5); RED BLOOD CELL CT 4.22 /CUMM (4.70-6.10)
--- NOTE | 2018-01-12 06:59 | RADIOLOGY REPORT ---
EXAMINATION: CHEST 1 VIEW CLINICAL INFORMATION: Intubated. COMPARISON: January 10, 2018. TECHNIQUE: An AP view of the chest is provided. FINDINGS: The cardiac silhouette is stable. An endotracheal tube is in place. The tip is approximately 4.5 cm above the josue. The mediastinal and hilar contours are unremarkable. There are neither pleural effusions nor pneumothoraces. There are no consolidations. The osseous structures are unremarkable. IMPRESSION: No evidence for acute disease. Endotracheal tube in place.
--- NOTE | 2018-01-12 07:12 | PN- Resident CRCU ---
John Atkins 01/12/18 0711: Subjective HPI/CRCU Issues: Seen the patient still intubated on both propofol and Ativan. Patient has been started on tube feeding and is at goal rate. 24 Hour Events: Ventilator settings VCVAC: Tidal volume 500, FiO2 30, respiratory rate 18, PEEP 5 On tube feeds at 55 mL/h Sedation: Propofol at 15mic/h, Ativan 14/h Objective Vital Signs & I&O Last 8 Hrs of Vitals and I&O: Vital Signs Result Date Time FiO2 30 01/12 0815 Pulse Ox 94 01/12 0400 O2 Delivery Ventilator 01/12 0400 O2 Flow Rate 30% 01/12 0400 B/P 120/60 01/12 0000 Temp 97.5 01/12 0000 Pulse 71 01/12 0000 Resp 23 01/12 0000 Intake & Output 01/12 0000 01/11 1600 01/11 0800 Intake Total 2776 3740 3017 Output Total 2800 3200 1900 Balance -24 540 1117 Intake, IV 2226 2124 2077 Intake, Tube 440 926 440 Feeding Intake, Tube 110 690 500 Irrigant Number 0 Bowel Movements Output, Urine 2800 3200 1900 Exam General Appearance: no apparent distress, Intubated Head: atraumatic, normal appearance Ears, Nose, Throat: Intubated Neck: normal inspection, supple Respiratory: normal breath sounds, chest non-tender, no respiratory distress Cardiovascular: regular rate/rhythm Gastrointestinal: normal bowel sounds, soft, non-tender Extremities: normal inspection, normal capillary refill, Bilateral soft restraints Cranial Nerves: PERRL Skin: normal color Weaning Parameters NIF: 36 Minute Volume: 15.0 Resp rate: 28 Vt: 535 Heart Rate: 81 Weaning Schedule Start Time: 1944 Minute Volume: 13.5 Resp Rate: 28 Vt: 482 Heart Rate: 81 End Time: 2044 Minute Volume: 11.4 Resp Rate: 27 Vt: 422 Heart Rate: 76 Nutrition Nutrition: tube feeding Current Medications: Current Medications Sig/Minerva Start time Last Medication Dose Route Stop Time Status Admin Acetaminophen 500 MG Q6-PRN PRN 01/07 1530 AC 01/07 IV 2100 Albuterol Sulfate 3 ML Q6P PRN 01/09 1000 AC INH Ampicillin Sodium/ 1,500 MG Q6H 01/07 0600 AC 01/12 Sulbactam Sodium IV 0524 Sodium Chloride 100 ML Artificial Tears 2 GTT TID 01/08 0900 AC 01/11 OPH 2118 Chlordiazepoxide HCl 75 MG Q4 01/09 1000 AC 01/12 PO 0525 Cyanocobalamin/ 1 BAG DAILY 01/07 0900 AC 01/11 Thiamine/Pyridoxine IV 1210 Dextrose/Water 1,000 ML Enoxaparin Sodium 40 MG DAILY 01/07 0900 AC 01/12 SC 0827 Erythromycin 1 PRIYA 4 TIMES/DAY 01/08 0900 AC 01/12 OPH 0826 Ipratropium [place] 2.5 ML TID 01/09 0951 AC INH Lorazepam 100 MG Q6H 01/11 0800 AC 01/12 Sodium Chloride 1,000 ML IV 0635 Magnesium Sulfate 1 GM ONCE ONE 01/12 0600 DC 01/12 Dextrose/Water 100 ML IV 01/12 0959 0701 Magnesium Sulfate 1 GM ONCE ONE 01/11 0800 DC 01/11 Dextrose/Water 100 ML IV 01/11 1159 0828 Pantoprazole Sodium 40 MG DAILY 01/07 0900 AC 01/12 IV 0826 Potassium Chloride 20 MEQ ONCE ONE 01/12 0615 DC 01/12 PO 01/12 0616 0622 Potassium Chloride 40 MEQ ONCE ONE 01/12 0600 CAN PO 01/12 0601 Potassium Chloride 20 MEQ Q13H 01/10 0845 AC 01/11 Dextrose/Sodium 1,000 ML IV 2258 Chloride Propofol 1,000 MG .STK-MED ONE 01/12 0023 DC IV 01/12 0024 Propofol 1,000 MG Q24H 01/10 0130 AC 01/12 N/A 1 UNIT IV 0827 CXR Findings: No acute pathology ETT in place Impression/Plan Impression/Problem List Impression: 37-year-old gentleman, recently discharged from [facility] on Dec 01 2017, admitted again on January 07 for suicidal attempt, BIBA from home after another suicidal attempt after overdosing on olanzapine 20 milligrams, melatonin and trazodone 100 milligrams. According to EMS 70, pills were missing- since last fill date. Assessment and plan- Respiratory The patient remains intubated on IV Ativan drip 14mg/hr + IV propofol 15mcg/hr. Today we will take patient off propofol and start trials of extubation. Head end of the bed elevation. On presentation the patient was intubated cause of increased aggression, inability to protect airway, altered mental status and at some point was saturating 88% on 3 L which represents an episode of hypoxia. Infectious Continue unasyn to complete 7 days Stopped Vancomycin Patient has remained afebrile Lower respiratory culture grew Staphylococcus aureus Cardiovascular Remained stable cardiovascular events Neurology Patient remains intubated and sedated initial attempt to decrease medication showed significant agitation. Will take the patient off propofol as we prepare for extubation. Metabolic Patient has slightly low potassium and magnesium will continue to replenish through the NG tube. Continue to follow basic metabolic panel and a correct electrolytes accordingly. Overnight I/Os: 8243/5005 since admission 21,600/17,925 Psychiatry History of suicide attempts Multiple in the past including index admission psych consult once medically stable. Problem List: 1. Suicide attempt 2. Alcohol withdrawal 3. Aspiration pneumonia Pain Ratin Tomorrow's Labs & Rationales: ICU bundle and CBC Plan DVT/Prophylaxis: mechanical, pharmacological Tank Park MD 01/12/18 1047: Attending MD Review Statement Attending Sign Off Attending Cosign Statement: I have: examined this patient, reviewed [employer] EMR data, personally reviewd images, discussd w/resident/PA/HERPETOLOGIST, discussed mgmt plan w/anuj, discussed mgmt plan w/CM, discussed mgmt plan w/pt, agreed w/resident/PA/HERPETOLOGIST, amended to note. Other Findings: Impression 37 year old man * Drug overdose/suicide attempt - significant psychiatric history of anxiety/ depression/bipolar d/o and suicidal attempt, admitted to the ICU with an overdose of multiple medications mostly trazadone per records * also treating for likely etoh withdrawal in the setting of dependence * aspiration pneumonia and RLL opacity Plan Respiratory/ID -patient requiring higher doses of sedation due to irritability and agitation, due to increased sedation, not safe to extubate as of yet, will sedate further given likely withdrawal state, will resume CPAP trials once more cooperative -RLL opacity, unasyn for coverage -sputum culture -continue mechanical ventilation given sedation/ativan requirements -CPAP trials for excercise CVS -hemodynamic monitoring -will periodically monitor QT Heme -stable Metabolic -ins/outs -replete electrolytes -on ativan gtt -continue librium -propofol added - monito lipase and CK Alimentary -tube feeds, hold for residuals, nutrition input Neuro -will require crisis/psych - will alert of admission and should be seen once extubated -ativan, propofol, librium DVT prophylaxis at all times TTS 35 min
[2018-01-12 08:00] VITALS: BP 140/92
[2018-01-12 16:00] VITALS: BP 140/80
[2018-01-13] VITALS: BP 110/60
[2018-01-13 04:24] LABS: ABSOLUTE BASOPHIL COUNT 0 /CUMM (0.0-0.2); ABSOLUTE EOSINOPHIL COUNT 0.2 /CUMM (0.0-0.7); ABSOLUTE GRANULOCYTE CT 2.8 /CUMM (1.4-6.5); ABSOLUTE LYMPH COUNT 1.4 /CUMM (1.2-3.4); ABSOLUTE MONOCYTE COUNT 0.5 /CUMM (0.10-0.60); BASOPHIL % 0.3 % (0.0-2.0); EOSINOPHIL % 4.7 % (0-5); GRANULOCYTE % 56.9 % (42.2-75.2); HEMATOCRIT 38.4 % (42-52); MEAN CORPUSCULAR HGB 31.1 PG (27.0-31.0); MEAN CORPUSCULAR VOLUME 91.6 FL (80.0-94.0); MEAN PLATELET VOLUME 6.4 FL (7.4-10.4); PLATELET COUNT 323 /CUMM (130-400); RED BLOOD CELL CT 4.19 /CUMM (4.70-6.10); WHITE BLOOD CELL COUNT 4.9 /CUMM (4.8-10.8)
--- NOTE | 2018-01-13 06:58 | PN- Resident CRCU ---
WilbertJohn 01/13/18 0658: Subjective HPI/CRCU Issues: Reviewed the patient lying on the bed still intubated and currently patient is on propofol 25 and Ativan 14. He is on FiO2 of 30% 24 Hour Events: No telemetry events Objective Vital Signs & I&O Last 8 Hrs of Vitals and I&O: Vital Signs Date Time Temp Pulse Resp B/P B/P Pulse O2 O2 Flow FiO2 Mean Ox Delivery Rate 01/13 0813 30 01/13 0555 30 01/13 0400 95 Ventilator 30% 01/13 0313 30 01/13 0013 30 01/13 0000 93 Ventilator 30% 01/13 0000 97.4 72 18 110/60 93 Ventilator 30% 01/12 2222 30 01/12 1958 93 Ventilator 30% 01/12 1949 30 01/12 1620 30 01/12 1600 97.7 66 18 140/80 92 Ventilator 30% 01/12 1600 94 Ventilator 30% 01/12 1349 30 01/12 1200 92 Ventilator 30% Exam General Appearance: no apparent distress, Intubated Head: atraumatic Neck: normal inspection, supple Respiratory: normal breath sounds, no respiratory distress Cardiovascular: regular rate/rhythm Gastrointestinal: normal bowel sounds, soft, non-tender Extremities: normal inspection, normal capillary refill Cranial Nerves: PERRL Skin: intact Skin Temp/Moisture Exam: Warm/Dry Weaning Parameters NIF: 28 Minute Volume: 11.2 Resp rate: 23 Vt: 422 Heart Rate: 72 Weaning Schedule Start Time: 1735 Minute Volume: 8.45 Resp Rate: 21 Vt: 484 Heart Rate: 70 End Time: 1945 Minute Volume: 8.88 Resp Rate: 22 Vt: 445 Heart Rate: 72 [place] Still Needed? Yes NG Tube Still Needed? Yes Nutrition Nutrition: tube feeding Current Medications: Current Medications Sig/Minerva Start time Last Medication Dose Route Stop Time Status Admin Acetaminophen 500 MG Q6-PRN PRN 01/07 1530 AC 01/07 IV 2100 Albuterol Sulfate 3 ML Q6P PRN 01/09 1000 AC INH Ampicillin Sodium/ 1,500 MG Q6H 01/07 0600 AC 01/13 Sulbactam Sodium IV 0512 Sodium Chloride 100 ML Artificial Tears 2 GTT TID 01/08 0900 AC 01/12 OPH 2039 Chlordiazepoxide HCl 75 MG Q4 01/09 1000 AC 01/13 PO 0537 Cyanocobalamin/ 1 BAG DAILY 01/07 09 DC 01/12 Thiamine/Pyridoxine IV 1207 Dextrose/Water 1,000 ML Enoxaparin Sodium 40 MG DAILY 01/07 09 AC 01/12 SC 0827 Erythromycin 1 PRIYA 4 TIMES/DAY 01/08 09 DC 01/12 OPH 2039 Folic Acid 1 MG DAILY 01/13 09 AC PO Ipratropium [place] 2.5 ML TID 01/09 0951 DC INH Lorazepam 100 MG Q6H 01/11 0800 AC 01/13 Sodium Chloride 1,000 ML IV 0706 Magnesium Sulfate 1 GM ONCE ONE 01/12 06 DC 01/12 Dextrose/Water 100 ML IV 01/12 0959 0701 Multivitamins 15 ML DAILY 01/13 09 AC PO Pantoprazole Sodium 40 MG DAILY 01/07 09 01/12 IV 0826 Potassium Chloride 20 MEQ Q13H 01/10 0845 GA 01/12 Dextrose/Sodium 1,000 ML IV 1128 Chloride Propofol 1,000 MG .STK-MED ONE 01/12 2302 DC IV 01/12 2303 Propofol 1,000 MG Q9H 01/12 1730 01/13 N/A 1 UNIT IV 0347 Propofol 1,000 MG Q24H 01/10 0130 GA 01/12 N/A 1 UNIT IV 01/12 1729 0827 Thiamine HCl 100 MG DAILY 01/13 09 AC PO Impression/Plan Impression/Problem List Impression: 37-year-old gentleman, recently discharged from [facility] on Dec 01 2017, admitted again on January 07 for suicidal attempt, BIBA from home after another suicidal attempt after overdosing on olanzapine 20 milligrams, melatonin and trazodone 100 milligrams. According to EMS 70, pills were missing- since last fill date. Assessment and plan- Respiratory The patient remains intubated on IV Ativan drip 14mg/hr + IV propofol 25mcg/hr. Yesterday propofol was reduced to 12.5 and then was bumped up again. Patient is still on 2 upper soft restraints and has not required for as previous agitation episodes. We have put instructions about going forward will go not titrate down propofol and if there is any to call M.D. needs to be informed. Head end of the bed elevation. On presentation the patient was intubated cause of increased aggression, inability to protect airway, altered mental status and at some point was saturating 88% on 3 L which represents an episode of hypoxia. Patient had a total of 6 hours of weaning trials yesterday 4 hours during the afternoon and 2 hours in the evening. He tolerated them very well. Infectious Continue unasyn to complete 7 days, will complete day 7 at the end of the day today. Stopped Vancomycin Patient has remained afebrile Lower respiratory culture grew Staphylococcus aureus that is MSSA Cardiovascular Remained stable cardiovascular events Neurology Patient remains intubated and sedated initial attempt to decrease medication showed significant agitation. Will take the patient off propofol as we prepare for extubation. Going forward plan is to titrate down propofol Metabolic Patient has slightly low potassium and magnesium will continue to replenish through the NG tube. Continue to follow basic metabolic panel and a correct electrolytes accordingly. Overnight I/Os: 8331/6465. Psychiatry History of suicide attempts Multiple attempts in the past including index admission psych consult once medically stable and extubated. Problem List: 1. Aspiration pneumonia 2. JESS (acute kidney injury) 3. Polysubstance abuse 4. Alcohol withdrawal Pain Ratin Tomorrow's Labs & Rationales: ICU bundle CBC Plan DVT/Prophylaxis: mechanical, pharmacological [place] MD 01/13/18 1025: Attending MD Review Statement Attending Sign Off Attending Cosign Statement: I have: examined this patient, reviewed [facility] EMR data, personally reviewd images, discussd w/resident/PA/CUFF SETTER, discussed mgmt plan w/anuj, discussed mgmt plan w/CM, discussed mgmt plan w/pt, agreed w/resident/PA/CUFF SETTER, amended to note. Other Findings: Impression 37 year old man * Drug overdose/suicide attempt - significant psychiatric history of anxiety/ depression/bipolar d/o and suicidal attempt, admitted to the ICU with an overdose of multiple medications mostly trazadone per records * also treating for likely etoh withdrawal in the setting of dependence * aspiration pneumonia and RLL opacity Plan Respiratory/ID -patient requiring higher doses of sedation due to irritability and agitation, due to increased sedation, not safe to extubate as of yet, will sedate further given likely withdrawal state, will resume CPAP trials once more cooperative -RLL opacity, unasyn for coverage -continue mechanical ventilation given sedation/ativan requirements -CPAP trials for excercise CVS -hemodynamic monitoring -will periodically monitor QT Heme -stable Metabolic -ins/outs -replete electrolytes -on ativan gtt -continue librium -propofol added - monito lipase and CK Alimentary -tube feeds, hold for residuals, nutrition input Neuro -will require crisis/psych - will alert of admission and should be seen once extubated -ativan, propofol, librium -plan for dc propofol and consider precedex generic form DVT prophylaxis at all times TTS 35 min
[2018-01-13 08:00] VITALS: BP 130/78
--- NOTE | 2018-01-13 08:42 | RADIOLOGY REPORT ---
EXAMINATION: XR PORTABLE CHEST CLINICAL INFORMATION: Endotracheal tube placement. COMPARISON: Several prior chest x-rays, most recent of which is dated 01/12/2018. TECHNIQUE: Portable AP semierect view of the chest was obtained. FINDINGS: Evaluation is limited with the lung apices not included. Endotracheal tube tip is seen approximately 6.8 cm above the josue. Enteric tube is seen extending into the abdomen with tip beyond the [id number]. Cardiomediastinal silhouette is within normal limits in size allowing for projection. Low lung volumes are seen without focal consolidation, effusion or pneumothorax. Evaluation is limited for apical pneumothorax since the lung apices are not fully included on this exam. Bony structures are unremarkable to the extent seen. IMPRESSION: 1. Endotracheal tube tip approximately 6.8 cm above the josue. 2. Enteric tube courses into the abdomen with tip not included. 3. Low lung volumes without focal pulmonary process.
[2018-01-13 12:00] VITALS: BP 132/78
[2018-01-13 16:00] VITALS: BP 142/90
[2018-01-14] VITALS: BP 160/100
[2018-01-14 05:12] LABS: ABSOLUTE BASOPHIL COUNT 0 /CUMM (0.0-0.2); ABSOLUTE EOSINOPHIL COUNT 0.3 /CUMM (0.0-0.7); ABSOLUTE GRANULOCYTE CT 4.7 /CUMM (1.4-6.5); ABSOLUTE LYMPH COUNT 1.7 /CUMM (1.2-3.4); ABSOLUTE MONOCYTE COUNT 0.5 /CUMM (0.10-0.60); BASOPHIL % 0.1 % (0.0-2.0); EOSINOPHIL % 3.6 % (0-5); GRANULOCYTE % 65.5 % (42.2-75.2); MEAN CORPUSCULAR HGB CONC 33.8 G/DL (33.0-37.0); MEAN CORPUSCULAR VOLUME 91.7 FL (80.0-94.0); MEAN PLATELET VOLUME 6.5 FL (7.4-10.4); PLATELET COUNT 374 /CUMM (130-400); RBC DISTRIBUTION WIDTH 12.5 % (11.5-14.5); RED BLOOD CELL CT 4.82 /CUMM (4.70-6.10); WHITE BLOOD CELL COUNT 7.2 /CUMM (4.8-10.8)
[2018-01-14 05:16] LABS: HEMATOCRIT 44.2 % (42-52)
--- NOTE | 2018-01-14 07:05 | PN- Resident CRCU ---
John Atkins 01/14/18 0705: Subjective HPI/CRCU Issues: Reviewed the patient lying on the bed on 4. hard restraints. Patient is On Ativan at 12 Mg per and Precedex at 0.4 Mcg/Kg Per Hour and Decrease from Her Last night Dose Yesterday of 0.7 Mcg/Kg per hr. this morning is having a lot of transmitted sounds and his breathing is more frequent 24 Hour Events: No tele events Objective Vital Signs & I&O Last 8 Hrs of Vitals and I&O: Vital Signs Date Time Temp Pulse Resp B/P B/P Pulse O2 O2 Flow FiO2 Mean Ox Delivery Rate 01/14 0400 93 Nasal 4.0L Cannula 01/14 0000 98.6 72 32 160/100 96 Nasal 4.0L Cannula 01/14 0000 96 Nasal 4.0L Cannula 01/13 2000 95 Nasal 4.0L Cannula 01/13 1615 96 Nasal 4.0L Cannula 01/13 1600 97.8 63 23 142/90 97 Nasal 4.0L Cannula 01/13 1600 95 Nasal 4.0L Cannula 01/13 1335 95 Nasal 4.0L Cannula 01/13 1231 30 01/13 1200 94 Ventilator 30% 01/13 1200 98.8 81 17 132/78 94 Ventilator 30% 01/13 0813 30 01/13 0800 97.6 76 19 130/78 94 Ventilator 30% 01/13 0800 94 Ventilator 30% Intake & Output 01/14 0800 Intake Total 1013 Output Total 1225 Balance -212 Intake, IV 1013 Output, Urine 1225 Exam General Appearance: well developed/nourished, mild distress, agitated Head: atraumatic, normal appearance Neck: normal inspection, supple Respiratory: chest non-tender, transmitted sounds bilaterally Cardiovascular: regular rate/rhythm Gastrointestinal: normal bowel sounds, soft, non-tender Extremities: normal inspection, normal capillary refill, no edema Cranial Nerves: PERRL Skin: intact, normal color Skin Temp/Moisture Exam: Warm/Dry Sepsis Skin Exam (color): Normal for Ethnicity Current Medications: Current Medications Sig/Minerva Start time Last Medication Dose Route Stop Time Status Admin Acetaminophen 500 MG Q6-PRN PRN 01/07 1530 AC 01/13 IV 1130 Albuterol Sulfate 3 ML Q6P PRN 01/09 1000 AC INH Ampicillin Sodium/ 1,500 MG Q6H 01/07 0600 DC 01/14 Sulbactam Sodium IV 0506 Sodium Chloride 100 ML Artificial Tears 2 GTT TID 01/08 0900 AC 01/13 OPH 2235 Chlordiazepoxide HCl 75 MG Q4 01/09 1000 AC 01/13 PO 1304 Dexmedetomidine HCl 400 MCG Q5H 01/14 1100 AC 01/14 Sodium Chloride 96 ML IV 1016 Dexmedetomidine HCl 400 MCG Q6H 01/13 2130 DC 01/14 Sodium Chloride 96 ML IV 01/14 1059 0857 Dexmedetomidine HCl 400 MCG Q7H 01/13 1515 DC 01/13 Sodium Chloride 96 ML IV 01/13 2129 1552 Dextrose/Sodium 1,000 ML Q13H 01/14 1345 DC Chloride IV Enoxaparin Sodium 40 MG DAILY 01/07 0900 AC 01/14 SC 0856 Folic Acid 1 MG DAILY 01/13 0900 AC 01/13 PO 0828 Lorazepam 100 MG Q9H 01/14 1300 AC 01/14 Sodium Chloride 1,000 ML IV 1315 Lorazepam 100 MG Q6H 01/11 0800 DC 01/14 Sodium Chloride 1,000 ML IV 01/14 1259 0521 Magnesium Sulfate 1 GM Q2H 01/14 1015 DC 01/14 Dextrose/Water 100 ML IV 01/14 1414 1115 Multivitamins 15 ML DAILY 01/13 0900 AC 01/13 PO 0827 Nicotine 14 MG DAILY 01/14 1115 AC 01/14 TOP 1526 Pantoprazole Sodium 40 MG DAILY 01/07 0900 AC 01/14 IV 0856 Propofol 1,000 MG Q9H 01/12 1730 DC 01/13 N/A 1 UNIT IV 0956 Thiamine HCl 100 MG DAILY 01/13 0900 01/13 PO 0828 Impression/Plan Impression/Problem List Impression: 37-year-old gentleman, recently discharged from [facility] on Dec 01 2017, admitted again on January 07 for suicidal attempt, BIBA from home after another suicidal attempt after overdosing on olanzapine 20 milligrams, melatonin and trazodone 100 milligrams. According to EMS 70, pills were missing- since last fill date. Assessment and plan- Respiratory On presentation the patient was intubated cause of increased aggression, inability to protect airway, altered mental status and at some point was saturating 88% on 3 L which represents an episode of hypoxia. The patient was intubated for a total of 6 days and extubated on January 13 after showing very good weaning trials. Postextubation the patient has been maintained saturation while on 4 L oxygen through NC at around 96%. This morning patient slight increase in respiratory rate or low is maintaining saturation and has transmitted sounds on examination of the lungs. We will get a chest x-ray and continue to titrate down oxygen to maintain saturation above 92%. Infectious Continue unasyn to complete 7 days, patient is supposed to transition to oral Augmentin to complete a total of 10 days but post extubation is still nothing by mouth. Will continue with Unasyn until patient can take orally. Stopped Vancomycin Patient has remained afebrile Lower respiratory culture grew Staphylococcus aureus that is MSSA Cardiovascular Remained stable cardiovascular events Neurology Patient remains agitated post extubation and is on 4. restraints. This patient takes multiple psychiatric medications we have placed psychiatric consult and will be seen today. Metabolic Patient electrolytes remained stable with magnesium 1.7 phosphorous of 3.5 potassium of 4.1. She has normal renal function with BUN of 7 and creatinine of 0.4 Overnight I/Os: 4446/6065. Since admission fluid balance is 29,931/24,390 Psychiatry History of suicide attempts Multiple attempts in the past including index admission psych consult placed and will be seen today.. Problem List: 1. Aspiration pneumonia 2. Polysubstance abuse 3. Alcohol withdrawal 4. Suicidal deliberate poisoning Pain Ratin Tomorrow's Labs & Rationales: cbc, icu bundle Plan DVT/Prophylaxis: mechanical, pharmacological Xavier PRIETO,Tank 01/14/18 1134: Attending MD Review Statement Attending Sign Off Attending Cosign Statement: I have: examined this patient, reviewed [facility] EMR data, personally reviewd images, discussd w/resident/PA/SADDLE MECHANIC, discussed mgmt plan w/anuj, discussed mgmt plan w/CM, discussed mgmt plan w/pt, agreed w/resident/PA/SADDLE MECHANIC, amended to note. Other Findings: Impression 37 year old man * Extubated after drug overdose/suicide attempt - significant psychiatric history of anxiety/depression/bipolar d/o and suicidal attempt, admitted to the ICU with an overdose of multiple medications mostly trazadone per records * s/p tx for aspiration pneumonia (RLL opacity) Plan Respiratory/ID -extubated -on precedex and ativan -s/p unasyn - CVS -hemodynamic monitoring -will periodically monitor QT Heme -stable Metabolic -ins/outs -replete electrolytes Alimentary -NPO -swallowing evaluation Neuro -crisis/psych appreciated -ativan titrate down, keep on precedex DVT prophylaxis at all times TTS 35 min
--- NOTE | 2018-01-14 07:56 | RADIOLOGY REPORT ---
EXAMINATION: XR PORTABLE CHEST CLINICAL INFORMATION: Labored breathing with transmitted sounds. COMPARISON: Chest radiograph January 13, 2018. TECHNIQUE: Portable frontal view of the chest was obtained. FINDINGS: Low lung volumes with bibasilar atelectasis. No consolidation, edema, effusion, or pneumothorax. The endotracheal tube has been removed. The nasogastric catheter has been removed. Multiple EKG leads are seen overlying the chest. IMPRESSION: No acute abnormality within the limits of low lung volumes. The endotracheal tube and nasogastric catheter have been removed.
[2018-01-14 08:00] VITALS: BP 132/90
--- NOTE | 2018-01-14 09:18 | Cons- Psychiatry ---
Psychiatric Consult Date of Consult: 01/13/18 Reason for Consult: Asked to see this 37-year-old male status post overdose who became extremely agitated following extubation yesterday. Yesterday evening the patient was in four-point drains. Case reviewed with team and patient seen this morning. History of Present Illness: Review of patient's chart reveals that he is well-known to this service. He has a past medical history of bipolar disorder, polysubstance abuse with crack cocaine dependence and history of frequent overdoses. He was admitted on January 06 having called EMS stating he had attempted suicide. He reported an overdose of a combination of trazodone, melatonin, buspirone, chlorpromazine and olanzapine. The majority of medication appears to have been trazodone. The patient was admitted to ICU and ventilated. He was extubated on January 13 and became extremely agitated. The patient is currently on lorazepam 13 mg/h IV. He is also on Precedex. This morning the patient was unarousable. According to nursing staff when aroused he is agitated and appears to be disoriented. Allergies: Coded Allergies: cyclobenzaprine (TREMORS 08/07/17) bupropion (Mild, Increase in afshan, reported on a previous admission 08/07/17) Past History Past Medical History Neurological: delerium tremens, restless leg syndrome, ETOH withdrawal seizures EENT: NONE Cardiovascular: hypertension, hyperlipidemia Respiratory: NONE Gastrointestinal: NONE Hepatic: NONE Renal: NONE Musculoskeletal: Left knee meniscal tear Psychiatric: alcohol dependence, anxiety, bipolar disease, depression, insomnia, substance abuse, Suicidal ideation, overdose suicide attempt X 15 Endocrine: NONE Blood Disorders: NONE Cancer(s): NONE 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 2018 He appears to have good insight into his need for treatment and is motivated to attend. Physical Limitations (Interventions): None noted Psychiatric Treatment History Psych Treatment Psychiatric Treatment Yes Inpatient Treatment Yes Diagnosis: By Hx. 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 Per nursing staff the patient is disoriented when awake. He is also easily agitated. Lab Results: Lab Urine Cocaine Screen > 1000 NG/ML H 01/06/18 0057 Lab Sodium 142 mmol/L 01/14/18 0430 Albumin 3.4 g/dL L 01/14/18 0430 CMP otherwise normal today. Diffential Diagnosis: 1. Acute agitation. Evidence of disorientation suggests delirium as the cause of agitation. Suggest tapering off lorazepam and increasing Precedex to control agitation while NPO. 2. The patient has a history of unspecified bipolar disorder. Swallow has not yet been checked. When the patient is able to take meds orally suggest recommencing Depakote 750 mg p.o. a.m. and at bedtime. Can also use quetiapine 50 mg q 6H initially for agitation. Do not restart flouxetine/trazodone/buspar/melatonin pro tem. 3. S/P suicide attempt: Continue constant observation for safety. 4. Cocaine dependence, alcohol dependence Impression: As above. Will likely admit to CPS when medically cleared and bed available. Psych will continue to follow and collaborate in management. Thank you for consulting us on this patient.
[2018-01-14 12:00] VITALS: BP 140/80
[2018-01-14 15:58] VITALS: BP 130/76
[2018-01-15] VITALS: BP 140/90
[2018-01-15 04:19] LABS: ABSOLUTE BASOPHIL COUNT 0 /CUMM (0.0-0.2); ABSOLUTE EOSINOPHIL COUNT 0.2 /CUMM (0.0-0.7); ABSOLUTE GRANULOCYTE CT 3.8 /CUMM (1.4-6.5); ABSOLUTE LYMPH COUNT 1.8 /CUMM (1.2-3.4); ABSOLUTE MONOCYTE COUNT 0.5 /CUMM (0.10-0.60); BASOPHIL % 0.2 % (0.0-2.0); EOSINOPHIL % 3.2 % (0-5); GRANULOCYTE % 59.5 % (42.2-75.2); HEMATOCRIT 42.4 % (42-52); MEAN CORPUSCULAR HGB CONC 34.4 G/DL (33.0-37.0); MEAN CORPUSCULAR VOLUME 90.1 FL (80.0-94.0); MEAN PLATELET VOLUME 6.1 FL (7.4-10.4); PLATELET COUNT 402 /CUMM (130-400); RBC DISTRIBUTION WIDTH 12.6 % (11.5-14.5); WHITE BLOOD CELL COUNT 6.4 /CUMM (4.8-10.8)
--- NOTE | 2018-01-15 07:18 | PN- Resident CRCU ---
John Atkins 01/15/18 0706: Subjective HPI/CRCU Issues: Status post extubation inability to swallow Agitation Patient still on 4. restraints and on Ativan drip and Precedex 24 Hour Events: No tele events Objective Vital Signs & I&O Last 8 Hrs of Vitals and I&O: Vital Signs Result Date Time Pulse Ox 95 01/15 0400 O2 Delivery Nasal Cannula 01/15 0400 O2 Flow Rate 4.0L 01/15 0400 B/P 140/90 01/15 0000 Temp 97.0 01/15 0000 Pulse 65 01/15 0000 Resp 25 01/15 0000 FiO2 30 01/13 1231 Intake & Output 01/15 0000 01/14 1600 01/14 0800 Intake Total 869 1319.8 1013 Output Total 800 1250 1225 Balance 69 69.8 -212 Intake, IV 869 1319.8 1013 Intake, Oral 0 Number 0 Bowel Movements Output, Urine 800 1250 1225 Patient 243 lb Weight Weight Bed scale Measurement Method Intake & Output 01/15 0800 Intake Total 980 Output Total 1150 Balance -170 Intake, IV 980 Output, Urine 1150 Exam General Appearance: no apparent distress, Agitated Head: atraumatic, normal appearance Neck: normal inspection, supple Respiratory: normal breath sounds, chest non-tender, no respiratory distress Cardiovascular: regular rate/rhythm Gastrointestinal: normal bowel sounds, soft, non-tender Extremities: normal inspection, normal capillary refill Nutrition Nutrition: NPO Current Medications: Current Medications Sig/Minerva Start time Last Medication Dose Route Stop Time Status Admin Acetaminophen 500 MG Q6-PRN PRN 01/07 1530 AC 01/13 IV 1130 Albuterol Sulfate 3 ML Q6P PRN 01/09 1000 AC INH Ampicillin Sodium/ 1,500 MG Q6H 01/07 0600 DC 01/14 Sulbactam Sodium IV 0506 Sodium Chloride 100 ML Artificial Tears 2 GTT TID 01/08 0900 AC 01/14 OPH 2125 Chlordiazepoxide HCl 75 MG Q4 01/09 1000 AC 01/13 PO 1304 Dexmedetomidine HCl 400 MCG Q5H 01/14 1100 AC 01/15 Sodium Chloride 96 ML IV 0627 Dexmedetomidine HCl 400 MCG Q6H 01/13 2130 DC 01/14 Sodium Chloride 96 ML IV 01/14 1059 0857 Dextrose/Sodium 1,000 ML Q13H 01/14 1345 DC Chloride IV Enoxaparin Sodium 40 MG DAILY 01/07 0900 AC 01/14 SC 0856 Folic Acid 1 MG DAILY 01/13 0900 AC 01/13 PO 0828 Lorazepam 100 MG Q9H 01/14 1300 AC 01/15 Sodium Chloride 1,000 ML IV 0629 Lorazepam 100 MG Q6H 01/11 0800 DC 01/14 Sodium Chloride 1,000 ML IV 01/14 1259 0521 Magnesium Sulfate 1 GM Q2H 01/14 1015 DC 01/14 Dextrose/Water 100 ML IV 01/14 1414 1115 Multivitamins 15 ML DAILY 01/13 0900 AC 01/13 PO 0827 Nicotine 14 MG DAILY 01/14 1115 AC 01/14 TOP 1526 Pantoprazole Sodium 40 MG DAILY 01/07 0900 AC 01/14 IV 0856 Thiamine HCl 100 MG DAILY 01/13 0900 AC 01/13 PO 0828 Impression/Plan Impression/Problem List Impression: 37-year-old gentleman, recently discharged from [facility] on Dec 01 2017, admitted again on January 07 for suicidal attempt, BIBA from home after another suicidal attempt after overdosing on olanzapine 20 milligrams, melatonin and trazodone 100 milligrams. According to EMS 70, pills were missing- since last fill date. Assessment and plan- Respiratory On presentation the patient was intubated cause of increased aggression, inability to protect airway, altered mental status and at some point was saturating 88% on 3 L which represents an episode of hypoxia. The patient was intubated for a total of 6 days and extubated on January 13 after showing very good weaning trials. Postextubation the patient has been maintained saturation while on 4 L oxygen through OR at around 96%. Patient has continued to maintain saturation without change in oxygen requirements. She is not yet obeying command and because of that has not had a swallow evaluation. Is still nothing by mouth pending swallow evaluation Infectious Chest x-ray showed evidence of right lower lung opacity suggestive of aspiration pneumonia. He was started on Unasyn and vancomycin but vancomycin was stopped after he grew methicillin sensitive Staphylococcus aureus. Patient received 7 days of IV Unasyn and is off antibiotics since January 14. Cardiovascular Remains stable cardiovascular events Today we will monitor QT with an EKG found normal at 440. Neurology Patient remains agitated post extubation and is on 4. restraints. This patient takes multiple psychiatric medications seen by psychiatrist who recommended resuming home antipsychotic medication once patient can take orally. Metabolic Patient electrolytes remained stable with magnesium 1.9 phosphorous of 3.4 potassium of 4.0. He has normal renal function with BUN of 8 and creatinine of 0.9 Overnight I/Os: 3169/3200[place] [address] Psychiatry History of suicide attempts Multiple attempts in the past including index admission Patient been by psychiatry yesterday and will continue to review the patient has his interaction level increases. The plan is for the patient to be transferred to Inpatient Psychiatry once cleared by medical team Problem List: 1. Suicidal deliberate poisoning 2. Mental status change 3. Aspiration pneumonia 4. Polysubstance abuse 5. Bipolar disorder 6. Alcohol withdrawal Pain Ratin Tomorrow's Labs & Rationales: CBC and ICU bundle Plan DVT/Prophylaxis: mechanical, pharmacological [place] MD 01/15/18 0934: Attending MD Review Statement Attending Sign Off Attending Cosign Statement: I have: examined this patient, reviewed [email or web address] EMR data, personally reviewd images, discussd w/resident/PA/DIPLOMATIC COURIER, discussed mgmt plan w/anuj, discussed mgmt plan w/CM, discussed mgmt plan w/pt, agreed w/resident/PA/DIPLOMATIC COURIER, amended to note. Other Findings: Impression 37 year old man * Extubated after drug overdose/suicide attempt - significant psychiatric history of anxiety/depression/bipolar d/o and suicidal attempt, admitted to the ICU with an overdose of multiple medications mostly trazadone per records * s/p tx for aspiration pneumonia (RLL opacity) Plan Respiratory/ID -extubated -on precedex and ativan -s/p unasyn CVS -hemodynamic monitoring -will periodically monitor QT Heme -stable Metabolic -ins/outs -replete electrolytes Alimentary -NPO -continued swallowing evaluation Neuro -crisis/psych appreciated -ativan titrate down, keep on precedex DVT prophylaxis at all times TTS 35 min
[2018-01-15 08:00] VITALS: BP 140/78
--- NOTE | 2018-01-15 08:04 | Transfer of Care Summary ---
Hospital Course Course Hospital Course: This is a 37-year-old male, recently discharged from [facility] on Dec 01 2017, and treated for suicidal attempt (Evi), KENNY from home after another suicidal attempt to overdose on olanzapine 20 milligrams, melatonin, trazodone 100 milligrams. According to EMS 70, pills were missing- since last fill date. In the ED, he was diaphoretic and nauseous, so IV normal saline, Zofran were given. Later he desaturated to 88% on 3 liters, so kept on 100% nonrebreather. As he was irritable and pulling mask, soft restraint were placed. He continued to have tachycardia in range of 130-140, tachypnea range of 20 to 28. Intermittently patient was drowsy and irritable. The patient was intubated because of increased agitation and inability to protect airway with massive secretions. The patient was transferred to the intensive care unit and is being manage him for the following condition. Aspiration pneumonia hest x-ray showed evidence of right lower lung opacity suggestive of aspiration pneumonia. He was started on Unasyn and vancomycin but vancomycin was stopped after he grew methicillin sensitive Staphylococcus aureus. Patient received 7 days of IV Unasyn and is off antibiotics since January 14. One episode of fever on 01/18/18, and blood cultures were sent then, no growth so far. No leukocytosis/banedmia though. Still off abx. He had successful weaning trials and was extubated on January 13. Alcohol withdrawal Patient has history of polysubstance abuse including alcohol. He required very high doses of Ativan to sedate him during the course of admission. Attempts to wean him was associated with severe agitation that necessitated 4-point restraints while the patient was extubated. Patient was reviewed by social sciences instructor he has had multiple admissions in the past with multiple suicide attempts and at some point his mother Mariann wanted to be his conservator but it was ruled against because the patient was found tohave capable of making decision then. ostrich farm worker will discuss with mom during the course of this admission the best way going forward to take care of Martínez given various decisions he has made which has proven adverse for him in the past. He is off Precedex, IV ativan and is now on PO Librium taper. Psych is on board too. Agitation/bipolar disorder/suicide attempt Patient is on multiple antipsychotic medications and during the course of the admission we initially held the medication because of suspected suicide using the same kind of medications. Following extubation, we involved psychiatry team for his worsening agitation to a point when he was violent to the staff as well. He had to be restrained with 4-point hard restraints for severe behavioral issues. Per Psych recommendations, we restarted him on IV Valproate and PO Seroquel which seems to be helping, and Seroquel can be tapered as needed. He is doing better daily butis still drowsy, and attempts unsafe ambulation at times, but is not violent or severely agitated as before. He is still confused. His soft restraints are taken off already, and per Psych service, he is to be transferred to Inpatient Psychiatry once cleared medically. In the meantime, continue with 1:1 sitter. Significant Procedures: Intubation Assessment/Plan: Review the hospital course section
--- NOTE | 2018-01-15 11:18 | IP INCIDENTAL NOTE PSYCH ---
Incidental Note Notation: The patient failed his swallow test yesterday. Continues on dexmedetomidine and reducing doses of lorazepam. Continues on one-to-one observation. For repeat swallow test today. Remains sedated, awake intermittently, intermittent agitation. Psych will continue to follow.
[2018-01-15 16:00] VITALS: BP 128/96
[2018-01-16] VITALS: BP 135/100
[2018-01-16 04:48] LABS: ABSOLUTE BASOPHIL COUNT 0 /CUMM (0.0-0.2); ABSOLUTE EOSINOPHIL COUNT 0.2 /CUMM (0.0-0.7); ABSOLUTE GRANULOCYTE CT 6.6 /CUMM (1.4-6.5); ABSOLUTE LYMPH COUNT 1.6 /CUMM (1.2-3.4); ABSOLUTE MONOCYTE COUNT 0.5 /CUMM (0.10-0.60); BASOPHIL % 0.3 % (0.0-2.0); HEMATOCRIT 45.3 % (42-52); MEAN CORPUSCULAR HGB 30.5 PG (27.0-31.0); MEAN CORPUSCULAR HGB CONC 34.1 G/DL (33.0-37.0); MEAN CORPUSCULAR VOLUME 89.6 FL (80.0-94.0); MEAN PLATELET VOLUME 6.4 FL (7.4-10.4); PLATELET COUNT 392 /CUMM (130-400); RBC DISTRIBUTION WIDTH 12.9 % (11.5-14.5); RED BLOOD CELL CT 5.05 /CUMM (4.70-6.10); WHITE BLOOD CELL COUNT 8.9 /CUMM (4.8-10.8)
--- NOTE | 2018-01-16 07:15 | PN- Resident CRCU ---
John Atkins 01/16/18 0714: Subjective HPI/CRCU Issues: Status post extubation inability to eat food but can swallow medications Agitation on 4. medical restraints Ativan drip at 5 mg per hour and Precedex at 1.4 mcg/kg/h 24 Hour Events: No telemetry events Objective Vital Signs & I&O Last 8 Hrs of Vitals and I&O: Vital Signs Date Time Temp Pulse Resp B/P B/P Pulse O2 O2 Flow FiO2 Mean Ox Delivery Rate 01/16 0400 95 Nasal 2.0L Cannula 01/16 0000 97.6 66 20 135/100 93 Nasal 4.0L Cannula 01/16 0000 93 Nasal 4.0L Cannula 01/15 2000 96 Nasal 2.0L Cannula 01/15 1600 92 Nasal 4.0L Cannula 01/15 1600 96.9 68 24 128/96 92 Nasal 4.0L Cannula 01/15 1200 Nasal 5.0L Cannula Exam General Appearance: well developed/nourished, no apparent distress Head: atraumatic, normal appearance Neck: normal inspection, supple Respiratory: normal breath sounds, chest non-tender, no respiratory distress Cardiovascular: regular rate/rhythm Gastrointestinal: normal bowel sounds, soft, non-tender Extremities: normal inspection, normal capillary refill, no edema Current Medications: Current Medications Sig/Minerva Start time Last Medication Dose Route Stop Time Status Admin Acetaminophen 500 MG Q6-PRN PRN 01/07 1530 AC 01/13 IV 1130 Albuterol Sulfate 3 ML Q6P PRN 01/09 1000 AC INH Artificial Tears 2 GTT TID 01/08 0900 AC 01/16 OPH 0805 Chlordiazepoxide HCl 75 MG Q4 01/09 1000 AC 01/16 PO 0225 Dexmedetomidine HCl 400 MCG Q2H 01/16 0900 AC Sodium Chloride 96 ML IV Dexmedetomidine HCl 400 MCG Q4H 01/15 1000 DC 01/16 Sodium Chloride 96 ML IV 0847 Dexmedetomidine HCl 400 MCG Q5H 01/14 1100 DC 01/15 Sodium Chloride 96 ML IV 01/15 0959 0627 Divalproex Sodium 750 MG BID 01/15 1145 AC 01/15 PO 2144 Divalproex Sodium 750 MG BID 01/15 1030 DC PO Enoxaparin Sodium 40 MG DAILY 01/07 0900 AC 01/16 SC 0807 Folic Acid 1 MG DAILY 01/13 0900 AC 01/13 PO 0828 Lorazepam 100 MG Q14H 01/15 1630 AC 01/16 Sodium Chloride 1,000 ML IV 0805 Lorazepam 100 MG Q9H 01/14 1300 DC 01/15 Sodium Chloride 1,000 ML IV 01/15 1629 0629 Multivitamins 15 ML DAILY 01/13 0900 AC 01/13 PO 0827 Nicotine 14 MG DAILY 01/14 1115 AC 01/16 TOP 0807 Pantoprazole Sodium 40 MG DAILY 01/07 0900 AC 01/16 IV 0807 Quetiapine Fumarate 50 MG Q6 01/15 1030 AC 01/15 PO 2300 Thiamine HCl 100 MG DAILY 01/13 0900 AC 01/13 PO 0828 EKG Findings: QTC of 440 Impression/Plan Impression/Problem List Impression: 37-year-old gentleman, recently discharged from [facility] on Dec 01 2017, admitted again on January 07 for suicidal attempt, BIBA from home after another suicidal attempt after overdosing on olanzapine 20 milligrams, melatonin and trazodone 100 milligrams. According to EMS 70, pills were missing- since last fill date. Assessment and plan- Respiratory On presentation the patient was intubated cause of increased aggression, inability to protect airway, altered mental status and at some point was saturating 88% on 3 L which represents an episode of hypoxia. The patient was intubated for a total of 6 days and extubated on January 13 after showing very good weaning trials. Postextubation the patient has been maintained saturation while on [address] at around 96%. Patient has continued to maintain saturation without change in oxygen requirements. Patient passed swallow evaluation only for medication in the past patient therapist is not safe to take food. We have restarted his oral medications and will have a repeat swallow evaluation today. Infectious Chest x-ray showed evidence of right lower lung opacity suggestive of aspiration pneumonia. He was started on Unasyn and vancomycin but vancomycin was stopped after he grew methicillin sensitive Staphylococcus aureus. Patient received 7 days of IV Unasyn and is off antibiotics since January 14. Cardiovascular Remains stable cardiovascular events Yesterday we ordered an EKG that showed normal QTC at 440. Neurology Patient remains agitated post extubation and is on 4. restraints. This patient takes multiple psychiatric medications seen by psychiatrist who recommended resuming home antipsychotic medication once patient can take orally. From January 15 the patient was started on his Depakote 750 mg twice a day and several core 50 mg every 6. Psychiatry will continue to see the patient and to provide subsequent dosing for the antipsychotic medications. Metabolic Patient electrolytes remain stable mild slightly on the lower side at 1.7 but within normal range Overnight I/Os: 2466/2200. Psychiatry History of suicide attempts Multiple attempts in the past including index admission Patient been by psychiatry daily since after extubation and will continue to review the patient as his interaction level increases. The plan is for the patient to be transferred to Inpatient Psychiatry once cleared by medical team Problem List: 1. Suicidal deliberate poisoning 2. Aspiration pneumonia 3. Polysubstance abuse 4. Alcohol withdrawal Pain Ratin Tomorrow's Labs & Rationales: No need of blood work Plan DVT/Prophylaxis: mechanical, pharmacological [place] MD 01/16/18 0901: Attending MD Review Statement Attending Sign Off Attending Cosign Statement: I have: examined this patient, reviewed [employer] [facility] EMR data, personally reviewd images, discussd w/resident/PA/SWIMMING COACH, discussed mgmt plan w/anuj, discussed mgmt plan w/CM, discussed mgmt plan w/pt, agreed w/resident/PA/SWIMMING COACH, amended to note. Other Findings: Impression 37 year old man * Extubated after drug overdose/suicide attempt - significant psychiatric history of anxiety/depression/bipolar d/o and suicidal attempt, admitted to the ICU with an overdose of multiple medications mostly trazadone per records * s/p tx for aspiration pneumonia (RLL opacity) Plan Respiratory/ID -extubated -on precedex and ativan -s/p unasyn CVS -hemodynamic monitoring -will periodically monitor QT Heme -stable Metabolic -ins/outs -replete electrolytes Alimentary -can swallow pills, continued swallowing evaluation Neuro -crisis/psych appreciated -ativan titrate down, keep on precedex -depakote starting DVT prophylaxis at all times TTS 35 min
[2018-01-16 08:00] VITALS: BP 150/80
--- NOTE | 2018-01-16 09:08 | PN- Psychiatry ---
Assessment/Plan Impression: Lorazepam taper continues. Pt was agitated during the night and is now n max dose of dexmetomadine. Has passed swallow for meds only, Now taking valproate and quetiapine po. Continues on constant observation for intermitttent agitation. Suggestion: Continue lorazepam taper. Manage agitation with dexmetomidine, valproate and quetiapine, Quetiapine can be increased to 100 mg qid if necessary. Check Qtc. Valproate level on 01/20 Continue constant observation for safety Please contact psychiatry if pt more interactive over weekend. Likely admit to Psych when medically cleared and bed available. Psych will continue to follow. Subjective Subjective: Pt sedated with intermittent agitation. Review of Systems: Unobtainable
[2018-01-16 16:00] VITALS: BP 150/90
[2018-01-17] VITALS: BP 144/80
[2018-01-17 04:51] LABS: ABSOLUTE BASOPHIL COUNT 0 /CUMM (0.0-0.2); ABSOLUTE EOSINOPHIL COUNT 0.2 /CUMM (0.0-0.7); ABSOLUTE GRANULOCYTE CT 7.5 /CUMM (1.4-6.5); ABSOLUTE LYMPH COUNT 1.5 /CUMM (1.2-3.4); ABSOLUTE MONOCYTE COUNT 0.6 /CUMM (0.10-0.60); BASOPHIL % 0.5 % (0.0-2.0); GRANULOCYTE % 76.2 % (42.2-75.2); HEMATOCRIT 44.4 % (42-52); MEAN CORPUSCULAR HGB 30.8 PG (27.0-31.0); MEAN CORPUSCULAR HGB CONC 34.4 G/DL (33.0-37.0); MEAN CORPUSCULAR VOLUME 89.5 FL (80.0-94.0); MEAN PLATELET VOLUME 6.4 FL (7.4-10.4); PLATELET COUNT 387 /CUMM (130-400); RBC DISTRIBUTION WIDTH 12.7 % (11.5-14.5); RED BLOOD CELL CT 4.96 /CUMM (4.70-6.10); WHITE BLOOD CELL COUNT 9.8 /CUMM (4.8-10.8)
--- NOTE | 2018-01-17 05:28 | RADIOLOGY REPORT ---
EXAMINATION: CHEST 1 VIEW CLINICAL INFORMATION: Shortness of breath. COMPARISON: January 14, 2018. TECHNIQUE: An AP view of the chest is provided. FINDINGS: In consideration of low lung volumes, the cardiac silhouette is stable. The mediastinal and hilar contours are unremarkable. There are neither pleural effusions nor pneumothoraces. There are no consolidations. The osseous structures are unremarkable. IMPRESSION: Limited exam due to low lung volumes, though no discernible acute consolidations.
[2018-01-17 08:00] VITALS: BP 106/70
--- NOTE | 2018-01-17 08:23 | PN- Resident CRCU ---
Cecy PRIETO,Veto 01/17/18 0822: Subjective HPI/CRCU Issues: Substance abuse, alcohol withdrawal, requiring IV Ativan drip, and intubation, currently withdrawal symptoms fluctuating and extubated already. 24 Hour Events: I followed up and examined the patient today. He is resting comfortably in bed, intubated, sometimes pushing his legs to move around. He is on soft restraints only now. Overnight, he was reported to be very drowsy, and IV Ativan drip was held by the night housestaff team. However, he missed his last labrum dose ( last night) as well, thus giving the round in the morning, we restarted IV Ativan drip again to avoid seizure/withdrawal symptoms, as he has been on benzos. Planning to get lower on Precedex as well. VSS otherwise. Objective Vital Signs & I&O Last 8 Hrs of Vitals and I&O: Laboratory Tests 01/17/18 0335: Anion Gap 13, Estimated GFR > 60, Glucose 77, Calcium 9.4, Phosphorus 4.3, Magnesium 1.9, Total Bilirubin 1.2, AST 19, ALT 45, Albumin 3.6, CBC w Diff NO MAN DIFF REQ, RBC 4.96, MCV 89.5, MCH 30.8, MCHC 34.4, RDW 12.7, MPV 6.4 L, Gran % 76.2 H, Lymphocytes % 15.0 L, Monocytes % 6.3, Eosinophils % 2.0, Basophils % 0.5, Absolute Granulocytes 7.5 H, Absolute Lymphocytes 1.5, Absolute Monocytes 0.6, Absolute Eosinophils 0.2, Absolute Basophils 0 Vital Signs Date Time Temp Pulse Resp B/P B/P Pulse O2 O2 Flow FiO2 Mean Ox Delivery Rate 01/17 0400 89 Nasal 4.0L Cannula 01/17 0000 96.2 68 26 144/80 93 Nasal 2.0L Cannula 01/17 0000 92 Nasal 4.0L Cannula 01/16 2000 92 Nasal 2.0L Cannula 01/16 1600 96.2 92 28 150/90 93 Nasal 2.0L Cannula 01/16 1600 92 Nasal 2.0L Cannula 01/16 1200 92 Nasal 4.0L Cannula Intake & Output 01/17 1600 01/17 0800 01/17 0000 Intake Total 646 418 Output Total 450 600 Balance 196 -182 Intake, IV 646 418 Output, Urine 450 600 Exam General Appearance: alert, awake, anxious, intubated, mild distress, obese Other Physical Findings: Head: atraumatic, normal appearance Neck: normal inspection, supple Respiratory: coarse breath sounds, chest non-tender, on venti-mask at 55% Cardiovascular: regular rate/rhythm Gastrointestinal: normal bowel sounds, soft, non-tender Extremities: normal inspection, normal capillary refill, no edema Neuro: Drowsy, not speaking as before, but responsive at times. Current Medications: Current Medications Sig/Minerva Start time Last Medication Dose Route Stop Time Status Admin Acetaminophen 500 MG Q6-PRN PRN 01/07 1530 AC 01/13 IV 1130 Albuterol Sulfate 3 ML Q6P PRN 01/09 1000 AC INH Artificial Tears 2 GTT TID 01/08 0900 AC 01/17 OPH 0816 Chlordiazepoxide HCl 75 MG Q4 01/09 1000 AC 01/17 PO 0815 Dexmedetomidine HCl 1,000 MCG Q7H 01/16 1400 AC 01/17 Sodium Chloride 240 ML IV 0105 Dexmedetomidine HCl 400 MCG Q2H 01/16 0900 AZ 01/16 Sodium Chloride 96 ML IV 01/16 1359 1400 Dexmedetomidine HCl 400 MCG Q4H 01/15 1000 DC 01/16 Sodium Chloride 96 ML IV 0847 Divalproex Sodium 750 MG BID 01/15 1145 AC 01/17 PO 0815 Enoxaparin Sodium 40 MG DAILY 01/07 0900 AC 01/16 SC 0807 Folic Acid 1 MG DAILY 01/13 0900 AC 01/13 PO 0828 Lorazepam 100 MG Q14H 01/15 1630 AC 01/16 Sodium Chloride 1,000 ML IV 2229 Multivitamins 15 ML DAILY 01/13 0900 AC 01/13 PO 0827 Nicotine 14 MG DAILY 01/14 1115 AC 01/17 TOP 0815 Pantoprazole Sodium 40 MG DAILY 01/07 0900 AC 01/17 IV 0815 Quetiapine Fumarate 50 MG Q6 01/15 1030 AC 01/16 PO 2328 Thiamine HCl 100 MG DAILY 01/13 0900 AC 01/13 PO 0828 Impression/Plan Impression/Problem List Impression: 37-year-old gentleman, recently discharged from [facility] on Dec 01 2017, admitted again on January 07 for suicidal attempt, BIBA from home after another suicidal attempt after overdosing on olanzapine 20 milligram, melatonin and trazodone 100 milligram tabs. According to EMS, 70 pills were missing- since last fill date. Assessment and plan- Respiratory On presentation the patient was intubated inability to protect airway and resp distress, altered mental status and at some point was saturating 88% on 3 L which represents an episode of hypoxia. The patient was intubated for a total of 6 days and extubated on January 13 after showing very good weaning trials. Postextubation the patient has been maintained saturation while on 4 L oxygen through NC at around 96% and now is on venti mask at 55%. Patient passed swallow evaluation ONLY for medication and is not safe to take food yet. We have restarted his oral medications and will have a repeat swallow evaluation tomorrow. Will continue trc/nebs PRN. Infectious Chest x-ray showed evidence of right lower lung opacity suggestive of aspiration pneumonia. He was started on Unasyn and vancomycin but vancomycin was stopped after he grew methicillin sensitive Staphylococcus aureus. Patient received 7 days of IV Unasyn and is off antibiotics since January 14. No fever or leukocytosis currently. Cardiovascular Remains stable cardiovascular events. latest EKG showed normal QTC at 440. (safe to give antipsychotics if necessary) Neurology Patient was agitated post extubation and was initially on 4 point hard restraints, but now seems to be less agitated, and is on bilateral upper extremity soft restraints only. Patient takes multiple psychiatric medications and was seen by psychiatrist who recommended resuming home antipsychotic medication once patient can take orally. From January 15 the patient was started on his Depakote 750 mg twice a day and Seroquel 50 mg every 6. Psychiatry will continue to see the patient and to provide subsequent dosing for the antipsychotic medications. -Seroquel can be increased to 100 mg every 6 hours if behavioral problems continue to exist per Psych -Appreciate Psych recs Metabolic Patient's electrolytes remain stable. No issues. Psychiatry #History of suicide attempts, substance abuse and currently here for overdose/SI Multiple attempts in the past and admissions. Patient has been by psychiatry daily since extubation and will continue to review the patient as his interaction level increases. Plan to be transferred to Inpatient Psychiatry once cleared medically. -Ativan was held overnight for increased sedation, and he missed his last evening's Librium. Precedex is continuing at low rate. To avoid risk of benzo withdrawal and seizure, plan to taper Precedex but keep IV Ativan drip, at low rate and slow taper from then. MISC Diet: Currently NPO, will repeat swallow eval tomorrow for PO meals. Given his medical condition including behavioral condition, NG tube might be risky and not useful since he is now extubated and is slowly getting abck to his responsiveness and might pass swallow eval soon. If not, we will have to start NG tube-feed him. DVT ppx: SQ Lovenox Code status: Full code Problem List: 1. Suicide attempt 2. Alcohol withdrawal 3. Polysubstance abuse Pain Ratin (unable to get feedback) Pain Goal: Pain 4 or less Pain Plan: prn Tomorrow's Labs & Rationales: CBC, ICU lab bundle Plan DVT/Prophylaxis: mechanical, pharmacological [place] MD 01/17/18 0855: Attending MD Review Statement Attending Sign Off Attending Cosign Statement: I have: examined this patient, reviewed [employer] EMR data, personally reviewd images, discussd w/resident/PA/HAND CELL TUBER, discussed mgmt plan w/anuj, discussed mgmt plan w/CM, discussed mgmt plan w/pt, agreed w/resident/PA/HAND CELL TUBER, amended to note. Other Findings: Impression 37 year old man * Extubated after drug overdose/suicide attempt - significant psychiatric history of anxiety/depression/bipolar d/o and suicidal attempt, admitted to the ICU with an overdose of multiple medications mostly trazadone per records * s/p tx for aspiration pneumonia (RLL opacity) Plan Respiratory/ID -extubated -on precedex and ativan -s/p unasyn CVS -hemodynamic monitoring -will periodically monitor QT Heme -stable Metabolic -ins/outs -replete electrolytes Alimentary -can swallow pills, continued swallowing evaluation Neuro -crisis/psych appreciated -ativan titrate down, keep on precedex -depakote starting DVT prophylaxis at all times TTS 35 min
[2018-01-17 12:00] VITALS: BP 102/46
[2018-01-17 16:00] VITALS: BP 102/64
[2018-01-18] VITALS: BP 143/72
[2018-01-18 05:36] LABS: ABSOLUTE BASOPHIL COUNT 0 /CUMM (0.0-0.2); ABSOLUTE EOSINOPHIL COUNT 0.2 /CUMM (0.0-0.7); ABSOLUTE GRANULOCYTE CT 8.7 /CUMM (1.4-6.5); ABSOLUTE LYMPH COUNT 1.1 /CUMM (1.2-3.4); ABSOLUTE MONOCYTE COUNT 0.3 /CUMM (0.10-0.60); BASOPHIL % 0.2 % (0.0-2.0); EOSINOPHIL % 1.6 % (0-5); GRANULOCYTE % 84.3 % (42.2-75.2); HEMATOCRIT 43.5 % (42-52); MEAN CORPUSCULAR HGB 30.9 PG (27.0-31.0); MEAN CORPUSCULAR HGB CONC 34.7 G/DL (33.0-37.0); MEAN PLATELET VOLUME 6.7 FL (7.4-10.4); PLATELET COUNT 379 /CUMM (130-400); RBC DISTRIBUTION WIDTH 12.7 % (11.5-14.5); RED BLOOD CELL CT 4.89 /CUMM (4.70-6.10); WHITE BLOOD CELL COUNT 10.4 /CUMM (4.8-10.8)
[2018-01-18 08:00] VITALS: BP 140/80
--- NOTE | 2018-01-18 08:18 | PN- Resident CRCU ---
Roxi Carbajal 01/18/18 0814: Subjective HPI/CRCU Issues: 1. Substance abuse 2. alcohol withdrawal 24 Hour Events: Mr Espinoza is still drowsy, but arousable to verbal stimulus. No chest pain, palpitations, short of breath. Currently is on Ventimask. Temperature 97.7-98.7 Heart rate in the range of 70-113, normal sinus rhythm Respiration 24-31 Blood pressure in the range of 123-148, 52-79 SAS 3-4 55% FiO2 on Ventimask, pulse ox range 91-95% Ins and outs 24 hours-intake 961, output 1010 mL Total 39172 mL, output 09914 mL Objective Vital Signs & I&O Last 8 Hrs of Vitals and I&O: Vital Signs Date Time Temp Pulse Resp B/P B/P Pulse O2 O2 Flow FiO2 Mean Ox Delivery Rate 01/18 0400 91 Venti Mask 55% 01/18 0000 95 Venti Mask 55% 01/18 0000 98.7 90 24 143/72 95 Venti Mask 55% 01/17 2000 95 Venti Mask 55% 01/17 1600 91 Venti Mask 55% 01/17 1600 98.3 103 28 102/64 91 Venti Mask 55% 01/17 1200 92 Venti Mask 55% 01/17 1200 97.7 89 24 102/46 92 Venti Mask 55% Exam General Appearance: no apparent distress Other Physical Findings: General Appearance: drowsy, awake, anxious, no acute distress obese Other Physical Findings: Head: atraumatic, normal appearance Neck: normal inspection, supple Respiratory: coarse breath sounds, chest non-tender, on venti-mask at 55% Cardiovascular: regular rate/rhythm Gastrointestinal: normal bowel sounds, soft, non-tender Extremities: normal inspection, normal capillary refill, no edema Neuro: Drowsy, not speaking as before, but responsive to verbal stimulus Current Medications: Current Medications Sig/Minerva Start time Last Medication Dose Route Stop Time Status Admin Acetaminophen 500 MG Q6-PRN PRN 01/07 1530 DC 01/13 IV 1130 Acetylcysteine 2 ML BID 01/17 1300 DC INH 01/19 2300 Albuterol Sulfate 3 ML Q6P PRN 01/09 1000 AC INH Artificial Tears 2 GTT TID 01/08 0900 DC 01/18 OPH 0839 Chlordiazepoxide HCl 75 MG Q4 01/09 1000 AC 01/18 PO 0533 Dexmedetomidine HCl 1,000 MCG Q7H 01/16 1400 DC 01/18 Sodium Chloride 240 ML IV 0839 Dextrose/Sodium 1,000 ML Q13H 01/18 0930 AC 01/18 Chloride IV 01/19 1129 0947 Divalproex Sodium 750 MG BID 01/15 1145 AC 01/18 PO 0838 Enoxaparin Sodium 40 MG DAILY 01/07 0900 AC 01/18 SC 0838 Folic Acid 1 MG DAILY 01/13 0900 AC 01/18 PO 0838 Lorazepam 100 MG Q14H 01/15 1630 AC 01/18 Sodium Chloride 1,000 ML IV 0838 Multivitamins 15 ML DAILY 01/13 0900 AC 01/18 PO 0838 Nicotine 14 MG DAILY 01/14 1115 DC 01/18 TOP 0838 Omeprazole 40 MG DAILY AC 01/19 0700 AC PO Pantoprazole Sodium 40 MG DAILY 01/07 0900 DC 01/18 IV 0838 Quetiapine Fumarate 50 MG Q6 01/15 1030 AC 01/18 PO 0532 Sodium Chloride 2 SPRAY Q4P PRN 01/18 0930 AC CRIS Thiamine HCl 100 MG DAILY 01/13 0900 AC 01/18 PO 0838 Antibiotics Antibiotics? none Impression/Plan Impression/Problem List Impression: Mr Espinoza is a 37-year-old gentleman, recently discharged from [facility] on Dec 01 2017, admitted again on January 07 for suicidal attempt, BIBA from home after another suicidal attempt after overdosing on olanzapine 20 milligram, melatonin and trazodone 100 milligram tabs. According to EMS, 70 pills were missing- since last fill date. Pertinent lab findings in the last 24 hours: WBC 10.4, Hb 15.1, Platelets 379 Na 139, K 4.2, HCO3 22 Renal function- BUN 21, Sr Cr 0.9 AST 15, ALT 40. Chest x ray 01/17/18- Limited exam due to low lung volumes, though no discernible acute consolidations. Plan: 1. Respiratory: He was intubated for airway protection in the setting of AMS and acute respiratory distress and hypoxemia. The patient was intubated for a total of 6 days and extubated on January 13 after showing very good weaning trials. Postextubation the patient has been maintained saturation while on 4 L oxygen through [place] at around 96% and now is on venti mask at 55%. Patient passed swallow evaluation ONLY for medication and is not safe to take food yet. Currently on meds only. Currently albuterol prn. 2. Infectious: Chest x-ray showed evidence of right lower lung opacity suggestive of aspiration pneumonia. He was started on Unasyn and vancomycin but vancomycin was stopped after he grew methicillin sensitive Staphylococcus aureus. Patient received 7 days of IV Unasyn and is off antibiotics since January 14. No fever or leukocytosis currently. Currently stable. Monitor for fever. Check cxr in the am. 3. Cardiovascular: Remains stable cardiovascular events. latest EKG showed normal QTC at 440. (safe to give antipsychotics if necessary). 4. Neurology: Patient was agitated post extubation and was initially on 4 point hard restraints, but now seems to be less agitated, and is on bilateral upper extremity soft restraints only. Patient takes multiple psychiatric medications and was seen by psychiatrist who recommended resuming home antipsychotic medication once patient can take orally. From January 15 the patient was started on his Depakote 750 mg twice a day and Seroquel 50 mg every 6. Psychiatry will continue to see the patient and to provide subsequent dosing for the antipsychotic medications. -Seroquel can be increased to 100 mg every 6 hours if behavioral problems continue to exist per Psych -Appreciate Psych recs 5. Metabolic: Patient's electrolytes remain stable. No issues. 6. Psychiatry: History of suicide attempts, substance abuse and currently here for overdose/SI Multiple attempts in the past and admissions. Patient has been by psychiatry daily since extubation and will continue to review the patient as his interaction level increases. Plan to be transferred to Inpatient Psychiatry once cleared medically. To avoid risk of benzo withdrawal and seizure, Precedex was tapered off, but would continue IV Ativan drip, at low rate and slow taper from then. Continue librium. ICU chesklist: #1 Central line- none. #2 Arterial line- none. #3 Molina catheter- Inserted 01/07 #4 Rectal tube- none. #5 NG tube- none. Might consider, if the pt is still not able to eat. #6 IV/peripheral line- present #7 IV drips- D5 1/2 NS @ 75ml/hr. #8 Vent settings- currently extubated. Currently Ventimask 55% FiO2. #9 pressors - none. #10 Diet: Currently NPO, Follow up on swallow eval. Given his medical condition including behavioral condition, NG tube might be risky. If he is more awake in the am, his nutritional needs should be addressed. #11 GI ppx- Protonix po #12 DVT PPx- Lovenox sc. Problem List: 1. Suicidal deliberate poisoning 2. Respiratory alkalosis 3. Mental status change 4. JESS (acute kidney injury) 5. Polysubstance abuse Pain Ratin Tomorrow's Labs & Rationales: cbc cmp Plan DVT/Prophylaxis: mechanical, pharmacological [place] MD 01/18/18 0935: Attending MD Review Statement Attending Sign Off Attending Cosign Statement: I have: examined this patient, reviewed [employer] EMR data, personally reviewd images, discussd w/resident/PA/REAL ESTATE VALUER, discussed mgmt plan w/anuj, discussed mgmt plan w/CM, discussed mgmt plan w/pt, agreed w/resident/PA/REAL ESTATE VALUER, amended to note. Other Findings: Impression 37 year old man * Extubated after drug overdose/suicide attempt - significant psychiatric history of anxiety/depression/bipolar d/o and suicidal attempt, admitted to the ICU with an overdose of multiple medications mostly trazadone per records * s/p tx for aspiration pneumonia (RLL opacity) Plan Respiratory/ID -on precedex and ativan -s/p unasyn CVS -hemodynamic monitoring -will periodically monitor QT Heme -stable Metabolic -ins/outs -replete electrolytes Alimentary -can swallow pills, continued swallowing evaluation -begin d51/2ns @75cc until can eat Neuro -crisis/psych appreciated -ativan titrate down, dc precedex -depakote DVT prophylaxis at all times TTS 35 min
[2018-01-18 16:00] VITALS: BP 126/70
--- NOTE | 2018-01-18 17:27 | RADIOLOGY REPORT ---
EXAMINATION: XR PORTABLE CHEST CLINICAL INFORMATION: Shortness of breath and decreased saturation. Rule out aspiration pneumonia. COMPARISON: Chest radiograph 01/17/2018 TECHNIQUE: Portable frontal view of the chest was obtained. FINDINGS: There are low volumes with bibasilar atelectasis. Possible retrocardiac opacity with underlying infiltrate not excluded. The upper lungs are clear. No large volume effusion or pneumothorax. The cardiomediastinal silhouette is stable. IMPRESSION: Low lung volumes and bibasilar atelectasis. Possible retrocardiac opacity with underlying infiltrate not excluded.
--- NOTE | 2018-01-18 22:04 | Event Note ---
Event Note Event Note: S: The nursing staff told me that patient is obtunded and he is not arousable with painful stimuli. B:37 yo M, recently discharged from [facility] on Dec 01 2017, admitted again on January 07 for suicidal attempt, KENNY from home after another suicidal attempt after overdosing on olanzapine 20 milligram, melatonin and trazodone 100 milligram tabs. According to EMS, 70 pills were missing- since last fill date. A/P: Patient was seen he was hemodynamically stable, blood pressure 124/64, oxygen saturation 92% on 60% high flow oxygen. Patient was not responding to sternal rub. Possibly patient is obtunded and due to excessive sedation Patient's Precedex has been discontinued and his active and decreased to 1 mg. We will check ABGs to see if patient is retaining CO2. Patient was reevaluated again and he was opening his eyes to verbal command. We will reassess the patient again and continue holding his Ativan.
[2018-01-18 23:35] VITALS: BP 124/64
[2018-01-19 04:18] LABS: ABSOLUTE BASOPHIL COUNT 0 /CUMM (0.0-0.2); ABSOLUTE EOSINOPHIL COUNT 0.3 /CUMM (0.0-0.7); ABSOLUTE GRANULOCYTE CT 5.5 /CUMM (1.4-6.5); ABSOLUTE LYMPH COUNT 1.2 /CUMM (1.2-3.4); ABSOLUTE MONOCYTE COUNT 0.3 /CUMM (0.10-0.60); BASOPHIL % 0.2 % (0.0-2.0); EOSINOPHIL % 4.2 % (0-5); GRANULOCYTE % 75.1 % (42.2-75.2); MEAN CORPUSCULAR HGB 31.5 PG (27.0-31.0); MEAN CORPUSCULAR HGB CONC 34.5 G/DL (33.0-37.0); MEAN CORPUSCULAR VOLUME 91.3 FL (80.0-94.0); MEAN PLATELET VOLUME 6.5 FL (7.4-10.4); PLATELET COUNT 381 /CUMM (130-400); RBC DISTRIBUTION WIDTH 12.9 % (11.5-14.5); RED BLOOD CELL CT 4.06 /CUMM (4.70-6.10); WHITE BLOOD CELL COUNT 7.3 /CUMM (4.8-10.8)
[2018-01-19 04:23] LABS: HEMATOCRIT 37.1 % (42-52)
--- NOTE | 2018-01-19 07:08 | PN- Resident CRCU ---
Cecy PRIETO,Veto 01/19/18 0707: Subjective HPI/CRCU Issues: Substance abuse, alcohol withdrawal, requiring IV Ativan drip/precedex/librium, and intubation, currently withdrawal symptoms fluctuating and extubated already. 24 Hour Events: I followed up and examined the patient this morning. He remains in bed, ventilated via venti-mask at 60% O2. He is on restraints, and nursing staff and I examined him together. He is much more responsive and following instructions today. He was oriented to the new environment by the nursing staff, although he was not sure if was "that sick". Overnight, his vitals have remained stable. Tmax: 101.3 F Objective Vital Signs & I&O Last 8 Hrs of Vitals and I&O: Vital Signs Date Time Temp Pulse Resp B/P B/P Pulse O2 O2 Flow FiO2 Mean Ox Delivery Rate 01/19 0400 95 Aerosol 60% Mask 01/19 0000 97 Aerosol 60% Mask 01/18 2335 97.2 87 36 124/64 92 01/18 2000 91 Aerosol 60% Mask 01/18 1725 98.1 01/18 1629 100.6 01/18 1600 87 Venti Mask 55% 01/18 1600 101.3 122 40 126/70 87 Venti Mask 55% 01/18 1200 94 Venti Mask 55% 01/18 0800 94 Venti Mask 55% 01/18 0800 98.2 104 26 140/80 94 Venti Mask 55% Intake & Output 01/19 0800 01/19 0000 01/18 1600 Intake Total 641 782 690 Output Total 230 320 400 Balance 411 462 290 Intake, IV 641 782 660 Intake, Oral 30 Number 0 2 Bowel Movements Output, Urine 230 320 400 Patient 106.651 kg Weight Weight Bed scale Measurement Method Exam General Appearance: no apparent distress, alert, obese, drowsy Other Physical Findings: Head: atraumatic, normal appearance Mucosa: coated tongue but moist Neck: normal inspection, supple Respiratory: b/l netter breath sounds noted today, chest non-tender, on venti- mask at 60% Cardiovascular: regular rate/rhythm Gastrointestinal: normal bowel sounds, soft, non-tender Extremities: normal inspection, normal capillary refill, mild edema+, moving all four extremities Neuro: Drowsy, not speaking as before, but responsive at times, no seixure Current Medications: Current Medications Sig/Minerva Start time Last Medication Dose Route Stop Time Status Admin Acetaminophen 500 MG ONCE ONE 01/18 1545 DC 01/18 IV 01/18 1546 1629 Acetaminophen 500 MG Q6-PRN PRN 01/07 1530 DC 01/13 IV 1130 Acetylcysteine 2 ML BID 01/17 1300 DC INH 01/19 2300 Albuterol Sulfate 3 ML Q6P PRN 01/09 1000 DC 01/18 INH 1603 Artificial Tears 2 GTT TID 01/08 0900 DC 01/18 OPH 0839 Benzonatate 100 MG TID 01/18 1521 AC PO Chlordiazepoxide HCl 75 MG Q4H 01/19 0400 AC 01/19 PO 0400 Chlordiazepoxide HCl 75 MG Q4 01/09 1000 DC 01/18 PO 1803 Dexmedetomidine HCl 1,000 MCG Q24H 01/18 2300 CAN Sodium Chloride 240 ML IV Dexmedetomidine HCl 1,000 MCG Q7H 01/18 1730 DC Sodium Chloride 240 ML IV Dexmedetomidine HCl 1,000 MCG Q7H 01/16 1400 DC 01/18 Sodium Chloride 240 ML IV 0839 Dextrose/Sodium 1,000 ML Q13H 01/18 0930 AC 01/18 Chloride IV 01/19 1129 2221 Divalproex Sodium 750 MG BID 01/15 1145 AC 01/18 PO 0838 Enoxaparin Sodium 40 MG DAILY 01/07 09 AC 01/18 SC 0838 Famotidine 20 MG DAILY 01/19 0900 AC PO Fluticasone 2 SPRAY DAILY 01/18 1615 AC 01/18 Propionate CRIS 1803 Folic Acid 1 MG DAILY 01/13 09 AC 01/18 PO 0838 Lorazepam 100 MG Q14H 01/15 1630 AC 01/18 Sodium Chloride 1,000 ML IV 0838 Multivitamins 15 ML DAILY 01/13 09 AC 01/18 PO 0838 Nicotine 14 MG DAILY 01/14 1115 DC 01/18 TOP 0838 Omeprazole 40 MG DAILY AC 01/19 07 CAN PO Pantoprazole Sodium 40 MG DAILY 01/07 09 DC 01/18 IV 0838 Quetiapine Fumarate 50 MG Q6 01/15 1030 AC 01/18 PO 1803 Sodium Chloride 2 SPRAY Q4P PRN 01/18 0930 AC 01/18 CRIS 1152 Thiamine HCl 100 MG DAILY 01/13 0900 AC 01/18 PO 0838 Impression/Plan Impression/Problem List Impression: 37-year-old gentleman, recently discharged from [facility] on Dec 01 2017, admitted again on January 07 for suicidal attempt, KENNY from home after another suicidal attempt after overdosing on olanzapine 20 milligram, melatonin and trazodone 100 milligram tabs. According to EMS, 70 pills were missing- since last fill date. Assessment and plan- Respiratory On presentation the patient was intubated inability to protect airway and resp distress, altered mental status and at some point was saturating 88% on 3 L which represents an episode of hypoxia. The patient was intubated for a total of 6 days and extubated on January 13 after showing very good weaning trials. Postextubation the patient has been maintained saturation on venti mask at 60%. Patient has not passed swallow evaluation yet due to inability to follow instructions, but today he is following instructions, so will get a swallow eval possibly MBS. Will continue trc/nebs PRN. Infectious Chest x-ray showed evidence of right lower lung opacity suggestive of aspiration pneumonia. He was started on Unasyn and vancomycin but vancomycin was stopped after he grew methicillin sensitive Staphylococcus aureus. Patient received 7 days of IV Unasyn and is off antibiotics since January 14.One episode of fever yesterday , and blood cultures were sent then, no growth so far. No leukocytosis/ banedmia though. Still off abx. Cardiovascular Remains stable cardiovascular events. latest EKG showed normal QTC at 440. (safe to give antipsychotics if necessary) Neurology Patient was agitated post extubation and was initially on 4 point hard restraints, but now seems to be less agitated, and is on bilateral upper extremity soft restraints only. Patient takes multiple psychiatric medications and was seen by psychiatrist who recommended resuming home antipsychotic medication once patient can take orally. From January 15 the patient was started on his Depakote 750 mg twice a day and Seroquel 50 mg every 6h. Psychiatry will continue to see the patient and to provide subsequent dosing for the antipsychotic medications. -Seroquel can be increased to 100 mg every 6 hours if behavioral problems continue to exist per Psych -Appreciate Psych recs Metabolic Patient's electrolytes remain stable. No issues. Repleted K today. Psychiatry #History of suicide attempts, substance abuse and currently here for overdose/SI Multiple attempts in the past and admissions. Patient has been by psychiatry daily since extubation and will continue to review the patient as his interaction level increases. Plan to be transferred to Inpatient Psychiatry once cleared medically. -Precedex was stopped finally last night after he was found to be oversedated. IV Ativan still running at lower rate now, and changed Librium 75 mg q4h to 75 q6h. MISC Diet: Currently NPO DVT ppx: SQ Lovenox Code status: Full code Problem List: 1. Alcohol withdrawal 2. Polysubstance overdose 3. Suicidal deliberate poisoning Pain Ratin (pt unable to interact) Pain Goal: Pain 4 or less Pain Plan: prn Tomorrow's Labs & Rationales: ICU lab bundle, CBC Plan DVT/Prophylaxis: mechanical, pharmacological [place] MD 01/19/18 0842: Attending MD Review Statement Attending Sign Off Attending Cosign Statement: I have: examined this patient, [email or web address], personally reviewd images, discussd w/resident/PA/JEWEL GAUGER, discussed mgmt plan w/anuj, discussed mgmt plan w/CM, discussed mgmt plan w/pt, agreed w/resident/PA/JEWEL GAUGER, amended to note. Other Findings: Impression 37 year old man * Extubated after drug overdose/suicide attempt - significant psychiatric history of anxiety/depression/bipolar d/o and suicidal attempt, admitted to the ICU with an overdose of multiple medications mostly trazadone per records * s/p tx for aspiration pneumonia (RLL opacity) Plan Respiratory/ID -on precedex and ativan -s/p unasyn CVS -hemodynamic monitoring -will periodically monitor QT Heme -stable Metabolic -ins/outs -replete electrolytes Alimentary -can swallow pills, continued swallowing evaluation -begin d51/2ns @75cc until can eat Neuro -crisis/psych appreciated -ativan titrate down, precedex titrate -depakote DVT prophylaxis at all times TTS 35 min DVT prophylaxis at all times TTS 35 min
[2018-01-19 08:00] VITALS: BP 146/86
[2018-01-19 12:00] VITALS: BP 134/82
--- NOTE | 2018-01-19 14:24 | RADIOLOGY REPORT ---
EXAMINATION: XR MODIFIED BARIUM SWALLOW CLINICAL INFORMATION: Possible aspiration. COMPARISON: None TECHNIQUE: Fluoroscopic assistance was provided during a modified barium swallow performed in cooperation with the speech pathology service. FLUOROSCOPY TIME: 56 seconds NUMBER OF SAVED IMAGES: 5 screen captured images were saved. No spot fluoroscopy images were obtained. FINDINGS: The modified barium swallow examination was performed in cooperation with the speech pathologist using dynamic fluoroscopic imaging in a lateral projection. The patient's swallowing function was observed during administration of apple sauce puree and honey. Tracheal aspiration without an immediate cough reflex occurred when swallowing the applesauce puree. IMPRESSION: Aspiration of the barium coated applesauce was observed. Please refer to the speech pathology report regarding their assessment and treatment recommendations.
--- NOTE | 2018-01-19 14:26 | PN- Psychiatry ---
Assessment/Plan Impression: Patient remains sedated though less so. Lorazepam taper continues. Precedex has been discontinued. Patient now on reducing dose of chlordiazepoxide. Per notes patient was obtunded yesterday due to sedation. Patient is oriented, states "I just want to go home". Unable to obtain a full history. Staff concerned that patient appeared to be delusional about her perceived threat from all of his visitors. Patient reports that the conflict with this person existed prior to admission. Today he denies at this person is trying to harm him or anyone in his family although it is difficult to understand him. Difficult to ascertain at this point with her symptom is psychotic in origin. Spoke with staff on Inpatient Psychiatry who knows the patient well. They have not seen him psychotic during any of his admissions. Patient failed barium swallow today. As a result he is n.p.o. Suggestion: 1. Continue benzodiazepine taper 2. Patient will need to continue on Depakote and quetiapine. Suggest possible NG tube. Patient may also benefit from nutrition protocol. 3. Continue one-to-one observation for safety. 4. Psych will continue to see daily with full assessment when patient able to cooperate. Subjective Subjective: "I just want to go home" Objective Last 24 Hrs of Vital Signs/I&O Vital Signs Date Time Temp Pulse Resp B/P B/P Pulse O2 O2 Flow FiO2 Mean Ox Delivery Rate 01/19 1200 93 Nasal 5.0L Cannula 01/19 1200 98.0 87 20 134/82 93 Nasal 5.0L Cannula 01/19 0800 96 Aerosol 60% Mask 01/19 0800 99.4 84 22 146/86 96 Aerosol 60% Mask 01/19 0400 95 Aerosol 60% Mask 01/19 0000 97 Aerosol 60% Mask 01/18 2335 97.2 87 36 124/64 92 01/18 2000 91 Aerosol 60% Mask 01/18 1725 98.1 01/18 1629 100.6 01/18 1600 87 Venti Mask 55% 01/18 1600 101.3 122 40 126/70 87 Venti Mask 55% Intake & Output 01/19 1600 01/19 0800 06 0000 Intake Total 1120 641 782 Output Total 200 230 320 Balance 920 411 462 Intake, IV 880 641 782 Intake, Oral 240 Number 0 0 Bowel Movements Output, Urine 200 230 320 Patient 106.651 kg Weight Weight Bed scale Measurement Method
[2018-01-19 16:00] VITALS: BP 150/86
[2018-01-20] VITALS: BP 122/88
--- NOTE | 2018-01-20 07:04 | PN- Resident CRCU ---
Cecy PRIETO,Veto 01/20/18 0703: Subjective HPI/CRCU Issues: Substance abuse, alcohol withdrawal, requiring IV Ativan drip/precedex/librium, and intubation, currently withdrawal symptoms fluctuating and extubated already. 24 Hour Events: I followed up the patient today. He is up in the bed, more alert than yesterday , and is talking in longer sentences than yesterday as well, he is on nasal cannula, still on restraints though. He did deny that he wants to hurt himself today/right now, but did not respond clearly on asking if he would hurt anyone or if he had taken/done anything that was intentional, like a suicide attempt. Sitter still in place. Patient requiring frequent reorientation. Objective Vital Signs & I&O Last 8 Hrs of Vitals and I&O: Vital Signs Date Time Temp Pulse Resp B/P B/P Pulse O2 O2 Flow FiO2 Mean Ox Delivery Rate 01/20 0400 94 Nasal 5.0L Cannula 01/20 0000 97.4 80 22 122/88 96 Nasal 5.0L Cannula 01/20 0000 97 Nasal 5.0L Cannula 01/19 2000 98 Nasal 5.0L Cannula 01/19 1600 94 Nasal 5.0L Cannula 01/19 1600 98.4 86 22 150/86 94 Nasal 5.0L Cannula 01/19 1200 93 Nasal 5.0L Cannula 01/19 1200 98.0 87 20 134/82 93 Nasal 5.0L Cannula 01/19 0800 96 Aerosol 60% Mask 01/19 0800 99.4 84 22 146/86 96 Aerosol 60% Mask Intake & Output 01/20 0800 01/20 0000 01/19 1600 Intake Total 80 82 1120 Output Total 250 250 200 Balance -170 -168 920 Intake, IV 80 82 880 Intake, Oral 240 Number 0 Bowel Movements Output, Urine 250 250 200 Exam General Appearance: no apparent distress, awake, comfortable, obese, alightly drowsy, better than yesterday Other Physical Findings: Head: atraumatic, normal appearance Mucosa: coated tongue partially scraped from yesterday Neck: normal inspection, supple Respiratory: b/l breath sounds noted, chest non-tender, on NC, no distress Cardiovascular: regular rate/rhythm Gastrointestinal: normal bowel sounds, soft, non-tender Extremities: normal inspection, normal capillary refill, mild edema+, moving all four extremities Neuro: Drowsy, speaking better than before, confused at most of the times Current Medications: Current Medications Sig/Minerva Start time Last Medication Dose Route Stop Time Status Admin Albuterol Sulfate 3 ML Q4P PRN 01/19 0900 01/19 INH 0847 Benzonatate 100 MG TID 01/18 1521 01/19 PO 2113 Chlordiazepoxide HCl 75 MG Q6 01/19 1200 AC 01/19 PO 2309 Chlordiazepoxide HCl 75 MG Q4H 01/19 0400 AL 01/19 PO 0918 Dextrose/Sodium 1,000 ML Q13H 01/20 0645 01/20 Chloride IV 0653 Dextrose/Sodium 1,000 ML Q13H 01/18 0930 AL 01/18 Chloride IV 01/19 1129 2221 Divalproex Sodium 750 MG BID 01/15 1145 AC 01/19 PO 2113 Enoxaparin Sodium 40 MG DAILY 01/07 0900 01/19 SC 0851 Famotidine 20 MG DAILY 01/19 0900 01/19 PO 0919 Fluticasone 2 SPRAY DAILY 01/18 1615 AC 01/19 Propionate CRIS 0919 Folic Acid 1 MG DAILY 01/13 0900 AC 01/19 PO 0918 Lorazepam 100 MG Q14H 01/15 1630 AC 01/18 Sodium Chloride 1,000 ML IV 0838 Multivitamins 15 ML DAILY 01/13 0900 AC 01/19 PO 0918 Potassium Chloride 10 MEQ Q1H 01/19 0745 DC 01/19 IV 01/19 0846 0929 Potassium Chloride 40 MEQ ONCE ONE 01/19 0730 CAN PO 01/19 0731 Quetiapine Fumarate 50 MG Q6 01/15 1030 AC 01/19 PO 2309 Sodium Chloride 2 SPRAY Q4P PRN 01/18 0930 AC 01/18 CRIS 1152 Thiamine HCl 100 MG DAILY 01/13 0900 01/19 PO 0918 Impression/Plan Impression/Problem List Impression: 37-year-old gentleman, recently discharged from [facility] on Dec 01 2017, admitted again on January 07 for suicidal attempt, BIBA from home after another suicidal attempt after overdosing on olanzapine 20 milligram, melatonin and trazodone 100 milligram tabs. According to EMS, 70 pills were missing- since last fill date. Assessment and plan- Respiratory On presentation the patient was intubated inability to protect airway and resp distress, altered mental status and at some point was saturating 88% on 3 L which represents an episode of hypoxia. The patient was intubated for a total of 6 days and extubated on January 13 after showing very good weaning trials. Postextubation the patient has been maintained saturation initially on venti mask and now on nasal canula. Patient failed swallow evaluation by MBS on but he is doing better to swallow pills with apple sauce. Will continue trc/ nebs PRN. Infectious Chest x-ray showed evidence of right lower lung opacity suggestive of aspiration pneumonia. He was started on Unasyn and vancomycin but vancomycin was stopped after he grew methicillin sensitive Staphylococcus aureus. Patient received 7 days of IV Unasyn and is off antibiotics since January 14.One episode of fever yesterday , and blood cultures were sent then, no growth so far. No leukocytosis/ banedmia though. Still off abx. Cardiovascular Remains stable cardiovascular events. latest EKG showed normal QTC at 440. (safe to give antipsychotics if necessary) Neurology Patient was agitated post extubation and was initially on 4 point hard restraints, but now seems to be less agitated, and is on bilateral upper extremity soft restraints only. Patient takes multiple psychiatric medications and was seen by psychiatrist who recommended resuming home antipsychotic medication once patient can take orally. From January 15 the patient was started on his Depakote 750 mg twice a day and Seroquel 50 mg every 6h. -Changed Seroquel 50 mg q6 to TID today per psych recs -Appreciate Psychiatry service recommendations -Continue 1:1 sitter for now given his SI Metabolic Patient's electrolytes remain stable. No issues. Repleted K-phos IV today. Psychiatry #History of suicide attempts, substance abuse and currently here for overdose/SI Multiple attempts in the past and admissions. Patient has been followed by psychiatry daily since extubation and will continue to review the patient as his interaction level increases. Plan to be transferred to Inpatient Psychiatry once cleared medically. -Precedex was stopped on 01/19/18 -Ativan stopped on 01/20/18 -Continue Seroquel (dose lowered to TID as mentioned above) -Continue Librium taper MISC Diet: Currently NPO, OK for meds with apple sauce DVT ppx: SQ Lovenox Code status: Full code Problem List: 1. Suicidal deliberate poisoning 2. Alcohol withdrawal 3. Polysubstance overdose Pain Ratin (difficult to assess) Pain Goal: Pain 4 or less Pain Plan: prn Tomorrow's Labs & Rationales: CBC, ICU lab bundle Plan DVT/Prophylaxis: mechanical, pharmacological [place] MD 01/20/18 0858: Attending MD Review Statement Attending Sign Off Attending Cosign Statement: I have: examined this patient, reviewed al EMR data, personally reviewd images, discussd w/resident/PA/COUTIERIER, discussed mgmt plan w/anuj, discussed mgmt plan w/CM, discussed mgmt plan w/pt, agreed w/resident/PA/COUTIERIER, amended to note. Other Findings: Impression 37 year old man * Extubated after drug overdose/suicide attempt - significant psychiatric history of anxiety/depression/bipolar d/o and suicidal attempt, admitted to the ICU with an overdose of multiple medications mostly trazadone per records * s/p tx for aspiration pneumonia (RLL opacity) Plan Respiratory/ID -on precedex and ativan -s/p unasyn CVS -hemodynamic monitoring -will periodically monitor QT Heme -stable Metabolic -ins/outs -replete electrolytes Alimentary -can swallow pills, continued swallowing evaluation -D5 1/2ns @75cc until can eat Neuro -crisis/psych appreciated -ativan titrate down, off precedex -depakote DVT prophylaxis at all times TTS 35 min
[2018-01-20 08:00] VITALS: BP 142/82
--- NOTE | 2018-01-20 09:06 | PN- Psychiatry ---
Assessment/Plan Impression: 37 yo man with h/o unspecified bipola disorder, cocaine dependence, alcohol dependence and cannabis dependence admitted post intentional overdose. Initially ventilated. Agtiatied post extubation. Managed with dexmetomaddine and lorazepam, now lorazepam and chlordiazepoxide per medical team. Depakote resumed. Quetiapine added post extubation. Failed swallow tests thus far. Today pt is sedated, opens eyes when addressed. Calm. Suggestion: 1. Pt is oversedated. Continue BZD taper. Reduce quetiapine to tid and hold for sedation. 2. Management of anemia per medical team. 3. Med regimen erratic due to a combination of [t being npo (no NG tube) and sedation. VPA level of 54 acceptable in this situaiton. 3. Continue one-to-one observation for safety. 4. Psych will continue to see daily with full assessment when patient able to cooperate and likely admission to [facility] when pt medically cleared and bed available. Subjective Subjective: Pt not responding verbally due to sedation. Review of Systems: Well documented elsewhere; pt not responding verbally. Objective Last 24 Hrs of Vital Signs/I&O Vital Signs Date Time Temp Pulse Resp B/P B/P Pulse O2 O2 Flow FiO2 Mean Ox Delivery Rate 01/20 0812 91 Nasal 5.0L Cannula 01/20 0400 94 Nasal 5.0L Cannula 01/20 0000 97.4 80 22 122/88 96 Nasal 5.0L Cannula 01/20 0000 97 Nasal 5.0L Cannula 01/19 2000 98 Nasal 5.0L Cannula 01/19 1600 94 Nasal 5.0L Cannula 01/19 1600 98.4 86 22 150/86 94 Nasal 5.0L Cannula 01/19 1200 93 Nasal 5.0L Cannula 01/19 1200 98.0 87 20 134/82 93 Nasal 5.0L Cannula Intake & Output 01/20 1600 01/20 0800 01/20 0000 Intake Total 80 82 Output Total 250 250 Balance -170 -168 Intake, IV 80 82 Output, Urine 250 250 Physical Exam General Appearance: sedated Results Last 24 Hrs of Labs/Mics: Lab Hct 37.1 % L 01/19/18 0340 Hgb 12.8 G/DL L 01/19/18 0340 MCH 31.5 PG H 01/19/18 0340 MCV 91.3 FL 01/19/18 0340 RBC 4.06 /CUMM L 01/19/18 0340 Valproic Acid 54.0 ug/mL 01/20/18 0345
[2018-01-20 11:11] LABS: ABSOLUTE BASOPHIL COUNT 0 /CUMM (0.0-0.2); ABSOLUTE EOSINOPHIL COUNT 0.2 /CUMM (0.0-0.7); ABSOLUTE MONOCYTE COUNT 0.2 /CUMM (0.10-0.60); BASOPHIL % 0.4 % (0.0-2.0); EOSINOPHIL % 6.8 % (0-5); GRANULOCYTE % 58.8 % (42.2-75.2); HEMATOCRIT 38.8 % (42-52); MEAN CORPUSCULAR HGB 31.4 PG (27.0-31.0); MEAN CORPUSCULAR HGB CONC 34.5 G/DL (33.0-37.0); MEAN CORPUSCULAR VOLUME 91.1 FL (80.0-94.0); MEAN PLATELET VOLUME 6.5 FL (7.4-10.4); PLATELET COUNT 386 /CUMM (130-400); RBC DISTRIBUTION WIDTH 13.1 % (11.5-14.5); RED BLOOD CELL CT 4.26 /CUMM (4.70-6.10)
[2018-01-20 11:19] LABS: WHITE BLOOD CELL COUNT 3.5 /CUMM (4.8-10.8)
[2018-01-20 16:00] VITALS: BP 146/86
[2018-01-21] VITALS: BP 140/84
[2018-01-21 04:38] LABS: ABSOLUTE BASOPHIL COUNT 0 /CUMM (0.0-0.2); ABSOLUTE EOSINOPHIL COUNT 0.2 /CUMM (0.0-0.7); ABSOLUTE LYMPH COUNT 1.3 /CUMM (1.2-3.4); ABSOLUTE MONOCYTE COUNT 0.2 /CUMM (0.10-0.60); BASOPHIL % 0.4 % (0.0-2.0); EOSINOPHIL % 5.9 % (0-5); GRANULOCYTE % 52.7 % (42.2-75.2); HEMATOCRIT 39.2 % (42-52); MEAN CORPUSCULAR HGB 31.3 PG (27.0-31.0); MEAN CORPUSCULAR HGB CONC 34.5 G/DL (33.0-37.0); MEAN CORPUSCULAR VOLUME 90.8 FL (80.0-94.0); MEAN PLATELET VOLUME 6.1 FL (7.4-10.4); PLATELET COUNT 422 /CUMM (130-400); RED BLOOD CELL CT 4.31 /CUMM (4.70-6.10); WHITE BLOOD CELL COUNT 3.8 /CUMM (4.8-10.8)
--- NOTE | 2018-01-21 07:40 | PN- Resident CRCU ---
Cecy PRIETO,Veto 01/21/18 0739: Subjective HPI/CRCU Issues: Substance abuse, alcohol withdrawal, requiring IV Ativan drip/precedex/librium, and intubation, currently withdrawal symptoms fluctuating and extubated already. 24 Hour Events: I followed up the patient today. He is up in the bed, more alert than yesterday , and is talking in longer sentences than yesterday as well, he is on nasal cannula, NOT on restraints today. ?SI (not answering clearly). 1:[address] No issues with meds with apple sauce, but didn't fare well with bedside swallow eval. Will go for MBS study tomorrow. VSS. Objective Vital Signs & I&O Last 8 Hrs of Vitals and I&O: Vital Signs Date Time Temp Pulse Resp B/P B/P Pulse O2 O2 Flow FiO2 Mean Ox Delivery Rate 01/21 0400 94 Nasal 5.0L Cannula 01/21 0000 98.4 76 22 140/84 92 Nasal 5.0L Cannula 01/21 0000 94 Nasal 5.0L Cannula 01/20 2113 94 Nasal 5.0L Cannula 01/20 2000 94 Nasal 5.0L Cannula 01/20 1600 Nasal 5.0L Cannula 01/20 1600 97.8 82 24 146/86 91 Nasal 5.0L Cannula 01/20 1200 93 Nasal 5.0L Cannula 01/20 0812 91 Nasal 5.0L Cannula 01/20 0800 Nasal 5.0L Cannula 01/20 0800 97.7 82 18 142/82 91 Nasal 5.0L Cannula Intake & Output 01/21 0800 01/21 0000 01/20 1600 Intake Total 580 469 621 Output Total 300 225 200 Balance 280 244 421 Intake, IV 580 469 621 Number 0 Bowel Movements Output, Urine 300 225 200 Exam General Appearance: no apparent distress, awake, comfortable, obese, drowsy Other Physical Findings: Head: atraumatic, normal appearance Mucosa: coated tongue partially scraped from yesterday Neck: normal inspection, supple Respiratory: b/l breath sounds noted, chest non-tender, on NC, no distress Cardiovascular: regular rate/rhythm Gastrointestinal: normal bowel sounds, soft, non-tender Extremities: normal inspection, normal capillary refill, mild edema+, moving all four extremities, NO restraints Neuro: Drowsy, speaking better than before, confused at most of the times, has tried unsafe ambulation couple of times today Nutrition Nutrition: NPO (except for PO meds with a/s) Current Medications: Current Medications Sig/Minerva Start time Last Medication Dose Route Stop Time Status Admin Albuterol Sulfate 3 ML Q4P PRN 01/19 0900 AC 01/19 INH 0847 Benzonatate 100 MG TID 01/18 1521 AC 01/20 PO 2111 Chlordiazepoxide HCl 75 MG Q8 01/20 1400 DC PO Chlordiazepoxide HCl 50 MG Q6H 01/20 1400 AC 01/20 PO 2111 Chlordiazepoxide HCl 50 MG Q6 01/20 1200 DC 01/20 PO 1439 Chlordiazepoxide HCl 75 MG Q6 01/19 1200 DC 01/19 PO 2309 Dextrose/Sodium 1,000 ML Q13H 01/20 0645 AC 01/21 Chloride IV 0050 Divalproex Sodium 750 MG BID 01/15 1145 AC 01/20 PO 2110 Enoxaparin Sodium 40 MG DAILY 01/07 0900 AC 01/20 SC 0952 Famotidine 20 MG DAILY 01/19 0900 AC 01/20 PO 0952 Fluticasone 2 SPRAY DAILY 01/18 1615 AC 01/20 Propionate CRIS 0957 Folic Acid 1 MG DAILY 01/13 09 01/20 PO 0952 Lorazepam 100 MG Q14H 01/15 1630 DC 01/18 Sodium Chloride 1,000 ML IV 0838 Multivitamins 15 ML DAILY 01/13 0900 AC 01/20 PO 0952 Potassium Phosphate 15 mMol ONE ONE 01/20 1500 ND 01/20 Sodium Chloride 250 ML IV 01/20 1904 1610 Quetiapine Fumarate 50 MG TID 01/20 0930 AC 01/20 PO 2111 Quetiapine Fumarate 50 MG Q6 01/15 1030 DC 01/19 PO 2309 Sodium Chloride 2 SPRAY Q4P PRN 01/18 0930 AC 01/18 CRIS 1152 Thiamine HCl 100 MG DAILY 01/13 0900 01/20 PO 0952 Impression/Plan Impression/Problem List Impression: 37-year-old gentleman, recently discharged from [facility] on Dec 01 2017, admitted again on January 07 for suicidal attempt, BIBA from home after another suicidal attempt after overdosing on olanzapine 20 milligram, melatonin and trazodone 100 milligram tabs. According to EMS, 70 pills were missing- since last fill date. Assessment and plan- Respiratory On presentation the patient was intubated inability to protect airway and resp distress, altered mental status and at some point was saturating 88% on 3 L which represents an episode of hypoxia. The patient was intubated for a total of 6 days and extubated on January 13 after showing very good weaning trials. Postextubation the patient has been maintained saturation initially on venti mask and now on nasal canula. Patient failed swallow evaluation by MBS on but he is doing better to swallow pills with apple sauce. Today, he failed bedside swallow evaluation but was deemed okay for medications with applesauce. He will get modified barium swallow study tomorrow 01/22/2018. Will continue trc /nebs PRN. Infectious Chest x-ray showed evidence of right lower lung opacity suggestive of aspiration pneumonia. He was started on Unasyn and vancomycin but vancomycin was stopped after he grew methicillin sensitive Staphylococcus aureus. Patient received 7 days of IV Unasyn and is off antibiotics since January 14.One episode of fever yesterday , and blood cultures were sent then, no growth so far. No leukocytosis/ banedmia though. Still off abx. Cardiovascular Remains stable cardiovascular events. Latest EKG showed normal QTC at 440. (safe to give antipsychotics if necessary) Neurology Patient was agitated post extubation and was initially on 4 point hard restraints, but now seems to be less agitated, and even the bilateral upper extremity soft restraints are off today 01/21/18. Patient takes multiple psychiatric medications and was seen by psychiatrist who recommended resuming home antipsychotic medication once patient can take orally. From January 15 the patient was started on his Depakote 750 mg twice a day and Seroquel 50 mg now TID per Psych recs. -Changed Seroquel 50 mg q6 to TID 01/20/18 per psych recs -Appreciate Psychiatry service recommendations -Continue 1:1 sitter for now given his SI Metabolic Patient's electrolytes remain stable. No issues. Repleted K-phoyonny PO today. Psychiatry #History of suicide attempts, substance abuse and currently here for overdose/SI Multiple attempts in the past and admissions. Patient has been followed by psychiatry daily since extubation and will continue to review the patient as his interaction level increases. Plan to be transferred to Inpatient Psychiatry once cleared medically. -Precedex was stopped on 01/19/18 -Ativan stopped on 01/20/18 -Continue Seroquel -Continue Librium taper MISC Diet: Currently NPO, OK for meds with apple sauce DVT ppx: SQ Lovenox Code status: Full code Problem List: 1. Suicidal deliberate poisoning 2. Mental status change 3. Polysubstance abuse 4. Alcohol withdrawal Pain Ratin (no proper feedback) Pain Goal: Pain 4 or less Pain Plan: PRN Tomorrow's Labs & Rationales: ICU lab bundle Plan DVT/Prophylaxis: mechanical, pharmacological Xavier PRIETO,Tank 01/21/18 0859: Attending MD Review Statement Attending Sign Off Attending Cosign Statement: I have: examined this patient, reviewed [employer] EMR data, personally reviewd images, discussd w/resident/PA/APPRENTICE STYLIST, discussed mgmt plan w/anuj, discussed mgmt plan w/CM, discussed mgmt plan w/pt, agreed w/resident/PA/APPRENTICE STYLIST, amended to note. Other Findings: Impression 37 year old man * Extubated after drug overdose/suicide attempt - significant psychiatric history of anxiety/depression/bipolar d/o and suicidal attempt, admitted to the ICU with an overdose of multiple medications mostly trazadone per records * s/p tx for aspiration pneumonia (RLL opacity) Plan Respiratory/ID -on precedex and ativan -s/p unasyn CVS -hemodynamic monitoring -will periodically monitor QT Heme -stable Metabolic -ins/outs -replete electrolytes Alimentary -can swallow pills, continued swallowing evaluation -D5 1/2ns @75cc until can eat Neuro -crisis/psych appreciated -ativan titrate down, off precedex -depakote DVT prophylaxis at all times TTS 35 min
[2018-01-21 08:00] VITALS: BP 138/82
--- NOTE | 2018-01-21 11:36 | PN- Psychiatry ---
Assessment/Plan Impression: 37 yo man with h/o unspecified bipola disorder, cocaine dependence, alcohol dependence and cannabis dependence admitted post intentional overdose. Initially ventilated. Agtiatied post extubation. Managed with dexmetomaddine and lorazepam, now lorazepam and chlordiazepoxide per medical team. Depakote resumed. Quetiapine added post extubation. Has no past modified swallow test. Lorazepam discontinued 01/20. Chlordiazepoxide being tapered. Tolerating quetiapine 50 mg p.o. every 8 hours without breakthrough agitation. Patient is for further swallow evaluation today and PT consult. Suggestion: 1. For further reduction of chlordiazepoxide today. If necessary increase quetiapine for breakthrough agitation. 2. Continue one-to-one observation for safety 3. Deferred to medical team and other management 4. Psychiatry will continue to see daily. The patient would be fully assessed when he is capable of participating. He is for probable admission to Inpatient Psychiatry when he is medically cleared and a bed becomes available. Subjective Subjective: Remain sedated though less so Objective Last 24 Hrs of Vital Signs/I&O Vital Signs Date Time Temp Pulse Resp B/P B/P Pulse O2 O2 Flow FiO2 Mean Ox Delivery Rate 01/21 0940 96 Nasal 4.0L Cannula 01/21 0800 96 Nasal 4.0L Cannula 01/21 0800 96.7 85 20 138/82 97 Room Air 01/21 0400 94 Nasal 5.0L Cannula 01/21 0000 98.4 76 22 140/84 92 Nasal 5.0L Cannula 01/21 0000 94 Nasal 5.0L Cannula 01/20 2113 94 Nasal 5.0L Cannula 01/20 2000 94 Nasal 5.0L Cannula 01/20 1600 Nasal 5.0L Cannula 01/20 1600 97.8 82 24 146/86 91 Nasal 5.0L Cannula 01/20 1200 93 Nasal 5.0L Cannula Intake & Output 01/21 1600 01/21 0800 01/21 0000 Intake Total 580 469 Output Total 300 225 Balance 280 244 Intake, IV 580 469 Output, Urine 300 225 Physical Exam: 37-year-old male, sedated, lying in hospital bed. Calm, no signs of agitation.
[2018-01-21 15:29] VITALS: BP 110/62
--- NOTE | 2018-01-22 07:00 | PN- Housestaff ---
Subjective Follow-up For: Alcohol withdrawl Review of Systems Constitutional: Reports: see HPI. Objective Last 24 Hrs of Vital Signs/I&O Vital Signs Date Time Temp Pulse Resp B/P B/P Pulse O2 O2 Flow FiO2 Mean Ox Delivery Rate 01/22 0000 95 Nasal 3.0L Cannula 01/21 1921 92 Nasal 3.0L Cannula 01/21 1600 96 Nasal 3.0L Cannula 01/21 1529 97.1 70 22 110/62 97 Nasal 3.0L Cannula 01/21 0940 96 Nasal 4.0L Cannula 01/21 0800 96 Nasal 4.0L Cannula 01/21 0800 96.7 85 20 138/82 97 Room Air Intake & Output 01/22 0800 01/22 0000 01/21 1600 Intake Total 650 450 Output Total 400 275 Balance 250 175 Intake, IV 600 450 Intake, Oral 50 Number 0 Bowel Movements Output, Urine 400 275 Physical Exam General Appearance: No Acute Distress Current Medications: Current Medications Sig/Minerva Start time Last Medication Dose Route Stop Time Status Admin Albuterol Sulfate 3 ML Q4P PRN 01/19 09 AC 01/21 INH 0948 Benzonatate 100 MG TID 01/18 1521 AC 01/21 PO 2103 Chlordiazepoxide HCl 25 MG Q6H 01/21 1400 DC PO Chlordiazepoxide HCl 25 MG Q6H 01/21 0830 AC 01/22 PO 0228 Chlordiazepoxide HCl 50 MG Q6H 01/20 1400 DC 01/20 PO 2111 Dextrose/Sodium 1,000 ML Q13H 01/20 0645 AC 01/22 Chloride [place] 0147 Divalproex Sodium 750 MG BID 01/15 1145 AC 01/21 PO 210 Enoxaparin Sodium 40 MG DAILY 01/07 0900 AC 01/21 SC 0825 Famotidine 20 MG DAILY 01/19 0900 AC 01/21 PO 0827 Fluticasone 2 SPRAY DAILY 01/18 1615 AC 01/21 Propionate CRIS 0835 Folic Acid 1 MG DAILY 01/13 09 AC 01/21 PO 0836 Lorazepam 2 MG ONE ONE 01/21 2100 DC 01/21 IV 01/21 210 2100 Magnesium Chloride 64 MG BID 01/21 0900 CAN PO Magnesium Oxide 400 MG BID 01/21 0815 AC 01/21 PO 01/23 0901 2102 Multivitamins 15 ML DAILY 01/13 0900 AC 01/20 PO 0952 Potassium Chloride 20 MEQ BID 01/21 0900 CAN PO 01/22 0600 Potassium Chloride 40 MEQ ONCE ONE 01/21 0815 DC 01/21 PO 01/21 0816 0824 Quetiapine Fumarate 50 MG TID 01/20 0930 AC 01/21 PO 2102 Sodium Chloride 2 SPRAY Q4P PRN 01/18 0930 AC 01/18 CRIS 1152 Thiamine HCl 100 MG DAILY 01/13 0900 AC 01/21 PO 0827
[2018-01-22 07:14] VITALS: BP 130/65
--- NOTE | 2018-01-22 07:19 | PN- Housestaff ---
KylepriscilaOtonielkalbe 01/22/18 0715: Subjective Follow-up For: Substance abuse, alcohol withdrawal Complaints: no complaints Subjective: Mr Espinoza was comfortable this morning, and was very sleepy when I walked into the room.After I woke him up, he didnt report any concerns such as shortness of breath, palpitatoins, or chest pain. It was a little diffcult to understand to his difficulty speaking, but no dysarthria or aphasia was noted. He was awake, oritented to time, place and person, and he understood the reason for her being in the hospital, and didnt have any SI/HI ( Although I wasnt very clear, if he understood this question completely ). He remained afebrile, and vitals stable. He was due to get an MBS for his difficulty swallowing, to rule out aspiration. At this time, he is being given all his medications crushed in apple sauce, and he didnt have any difficulty swallowing. No abdominal pain, continues to have padgett catheter which could be discontinued. At the time of presentation, he was hypoxic, and continues to be on supplemental oxygen that should be titrated down. Overnight, he had to be put on rola due to agitation, but he appeared very calm this morning. Restraints could be taken away this am, after re-assessing during the day. Review of Systems Constitutional: Reports: see HPI. Objective Last 24 Hrs of Vital Signs/I&O Vital Signs Date Time Temp Pulse Resp B/P B/P Pulse O2 O2 Flow FiO2 Mean Ox Delivery Rate 01/22 0714 97.9 65 22 130/65 93 01/22 0000 95 Nasal 3.0L Cannula 01/21 1921 92 Nasal 3.0L Cannula 01/21 1600 96 Nasal 3.0L Cannula 01/21 1529 97.1 70 22 110/62 97 Nasal 3.0L Cannula 01/21 0940 96 Nasal 4.0L Cannula 01/21 0800 96 Nasal 4.0L Cannula 01/21 0800 96.7 85 20 138/82 97 Room Air Intake & Output 01/22 0800 01/22 0000 01/21 1600 Intake Total 656 650 450 Output Total 300 400 275 Balance 356 250 175 Intake, IV 656 600 450 Intake, Oral 0 50 Number 0 0 Bowel Movements Output, Urine 300 400 275 Physical Exam General Appearance: No Acute Distress Other Physical Findings: General Appearance: no apparent distress, sleepy, comfortable, obese, drowsy Other Physical Findings: Head: atraumatic, normal appearance Mucosa: dry, mucosal coating secondary to poor oral hygeine Neck: normal inspection, supple Respiratory: b/l breath sounds normal, chest non-tender, on NC, no distress Cardiovascular: regular rate/rhythm Gastrointestinal: normal bowel sounds, soft, non-tender Extremities: normal inspection, normal capillary refill, moving all four extremities, currently in rola Neuro: drowsy, confused at most of the times, 5/5 motor strength, cranial nerves intact. Current Medications: Current Medications Sig/Minerva Start time Last Medication Dose Route Stop Time Status Admin Albuterol Sulfate 3 ML Q4P PRN 01/19 09 AC 01/21 INH 0948 Benzonatate 100 MG TID 01/18 1521 AC 01/21 PO 2103 Chlordiazepoxide HCl 25 MG Q6H 01/21 1400 DC PO Chlordiazepoxide HCl 25 MG Q6H 01/21 0830 AC 01/22 PO 0228 Chlordiazepoxide HCl 50 MG Q6H 01/20 1400 DC 01/20 PO 2111 Dextrose/Sodium 1,000 ML Q13H 01/20 0645 AC 01/22 Chloride IV 0147 Divalproex Sodium 750 MG BID 01/15 1145 AC 01/21 PO 2101 Enoxaparin Sodium 40 MG DAILY 01/07 0900 AC 01/21 SC 0825 Famotidine 20 MG DAILY 01/19 0900 AC 01/21 PO 0827 Fluticasone 2 SPRAY DAILY 01/18 1615 AC 01/21 Propionate CRIS 0835 Folic Acid 1 MG DAILY 01/13 0900 AC 01/21 PO 0836 Lorazepam 2 MG ONE ONE 01/21 2100 DC 01/21 IV 01/21 210 2100 Magnesium Chloride 64 MG BID 01/21 09 CAN PO Magnesium Oxide 400 MG BID 01/21 0815 AC 01/21 PO 01/23 0901 2102 Multivitamins 15 ML DAILY 01/13 09 AC 01/20 PO 0952 Potassium Chloride 20 MEQ BID 01/21 0900 CAN PO 01/22 0600 Potassium Chloride 40 MEQ ONCE ONE 01/21 0815 DC 01/21 PO 01/21 0816 0824 Quetiapine Fumarate 50 MG TID 01/20 0930 AC 01/21 PO 2102 Sodium Chloride 2 SPRAY Q4P PRN 01/18 0930 AC 01/18 CRIS 1152 Thiamine HCl 100 MG DAILY 01/13 0900 AC 01/21 PO 0827 Last 24 Hrs of Lab/Dieter Results Last 24 Hrs of Labs/Mics: Laboratory Tests 01/22/18 0649: Sodium Pending, Potassium Pending, Chloride Pending, Carbon Dioxide Pending, Anion Gap Pending, BUN Pending, Creatinine Pending, Glucose Pending, Calcium Pending, Phosphorus Pending, Magnesium Pending, Total Bilirubin Pending, AST Pending, ALT Pending, Albumin Pending Assessment/Plan Assessment: Mr. Espinoza is a 37-year-old gentleman, recently discharged from [facility] on Dec 01 2017, multiple suicide attempts, was brought in from home after another suicidal attempt after overdosing on olanzapine 20 milligram, melatonin and trazodone 100 milligram tabs. He was intubated for airway protection, and was also found to acutely hypoxic upto 88% on 3 L. After he was more stable, he was extubated without any complications. However, had chest x-ray showed evidence of right lower lung opacity likely from Aspiration pneumonia. He was later treated w/ Unaysn x 7 days, and was discontinued when he was afebrile > 48 hrs. LRC showed growth of MSSA. Blood cultures remained negative, and did not have any other systemic signs of infection. After he was extubated after 6 days of intubation on 01/13/18, he had difficulty swallowing likely from multiple causes such as post-exubation and increased sedation. He was further evaluated using MBS study, and diet was advanced, as per Speech Tx recommendation He continued to require Precedex+Ativan for sedation, and was continued on chlordiazepoxide. He was intermittently agitated, and was in restraints as needed. Given his history of alcohol use, and possibility of alcholic liver disease, librium was changed to ativan; although MELD is very low, but slighly dysfuncitonal synthetic function ( slightly high INR, and low albumin). Given his psychiatric history of bipolar disease, he was started on valproate ( last level wnl-01/20/18- 54), but continued on slighly lower dose of seroquel. Pshcyiatry was consulted for advice. He was continued on continous observation 1 :1 sitter given his history of multiple SI with a plan to transfer to inpatient psychiatry when he is more stable. Pertinent lab findings: WBC 7.8(01/06/18)-->3.8(01/22/18) Hb 17.3(01/06/18)-->13.5(01/22/18) Platelets 240(01/06/18)-->422(01/22/18) Na 143, K 3.7 BUN 7, Sr Cr 0.7 AST 14, ALT 31, Alb 3.2, INR 1.32 Urine tox- Cocaine positive. Sr Alcohol 131 Valproate level 01/20/18- 54. Etiology in his case of multiple suicide attempts should be investigated, and have an active intervention in place including social support. He also developed aspiration pneumonia, which is likely a result of his altered mentation. Given overdose of many anti-psychotic meds, his EKG should be checked regulaly. Problem list: 1. Drug overdose 2. Alcohol withdrawl 3. Aspiration pneumonia 4. SI 5. h/o Bipolar disorder 5. h/o anxiety, depression Plan: - Continue to monitor on general medicine. - CIWA protocol, which would be an inadequate estimation given his drug overdose - Change Librium 25mg q6h--> Ativan 1mg q8 for now; Hold for sedation - IV Ativan as per CIWA. - Continue Seroquel, and Depakote as per psychiatry - DC padgett catheter - Continue observation monitor 1:1 sitter - Given his hydration, and nutrtional status would continue hydration D5 1/2 NS at 75ml/hr x 1 bag - Continue Famotidine. - Monitor electrolytes, and replenish accordingly. - Continue thiamine, MVT, and folate. - Advance diet as tolerated. [facility] [place]: advance as per ST, OK for meds with apple sauce DVT ppx: SQ Lovenox Code status: Full code Problem List: 1. Suicidal deliberate poisoning 2. Mental status change 3. Aspiration pneumonia Pain Ratin Pain Location: none Pain Goal: Pain 4 or less Pain Plan: tylenol Tomorrow's Labs & Rationales: Rolan Schuster MD 01/22/18 5750: Attending MD Review Statement Attending Statement Attending MD Statement: examined this patient, discuss w/resident/PA/LINE SERVICER, agreed w/resident/PA/LINE SERVICER, reviewed EMR data (avail), amended to note Attending Assessment/Plan: The patient was seen and discussed with house staff. Agree with plan of care. Passed modified barium swallow. Speech still muffled. Appreciate psychiatry follow-up. Will continue benzo taper (convert to Ativan).
--- NOTE | 2018-01-22 11:02 | RADIOLOGY REPORT ---
EXAMINATION: XR MODIFIED BARIUM SWALLOW CLINICAL INFORMATION: Aspiration. COMPARISON: Modified barium swallow, 01/19/2018. TECHNIQUE: Fluoroscopic assistance was provided during a modified barium swallow performed in cooperation with the speech pathology service. FLUOROSCOPY TIME: 1 minute, 7 seconds NUMBER OF SAVED IMAGES: No spot fluoroscopy images were obtained. Only screen captured images were saved. FINDINGS: The modified barium swallow examination was performed in cooperation with the speech pathologist using dynamic fluoroscopic imaging in a lateral projection. The patient's swallowing function was observed during administration of apple sauce puree, honey, nectar, thin barium contrast and barium coated cracker. No aspiration or penetration occurred during oral intake of the applesauce. Mild retention of material was noted in the vallecula. There was an episode of spillage of honey to the level of the piriform sinuses. However, no aspiration or penetration occurred with the honey. The patient swallowed the barium coated cracker without complication. Tracheal aspiration with cough reflex occurred when swallowing thin barium contrast. IMPRESSION: - There was aspiration of thin barium contrast. However, no aspiration occurred when swallowing substances of higher viscosity. - Please refer to the speech pathology report regarding their assessment and treatment recommendations.
--- NOTE | 2018-01-22 11:02 | PN- Psychiatry ---
Assessment/Plan Impression: 37 yo man with h/o unspecified bipola disorder, cocaine dependence, alcohol dependence and cannabis dependence admitted post intentional overdose. Initially ventilated. Agtiatied post extubation. Managed with dexmetomaddine and lorazepam, now lorazepam and chlordiazepoxide per medical team. Depakote resumed. Quetiapine added post extubation. The patient remains sedated although less so. He remembered me but was unable to participate in a conversation. He is aware of and agreeable to ongoing follow-up by psychiatry with full assessment when medically cleared. Chlordiazepoxide has been discontinued. Patient continues on lorazepam per medical team. Had modified barium swallow this morning with aspiration of thin contrast but no aspiration when swallowing substances of higher viscosity. Patient is working with PT. Suggestion: 1. For further reduction of lorazepam today. If necessary may increase quetiapine for breakthrough agitation. 2. Depakote level in the morning 3. Continue one-to-one observation for safety 4. Defer to medical team on further management 5. Psychiatry will continue to see daily. The patient will be fully assessed when he is capable of participating. Probable admission to Inpatient Psychiatry when medically cleared and a bed available. Subjective Subjective: "I am doing okay" Review of Systems: The patient is drowsy but oriented. Unable to ambulate independently. Speech is low in volume, mumbles due to sedation. Eye contact fair. Patient at present with no agitation. Objective Last 24 Hrs of Vital Signs/I&O Vital Signs Date Time Temp Pulse Resp B/P B/P Pulse O2 O2 Flow FiO2 Mean Ox Delivery Rate 01/22 1429 98.3 84 24 148/88 91 Room Air 01/22 1045 96 Room Air Room Air 01/22 1032 95 Room Air 01/22 0714 97.9 65 22 130/65 93 01/22 0000 95 Nasal 3.0L Cannula 01/21 1921 92 Nasal 3.0L Cannula 01/21 1600 96 Nasal 3.0L Cannula 01/21 1529 97.1 70 22 110/62 97 Nasal 3.0L Cannula Intake & Output 01/22 1600 01/22 0800 01/22 0000 Intake Total 1080 656 650 Output Total 450 300 400 Balance 630 356 250 Intake, IV 600 656 600 Intake, Oral 480 0 50 Number 0 0 0 Bowel Movements Output, Urine 450 300 400 Physical Exam: Well documented elsewhere. Patient seen sitting by the side of his bed. Continues on nasal oxygen. Legs elevated. Calm and appropriate.
[2018-01-22 14:29] VITALS: BP 148/88
[2018-01-22 20:48] VITALS: BP 134/86
[2018-01-22 21:00] VITALS: BP 134/86
[2018-01-23 00:59] VITALS: BP 130/80
[2018-01-23 06:47] VITALS: BP 130/80
--- NOTE | 2018-01-23 07:42 | PN- Housestaff ---
Roxi Carbajal 01/23/18 0739: Subjective Follow-up For: Substance abuse, alcohol withdrawal Suicidal Complaints: no complaints Subjective: Mr Espinoza feels well today. He feels much better compared to yesterday. Did not report any SI/HI. He was really sleepy in the am when I saw him, but coldnt evaluate him well. After a few hours, he was much more awake and answered all the questions appropriately. No chest pain, palpitations. He continued to be off supplemantl oxygen. Review of Systems Constitutional: Reports: see HPI. Objective Last 24 Hrs of Vital Signs/I&O Vital Signs Date Time Temp Pulse Resp B/P B/P Pulse O2 O2 Flow FiO2 Mean Ox Delivery Rate 01/23 0647 98.0 69 24 130/80 92 01/23 0059 98.0 58 24 130/80 92 01/22 2100 98.6 71 22 134/86 01/22 2048 98.6 71 22 134/86 92 Room Air 01/22 1907 95 Room Air 01/22 1429 98.3 84 24 148/88 91 Room Air 01/22 1045 96 Room Air Room Air 01/22 1032 95 Room Air Intake & Output 01/23 0800 01/23 0000 01/22 1600 Intake Total 585 971 1935 Output Total 500 375 450 Balance -80 45 630 Intake, IV 300 300 600 Intake, Oral 120 120 480 Number 0 Bowel Movements Output, Urine 500 375 450 Physical Exam General Appearance: No Acute Distress Other Physical Findings: General Appearance: No Acute Distress Other Physical Findings: General Appearance: no apparent distress, sleepy, comfortable, obese, drowsy Other Physical Findings: Head: atraumatic, normal appearance Mucosa: dry, mucosal coating secondary to poor oral hygeine Neck: normal inspection, supple Respiratory: b/l breath sounds normal, chest non-tender, on NC, no distress Cardiovascular: regular rate/rhythm Gastrointestinal: normal bowel sounds, soft, non-tender Extremities: normal inspection, normal capillary refill, moving all four extremities, currently in rola Neuro: drowsy, confused at most of the times, 5/5 motor strength, cranial nerves intact. Current Medications: Current Medications Sig/Minerva Start time Last Medication Dose Route Stop Time Status Admin Albuterol Sulfate 3 ML Q4P PRN 01/19 0900 AC 01/21 INH 0948 Benzonatate 100 MG TID 01/18 1521 AC 01/22 PO 2000 Chlordiazepoxide HCl 25 MG Q6H 01/21 0830 DC 01/22 PO 0228 Dextrose/Sodium 1,000 ML Q13H 01/20 0645 DC 01/22 Chloride IV 01/22 2300 1537 Divalproex Sodium 750 MG BID 01/15 1145 AC 01/22 PO 2007 Enoxaparin Sodium 40 MG DAILY 01/07 0900 AC 01/22 SC 1016 Famotidine 20 MG DAILY 01/19 0900 AC 01/22 PO 1015 Fluticasone 2 SPRAY DAILY 01/18 1615 AC 01/22 Propionate CRIS 1016 Folic Acid 1 MG DAILY 01/13 0900 AC 01/22 PO 1016 Lorazepam 1 MG Q8 01/22 2200 AC 01/23 PO 0610 Lorazepam 1 MG Q6 01/22 1200 DC 01/22 PO 1239 Lorazepam 0 Q1P PRN 01/22 1030 AC 01/22 IV 2316 Magnesium Oxide 400 MG BID 01/21 0815 AC 01/22 PO 01/23 0901 2000 Multivitamins 15 ML DAILY 01/13 0900 AC 01/22 PO 1016 Quetiapine Fumarate 50 MG TID 01/20 0930 AC 01/22 PO 2001 Sodium Chloride 2 SPRAY Q4P PRN 01/18 0930 AC 01/18 CRIS 1152 Thiamine HCl 100 MG DAILY 01/13 0900 AC 01/22 PO 1015 Last 24 Hrs of Lab/Dieter Results Last 24 Hrs of Labs/Mics: Laboratory Tests 01/23/18 0719: CBC w Diff Pending, WBC Pending, RBC Pending, Hgb Pending, Hct Pending, MCV Pending, MCH Pending, MCHC Pending, RDW Pending, Plt Count Pending, MPV Pending, Valproic Acid Pending 01/22/18 1125: Urine Color YEL, Urine Clarity HAZY H, Urine pH 6.5, Ur Specific [place] 1.025, Urine Protein 30 H, Urine Ketones TRACE H, Urine Nitrite NEG, Urine Bilirubin NEG, Urine Urobilinogen >=8.0 H, Ur Leukocyte Esterase NEG, Ur Microscopic SEDIMENT EXAMINED, Urine RBC >75 H, Urine WBC 3-5 H, Ur Epithelial Cells FEW, Urine Bacteria FEW H, Urine Hemoglobin MOD H, Urine Glucose NEG Assessment/Plan Assessment: Mr. Espinoza is a 37-year-old gentleman, recently discharged from [facility] on Dec 01 2017, multiple suicide attempts, was brought in from home after another suicidal attempt after overdosing on olanzapine 20 milligram, melatonin and trazodone 100 milligram tabs. He was intubated for airway protection, and was also found to acutely hypoxic upto 88% on 3 L. After he was more stable, he was extubated without any complications. However, had chest x-ray showed evidence of right lower lung opacity likely from Aspiration pneumonia. He was later treated w/ Unaysn x 7 days, and was discontinued when he was afebrile > 48 hrs. LRC showed growth of MSSA. Blood cultures remained negative, and did not have any other systemic signs of infection. After he was extubated after 6 days of intubation on 01/13/18, he had difficulty swallowing likely from multiple causes such as post-exubation and increased sedation. He was further evaluated using MBS study, and diet was advanced, as per Speech Tx recommendation He continued to require Precedex+Ativan for sedation, and was continued on chlordiazepoxide. He was intermittently agitated, and was in restraints as needed. Given his history of alcohol use, and possibility of alcholic liver disease, librium was changed to ativan; although MELD is very low, but slighly dysfuncitonal synthetic function ( slightly high INR, and low albumin). Given his psychiatric history of bipolar disease, he was started on valproate ( last level wnl-01/20/18- 54), but continued on slighly lower dose of seroquel. Pshcyiatry was consulted for advice. He was continued on continous observation 1 :1 sitter given his history of multiple SI with a plan to transfer to inpatient psychiatry when he is more stable. Pertinent lab findings: WBC 7.8(01/06/18)-->3.8(01/22/18) Hb 17.3(01/06/18)-->13.5(01/22/18) Platelets 240(01/06/18)-->422(01/22/18) Na 143, K 3.7 BUN 7, Sr Cr 0.7 AST 14, ALT 31, Alb 3.2, INR 1.32 Urine tox- Cocaine positive. Sr Alcohol 131 Valproate level 01/20/18- 54-->34 01/23/18 Etiology in his case of multiple suicide attempts should be investigated, and have an active intervention in place including social support. He also developed aspiration pneumonia, which is likely a result of his altered mentation. Given overdose of many anti-psychotic meds, his EKG should be checked regulaly. Problem list: 1. Drug overdose 2. Alcohol withdrawl 3. Aspiration pneumonia 4. SI 5. h/o Bipolar disorder 5. h/o anxiety, depression Plan: - Continue to monitor on general medicine. - CIWA protocol, which would be an inadequate estimation given his drug overdose - Change to Ativan 1mg q12for now; Hold for sedation. - IV Ativan as per CIWA has been discontinued. - Continue Seroquel, and Depakote as per psychiatry. Add seroquel prn, as per psychiatry. - Continue observation monitor 1:1 sitter - Continue Famotidine. - Monitor electrolytes, and replenish accordingly. - Continue thiamine, MVT, and folate. - Advance diet as tolerated. [facility] [place] Diet: advance as per ST, OK for meds with apple sauce DVT ppx: SQ Lovenox Code status: Full code Problem List: 1. Suicidal deliberate poisoning 2. Mental status change 3. Aspiration pneumonia Pain Ratin Pain Location: back Pain Goal: Pain 4 or less Pain Plan: tylenol Tomorrow's Labs & Rationales: Rolan Alberto MD 01/23/18 1443: Attending MD Review Statement Attending Statement Attending MD Statement: examined this patient, discuss w/resident/PA/[employer], agreed w/resident/PA/[employer], reviewed EMR data (avail), discussed with nursing, discussed with case mgmt, amended to note Attending Assessment/Plan: The patient was seen and discussed with house staff. Mental status and speech improved. Agree with Ativan taper. Appreciate psych input and will use Seroquel. Still desaturates with ambulation and somewhat unsteady. Plan to transfer to psychiatry when ambulating better and off of oxygen. Still desaturates with ambulation and somewhat unsteady. Plan to transfer to psychiatry when ambulating better and off of oxygen.
[2018-01-23 08:21] LABS: ABSOLUTE BASOPHIL COUNT 0 /CUMM (0.0-0.2); ABSOLUTE EOSINOPHIL COUNT 0.1 /CUMM (0.0-0.7); ABSOLUTE GRANULOCYTE CT 1.9 /CUMM (1.4-6.5); ABSOLUTE LYMPH COUNT 1.3 /CUMM (1.2-3.4); ABSOLUTE MONOCYTE COUNT 0.3 /CUMM (0.10-0.60); BASOPHIL % 0.4 % (0.0-2.0); EOSINOPHIL % 3.2 % (0-5); GRANULOCYTE % 53.1 % (42.2-75.2); HEMATOCRIT 41.7 % (42-52); MEAN CORPUSCULAR HGB 30.8 PG (27.0-31.0); MEAN CORPUSCULAR HGB CONC 34.3 G/DL (33.0-37.0); MEAN CORPUSCULAR VOLUME 89.9 FL (80.0-94.0); MEAN PLATELET VOLUME 6.4 FL (7.4-10.4); PLATELET COUNT 498 /CUMM (130-400); RBC DISTRIBUTION WIDTH 13.1 % (11.5-14.5); RED BLOOD CELL CT 4.64 /CUMM (4.70-6.10); WHITE BLOOD CELL COUNT 3.6 /CUMM (4.8-10.8)
--- NOTE | 2018-01-23 10:04 | Discharge Summary ---
Visit Information Visit Dates Admission Date: 01/07/18 Hospital Course Course Attending Physician: Rolan Lockwood MD Primary Care Physician: Mary PRIETO,Niko Mckeon [facility] Course: Mr. Espinoza is a 37-year-old gentleman, recently discharged from [facility] on Dec 01 2017, multiple suicide attempts, was brought in from home after another suicidal attempt after overdosing on olanzapine 20 milligram, melatonin and trazodone 100 milligram tabs. He was intubated when he was also found to acutely hypoxic upto 88% on 3 L, and also for airway protection, and . After he was more stable, he was extubated without any complications. However, had chest x-ray showed evidence of right lower lung opacity likely from Aspiration pneumonia. He was later treated w/ Unaysn x 7 days, and was discontinued when he was afebrile > 48 hrs. LRC showed growth of MSSA. Blood cultures remained negative, and did not have any other systemic signs of infection. After he was extubated after 6 days of intubation on 01/13/18, he had difficulty swallowing likely from multiple causes such as post-exubation and increased sedation. He was further evaluated using MBS study, and diet was advanced, as per Speech Tx recommendation. He continued to require Precedex+Ativan for sedation, and was continued on chlordiazepoxide. He was intermittently agitated, and was in restraints as needed. Given his history of alcohol use, and possibility of alcholic liver disease, librium was changed to ativan; although MELD is very low, but slighly dysfuncitonal synthetic function (slightly high INR, and low albumin), increased urobilinogen in urine. Given his psychiatric history of bipolar disease, he was started on valproate ( last level wnl-01/20/18- 54), but continued on seroquel. He was found to be agitated at times, and required a few extra doses of seroquel. Pshcyiatry was consulted for advice. He was continued on continous observation 1:1 sitter given his history of multiple SI with a plan to transfer to inpatient psychiatry when he is more stable. He was slowly tapered off Ativan both intravenous prn doses, and scheduled doses. He continued to work with physical Tx, and also required some supplemental oxygen which was tapered off as he tolerated. In regards to his etiology in his case of multiple suicide attempts should be investigated, and have an active intervention in place including social support. Given overdose of many anti-psychotic meds, his EKG should be checked regulaly, while he is on psychiatry floor. He should follow up with his PCP after his discharge for follow up of his recent pneumonia. Pertinent lab findings: WBC 7.8(01/06/18)--> 4.7 (01/24/18) Hb 17.3(01/06/18)-->14.8(01/22/18) Platelets 240(01/06/18)-->485(01/22/18) ? reactive Na 143, K 3.7 BUN 7, Sr Cr 0.7 AST 14, ALT 31, Alb 3.2, INR 1.32 Urine tox- Cocaine positive. Sr Alcohol 131 Valproate level 54(01/20/18)--> 34.5(01/23/18) Problem list: 1. Drug overdose 2. Alcohol withdrawl 3. Aspiration pneumonia 4. SI 5. h/o Bipolar disorder 5. h/o anxiety, depression Allergies: Coded Allergies: cyclobenzaprine (TREMORS 08/07/17) bupropion (Mild, Increase in afshan, reported on a previous admission 08/07/17) Disposition Summary Disposition Principal Diagnosis: Drug overdose Additional Diagnosis: Alcohol withdrawl Aspiration pneumonia Discharge Disposition: Inpatient psychiatry Discharge Instructions General Discharge Information Code Status: Full Code Patient's Diet: Regular diet Patient's Activity: As tolerated Follow-Up Instructions/Appts: 1. Please see your PCP within one week of discharge, and discuss about medication changes. 2. Please follow up with you psychiatrist within a week, and discuss about the medication changes. Medications at Discharge Discharge Medications: Stop taking the following medications: Naltrexone HCl (Naltrexone HCl) 50 MG TABLET ORAL DAILY Qty = 30 Fluoxetine HCl (Prozac) 40 MG CAPSULE ORAL DAILY Qty = 28 Olanzapine (Zyprexa) 20 MG TABLET ORAL AT BEDTIME Qty = 14 Melatonin (Melatonin) 3 MG TABLET ORAL Every night Qty = 42 Continue taking these medications: Nicotine Polacrilex (Nicorelief) 4 MG GUM 1 Gum ORAL Q2H as needed for SMOKING CESSATION Qty = 100 Comments: Last Taken:12/25/17 Time:1211 Divalproex Sodium (Divalproex Sodium) 250 MG TABLET.DR 3 Tablet ORAL TWICE DAILY Qty = 84 Comments: Last Taken:12/25/17 Time:0740 Trazodone HCl (Trazodone HCl) 100 MG TABLET 1 Tablet ORAL Every night Qty = 14 Comments: Last Taken:12/25/17 Time:2143 Chlorpromazine HCl (Chlorpromazine HCl) 100 MG TABLET 1 Tablet ORAL EVERY 6 HOURS NEEDED as needed for Anxiety Qty = 60 Comments: Last Taken:12/25/17 Time:1211 Multivitamin (One Daily Multivitamin) 1 EACH TABLET 1 Tablet ORAL DAILY Qty = 14 Comments: Last Taken:12/25/17 Time:0740 Start taking the following new medications: Quetiapine Fumarate (Seroquel) 50 MG TABLET 50 Milligram ORAL THREE TIMES DAILY Qty = 30 No Refills Quetiapine Fumarate (Seroquel) 50 MG TABLET 50 Milligram ORAL Q8H as needed for AGITATION Qty = 30 No Refills Benzonatate (Benzonatate) 100 MG CAPSULE 100 Milligram ORAL THREE TIMES DAILY Qty = 30 No Refills Fluticasone Propionate (Fluticasone Propionate) 50 MCG/ACTUATION SPRAY.SUSP 2 [place] In the nose DAILY Qty = 1 No Refills Famotidine (Famotidine) 20 MG TABLET 20 Milligram ORAL DAILY Qty = 30 No Refills Folic Acid (Folic Acid) 1 MG TABLET 1 Milligram ORAL DAILY Qty = 30 Refills = 1 Thiamine HCl (Vitamin B-1) 100 MG TABLET 100 Milligram ORAL DAILY Qty = 30 Refills = 1 Copies To: Mary PRIETO,Niko Mckeon Attending MD Review Statement Documenting Attending: Kristin Rao MD Start taking the following new medications: Quetiapine Fumarate (Seroquel) 50 MG TABLET 50 Milligram ORAL THREE TIMES DAILY Qty = 30 No Refills Quetiapine Fumarate (Seroquel) 50 MG TABLET 50 Milligram ORAL Q8H as needed for AGITATION Qty = 30 No Refills Benzonatate (Benzonatate) 100 MG CAPSULE 100 Milligram ORAL THREE TIMES DAILY Qty = 30 No Refills Fluticasone Propionate (Fluticasone Propionate) 50 MCG/ACTUATION SPRAY.SUSP 2 [place] In the nose DAILY Qty = 1 No Refills Famotidine (Famotidine) 20 MG TABLET 20 Milligram ORAL DAILY Qty = 30 No Refills Folic Acid (Folic Acid) 1 MG TABLET 1 Milligram ORAL DAILY Qty = 30 Refills = 1 Thiamine HCl (Vitamin B-1) 100 MG TABLET 100 Milligram ORAL DAILY Qty = 30 Refills = 1 Copies To: Mary PRIETO,Niko Mckeon Attending MD Review Statement Documenting Attending: Kristin Rao MD
--- NOTE | 2018-01-23 11:47 | PN- Psychiatry ---
Assessment/Plan Impression: 37 yo man with h/o unspecified bipola disorder, cocaine dependence, alcohol dependence and cannabis dependence admitted post intentional overdose. Initially ventilated. Agtiatied post extubation. Managed with dexmetomaddine and lorazepam, now lorazepam and chlordiazepoxide per medical team. Depakote resumed. Quetiapine added post extubation. Patient encountered sitting at the side of his bed. More alert, fully oriented. Reports "I took 200 pills because I wanted to kill myself". Patient maintain sobriety for a couple of days only following discharge from Inpatient Psychiatry early in December. He says he knew that he was going to relapse. He was not suicidal until he was intoxicated with cocaine and alcohol. He reports he does not want to but "I had a hard time staying clean". The patient is ambivalent about being alive although he denies any current suicidal intent. He does not see any hope for his future. Misses his 2 daughters age 7 4 who live with their mother in [place]. The couple 2-1/2 years ago and the patient reports that life has been a struggle since. The patient has been using marijuana and alcohol in the age of 11. He is also cocaine dependent. He has had several periods of sobriety lasting anywhere from 7-10 months. He has been to residential rehabilitation programs which she says he does not find helpful. He is also achieved some periods of sobriety on his own with the help of . He has a sponsor through who knows he is in hospital. The patient lives alone and has minimal supports. He describes his mood today as "angry that I am in hospital". Discussed admission to Inpatient Psychiatry when he is medically cleared. The patient was initially resistant but reluctantly agrees. Depakote level this morning low at 34. Unclear why level has dropped when administration has been more consistent. Level will be repeated early next week. The patient received lorazepam last night for agitation. He was sedated this morning as a result. Suggestion: - Continue lorazepam taper. IV lorazepam now discontinued. Taking lorazepam 1 mg p.o. twice daily. -Added quetiapine 50 mg p.o. every 8 hours as needed for breakthrough agitation as an alternative to benzodiazepines -Depakote level is low, reason is unclear. Level will need to be repeated early next week. -Continue constant observation for safety -Defer to medical team on further management -The patient will be admitted to Inpatient Psychiatry when he is medically cleared and when a bed is available. The patient should NOT be allowed to leave AGAINST MEDICAL ADVICE Subjective Subjective: "I am angry that I am here [in-hospital]". Review of Systems: Slightly sedated, oriented 3. Eye contact good. Speech low in volume, monotonous, normal in rate and rhythm. His mood is frustrated, affect is depressed and restricted to that range. There are feelings of hopelessness and futility without current suicidal intent. Thought process is normal in tempo, stream and form with no delusions or obsessions. Attention and concentration were fair. There was no perceptual abnormality. Impulse control has been poor. Intelligence level is likely average, fund of knowledge average, use of language appropriate. The patient's in size is limited, judgment unimpaired.
[2018-01-23 15:19] VITALS: BP 104/86
[2018-01-23 22:26] VITALS: BP 137/82
[2018-01-23] MEDS ORDERED: FOLIC ACID1 M1 PO (23:13)
[2018-01-23] MEDS ORDERED: FAMOTIDINE20 M1 PO (23:13)
[2018-01-23] MEDS ORDERED: BENZONATATE100 M1 PO (23:13)
[2018-01-23] MEDS ORDERED: FLUTICASONE PRO16 GM NAS (23:13)
[2018-01-23] MEDS ORDERED: VITAMIN B-1100 MG PO (23:13)
[2018-01-23] MEDS ORDERED: SEROQUEL50 M1 PO ×2 (23:13)
--- NOTE | 2018-01-23 23:17 | Patient Discharge Instructions ---
See Addendum Discharge Instructions General Discharge Information You were seen/treated for: - Drug overdose - Alcohol withdrawl Watch for these problems: - Chest pain, shortness of breath - Altered mental status Special Instructions: 1. Please see your PCP within one week and discuss with him about the recent admission, and medicaiton changes that were made recently. 2. Please see your psychiatrist after discharge. Acute Coronary Syndrome Inclusion Criteria At DC or during hospital stay patient has or had the following: ACS DIAGNOSIS No Discharge Core Measures Meds if any: Prescribed or Continued at Discharge Meds if any: NOT Prescribed or Continued at Discharge Congestive Heart Failure Inclusion Criteria At DC or during hospital stay patient has or had the following: CHF DIAGNOSIS No Discharge Core Measures Meds if any: Prescribed or Continued at Discharge Meds if any: NOT Prescribed or Continued at Discharge Cerebrovascular accident Inclusion Criteria At DC or during hospital stay patient has or had the following: CVA/TIA Diagnosis No Discharge Core Measures Meds if any: Prescribed or Continued at Discharge Meds if any: NOT Prescribed or Continued at Discharge Venous thromboembolism Inclusion Criteria VTE Diagnosis No VTE Type NONE VTE Confirmed by (Test) NONE Discharge Core Measures - Per Current guidelines, there needs to be overlap - treatment for the first 5 days of Warfarin therapy. - If discharged on Warfarin prior to 5 days of - overlap therapy, the patient will need to be - assessed for post discharge needs including - *Post discharge parental anticoagulation - *Warfarin and/or parental anticoagulation education - *Follow up date to check INR post discharge At least 5 days overlap therapy as Inpatient No Meds if any: Prescribed or Continued at Discharge Note: Overlap Therapy is Warfarin and Anticoagulant Meds if any: NOT Prescribed or Continued at Discharge
[2018-01-24 06:42] VITALS: BP 138/80
--- NOTE | 2018-01-24 08:39 | PN- Housestaff ---
Luis Angel PRIETO,Emiliano 01/24/18 0839: Subjective Follow-up For: Substance abuse Alcohol withdrawal Suicidal Subjective: Patient was resting comfortably in bed today. Patient overnight became violent requiring 4 point hardrestraints. This morning he is resting comfortably in bed with no restraints. Patient reports no complaints today. Review of Systems Constitutional: Reports: see HPI. Objective Last 24 Hrs of Vital Signs/I&O Vital Signs Date Time Temp Pulse Resp B/P B/P Pulse O2 O2 Flow FiO2 Mean Ox Delivery Rate 01/24 0642 97.9 74 18 138/80 93 Room Air 01/23 2226 98.3 76 18 137/82 95 Room Air 01/23 2126 95 Room Air 01/23 1519 97.8 104 18 104/86 94 Physical Exam General Appearance: Alert, Cooperative, No Acute Distress Skin Temp/Moisture Exam: Warm/Dry HEENT: Atraumatic, Mucous Membr. moist/pink Cardiovascular: Regular Rate, Normal S1, Normal S2 Lungs: Clear to Auscultation, Normal Air Movement Abdomen: Normal Bowel Sounds, Soft, No Tenderness Current Medications: Current Medications Sig/Minerva Start time Last Medication Dose Route Stop Time Status Admin Albuterol Sulfate 3 ML Q4P PRN 01/19 09 AC 01/21 INH 0948 Benzonatate 100 MG TID 01/18 1521 AC 01/24 PO 1257 Bisacodyl 5 MG DAILY 01/24 0918 AC 01/24 PO 1257 Divalproex Sodium 750 MG BID 01/15 1145 AC 01/24 PO 0826 Docusate Sodium 100 MG DAILY NEEDED PRN 01/24 0930 AC PO Enoxaparin Sodium 40 MG DAILY 01/07 09 AC 01/24 SC 0827 Famotidine 20 MG DAILY 01/19 0900 AC 01/24 PO 0825 Fluticasone 2 SPRAY DAILY 01/18 1615 AC 01/24 Propionate CRIS 0837 Folic Acid 1 MG DAILY 01/13 09 AC 01/24 PO 0825 Lorazepam 0.5 MG BID 01/24 1122 AC PO 01/31 1121 Lorazepam 1 MG ONCE ONE 01/24 0100 DC 01/24 IV 01/24 0101 0059 Lorazepam 1 MG BID 01/23 2100 DC 01/24 PO 0842 Multivitamins 15 ML DAILY 01/13 09 AC 01/24 PO 0833 Nicotine 2 MG Q2P PRN 01/23 1545 AC 01/23 PO 1903 Polyethylene Glycol 17 GM DAILY 01/23 1545 DC 01/23 PO 1840 Quetiapine Fumarate 50 MG Q8H PRN 01/23 1145 AC 01/23 PO 1650 Quetiapine Fumarate 50 MG TID 01/20 0930 AC 01/24 PO 1257 Senna/Docusate Sodium 1 TAB BID 01/24 0918 AC 01/24 PO 1257 Sodium Chloride 2 SPRAY Q4P PRN 01/18 0930 AC 01/24 CRIS 0833 Thiamine HCl 100 MG DAILY 01/13 0900 AC 01/24 PO 0826 Last 24 Hrs of Lab/Dieter Results Last 24 Hrs of Labs/Mics: Laboratory Tests 01/24/18 0700: CBC w Diff NO MAN DIFF REQ, RBC 4.75, MCV 90.5, MCH 31.0, MCHC 34.3, RDW 13.2, MPV 6.6 L, Gran % 53.0, Lymphocytes % 36.0, Monocytes % 7.0, Eosinophils % 3.5, Basophils % 0.5, Absolute Granulocytes 2.5, Absolute Lymphocytes 1.7, Absolute Monocytes 0.3, Absolute Eosinophils 0.2, Absolute Basophils 0 Assessment/Plan Assessment: Mr. Espinoza is a 37-year-old gentleman, recently discharged from [facility] on Dec 01 2017, multiple suicide attempts, was brought in from home after another suicidal attempt after overdosing on olanzapine 20 milligram, melatonin and trazodone 100 milligram tabs. He was intubated for airway protection, and was also found to acutely hypoxic upto 88% on 3 L. After he was more stable, he was extubated without any complications. However, had chest x-ray showed evidence of right lower lung opacity likely from Aspiration pneumonia. He was later treated w/ Unaysn x 7 days, and was discontinued when he was afebrile > 48 hrs. LRC showed growth of MSSA. Blood cultures remained negative, and did not have any other systemic signs of infection. After he was extubated after 6 days of intubation on 01/13/18, he had difficulty swallowing likely from multiple causes such as post-exubation and increased sedation. He was further evaluated using MBS study, and diet was advanced, as per Speech Tx recommendation He continued to require Precedex+Ativan for sedation, and was continued on chlordiazepoxide. He was intermittently agitated, and was in restraints as needed. Given his history of alcohol use, and possibility of alcholic liver disease, librium was changed to ativan; although MELD is very low, but slighly dysfuncitonal synthetic function ( slightly high INR, and low albumin). Given his psychiatric history of bipolar disease, he was started on valproate ( last level wnl-01/20/18- 54), but continued on slighly lower dose of seroquel. Pshcyiatry was consulted for advice. He was continued on continous observation 1 :1 sitter given his history of multiple SI with a plan to transfer to inpatient psychiatry when he is more stable. Problems: 1. Drug overdose 2. Alcohol withdrawl 3. Aspiration pneumonia 4. SI 5. h/o Bipolar disorder 5. h/o anxiety, depression Plan: - Continue to monitor on general medicine. - Decreased Ativan to 0.5 mg BID. Can get one more dose tomorrow and then stop. Hold for sedation. - IV Ativan PRN has been discontinued - Continue Seroquel, and Depakote as per psychiatry. Added seroquel prn, as per psychiatry. - Continue observation monitor 1:1 sitter - Continue Famotidine. - Monitor electrolytes, and replenish accordingly. - Continue thiamine, MVT, and folate. - Advance diet as tolerated. Diet: puree, nectar thick liquids DVT ppx: SQ Lovenox Code status: Full code Dispo: Patient will require admission to [facility] given suicide attempt. Problem List: 1. Suicidal deliberate poisoning 2. Mental status change Pain Ratin Pain Location: n/a Pain Goal: Remain pain free Pain Plan: prn Tomorrow's Labs & Rationales: none Kristin Rao MD 01/24/18 1252: Attending MD Review Statement Attending Statement Attending MD Statement: examined this patient, discuss w/resident/PA/CELL STRIPPER, agreed w/resident/PA/CELL STRIPPER, reviewed EMR data (avail), discussed with nursing, discussed with case mgmt, reviewed images, amended to note Attending Assessment/Plan: Patient seen and examined, denies any complaints. He wants to take a walk. Patient is transferred to ICU and currently on Ativan taper. He is still wably in his gait per nursing. Vital Signs Date Time Temp Pulse Resp B/P B/P Pulse O2 O2 Flow FiO2 Mean Ox Delivery Rate 01/24 0642 97.9 74 18 138/80 93 Room Air 01/23 2226 98.3 76 18 137/82 95 Room Air 01/23 2126 95 Room Air 01/23 1519 97.8 104 18 104/86 94 on exam; aox3, nad. cv; s1, s2, rrr resp; clear abd; soft, nt, bs+ ext; no edema Laboratory Tests 01/24 0700 Hematology CBC w Diff NO MAN DIFF REQ WBC (4.8 - 10.8 /CUMM) 4.7 L RBC (4.70 - 6.10 /CUMM) 4.75 Hgb (14.0 - 18.0 G/DL) 14.8 Hct (42 - 52 %) 43.0 MCV (80.0 - 94.0 FL) 90.5 MCH (27.0 - 31.0 PG) 31.0 MCHC (33.0 - 37.0 G/DL) 34.3 RDW (11.5 - 14.5 %) 13.2 Plt Count (130 - 400 /CUMM) 485 H MPV (7.4 - 10.4 FL) 6.6 L Gran % (42.2 - 75.2 %) 53.0 Lymphocytes % (20.5 - 51.1 %) 36.0 Monocytes % (1.7 - 9.3 %) 7.0 Eosinophils % (0 - 5 %) 3.5 Basophils % (0.0 - 2.0 %) 0.5 Absolute Granulocytes (1.4 - 6.5 /CUMM) 2.5 Absolute Lymphocytes (1.2 - 3.4 /CUMM) 1.7 Absolute Monocytes (0.10 - 0.60 /CUMM) 0.3 Absolute Eosinophils (0.0 - 0.7 /CUMM) 0.2 Absolute Basophils (0.0 - 0.2 /CUMM) 0 A/P: 37-year-old gentleman, with history significant for suicide attempts admitted this time to ICU with another suicidal attempt after overdosing on olanzapine 20 milligram, melatonin and trazodone 100 milligram tabs. Patient also had alcohol intoxication. He also had acute hypoxic respiratory failure was intubated and was treated for aspiration pneumonia. Now extubated and has been transferred out of ICU. Followed actively by psychiatry. Currently on Ativan taper. Also has been getting Seroquel scheduled and when necessary for agitation. We'll continue the Ativan taper. Continue Depakote. Levels were subtherapeutic. Continue multivitamin, folate and thiamine. Continue TRC nebs. Patient on Lovenox for DVT Px. Patient will be going to Inpatient Psychiatry once medically stable and there is a bed availability Inpatient Psychiatry. He cannot leave A.
[2018-01-24 09:05] LABS: ABSOLUTE BASOPHIL COUNT 0 /CUMM (0.0-0.2); ABSOLUTE EOSINOPHIL COUNT 0.2 /CUMM (0.0-0.7); ABSOLUTE GRANULOCYTE CT 2.5 /CUMM (1.4-6.5); ABSOLUTE LYMPH COUNT 1.7 /CUMM (1.2-3.4); ABSOLUTE MONOCYTE COUNT 0.3 /CUMM (0.10-0.60); BASOPHIL % 0.5 % (0.0-2.0); EOSINOPHIL % 3.5 % (0-5); MEAN CORPUSCULAR HGB CONC 34.3 G/DL (33.0-37.0); MEAN CORPUSCULAR VOLUME 90.5 FL (80.0-94.0); MEAN PLATELET VOLUME 6.6 FL (7.4-10.4); PLATELET COUNT 485 /CUMM (130-400); RBC DISTRIBUTION WIDTH 13.2 % (11.5-14.5); RED BLOOD CELL CT 4.75 /CUMM (4.70-6.10); WHITE BLOOD CELL COUNT 4.7 /CUMM (4.8-10.8)
[2018-01-24 14:27] VITALS: BP 118/74
[2018-01-24 22:51] VITALS: BP 117/74
[2018-01-25 06:42] VITALS: BP 125/67
--- NOTE | 2018-01-25 12:36 | PN- Att Addend ---
Attending Addendum Attending Brief Note Patient seen and examined, still has a sitter. Offers no complaints. No other acute issues. Vital Signs Date Time Temp Pulse Resp B/P B/P Pulse O2 O2 Flow FiO2 Mean Ox Delivery Rate 01/25 0642 97.9 72 20 125/67 93 Room Air 01/24 2251 98.3 75 20 117/74 98 Room Air 01/24 1427 97.9 83 18 118/74 91 Room Air on exam; awake, nad. cv; s1, s2, rrr resp; clear abd; soft, nt, bs+ ext; no edema Laboratory Tests 01/25 0850 Chemistry Sodium (137 - 145 mmol/L) 144 Potassium (3.5 - 5.1 mmol/L) 4.4 Chloride (98 - 107 mmol/L) 104 Carbon Dioxide (22 - 30 mmol/L) 28 Anion Gap (5 - 16) 12 BUN (9 - 20 mg/dL) 7 L Creatinine (0.7 - 1.2 mg/dL) 0.9 Estimated GFR (>60 ml/min) > 60 BUN/Creatinine Ratio (7 - 25 %) 7.8 A/P; 37-year-old gentleman, with history significant for suicide attempts admitted this time to ICU with another suicidal attempt after overdosing on olanzapine 20 milligram, melatonin and trazodone 100 milligram tabs. Patient also had alcohol intoxication. He also had acute hypoxic respiratory failure was intubated and was treated for aspiration pneumonia. Now extubated and has been transferred out of ICU. Followed actively by psychiatry. Currently on Ativan taper. Also has been getting Seroquel scheduled and when necessary for agitation. Continue the current management. Patient working with physical therapy. Plan for him to go to Inpatient Psychiatry ultimately when bed available.
[2018-01-25 15:02] VITALS: BP 132/72
[2018-01-25 22:00] VITALS: BP 140/98
[2018-01-26 06:10] VITALS: BP 131/77
[2018-01-26 06:16] VITALS: BP 143/96
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
[2018-01-26 18:00] VITALS: BP 130/80
[2018-01-26 22:14] VITALS: BP 112/80
[2018-01-27] VITALS (7 sets, daily range): BP systolic 100–138; BP diastolic 68–88
--- NOTE | 2018-01-27 00:49 | Event Note ---
Event Note Event Note: Rapid response was called, when Mr Espinoza was found on the floor. He was trying to get out the bed, and he tripped and fell on the left side of the body hitting the head on the left side. He didnt have any loc, or had seizures. Event was witnessed by the sitter who was right next to the bed. Vitals were stable, pulse rate 66, respiration 22, blood pressure 122/78, 97% on room air. No focal neurological deficits. Heart and lung examination within normal limits no new bruises were noted, except a bruise on the left eyebrow. No vision changes. PERRLA, extraocular movements intact. No neurological deficits. Sensation intact. Cranial level examination intact. No abdominal tenderness. No tenderness on any joints, vertebrae noted. He is being treated for drug overdose, and has been slightly altered likely due to medications that may have resulted in this fall. He is alert, oriented to time place and person. Given his head injury, inability to examine his neck CT scan head without contrast, and CT cervical spine without contrast were obtained which were unremakable. Informed the attending physician corporate communications specialist. Discussed the plan. Plan was to keep him on the medicine floor for now, given his stable clinical condition.
--- NOTE | 2018-01-27 01:30 | CT SCAN REPORT ---
EXAMINATION: CT HEAD WITHOUT CONTRAST CT CERVICAL SPINE WITHOUT CONTRAST CLINICAL INFORMATION: Fell. Head injury. COMPARISON: None. TECHNIQUE: Imaging was performed from the skull base to vertex without intravenous administration of contrast. In addition, helical noncontrast CT imaging was acquired through the cervical spine and source images were reviewed along with axial reconstructions and sagittal and coronal MPRs. DLP: 1082.18 mGy-cm FINDINGS: HEAD: No intracranial mass, hemorrhage, or midline shift is visualized. The ventricles and sulci are age-appropriate. No extra-axial collections are identified. There is mucosal thickening at the inferior right maxillary sinus. CERVICAL SPINE: There is no evidence of acute cervical spine fracture. Vertebral bodies remain normal in height. Cervical vertebrae have normal alignment. Cervical disc heights are normal. The facet joints are normal. No pre- or paravertebral soft tissue abnormality is identified. Limited assessment of the lung apices is unremarkable. IMPRESSION: 1. No acute intracranial pathology. 2. No CT evidence of acute cervical spine fracture or traumatic subluxation
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
--- NOTE | 2018-01-27 12:14 | PN- Psychiatry ---
Assessment/Plan Impression: The patient is calm and appropriate today. He seems mildly sedated. He is not suicidal or homicidal and his impulse control today is good. The patient has a history of chronic difficulties with impulse control. there is no evidence of a pervasive mood disorder. There are no psychotic symptoms. The patient has a history of multiple suicide of them serious and potentially lethal. He suicide attempts or while he is intoxicated. Strongly encouraged the patient to enter residential rehabilitation program but he declined. He minimizes the effects of a substance use on his life and potentially on his mortality. The patient fell last night. CT of head and cervical spine were normal. Depakote level is now 68.7. On 750 mg of regular formulation medication twice daily. The patient has not required chlorpromazine which is ordered on an as-needed basis Suggestion: 1. Increase Depakote to a total of 1750 mg a day. 2. Repeat Depakote level on January 31 4. Continue olanzapine 20 mg p.o. nightly and chlorpromazine 100 mg p.o. 4 times daily as needed 3. If the patient's impulse control remains good and if there continued to be no signs of a pervasive mood disorder, he may not require inpatient admission. His medical admission has lasted longer than initially anticipated. His chronic impulsivity in association with substance abuse may not be treatable in an inpatient setting. As mentioned the patient declines residential rehabilitation which unfortunately does not augur well for his prognosis. 4. Psychiatry will continue to see the patient daily. Please do not discharge the patient without a psychiatric assessment. Subjective Subjective: Patient reports feeling "good". He denies any impulses to hurt himself or others. He adamantly states that he does not want to . His insight into the fact that he could quite probably if he continues to make serious suicide attempts is poor. He continues to state that he would not enter a residential rehabilitation program. He is agreeable to intensive outpatient program. Review of Systems: Patient is fully oriented. He is mildly sedated today. He was calm and appropriate. Eye contact is good. Speech is low in volume, monotonous, normal in rate and rhythm. He describes his mood is good. His affect is flat. There is no evidence of pervasive mood disorder. He is not suicidal or homicidal. Thought process is normal in tempo, stream and form. There are no delusions or obsessions.. There is no perceptual abnormality. Impulse control today is good. Patient's intelligence level is likely average, fund of knowledge average , use of language appropriate. Stop patient's insight is limited. He tends to minimize his substance abuse and his risk of a suicide attempt while intoxicated. Objective Last 24 Hrs of Vital Signs/I&O Vital Signs Date Time Temp Pulse Resp B/P B/P Pulse O2 O2 Flow FiO2 Mean Ox Delivery Rate 01/27 1000 97.6 72 20 132/70 93 Room Air / 0600 97.7 64 22 118/78 94 Room Air 07/ 0135 97.0 77 18 122/78 07/ 0044 98 Room Air 07/ 0040 97.0 77 18 122/78 98 Room Air 07/ 2214 98.0 68 18 112/80 92 Room Air 07/ 1800 97.5 67 18 130/80 94 07/02 1600 Room Air Intake & Output 01/27 1600 / 0800 07 0000 Intake Total 240 240 Output Total 200 Balance 40 240 Intake, Oral 240 240 Output, Urine 200
--- NOTE | 2018-01-28 03:03 | Transfer of Care Summary ---
Hospital Course Course Hospital Course: Mr. Espinoza is a 37-year-old gentleman, recently discharged from [facility] on Dec 01 2017, multiple suicide attempts, was brought in from home after another suicidal attempt after overdosing on olanzapine 20 milligram, melatonin and trazodone 100 milligram tabs. He was intubated when he was also found to acutely hypoxic upto 88% on 3 L, and also for airway protection, and . After he was more stable, he was extubated without any complications. However, had chest x-ray showed evidence of right lower lung opacity likely from Aspiration pneumonia. He was later treated w/ Unaysn x 7 days, and was discontinued when he was afebrile > 48 hrs. LRC showed growth of MSSA. Blood cultures remained negative, and did not have any other systemic signs of infection. After he was extubated after 6 days of intubation on 01/13/18, he had difficulty swallowing likely from multiple causes such as post-exubation and increased sedation. He was further evaluated using MBS study, and diet was advanced, as per Speech Tx recommendation. He continued to require Precedex+Ativan for sedation, and was continued on chlordiazepoxide. He was intermittently agitated, and was in restraints as needed. Given his history of alcohol use, and possibility of alcholic liver disease, librium was changed to ativan; although MELD is very low, but slighly dysfuncitonal synthetic function (slightly high INR, and low albumin), increased urobilinogen in urine. Given his psychiatric history of bipolar disease, he was started on valproate ( last level wnl-18- 54), but continued on seroquel. He was found to be agitated at times, and required a few extra doses of seroquel. Pshcyiatry was consulted for advice. He was continued on continous observation 1:1 sitter given his history of multiple SI with a plan to transfer to inpatient psychiatry when he is more stable. He was slowly tapered off Ativan both intravenous prn doses, and scheduled doses. He continued to work with physical Tx, and also required some supplemental oxygen which was tapered off as he tolerated. In regards to his etiology in his case of multiple suicide attempts should be investigated, and have an active intervention in place including social support. Given overdose of many anti-psychotic meds, his EKG should be checked regulaly, while he is on psychiatry floor. He should follow up with his PCP after his discharge for follow up of his recent pneumonia. Pertinent lab findings: WBC 7.8(01/06/18)--> 4.7 (01/24/18) Hb 17.3(01/06/18)-->14.8(01/22/18) Platelets 240(01/06/18)-->485(01/22/18) ? reactive Na 143, K 3.7 BUN 7, Sr Cr 0.7 AST 14, ALT 31, Alb 3.2, INR 1.32 Urine tox- Cocaine positive. Sr Alcohol 131 Valproate level 54(01/20/18)--> 34.5(01/23/18) Problem list: 1. Drug overdose 2. Alcohol withdrawl 3. Aspiration pneumonia 4. SI 5. h/o Bipolar disorder 5. h/o anxiety, depression Complications: CT HEAD WO IV CONTRAST 01/06/18-2132 No acute intracranial pathology. XRY-PORTABLE CHEST XRAY 01/06/18-2124 Improving bibasilar airspace opacities with mild persistent elevation of the right hemidiaphragm. CT ABD & PELVIS W IV CONTRAST; CTA CHEST-PULMONARY EMBOLISM 01/06/18-2233 1. Aspiration pneumonia in the right lower lobe, characterized by patchyconsolidation with opacification of the lower lobe bronchi. 2. No evidence of pulmonary emboli. Sensitivity is limited by motion artifact to the proximal segmental/lobar level. 3. No acute intra-abdominal or intrapelvic abnormalities. XRY-PORTABLE CHEST XRAY 01/07/18-0341 1. Endotracheal tube tip approximately 6 cm above the josue. 2. Heterogeneous right lower lobe opacity seen on recent CT is not well demonstrated radiographically. 3. Enteric tube tip is not well seen distally beyond the gastroesophagealjunction. Tube position may be better evaluated with an upper abdominalradiograph. PORTABLE CHEST XRAY 01/18/18-1605 Low lung volumes and bibasilar atelectasis. Possible retrocardiac opacity with underlying infiltrate not excluded XRY-MODIFIED BARIUM SWALLOW 01/19/18-1047 Aspiration of the barium coated applesauce was observed. Please refer to the speech pathology report regarding their assessment and treatment recommendations. XRY-MODIFIED BARIUM SWALLOW 01/22/18- - There was aspiration of thin barium contrast. However, no aspiration occurred when swallowing substances of higher viscosity. - Please refer to the speech pathology report regarding their assessment and treatment recommendations. Assessment/Plan: as above. Attending MD Review Statement Documenting Attending: Rolan Lockwood MD
[2018-01-28 06:20] VITALS: BP 130/84
--- NOTE | 2018-01-28 08:38 | PN- Housestaff ---
See Addendum Subjective Follow-up For: Substance abuse Overdose Alcohol withdrawal Suicidal ideation Subjective: Patient was seen and examined. He has no complaints and states that he feels good. Patient continues to have one-to-one sitter and is calmly sitting in bed watching TV. Patient continues to have very flat affect and converses very little. Review of Systems Constitutional: Reports: no symptoms. Cardiovascular: Reports: no symptoms. Respiratory: Reports: no symptoms. Gastrointestinal: Reports: no symptoms. Genitourinary: Reports: no symptoms. Musculoskeletal: Reports: no symptoms. Skin: Reports: no symptoms. Neurological/Psychological: Reports: depressed. Objective Last 24 Hrs of Vital Signs/I&O Vital Signs Date Time Temp Pulse Resp B/P B/P Pulse O2 O2 Flow FiO2 Mean Ox Delivery Rate 01/29 620 98.1 73 20 130/84 92 Room Air 01/27 2223 98.3 75 22 138/88 93 01/27 1821 97.6 77 24 134/84 93 01/27 1357 97.4 80 20 100/68 95 Room Air Intake & Output 01/28 1600 01/28 0800 01/28 0000 Intake Total 300 500 Output Total Balance 300 500 Intake, Oral 300 500 Physical Exam General Appearance: Alert, Cooperative, No Acute Distress Skin: No Rashes, No Breakdown, No Significant Lesion HEENT: Atraumatic, PERRLA, EOMI, Mucous Membr. moist/pink Cardiovascular: Regular Rate, Normal S1, Normal S2, No Murmurs Lungs: Clear to Auscultation, Normal Air Movement Abdomen: Normal Bowel Sounds, Soft, No Tenderness, No Hepatospenomegaly Neurological: Normal Speech Extremities: No Clubbing, No Cyanosis, No Edema, Normal Pulses, No Tenderness/ Swelling Vascular: Normal Pulses, Pulses Symmetrical Current Medications: Current Medications Sig/Minerva Start time Last Medication Dose Route Stop Time Status Admin Albuterol Sulfate 3 ML Q4P PRN 01/19 0900 AC 01/21 INH 0948 Benzonatate 100 MG TID 01/18 1521 AC 01/28 PO 0940 Bisacodyl 5 MG DAILY 01/24 0918 AC 01/28 PO 0940 Chlorpromazine 100 MG Q6-PRN PRN 01/27 1615 AC PO Chlorpromazine 100 MG Q4 HRS NEEDED PRN 01/26 1300 DC PO Divalproex Sodium 750 MG 8AM 01/28 0800 AC 01/28 PO 0941 Divalproex Sodium 1,000 MG 2000 01/28 2000 AC 01/27 PO 2018 Divalproex Sodium 750 MG BID 01/15 1145 DC 01/27 PO 0818 Docusate Sodium 100 MG DAILY NEEDED PRN 01/24 0930 AC PO Enoxaparin Sodium 40 MG DAILY 01/07 0900 AC 01/28 SC 0941 Famotidine 20 MG DAILY 01/19 0900 AC 01/28 PO 0940 Fluticasone 2 SPRAY DAILY 01/18 1615 AC 01/26 Propionate CRIS 1118 Folic Acid 1 MG DAILY 01/13 09 AC 01/28 PO 0940 Multivitamins 1 TAB DAILY 01/27 1126 AC 01/28 PO 0941 Nicotine 2 MG Q2P PRN 01/23 1545 AC 01/27 PO 2019 Olanzapine 20 MG 2200 01/26 2200 AC 01/27 PO 2018 Senna/Docusate Sodium 1 TAB BID 01/24 0918 AC 01/28 PO 0940 Sodium Chloride 2 SPRAY Q4P PRN 01/18 0930 AC 01/24 CRIS 0833 Thiamine HCl 100 MG DAILY 01/13 0900 AC 01/28 PO 0940 Assessment/Plan Assessment: Mr. Espinoza is a 37-year-old gentleman, recently discharged from [facility] on Dec 01 2017, multiple suicide attempts, was brought in from home after another suicidal attempt after overdosing on olanzapine 20 milligram, melatonin and trazodone 100 milligram tabs. He was intubated for airway protection, and was also found to acutely hypoxic upto 88% on 3 L. After he was more stable, he was extubated without any complications. However, had chest x-ray showed evidence of right lower lung opacity likely from Aspiration pneumonia. He was later treated w/ Unaysn x 7 days, and was discontinued when he was afebrile > 48 hrs. LRC showed growth of MSSA. Blood cultures remained negative, and did not have any other systemic signs of infection. After he was extubated after 6 days of intubation on 01/13/18, he had difficulty swallowing likely from multiple causes such as post-exubation and increased sedation. He was further evaluated using MBS study, and diet was advanced, as per Speech Tx recommendation He continued to require Precedex+Ativan for sedation, and was continued on chlordiazepoxide. He was intermittently agitated, and was in restraints as needed. Given his history of alcohol use, and possibility of alcholic liver disease, librium was changed to ativan; although MELD is very low, but slighly dysfuncitonal synthetic function ( slightly high INR, and low albumin). Given his psychiatric history of bipolar disease, he was started on valproate ( last level wnl-01/27/18- ). Psychiatry was consulted for advice. He was continued on continous observation 1:1 sitter given his history of multiple SI with a plan to transfer to inpatient psychiatry when he is more stable. Problems: 1. Drug overdose 2. Alcohol withdrawl 3. Aspiration pneumonia 4. SI 5. h/o Bipolar disorder 5. h/o anxiety, depression Plan: - Continue to monitor on general medicine. -Patient is off Ativan completely -We have replaced Seroquel with chlorpromazine continue olanzapine, and Depakote as per psychiatry. Depakote level was therapeutic but low when done on January 27. We have increased Depakote to 1750mg daily. We have ordered a Depakote level for 01/31. -Psychiatry is suggesting the patient does not need inpatient psych, however due to the patient's vital episode, we will reevaluate patient tomorrow and subsequent days of his stay. - Please see event note for yesterday- patient was given Haldol and Ativan and placed in 4-point hard restraints after episode of agitation at about 10 AM. Patient has been calm and restraints were removed overnight. However patient had an episode of getting up and falling over hitting his head. CT head was done which was negative for any pathology. Patient currently complains of no headache or visual/hearing changes. -Patient was assist of 2 back 2 days ago and yesterday was assist of 1, continue to work with physical therapy. - Continue observation monitor 1:1 sitter - Continue Famotidine. - Monitor electrolytes, and replenish accordingly. - Continue thiamine, MVT, and folate. -Diet was advanced yesterday to regular with nectar thick liquids with no utensils. Diet: Regular with nectar thick liquids DVT ppx: SQ Lovenox Code status: Full code Dispo: Patient will potential he require admission to [facility] given suicide attempt. Of note patient is quite adverse to admission to Inpatient Psychiatry stating that it is "pointless".. Problem List: 1. Suicidal deliberate poisoning 2. Mental status change 3. Polysubstance abuse Pain Ratin Pain Location: na Pain Goal: Remain pain free Pain Plan: na Tomorrow's Labs & Rationales: na
[2018-01-28 14:00] VITALS: BP 142/96
[2018-01-28 21:53] VITALS: BP 130/90
[2018-01-29 06:29] VITALS: BP 108/84
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
--- NOTE | 2018-01-29 10:48 | PN- Psychiatry ---
Assessment/Plan Impression: Pt seen with Dr Fleming. Speech remains slurred, affect flat and unreactive. Some resignation and futility regarding his multiple suicide attempts while intoxicated and his inability to maintain sobriety. No further episodes of aggression. No psychotic symptoms. Family now involved ans supports psychiatric admission to which pt is now agreeable. Pt has not received PRN CPZ since 01/27 at 1600. He has received some lorazepam for anxiety. Mobility remains limited. Pt is deconditioned secondary to lengthy admission. Suggestion: 1. Continue Depakote for impulse control with repeat level on 01/31 2. Continue olanzapine 20 mg hs which the patient has tolerated well in the past 3. Reduce PRN CPZ to 50mg and use for anxiety or agitationy. Try to avoid lorazepam if possible. 4. May benefit from Speech therapy assessment re dysarthria 5. Continue PT and mobilize aggressively 6. Other management per medical team. 7. Pt will sign a voluntary form for admission to [facility] and will be admitted when medically cleared and bed available. 8. Continue one to one observation. PLease notify psychiatry when pt medically ready for discharge. Subjective Subjective: Pt reports that he feels "good except for being here". He laverne being suicidal and states that he is glad he survived the overdose. Describes OD as "the same old thing" and does not have much hope for it changing. Has been speaking to family (mother, brothers and [id number] ) and they are encouraging him to agree to admission to [facility]. Objective Last 24 Hrs of Vital Signs/I&O Vital Signs Date Time Temp Pulse Resp B/P B/P Pulse O2 O2 Flow FiO2 Mean Ox Delivery Rate 01/29 0629 98.0 71 20 108/84 93 Room Air 01/28 2153 97.7 91 18 130/90 94 / 1400 97.8 80 24 142/96 93 Room Air Intake & Output 01/29 1600 07/ 0800 07/ 0000 Intake Total 300 300 Output Total Balance 300 300 Intake, Oral 300 300 Number 1 Bowel Movements Physical Exam: Patient is fully oriented. He is mildly sedated today. He was calm and appropriate. Eye contact is good. Speech is low in volume, monotonous, normal in rate and rhythm and mildly slurred. He describes his mood as good but affect remaisn flat and unreactive. He has feelings of hopeless ness in the face of his addiction but is not actively suicidal or homicidal. Thought process is normal in tempo, stream and form. There are no delusions or obsessions. There is no perceptual abnormality. Impulse control today is good. Patient's intelligence level is likely average, fund of knowledge average, use of language appropriate. Stop patient's insight is limited. He tends to minimize his substance abuse and his risk of a suicide attempt while intoxicated.
--- NOTE | 2018-01-29 11:04 | PN- Att Addend ---
Attending Addendum Attending Brief Note Patient seen and examined, overall doing better. He did receive a couple of doses of Lorazepam yesterday because of anxiety. He was able to ambulate with walker and physical therapy this morning. Vital Signs Date Time Temp Pulse Resp B/P B/P Pulse O2 O2 Flow FiO2 Mean Ox Delivery Rate 01/29 0629 98.0 71 20 108/84 93 Room Air 01/28 2153 97.7 91 18 130/90 94 01/28 1400 97.8 80 24 142/96 93 Room Air on exam; aox3, nad. cv; s1,s2, rrr resp; clear abd; soft, nt, bs+ ext; no edema no labs. A/P; 37-year-old gentleman, with history significant for suicide attempts admitted this time to ICU with another suicidal attempt after overdosing on olanzapine 20 milligram, melatonin and trazodone 100 milligram tabs. Patient also had alcohol intoxication. He also had acute hypoxic respiratory failure was intubated and was treated for aspiration pneumonia. Extubated and has been transferred out of ICU. Since on the medicine floor has had couple of episodes of agitation. He was feeling really anxious yesterday for received couple of doses of lorazepam. Reviewed psych note today. Recommend keeping the patient on low-dose Thorazine as needed for agitation or anxiety and avoid benzodiazepines. Patient improving with ambulation and walking with a walker and a physical therapist. Continue other current treatment. DVT px; Lovenox. Dipso: Possible [facility] vs [facility].
[2018-01-29 14:15] VITALS: BP 126/88
--- NOTE | 2018-01-29 15:47 | PN- Psychiatry ---
Assessment/Plan Impression: Patient seen at 10:[address] Pamela White and with Johnnie Castellanos [facility]. Patient is resting in bed. Speech is mildly slurred. Affect is calm and blunted. States he is here because of "same old thing, smoking crack, drinking. " Reports he ended up taking pills, Thorazine, olanzapine, melatonin (and I believe one other) as an intentional overdose. He states he is glad he survived. Denies having suicidal thoughts now. Reports mood is okay apart from being in the hospital. States he is now willing to go to [facility] if needed. Although he had previously refused, he changed his mind because mother, brothers and [id number] persuaded him to do what the doctor says. IMPRESSION: We have decided to admit the patient to [facility] when a bed becomes available. Suggestion: . Subjective Subjective: . Objective Last 24 Hrs of Vital Signs/I&O Vital Signs Date Time Temp Pulse Resp B/P B/P Pulse O2 O2 Flow FiO2 Mean Ox Delivery Rate 01/29 1415 99.1 69 20 126/88 98 01/29 0629 98.0 71 20 108/84 93 Room Air 01/28 2153 97.7 91 18 130/90 94 Intake & Output 01/29 1600 01/29 0800 01/29 0000 Intake Total 480 300 300 Output Total Balance 480 300 300 Intake, Oral 480 300 300 Number 0 1 Bowel Movements
[2018-01-29 22:24] VITALS: BP 120/90
[2018-01-30 06:20] VITALS: BP 118/84
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
--- NOTE | 2018-01-30 10:51 | PN- Att Addend ---
Attending Addendum Attending Brief Note Patient seen and examined, overall doing much better. He is not anxious or agitated. His ambulation has improved significantly. Vital Signs Date Time Temp Pulse Resp B/P B/P Pulse O2 O2 Flow FiO2 Mean Ox Delivery Rate 01/30 0620 98.7 90 20 118/84 92 Room Air 01/29 2224 98.2 77 20 120/90 94 Room Air 01/29 1415 99.1 69 20 126/88 98 on exam; aox3, nad. cv; s1,s2, rrr resp; clear abd; soft, nt, bs+ ext; no edema no labs. A/P: 37-year-old gentleman, with history significant for suicide attempts admitted this time to ICU with another suicidal attempt after overdosing on olanzapine 20 milligram, melatonin and trazodone 100 milligram tabs. Patient also had alcohol intoxication. He also had acute hypoxic respiratory failure was intubated and was treated for aspiration pneumonia. Extubated and has been transferred out of ICU. Since on the medicine floor has had couple of episodes of agitation and anxiety. But overall he has improved significantly. His ambulation has also improved. Patient has a bed at [facility] today and he will be able to go to to [facility] today. Per Psych, Depakote levels to be repeated tomorrow. Continue all current mx. DVT px; Lovenox.
[2018-01-30] MEDS ORDERED: DEPAKOTE500 M1 PO (11:32)
[2018-01-30] MEDS ORDERED: DIVALPROEX SOD250 M2 PO (11:32)
[2018-01-30] MEDS ORDERED: CHLORPROMAZINE25 M2 PO (11:38)
[2018-01-30] MEDS ORDERED: ZYPREXA ZYDIS PO (11:38)
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
== END 2018-01-30 14:33 | DRG 817 ==
LOC: ERH 00:34 → CRI 01-07 00:36 → 2NA 01-07 00:36 → ERHI 01-07 00:36 → ENRESERV 01-07 01:56 → CRI 01-07 02:42 → 2NB 01-21 23:09 → 2NA 01-26 13:59 → ENPENDDIS 01-30 11:55 → ENTRNSPT 01-30 14:18 → EDTRNSPTSTS 01-30 14:26 → 2NA 01-30 14:33 → CMPTRNSPT 01-30 14:34
PROVIDERS: Emergency Medicine; Internal Medicine; Internal Medicine Adolescent Medicine; Internal Medicine Endocrinology, Diabetes & Metabolism; Preventive Medicine Public Health & General Preventive Medicine; Student in an Organized Health Care Education/Training Program
PROC: 0BH17EZ Insertion of Endotracheal Airway into Trachea, Via Natural or Artificial Opening (ICD-10-PCS; principal; 2018-01-07)
PROC: 5A1945Z Respiratory Ventilation, 24-96 Consecutive Hours (ICD-10-PCS; 2018-01-07)
PROC: 0DH67UZ Insertion of Feeding Device into Stomach, Via Natural or Artificial Opening (ICD-10-PCS; 2018-01-07)
PROC: 3E0G76Z Introduction of Nutritional Substance into Upper GI, Via Natural or Artificial Opening (ICD-10-PCS; 2018-01-07)
PROC: F00ZJWZ Instrumental Swallowing and Oral Function Assessment using Swallowing Equipment (ICD-10-PCS; 2018-01-14)
PROC: BD1BYZZ Fluoroscopy of Mouth/Oropharynx using Other Contrast (ICD-10-PCS; 2018-01-14)
DX: T43.592A Poisoning by other antipsychotics and neuroleptics, intentional self-harm, initial encounter (principal); F41.9 Anxiety disorder, unspecified; F14.10 Cocaine abuse, uncomplicated; Y90.6 Blood alcohol level of 120-199 mg/100 ml; F12.10 Cannabis abuse, uncomplicated; F10.239 Alcohol dependence with withdrawal, unspecified; Z91.5 Personal history of self-harm; F17.210 Nicotine dependence, cigarettes, uncomplicated; I10 Essential (primary) hypertension; E78.5 Hyperlipidemia, unspecified; E87.2 Acidosis; J15.211 Pneumonia due to Methicillin susceptible Staphylococcus aureus; F31.9 Bipolar disorder, unspecified; J69.0 Pneumonitis due to inhalation of food and vomit; R00.0 Tachycardia, unspecified; Z78.1 Physical restraint status; R47.1 Dysarthria and anarthria; R45.6 Violent behavior; W06.XXXA Fall from bed, initial encounter; Y92.230 Patient room in hospital as the place of occurrence of the external cause; J80 Acute respiratory distress syndrome
CPT/HCPCS: 2NAP; 2NBP; 83992; 84133; 84300; CCU; 36415; 36592; 71045; 74177; 74230; 80307; 81001; 82436; 82570; 87040; 87070; 87086; 87147; 93005; 93010; 94799; 96361; 96374; 96375; 96376; 97110-GO; 97112-GO; 97116-GO; 97161-GP; 97530-GO; 99291; G0480; J0131; J1630; J1650; J2060; J2405; J3101; J3370; J3490; J7040; J7042; J7060; J7608

== ENCOUNTER 2018-01-30 10:27 | Inpatient (IN) | payer OTHER ==
[~2018-01-30] VITALS: Ht 188 cm; Wt 105.8 kg
[~2018-01-30 10:27] MED LIST changes: +BENZONATATE100 M1 PO; +FAMOTIDINE20 M1 PO; +FLUTICASONE PRO16 GM NAS; +SEROQUEL50 M1 PO; +VITAMIN B-1100 MG PO
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
[2018-01-30] MEDS ORDERED: DEPAKOTE500 M1 PO (11:32)
[2018-01-30] MEDS ORDERED: DIVALPROEX SOD250 M2 PO (11:32)
[2018-01-30] MEDS ORDERED: CHLORPROMAZINE25 M2 PO (11:38)
[2018-01-30] MEDS ORDERED: ZYPREXA ZYDIS PO (11:38)
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
[2018-01-30 15:37] VITALS: BP 147/71
[2018-01-30 19:58] VITALS: BP 142/85
--- NOTE | 2018-01-31 08:20 | CP SOUTH PROGRESS NOTE PSYCH ---
Psych (Inpt) Progress Note Progress Note Vital Signs: Date Time Temp Pulse B/P O2 01/31 0838 98.1 72 146/75 01/31 0833 98.3 72 146/75 01/30 1958 97.4 89 142/85 Mental Status Examination Ambulating with help of a walker as her remains a fall risk due to somewhat unsteady gait. He was calm and cooperative and appropriate Psychomotor activity was slow Behavior: Appropriate Quality of speech: Slurred, monotonuus Affect: Flat Mood: "Good" Denied Suicidal Ideation, No Homicidal Ideation, denied Hallucinations, denied feeling paranoid/no delusional Material, no Difficulties with thought organization: fair Insight, Fair Judgment Orientation:Full x 4 Cognition: Grossly intact Memory Function: No deficits noted Estimate of intellectual functioning: Average Assessment: On medical floor since January 06 following a serious overdose which in turn was taken less than 1 week following discharge from psychiatry. This is in the context of ongoing substance use. Patient needs psychiatric admission for further stabilization and discharge planning DSM 5 Diagnosis(es): Bipolar affective disorder unspecified, no psychosis Stimulants [cocaine] use disorder severe dependence Alcohol use disorder severe dependence Cluster B personality traits Status post intentional overdose Treatment Plan: resume Prozac Trazodone was re-started last night Estimate of intellectual functioning: Average Assets/Strengths Patient Identified Assets/Strengths: 'I don't know" Impression/Plan Impression and Plan: On medical floor since January 06 following a serious overdose which in turn was taken less than 1 week following discharge from psychiatry. This is in the context of ongoing substance use. Patient needs psychiatric admission for further stabilization and discharge planning DSM 5 Diagnosis(es): Bipolar affective disorder unspecified, no psychosis Stimulants [cocaine] use disorder severe dependence Alcohol use disorder severe dependence Cluster B personality traits Status post intentional overdose Treatment Plan: The patient is being admitted to psychiatry on a voluntary basis. Last Depakote level was 68. Dose has been increased by 250 mg at night and to level will be repeated tomorrow January 31. The patient would benefit from a family meeting in order to more fully explore and maximize the supports he has in place. Of note speech therapy will see the patient on the unit
[2018-01-31 08:33] VITALS: BP 146/75
[2018-01-31 08:38] VITALS: BP 146/75
[2018-01-31 12:02] VITALS: BP 126/81
[2018-01-31 15:59] VITALS: BP 136/70
[2018-01-31 20:23] VITALS: BP 112/57
--- NOTE | 2018-02-01 08:14 | CP SOUTH PROGRESS NOTE PSYCH ---
Psych (Inpt) Progress Note Progress Note Vital Signs Date Time Temp Pulse B/P B/P Pulse O2 O2 Flow FiO2 02/02 820 97.7 72 124/87 01/31 2023 97.2 66 112/57 01/31 1559 81 136/70 Mental Status Examination: steady gait, calm and cooperative, appropriate, normal psychomotor activity alert, oriented to time, place, and person normal speech, blunted affect reported mood as "Good", denied suicidal ideation, denied homicidal ideation, denied Hallucinations, denied feeling paranoid, there were no delusions coherent/no difficulties with thought organization, fair Insight, fair Judgment; no short term memory deficits Assessment: 37-year-old single white male who was on medical floor since January 06 following a serious overdose which in turn was taken less than 1 week following discharge from psychiatry. This is in the context of ongoing substance use. Diagnoses: Bipolar Disorder unspecified, no psychosis Stimulants [cocaine] use disorder severe dependence Alcohol use disorder severe dependence Cluster B personality traits Treatment Plan Update: 1) Increase Prozac to 40 mg daily 2) Reduce Depakote in AM to 500 mg, keep bedtime dose at 1000 mg 3) continue other medications unchanged
[2018-02-01 08:20] VITALS: BP 124/87
[2018-02-01 11:58] VITALS: BP 118/70
[2018-02-01 15:59] VITALS: BP 131/72
--- NOTE | 2018-02-01 17:20 | PN- Att Addend ---
Attending Addendum Attending Brief Note 37-year-old gentleman, with history significant for suicide attempts admitted to intensive care unit following a mother she still attempts after overdosing on olanzapine, melatonin and trazodone. He was also intoxicated with alcohol at the time. He was intubated and managed for acute hypoxic respiratory failure and aspiration pneumonia. Following extubation he was downgraded to general medical service and eventually transferred down 2 days ago to the inpatient psychiatric service for further management. Was asked to see him in follow-up. He was observed ambulating freely around the unit. He was alert oriented 3 and answers questions appropriately. There were no issues of concern raised by the patient or by nursing staff. Please recall the medical service as needed for any clinical issues arise.
[2018-02-01 19:46] VITALS: BP 149/68
[2018-02-02 07:54] VITALS: BP 145/68
--- NOTE | 2018-02-02 08:48 | CP SOUTH PROGRESS NOTE PSYCH ---
Psych (Inpt) Progress Note Progress Note Vital Signs Date Time Temp Pulse Resp B/P B/P Pulse O2 O2 Flow FiO2 02/02 0754 96.6 84 145/68 02/01 1946 97.7 96 149/68 02/01 1559 84 131/72 02/01 1158 83 118/70 Mental Status Examination: steady gait, calm and cooperative, appropriate, normal psychomotor activity alert, oriented to time, place, and person normal speech, blunted affect reported mood as "Good", denied suicidal ideation, denied homicidal ideation, denied Hallucinations, denied feeling paranoid, there were no delusions coherent/no difficulties with thought organization, fair Insight, fair Judgment; no short term memory deficits Assessment: 37-year-old single white male who was on medical floor since January 06 following a serious overdose which in turn was taken less than 1 week following discharge from psychiatry. This is in the context of ongoing substance use. Diagnoses: Bipolar Disorder unspecified, no psychosis Stimulants [cocaine] use disorder severe dependence Alcohol use disorder severe dependence Cluster B personality traits Treatment Plan Update: 1) Increase Prozac to 40 mg daily 2) Reduce Depakote in AM to 500 mg, keep bedtime dose at 1000 mg 3) continue other medications unchanged
[2018-02-02 12:08] VITALS: BP 135/72
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
[2018-02-02 16:17] VITALS: BP 141/80
--- NOTE | 2018-02-02 17:01 | CP SOUTH PROGRESS NOTE PSYCH ---
Psych (Inpt) Progress Note Progress Note Include the following elements, when applicable: Involvement in the active treatment of the patient with behavioral observations of the patient and the patient's response to the treatment. Review of the ongoing treatment process in the context of the treatment plan. Indication of how multi-disciplinary staff members are carrying out the treatment plan. Plans for future interventions and recommendations for revision of the treatment plan. Liaison with other physicians/providers. Progress Note: Drs. White and Marta's notes reviewed. Medication list reviewed. Case and treatment plan discussed in team meeting. Staff reports that the patient is denying suicidal ideation. He was fine for most of the weekend but was irritable and angry around 4 PM yesterday. Guarded. Prn Thorazine dose was changed to 100 mg. Patient seen at 2:14 PM. He was asleep in bed but got up and met with me in the office. He is casually dressed, bearded, somewhat overweight. I asked him how we can help him, and he responded that he didn't know. Speech is somewhat slurred. States he spoke with his mother yesterday. Reports that she wants him to go to a long-term program. Patient is afraid of losing his housing. He gets veterans' support for housing although he had an other than honorable discharge for leaving [facility]. History of gambling addiction. Reports that he stopped gambling and banned himself from [employer]. States he is able to tolerate his current level of grogginess. Affect is calm and blunted. Mood is sad at 8/10. Rates anxiety 0/10. Find Thorazine helpful. Feels hopeless and helpless a little bit. Feels worthless. Feels guilty for not paying child support. Reports suicidal ideation. Gives a safety promise for here. Denies homicidal ideation. Denies auditory and visual hallcuinations and paranoid ideation. Reports sleep and appetite are good. Energy is okay. Tolerating medications well. He has a mild resting tremor at the left hand. States yesterday he wanted to cotton picker a chair and throw it at a wall because he felt lonely. He expects visitors today, his cigar head puncher and his environmental advisor. Reports he may have a couple of visitors tomorrow. Reports that he gets lonely and he feels depressed. Misses his younger children, who are in [place]. He has not seen them in over 22 months. 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 He would like to get housing in [place] to be closer to his other children. His current lease is up in May and he is willing to go to an inpatient rehab as long as he can sign a lease for a new apartment by May. IMPRESSION: Slow progress. Continue present treatment plan. Patient is here after a serious overdose in the context of substance abuse and apparent medication non- adherence. We will look into the possibility of long-term rehab for the patient , although the patient has a tendency to become impulsive and demand discharge.
--- NOTE | 2018-02-02 17:03 | SOCIAL WORKER PROG NOTE PSYCH ---
Social Work Progress Note Progress Note The services requested require additional review. You will be contacted regarding the status of this request if further information is needed. An authorization decision will be made within the required timeframes and details of that decision may be found under the member's authorization history. Member Name Member ID Member Subscriber Name Subscriber ID MAYO SÁNCHEZ [id number] 1980 MAYO SÁNCHEZ [id number] Pended Authorization # Client Authorization # Type of Request [id number] CONCURRENT Date of Admission/ Start of Services Requested From Submission Date 01/30/2018 02/02/2018 02/02/2018 Level of Service Type of Service Level of Care Type of Care INPATIENT/HLOC Mental Health Inpatient Inpatient Hospital - Inpatient Hospital Reason Code P76 Provider Name & Address Provider ID Provider Alternate ID NPI # for Authorization NORRIS GUZMAN [id number] [address] [place] [id number]
--- NOTE | 2018-02-02 19:12 | SOCIAL WORKER PROG NOTE PSYCH ---
Social Work Progress Note Progress Note Clinician unable to meet with pt he was in an AA meeting on the unit.
[2018-02-02 20:01] VITALS: BP 135/82
[2018-02-03 08:28] VITALS: BP 130/94
[2018-02-03 12:17] VITALS: BP 138/79
--- NOTE | 2018-02-03 13:13 | CP SOUTH PROGRESS NOTE PSYCH ---
Psych (Inpt) Progress Note Progress Note Include the following elements, when applicable: Involvement in the active treatment of the patient with behavioral observations of the patient and the patient's response to the treatment. Review of the ongoing treatment process in the context of the treatment plan. Indication of how multi-disciplinary staff members are carrying out the treatment plan. Plans for future interventions and recommendations for revision of the treatment plan. Liaison with other physicians/providers. Progress Note: Case and treatment plan discussed in team meeting. Staff reports that the patient is denying SI. Speech is slurred. Gait is off. Patient seen at 10:48 AM. He was in group prior to meeting with me in office. Speech is slurred. I informed him I will lower Thorazine dose to 75 mg and gabapentin dose to 600 mg. He is concerned about these reductions. Affect is calm and blunted. Reports mood is okay, he guesses. Rates sad mood 5/10 and anxiety 4/10. Denies feeling hopeless or helpless. Does feel worthless and guilty. Denies active and passive suicidal ideation. Denies homicidal ideation. Denies auditory and visual hallucinations and paranoid ideation. Reports sleep and appetite are good. Energy is okay. Reports he still spinning around on the decision whether or not to go to an inpatient rehab. He is willing to have a family meeting with his mother. Laboratory results from today significant for cholesterol high at 204, triglycerides high at 424, HDL low at 29, direct LDL high at 114.29, TSH high at 6.010 with normal total T3 and normal free T4. Hemoglobin A1c was normal at 5.0. Valproic acid level was a little low at 48.1, but I am reluctant to increase Depakote dose at this time, given patient's level of sedation and slurred speech. IMPRESSION: Slow progress. Continue present treatment plan. We will consult door machine operator abnormal labs. Continues to require inpatient level of care. Monitor for lightening of sedation/slurred speech with reductions in prn Thorazine and gabapentin doses.
--- NOTE | 2018-02-03 14:29 | SOCIAL WORKER PROG NOTE PSYCH ---
Social Work Progress Note Progress Note Pt agrees to a family meeting with his Mother, we will set it up tomorrow he will reach out to his Mom tico. Pt wants to do soemthing different, he expressed interest in moving to [place] to be closer to his 2 kids, he is still on speaking terms with their Mother and thinks it will be better for him to be involved and sober.
[2018-02-03 16:09] VITALS: BP 144/86
[2018-02-03 20:14] VITALS: BP 145/84
[2018-02-04 07:46] VITALS: BP 140/77
--- NOTE | 2018-02-04 12:06 | SOCIAL WORKER PROG NOTE PSYCH ---
Social Work Progress Note Progress Note [facility] and [facility]. [facility] day program. Pt denies si/hi/ah/vh, he feels like he has a good plan and has sober supports. 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
[2018-02-04 12:14] VITALS: BP 117/70
--- NOTE | 2018-02-04 15:11 | CP SOUTH PROGRESS NOTE PSYCH ---
Psych (Inpt) Progress Note Progress Note Include the following elements, when applicable: Involvement in the active treatment of the patient with behavioral observations of the patient and the patient's response to the treatment. Review of the ongoing treatment process in the context of the treatment plan. Indication of how multi-disciplinary staff members are carrying out the treatment plan. Plans for future interventions and recommendations for revision of the treatment plan. Liaison with other physicians/providers. Progress Note: Case and treatment plan discussed in team meeting. Staff reports that the patient is denying suicidal ideation. He appeared lethargic yesterday. He was falling asleep in group. Family meeting with mother is to be arranged. Patient seen at 1:10 PM. Appears more awake and alert today. Speech is loud and not slurred. Reports he had a telephone intake with Rajinder Patel. Wants option for an [facility] bed. Affect is calm and blunted to euthymic. Family meeting with parents is to be arranged. Reports mood is not bad. Rates sad mood and anxiety both 5/10. Regarding hopelessness, he replied "not so much." Feels less helpless. Denies feeling worthless. Does feel guilty. Denies active suicidal ideation. Has occasional passive suicidal ideation and last had it yesterday. Gives a safety promise for here. Denies homicidal ideation. Denies auditory and visual hallucinations and paranoid ideation. Reports sleep and appetite are good. Energy is fair. Tolerating medications well. Patient agrees to increase Depakote ER dose to 750 mg in the morning and 1000 mg at bedtime. He requests a Prozac dose increase. He had been on 80 mg a day. We will now increase Prozac dose to 60 mg daily. IMPRESSION: Slow progress. Continue present treatment plan. We are looking into placement options. We will check a Depakote level on Friday morning.
[2018-02-04 16:14] VITALS: BP 131/84
[2018-02-04] MEDS ORDERED: TRAZODONE HCL100 M1 PO (17:06)
[2018-02-04] MEDS ORDERED: CHLORPROMAZINE25 M2 PO (17:06)
[2018-02-04] MEDS ORDERED: GABAPENTIN300 M2 PO (17:06)
[2018-02-04] MEDS ORDERED: NICORELIEF2 MG PO (17:06)
[2018-02-04] MEDS ORDERED: ZYPREXA ZYDIS PO (17:06)
[2018-02-04] MEDS ORDERED: DIVALPROEX SOD500 M2 PO (17:06)
[2018-02-04] MEDS ORDERED: DEPAKOTE250 M1 PO (17:06)
[2018-02-04] MEDS ORDERED: FLUOXETINE HCL20 M2 PO (17:06)
[2018-02-04] MEDS ORDERED: ONE DAILY MULT1 EAC2 PO (17:06)
[2018-02-04] MEDS ORDERED: VITAMIN B-1100 MG PO (17:06)
[2018-02-04] MEDS ORDERED: TRICOR48 M1 PO (17:06)
[2018-02-04] MEDS ORDERED: FOLIC ACID1 M1 PO (17:06)
--- NOTE | 2018-02-04 17:18 | Patient Discharge Instructions ---
Psych Discharge [facility] General Discharge Information Reason for Admission: Overdosed with pills in context of substance abuse. Psy Discharge Primary Diag+ Bipolar d/o, depressed Psy Discharge Secondary Diag+ Cocaine use d/o Alcohol use d/o S/p intentional OD Hyperlipidemia Summary Tests/Major Procedures Lab ALT 31 U/L 01/22/18 0649 AST 14 U/L L 01/22/18 0649 Albumin 3.2 g/dL L 01/22/18 0649 Amylase 43 U/L 12/02/17 0625 BUN 7 mg/dL L 01/25/18 0850 Calcium 9.0 mg/dL 01/22/18 0649 Carbon Dioxide 28 mmol/L 01/25/18 0850 Chloride 104 mmol/L 01/25/18 0850 Cholesterol 204 MG/DL H 02/03/18 0645 Cholesterol/HDL Ratio 7 % H 02/03/18 0645 Creatine Kinase 81 U/L 01/11/18 0515 Creatinine 0.9 mg/dL 01/25/18 0850 Free T4 0.81 ng/dL 02/03/18 0645 Glucose 95 mg/dL 01/22/18 0649 HDL Cholesterol 29 mg/dL L 02/03/18 0645 Hemoglobin A1c 5.0 % 02/03/18 0645 LDL Cholesterol Direct 114.29 mg/dL H 02/03/18 0645 Lipase 206 U/L 01/11/18 0515 Magnesium 1.9 mg/dL 01/22/18 0649 Phosphorus 3.1 mg/dL 01/22/18 0649 Potassium 4.4 mmol/L 01/25/18 0850 Sodium 144 mmol/L 01/25/18 0850 TSH &T3 &Free T4 Intrp 6.010 uIU/mL H 02/03/18 0645 Total Protein 6.1 g/dL L 01/07/18 0100 Total T3 1.24 ng/mL 02/03/18 0645 Triglycerides 424 mg/dL H 02/03/18 0645 APTT 33 SEC 01/07/18 1406 INR 1.32 H 01/07/18 1406 PT 14.4 SEC H 01/07/18 1406 Hct 43.0 % 01/24/18 0700 Hgb 14.8 G/DL 01/24/18 0700 MPV 6.6 FL L 01/24/18 0700 Plt Count 485 /CUMM H 01/24/18 0700 WBC 4.7 /CUMM L 01/24/18 0700 Acetaminophen < 10.0 ug/mL L 01/06/18 0115 Serum Alcohol 131.0 MG/DL 01/06/18 0115 Urine Cocaine Screen > 1000 NG/ML H 01/06/18 0057 Valproic Acid < 10.0 ug/mL L 01/07/18 0400 Valproic Acid 54.0 ug/mL 01/20/18 0345 Valproic Acid 34.5 ug/mL L 01/23/18 0719 Valproic Acid 68.7 ug/mL 01/27/18 0700 Valproic Acid 48.1 ug/mL L 02/03/18 0645 Fraction Sodium Excret 1.6 % H 01/15/18 0345 Granular Casts 1-3 /LPF H 01/06/18 0057 Hyaline Casts 1-3 H 01/06/18 0057 Ur Epithelial Cells FEW 01/22/18 1125 Ur Random Creatinine 74.8 mg/dL 01/15/18 0345 Ur Random Potassium 20.5 mmol/L 01/15/18 0345 Ur Random Sodium 218 mmol/L H 01/15/18 0345 Urinalysis LIGHT H 01/06/18 0057 Urine Bacteria FEW H 01/22/18 1125 Urine Clarity HAZY H 01/22/18 1125 Urine Glucose NEG MG/DL 01/22/18 1125 Urine Hemoglobin MOD H 01/22/18 1125 Urine Ketones TRACE H 01/22/18 1125 Urine Mucus FEW 01/15/18 0345 Urine Osmolality 627 MOSM/KG 01/15/18 0345 Urine Protein 30 MG/DL H 01/22/18 1125 Urine RBC >75 /HPF H 01/22/18 1125 Urine Urobilinogen >=8.0 EU/dl H 01/22/18 1125 Urine WBC 3-5 /HPF H 01/22/18 1125 SERVICE DATE: 01/27/18-53 EXAM TYPE: CAT - CT CERV SPINE WO IV CONTRAST; CT HEAD WO IV CONTRAST EXAMINATION: CT HEAD WITHOUT CONTRAST CT CERVICAL SPINE WITHOUT CONTRAST CLINICAL INFORMATION: Fell. Head injury. COMPARISON: None. TECHNIQUE: Imaging was performed from the skull base to vertex without intravenous administration of contrast. In addition, helical noncontrast CT imaging was acquired through the cervical spine and source images were reviewed along with axial reconstructions and sagittal and coronal MPRs. DLP: 1082.18 mGy-cm FINDINGS: HEAD: No intracranial mass, hemorrhage, or midline shift is visualized. The ventricles and sulci are age-appropriate. No extra-axial collections are identified. There is mucosal thickening at the inferior right maxillary sinus. CERVICAL SPINE: There is no evidence of acute cervical spine fracture. Vertebral bodies remain normal in height. Cervical vertebrae have normal alignment. Cervical disc heights are normal. The facet joints are normal. No pre- or paravertebral soft tissue abnormality is identified. Limited assessment of the lung apices is unremarkable. IMPRESSION: 1. No acute intracranial pathology. 2. No CT evidence of acute cervical spine fracture or traumatic subluxation EKG 01/17/18 showed sinus rhythm @ 74, borderline T abnormalities, inferior leads , minor changes since previous tracing, borderline EKG, QT 408, QTc 453. Studies Pending at DC: None. Patient Instructions Contact Information Your Psychiatrist on [facility] was Alverto Fleming MD * If you are experiencing an emergency related to this hospitalization, please call [phone] to contact the treating psychiatrist or the psychiatrist-on- call. * To Request a copy of your medical records, please contact the Medical Records Department at [phone]. * To request results of studies pending at the time of discharge, please call [phone]. * Continue your Medications until directed to stop by your Healthcare provider. General Medication Information Please continue to take your new medications and your continued home medications , unless otherwise indicated on your discharge medication list, or unless directed by your MD or [employer] ARCHITECT to stop them. Special Instructions Diet Regular Activity Normal Other Inst/Recommendations Stay away from drugs & alcohol. See PCP about medical condx's/abnml labs. - Tobacco Use Treatment Offered Post DC Medications Offered: Script Given-See Med List Post DC Tobacco Treatment Plan: Nas Tobacco Tx Pgm Program Appt Date: 02/18/18 Program Appt Time: 1600 - EtOH/Drug Use D/O Treatment Offered Post DC Medications Offered: Med Not Indicated for D/O Post DC EtOH/SubAbuse [place] Plan: Other SubAbuse/Dual Pgm ([facility] ) Program Appt Date: 02/04/18 Program Appt Time: 1900 Metabolic Screening () Not Applicable, patient not on a neuroleptic. OR () Patient on a neuroleptic(s) . Enter below results for Hemoglobin A1C, and lipid panel if obtained during the last 365 days. BMI: 29.000 Blood Pressure: 131/84 Laboratory Results From [facility] (If applicable): [x] Lab Cholesterol 204 MG/DL H 02/03/18 0645 Cholesterol/HDL Ratio 7 % H 02/03/18 0645 HDL Cholesterol 29 mg/dL L 02/03/18 0645 Hemoglobin A1c 5.0 % 02/03/18 0645 LDL Cholesterol Direct 114.29 mg/dL H 02/03/18 0645 LDL Cholesterol, Calc ND mg/dL 02/03/18 0645 Triglycerides 424 mg/dL H 02/03/18 0645 Advance Directives Does the Patient have Medical Advance Directives No/Refused further info Does Pt have Psychiatric Advance Directives? No/Refused further info Does Patient have a Designated Surrogate Decision Maker: No Information About Psychiatric Advance Directives Provided? Refused Discharge Plan Post Hospital Treatment Plan: [facility] rehab today. Patient needs repeat Depakote level on 02/07/18 or shortly thereafter. Needs follow up for high TSH and for abnormal lipids.
--- NOTE | 2018-02-04 17:21 | IP INCIDENTAL NOTE PSYCH ---
Incidental Note Notation: Patient was accepted to [facility] today. He's been there before. Likes it there. Patient seen. Feels good about going to [facility]. Mood okay. Denies SI ( active and passive), HI, AH, VH, PI. Feels ready and safe for discharge.
[2018-02-04 19:57] VITALS: BP 145/68
--- NOTE | 2018-02-05 14:38 | DISCHARGE SUMMARY REPORT-PSYCH ---
Visit Information Visit Dates/Diagnosis' Admission Date: 01/30/18 Discharge Date: 02/04/18 Reason for Admission: Overdosed with pills in context of substance abuse. Psy Discharge Primary Diag: Bipolar d/o, depressed Psy Discharge Secondary Diag: Cocaine use d/o Alcohol use d/o S/p intentional OD Hyperlipidemia Hospital Course Significant Lab Findings: Lab ALT 31 U/L 01/22/18 0649 AST 14 U/L L 01/22/18 0649 Albumin 3.2 g/dL L 01/22/18 0649 Amylase 43 U/L 12/02/17 0625 BUN 7 mg/dL L 01/25/18 0850 Calcium 9.0 mg/dL 01/22/18 0649 Carbon Dioxide 28 mmol/L 01/25/18 0850 Chloride 104 mmol/L 01/25/18 0850 Cholesterol 204 MG/DL H 02/03/18 0645 Cholesterol/HDL Ratio 7 % H 02/03/18 0645 Creatine Kinase 81 U/L 01/11/18 0515 Creatinine 0.9 mg/dL 01/25/18 0850 Free T4 0.81 ng/dL 02/03/18 0645 Glucose 95 mg/dL 01/22/18 0649 HDL Cholesterol 29 mg/dL L 02/03/18 0645 Hemoglobin A1c 5.0 % 02/03/18 0645 LDL Cholesterol Direct 114.29 mg/dL H 02/03/18 0645 Lipase 206 U/L 01/11/18 0515 Magnesium 1.9 mg/dL 01/22/18 0649 Phosphorus 3.1 mg/dL 01/22/18 0649 Potassium 4.4 mmol/L 01/25/18 0850 Sodium 144 mmol/L 01/25/18 0850 TSH &T3 &Free T4 Intrp 6.010 uIU/mL H 02/03/18 0645 Total Protein 6.1 g/dL L 01/07/18 0100 Total T3 1.24 ng/mL 02/03/18 0645 Triglycerides 424 mg/dL H 02/03/18 0645 APTT 33 SEC 01/07/18 1406 INR 1.32 H 01/07/18 1406 PT 14.4 SEC H 01/07/18 1406 Hct 43.0 % 01/24/18 0700 Hgb 14.8 G/DL 01/24/18 0700 MPV 6.6 FL L 01/24/18 0700 Plt Count 485 /CUMM H 01/24/18 0700 WBC 4.7 /CUMM L 01/24/18 0700 Acetaminophen < 10.0 ug/mL L 01/06/18 0115 Serum Alcohol 131.0 MG/DL 01/06/18 0115 Urine Cocaine Screen > 1000 NG/ML H 01/06/18 0057 Valproic Acid < 10.0 ug/mL L 01/07/18 0400 Valproic Acid 54.0 ug/mL 01/20/18 0345 Valproic Acid 34.5 ug/mL L 01/23/18 0719 Valproic Acid 68.7 ug/mL 01/27/18 0700 Valproic Acid 48.1 ug/mL L 02/03/18 0645 Fraction Sodium Excret 1.6 % H 01/15/18 0345 Granular Casts 1-3 /LPF H 01/06/18 0057 Hyaline Casts 1-3 H 01/06/18 0057 Ur Epithelial Cells FEW 01/22/18 1125 Ur Random Creatinine 74.8 mg/dL 01/15/18 0345 Ur Random Potassium 20.5 mmol/L 01/15/18 0345 Ur Random Sodium 218 mmol/L H 01/15/18 0345 Urinalysis LIGHT H 01/06/18 0057 Urine Bacteria FEW H 01/22/18 1125 Urine Clarity HAZY H 01/22/18 1125 Urine Glucose NEG MG/DL 01/22/18 1125 Urine Hemoglobin MOD H 01/22/18 1125 Urine Ketones TRACE H 01/22/18 1125 Urine Mucus FEW 01/15/18 0345 Urine Osmolality 627 MOSM/KG 01/15/18 0345 Urine Protein 30 MG/DL H 01/22/18 1125 Urine RBC >75 /HPF H 01/22/18 1125 Urine Urobilinogen >=8.0 EU/dl H 01/22/18 1125 Urine WBC 3-5 /HPF H 01/22/18 1125 SERVICE DATE: 01/27/18-53 EXAM TYPE: CAT - CT CERV SPINE WO IV CONTRAST; CT HEAD WO IV CONTRAST EXAMINATION: CT HEAD WITHOUT CONTRAST CT CERVICAL SPINE WITHOUT CONTRAST CLINICAL INFORMATION: Fell. Head injury. COMPARISON: None. TECHNIQUE: Imaging was performed from the skull base to vertex without intravenous administration of contrast. In addition, helical noncontrast CT imaging was acquired through the cervical spine and source images were reviewed along with axial reconstructions and sagittal and coronal MPRs. DLP: 1082.18 mGy-cm FINDINGS: HEAD: No intracranial mass, hemorrhage, or midline shift is visualized. The ventricles and sulci are age-appropriate. No extra-axial collections are identified. There is mucosal thickening at the inferior right maxillary sinus. CERVICAL SPINE: There is no evidence of acute cervical spine fracture. Vertebral bodies remain normal in height. Cervical vertebrae have normal alignment. Cervical disc heights are normal. The facet joints are normal. No pre- or paravertebral soft tissue abnormality is identified. Limited assessment of the lung apices is unremarkable. IMPRESSION: 1. No acute intracranial pathology. 2. No CT evidence of acute cervical spine fracture or traumatic subluxation EKG 01/17/18 showed sinus rhythm @ 74, borderline T abnormalities, inferior leads , minor changes since previous tracing, borderline EKG, QT 408, QTc 453. Course Complications: None. Consultations: The patient was seen by Dr. Romeo for follow up note. Please see Dr. Romeo's documentation for additional information. Allergies: Coded Allergies: cyclobenzaprine (TREMORS 08/07/17) bupropion (Mild, Increase in afshan, reported on a previous admission 08/07/17) Hospital Course/TX Response: The patient was monitored on the unit for safety and mood disorder. He participated in multi-modal treatments on the unit. The patient initially was quite sedated with unsteady gait and slurred speech. These improved dramatically with lightening of doses of Thorazine prn and gabapentin prn. Mood and affect have improved. Suicidal ideation has remitted. The patient agreed to go to an inpatient rehab and he was accepted at [facility] in [place]. Progress note from date of discharge, 02/04/18: "Case and treatment plan discussed in team meeting. Staff reports that the patient is denying suicidal ideation. He appeared lethargic yesterday. He was falling asleep in group. Family meeting with mother is to be arranged. Patient seen at 1:10 PM. Appears more awake and alert today. Speech is loud and not slurred. Reports he had a telephone intake with Rajinder Patel. Wants option for an [facility] bed. Affect is calm and blunted to euthymic. Family meeting with parents is to be arranged. Reports mood is not bad. Rates sad mood and anxiety both 5/10. Regarding hopelessness, he replied "not so much." Feels less helpless. Denies feeling worthless. Does feel guilty. Denies active suicidal ideation. Has occasional passive suicidal ideation and last had it yesterday. Gives a safety promise for here. Denies homicidal ideation. Denies auditory and visual hallucinations and paranoid ideation. Reports sleep and appetite are good. Energy is fair. Tolerating medications well. Patient agrees to increase Depakote ER dose to 750 mg in the morning and 1000 mg at bedtime. He requests a Prozac dose increase. He had been on 80 mg a day. We will now increase Prozac dose to 60 mg daily. IMPRESSION: Slow progress. Continue present treatment plan. We are looking into placement options. We will check a Depakote level on Friday morning." Incidental Note Notation: Patient was accepted to [facility] today. He's been there before. Likes it there. Patient seen. Feels good about going to [facility]. Mood okay. Denies SI ( active and passive), HI, AH, VH, PI. Feels ready and safe for discharge." Discharge HBIPS - Tobacco Use Treatment Offered Post DC Medications Offered: Script Given-See Med List Post DC Tobacco Treatment Plan: Nas Tobacco Tx Pgm Program Appt Date: 02/18/18 Program Appt Time: 1600 - EtOH/Drug Use D/O Treatment Offered Post DC Medications Offered: Med Not Indicated for D/O Post DC EtOH/SubAbuse TX Plan: Other SubAbuse/Dual Pgm ([facility]) Program Appt Date: 02/04/18 Program Appt Time: 1900 Metabolic Screening - Screen if on a Neuroleptic Medication - Metabolic screening should include: - Blood Pressure, BMI, Glucose or Hgb A1c, & a - Lipid profile from within the past 365 days. Metabolic Screening () Not Applicable, patient not on a neuroleptic. OR () Patient on a neuroleptic(s) . Enter below results for Hemoglobin A1C, and lipid panel if obtained during the last 365 days. BMI: 29.000 Blood Pressure: 145/68 Laboratory Results From [facility] (If applicable): [x] Lab Cholesterol 204 MG/DL H 02/03/18 0645 Cholesterol/HDL Ratio 7 % H 02/03/18 0645 HDL Cholesterol 29 mg/dL L 02/03/18 06 Hemoglobin A1c 5.0 % 02/03/18 06 LDL Cholesterol Direct 114.29 mg/dL H 02/03/18 06 LDL Cholesterol, Calc ND mg/dL 02/03/18644 Triglycerides 424 mg/dL H 02/03/18 0645 Discharge Instructions General Discharge Information Multiple Neuroleptics: ([x]) Not Applicable OR Document below three failed attempts at monotherapy, or a plan to taper to monotherapy, or augmentation of Clozapine. () Discharge Diet Regular Discharge Activity Normal DC Disposition: Patient is going to [facility] rehab in [place]. Referrals Ordered Referrals Provider Referral 02/04/18 For Groups: [[facility]] Pt has been accepted to [facility] in [place] and will be trasnported there by Marquita this evening. Prescriptions Stop taking the following medications: Nicotine Polacrilex (Nicorelief) 4 MG GUM ORAL Q2H as needed for SMOKING CESSATION Qty = 100 Famotidine (Famotidine) 20 MG TABLET ORAL DAILY Qty = 30 Divalproex Sodium (Divalproex Sodium) 250 MG TABLET.DR ORAL Every Morning Qty = 90 Divalproex Sodium (Depakote) 500 MG TABLET.DR ORAL Every night Qty = 60 Chlorpromazine HCl (Chlorpromazine HCl) 25 MG TABLET ORAL EVERY 6 HOURS NEEDED as needed for AGITATION AND ANXIETY Qty = 30 Continue taking these medications: Trazodone HCl (Trazodone HCl) 100 MG TABLET 1 Tablet ORAL Every night Qty = 30 Comments: Last Taken: 02/03/18 Time: 21:44 PM This prescription has been renewed Multivitamin (One Daily Multivitamin) 1 EACH TABLET 1 Tablet ORAL DAILY Qty = 30 Comments: Last Taken: 02/04/18 Time: 08:19 AM This prescription has been renewed Start taking the following new medications: Nicotine (Nicorelief) 2 MG GUM 1 Gum ORAL EVERY 2 HOURS NEEDED as needed for nitoine craving Qty = 100 No Refills Comments: Last Taken: 02/04/18 Time: 17:28 PM Fenofibrate (Tricor) 48 MG TABLET 1 Milligram ORAL DAILY Qty = 30 No Refills Comments: Last Taken: 02/04/18 Time: 08:19 AM Divalproex Sodium (Divalproex Sodium) 500 MG TABLET.DR 2 Tablet ORAL 2200 Qty = 60 No Refills Comments: Last Taken: 02/03/18 Time: 21:27 PM Gabapentin (Gabapentin) 300 MG CAPSULE 2 Capsule ORAL EVERY SIX HOURS NEEDED as needed for OFF-LABEL FOR ANXIETY Qty = 180 No Refills Comments: Last Taken: 02/04/18 Time: 13:23 Fluoxetine HCl (Fluoxetine HCl) 20 MG CAPSULE 3 Capsule ORAL DAILY Qty = 90 No Refills Comments: Last Taken: 02/04/18 Time: 08:19 AM Chlorpromazine HCl (Chlorpromazine HCl) 25 MG TABLET 3 Tablet ORAL EVERY SIX HOURS NEEDED as needed for off-label for anxty/ agitation Qty = 270 No Refills Comments: Last Taken: 02/04/2018 Time: 17:29 PM Divalproex Sodium (Depakote) 250 MG TABLET.DR 3 Tablet ORAL DAILY Qty = 90 No Refills Comments: Last Taken: 02/04/18 Time: 13:23 PM The following medications have been changed: Old: Folic Acid (Folic Acid) 1 MG TABLET 1 Milligram ORAL DAILY Qty = 30 New: Folic Acid (Folic Acid) 1 MG TABLET 1 Milligram ORAL DAILY Qty = 30 Comments: Last Taken: 02/04/18 Time: 08:19 AM Old: Thiamine HCl (Vitamin B-1) 100 MG TABLET 100 Milligram ORAL DAILY Qty = 30 New: Thiamine HCl (Vitamin B-1) 100 MG TABLET 1 Tablet ORAL DAILY Qty = 30 Comments: Last Taken: 02/04/18 Time: 08:19 AM Old: Olanzapine (Zyprexa Zydis) 10 MG TAB.RAPDIS 2 Tablet ORAL 2200 Qty = 30 New: Olanzapine (Zyprexa Zydis) 10 MG TAB.RAPDIS 2 Tablet ORAL 2200 Qty = 60 Comments: Last Taken: 02/03/18 Time: 21:27 PM Other Inst/Recommendations Stay away from drugs & alcohol. See PCP about medical condx's/abnml labs. Studies Pending at Discharge None. Copies To: [facility] [employer]
== END 2018-02-04 20:16 | DRG 753 ==
LOC: CP SOUTH 10:27 → ENRESERV 23:59 → CP SOUTH 02-02 14:06
PROVIDERS: Psychiatry & Neurology Psychiatry
DX: F31.9 Bipolar disorder, unspecified (principal); F14.90 Cocaine use, unspecified, uncomplicated; F10.10 Alcohol abuse, uncomplicated; E78.5 Hyperlipidemia, unspecified; Z91.5 Personal history of self-harm
CPT/HCPCS: 36415; J1650; J3490

== ENCOUNTER 2018-03-30 11:56 | Inpatient (IN) | payer OTHER ==
[~2018-03-30] VITALS: Ht 188 cm; Wt 117.3 kg
[~2018-03-30 11:56] MED LIST changes: +CHLORPROMAZINE25 M2 PO; +DEPAKOTE250 M1 PO; +TRICOR48 M1 PO; +ZYPREXA ZYDIS PO
--- NOTE | 2018-03-30 12:16 | ED PSYCHIATRIC COMPLAINT ---
History of Present Illness General Chief Complaint: ETOH/Drug Related Complaint Stated Complaint: ASKING FOR DETOX FROM ETOH Source: patient Exam Limitations: no limitations Vital Signs & Intake/Output Vital Signs & Intake/Output Vital Signs Date Time Temp Pulse Resp B/P B/P Pulse O2 O2 Flow FiO2 Mean Ox Delivery Rate 03/30 2115 98.6 66 18 130/70 03/30 2115 98.6 66 18 130/70 95 Room Air 03/30 1915 98.6 95 18 132/80 95 Room Air 03/30 1730 98.1 80 16 138/78 99 Room Air Room Air 03/30 1322 98 Room Air 03/30 1316 98.6 111 18 177/93 03/30 1200 98.6 111 18 177/93 98 Room Air Allergies Coded Allergies: cyclobenzaprine (TREMORS 08/07/17) bupropion (Mild, Increase in afshan, reported on a previous admission 08/07/17) Triage Note: 37 YO MALE TO TRIAGE REQUESTING ETOH DETOX, REPORTS HAD A 20 OZ OF BEER THIS AROUND 0400. STATES HX OF SEIZURES WITH WIHTDRAWL. STATES ALSO USES COCAINE, LAST USE WAS 2 DAYS AGO. +SI, STATES "I WOULD TAKE MEDICATION" Triage Nurses Notes Reviewed? yes HPI: 37-year-old male with significant history of depression, drug use, and suicide attempts for a total of more than 20 attempts. He presents today for detox from alcohol, stating his friend brought him in. He reports feeling chills and also having diarrhea. Patient states his last drink was this morning at 4 AM at which point he had a 24 ounce beer. He typically drinks beer daily and also sometimes Gin, however he states he is uncertain how to quantify as a changes from a daily basis. He states that 2 days ago he had $50 worth of cocaine and also marijuana. He typically takes Depakote however it has been 4 days since his last pill. He states that this morning and currently in the ED he is having suicidal thoughts, however no thoughts of harming others. He is in an IOP program at . He smokes about 1 pack per day. He states that he lives with a roommate and his support system consists of friends. He denies any chest pain, shortness of breath, abdominal pain, nausea, vomiting. (Chauncey PRIETO,Niko Iniguez) Reconcile Medications Chlorpromazine HCl 25 MG TABLET 3 TAB PO Q6P PRN off-label for anxty/agitation Divalproex Sodium 500 MG TABLET.DR 2 TAB PO 2200 bipolar disorder Divalproex Sodium (Depakote) 250 MG TABLET.DR 3 TAB PO DAILY bipolar disorder Fenofibrate (Tricor) 48 MG TABLET 1 MG PO DAILY high triglycerides Fluoxetine HCl (Prozac) 20 MG CAPSULE 60 MG PO DAILY MENTAL HEALTH (Reported) Fluoxetine HCl 20 MG CAPSULE 3 CAP PO DAILY depression Folic Acid 1 MG TABLET 1 MG PO DAILY folate supplement Gabapentin 300 MG CAPSULE 2 CAP PO Q6P PRN OFF-LABEL FOR ANXIETY Multivitamin (One Daily Multivitamin) 1 EACH TABLET 1 TAB PO DAILY vitamin supplement Nicotine (Nicorelief) 2 MG GUM 1 GUM PO Q2P PRN nitoine craving Olanzapine (Zyprexa Zydis) 10 MG TAB.RAPDIS 2 TAB PO 0 Bipolar disorder Thiamine HCl (Vitamin B-1) 100 MG TABLET 1 TAB PO DAILY thiamine supplement Trazodone HCl 100 MG TABLET 1 TAB PO QPM SLEEP HELP (Katie PRIETO,Freddie) Past History Travel History Traveled to [place] past 21 day No Medical History Any Pertinent Medical History? 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 No (Chauncey PRIETO,Niko Iniguez) Review of Systems Review of Systems Constitutional: Reports: see HPI. EENTM: Reports: no symptoms. Respiratory: Reports: no symptoms. Cardiovascular: Reports: no symptoms. GI: Reports: see HPI. Genitourinary: Reports: no symptoms. Musculoskeletal: Reports: no symptoms. Skin: Reports: no symptoms. Neurological/Psychological: Reports: see HPI. Hematologic/Endocrine: Reports: no symptoms. Immunologic/Allergic: Reports: no symptoms. All Other Systems: Reviewed and Negative (Chauncey PRIETO,Niko Iniguez) Physical Exam Physical Exam General Appearance: well developed/nourished, no apparent distress, alert, awake , comfortable Head: atraumatic, normal appearance Eyes: Bilateral: normal appearance, EOMI. Ears, Nose, Throat: normal pharynx, normal ENT inspection, hearing grossly normal Neck: normal inspection, full range of motion Respiratory: normal breath sounds, chest non-tender, no respiratory distress Cardiovascular: tachycardia Gastrointestinal: soft, non-tender Neurological/Psychiatric: no motor/sensory deficits, awake, alert, normal mood/ affect, calm, oriented x 3 Behavoir/Eye Contact/Speech: cooperative, normal speech, good eye contact Thoughts/Hallucinations: normal thought pattern, no apparent hallucination Skin: intact, normal color, diaphoresis SAD PERSONS SAD PERSONS Response Value Male Sex? yes 1 Age <19 or >45 years? yes 1 Depression/Hopelessness? yes 2 Previous Attempts/Psych Care yes 1 Excessive Ethanol/Drug Use? yes 1 Single//? yes 1 Organized/Serious Attempt yes 2 Social Support? has support 0 Stated Future Intent? yes 2 Total 11 SAD PERSONS Done? yes (Chauncey PRIETO,Niko Iniguez) Progress Differential Diagnosis: drug intoxication, drug overdose, drug withdrawal, electrolyte abnormality Plan of Care: Orders Procedure Date/time Status Regular Diet 03/31 B Active Continuous Observation Monitor 03/31 0700 Active Continuous Observation Monitor 03/31 0300 Active Continuous Observation Monitor 03/30 2300 Active Patient Data - inpatient psych 03/30 2149 Active Admit to inpatient psych 03/30 2149 Active Continuous Observation Monitor 03/30 1900 Active Add-on Test (ER Only) 03/30 1618 Active EKG 03/30 1618 Active ED CRISIS PSYCH CONSULT 03/30 1358 Active Continuous Observation Monitor 03/30 1321 Active TROPONIN LEVEL 03/30 1305 Complete CIWA 03/30 1241 Active URINE DRUGS OF ABUSE 03/30 1241 Complete MAGNESIUM 03/30 1241 Complete ETHANOL 03/30 1241 Complete DEPAKOTE LEVEL 03/30 1241 Complete COMPREHENSIVE METABOLIC PANEL 03/30 1241 Complete CBC WITHOUT DIFFERENTIAL 03/30 1241 Complete Vital Signs 03/30 UNK Active Nursing Misc 03/30 UNK Active CIWA 03/30 UNK Active Alternative Nursing Therapy 03/30 UNK Active Activity/Ambulation 03/30 UNK Active Current Medications Sig/Minerva Start time Last Medication Dose Stop Time Status Admin Lorazepam 2 MG ONCE ONE 03/30 2145 UNVr (Ativan) 03/30 2146 Laboratory Tests 03/30/18 1305: Anion Gap 10, Estimated GFR > 60, BUN/Creatinine Ratio 8.0, Glucose 91, Calcium 9.3, Magnesium 2.0, Total Bilirubin 0.8, AST 26, ALT 42, Alkaline Phosphatase 70 , Troponin I < 0.01, Total Protein 6.6, Albumin 4.1, Globulin 2.5, Albumin/ Globulin Ratio 1.6, CBC w Diff NO MAN DIFF REQ, RBC 5.03, MCV 90.2, MCH 31.5 H, MCHC 34.9, RDW 12.9, MPV 6.2 L, Gran % 66.7, Lymphocytes % 26.2, Monocytes % 5.9, Eosinophils % 0.8, Basophils % 0.4, Absolute Granulocytes 2.9, Absolute Lymphocytes 1.1 L, Absolute Monocytes 0.3, Absolute Eosinophils 0, Absolute Basophils 0, Valproic Acid < 10.0 L, Serum Alcohol 22.0 03/30/18 1244: Urine Opiates Screen < 100, Methadone Screen < 40, Barbiturate Screen < 60, Ur Phencyclidine Scrn < 6.00, Amphetamines Screen 222, U Benzodiazepines Scrn < 85, Urine Cocaine Screen > 1000 H, Urine Cannabis Screen > 80.00 H 37-year-old male with significant history of alcohol abuse, substance use, suicidal attempts, presenting for alcohol withdrawal. Labs were ordered and patient was placed on [facility] protocol for alcohol detox. Initial ED EKG: NSR, no ST T wave changes Prior EKG: unchanged Hand-Off Endorsed To: Freddie Wilson MD Endorsed Time: 1899 Pending: consult, other ([facility]) (Chauncye PRIETO,Niko Iniguez) Departure Departure Disposition: STILL A PATIENT Condition: Stable Referrals: Niko Hernandez MD (PCP/Family) Departure Forms: Customer Survey General Discharge Information (Niko Grossman MD) Departure Clinical Impression Primary Impression: Suicide attempt Secondary Impressions: Alcohol abuse Psych Admission Note Psychiatric Admission: I have seen and evaluated MAYO SÁNCHEZ. I have also reviewed all the pertinent lab results and diagnostic results. MAYO SÁNCHEZ will be admitted to our inpatient Psychiatric unit for treatment and care. (Katie PRIETO,Freddie)
[2018-03-30 13:16] VITALS: BP 177/93
[2018-03-30 13:16] LABS: ABSOLUTE BASOPHIL COUNT 0 /CUMM (0.0-0.2); ABSOLUTE EOSINOPHIL COUNT 0 /CUMM (0.0-0.7); ABSOLUTE GRANULOCYTE CT 2.9 /CUMM (1.4-6.5); ABSOLUTE LYMPH COUNT 1.1 /CUMM (1.2-3.4); ABSOLUTE MONOCYTE COUNT 0.3 /CUMM (0.10-0.60); BASOPHIL % 0.4 % (0.0-2.0); EOSINOPHIL % 0.8 % (0-5); GRANULOCYTE % 66.7 % (42.2-75.2); HEMATOCRIT 45.4 % (42-52); MEAN CORPUSCULAR HGB 31.5 PG (27.0-31.0); MEAN CORPUSCULAR HGB CONC 34.9 G/DL (33.0-37.0); MEAN CORPUSCULAR VOLUME 90.2 FL (80.0-94.0); MEAN PLATELET VOLUME 6.2 FL (7.4-10.4); PLATELET COUNT 270 /CUMM (130-400); RBC DISTRIBUTION WIDTH 12.9 % (11.5-14.5); RED BLOOD CELL CT 5.03 /CUMM (4.70-6.10); WHITE BLOOD CELL COUNT 4.3 /CUMM (4.8-10.8)
--- NOTE | 2018-03-30 18:50 | ED PSYCH CRISIS CONSULTATION ---
Crisis Consult Basic Assessment Date of Consult: 03/30/18 Responsible Person/Accompanied By: Self Insurance Authorization: Insurance #1: Insurance name: LYNETTE CASANOVA Phone number: Policy number: [id number] Group number: Authorization number: ED Provider: Patient's ED Provider: Niko Grossman MD Primary Care Physician: Patient's PCP: Niko Hernandez MD PCP's Current Psychiatrist: Ann Chen MD Chief Complaint: ETOH/Drug Related Complaint Patient's Quote: "I'm having thoughts to overdose on mymedications". Present Illness: Pt is a 37 year old single male brought to the Emergency Department by his friend today. Upon arrival pt requested ETOH detox. At present, pt reports he is having suicidal thoughts to overdose on his medications. Pt report he has been using Marijuana, Cocaine and Alcohol for the past couple of days. Currently he is experiencing withdrawal symptoms, he is "shaking, nausea and upset stomach ". Pt was alert and oriented x3. Pt reports he's feeling depressed and suicidal with a plan, he denies AH/VH. Pt states he hasn't been sleeping because he has not taken his medication Trazodone for the past 5 days as well as all his other psychotropic medications. Pt states he attempted suicidal January 17, 2018 by overdose on medicatiosn and he spent 4 weeks on the medical floor here at [facility]. Pt states he believes he is an addict because his primary problem is "all my drug use and drinking". Pt reports he recently completed substance abuse treatment at [facility] in [place] February 04 to March 07, 2018 and relapsed 2 days ago. Pt was active in treatment at [facility], he was admitted to [facility] on 03/17/18. Pt last attended group on 03/25/18. Also, pt was admitted to [facility] on the following dates this year: August 08, 2017, December 01, 2017, December 20, 2017 and January 30, 2018. Pt was discharged from [facility] with the following medications. Trazodone HCI 100mg, Divalproex Sodium 500 mg, Divalproex Sodium 250 mgs, Gabapentin 300mg, Fluoxetine HCI 20mg, Chlorpromazine HCI 25mg, Tricor 48mg. Pt's lab report showed that his Depakote level was low. Utox today was positive for Cocaine, Alcohol and Marijuana. Pt states that he has a history of sobriety for approximately 8 months and during this time he was positively supported by his attendance to AA/NA meetings and having a sponsor. Pt reports he has a history of Seizures when detoxing from Alcohol. Pt requested volunatary admission to [facility] for mental health treatment. Patient's Address: [address] [place] [address] Other M. Who Do You Live With? Patient/Self Family/Informants Interviewed: no family/collateral ID'd Allergies - Coded Allergies: cyclobenzaprine (TREMORS 08/07/17) bupropion (Mild, Increase in afshan, reported on a previous admission 08/07/17) Current Medications - Scheduled Medications Divalproex Sodium 500 MG TABLET. 2 TAB PO 0 bipolar disorder #60 TAB Prescribed by Alverto Fleming MD on 02/04/18 Divalproex Sodium (Depakote) 250 MG TABLET. 3 TAB PO DAILY bipolar disorder #90 TAB Prescribed by Alverto Fleming MD on 02/04/18 Fenofibrate (Tricor) 48 MG TABLET 1 MG PO DAILY high triglycerides #30 TAB Prescribed by Alverto Fleming MD on 02/04/18 Fluoxetine HCl (Prozac) 20 MG CAPSULE 60 MG PO DAILY MENTAL HEALTH (Reported) Entered as Reported by Tyron Issa on 03/30/181946 Fluoxetine HCl 20 MG CAPSULE 3 CAP PO DAILY depression #90 CAP Prescribed by Alverto Fleming MD on 02/04/18 Folic Acid 1 MG TABLET 1 MG PO DAILY folate supplement #30 TAB Prescribed by Alverto Fleming MD on 02/04/18 Multivitamin (One Daily Multivitamin) 1 EACH TABLET 1 TAB PO DAILY vitamin supplement #30 TAB Prescribed by Alverto Fleming MD on 02/04/18 Olanzapine (Zyprexa Zydis) 10 MG TAB.RAPDIS 2 TAB PO 2200 Bipolar disorder #60 TAB Prescribed by Alverto Fleming MD on 02/04/18 Thiamine HCl (Vitamin B-1) 100 MG TABLET 1 TAB PO DAILY thiamine supplement # 30 TAB Prescribed by Alverto Fleming MD on 02/04/18 Trazodone HCl 100 MG TABLET 1 TAB PO QPM SLEEP HELP #30 TAB Prescribed by Alverto Fleming MD on 02/04/18 Scheduled PRN Medications Chlorpromazine HCl 25 MG TABLET 3 TAB PO Q6P PRN off-label for anxty/agitation #270 TAB Prescribed by Alverto Fleming MD on 02/04/18 Gabapentin 300 MG CAPSULE 2 CAP PO Q6P PRN OFF-LABEL FOR ANXIETY #180 CAP Prescribed by Alverto Fleming MD on 02/04/18 Nicotine (Nicorelief) 2 MG GUM 1 GUM PO Q2P PRN nitoine craving #100 GUM Prescribed by Alverto Fleming MD on 02/04/18 Laboratory Results: Laboratory Tests 03/30/18 1305: Anion Gap 10, Estimated GFR > 60, BUN/Creatinine Ratio 8.0, Glucose 91, Calcium 9.3, Magnesium 2.0, Total Bilirubin 0.8, AST 26, ALT 42, Alkaline Phosphatase 70 , Troponin I < 0.01, Total Protein 6.6, Albumin 4.1, Globulin 2.5, Albumin/ Globulin Ratio 1.6, CBC w Diff NO MAN DIFF REQ, RBC 5.03, MCV 90.2, MCH 31.5 H, MCHC 34.9, RDW 12.9, MPV 6.2 L, Gran % 66.7, Lymphocytes % 26.2, Monocytes % 5.9, Eosinophils % 0.8, Basophils % 0.4, Absolute Granulocytes 2.9, Absolute Lymphocytes 1.1 L, Absolute Monocytes 0.3, Absolute Eosinophils 0, Absolute Basophils 0, Valproic Acid < 10.0 L, Serum Alcohol 22.0 03/30/18 1244: Urine Opiates Screen < 100, Methadone Screen < 40, Barbiturate Screen < 60, Ur Phencyclidine Scrn < 6.00, Amphetamines Screen 222, U Benzodiazepines Scrn < 85, Urine Cocaine Screen > 1000 H, Urine Cannabis Screen > 80.00 H Past History Past Medical History Neurological: delerium tremens, restless leg syndrome, ETOH withdrawal seizures EENT: NONE Cardiovascular: hypertension, hyperlipidemia Respiratory: NONE Gastrointestinal: NONE Hepatic: NONE Renal: NONE Musculoskeletal: Left knee meniscal tear Psychiatric: alcohol dependence, anxiety, bipolar disease, depression, insomnia, substance abuse, Suicidal ideation, overdose suicide attempt X 15 Endocrine: NONE Blood Disorders: NONE Cancer(s): NONE 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 Complete fci Rehab @ [facility] 2018 He appears to have good insight into his need for treatment and is willing to attend. Physical Limitations (Interventions): None noted Psychiatric Treatment History Psych Treatment Psychiatric Treatment Yes Inpatient Treatment Yes Outpatient Treatment Yes Location of Treatment [facility], [facility], [facility] Reason for Treatment SI, Substance Abuse Dates of Treatment February, Response to Treatment Relapse Diagnosis by History: By Hx. 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 Reason for Treatment Cocaine, Alcohol, Marijuana Dates of Treatment January,February 2018 Response to Treatment Relapse Current Mental Status Mental Status Orientation: Person, Place, Situation Affect: Anxious, Depressed Speech: Soft Neuro-vegetative: Concentration Poor, Helpless, Sleep Disturbance Appearance Appearance- Dress/Hygiene: Disheveled unkempt, poor hygiene, long hair ponytail. Behaviors Thought Process: WNL Thought Content: WNL Memory: WNL Insight: Fair SI/HI Risk Assessment Past Suicidal Ideation/Attempts Yes Current Suicidal Ideation/Att Yes Past Homicidal Ideation/Att: No Current Homicidal Ideation/Attempts No Degree of Intent: Plan, States Intent Danger To: Self Risk Factors: high anxiety/distress, history of suicide atmpts, SA/MH hospitalized, substance abuse, poor impulse control, male, limited support Lethality Ratin PTSD Checklist PTSD Done? patient declined ED Management Sitter: Yes Restraints: No DSM5/PS Stressors/Medical Prob Diagnosis' (DSM 5, Stressors, Medical): F31.4 Bipolar Disorder Depressed Severe, F10.20 Alcohol Use Disorder Severe, F14.20 Cocaine Use Disorder Moderate, F12.20 Cannabis Use Disorder Severe Current GAF: 14-18 Departure Disposition Psych Medical Clearance Date: 03/30/18 Medically Cleared at: 1358 Time Started: 1729 Time Ended: 2044 Psychiatrist Consulted: Ann Chen MD Date Disposition Established: 03/30/18 Time Disposition Established: 2044 Plan for Disposition - Modality: Inpatient Psychiatry Facility: [facility] Follow-up Appt Date: 03/30/18 Follow-Up Appt Time: 2199 Contact: CPS Telephone: [phone] Rationale for Disposition: Pt presents to the ED with suicidal ideation and a plan to overdose on medications. Pt was positive for ETOH, Cocaine and Marijuana last use was . Pt is at risk of suicide due to multiple substances use and is a danger to himself, pt meets criteria for inpatient admission. Type of IP Admission: Voluntary Referrals Mary PRIETO,Niko Mckeon (PCP/Family)
[2018-03-30] MEDS ORDERED: PROZAC20 M2 PO (19:47)
--- NOTE | 2018-03-30 20:56 | SOCIAL WORKER PROG NOTE PSYCH ---
Social Work Progress Note Progress Note Determination Status: APPROVED Member Name MAYO SÁCNHEZ Member 1980 Subscriber Name MAYO SÁNCHEZ Authorization # [id number] Client Authorization # [id number] Type of Request INITIAL Date of Admission/ Start of Services 03/30/2018 From - To 03/30/2018 - 04/01/2018 Submission Date 03/30/2018 Level of Service INPATIENT/HLOC Type of Service Mental Health Level of Care Inpatient Type of Care Inpatient Hospital - Inpatient [facility] A[facility] Provider Name & Address Provider ID Provider Alternate ID NPI # for Authorization JEFERSON SULLIVAN [address] [place] [id number]
--- NOTE | 2018-03-30 21:14 | IP CRISIS DIAG ASSESS PSYCH ---
Diagnostic Assessment Basic Assessment Insurance Authorization: Insurance #1: Insurance name: LYNETTE CASANOVA Phone number: Policy number: [id number] Group number: Authorization number: [id number] Client Authorization # [id number] Approved for 3 days from 03/30/18 to 04/01/18 Primary Care Physician: Patient's PCP: Niko Hernandez MD PCP's Patient's Quote: "I'm having thoughts to overdose on mymedications". Present Illness: Pt is a 37 year old single male brought to the Emergency Department by his friend today. Upon arrival pt requested ETOH detox. At present, pt reports he is having suicidal thoughts to overdose on his medications. Pt report he has been using Marijuana, Cocaine and Alcohol for the past couple of days. Currently he is experiencing withdrawal symptoms, he is "shaking, nausea and upset stomach ". Pt was alert and oriented x3. Pt reports he's feeling depressed and suicidal with a plan, he denies AH/VH. Pt states he hasn't been sleeping because he has not taken his medication Trazodone for the past 5 days as well as all his other psychotropic medications. Pt states he attempted suicidal January 17, 2018 by overdose on medicatiosn and he spent 4 weeks on the medical floor here at [facility]. Pt states he believes he is an addict because his primary problem is "all my drug use and drinking". Pt reports he recently completed substance abuse treatment at [facility] in [place] February 04 to March 07, 2018 and relapsed 2 days ago. Pt was active in treatment at [facility], he was admitted to [facility] on 03/17/18. Pt last attended group on 03/25/18. Also, pt was admitted to [facility] on the following dates this year: August 08, 2017, December 01, 2017, December 20, 2017 and January 30, 2018. Pt was discharged from [facility] with the following medications. Trazodone HCI 100mg, Divalproex Sodium 500 mg, Divalproex Sodium 250 mgs, Gabapentin 300mg, Fluoxetine HCI 20mg, Chlorpromazine HCI 25mg, Tricor 48mg. Pt's lab report showed that his Depakote level was low. Utox today was positive for Cocaine, Alcohol and Marijuana. Pt states that he has a history of sobriety for approximately 8 months and during this time he was positively supported by his attendance to AA/NA meetings and having a sponsor. Pt reports he has a history of Seizures when detoxing from Alcohol. Pt requested volunatary admission to [facility] for mental health treatment. Patient's Address: [address] [place] [address] Other M. Who Do You Live With? Patient/Self Feel Safe Where You Live? Yes Feel Safe in Your Relationship Yes Marital Status: single Do You Have Children? Yes Ages? 4 children, ages unknown Primary Language? Bulgarian Language(s) Spoken At Home: Bulgarian Family/Informants Interviewed: no family/collateral ID'd Allergies - Coded Allergies: cyclobenzaprine (TREMORS 08/07/17) bupropion (Mild, Increase in afshan, reported on a previous admission 08/07/17) Current Medications - Scheduled Medications Divalproex Sodium 500 MG TABLET. 2 TAB PO 2200 bipolar disorder #60 TAB Prescribed by Alverto Fleming MD on 02/04/18 Divalproex Sodium (Depakote) 250 MG TABLET. 3 TAB PO DAILY bipolar disorder #90 TAB Prescribed by Alverto Fleming MD on 02/04/18 Fenofibrate (Tricor) 48 MG TABLET 1 MG PO DAILY high triglycerides #30 TAB Prescribed by Alverto Fleming MD on 02/04/18 Fluoxetine HCl (Prozac) 20 MG CAPSULE 60 MG PO DAILY MENTAL HEALTH (Reported) Entered as Reported by Tyron Issa on 03/30/181946 Fluoxetine HCl 20 MG CAPSULE 3 CAP PO DAILY depression #90 CAP Prescribed by Alverto Fleming MD on 02/04/18 Folic Acid 1 MG TABLET 1 MG PO DAILY folate supplement #30 TAB Prescribed by Alverto Fleming MD on 02/04/18 Multivitamin (One Daily Multivitamin) 1 EACH TABLET 1 TAB PO DAILY vitamin supplement #30 TAB Prescribed by Alverto Fleming MD on 02/04/18 Olanzapine (Zyprexa Zydis) 10 MG TAB.RAPDIS 2 TAB PO 2200 Bipolar disorder #60 TAB Prescribed by Alverto Fleming MD on 02/04/18 Thiamine HCl (Vitamin B-1) 100 MG TABLET 1 TAB PO DAILY thiamine supplement # 30 TAB Prescribed by Alverto Fleming MD on 02/04/18 Trazodone HCl 100 MG TABLET 1 TAB PO QPM SLEEP HELP #30 TAB Prescribed by Alverto Fleming MD on 02/04/18 Scheduled PRN Medications Chlorpromazine HCl 25 MG TABLET 3 TAB PO Q6P PRN off-label for anxty/agitation #270 TAB Prescribed by Alverto Fleming MD on 02/04/18 Gabapentin 300 MG CAPSULE 2 CAP PO Q6P PRN OFF-LABEL FOR ANXIETY #180 CAP Prescribed by Alverto Fleming MD on 02/04/18 Nicotine (Nicorelief) 2 MG GUM 1 GUM PO Q2P PRN nitoine craving #100 GUM Prescribed by Alverto Fleming MD on 02/04/18 Consequences of Psych Med Use: Pt discontinued mediation use Pt combined medications with marijuana use. Currently pt's Depakote level is low Lab Results: Laboratory Tests 03/30/18 1305: Anion Gap 10, Estimated GFR > 60, BUN/Creatinine Ratio 8.0, Glucose 91, Calcium 9.3, Magnesium 2.0, Total Bilirubin 0.8, AST 26, ALT 42, Alkaline Phosphatase 70 , Troponin I < 0.01, Total Protein 6.6, Albumin 4.1, Globulin 2.5, Albumin/ Globulin Ratio 1.6, CBC w Diff NO MAN DIFF REQ, RBC 5.03, MCV 90.2, MCH 31.5 H, MCHC 34.9, RDW 12.9, MPV 6.2 L, Gran % 66.7, Lymphocytes % 26.2, Monocytes % 5.9, Eosinophils % 0.8, Basophils % 0.4, Absolute Granulocytes 2.9, Absolute Lymphocytes 1.1 L, Absolute Monocytes 0.3, Absolute Eosinophils 0, Absolute Basophils 0, Valproic Acid < 10.0 L, Serum Alcohol 22.0 03/30/18 1244: Urine Opiates Screen < 100, Methadone Screen < 40, Barbiturate Screen < 60, Ur Phencyclidine Scrn < 6.00, Amphetamines Screen 222, U Benzodiazepines Scrn < 85, Urine Cocaine Screen > 1000 H, Urine Cannabis Screen > 80.00 H Toxicology Screen Completed? Yes Results: positive Symptoms of Use: Suicidal ideation with plan Substance abuse Past History Past Medical History Medical History: Hypertension, Herniated disc and knee pain Past Surgical History Surgical History hernia Repair, knee surgery; L meniscal tear umbilical herniorraphy Abuse/Trauma History Trauma History/Current Trauma: Denies Abuse/Trauma Treatment: He denies any trauma or abuse hx. and then stated possible emotional abuse. Legal History Current Legal Status: none Have you ever been arrested? 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 Complete [facility] Rehab @ [facility] 2017 He appears to have good insight into his need for treatment and is willing to attend. Physical Limitations (Interventions): None noted Psychiatric Treatment History Psych Treatment Psychiatric Treatment Yes Inpatient Treatment Yes Outpatient Treatment Yes Location of Treatment [facility], [facility], [facility] Reason for Treatment SI, Substance Abuse Dates of Treatment February, Response to Treatment Relapse Diagnosis by History: By Hx. 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 Hypertension Benzodiazepine (clonazepam) dependence (temporarily prescribed until Paxil dosing is optimized) Risk Factors: high anxiety/distress, history of suicide atmpts, SA/MH hospitalized, substance abuse, poor impulse control, male, limited support Substance Use/Abuse History Drug Use/Abuse minimum 12mo Hx Substances Used/Abused Yes Substance Used/Abused Crack Cocaine First Use Age 14 Last Used 03/30/18 How much used/taken Unknown How often Daily For how long Couple of Days Route of use Smoke Substance Abuse Treatment Substance Abuse Treatment Past Substance Abuse TX Yes Inpatient Treatment Yes Outpatient Treatment Yes Location of Treatment [facility], [facility] Reason for Treatment Cocaine, Alcohol, Marijuana Dates of Treatment January,February 2018 Response to Treatment Relapse Sexual History Sexually Active No # of partners 0 Sexual Orientation Heterosexual Use of Protection No Sexual Concerns: None noted Education History Highest Level of Education: high school/GED Preferred Learning Style: experiential Current Mental Status Mental Status Orientation: Person, Place, Situation Affect: Anxious, Depressed Speech: Soft Neuro-vegetative: Concentration Poor, Helpless, Sleep Disturbance Appearance Appearance- Dress/Hygiene: Disheveled unkempt, poor hygiene, long hair ponytail. Behaviors Thought Process: WNL Thought Content: WNL Memory: WNL Insight: Fair SI/HI Risk Assessment - Minimum 6mo History- Past Suicidal Ideation/Attempts Yes Current Suicidal Ideation/Att Yes Past Homicidal Ideation/Att: No Current Homicidal Ideation/Attempts No Degree of Intent: Plan, States Intent Danger To: Self Risk Factors: high anxiety/distress, history of suicide atmpts, SA/MH hospitalized, substance abuse, poor impulse control, male, limited support Lethality Ratin Needs/Init TX Plan/Goals: Monitor for safety Individual and group therapy Medication evaluation Diagnostic evaluation Case management and discharge planning AUDIT-C Questionnaire: AUDIT-C Questionnaire: Response Value ETOH use in the past year 4 or more per week 4 # drinks typical/day 5 or 6 2 6 or > drinks per occasion Daily/Almost Daily 4 Total 10 DSM5/PS Stressors/Medical Prob Diagnosis' (DSM 5, Stressors, Medical): F31.4 Bipolar Disorder Depressed Severe, F10.20 Alcohol Use Disorder Severe, F14.20 Cocaine Use Disorder Moderate, F12.20 Cannabis Use Disorder Severe Current GAF: 14-18
[2018-03-30 21:15] VITALS: BP 130/70
[2018-03-30 22:12] VITALS: BP 141/95
--- NOTE | 2018-03-31 01:07 | History & Physical ---
General Information and HPI MD Statement: I have seen and personally examined MAYO SÁNCHEZ and documented this H&P. The patient is a 37 year old M who was admitted for the treatment of alcohol use disorder and suidication ideation. Source of Information: patient History of Present Illness: The patient is a 37 year old M who was admitted for the treatment of alcohol use disorder and suidication ideation. Medical consult is called for medical comanagement. Had suicidal thoughts of killing himself by ingesting all of his medications,. He admits that he has a history of hyperlipidemia and was taking statin intermittently. He has a history of high blood pressure problem but does not take any medications. He has a family doctor but he does not follow with him regularly. Patient says that he drinks alcohol daily.. Patient says that he drinks 2 beers of alcohol dailyand his last drink was 4 AM yesterday. He also smokes 1 pack cigarettes daily. He admits taking cocaine as well. His last use of cocaine was on Friday. Patient denies any chest pain, palpitations, shortness of breath, nausea vomiting or abdominal pain. Denies any anxiety, denies any active suicidal thoughts at this moment. Allergies/Medications Allergies: Coded Allergies: cyclobenzaprine (TREMORS 08/07/17) bupropion (Mild, Increase in afshan, reported on a previous admission 08/07/17) Home Med list Chlorpromazine HCl 25 MG TABLET 3 TAB PO Q6P PRN off-label for anxty/agitation Divalproex Sodium 500 MG TABLET. 2 TAB PO 2199 bipolar disorder Divalproex Sodium (Depakote) 250 MG TABLET.DR 3 TAB PO DAILY bipolar disorder Fenofibrate (Tricor) 48 MG TABLET 1 MG PO DAILY high triglycerides Fluoxetine HCl (Prozac) 20 MG CAPSULE 60 MG PO DAILY MENTAL HEALTH (Reported) Fluoxetine HCl 20 MG CAPSULE 3 CAP PO DAILY depression Folic Acid 1 MG TABLET 1 MG PO DAILY folate supplement Gabapentin 300 MG CAPSULE 2 CAP PO Q6P PRN OFF-LABEL FOR ANXIETY Multivitamin (One Daily Multivitamin) 1 EACH TABLET 1 TAB PO DAILY vitamin supplement Nicotine (Nicorelief) 2 MG GUM 1 GUM PO Q2P PRN nitoine craving Olanzapine (Zyprexa Zydis) 10 MG TAB.RAPDIS 2 TAB PO 2199 Bipolar disorder Thiamine HCl (Vitamin B-1) 100 MG TABLET 1 TAB PO DAILY thiamine supplement Trazodone HCl 100 MG TABLET 1 TAB PO QPM SLEEP HELP Compliance With Home Meds: POOR Past History Travel History Traveled to [place] past 21 day No Medical History Neurological: delerium tremens, restless leg syndrome, ETOH withdrawal seizures EENT: NONE Cardiovascular: hypertension, hyperlipidemia Respiratory: NONE Gastrointestinal: NONE Hepatic: NONE Renal: NONE Musculoskeletal: Left knee meniscal tear Psychiatric: alcohol dependence, anxiety, bipolar disease, depression, insomnia, substance abuse, Suicidal ideation, overdose suicide attempt X 15 Endocrine: NONE Blood Disorders: NONE Cancer(s): NONE 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 Home Who Do You Live With? self Services at Home: None Primary Language: Nauruan ETOH Use: alcoholic Illicit Drug Use: cocaine Functional Ability ADLs Independent: dressing, eating, toileting, bathing. Ambulation: independent IADLs Independent: shopping, housework, finances, food prep, telephone, transportation , medication admin. Review of Systems Review of Systems Constitutional: Denies: no symptoms. EENTM: Denies: no symptoms. Cardiovascular: Denies: no symptoms. Respiratory: Denies: no symptoms. GI: Denies: no symptoms. Genitourinary: Denies: no symptoms. Musculoskeletal: Denies: no symptoms. Skin: Denies: no symptoms. Neurological/Psychological: Reports: other (alcohol withdrawal seizures). Exam & Diagnostic Data Last 24 Hrs of Vital Signs/I&O Vital Signs Date Time Temp Pulse Resp B/P B/P Pulse O2 O2 Flow FiO2 Mean Ox Delivery Rate 03/30 2212 98.4 78 141/95 03/30 2115 98.6 66 18 130/70 03/30 2115 98.6 66 18 130/70 95 Room Air 03/30 1915 98.6 95 18 132/80 95 Room Air 03/30 1730 98.1 80 16 138/78 99 Room Air Room Air 03/30 1322 98 Room Air 03/30 1316 98.6 111 18 177/93 03/30 1200 98.6 111 18 177/93 98 Room Air Intake & Output 03/31 0800 03/31 0000 03/30 1600 Intake Total 0 Output Total Balance 0 Intake, IV 0 Patient 240 lb 240 lb Weight Weight Reported by Patient Measurement Method Physical Exam General Appearance Alert, Oriented X3, Cooperative, No Acute Distress, Mild Distress Skin No Rashes, No Breakdown HEENT Atraumatic, PERRLA, EOMI Neck Supple, No JVD Cardiovascular Regular Rate, Normal S1, Normal S2 Lungs Clear to Auscultation, Normal Air Movement Abdomen Soft, No Tenderness Neurological Exam Findings: Normal Gait, Normal Speech, Strength at 5/5 X4 Ext Cranial Nerves II through XII: normal. Extremities No Edema, Normal Pulses Vascular Normal Pulses Assessment/Plan Assessment: A/p: #Suicidal ideation: Patient has suicidal thought of killing himself by ingesting multiple medications. Patient was seen by psych and currently admitted to inpatient psych. Further management as per the psychiatric team. Patient Is on multiple psychiatric medications deferred to psych. #Polysubstance abuse: Into his alcohol dependent, uses cocaine and marijuana. Last used marijuana and cocaine on Friday as per the patient. With CIWA protocol, currently not in withdrawal, needs monitoring. Continue thiamine, folic acid. #Tobacco abuse: Continue with the nicotine patch. #Hyperlipidemia: Check lipids. Patient is on fenofibrate at home will continue that. #Hypertension: Patient is not on any medications. Monitor the blood pressure. If the blood pressure is elevated can consider Norvasc [address]Ravinder Fina MD. Hospitalist. Pager: [phone], cell: [phone]. As Ranked By This Provider Problem List: 1. Alcohol use disorder 2. Polysubstance abuse 3. Depression with suicidal ideation 4. Tobacco abuse 5. Cocaine abuse Miscellaneous Miscellaneous Documentation Attending Case Discussed With: Ann Chen MD Primary Care Physician: Niko Hernandez MD Patient sees these Specialists none Level of Patient Care: MARICARMEN Pathak
[2018-03-31 02:05] VITALS: BP 114/65
[2018-03-31 08:31] VITALS: BP 128/93
[2018-03-31 08:39] VITALS: BP 158/93
--- NOTE | 2018-03-31 10:39 | CPS PROVIDER INIT ASMT PSYCH ---
Psychiatric Admission Thread Tool Grinder Set Up Operator's Note Reviewed: Yes Patient Seen and Examined: Yes Identifying Information: Pt is a 37 year old single male brought to the Emergency Department by his friend Chief Complaint: "I'm having thoughts to overdose on my medications". Reaction to Hospitalization: Patient was admitted voluntarily History of Present Illness Onset of Illness: Patient has a very long-standing psychiatric illness as well as severe alcoholism. The patient recently completed substance abuse treatment program at [facility] in [place] he reported that he stayed one month from February 04 - March 07, 2018. Patient claims that he relapsed only 2 days prior to his presentation to our emergency room at [facility] Circumstances Leading to Admission: Pt is a 37 year old single male brought to the Emergency Department by his friend today. Upon arrival pt requested ETOH detox. At present, pt reports he is having suicidal thoughts to overdose on his medications. Pt report he has been using Marijuana, Cocaine and Alcohol for the past couple of days. Currently he is experiencing withdrawal symptoms, he is "shaking, nausea and upset stomach ". Pt was alert and oriented x3. Pt reports he's feeling depressed and suicidal with a plan, he denies AH/VH. Pt states he hasn't been sleeping because he has not taken his medication Trazodone for the past 5 days as well as all his other psychotropic medications. Pt states he attempted suicidal January 17, 2018 by overdose on medicatiosn and he spent 4 weeks on the medical floor here at [facility]. Pt states he believes he is an addict because his primary problem is "all my drug use and drinking". Pt reports he recently completed substance abuse treatment at [facility] in [place] February 04 to March 07, 2018 and relapsed 2 days ago. Pt was active in treatment at [facility], he was admitted to [facility] on 03/17/18. Pt last attended group on 03/25/18. Also, pt was admitted to [facility] on the following dates this year: August 08, 2017, December 01, 2017, December 20, 2017 and January 30, 2018. Pt was discharged from [facility] with the following medications. Trazodone HCI 100mg, Divalproex Sodium 500 mg, Divalproex Sodium 250 mgs, Gabapentin 300mg, Fluoxetine HCI 20mg, Chlorpromazine HCI 25mg, Tricor 48mg. Pt's lab report showed that his Depakote level was low. Utox today was positive for Cocaine, Alcohol and Marijuana. Pt states that he has a history of sobriety for approximately 8 months and during this time he was positively supported by his attendance to AA/NA meetings and having a sponsor. Pt reports he has a history of Seizures when detoxing from Alcohol. Pt requested volunatary admission to [facility] for mental health treatment. Problem(s) Justifying Need for Admission: He was thinking about overdosing. 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 He reportedly did rehabilitation program from February 04, 2018 to March 07, 2018 at [facility] in [place]. The patient has a lengthy psychiatric history with multiple psychiatric admissions as well as admissions to residential rehabilitation programs. Provide patient in outpatient level of care. This is his fourth admission to this facility this year. He has also been admitted to the hospital. He has a history of multiple suicide attempts. History of Suicide Attempts or Gestures History of multiple suicide attempts, the most recent 1 of them was pretty serious and he ended up in the ICU at [facility] in December 2017 Substance Abuse History: Very severe alcohol use disorder Stimulant (cocaine) use disorder Allergies: Coded Allergies: cyclobenzaprine (TREMORS 08/07/17) bupropion (Mild, Increase in afshan, reported on a previous admission 08/07/17) Home Med List: Divalproex Sodium 500 MG TABLET.DR 2 TAB PO 2199 bipolar disorder #60 TAB Prescribed by Alverto Fleming MD on 02/04/18 Divalproex Sodium (Depakote) 250 MG TABLET. 3 TAB PO DAILY bipolar disorder #90 TAB Prescribed by Alverto Fleming MD on 02/04/18 Fenofibrate (Tricor) 48 MG TABLET 1 MG PO DAILY high triglycerides #30 TAB Prescribed by Alverto Fleming MD on 02/04/18 Fluoxetine HCl (Prozac) 20 MG CAPSULE 60 MG PO DAILY MENTAL HEALTH (Reported) Entered as Reported by Tyron Issa on 03/30/181946 Fluoxetine HCl 20 MG CAPSULE 3 CAP PO DAILY depression #90 CAP Prescribed by Alverto Fleming MD on 02/04/18 Folic Acid 1 MG TABLET 1 MG PO DAILY folate supplement #30 TAB Prescribed by Alverto Fleming MD on 02/04/18 Multivitamin (One Daily Multivitamin) 1 EACH TABLET 1 TAB PO DAILY vitamin supplement #30 TAB Prescribed by Alverto Fleming MD on 02/04/18 Olanzapine (Zyprexa Zydis) 10 MG TAB.RAPDIS 2 TAB PO 2200 Bipolar disorder #60 TAB Prescribed by Alverto Fleming MD on 02/04/18 Thiamine HCl (Vitamin B-1) 100 MG TABLET 1 TAB PO DAILY thiamine supplement # 30 TAB Prescribed by Alverto Fleming MD on 02/04/18 Trazodone HCl 100 MG TABLET 1 TAB PO QPM SLEEP HELP #30 TAB Prescribed by Alverto Fleming MD on 02/04/18 Scheduled PRN Medications Chlorpromazine HCl 25 MG TABLET 3 TAB PO Q6P PRN off-label for anxty/agitation #270 TAB Prescribed by Alverto Fleming MD on 02/04/18 Gabapentin 300 MG CAPSULE 2 CAP PO Q6P PRN OFF-LABEL FOR ANXIETY #180 CAP Prescribed by Alverto Fleming MD on 02/04/18 Nicotine (Nicorelief) 2 MG GUM 1 GUM PO Q2P PRN nitoine craving - Include any medical condition(s) that may - impact the patient's recovery/remission Past History Medical History Neurological: delerium tremens, restless leg syndrome, ETOH withdrawal seizures EENT: NONE Cardiovascular: hypertension, hyperlipidemia Respiratory: NONE Gastrointestinal: NONE Hepatic: NONE Renal: NONE Musculoskeletal: Left knee meniscal tear Psychiatric: alcohol dependence, anxiety, bipolar disease, depression, insomnia, substance abuse, Suicidal ideation, overdose suicide attempt X 15 Endocrine: NONE Blood Disorders: NONE Cancer(s): NONE 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 Substance Use: Family history strongly positive for alcohol dependence. 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 - #1 Recognizing dangerous situations. - #2 Coping Skills. - #3 Basic information about quitting. Status of Tobacco Cessation Counseling: #1, #2 AND #3 Completed Cessation Med Status Nicotine Gum Ordered Alcohol Screening - ETOH screen POS if BAL >=80 or Audit-C>= M4/F3 Audit-C Score from Diag Assess: 10 Blood Alcohol Level: Laboratory Tests 03/30 1305 Toxicology Serum Alcohol (<10 MG/DL) 22.0 Alcohol Use Screening Results: Pos per Audit C &/or BAL - If ETOH counseling indicated - the following topics are required. - #1 Express concern about the patient's - drinking at unhealthy levels, include informing - of national norms for moderate drinking: - men <= 14 drinks/week, max 4 drinks/occasion - women <= 7 drinks/week, max 3 drinks/occasion - #2 Providing feedback, including linking alcohol to - negative physical effects (liver injury, hypertension) - negative emotional effects (relationship problems and - depression) - negative occupational consequences (reduced work - performance) - #3 Advising the patient to abstain from alcohol or - to drink below national norms for moderate drinking - (as listed above). Status of ETOH Use Counseling: #1, #2 AND #3 Completed. Metabolic Screening - Screen if on a Neuroleptic Medication - Metabolic screening should include: - Blood Pressure, BMI, Glucose or Hgb A1c, & a - Lipid profile from within the past 365 days. Metabolic Screening Patient on a neuroleptic(s) . Enter below results for Hemoglobin A1C, and lipid panel if obtained during the last 365 days. BMI: 30.800 Blood Pressure: 158/93 Laboratory Results From [facility] (If applicable): Lab Cholesterol 231 MG/DL H 03/31/18 0653 Cholesterol/HDL Ratio 5 % H 03/31/18 0653 HDL Cholesterol 42 mg/dL 03/31/18 0653 Hemoglobin A1c 5.0 % 02/03/18 0645 LDL Cholesterol Direct 114.29 mg/dL H 02/03/18 0645 LDL Cholesterol, Calc 154 mg/dL H 03/31/18 0653 Triglycerides 177 mg/dL H 03/31/18 0653 Exam and Plan Mental Status Examination Ambulation Status: Steady gait Appearance: Unremarkable appearance Attitude towards examiner: Calm and cooperative Psychomotor activity: Reduced psychomotor activity Behavior: No abnormal behaviors Quality of speech: Reduced speech, not pressured Affect: Constricted affect Mood: Depressed Suicidal Ideation: Endorse thoughts of suicide. Homicidal Ideation: Denied violent thoughts or thoughts of homicide Hallucinations: Denied hallucinations Paranoid/Delusional Material: Denies feeling paranoid, there were no delusions during the interview Difficulties with thought organization: He was coherent, no formal thought disorder Insight: Partial insight Judgment: Questionable judgment Orientation: Alert and oriented to time and place and person Cognition: Did not seem to have difficulty with information processing Memory Function: No short-term memory deficits Estimate of intellectual functioning: Average Assets/Strengths Patient Identified Assets/Strengths: The patient is intelligent, talented, and resourceful Impression/Plan Impression and Plan: 37-year-old white male who is very well known to the inpatient psychiatric unit at [facility] from numerous admissions mostly for suicidal thinking in the context of relapsing to alcohol. This was a very similar presentation - Include all active medical diagnosis that require tx DSM 5 Diagnosis(es): Unspecified bipolar disorder Alcohol use disorder severe Stimulants [cocaine] use disorder severe Cluster B personality traits - Initial Tx Plan for Active Psych & Medical Conditions Treatment Plan: Inpatient psychiatric care with safety checks every 15 minutes and Alcohol detoxification protocol Continue same medications as per previous discharge - Factors that would help patient function - in a less restrictive setting. Factors: Patient would be discharge after 2 consecutive days without thoughts of suicide
--- NOTE | 2018-03-31 11:36 | SOCIAL WORKER SOCIAL HX PSYCH ---
Social History Basic Assessment Insurance Authorization: Insurance #1: Insurance name: LYNETTE [employer] Phone number: Policy number: [id number] Group number: Authorization number: Curr Source of Income/Entitlements: basic needs, employment Primary Care Physician: Patient's PCP: Niko Hernandez MD PCP's Present Problem: atient's Quote: "I'm having thoughts to overdose on mymedications". Present Illness: Pt is a 37 year old single male brought to the Emergency Department by his friend today. Upon arrival pt requested ETOH detox. At present, pt reports he is having suicidal thoughts to overdose on his medications. Pt report he has been using Marijuana, Cocaine and Alcohol for the past couple of days. Currently he is experiencing withdrawal symptoms, he is "shaking, nausea and upset stomach ". Pt was alert and oriented x3. Pt reports he's feeling depressed and suicidal with a plan, he denies AH/VH. Pt states he hasn't been sleeping because he has not taken his medication Trazodone for the past 5 days as well as all his other psychotropic medications. Pt states he attempted suicidal January 17, 2018 by overdose on medicatiosn and he spent 4 weeks on the medical floor here at [facility]. Pt states he believes he is an addict because his primary problem is "all my drug use and drinking". Pt reports he recently completed substance abuse treatment at [facility] in [place] February 04 to March 07, 2018 and relapsed 2 days ago. Primary Language? Russian Language(s) Spoken At Home: Russian Living Situation Other Living Arrangement: housing voucher Feel Safe Where You Are Living Yes Feel Safe in Relationships? Yes Allergies - Coded Allergies: cyclobenzaprine (TREMORS 08/07/17) bupropion (Mild, Increase in afshan, reported on a previous admission 08/07/17) Current Medications - Scheduled Medications Divalproex Sodium 500 MG TABLET. 2 TAB PO 2200 bipolar disorder #60 TAB Prescribed by Alverto Fleming MD on 02/04/18 Divalproex Sodium (Depakote) 250 MG TABLET. 3 TAB PO DAILY bipolar disorder #90 TAB Prescribed by Alverto Fleming MD on 02/04/18 Fenofibrate (Tricor) 48 MG TABLET 1 MG PO DAILY high triglycerides #30 TAB Prescribed by Alverto Fleming MD on 02/04/18 Fluoxetine HCl (Prozac) 20 MG CAPSULE 60 MG PO DAILY MENTAL HEALTH (Reported) Entered as Reported by Tyron Issa on 03/30/181946 Fluoxetine HCl 20 MG CAPSULE 3 CAP PO DAILY depression #90 CAP Prescribed by Alverto Fleming MD on 02/04/18 Folic Acid 1 MG TABLET 1 MG PO DAILY folate supplement #30 TAB Prescribed by Alverto Fleming MD on 02/04/18 Multivitamin (One Daily Multivitamin) 1 EACH TABLET 1 TAB PO DAILY vitamin supplement #30 TAB Prescribed by Alverto Fleming MD on 02/04/18 Olanzapine (Zyprexa Zydis) 10 MG TAB.RAPDIS 2 TAB PO 2200 Bipolar disorder #60 TAB Prescribed by Alverto Fleming MD on 02/04/18 Thiamine HCl (Vitamin B-1) 100 MG TABLET 1 TAB PO DAILY thiamine supplement # 30 TAB Prescribed by Alverto Fleming MD on 02/04/18 Trazodone HCl 100 MG TABLET 1 TAB PO QPM SLEEP HELP #30 TAB Prescribed by Alverto Fleming MD on 02/04/18 Scheduled PRN Medications Chlorpromazine HCl 25 MG TABLET 3 TAB PO Q6P PRN off-label for anxty/agitation #270 TAB Prescribed by Alverto Fleming MD on 02/04/18 Gabapentin 300 MG CAPSULE 2 CAP PO Q6P PRN OFF-LABEL FOR ANXIETY #180 CAP Prescribed by Alverto Fleming MD on 02/04/18 Nicotine (Nicorelief) 2 MG GUM 1 GUM PO Q2P PRN nitoine craving #100 GUM Prescribed by Alverto Fleming MD on 02/04/18 Past History Past Medical History Neurological: delerium tremens, restless leg syndrome, ETOH withdrawal seizures EENT: NONE Cardiovascular: hypertension, hyperlipidemia Respiratory: NONE Gastrointestinal: NONE Hepatic: NONE Renal: NONE Musculoskeletal: Left knee meniscal tear Psychiatric: alcohol dependence, anxiety, bipolar disease, depression, insomnia, substance abuse, Suicidal ideation, overdose suicide attempt X 15 Endocrine: NONE Blood Disorders: NONE Cancer(s): NONE 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 Grew up in [place] and went to school there. H S grad States he did o k in school, with no major issues. Childhood Family Constellation: Mother, father, 3 brothers, 1 sister Grandparents and relatives lived on same street or nearby. Primary Childhood Caretakers: father, mother Family Life During Childhood: Patient described his childhood as chaotic. He states that there was a lot of yelling, and kids running around. He also notes that his parents' alcoholism had a detrimental effect on his upbringing. DCF Involvement? No Explain: He stated that DCF was called when both he and his brother were admitted to psychiatric hospitals within a short period of time. He stated that he believes DCF is called if two children from the same family are admitted for psych during a certain period of time. Mother's Age (Current/): 65 Relationship w/Mother: He stated that his relationship with his mother has not always been good, but that currently their relationship is very good. He states that his mother made ammends with him for ways that she acted in the past and that he too has made ammends with her for "being a difficult son". Father's Age (Current/): 66 Relationship w/Father: We have always gotten along. He stated that he did share with his father how his father's alcoholism affected him growing up. His father took responsibility and apologized which was very helpful for Martínez. Any Sibling(s)? Yes Sibling's Gender(s)/Age(s): male Sibling 1:, male Sibling 2:, male Sibling 3:, female Sibling 4: Relationship w/Sibling(s): Reports that his relationships are pretty good with his siblings. He says that in the past he has had some rough patches with his two older brothers due to their judgement of his addiction and MH problems. He says now that they are more understanding that he is "the one who got bit with the addiction bug". Relationship w/Friends: Has AA friends only; most past friends were drug-connected friends. He stated that once he stopped using, those friends disappeared. Family Psych/Sub Abuse/Add Hx: Alcoholism Mother - Depression, anxiety, alcohol use d/o Father - Alcohol use d/o Abuse/Trauma History Trauma History/Current Trauma: Denies Abuse/Trauma Treatment: He denies any trauma or abuse hx. and then stated possible emotional abuse. Legal History Legal Guardian/Address/Phone: N/A Current Legal Status: none Pending Court Dates: none Have you ever been arrested No Number of Arrests: 0 Hx of Juvenile Legal Charges? 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 Yes If Yes: misdemeanor, felony, Multiple charges, See above. List/Date Most Recent Lgl Chgs: 04/24/08- Arrest (larceny, violation of probation) 08/20/09- Arrest (violation of protective order) 08/17/10- Arrest (criminal violation of restraining order) Chgs/Dts/Incarcerations/Sentnc None pending per patient Civil Proceedings: None noted Domestic Relations Court: None noted Child Protective Serv Involvmnt Yes twice. Both times DCF was called for verbal arguments with ex-girlfriend or ex-. One time he brought his daugther to his ex-'s house as she stated that she needed help with something. WHen he arrived, she stated that she lied and that she just did not want him spending time with their daughter, though it was his scheduled night. He took his daughter from his and went to [facility], where the police arrested him after service. The second time was for an argument with his ex-girlfriend. His drinking played a factor during this time in some capacity. He stated that neither time was due to physical fighting, and that he has never hit a woman. 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 Complete correction Rehab @ [facility] 2018 He appears to have good insight into his need for treatment and is willing to attend. Weaknesses: substance use Physical Limitations (Interventions): None noted Last Physical: 2016 History of Seizures? No Last Seizure: unclear History of Blackouts? No Last Blackout: unk ADL Limitations: none [place]/Social/Peer Relations Only AA friends Meaningful Activities: Playing piano and singing Childhood Pentecostalism: Sabianism Current Voodoo Affiliation: Rastafari Is Spirituality Important to You? "Yes" Patient's Ethnicity: Russian (Kosovan), Slovenian, Ukrainian, "" Cultural/Ethnic Issues: No Are There Developmental Issues? No If Yes, Explain: Unknown Milestones Achieved: WNL Psychiatric Treatment History Psych Treatment Inpatient Treatment Yes Outpatient Treatment Yes Location of Treatment [facility] Reason for Treatment SI, Substance Abuse Dates of Treatment February, Response to Treatment Relapse Treatment of Prior Episodes: The patient has had multiple OP and IP treatment providers. Pt was discharged in October from [facility]. Pt has been to [facility] 2-3x before. Diagnosis: By Hx. 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 Hypertension Benzodiazepine (clonazepam) dependence (temporarily prescribed until Paxil dosing is optimized) Psychodynamic Issues: n/a Risk Factors: high anxiety/distress, history of suicide atmpts, SA/MH hospitalized, substance abuse, poor impulse control, male, limited support Substance Use/Abuse History Drug Use/Abuse:Min 12 mo hx 1 Substance Used/Abused Crack Cocaine First Use Age 14 Last Used 03/30/18 How much used/taken Unknown How often Daily For how long Couple of Days Route of use Smoke Drug Use/Abuse:Min 12 mo hx 2 Substance Used/Abused Alcohol First Use 14 Last Used 2 days ago How much used/taken 5th How often frequent For how long off/on 20 years Route of use p.o. Have Had Periods of Sobriety? Yes Explain: REHABS A A Relapse History? Yes Have You Ever Attended AA? Yes Do You Attend AA Currently? Yes Do You Have a Sponsor? Yes Other Community Resources Used: [facility] Symptoms of Use: Suicidal ideation with plan Substance abuse Substance Abuse Treatment Substance Abuse Treatment Inpatient Treatment Yes Outpatient Treatment Yes Location of Treatment [facility] Reason for Treatment Cocaine, Alcohol, Marijuana Dates of Treatment January,February 2018 Response to Treatment Relapse Sexual History Sexually Active No # of partners 0 Sexual Orientation Heterosexual Use of Protection No Sexual Concerns: None noted Education History Highest Level of Education: high school/GED Highest Grade Completed: 12th Vocational Year Completed: N/A Number of College Years: 0 College Degree/Major: N/A Other Degree(s): N/A Preferred Learning Style: experiential HX of Learning Difficulties: None reported Barriers to Learning: None reported Special Communication Needs: None reported Employment History Not in Labor Force: 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 It is mainly during the warmer months but he states that they also do jobs in the winter on a lesser scale. 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 He says that he is a hard worker, but that sometimes his attendance was poor at these various jobs History Have You Been in The ? 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 Type of Discharge: Other than honorable Date of Discharge: 1998 Current Mental Status Mental Status Orientation: Person, Place, Situation Affect: Anxious, Depressed Speech: Soft Neuro-vegetative: Concentration Poor, Helpless, Sleep Disturbance Appearance Appearance- Dress/Hygiene: Disheveled unkempt, poor hygiene, long hair ponytail. Behaviors Thought Process: WNL Thought Content: WNL Memory: WNL Insight: Fair SI/HI Risk Assessment Past Suicidal Ideation/Attempts Yes Current Suicidal Ideation/Att Yes Past Homicidal Ideation/Att: No Current Homicidal Ideation/Attempts No Degree of Intent: Plan, States Intent Danger To: Self Lethality Ratin - Conclusion and Recommendations for treatment - and discharge planning
[2018-03-31 15:43] VITALS: BP 157/86
--- NOTE | 2018-03-31 17:25 | SOCIAL WORKER PROG NOTE PSYCH ---
Social Work Progress Note Progress Note Martínez has been in bed most of the day. I attempted to wake him this afternoon. He did not respond and continued sleeping.
[2018-03-31 19:28] VITALS: BP 147/77
[2018-03-31 19:48] VITALS: BP 147/77
[2018-04-01 07:57] VITALS: BP 140/98
--- NOTE | 2018-04-01 07:57 | CP SOUTH PROGRESS NOTE PSYCH ---
Psych (Inpt) Progress Note Progress Note Vital Signs Date Time Temp Pulse B/P B/P Pulse O2 FiO2 04/01 08 96.9 88 140/98 04/01 0757 96.9 88 140/98 03/31 194 98.6 76 147/77 03/31 1928 98.6 76 14777 03/31 1543 74 157/86 Mental Status Examination Reported that he was having upset stomach: nausea, cramping, and loose stools. He also reported feeling shaky and he looked flushed with slightly dilated pupils. He did show some fine tremor. His gait was steady, he was calm and cooperative. His speech was normal, not pressured, not slurred. He showed a mild increase in psychomotor activity today. No abnormal behaviors, reduced speech, not pressured Constricted affect, depressed Martínez denied suicidal Ideation today, he denied violent thoughts or thoughts of homicide. He denied hallucinations, he denies feeling paranoid, there were no delusions during the interview. He was coherent, no formal thought disorder. Alert and oriented to time and place and person. Did not seem to have difficulty with information processing. No short-term memory deficits Assessment: Martínez is a 37-year-old white male who is very well known to the inpatient psychiatric unit at [facility] from numerous admissions mostly for suicidal thinking in the context of relapsing to alcohol. This was a very similar presentation. Since his admission to the inpatient psychiatric unit on 03/30/2018: The patient showed moderate withdrawal symptoms, today was the first day he denied he denies thoughts of suicide Diagnoses): Unspecified bipolar disorder Alcohol use disorder severe Stimulants [cocaine] use disorder severe Cluster B personality traits Treatment Plan Update: Imodium 4 mg once now Bentyl 40 mg once now Zofran 4 mg once Librium 25 mg once Continue Alcohol detoxification protocol Continue other medications as follows: Current Medications Divalproex Sodium 500 MG DAILY 03/31 900 AC 04/01 Fenofibrate 48 MG DAILY 03/31 900 AC 04/01 Fluoxetine HCl 20 MG DAILY 03/31 900 AC 04/01 Folic Acid 1 MG DAILY 03/31 900 AC 04/01 Gabapentin 400 MG Q8 PRN 03/30 2200 AC 04/01 Lorazepam 1 MG FOUR TIMES A DAY 04/01 1400 UNVr Lorazepam 1 MG ONE ONE 04/01 1015 AC 04/01 Multivitamins 1 TAB DAILY 03/31 900 AC 04/01 Nicotine 4 MG Q2 HRS NEEDED PRN 03/31 1245 AC 04/01 Olanzapine 10 MG AT BEDTIME 03/31 2100 AC 03/31 Thiamine HCl 100 MG DAILY 03/31 900 AC 04/01
[2018-04-01 08:22] VITALS: BP 140/98
[2018-04-01 12:28] VITALS: BP 132/85
[2018-04-01 15:50] VITALS: BP 135/83
--- NOTE | 2018-04-01 17:52 | SOCIAL WORKER PROG NOTE PSYCH ---
Social Work Progress Note Progress Note Martínez has been tired and not feeling that well today. He told me since his last admission to [facility] and discharge to [facility] rehab he had done well in the program. He relapsed though about a week and a half after leaving, due to starting work again. 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 He can't seem to handle the tempatation of having money in his hand, as it is a major trigger for him to use. He stated he gets home after work and starts relaxing on his porch and then starts thinking about using crack. He then does the right thing by calling someone for help. He talks to that person for a while, but after the call he continues to have the thoughts. He then calls someone else and has a conversation. After the call he still can't stop himself from moving forward with buying the drug. I asked if things would be different if someone had said, "I'll come over." He said it definetely would help, but that's usually not the case. He basically stated that he feels like he needs someone to "babysit" him because he is not in control and can't seem to stop his though process and behaviors. He doesn't know what to do that would be helpful at this point and is resorting to the team's opinion on how to proceed. He has been drinking heavily for the past couple of weeks. He has also been using cocaine occasionally and marijuana a couple of times. He started having SI after getting into this pattern and not being able to stop. He thought about overdosing on his pills. He had a couple of suicidal thoughts today, but nothing he would act on in the hospital. He feels safe here. We talked about whether or not he would be willing to leave his apartment as he has said in the past that there is a drug dealer right next store. He said he is open to moving to [place] to be closer to his kids. He reported that the person next door to him is no longer selling drugs. His lease is up in May. Stated he only needs to find an apartment. Discussed the idea that working has not been helpful to him and that he ends up relapsing right away. Martínez is considering making his recovery his work at this point and applying for disability.
[2018-04-01 19:40] VITALS: BP 155/94
[2018-04-01 19:47] VITALS: BP 155/94
[2018-04-02 07:52] VITALS: BP 125/99
[2018-04-02 08:19] VITALS: BP 125/99
--- NOTE | 2018-04-02 09:59 | SOCIAL WORKER PROG NOTE PSYCH ---
Social Work Progress Note Progress Note MAYO SÁNCHEZ [id number] 1980 MAYO SÁNCHEZ [id number] Pended Authorization # Client Authorization # Type of Request [id number] CONCURRENT Date of Admission/ Start of Services Requested From Submission Date 03/30/2018 04/02/2018 04/02/2018
--- NOTE | 2018-04-02 11:07 | CP SOUTH PROGRESS NOTE PSYCH ---
Psych (Inpt) Progress Note Progress Note Vital Signs Date Time Temp Pulse B/P B/P 04/02 0819 96.4 71 125/99 04/02 0752 96.4 71 125/99 04/01 1947 99.1 86 155/94 04/01 1940 99.1 86 155/94 04/01 1550 98.0 84 135/83 The patient's progress, treatment plan, and aftercare plans were discussed in the treatment team meeting this morning. Team members included: LCSWs, RNs, Activities Therapist, and Psychiatrist. Mental Status Examination: Martínez reported that nausea and cramping dissipated but still having some loose stools. He was not tremulous today. He was not flushed and pupils were back to normal size. His gait was steady, he was calm and cooperative. His speech was normal, not pressured, not slurred. He showed normal psychomotor activity today. No abnormal behaviors. Affect seemed better. He is feeling depressed but denied wishing and denied thoughts of suicide. Martínez denied violent thoughts or thoughts of homicide. He denied hallucinations, he denied feeling paranoid, there were no delusions during the interview. He was coherent, no formal thought disorder. Alert and oriented to time and place and person. No short-term memory deficits Assessment: Martínez is a 37-year-old white male who was admitted to the inpatient psychiatric unit on 03/30/2018 for suicidal thinking in the context of relapsing to alcohol. This was a very similar presentation to numerous previous presentations. Today, 04/02/2018, Martínez is showing minimal withdrawal. Had to have Trazodone 100 mg at bedtime last night to sleep. Today is his second day of denying thoughts of suicide Diagnoses: Unspecified Bipolar disorder Alcohol use disorder severe Stimulants [cocaine] use disorder severe Cluster B personality traits Treatment Plan Update: D/C AKASH Change Ativan to Librium (total benzo dose for today will be 1mg Ativan + 75 mg Librium) Divalproex 500 mg DAILY Fluoxetine HCl 20 MG DAILY Increase Gabapentin to 800 mg [id number] Olanzapine 10 MG AT BEDTIME
--- NOTE | 2018-04-02 11:53 | SOCIAL WORKER PROG NOTE PSYCH ---
Social Work Progress Note Progress Note Met with Martínez this morning. He is doing a little better than yesterday. Still experiencing some withdrawal symptoms. Stated he has a headache and upset stomach. He reports no SI today. States he is attending groups today. Talked about how the team discussed his care and we think rehab is the way to go right now. I told him that I would like to explore a scholarship option with [facility] in [place]. He was in agreement for me to call their contact. Explored other options if he can't get a scholarship. He said he is open to going back to [facility] or [facility]. as well as other places possibly. Called Dalton Holbrook from [facility]. Shared information about Martínez and how we would be looking for a scholarship. Dalton didn't sound like it may be a possibility right now, but stated he would ask and ask other contacts if they may be willing to do a scholarship. Dalton left a message later stating he couldn't work anything out for Martínez. Martínez filled out the application for [facility] and [facility]. Clinical packet was faxed to both.
[2018-04-02 19:38] VITALS: BP 128/73
[2018-04-03 07:36] VITALS: BP 128/81
--- NOTE | 2018-04-03 09:08 | CP SOUTH PROGRESS NOTE PSYCH ---
Psych (Inpt) Progress Note Progress Note Martínez is a 37-year-old white male who was admitted to the inpatient psychiatric unit on 03/30/2018 for suicidal thinking in the context of relapsing to alcohol. This was a very similar presentation to numerous previous presentations. Diagnoses: Unspecified Bipolar disorder Alcohol use disorder severe Stimulants [cocaine] use disorder severe Cluster B personality traits Vital Signs Date Time Temp Pulse Resp B/P B/P Pulse O2 O2 Flow FiO2 04/03 0736 96.1 84 128/81 04/02 1938 98.3 79 128/73 The patient's progress, treatment plan, and aftercare plans were discussed in the treatment team meeting this morning. Team members included: LCSWs, RNs, Activities Therapist, and Psychiatrist. Mental Status Examination: Martínez denied nausea or vomiting today. He denied loose stools. He still has some abdominal cramping. He reported racing thoughts. He did report that the racing thoughts interfering with the quality of his sleep. He reported that his feeling anxious and he did feel a little bit flushed He was not tremulous today. He was not flushed and pupils were back to normal size. His gait was steady, he was calm and cooperative. His speech was normal, not pressured, not slurred. No abnormal behaviors. Affect seemed better. He is feeling depressed but denied wishing and denied thoughts of suicide. Martínez denied violent thoughts or thoughts of homicide. He denied hallucinations, he denied feeling paranoid, there were no delusions during the interview. He was coherent, alert, and oriented to time and place and person. No short-term memory deficits Treatment Plan Update: I discussed every single medication that Gustabo is taking. We discussed side effects, effectiveness of these medications, and alternatives and options. We agreed on the following plan: Increase Prozac to 40 mg daily starting tomorrow with the plan of going back to the target dose of 60 mg that he was taking before coming in. Reduce Depakote ER to just 250 mg with the plan of discontinuing it next week Increase olanzapine tonight to 15 mg and as of tomorrow morning 5 mg in the morning and 50 mg at bedtime Increase gabapentin as needed to 1200 mg every 6 hours to a maximum of 3 doses in 24 hours
--- NOTE | 2018-04-03 16:38 | SOCIAL WORKER PROG NOTE PSYCH ---
See Addendum Social Work Progress Note Progress Note Met with Martínez this afternoon. We met for quite awhile and processed feelings that he is struggling with around his children and his sobriety. His goal in life is to be there for his children and be a good Father to them. He has alot of guilt that he has not been that person. Talked about a particular incident more recently where he was with his 11 year old daughter for the day and he was drunk. He feels badly and sensed the disappointment in her by the end of the visit. We talked about how he would feel about apologizing to his daughter. He stated it would help him feel better. Encouraged him to reach out when he was ready. Also discussed his self harm behaviors in the past and his need to start working on tolerating upseting feelings. Turns to drugs and alcohol to self soothe.
[2018-04-03 19:52] VITALS: BP 177/99
[2018-04-03 21:57] VITALS: BP 148/87
[2018-04-04 08:18] VITALS: BP 137/71
--- NOTE | 2018-04-04 14:01 | CP SOUTH PROGRESS NOTE PSYCH ---
Psych (Inpt) Progress Note Progress Note Include the following elements, when applicable: Involvement in the active treatment of the patient with behavioral observations of the patient and the patient's response to the treatment. Review of the ongoing treatment process in the context of the treatment plan. Indication of how multi-disciplinary staff members are carrying out the treatment plan. Plans for future interventions and recommendations for revision of the treatment plan. Liaison with other physicians/providers. Progress Note: Dr. Evans's note reviewed. Medication list reviewed. Case discussed with nurse, who reports that the patient is denying suicidal ideation. Behaving well on the unit. Affect is appropriate and bright. Patient seen at 10:11 AM. States he is okay. He is pleased that he came to the hospital before making an attempt. Affect is calm and blunted to euthymic. Mood is good. Rates sad mood 3/10. Rates anxiety 0/10, having received Neurontin prior to meeting with me. Denies feeling hopeless, helpless, worthless or guilty. Denies active and passive suicidal ideation. Denies homicidal ideation. Denies auditory and visual hallucinations and paranoid ideation. Sleep and appetite are good. Energy is fair. Tolerating medications well, without complaint. Per Dr. Evans's note, I am adding olanzapine 5 mg every morning. IMPRESSION: Slow progress. Continue present treatment plan.
[2018-04-04 19:54] VITALS: BP 142/92
[2018-04-05 07:53] VITALS: BP 133/75
--- NOTE | 2018-04-05 15:02 | CP SOUTH PROGRESS NOTE PSYCH ---
Psych (Inpt) Progress Note Progress Note Include the following elements, when applicable: Involvement in the active treatment of the patient with behavioral observations of the patient and the patient's response to the treatment. Review of the ongoing treatment process in the context of the treatment plan. Indication of how multi-disciplinary staff members are carrying out the treatment plan. Plans for future interventions and recommendations for revision of the treatment plan. Liaison with other physicians/providers. Progress Note: Case and treatment plan discussed with nurse, who reports that the patient is denying suicidal ideation. Behaving well on the unit. Not depressed or too high. Patient seen 11:03 AM. States he is all right. Has no complaints. Reports he is sleeping well, eating well and is feeling better. Affect is calm and euthymic. Reports his [id number] is a drug and alcohol counselor and is looking into a 1-year rehab placement for the patient in [place] on a scholarship. Mood is good. Rates sad mood 0/10 and anxiety 4/10. Denies feeling hopeless, helpless, worthless or guilty. Denies active and passive suicidal ideation. Denies homicidal ideation. Denies auditory and visual hallucinations and paranoid ideation. Reports energy is okay. Tolerating medications well, without complaint. IMPRESSION: Slow progress. Continue present treatment plan.
[2018-04-05 20:00] VITALS: BP 138/79
[2018-04-06 07:27] VITALS: BP 132/72
--- NOTE | 2018-04-06 08:14 | CP SOUTH PROGRESS NOTE PSYCH ---
Psych (Inpt) Progress Note Progress Note I reviewed the notes of Dr. Fleming over the weekend (04/04 and 04/05/2018). The patient's progress, treatment plan, and aftercare plans were discussed in the treatment team meeting this morning. Team members included: LCSWs, RNs, Activities Therapist, and Psychiatrist. Vital Signs Date Time Temp Pulse Resp B/P B/P Pulse O2 O2 Flow FiO2 Mean Ox Delivery Rate 04/06 727 96.5 74 132/72 04/05 2000 97.8 84 138/79 Mental Status Examination: Martínez denied racing thoughts. He reported feeling anxious (with some decline in severity). His gait was steady, he was calm and cooperative. His speech was normal, not pressured, not slurred. No abnormal behaviors. Affect seemed better. He is feeling depressed but denied wishing and denied thoughts of suicide. Martínez denied violent thoughts or thoughts of homicide. He denied hallucinations, he denied feeling paranoid, there were no delusions during the interview. He was coherent, alert, and oriented to time and place and person. No short-term memory deficits Treatment Plan Update: I discussed every single medication that Gustabo is taking. We discussed side effects, effectiveness of these medications, and alternatives and options. We agreed on the following plan: Increase Prozac to 60 mg daily starting tomorrow D/C Depakote ER olanzapine 5 mg in AM and 15 mg QHS gabapentin as needed 1200 mg every 6 hours to a maximum of 3 doses in 24 hours Increase gabapentin as needed to 1200 mg every 6 hours to a maximum of 3 doses in 24 hours
--- NOTE | 2018-04-06 16:50 | SOCIAL WORKER PROG NOTE PSYCH ---
Social Work Progress Note Progress Note Martínez shared with Yennifer Joy (community health worker) that he was not able to go to [facility] because of his mental health and suicidality in the past. He has been turned down from there before. Chose not to be referred there again. Waiting to hear about a scholarship bed possibly at [facility] in [place]. Martínez was in bed sleeping late this afternoon. He barely opened his eyes to talk. He said things were going ok. He is also talking about his Sister's or boyfriend getting him a scholarship at a [facility] in [place].
[2018-04-06 19:52] VITALS: BP 139/73
[2018-04-07 08:08] VITALS: BP 135/79
--- NOTE | 2018-04-07 09:11 | CP SOUTH PROGRESS NOTE PSYCH ---
Psych (Inpt) Progress Note Progress Note The patient's progress, treatment plan, and aftercare plans were discussed in the treatment team meeting this morning. Team members included: LCSWs, RNs, Activities Therapist, and Psychiatrist. Vital Signs: Date Time Temp Pulse B/P B/P Pulse O2 FiO2 04/07 808 95.7 70 135/79 04/06 1952 98.5 85 139/73 Mental Status: Martínez was dressed in regular clothes. He reported "good" mood and denied racing thoughts. He reported feeling less anxious and motivated for rehab. His gait was steady, he was calm and cooperative. His speech was normal (not pressured, not slurred). No abnormal behaviors. He denied wishing and denied thoughts of suicide. Martínez denied violent thoughts or thoughts of homicide. He denied hallucinations, he denied feeling paranoid, there were no delusions during the interview. He was coherent, alert, and oriented to time and place and person. No short-term memory deficits Treatment Plan Update: I discussed medications with Gustabo including side effects, effectiveness of these medications, and alternatives and options. We agreed on the following plan: Reduce Librium to 25 mg Q2Pm and 25 mg at bedtime Continue Prozac 60 mg daily olanzapine 5 mg in AM and 15 mg QHS gabapentin as needed 1200 mg every 6 hours to a maximum of 3 doses in 24 hours DICTATED BY: Barry Lozano MD DATE/TIME DICTATED:04/06/18812
--- NOTE | 2018-04-07 17:29 | SOCIAL WORKER PROG NOTE PSYCH ---
Social Work Progress Note Progress Note Martínez was resting in bed around 4:30pm. Got up when prompted to meet. He feels his mood is stable. Reported feeling okay with being in the hospital and waiting placement to rehab. He said he had talked with his Mom on Friday and shared everything that is going on. He has not spoken with his children at this time and is waiting to do so, once he knows where he is going. Reported Brother Abilio is attempting to get him a bed at a half-way program in [place]. He reports this is a year long program. I asked about his apartment as in the past he hasn't wanted to leave for more than 6 months? He said he is ready to give up his apartment and do what is necessary for his recovery. He doesn't feel that keeping it is helping him. This is a big decision for Martínez. He continues to say he is ready to make a change in his life. Shared that he hasn't been talking/ sharing too much in group. We talked about why. He said he feels he has repeated himself so many times and doesn't know what to say anymore. Finds it difficult to talk about his emotions. Screening with [facility] is scheduled for 9am tomorrow morning.
[2018-04-07 20:15] VITALS: BP 149/74
[2018-04-08 07:51] VITALS: BP 140/64
--- NOTE | 2018-04-08 08:07 | CP SOUTH PROGRESS NOTE PSYCH ---
Psych (Inpt) Progress Note Progress Note The patient's progress, treatment plan, and aftercare plans were discussed in the treatment team meeting this morning. Team members included: LCSWs, RNs, Activities Therapist, and Psychiatrist. Vital Signs: Vital Signs Date Time Temp Pulse B/P 04/08 0751 96.4 71 140/64 04/07 2015 97.7 82 149/74 Mental Status: Martínez was alert and oriented to time, place, and person. He reported that his mood is "good." He denied racing thoughts. He reported feeling less anxious and motivated for rehab. He was calm and cooperative. His speech was normal (not pressured, not slurred). There were no abnormal behaviors. He denied wishing and denied thoughts of suicide. Martínez denied violent thoughts or thoughts of homicide. He denied hallucinations, he denied feeling paranoid, there were no delusions during the interview. He was coherent, no short-term memory deficits Treatment Plan Update: Reduce Librium to 25 mg once daily at 2:00 p.m. Continue Prozac 60 mg daily Continue olanzapine 5 mg in AM and 15 mg QHS Continue gabapentin as needed 1200 mg every 6 hours to a maximum of 3 doses in 24 hours
--- NOTE | 2018-04-08 15:02 | SOCIAL WORKER PROG NOTE PSYCH ---
Yennifer Joy 04/08/18 1451: Social Work Progress Note Progress Note Psychiatric Community Health Worker Note on behalf of Amanda Peoples LCSW Pt completed a phone screening today (04.08.18 at approximately 9:15am) w/Case from [facility] ([phone]). Per Case, Martínez is on the waitlist for bed availablity on 05.04.18. Pt has been notified to call Case at least 2-3 times/wk (or as much as resources would allow) to check for sooner bed availibility prior to 05.04.18 as bed availbility may change. Contact information has been provided to pt to contact Case. Faxed referral to [facility] ([phone]). Per [facility] follow up on 04.09.18 to discuss referral. Yennifer "Elizabeth" Rufino Psychiatric Community Health Worker Sofi Smith 04/10/18 1842: Social Work Progress Note Progress Note This patient belongs to Amanda Peoples LCSW and has been sent to her for a co-sign.
--- NOTE | 2018-04-08 17:25 | SOCIAL WORKER PROG NOTE PSYCH ---
Social Work Progress Note Progress Note Martínez was in bed napping at 5pm. Approached him in his room to talk. He woke up, but seemed sleepy. Stated didn't have anything to talk with me about specifically. He shared that he was waiting to get the woman's contact information from the program in [place] and should get that from [facility]. He said his day was good. He is hoping to get her number so that we can talk to her directly.
[2018-04-08 19:52] VITALS: BP 151/74
[2018-04-09 08:01] VITALS: BP 145/81
--- NOTE | 2018-04-09 10:22 | SOCIAL WORKER PROG NOTE PSYCH ---
Social Work Progress Note Progress Note MAYO SÁNCHEZ [id number] 1980 MAYO SÁNCHEZ [id number] Pended Authorization # Client Authorization # Type of Request [id number] CONCURRENT Date of Admission/ Start of Services Requested From Submission Date 03/30/2018 04/09/2018 04/09/2018
--- NOTE | 2018-04-09 12:55 | CP SOUTH PROGRESS NOTE PSYCH ---
Psych (Inpt) Progress Note Progress Note The patient's progress, treatment plan, and aftercare plans were discussed in the treatment team meeting this morning. Team members included: LCSWs, RNs, OTR/ L, Activities Therapist, and Psychiatrist. Vital Signs: Date Time Temp Pulse B/P B/P Pulse O2 FiO2 04/09 0801 97.7 83 145/81 04/08 1952 97.8 96 151/74 Mental Status: Martínez was calm and cooperative. His speech was normal (not pressured, not slurred). He was alert and oriented to time, place, and person. He reported that his mood is "good." He denied racing thoughts. He reported feeling motivated for rehab. There were no abnormal behaviors. He denied wishing and denied thoughts of suicide. Martínez denied violent thoughts or thoughts of homicide. He denied hallucinations, he denied feeling paranoid, there were no delusions during the interview. He was coherent, no short-term memory deficits Treatment Plan Update: No changes in the patient's medications. Awaiting rehab placement
--- NOTE | 2018-04-09 14:18 | SOCIAL WORKER PROG NOTE PSYCH ---
Social Work Progress Note Progress Note Psychiatric Community Health Worker Note This contract writer spoke with Vanesa from [facility] ([phone]) on 04.09.18 at 11: 30am and was notified that once the referral packet for the pt has been reviewed she will contact to discuss the referral process. 04.09.18 4:10pm update; phone screening has been scheduled, pt is to call Vanesa at [phone] on 04.10.18 at 11:30am to conduct phone screening. Vanesa also requested more recent PPD; EKG and Lab work is needed and should be faxed ([phone]) over as well. will be notified the morning of 04.10.18 of this request. Pt was also provided the contact number to the [facility] in [place] to try to follow up on information from his brother in law about their program. Yennifer Joy (Tish) Psychiatric Community Health Worker
--- NOTE | 2018-04-09 17:02 | SOCIAL WORKER PROG NOTE PSYCH ---
Social Work Progress Note Progress Note Attempted to see Martínez this afternoon, but he was deeply sleeping in his room. Late afternoon he seems to be napping alot.
[2018-04-09 20:06] VITALS: BP 143/78
[2018-04-10 07:41] VITALS: BP 131/65
--- NOTE | 2018-04-10 10:25 | SOCIAL WORKER PROG NOTE PSYCH ---
Social Work Progress Note Progress Note Martínez is feeling a little less hopeful and frustrated about getting into rehab. He said he doesn't seem to be getting anywhere with the [place] program and he had heard that they may only provide 10-20% for him and he would have to pay the rest. He doesn't have any money. He was informed that he has a screening today with Elmer at 11:30am. He is agreeable to a [facility] referral if he has to wait a week or two for rehab. Feels anxious about just waiting to see where he is going at this point. He has been talking to his Mother daily. I asked if he thought she would visit him at the hospital? He said he didn't think so. He hasn't had any visitors this admission. I asked about his friends from ? He said he doesn't have their phone numbers. Reports his phone screen is cracked and he left his phone at home. Attending groups on the unit, but reports he is mostly listening and just talking about his discharge plans.
--- NOTE | 2018-04-10 12:26 | CP SOUTH PROGRESS NOTE PSYCH ---
Psych (Inpt) Progress Note Progress Note The patient's progress, treatment plan, and aftercare plans were discussed in the treatment team meeting this morning. Team members included: LCSWs, RNs, OTR/ L, Activities Therapist, and Psychiatrist. Vital Signs: Date Time Temp Pulse B/P 04/10 0741 97.2 78 131/65 04/09 2006 98.1 90 143/78 Mental Status: Martínez was in bed resting, not sleeping. He was calm and cooperative, his speech was normal (not pressured, not slurred). He was alert and oriented to time, place, and person. He reported that he was anxious and that, otherwise, his mood was "good." He denied racing thoughts, reported feeling motivated for rehab. There were no abnormal behaviors. He denied wishing and denied thoughts of suicide. Marítnez denied violent thoughts or thoughts of homicide. He denied hallucinations, denied feeling paranoid, there were no delusions during the interview. He was coherent, no short-term memory deficits Treatment Plan Update: Reduce Librium to 10 mg daily for today and the weekend Otherise, no changes in the patient's other medications. Awaiting rehab placement
--- NOTE | 2018-04-10 17:10 | SOCIAL WORKER PROG NOTE PSYCH ---
Yennifer Joy 04/10/18 1649: Social Work Progress Note Progress Note Psychiatric Community Health Worker Note Pt completed phone screening with Vanesa Payne on 04.10.18 at 11:30am. Vanesa requested most recent PPD, EKG and labs to be faxed over. This will be done on Friday, 04.13.18 as the PPD results will be available at this time. Once this information is received and reviewed Vanesa will notify [facility] with the update of bed availibilty. This automobile and property underwriter met with the pt to discuss more options. Pt agreed to sign a release for [facility] for [facility] (application and clinical will be faxed on Friday, 04.13.18). Information for [facility] was discussed but the pt was not interested in attending the program so no referral will be made. Pt was provided an update of the status with Elmer as well. Yennifer "Elizabeth" Rufino Psychiatric Community Health Worker Sofi Smith 04/10/18 4073: Social Work Progress Note Progress Note This patient belongs to Amanda Peoples LCSW and has been sent to her for a co-sign.
[2018-04-10 19:55] VITALS: BP 147/64
[2018-04-11 07:36] VITALS: BP 117/71
--- NOTE | 2018-04-11 17:06 | CP SOUTH PROGRESS NOTE PSYCH ---
Psych (Inpt) Progress Note Progress Note Progress Note: Pt is a 37 year old single male self presented to the Emergency Department requested ETOH detox. At that time, pt was having suicidal thoughts to overdose on his medications. Pt using Marijuana, Cocaine and Alcohol Today, he feels "uhh". He is "better" but still sad. He does not have any suicidal thought. He thinks the recent medication changes helped his mood. He denied any medication side effect. He reported better sleep and energy level. He denied any hallucination. MMSE: Pt was alert and oriented x3. Pt reports he's feeling depressed and suicidal with a plan, he denies AH/VH. Pt states he hasn't been sleeping because he has not taken his medication Trazodone for the past 5 days as well as all his other psychotropic medications. Pt states he attempted suicidal January 17, 2018 by overdose on medicatiosn and he spent 4 weeks on the medical floor here at [facility]. Pt states he believes he is an addict because his primary problem is "all my drug use and drinking". Current Medications Sig/Minerva Start time Last Medication Dose Route Stop Time Status Admin Acetaminophen 650 MG Q6P PRN 04/02 1939 AC 04/11 PO 1632 Chlordiazepoxide HCl 10 MG 1400 04/10 1400 AC 04/11 PO 1455 Dicyclomine HCl 20 MG Q6-PRN PRN 04/01 1030 AC PO Fenofibrate 48 MG DAILY 03/31 900 AC 04/11 PO 0834 Fluoxetine HCl 60 MG DAILY 04/07 09 AC 04/11 PO 0834 Folic Acid 1 MG DAILY 03/31 09 AC 04/11 PO 0834 Gabapentin 1,200 MG Q6-PRN PRN 04/03 1215 AC 04/11 PO 1253 Loperamide HCl 2 MG Q4 HRS NEEDED PRN 04/01 1030 AC PO Multivitamins 1 TAB DAILY 03/31 900 AC 04/11 Therapeutic PO 0834 Nicotine 4 MG Q2 HRS NEEDED PRN 03/31 1245 AC 04/11 PO 1455 Olanzapine 5 MG DAILY 04/04 1021 AC 04/11 PO 0834 Olanzapine 15 MG AT BEDTIME 04/03 2100 AC 04/10 PO 2146 Ondansetron HCl 4 MG Q6-PRN PRN 04/01 1030 AC PO Thiamine HCl 100 MG DAILY 03/31 0900 AC 04/11 PO 0834 Trazodone HCl 100 MG AT BEDTIME 04/02 2100 AC 04/10 PO 2146 Vital Signs Date Time Temp Pulse Resp B/P B/P Pulse O2 O2 Flow FiO2 Mean Ox Delivery Rate 04/11 736 97.5 79 117/71 04/10 1955 98.3 85 147/64 Assessment: Pt is feeling better but still depressed. He still require Librium. Diagnosis: Unspecified bipolar disorder Alcohol use disorder severe Stimulants [cocaine] use disorder severe Cluster B personality traits Treatment Plan Update: Continue Librium to 10 mg daily Continue Prozac 60mg daily continue Zyprexa 5mg daily and 15mg QHS Trazodone 100mg QHS. Awaiting rehab placement
[2018-04-11 20:20] VITALS: BP 141/93
[2018-04-12 08:30] VITALS: BP 120/70
--- NOTE | 2018-04-12 13:31 | CP SOUTH PROGRESS NOTE PSYCH ---
Psych (Inpt) Progress Note Progress Note Pt is a 37 year old single male self presented to the Emergency Department requested ETOH detox. At that time, pt was having suicidal thoughts to overdose on his medications. Pt using Marijuana, Cocaine and Alcohol Today, pt feels "little better". He still thinks of his daughters and missed them a lot. He wants to connect with a therapist out side. He understand the limitation of medication in this matter. He denied any suicidality or medication side effect. He slept well. Current Medications Sig/Minerva Start time Last Medication Dose Route Stop Time Status Admin Acetaminophen 650 MG Q6P PRN 04/02 1939 AC 04/11 PO 1632 Chlordiazepoxide HCl 10 MG 1400 04/10 1400 AC 04/11 PO 1455 Dicyclomine HCl 20 MG Q6-PRN PRN 04/01 1030 AC PO Fenofibrate 48 MG DAILY 03/31 900 AC 04/12 PO 0839 Fluoxetine HCl 60 MG DAILY 04/07 900 AC 04/12 PO 0839 Folic Acid 1 MG DAILY 03/31 900 AC 04/12 PO 0839 Gabapentin 1,200 MG Q6-PRN PRN 04/03 1215 AC 04/12 PO 1257 Influenza Virus 0.5 ML ONCE ONE 04/12 0730 DC Vaccine IM 04/12 0731 Loperamide HCl 2 MG Q4 HRS NEEDED PRN 04/01 1030 AC PO Multivitamins 1 TAB DAILY 03/31 900 AC 04/12 Therapeutic PO 0839 Nicotine 4 MG Q2 HRS NEEDED PRN 03/31 1245 AC 04/12 PO 1201 Olanzapine 5 MG DAILY 04/04 1021 AC 04/12 PO 0839 Olanzapine 15 MG AT BEDTIME 04/03 2100 AC 04/11 PO 2139 Ondansetron HCl 4 MG Q6-PRN PRN 04/01 1030 AC PO Thiamine HCl 100 MG DAILY 03/31 900 AC 04/12 PO 0839 Trazodone HCl 100 MG AT BEDTIME 04/02 2100 AC 04/11 PO 213 Vital Signs Date Time Temp Pulse Resp B/P B/P Pulse O2 O2 Flow FiO2 Mean Ox Delivery Rate 04/12 830 96.2 76 120/70 04/11 2020 96.5 83 141/93 MMSE: Pt was alert and oriented x3. He feels "good". He affect is brighter. No suicidality, homicidality or hallucination. His thought is logical and goal oriented. His speech is soft. He is cooperative. Good eye contact. He is appropraitely dressed. Has good insight and jugement. Assessment: Pt is feeling better. He misses his daughter and wants outpatient therapy. Diagnosis: Unspecified bipolar disorder Alcohol use disorder severe Stimulants [cocaine] use disorder severe Cluster B personality traits Treatment Plan Update: Continue Librium to 10 mg daily Continue Prozac 60mg daily continue Zyprexa 5mg daily and 15mg QHS Trazodone 100mg QHS. Awaiting rehab placement
[2018-04-12 19:53] VITALS: BP 137/96
[2018-04-13 07:40] VITALS: BP 128/84
--- NOTE | 2018-04-13 08:48 | CP SOUTH PROGRESS NOTE PSYCH ---
Psych (Inpt) Progress Note Progress Note I reviewed Dr. Rahman's notes (covering for the weekend of 04/11 and 2017). The patient's progress, treatment plan, and aftercare plans were discussed in the treatment team meeting this morning. Team members included: LCSWs, RNs, OTR/ L, Activities Therapist, and Psychiatrist. Vital Signs Date Time Temp Pulse B/P B/P O2 04/13 0740 97.8 87 128/84 04/12 1953 98.4 90 137/96 Mental Status: Martínez was in bed napping (at 1:35 p.m.), he was in deep sleep when I woke him up He was calm, cooperative, his speech was normal (not pressured, not slurred). He was alert and oriented to time, place, and person. He reported that his mood was "good." He denied racing thoughts, reported feeling motivated for rehab. There were no abnormal behaviors. He denied wishing and denied thoughts of suicide. Martínez denied violent thoughts or thoughts of homicide. He denied hallucinations, denied feeling paranoid, there were no delusions during the interview. He was coherent, no short-term memory deficits Treatment Plan Update: D/C Librium Otherise, no changes in the patient's other medications. Awaiting rehab placement
--- NOTE | 2018-04-13 10:31 | SOCIAL WORKER PROG NOTE PSYCH ---
Social Work Progress Note Progress Note Psychiatric Community Health Worker Note Faxed the remaining request to Vanesa from [facility] [place] ([phone]) of the pt's most recent PPD, EKG and lab results on 04.13.18 at 10:21am. Called Vanesa at 10:29am and left a message to check the status of bed availability. Per Amanda, updated med list is needed and beds are projected to be available mid-week/next week. Faxed application and clinical to [facility] of [place](04.13.18 at 4:16pm) and [place](04.13.18 at 4:18pm). Will follow up on 04.14.18 to check bed availability and schedule/conduct phone screenings. Yennifer Joy (Tish) Psychiatric Community Health Worker
--- NOTE | 2018-04-13 12:33 | SOCIAL WORKER PROG NOTE PSYCH ---
Social Work Progress Note Progress Note Martínez is anxiously waiting a call from the woman at the rehab in [place]. He reports that his brother suzie stated he should receive a call today. Appears more anxious today, leg shaking as we met. He reports his weekend went well. Sleeping okay, but stated he had drug dreams last night. Denies thoughts about using or SI today. He talked about trying to go off the thought that he is in control of his plan. Embracing "it is in God's hands." Talking about the need to go home and get some clothes or belongings before he leaves. Tried to brainstorm ideas of how he can avoid that scenerio and go door to door. He seemed to have a barrier for everyone I mentioned as a possibility to help. Vanesa from [facility] called to request an updated med list. Stated that she is presenting his information to the team. If approved she is looking at an opening end of this week, early next week. Martínez seems to have gotten very close to a female here during her stay. They have been spending alot of time together. Patient left today and I believe they plan to stay in contact.
--- NOTE | 2018-04-13 15:41 | SOCIAL WORKER PROG NOTE PSYCH ---
Social Work Progress Note Progress Note completed [facility] REVIEW - CONCURRENT.
[2018-04-13 19:50] VITALS: BP 139/91
[2018-04-14 07:44] VITALS: BP 116/71
--- NOTE | 2018-04-14 07:55 | CP SOUTH PROGRESS NOTE PSYCH ---
Psych (Inpt) Progress Note Progress Note The patient's progress, treatment plan, and aftercare plans were discussed in the treatment team meeting this morning. Team members included: LCSWs, RNs, OTR/ L, Activities Therapist, and Psychiatrist. Vital Signs: Date Time Temp Pulse B/P B/P O2 04/14 0744 96.7 85 116/71 04/13 1950 98.4 97 139/91 Mental Status: Martínez was seen at 1:45 p.m. with Amanda Peoples LCSW He wants to go to [facility]pite since there is a bed available today He seemed to be in good spirits. He was calm, cooperative, his speech was normal (not pressured, not slurred). He was alert and oriented to time, place, and person. He reported that his mood has been "good." He denied racing thoughts, denied wishing and denied thoughts of suicide. Martínez denied violent thoughts or thoughts of homicide. He denied hallucinations, denied feeling paranoid, there were no delusions during the interview. He was coherent, no short-term memory deficits Treatment Plan Update: D/C to [facility]
--- NOTE | 2018-04-14 11:38 | SOCIAL WORKER PROG NOTE PSYCH ---
Social Work Progress Note Progress Note Martínez was in bed resting late this afternoon. Reported he felt a little bored and just didn't feel like sitting out in the lounge area. He did attend group this morning. Asked if he ended up hearing anything from [facility]? He said he hadn't and is still waiting to hear. I told him that if he was accepted to [facility] they may not have a bed until later this week or early next week. Asked if he had called [facility]? He reported that he lost the phone number and needed it again. I asked what was going on between him and another female that left the unit yesterday? He smiled and denied that there is anything really going on right now. I reminded him that he has disclosed that women are a trigger for him. Asked him if he really thought being in a relationship was helpful right now in his recovery? He stated that it was not going to get in the way of his plan of going to rehab and that is still his focus. Gave him the number to call [facility] to check on bed availability. Later recieved a call from Viviana clinical pillowcase cutter at [facility]. She asked to screen Martínez. Martínez did the screening. She offered him a bed today. Martínez is interested in taking that bed. Had some discussion on whether or not this was not the best d/c plan or if he should remain here in the hospital. Ultimately Martínez said he would not being going from here directly to rehab due to needing to get belongings. We decided to have him take the bed today at [facility]. Prefers to be referred to [facility] for IOP because of the convenience. Stated his goal is still to get to rehab. Referral was faxed to [facility]. He will have to follow up with [facility] for his intake. Martínez called a friend (Jc) for a ride to [facility].
--- NOTE | 2018-04-14 11:39 | SOCIAL WORKER PROG NOTE PSYCH ---
Social Work Progress Note Progress Note Psychiatric Community Health Worker Note Spoke with Vanesa from [facility]([phone]) and was notified that the medical team is reviewing the EKG and lab results of the pt and will provide an update/decision of the acceptance or denial of the referral by tomorrow(04.15.18) morning Pt ended up discharging today(04.14.18) due to bed availability at [facility]. Per Amanda Peoples, [facility] request, filled out [facility] referral application and faxed the document along with supporting documents(Amanda recorded this information as transition of care). Yennifer "Carlota Joy Psychiatric Community Health Worker
--- NOTE | 2018-04-14 13:51 | DISCHARGE SUMMARY REPORT-PSYCH ---
Visit Information Visit Dates/Diagnosis' Admission Date: 03/30/18 Discharge Date: 04/14/18 Reason for Admission: thoughts of suicide Psy Discharge Primary Diag: Unspecified Bipolar Disorder Psy Discharge Secondary Diag: Alcohol Use Disorder, Cocaine Use Disorder Hospital Course Significant Lab Findings: Lab Cholesterol 231 MG/DL H 03/31/18 0653 Cholesterol/HDL Ratio 5 % H 03/31/18 0653 HDL Cholesterol 42 mg/dL 03/31/18 0653 Hemoglobin A1c 5.0 % 02/03/18 0645 LDL Cholesterol Direct 114.29 mg/dL H 02/03/18 0645 LDL Cholesterol, Calc 154 mg/dL H 03/31/18 0653 Triglycerides 177 mg/dL H 03/31/18 0653 Course Complications: Patient did not have any complications while he was on the inpatient psychiatric unit. Consultations: General Information and [facility] MD Statement: I have seen and personally examined MAYO SÁNCHEZ and documented this H&P. The patient is a 37 year old M who was admitted for the treatment of alcohol use disorder and suidication ideation. Source of Information: patient History of Present Illness: The patient is a 37 year old M who was admitted for the treatment of alcohol use disorder and suidication ideation. Medical consult is called for medical comanagement. Had suicidal thoughts of killing himself by ingesting all of his medications,. He admits that he has a history of hyperlipidemia and was taking statin intermittently. He has a history of high blood pressure problem but does not take any medications. He has a family doctor but he does not follow with him regularly. Patient says that he drinks alcohol daily.. Patient says that he drinks 2 beers of alcohol dailyand his last drink was 4 AM yesterday. He also smokes 1 pack cigarettes daily. He admits taking cocaine as well. His last use of cocaine was on Friday. Patient denies any chest pain, palpitations, shortness of breath, nausea vomiting or abdominal pain. Denies any anxiety, denies any active suicidal thoughts at this moment. Allergies/Medications Allergies: Coded Allergies: cyclobenzaprine (TREMORS 08/07/17) bupropion (Mild, Increase in afshan, reported on a previous admission 08/07/17) Home Med list Chlorpromazine HCl 25 MG TABLET 3 TAB PO Q6P PRN off-label for anxty/agitation Divalproex Sodium 500 MG TABLET.DR 2 TAB PO 2200 bipolar disorder Divalproex Sodium (Depakote) 250 MG TABLET. 3 TAB PO DAILY bipolar disorder Fenofibrate (Tricor) 48 MG TABLET 1 MG PO DAILY high triglycerides Fluoxetine HCl (Prozac) 20 MG CAPSULE 60 MG PO DAILY MENTAL HEALTH (Reported) Fluoxetine HCl 20 MG CAPSULE 3 CAP PO DAILY depression Folic Acid 1 MG TABLET 1 MG PO DAILY folate supplement Gabapentin 300 MG CAPSULE 2 CAP PO Q6P PRN OFF-LABEL FOR ANXIETY Multivitamin (One Daily Multivitamin) 1 EACH TABLET 1 TAB PO DAILY vitamin supplement Nicotine (Nicorelief) 2 MG GUM 1 GUM PO Q2P PRN nitoine craving Olanzapine (Zyprexa Zydis) 10 MG TAB.RAPDIS 2 TAB PO 0 Bipolar disorder Thiamine HCl (Vitamin B-1) 100 MG TABLET 1 TAB PO DAILY thiamine supplement Trazodone HCl 100 MG TABLET 1 TAB PO QPM SLEEP HELP Compliance With Home Meds: POOR Past History Travel History Traveled to [place] past 21 day No Medical History Neurological: delerium tremens, restless leg syndrome, ETOH withdrawal seizures EENT: NONE Cardiovascular: hypertension, hyperlipidemia Respiratory: NONE Gastrointestinal: NONE Hepatic: NONE Renal: NONE Musculoskeletal: Left knee meniscal tear Psychiatric: alcohol dependence, anxiety, bipolar disease, depression, insomnia, substance abuse, Suicidal ideation, overdose suicide attempt X 15 Endocrine: NONE Blood Disorders: NONE Cancer(s): NONE 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 Home Who Do You Live With? self Services at Home: None Primary Language: Omani ETOH Use: alcoholic Illicit Drug Use: cocaine Functional Ability ADLs Independent: dressing, eating, toileting, bathing. Ambulation: independent IADLs Independent: shopping, housework, finances, food prep, telephone, transportation , medication admin. Review of Systems Review of Systems Constitutional: Denies: no symptoms. EENTM: Denies: no symptoms. Cardiovascular: Denies: no symptoms. Respiratory: Denies: no symptoms. GI: Denies: no symptoms. Genitourinary: Denies: no symptoms. Musculoskeletal: Denies: no symptoms. Skin: Denies: no symptoms. Neurological/Psychological: Reports: other (alcohol withdrawal seizures). Exam & Diagnostic Data Last 24 Hrs of Vital Signs/I&O Vital Signs Date Time Temp Pulse Resp B/P B/P Pulse O2 O2 Flow FiO2 Mean Ox Delivery Rate 03/30 2212 98.4 78 141/95 03/30 2115 98.6 66 18 130/70 03/30 2115 98.6 66 18 130/70 95 Room Air 03/30 1915 98.6 95 18 132/80 95 Room Air 03/30 1730 98.1 80 16 138/78 99 Room Air Room Air 03/30 1322 98 Room Air 03/30 1316 98.6 111 18 177/93 03/30 1200 98.6 111 18 177/93 98 Room Air Intake & Output 03/31 0800 03/31 0000 03/30 1600 Intake Total 0 Output Total Balance 0 Intake, IV 0 Patient 240 lb 240 lb Weight Weight Reported by Patient Measurement Method Physical Exam General Appearance Alert, Oriented X3, Cooperative, No Acute Distress, Mild Distress Skin No Rashes, No Breakdown HEENT Atraumatic, PERRLA, EOMI Neck Supple, No JVD Cardiovascular Regular Rate, Normal S1, Normal S2 Lungs Clear to Auscultation, Normal Air Movement Abdomen Soft, No Tenderness Neurological Exam Findings: Normal Gait, Normal Speech, Strength at 5/5 X4 Ext Cranial Nerves II through XII: normal. Extremities No Edema, Normal Pulses Vascular Normal Pulses Assessment/Plan Assessment: A/p: #Suicidal ideation: Patient has suicidal thought of killing himself by ingesting multiple medications. Patient was seen by psych and currently admitted to inpatient psych. Further management as per the psychiatric team. Patient Is on multiple psychiatric medications deferred to psych. #Polysubstance abuse: Into his alcohol dependent, uses cocaine and marijuana. Last used marijuana and cocaine on Friday as per the patient. With CIWA protocol, currently not in withdrawal, needs monitoring. Continue thiamine, folic acid. #Tobacco abuse: Continue with the nicotine patch. #Hyperlipidemia: Check lipids. Patient is on fenofibrate at home will continue that. #Hypertension: Patient is not on any medications. Monitor the blood pressure. If the blood pressure is elevated can consider Norvasc [address]Ravinder Fina MD. Hospitalist. Pager: [phone], cell: [phone]. As Ranked By This Provider Problem List: 1. Alcohol use disorder 2. Polysubstance abuse 3. Depression with suicidal ideation 4. Tobacco abuse 5. Cocaine abuse Miscellaneous Miscellaneous Documentation Attending Case Discussed With: Ann Chen MD Primary Care Physician: Niko Hernandez MD Patient sees these Specialists none Level of Patient Care: [facility] DICTATED BY: Holden Santos MD DATE/TIME DICTATED:03/31/1857 WATERMELON INSPECTOR:MANPREET DATE/TIME TRANSCRIBED:03/31/1857 REPORT NUMBER:[id number] CONFIDENTIAL, DO NOT COPY WITHOUT APPROPRIATE AUTHORIZATION. <Electronically signed by Holden Santos MD> 03/31/18 Allergies: Coded Allergies: cyclobenzaprine (TREMORS 08/07/17) bupropion (Mild, Increase in afshan, reported on a previous admission 08/07/17) Hospital Course/TX Response: 03/31/2018: Initial impression and Plan: 37-year-old white male who is very well known to the inpatient psychiatric unit at [facility] from numerous admissions mostly for suicidal thinking in the context of relapsing to alcohol. This was a very similar presentation Diagnosis(es): Unspecified bipolar disorder Alcohol use disorder severe Stimulants [cocaine] use disorder severe Cluster B personality traits Initial Treatment Plan: Inpatient psychiatric care with safety checks every 15 minutes and Alcohol detoxification protocol Continue same medications as per previous discharge. 04/01/2018: Imodium 4 mg once now Bentyl 40 mg once now Zofran 4 mg once Librium 25 mg once Continue Alcohol detoxification protocol Continue other medications as follows: Current Medications Divalproex Sodium 500 MG DAILY 03/31 900 AC 04/01 Fenofibrate 48 MG DAILY 03/31 900 AC 04/01 Fluoxetine HCl 20 MG DAILY 03/31 900 AC 04/01 Folic Acid 1 MG DAILY 03/31 900 AC 04/01 Gabapentin 400 MG Q8 PRN 03/30 2200 AC 04/01 Lorazepam 1 MG FOUR TIMES A DAY 04/01 1400 UNVr Lorazepam 1 MG ONE ONE 04/01 1015 AC 04/01 Multivitamins 1 TAB DAILY 03/31 900 AC 04/01 Nicotine 4 MG Q2 HRS NEEDED PRN 03/31 1245 AC 04/01 Olanzapine 10 MG AT BEDTIME 03/31 2100 AC 03/31 Thiamine HCl 100 MG DAILY 03/31 0900 AC 04/0104/02/2018: D/C CIWA Change Ativan to Librium (total benzo dose for today will be 1mg Ativan + 75 mg Librium) Divalproex 500 mg DAILY Fluoxetine HCl 20 MG DAILY Increase Gabapentin to 800 mg [id number] Olanzapine 10 MG AT BEDTIME 04/03/2018: I discussed every single medication that Gustabo is taking. We discussed side effects, effectiveness of these medications, and alternatives and options. We agreed on the following plan: Increase Prozac to 40 mg daily starting tomorrow with the plan of going back to the target dose of 60 mg that he was taking before coming in. Reduce Depakote ER to just 250 mg with the plan of discontinuing it next week Increase olanzapine tonight to 15 mg and as of tomorrow morning 5 mg in the morning and 50 mg at bedtime Increase gabapentin as needed to 1200 mg every 6 hours to a maximum of 3 doses in 24 hours 04/04/2018: Per Dr. Evans's note, I am adding olanzapine 5 mg every morning. IMPRESSION: Slow progress. Continue present treatment plan. 04/05/2018: Slow progress. Continue present treatment plan. 04/06/2018: I discussed every single medication that Gustabo is taking. We discussed side effects, effectiveness of these medications, and alternatives and options. We agreed on the following plan: Increase Prozac to 60 mg daily starting tomorrow D/C Depakote ER olanzapine 5 mg in AM and 15 mg QHS gabapentin as needed 1200 mg every 6 hours to a maximum of 3 doses in 24 hours 04/07/2018: I discussed medications with Gustabo including side effects, effectiveness of these medications, and alternatives and options. We agreed on the following plan: Reduce Librium to 25 mg Q2Pm and 25 mg at bedtime Continue Prozac 60 mg daily olanzapine 5 mg in AM and 15 mg QHS gabapentin as needed 1200 mg every 6 hours to a maximum of 3 doses in 24 hours 04/08/2018: Reduce Librium to 25 mg once daily at 2:00 p.m. Continue all other medications unchanged 04/09/2018: No changes in patient's medications, awaiting rehab placement 04/10/2018: Reduce Librium to 10 mg daily for today and the weekend Otherise, no changes in the patient's other medications. Awaiting rehab placement 04/11/2018: No changes in patient's medications. 04/12/2018: No changes in patient's medications. 04/13/2018: D/C Librium Otherise, no changes in the patient's other medications. Awaiting rehab placement 04/14/2018: Mental Status: Mayo was seen at 1:45 p.m. with Amanda Peoples LCSW He wants to go to Respite since there is a bed available today He seemed to be in good spirits. He was calm, cooperative, his speech was normal (not pressured, not slurred). He was alert and oriented to time, place, and person. He reported that his mood has been "good." He denied racing thoughts, denied wishing and denied thoughts of suicide. Mayo denied violent thoughts or thoughts of homicide. He denied hallucinations, denied feeling paranoid, there were no delusions during the interview. He was coherent, no short-term memory deficits Treatment Plan Update: D/C to Respite/Crisis awaiting Residential rehab Discharge HBIPS - Tobacco Use Treatment Offered Post DC Medications Offered: Refused Tob Medication Tx Post DC Tobacco Treatment Plan: Refused Tobacco Tx Pgm - EtOH/Drug Use D/O Treatment Offered Post DC Medications Offered: Med Not Indicated for D/O Post DC EtOH/SubAbuse TX Plan: Other SubAbuse/Dual Pgm Metabolic Screening - Screen if on a Neuroleptic Medication - Metabolic screening should include: - Blood Pressure, BMI, Glucose or Hgb A1c, & a - Lipid profile from within the past 365 days. Metabolic Screening Patient on a neuroleptic(s) . Enter below results for Hemoglobin A1C, and lipid panel if obtained during the last 365 days. BMI: 30.800 Blood Pressure: 116/71 Laboratory Results From [facility] (If applicable): Cholesterol 231 MG/DL H 03/31/18 0653 Cholesterol/HDL Ratio 5 % H 03/31/18 0653 HDL Cholesterol 42 mg/dL 03/31/18 0653 Hemoglobin A1c 5.0 % 02/03/18 0645 LDL Cholesterol Direct 114.29 mg/dL H 02/03/18 0645 LDL Cholesterol, Calc 154 mg/dL H 03/31/18 0653 Triglycerides 177 mg/dL H 03/31/18 0653 Discharge Instructions General Discharge Information Multiple Neuroleptics: Not Applicable Discharge Diet Regular Discharge Activity Normal DC Disposition: [facility] awaiting residential rehab placement Referrals Ordered Referrals Provider Referral 04/14/18 For Groups: [facility] [place] admission 04/14/18 Rodrigo Luther [place], [place] [phone] Provider Referral For Groups: [[facility]] [facility] for mental health and substance use Patient will need to call [phone] to get intake appt. Prescriptions Stop taking the following medications: Divalproex Sodium (Divalproex Sodium) 500 MG TABLET. ORAL 2200 Qty = 60 Gabapentin (Gabapentin) 300 MG CAPSULE ORAL EVERY SIX HOURS NEEDED as needed for OFF-LABEL FOR ANXIETY Qty = 180 Chlorpromazine HCl (Chlorpromazine HCl) 25 MG TABLET ORAL EVERY SIX HOURS NEEDED as needed for off-label for anxty/agitation Qty = 270 Divalproex Sodium (Depakote) 250 MG TABLET. ORAL DAILY Qty = 90 Folic Acid (Folic Acid) 1 MG TABLET ORAL DAILY Qty = 30 Thiamine HCl (Vitamin B-1) 100 MG TABLET ORAL DAILY Qty = 30 Multivitamin (One Daily Multivitamin) 1 EACH TABLET ORAL DAILY Qty = 30 Fluoxetine HCl (Prozac) 20 MG CAPSULE ORAL DAILY Continue taking these medications: Nicotine (Nicorelief) 2 MG GUM 1 Gum ORAL EVERY 2 HOURS NEEDED as needed for nitoine craving Qty = 100 Comments: Last Taken: (4MG DOSE) ON 04/14/18 Time: 1343 Fenofibrate (Tricor) 48 MG TABLET 1 Milligram ORAL DAILY Qty = 30 Comments: Last Taken: 04/14/18 Time: 0900 Trazodone HCl (Trazodone HCl) 100 MG TABLET 1 Tablet ORAL Every night Qty = 30 Comments: Last Taken: 04/13/18 Time: 2200 This prescription has been renewed Fluoxetine HCl (Fluoxetine HCl) 20 MG CAPSULE 3 Capsule ORAL DAILY Qty = 90 Comments: Last Taken: 04/14/18 Time: 0900 This prescription has been renewed Olanzapine (Zyprexa Zydis) 10 MG TAB.RAPDIS 2 Tablet ORAL 2199 Qty = 60 Comments: RECEIVED 5MG OF ZYPREXA AT 04/14/18 AT 0900 AND LAST RECEIVED 15MG OF ZYPREXA ON 04/13/18 AT 2200 HOWEVER PER PSYCHIATRIST, FOLLOW DISCHARGE INSTRUCTIONS PER MD FOR ZYPREXA MOVING FORWARD. This prescription has been renewed Start taking the following new medications: Gabapentin (Gabapentin) 400 MG CAPSULE 1,200 Milligram ORAL EVERY 6 HOURS NEEDED as needed for anxiety (max 3 doses/day) Qty = 90 No Refills Comments: Last Taken: 04/14/18 Time: 1000 Studies Pending at Discharge None Copies To: [facility]/ [facility] Dual
--- NOTE | 2018-04-14 13:54 | Patient Discharge Instructions ---
Psych Discharge Inst General Discharge Information Reason for Admission: thoughts of suicide Psy Discharge Primary Diag+ Unspecified Bipolar Disor Psy Discharge Secondary Diag+ Cocaine Use Disorder Alcohol use Disorder Summary Tests/Major Procedures Lab Cholesterol 231 MG/DL H 03/31/18 0653 Cholesterol/HDL Ratio 5 % H 03/31/18 0653 HDL Cholesterol 42 mg/dL 03/31/18 0653 Hemoglobin A1c 5.0 % 02/03/18 0645 LDL Cholesterol Direct 114.29 mg/dL H 02/03/18 0645 LDL Cholesterol, Calc 154 mg/dL H 03/31/18 0653 Triglycerides 177 mg/dL H 03/31/18 0653 Studies Pending at DC: None Patient Instructions Contact Information Your Psychiatrist on [facility] was Marta PRIETO,Barry * If you are experiencing an emergency related to this hospitalization, please call [phone] to contact the treating psychiatrist or the psychiatrist-on- call. * To Request a copy of your medical records, please contact the Medical Records Department at [phone]. * To request results of studies pending at the time of discharge, please call [phone]. * Continue your Medications until directed to stop by your Healthcare provider. General Medication Information Please continue to take your new medications and your continued home medications , unless otherwise indicated on your discharge medication list, or unless directed by your MD or PROCESSING SPECIALIST to stop them. Special Instructions Diet Regular Activity Normal - Tobacco Use Treatment Offered Post DC Medications Offered: Refused Tob Medication Tx Post DC Tobacco Treatment Plan: Refused Tobacco Tx Pgm - EtOH/Drug Use D/O Treatment Offered Post DC Medications Offered: Med Not Indicated for D/O Post DC EtOH/SubAbuse TX Plan: Other SubAbuse/Dual Pgm Metabolic Screening Patient on a neuroleptic BMI: 30.800 Blood Pressure: 116/71 Laboratory Results From [facility] (If applicable): Lab Cholesterol 231 MG/DL H 03/31/18 0653 Cholesterol/HDL Ratio 5 % H 03/31/18 0653 HDL Cholesterol 42 mg/dL 03/31/18 0653 Hemoglobin A1c 5.0 % 02/03/18 0645 LDL Cholesterol Direct 114.29 mg/dL H 02/03/18 0645 LDL Cholesterol, Calc 154 mg/dL H 03/31/18 0653 Triglycerides 177 mg/dL H 03/31/18 0653 Advance Directives Does the Patient have Medical Advance Directives No/Refused further info Does Pt have Psychiatric Advance Directives? No/Refused further info Does Patient have a Designated Surrogate Decision Maker: No Information About Psychiatric Advance Directives Provided? Refused Discharge Plan Post Hospital Treatment Plan: [facility] then [facility]; [facility]
[2018-04-14] MEDS ORDERED: TRAZODONE HCL100 M1 PO (14:00)
[2018-04-14] MEDS ORDERED: GABAPENTIN400 M2 PO (14:00)
[2018-04-14] MEDS ORDERED: ZYPREXA ZYDIS PO (14:00)
[2018-04-14] MEDS ORDERED: FLUOXETINE HCL20 M2 PO (14:00)
--- NOTE | 2018-04-14 15:33 | SOCIAL WORKER PROG NOTE PSYCH ---
Social Work Progress Note Faxed Referral(s) 1 Referred To: [facility] [place] [facility] Care Documents sent: Health Summary, W10 Faxed to: [facility] Fax #: [phone] Faxed by: Amanda Peoples Date faxed: 04/14/18 Time Faxed: [phone] Faxed Referral(s) [address]: [facility] Transition of Care Documents sent: Health Summary, W10 Faxed to: [facility] Fax #: [phone] Faxed by: Amanda Peoples Date faxed: 04/14/18 Time Faxed: [phone]
--- NOTE | 2018-04-15 08:46 | SOCIAL WORKER PROG NOTE PSYCH ---
Social Work Progress Note Progress Note Psychiatric Community Health Worker Note Left a message to update pt discharge status and location to both [facility] and [facility] at [facility] as the pt is on waitlist for bed availability. Nivia Jordan" [facility] CHW Determination Status: DISCHARGE COMPLETED Thank you. You have completed your discharge for this episode of care. Member Name Member ID Member Subscriber Name Subscriber ID MAYO SÁNCHEZ [id number] MAYO SÁNCHEZ [id number] Related Authorization # Related Client Authorization # Discharge # Discharge Date [id number] 04/14/2018 Level of Service Type of Service Level Of Care Type of Care IP - INPATIENT/HLOC P - MENTAL HEALTH I - INPATIENT CIP - INPATIENT HOSPITAL - INPATIENT HOSPITAL Provider Name & Address Provider ID Provider Alternate ID NIVIA GONZALEZ [id number] [facility]
== END 2018-04-14 14:26 | DRG 753 ==
LOC: ERH 11:56 → CP SOUTH 21:49 → ERHI 21:49 → CP SOUTH 22:11
PROVIDERS: Emergency Medicine; Hospitalist
DX: F31.9 Bipolar disorder, unspecified (principal); F14.90 Cocaine use, unspecified, uncomplicated; F10.10 Alcohol abuse, uncomplicated
CPT/HCPCS: 36415; 80307; 93005; 93010; G0463; G0480; J3101; J3490; Q2036